=== PATIENT | male | born 1955 | race Caucasian/White ===

== ENCOUNTER → 2017-03-03 | Outpatient (REF) | payer OTHER ==
[~2017-03-03] MED LIST: ALDA25TA2 PO; ASPI1TAB PO; ASPI325T OR; AZOR PO; B12 PO; CALC1CAP31 PO; CALCCHW12 OR; COLA100C5 PO; CORE25TA PO; CORL1.7T PO; D 50CAP PO; EFFI10TA4 PO; FERR325T3 PO; FOLI1TAB OR; FOLI800T PO; HYDR-3910 PO; HYDR10TA3 OR; HYDR200T3 PO; HYDR25TA7 OR; IMDU60TA OR; INSULANT SC; INSULIN; INSUR50VL SC; ISOS30TAB PO; ISOS60TA2 PO; LACT10SO29 PO; LINZ290C PO; MAGN400T PO; METH2.5TA PO; MIRA33504 PO; NITR4TASL SL; OMEP20TA7 OR; OXYC1TAB23 PO; POTA20TA2 OR; PRAV80TA2 PO; PRED25TA PO; PROBCAP8 PO; PROT1TAB2 PO; RENEXA; RHEU2.5T PO; SENO8.6T5 PO; TERA5CAP OR; TOPR25TA OR; TORS20TA2 OR; TORS20TA2 PO; VIT D 2000 PO; VITA-108 PO; VITA250T19 PO; VITA500T3 PO; ZOCO80TA OR; ZYLO300T4 PO; [UNRECOGNIZED DRUG - OTHER]
[2017-03-03 18:23] LABS: FREE T4 1.08 NG/DL (0.76-1.46)
== END ==
LOC: M LAB REF 17:16
PROVIDERS: ATTEND Internal Medicine Nephrology
DX: E03.9 Hypothyroidism, unspecified (principal)

== ENCOUNTER 2018-03-05 09:40 | Inpatient (IN) | payer OTHER, MEDICARE ==
[2018-03-05 11:03] LABS: VENOUS BASE EXCESS 6.1 (-2.0-2.0); VENOUS HCO3 33.1 MEQ/L (23.0-27.0); VENOUS O2 SATURATION 45.6 % (60.0-80.0); VENOUS PARTIAL PRESSURE CO2 60.5 mmHg (38.0-50.0); VENOUS PARTIAL PRESSURE O2 27.5 mmHg (30.0-50.0); VENOUS PH 7.356 UNITS (7.330-7.430)
[2018-03-05 11:08] LABS: BASO % 0.3 % (0.0-1.0); HEMATOCRIT 32.5 % (42.0-52.0); HEMOGLOBIN 10.2 g/dl (13.5-17.5); IMMATURE GRANULOCYTE % 0.3 % (0-3.0); LYMPH # 0.4 10^3/uL (1.5-4.5); LYMPH % 5.7 % (24.0-44.0); MEAN CORPUSCULAR HEMOGLOBIN 32.2 pg (27.0-33.0); MEAN CORPUSCULAR HGB CONC 31.4 g/dl (32.0-36.5); MEAN CORPUSCULAR VOLUME 102.5 fl (80.0-96.0); MONO # 0.3 10^3/uL (0.0-0.8); MONO % 3.7 % (0.0-5.0); NEUTROPHILS # 6.1 10^3/uL (1.8-7.7); PLATELET COUNT, AUTOMATED 187 10^3/uL (150-450); RED BLOOD COUNT 3.17 10^6/uL (4.30-6.10); RED CELL DISTRIBUTION WIDTH 15.1 % (11.5-14.5); WHITE BLOOD COUNT 6.8 10^3/uL (4.0-10.0)
[2018-03-05 11:19] LABS: INR 1.09; PROTHROMBIN TIME 14.3 SECONDS (12.1-14.4)
[2018-03-05 11:32] LABS: LACTIC ACID SEPSIS PROTOCOL 1.3 MMOL/L (0.4-2.0)
[2018-03-05 11:41] LABS: ALBUMIN 2.9 GM/DL (3.2-5.2); ALBUMIN/GLOBULIN RATIO 0.67 (1.00-1.93); ALKALINE PHOSPHATASE 78 U/L (45-117); ALT/SGPT 21 U/L (12-78); ANION GAP 10 MEQ/L (8-16); AST/SGOT 27 U/L (7-37); BILIRUBIN,DIRECT 0.2 MG/DL (0.0-0.2); BILIRUBIN,TOTAL 0.6 MG/DL (0.2-1.0); BLOOD UREA NITROGEN 57 MG/DL (7-18); CALCIUM LEVEL 8.8 MG/DL (8.8-10.2); CARBON DIOXIDE LEVEL 31 MEQ/L (21-32); CHLORIDE LEVEL 102 MEQ/L (98-107); CPK CREATINE PHOSPHOKINASE 72 U/L (39-308); CREATININE FOR GFR 2.42 MG/DL (0.70-1.30); GLOMERULAR FILTRATION RATE 29.3 (>49); GLUCOSE, FASTING 90 MG/DL (70-100); MB/CK RELATIVE INDEX 3.47 (< OR =4); NT-PRO BNP 8732 PG/ML (<125); SODIUM LEVEL 143 MEQ/L (136-145); TOTAL PROTEIN 7.2 GM/DL (6.4-8.2); TROPONIN I 0.08 NG/ML (< 0.10)
[2018-03-05] MEDS ORDERED: ONDANSETRON 4 MG TAB (S0181) PO (13:15)
[2018-03-05] MEDS ORDERED: NITROGLYCERIN 0.4 MG SUBL TABLET SL ×2 (13:15→13:30)
[2018-03-05] MEDS ORDERED: SENNA 8.6 MG TAB (SENOKOT) PO (13:15)
[2018-03-05] MEDS ORDERED: MIRALAX *UNIT DOSE* 17GM PACKET PO (13:15)
[2018-03-05] MEDS ORDERED: DEXTROSE 50% 50 ML SYRINGE IV (13:30)
[2018-03-05] MEDS ORDERED: GLUCAGON FOR INJ 1 MG VIAL (J1610) SC (13:30)
[2018-03-05] MEDS ORDERED: GLUCOSE 4 GM CHEW TABLET PO (13:30)
[2018-03-05] MEDS ORDERED: PILL CRUSHER/CUTTER 1 EACH XX (14:00)
[2018-03-05 14:29] LABS: IRON (FE) 40 UG/DL (65-175); PERCENT SATURATION 10.9 % (19.7-50.0); TOTAL IRON BINDING CAPACITY 367 UG/DL (250-450); URIC ACID 5.4 MG/DL (3.5-7.2)
[2018-03-05 15:04] LABS: BEDSIDE GLUCOSE 167 MG/DL (80-115)
[2018-03-05] MEDS: LEVEMIR (INSULIN DETEMIR) 1 UNITS/0.01ML SC (15:10)
[2018-03-05] MEDS: HEPARIN SOD (PORCINE) 5000 UNITS/ML VIAL SC ×2 (15:10→21:36)
[2018-03-05 16:31] LABS: TROPONIN I 0.08 NG/ML (< 0.10)
[2018-03-05] MEDS: ISOSORBIDE MON. (IMDUR) 30 MG XR TAB PO ×2 (17:13→17:18)
[2018-03-05] MEDS: BUMETANIDE IV (17:15)
[2018-03-05] MEDS: NS IV (17:15)
[2018-03-05] MEDS: CEPHALEXIN 500 MG CAP PO ×2 (17:17→21:36)
[2018-03-05] MEDS: CYANOCOBALAMIN 500 MCG TAB PO ×2 (17:17→21:36)
[2018-03-05] MEDS: HumaLOG INSULIN (NovoLOG) PER UNIT SC (17:27)
[2018-03-05] MEDS: CALCITRIOL 0.25 MCG CAP (S0169) PO (17:29)
[2018-03-05 18:04] LABS: BEDSIDE GLUCOSE 179 MG/DL (80-115)
[2018-03-05 18:11] LABS: APPEARANCE, URINE CLEAR (CLEAR); BACTERIA, URINE AUTO NEGATIVE (NEGATIVE); BILIRUBIN, URINE AUTO NEGATIVE (NEGATIVE); BLOOD, URINE BLOOD NEGATIVE (NEGATIVE); COLOR, URINE YELLOW (YELLOW); GLUCOSE, URINE (UA) AUTO NEGATIVE (NEGATIVE); KETONE, URINE AUTO NEGATIVE (NEGATIVE); LEUKOCYTE ESTERASE, URINE AUTO NEGATIVE (NEGATIVE); NITRITE, URINE AUTO NEGATIVE (NEGATIVE); PROTEIN, URINE AUTO NEGATIVE (NEGATIVE); RBC, URINE AUTO 1 /HPF (0-3); SPECIFIC GRAVITY URINE AUTO 1.008 (1.002-1.035); SQUAMOUS EPITHELIAL CELL UR AU 0 /HPF (0-6); UROBILINOGEN, URINE AUTO 0.2 mg/dL (0.0-2.0); WBC, URINE AUTO 0 /HPF (0-3)
[2018-03-05 20:39] LABS: BEDSIDE GLUCOSE 269 MG/DL (80-115)
[2018-03-05] MEDS: CARVedilol 3.125 MG TAB PO (21:35)
[2018-03-05] MEDS: PRAVASTATIN 20 MG TAB PO (21:36)
[2018-03-05] MEDS: POTASSIUM CHLORIDE 10 MEQ SR TABLET PO (21:36)
[2018-03-05] MEDS: CLOPIDOGREL 75 MG TAB PO (21:37)
[2018-03-05] MEDS: GABAPENTIN 100 MG CAP PO (21:37)
[2018-03-05] MEDS: PANTOPRAZOLE 40MG TAB (PROTONIX) PO (21:37)
[2018-03-05] MEDS: FEBUXOSTAT 40 MG TABLET (ULORIC) PO (21:37)
[2018-03-05] MEDS: rOPINIRole 1MG TAB PO (21:38)
[2018-03-05 22:52] LABS: TROPONIN I 0.06 NG/ML (< 0.10)
[2018-03-06 04:58] LABS: HEMATOCRIT 30.6 % (42.0-52.0); HEMOGLOBIN 9.4 g/dl (13.5-17.5); MEAN CORPUSCULAR HEMOGLOBIN 31.3 pg (27.0-33.0); MEAN CORPUSCULAR HGB CONC 30.7 g/dl (32.0-36.5); PLATELET COUNT, AUTOMATED 169 10^3/uL (150-450); RED CELL DISTRIBUTION WIDTH 14.9 % (11.5-14.5); WHITE BLOOD COUNT 5.3 10^3/uL (4.0-10.0)
[2018-03-06] MEDS: HEPARIN SOD (PORCINE) 5000 UNITS/ML VIAL SC ×3 (05:12→21:00)
[2018-03-06 05:27] LABS: ANION GAP 7 MEQ/L (8-16); BLOOD UREA NITROGEN 61 MG/DL (7-18); CALCIUM LEVEL 8.7 MG/DL (8.8-10.2); CARBON DIOXIDE LEVEL 33 MEQ/L (21-32); CHLORIDE LEVEL 103 MEQ/L (98-107); CREATININE FOR GFR 2.55 MG/DL (0.70-1.30); FREE T4 1.02 NG/DL (0.76-1.46); GLOMERULAR FILTRATION RATE 27.5 (>49); GLUCOSE, FASTING 243 MG/DL (70-100); POTASSIUM SERUM 3.8 MEQ/L (3.5-5.1); SODIUM LEVEL 143 MEQ/L (136-145)
[2018-03-06] MEDS: ASPIRIN 81 MG ENTERIC TAB PO (09:00)
[2018-03-06] MEDS: HumaLOG INSULIN (NovoLOG) PER UNIT SC ×3 (09:25→17:41)
[2018-03-06] MEDS: THIAMINE 100 MG TAB PO (09:27)
[2018-03-06] MEDS: POTASSIUM CHLORIDE 10 MEQ SR TABLET PO ×2 (09:28→20:48)
[2018-03-06] MEDS: CARVedilol 3.125 MG TAB PO ×2 (09:29→20:48)
[2018-03-06] MEDS: VITAMIN D 1,000 INTERNATIONAL UNITS TABLET PO (09:29)
[2018-03-06] MEDS: PANTOPRAZOLE 40MG TAB (PROTONIX) PO ×2 (09:30→20:48)
[2018-03-06] MEDS: CEPHALEXIN 500 MG CAP PO (09:30)
[2018-03-06] MEDS: MAGNESIUM OXIDE 400 MG TAB (MAG-OX) PO (09:30)
[2018-03-06] MEDS: ISOSORBIDE MON. (IMDUR) 30 MG XR TAB PO ×3 (09:31→20:48)
[2018-03-06] MEDS: CYANOCOBALAMIN 500 MCG TAB PO ×3 (09:31→20:48)
[2018-03-06 11:12] LABS: MAGNESIUM LEVEL 2.5 MG/DL (1.8-2.4)
[2018-03-06] MEDS: predniSONE 2.5 MG TAB PO (11:14)
[2018-03-06 12:15] LABS: BEDSIDE GLUCOSE 196 MG/DL (80-115)
[2018-03-06] MEDS: CEFTAROLINE FOSAMIL 300 MG in D5W 50 ML IV ×2 (12:36→23:51)
[2018-03-06] MEDS: FUROSEMIDE injection 250 MG in D5W 225 ML IV (12:36)
[2018-03-06 17:21] LABS: BEDSIDE GLUCOSE 245 MG/DL (80-115)
[2018-03-06 20:10] LABS: BEDSIDE GLUCOSE 285 MG/DL (80-115)
[2018-03-06] MEDS: FEBUXOSTAT 40 MG TABLET (ULORIC) PO (20:47)
[2018-03-06] MEDS: GABAPENTIN 100 MG CAP PO (20:48)
[2018-03-06] MEDS: CLOPIDOGREL 75 MG TAB PO (20:48)
[2018-03-06] MEDS: rOPINIRole 1MG TAB PO (20:49)
[2018-03-06] MEDS: LEVEMIR (INSULIN DETEMIR) 1 UNITS/0.01ML SC (20:49)
[2018-03-06] MEDS: PRAVASTATIN 20 MG TAB PO (20:51)
[2018-03-07 05:23] LABS: HEMATOCRIT 29.5 % (42.0-52.0); HEMOGLOBIN 9.2 g/dl (13.5-17.5); MEAN CORPUSCULAR HEMOGLOBIN 31.5 pg (27.0-33.0); MEAN CORPUSCULAR HGB CONC 31.2 g/dl (32.0-36.5); PLATELET COUNT, AUTOMATED 156 10^3/uL (150-450); RED BLOOD COUNT 2.92 10^6/uL (4.30-6.10); WHITE BLOOD COUNT 5.2 10^3/uL (4.0-10.0)
[2018-03-07 05:50] LABS: ANION GAP 7 MEQ/L (8-16); BLOOD UREA NITROGEN 62 MG/DL (7-18); CALCIUM LEVEL 8.8 MG/DL (8.8-10.2); CARBON DIOXIDE LEVEL 32 MEQ/L (21-32); CHLORIDE LEVEL 103 MEQ/L (98-107); CREATININE FOR GFR 2.45 MG/DL (0.70-1.30); GLOMERULAR FILTRATION RATE 28.9 (>49); GLUCOSE, FASTING 242 MG/DL (70-100); POTASSIUM SERUM 4.1 MEQ/L (3.5-5.1); SODIUM LEVEL 142 MEQ/L (136-145)
[2018-03-07] MEDS: HEPARIN SOD (PORCINE) 5000 UNITS/ML VIAL SC ×3 (06:15→20:41)
[2018-03-07] MEDS: HumaLOG INSULIN (NovoLOG) PER UNIT SC ×3 (08:49→16:54)
[2018-03-07] MEDS: ASPIRIN 81 MG ENTERIC TAB PO (08:49)
[2018-03-07] MEDS: CYANOCOBALAMIN 500 MCG TAB PO ×3 (08:49→20:41)
[2018-03-07] MEDS: CALCITRIOL 0.25 MCG CAP (S0169) PO (08:49)
[2018-03-07] MEDS: PANTOPRAZOLE 40MG TAB (PROTONIX) PO ×2 (08:50→20:40)
[2018-03-07] MEDS: predniSONE 2.5 MG TAB PO (08:50)
[2018-03-07] MEDS: ISOSORBIDE MON. (IMDUR) 30 MG XR TAB PO ×3 (08:50→20:41)
[2018-03-07] MEDS: POTASSIUM CHLORIDE 10 MEQ SR TABLET PO ×2 (08:51→20:46)
[2018-03-07] MEDS: THIAMINE 100 MG TAB PO (08:51)
[2018-03-07] MEDS: CARVedilol 3.125 MG TAB PO ×2 (08:51→20:40)
[2018-03-07] MEDS: VITAMIN D 1,000 INTERNATIONAL UNITS TABLET PO (08:51)
[2018-03-07 12:27] LABS: BEDSIDE GLUCOSE 226 MG/DL (80-115)
[2018-03-07] MEDS: FUROSEMIDE injection 250 MG in D5W 225 ML IV (12:44)
[2018-03-07] MEDS: CEFTAROLINE FOSAMIL 300 MG in D5W 50 ML IV (12:44)
[2018-03-07 16:45] LABS: BEDSIDE GLUCOSE 209 MG/DL (80-115)
[2018-03-07] MEDS: PRAVASTATIN 20 MG TAB PO (20:39)
[2018-03-07] MEDS: FEBUXOSTAT 40 MG TABLET (ULORIC) PO (20:40)
[2018-03-07] MEDS: CLOPIDOGREL 75 MG TAB PO (20:40)
[2018-03-07] MEDS: LEVEMIR (INSULIN DETEMIR) 1 UNITS/0.01ML SC (20:42)
[2018-03-07 20:46] LABS: BEDSIDE GLUCOSE 265 MG/DL (80-115)
[2018-03-07] MEDS: rOPINIRole 1MG TAB PO (20:46)
[2018-03-07] MEDS: GABAPENTIN 100 MG CAP PO (20:47)
[2018-03-08] MEDS: CEFTAROLINE FOSAMIL 300 MG in D5W 50 ML IV ×2 (00:26→12:21)
[2018-03-08 05:50] LABS: HEMATOCRIT 33.4 % (42.0-52.0); HEMOGLOBIN 9.5 g/dl (13.5-17.5); MEAN CORPUSCULAR HGB CONC 28.4 g/dl (32.0-36.5); MEAN CORPUSCULAR VOLUME 112.5 fl (80.0-96.0); PLATELET COUNT, AUTOMATED 145 10^3/uL (150-450); RED BLOOD COUNT 2.97 10^6/uL (4.30-6.10); RED CELL DISTRIBUTION WIDTH 14.7 % (11.5-14.5)
[2018-03-08 06:07] LABS: ANION GAP 6 MEQ/L (8-16); BLOOD UREA NITROGEN 61 MG/DL (7-18); CALCIUM LEVEL 9.1 MG/DL (8.8-10.2); CARBON DIOXIDE LEVEL 34 MEQ/L (21-32); CHLORIDE LEVEL 102 MEQ/L (98-107); CREATININE FOR GFR 2.48 MG/DL (0.70-1.30); GLOMERULAR FILTRATION RATE 28.4 (>49); GLUCOSE, FASTING 215 MG/DL (70-100); POTASSIUM SERUM 4.2 MEQ/L (3.5-5.1); SODIUM LEVEL 142 MEQ/L (136-145)
[2018-03-08] MEDS: HEPARIN SOD (PORCINE) 5000 UNITS/ML VIAL SC ×3 (07:15→21:38)
[2018-03-08] MEDS: HumaLOG INSULIN (NovoLOG) PER UNIT SC ×4 (08:15→21:00)
[2018-03-08] MEDS: POTASSIUM CHLORIDE 10 MEQ SR TABLET PO ×2 (08:16→21:36)
[2018-03-08] MEDS: THIAMINE 100 MG TAB PO (08:16)
[2018-03-08] MEDS: predniSONE 2.5 MG TAB PO (08:16)
[2018-03-08] MEDS: PANTOPRAZOLE 40MG TAB (PROTONIX) PO ×2 (08:16→21:37)
[2018-03-08] MEDS: ASPIRIN 81 MG ENTERIC TAB PO (08:17)
[2018-03-08] MEDS: CYANOCOBALAMIN 500 MCG TAB PO ×3 (08:17→21:36)
[2018-03-08] MEDS: VITAMIN D 1,000 INTERNATIONAL UNITS TABLET PO (08:17)
[2018-03-08] MEDS: ISOSORBIDE MON. (IMDUR) 30 MG XR TAB PO ×3 (08:18→21:35)
[2018-03-08] MEDS: CARVedilol 3.125 MG TAB PO ×2 (08:18→21:35)
[2018-03-08] MEDS: MAGNESIUM OXIDE 400 MG TAB (MAG-OX) PO (08:18)
[2018-03-08 11:15] LABS: BEDSIDE GLUCOSE 130 MG/DL (80-115)
[2018-03-08] MEDS: FUROSEMIDE injection 250 MG in D5W 225 ML IV (14:18)
[2018-03-08 16:29] LABS: BEDSIDE GLUCOSE 175 MG/DL (80-115)
[2018-03-08 20:19] LABS: BEDSIDE GLUCOSE 252 MG/DL (80-115)
[2018-03-08] MEDS: LEVEMIR (INSULIN DETEMIR) 1 UNITS/0.01ML SC (21:00)
[2018-03-08] MEDS: FEBUXOSTAT 40 MG TABLET (ULORIC) PO (21:34)
[2018-03-08] MEDS: PRAVASTATIN 20 MG TAB PO (21:35)
[2018-03-08] MEDS: CLOPIDOGREL 75 MG TAB PO (21:35)
[2018-03-08] MEDS: GABAPENTIN 100 MG CAP PO (21:36)
[2018-03-08] MEDS: rOPINIRole 1MG TAB PO (21:37)
[2018-03-09] MEDS: CEFTAROLINE FOSAMIL 300 MG in D5W 50 ML IV ×2 (00:05→12:01)
[2018-03-09 05:54] LABS: HEMOGLOBIN 9.4 g/dl (13.5-17.5); MEAN CORPUSCULAR HEMOGLOBIN 30.9 pg (27.0-33.0); MEAN CORPUSCULAR HGB CONC 30.3 g/dl (32.0-36.5); PLATELET COUNT, AUTOMATED 145 10^3/uL (150-450); RED BLOOD COUNT 3.04 10^6/uL (4.30-6.10); RED CELL DISTRIBUTION WIDTH 15.2 % (11.5-14.5); WHITE BLOOD COUNT 4.9 10^3/uL (4.0-10.0)
[2018-03-09 06:11] LABS: ANION GAP 4 MEQ/L (8-16); BLOOD UREA NITROGEN 65 MG/DL (7-18); CARBON DIOXIDE LEVEL 38 MEQ/L (21-32); CHLORIDE LEVEL 100 MEQ/L (98-107); CREATININE FOR GFR 2.73 MG/DL (0.70-1.30); GLOMERULAR FILTRATION RATE 25.5 (>49); GLUCOSE, FASTING 125 MG/DL (70-100); POTASSIUM SERUM 3.9 MEQ/L (3.5-5.1); SODIUM LEVEL 142 MEQ/L (136-145)
[2018-03-09] MEDS: HEPARIN SOD (PORCINE) 5000 UNITS/ML VIAL SC ×3 (06:15→22:00)
[2018-03-09] MEDS: PANTOPRAZOLE 40MG TAB (PROTONIX) PO ×2 (07:59→20:17)
[2018-03-09] MEDS: THIAMINE 100 MG TAB PO (08:00)
[2018-03-09] MEDS: ASPIRIN 81 MG ENTERIC TAB PO (08:00)
[2018-03-09] MEDS: CYANOCOBALAMIN 500 MCG TAB PO ×3 (08:00→20:18)
[2018-03-09] MEDS: ISOSORBIDE MON. (IMDUR) 30 MG XR TAB PO ×3 (08:00→20:18)
[2018-03-09] MEDS: VITAMIN D 1,000 INTERNATIONAL UNITS TABLET PO (08:01)
[2018-03-09] MEDS: CALCITRIOL 0.25 MCG CAP (S0169) PO (08:01)
[2018-03-09] MEDS: CARVedilol 3.125 MG TAB PO ×2 (08:01→20:17)
[2018-03-09] MEDS: POTASSIUM CHLORIDE 10 MEQ SR TABLET PO ×2 (08:01→20:16)
[2018-03-09] MEDS: HumaLOG INSULIN (NovoLOG) PER UNIT SC ×4 (08:02→20:18)
[2018-03-09] MEDS: METHOTREXATE 2.5 MG TAB (J8610 PER 2.5MG) PO (08:02)
[2018-03-09] MEDS: predniSONE 2.5 MG TAB PO (09:48)
[2018-03-09] MEDS: TORSEMIDE 100 MG TAB PO ×3 (11:08→17:41)
[2018-03-09] MEDS: metOLazone 2.5 MG TAB PO ×2 (11:09→17:40)
[2018-03-09 11:33] LABS: BEDSIDE GLUCOSE 59 MG/DL (80-115)
[2018-03-09 12:01] LABS: BEDSIDE GLUCOSE 58 MG/DL (80-115)
[2018-03-09] MEDS ORDERED: SLF 3 ML SYR IV (12:15)
[2018-03-09 12:34] LABS: BEDSIDE GLUCOSE 86 MG/DL (80-115)
[2018-03-09] MEDS: SLF 3 ML SYR IV ×2 (14:00→22:00)
[2018-03-09] MEDS: ACETAMINOPHEN TAB 650MG DOSE (2X325MG) PO ×2 (16:14→20:26)
[2018-03-09 16:30] LABS: BEDSIDE GLUCOSE 298 MG/DL (80-115)
[2018-03-09 20:00] LABS: BEDSIDE GLUCOSE 238 MG/DL (80-115)
[2018-03-09] MEDS: PRAVASTATIN 20 MG TAB PO (20:16)
[2018-03-09] MEDS: FEBUXOSTAT 40 MG TABLET (ULORIC) PO (20:16)
[2018-03-09] MEDS: rOPINIRole 1MG TAB PO (20:16)
[2018-03-09] MEDS: CLOPIDOGREL 75 MG TAB PO (20:18)
[2018-03-09] MEDS: GABAPENTIN 100 MG CAP PO (20:18)
[2018-03-09] MEDS: LEVEMIR (INSULIN DETEMIR) 1 UNITS/0.01ML SC (20:19)
[2018-03-10] MEDS: CEFTAROLINE FOSAMIL 300 MG in D5W 50 ML IV ×3 (00:23→23:31)
[2018-03-10 05:58] LABS: HEMATOCRIT 31.6 % (42.0-52.0); HEMOGLOBIN 9.8 g/dl (13.5-17.5); MEAN CORPUSCULAR HEMOGLOBIN 31.3 pg (27.0-33.0); PLATELET COUNT, AUTOMATED 158 10^3/uL (150-450); RED BLOOD COUNT 3.13 10^6/uL (4.30-6.10); RED CELL DISTRIBUTION WIDTH 15.2 % (11.5-14.5); WHITE BLOOD COUNT 6.3 10^3/uL (4.0-10.0)
[2018-03-10] MEDS: SLF 3 ML SYR IV ×3 (06:00→20:53)
[2018-03-10 06:28] LABS: ANION GAP 5 MEQ/L (8-16); BLOOD UREA NITROGEN 68 MG/DL (7-18); CARBON DIOXIDE LEVEL 38 MEQ/L (21-32); CHLORIDE LEVEL 97 MEQ/L (98-107); CREATININE FOR GFR 3.07 MG/DL (0.70-1.30); GLOMERULAR FILTRATION RATE 22.2 (>49); GLUCOSE, FASTING 178 MG/DL (70-100); POTASSIUM SERUM 4.2 MEQ/L (3.5-5.1); SODIUM LEVEL 140 MEQ/L (136-145); URIC ACID 5.9 MG/DL (3.5-7.2)
[2018-03-10] MEDS: HEPARIN SOD (PORCINE) 5000 UNITS/ML VIAL SC ×3 (06:33→20:45)
[2018-03-10] MEDS: metOLazone 2.5 MG TAB PO (08:23)
[2018-03-10] MEDS: HumaLOG INSULIN (NovoLOG) PER UNIT SC ×4 (08:23→20:36)
[2018-03-10] MEDS: VITAMIN D 1,000 INTERNATIONAL UNITS TABLET PO (08:23)
[2018-03-10] MEDS: TORSEMIDE 100 MG TAB PO ×2 (08:24→18:10)
[2018-03-10] MEDS: THIAMINE 100 MG TAB PO (08:24)
[2018-03-10] MEDS: MAGNESIUM OXIDE 400 MG TAB (MAG-OX) PO (08:24)
[2018-03-10] MEDS: POTASSIUM CHLORIDE 10 MEQ SR TABLET PO ×2 (08:25→20:46)
[2018-03-10] MEDS: ASPIRIN 81 MG ENTERIC TAB PO (08:25)
[2018-03-10] MEDS: CYANOCOBALAMIN 500 MCG TAB PO ×3 (08:25→20:51)
[2018-03-10] MEDS: CARVedilol 3.125 MG TAB PO ×2 (08:25→20:49)
[2018-03-10] MEDS: ISOSORBIDE MON. (IMDUR) 30 MG XR TAB PO ×3 (08:26→20:50)
[2018-03-10] MEDS: predniSONE 2.5 MG TAB PO (08:26)
[2018-03-10] MEDS: PANTOPRAZOLE 40MG TAB (PROTONIX) PO ×2 (08:26→20:49)
[2018-03-10] MEDS: metOLazone 5 MG TAB PO ×2 (10:45→18:10)
[2018-03-10 12:58] LABS: BEDSIDE GLUCOSE 177 MG/DL (80-115)
[2018-03-10 17:52] LABS: BEDSIDE GLUCOSE 200 MG/DL (80-115)
[2018-03-10 20:37] LABS: BEDSIDE GLUCOSE 246 MG/DL (80-115)
[2018-03-10] MEDS: LEVEMIR (INSULIN DETEMIR) 1 UNITS/0.01ML SC (20:45)
[2018-03-10] MEDS: PRAVASTATIN 20 MG TAB PO (20:47)
[2018-03-10] MEDS: FEBUXOSTAT 40 MG TABLET (ULORIC) PO (20:47)
[2018-03-10] MEDS: rOPINIRole 1MG TAB PO (20:47)
[2018-03-10] MEDS: GABAPENTIN 100 MG CAP PO (20:49)
[2018-03-10] MEDS: CLOPIDOGREL 75 MG TAB PO (20:50)
[2018-03-11 05:54] LABS: HEMATOCRIT 32.1 % (42.0-52.0); MEAN CORPUSCULAR HEMOGLOBIN 31.6 pg (27.0-33.0); MEAN CORPUSCULAR HGB CONC 31.2 g/dl (32.0-36.5); MEAN CORPUSCULAR VOLUME 101.6 fl (80.0-96.0); PLATELET COUNT, AUTOMATED 171 10^3/uL (150-450); RED BLOOD COUNT 3.16 10^6/uL (4.30-6.10); RED CELL DISTRIBUTION WIDTH 15.1 % (11.5-14.5); WHITE BLOOD COUNT 6.5 10^3/uL (4.0-10.0)
[2018-03-11] MEDS: SLF 3 ML SYR IV ×3 (06:00→21:13)
[2018-03-11] MEDS: HEPARIN SOD (PORCINE) 5000 UNITS/ML VIAL SC ×3 (06:00→21:09)
[2018-03-11 06:15] LABS: ANION GAP 6 MEQ/L (8-16); BLOOD UREA NITROGEN 83 MG/DL (7-18); CALCIUM LEVEL 9.4 MG/DL (8.8-10.2); CARBON DIOXIDE LEVEL 39 MEQ/L (21-32); CHLORIDE LEVEL 93 MEQ/L (98-107); GLOMERULAR FILTRATION RATE 20.5 (>49); GLUCOSE, FASTING 183 MG/DL (70-100); PHOSPHORUS LEVEL 4.5 MG/DL (2.5-4.9); POTASSIUM SERUM 4.1 MEQ/L (3.5-5.1); SODIUM LEVEL 138 MEQ/L (136-145)
[2018-03-11] MEDS: THIAMINE 100 MG TAB PO (09:08)
[2018-03-11] MEDS: DOCUSATE SODIUM 100 MG CAP PO (09:08)
[2018-03-11] MEDS: CYANOCOBALAMIN 500 MCG TAB PO ×3 (09:10→21:10)
[2018-03-11] MEDS: CALCITRIOL 0.25 MCG CAP (S0169) PO (09:10)
[2018-03-11] MEDS: predniSONE 2.5 MG TAB PO (09:10)
[2018-03-11] MEDS: CARVedilol 3.125 MG TAB PO ×2 (09:11→21:11)
[2018-03-11] MEDS: ISOSORBIDE MON. (IMDUR) 30 MG XR TAB PO ×3 (09:12→21:12)
[2018-03-11] MEDS: VITAMIN D 1,000 INTERNATIONAL UNITS TABLET PO (09:12)
[2018-03-11] MEDS: metOLazone 5 MG TAB PO ×2 (09:12→18:04)
[2018-03-11] MEDS: PANTOPRAZOLE 40MG TAB (PROTONIX) PO ×2 (09:12→21:11)
[2018-03-11] MEDS: TORSEMIDE 100 MG TAB PO ×2 (09:12→18:04)
[2018-03-11] MEDS: GABAPENTIN 100 MG CAP PO ×2 (09:13→21:11)
[2018-03-11] MEDS: POTASSIUM CHLORIDE 10 MEQ SR TABLET PO ×2 (09:13→21:10)
[2018-03-11] MEDS: ASPIRIN 81 MG ENTERIC TAB PO (09:13)
[2018-03-11] MEDS: HumaLOG INSULIN (NovoLOG) PER UNIT SC ×4 (09:14→21:09)
[2018-03-11 12:10] LABS: CREATININE CLEARANCE, URINE 20.5 ML/MIN (85-125); CREATININE, SERUM 3.3 MG/DL (0.6-1.3); CREATININE, URINE 28.5 MG/DL; TOTAL VOLUME, URINE 3425 ML
[2018-03-11 12:42] LABS: BEDSIDE GLUCOSE 119 MG/DL (80-115)
[2018-03-11 17:27] LABS: BEDSIDE GLUCOSE 285 MG/DL (80-115)
[2018-03-11 20:38] LABS: BEDSIDE GLUCOSE 318 MG/DL (80-115)
[2018-03-11] MEDS: PRAVASTATIN 20 MG TAB PO (21:07)
[2018-03-11] MEDS: FEBUXOSTAT 40 MG TABLET (ULORIC) PO (21:08)
[2018-03-11] MEDS: LEVEMIR (INSULIN DETEMIR) 1 UNITS/0.01ML SC (21:09)
[2018-03-11] MEDS: rOPINIRole 1MG TAB PO (21:10)
[2018-03-11] MEDS: CLOPIDOGREL 75 MG TAB PO (21:12)
[2018-03-12 05:53] LABS: HEMOGLOBIN 10.6 g/dl (13.5-17.5); MEAN CORPUSCULAR HEMOGLOBIN 31.3 pg (27.0-33.0); MEAN CORPUSCULAR HGB CONC 31.2 g/dl (32.0-36.5); MEAN CORPUSCULAR VOLUME 100.3 fl (80.0-96.0); PLATELET COUNT, AUTOMATED 196 10^3/uL (150-450); RED BLOOD COUNT 3.39 10^6/uL (4.30-6.10); RED CELL DISTRIBUTION WIDTH 15.1 % (11.5-14.5); WHITE BLOOD COUNT 5.9 10^3/uL (4.0-10.0)
[2018-03-12] MEDS: HEPARIN SOD (PORCINE) 5000 UNITS/ML VIAL SC ×3 (05:56→21:13)
[2018-03-12] MEDS: BISACODYL 5 MG TAB PO (05:56)
[2018-03-12] MEDS: SLF 3 ML SYR IV ×3 (05:58→21:13)
[2018-03-12 06:19] LABS: ALBUMIN 3.1 GM/DL (3.2-5.2); ANION GAP 6 MEQ/L (8-16); BLOOD UREA NITROGEN 85 MG/DL (7-18); CALCIUM LEVEL 9.2 MG/DL (8.8-10.2); CARBON DIOXIDE LEVEL 40 MEQ/L (21-32); CHLORIDE LEVEL 92 MEQ/L (98-107); CREATININE FOR GFR 3.71 MG/DL (0.70-1.30); GLOMERULAR FILTRATION RATE 17.9 (>49); GLUCOSE, FASTING 147 MG/DL (70-100); PHOSPHORUS LEVEL 5.2 MG/DL (2.5-4.9); POTASSIUM SERUM 4.1 MEQ/L (3.5-5.1); SODIUM LEVEL 138 MEQ/L (136-145)
[2018-03-12] MEDS: metOLazone 5 MG TAB PO (08:50)
[2018-03-12] MEDS: THIAMINE 100 MG TAB PO (08:50)
[2018-03-12] MEDS: POTASSIUM CHLORIDE 10 MEQ SR TABLET PO ×2 (08:50→21:11)
[2018-03-12] MEDS: TORSEMIDE 100 MG TAB PO ×2 (08:50→16:54)
[2018-03-12] MEDS: ISOSORBIDE MON. (IMDUR) 30 MG XR TAB PO ×3 (08:51→21:11)
[2018-03-12] MEDS: predniSONE 2.5 MG TAB PO (08:51)
[2018-03-12] MEDS: PANTOPRAZOLE 40MG TAB (PROTONIX) PO ×2 (08:51→21:11)
[2018-03-12] MEDS: VITAMIN D 1,000 INTERNATIONAL UNITS TABLET PO (08:51)
[2018-03-12] MEDS: CYANOCOBALAMIN 500 MCG TAB PO ×3 (08:51→21:11)
[2018-03-12] MEDS: ASPIRIN 81 MG ENTERIC TAB PO (08:52)
[2018-03-12] MEDS: HumaLOG INSULIN (NovoLOG) PER UNIT SC ×4 (08:52→21:13)
[2018-03-12] MEDS: MAGNESIUM OXIDE 400 MG TAB (MAG-OX) PO (08:52)
[2018-03-12] MEDS: CARVedilol 3.125 MG TAB PO ×2 (08:52→21:10)
[2018-03-12 12:09] LABS: BEDSIDE GLUCOSE 212 MG/DL (80-115)
[2018-03-12 16:55] LABS: BEDSIDE GLUCOSE 206 MG/DL (80-115)
[2018-03-12 20:01] LABS: BEDSIDE GLUCOSE 273 MG/DL (80-115)
[2018-03-12] MEDS: FEBUXOSTAT 40 MG TABLET (ULORIC) PO (21:10)
[2018-03-12] MEDS: CLOPIDOGREL 75 MG TAB PO (21:10)
[2018-03-12] MEDS: rOPINIRole 1MG TAB PO (21:10)
[2018-03-12] MEDS: PRAVASTATIN 20 MG TAB PO (21:10)
[2018-03-12] MEDS: GABAPENTIN 100 MG CAP PO (21:11)
[2018-03-12] MEDS: LEVEMIR (INSULIN DETEMIR) 1 UNITS/0.01ML SC (21:12)
[2018-03-13 05:24] LABS: ALBUMIN 3.1 GM/DL (3.2-5.2); ANION GAP 7 MEQ/L (8-16); BLOOD UREA NITROGEN 92 MG/DL (7-18); CALCIUM LEVEL 8.6 MG/DL (8.8-10.2); CARBON DIOXIDE LEVEL 40 MEQ/L (21-32); CHLORIDE LEVEL 90 MEQ/L (98-107); CREATININE FOR GFR 3.76 MG/DL (0.70-1.30); GLOMERULAR FILTRATION RATE 17.6 (>49); GLUCOSE, FASTING 337 MG/DL (70-100); PHOSPHORUS LEVEL 4.2 MG/DL (2.5-4.9); SODIUM LEVEL 137 MEQ/L (136-145)
[2018-03-13] MEDS: SLF 3 ML SYR IV ×2 (05:59→14:44)
[2018-03-13] MEDS: HEPARIN SOD (PORCINE) 5000 UNITS/ML VIAL SC ×2 (06:02→14:44)
[2018-03-13 06:48] LABS: HEMATOCRIT 34.1 % (42.0-52.0); HEMOGLOBIN 10.8 g/dl (13.5-17.5); MEAN CORPUSCULAR HEMOGLOBIN 31.6 pg (27.0-33.0); MEAN CORPUSCULAR HGB CONC 31.7 g/dl (32.0-36.5); MEAN CORPUSCULAR VOLUME 99.7 fl (80.0-96.0); PLATELET COUNT, AUTOMATED 213 10^3/uL (150-450); RED BLOOD COUNT 3.42 10^6/uL (4.30-6.10); RED CELL DISTRIBUTION WIDTH 15.1 % (11.5-14.5); WHITE BLOOD COUNT 6.5 10^3/uL (4.0-10.0)
[2018-03-13] MEDS: PANTOPRAZOLE 40MG TAB (PROTONIX) PO (08:49)
[2018-03-13] MEDS: predniSONE 2.5 MG TAB PO (08:49)
[2018-03-13] MEDS: VITAMIN D 1,000 INTERNATIONAL UNITS TABLET PO (08:49)
[2018-03-13] MEDS: CALCITRIOL 0.25 MCG CAP (S0169) PO (08:49)
[2018-03-13] MEDS: TORSEMIDE 100 MG TAB PO (08:49)
[2018-03-13] MEDS: THIAMINE 100 MG TAB PO (08:49)
[2018-03-13] MEDS: CYANOCOBALAMIN 500 MCG TAB PO (08:49)
[2018-03-13] MEDS: ASPIRIN 81 MG ENTERIC TAB PO (08:50)
[2018-03-13] MEDS: ISOSORBIDE MON. (IMDUR) 30 MG XR TAB PO (08:50)
[2018-03-13] MEDS: POTASSIUM CHLORIDE 10 MEQ SR TABLET PO (08:50)
[2018-03-13] MEDS: metOLazone 5 MG TAB PO (08:50)
[2018-03-13] MEDS: HumaLOG INSULIN (NovoLOG) PER UNIT SC ×2 (08:51→12:28)
[2018-03-13] MEDS: CARVedilol 3.125 MG TAB PO (08:51)
[2018-03-13 12:08] LABS: BEDSIDE GLUCOSE 209 MG/DL (80-115)
== END 2018-03-13 16:08 | disposition home or self-care (01) | DRG 291 ==
LOC: M ED 09:40 → M ED INP 12:45 → M PCU 16:16
PROVIDERS: Internal Medicine
DX: I13.0 Hypertensive heart and chronic kidney disease with heart failure and stage 1 through stage 4 chronic kidney disease, or unspecified chronic kidney disease (principal); I50.33 Acute on chronic diastolic (congestive) heart failure; N18.4 Chronic kidney disease, stage 4 (severe); I69.354 Hemiplegia and hemiparesis following cerebral infarction affecting left non-dominant side; J96.10 Chronic respiratory failure, unspecified whether with hypoxia or hypercapnia; N25.81 Secondary hyperparathyroidism of renal origin; N17.9 Acute kidney failure, unspecified; L03.116 Cellulitis of left lower limb; E11.22 Type 2 diabetes mellitus with diabetic chronic kidney disease; E11.42 Type 2 diabetes mellitus with diabetic polyneuropathy; E11.21 Type 2 diabetes mellitus with diabetic nephropathy; D63.1 Anemia in chronic kidney disease; J44.9 Chronic obstructive pulmonary disease, unspecified; G47.33 Obstructive sleep apnea (adult) (pediatric); E78.5 Hyperlipidemia, unspecified; M06.9 Rheumatoid arthritis, unspecified; E83.51 Hypocalcemia; G25.81 Restless legs syndrome; L89.621 Pressure ulcer of left heel, stage 1; K59.00 Constipation, unspecified; E11.319 Type 2 diabetes mellitus with unspecified diabetic retinopathy without macular edema; Z86.74 Personal history of sudden cardiac arrest; Z95.5 Presence of coronary angioplasty implant and graft; Z79.4 Long term (current) use of insulin; Z79.82 Long term (current) use of aspirin; Z95.0 Presence of cardiac pacemaker; Z79.02 Long term (current) use of antithrombotics/antiplatelets; Z79.52 Long term (current) use of systemic steroids; Z79.899 Other long term (current) drug therapy; Z91.013 Allergy to seafood; Z98.49 Cataract extraction status, unspecified eye; Z91.041 Radiographic dye allergy status; Z88.8 Allergy status to other drugs, medicaments and biological substances; Z90.49 Acquired absence of other specified parts of digestive tract

== ENCOUNTER 2018-04-11 10:01 | Inpatient (IN) | payer OTHER, MEDICARE ==
[~2018-04-11] VITALS: Ht 172.7 cm; Wt 72.4 kg
[~2018-04-11 10:01] MED LIST changes: +CARV3.12 PO; +CEPH500C PO; +CLOP75TA2 PO; +DULC5TAB PO; +GABA-1171 PO; +INSUHUMDS SC; +ISOS30TA4 PO; +MAGN400T2 PO; +METH2.5T48 PO; -METH2.5TA PO; +METO5TA PO; +MIRA3350 PO; +NITR0.4D6 TD; +PANT40TA3 PO; +POTA10TA16 PO; +ROPI1TAB PO; +SENN18TA PO; +TORS100T PO; +TOUJ1.2I SC; +ULOR80TA PO; +VITA-122 PO; +VITA100T92 PO; +VITA500T53 PO; +ZOFR4TAB16 PO; -ZYLO300T4 PO; +ZYLO300T6 PO
[2018-04-11 10:50] LABS: BASO % 0.1 % (0.0-1.0); HEMATOCRIT 25.9 % (42.0-52.0); HEMOGLOBIN 8.1 g/dl (13.5-17.5); LYMPH # 0.3 10^3/uL (1.5-4.5); LYMPH % 4.4 % (24.0-44.0); MEAN CORPUSCULAR HEMOGLOBIN 30.3 pg (27.0-33.0); MEAN CORPUSCULAR HGB CONC 31.3 g/dl (32.0-36.5); MONO # 0.1 10^3/uL (0.0-0.8); MONO % 1.3 % (0.0-5.0); NEUTROPHILS # 6.7 10^3/uL (1.8-7.7); NEUTROPHILS % 93.8 % (36.0-66.0); PLATELET COUNT, AUTOMATED 181 10^3/uL (150-450); RED BLOOD COUNT 2.67 10^6/uL (4.30-6.10); WHITE BLOOD COUNT 7.1 10^3/uL (4.0-10.0)
[2018-04-11 10:59] LABS: INR 1.13; PARTIAL THROMBOPLASTIN TIME 29.8 SECONDS (25.4-37.6); PROTHROMBIN TIME 14.7 SECONDS (12.1-14.4)
--- NOTE | 2018-04-11 11:02 | REP ---
Chest one-view HISTORY: altered mental status Comparison: 03/05/2018 An increase in interstitial markings is present in the lungs. The cardiac silhouette is enlarged. The pulmonary vasculature is prominent. A cardiac pacemaker is present. A catheter is present in the superior vena cava. Impression: 1. Interstitial edema. 2. Cardiomegaly. Electronically Signed by Norman Tao MD 04/11/2018 10:54 A
[2018-04-11] MEDS ORDERED: INSURSDRX SC (12:05)
[2018-04-11] MEDS ORDERED: ACET500T15 PO (12:05)
[2018-04-11] MEDS ORDERED: B-1250TA2 PO (12:07)
[2018-04-11] MEDS ORDERED: MIDO5TA PO (12:09)
[2018-04-11] MEDS ORDERED: ENTR1TAB PO (12:09)
[2018-04-11] MEDS ORDERED: SIME80TA PO (12:09)
[2018-04-11] MEDS ORDERED: FOLI800C PO (12:15)
[2018-04-11] MEDS ORDERED: MELA5TAB21 PO (12:17)
[2018-04-11 12:32] LABS: ALBUMIN 2.8 GM/DL (3.2-5.2); BILIRUBIN,DIRECT 0.2 MG/DL (0.0-0.2); BILIRUBIN,TOTAL 0.4 MG/DL (0.2-1.0); CALCIUM LEVEL 8.3 MG/DL (8.8-10.2); CREATININE FOR GFR 6.85 MG/DL (0.70-1.30); GLOMERULAR FILTRATION RATE 8.8 (>49); MAGNESIUM LEVEL 1.9 MG/DL (1.8-2.4); MB/CK RELATIVE INDEX 5.1 (< OR =4); POTASSIUM SERUM 4.9 MEQ/L (3.5-5.1); THYROID STIMULATING HORMONE 4.2 uIU/ML (0.358-3.740); TOTAL PROTEIN 6.1 GM/DL (6.4-8.2); TROPONIN I 0.88 NG/ML (< 0.10)
[2018-04-11] MEDS ORDERED: DOCUSATE SODIUM 100 MG CAP PO PRN (14:15)
[2018-04-11] MEDS ORDERED: ACETAMINOPHEN 500 MG TAB PO PRN (14:15)
[2018-04-11] MEDS ORDERED: SIMETHICONE 80 MG CHEW TAB PO PRN (14:15)
[2018-04-11] MEDS ORDERED: NITROGLYCERIN 0.4 MG SUBL TABLET SL PRN (14:15)
[2018-04-11] MEDS ORDERED: SENNA 8.6 MG TAB (SENOKOT) PO PRN (14:15)
[2018-04-11] MEDS ORDERED: BISACODYL 5 MG TAB PO PRN (14:15)
[2018-04-11] MEDS ORDERED: GLUCAGON FOR INJ 1 MG VIAL (J1610) SC PRN (14:30)
[2018-04-11] MEDS ORDERED: PILL CRUSHER/CUTTER 1 EACH XX PRN (14:30)
[2018-04-11] MEDS ORDERED: DEXTROSE 50% 50 ML SYRINGE IV PRN (14:30)
[2018-04-11] MEDS ORDERED: GLUCOSE 4 GM CHEW TABLET PO PRN (14:30)
[2018-04-11 15:30] VITALS: BP 123/59
--- NOTE | 2018-04-11 15:43 | HPE ---
DATE OF ADMISSION: 04/11/2018 This is a 62-year-old male with a past medical history of end-stage renal disease on hemodialysis Tuesdays, , and Saturdays, last dialysis was this past Wednesday, history of coronary artery disease status post multiple myocardial infarctions (MIs), history of two coronary artery bypass grafts (CABGs) one in 2000 and one in 2014 with 29 stents, history of hyperlipidemia, chronic systolic heart failure who presents to the emergency room with increasing shortness of breath since his last dialysis. According to the patient he has been having problems with nocturnal orthopnea that is being progressive to the point where he has to sit up to sleep. He went to Dr. Dinh to his clinic where he was sent to the emergency room (ER) for evaluation and admission for emergent dialysis. Patient is anuric at this time. He was just discharged from [facility] last week for non-ST elevation myocardial infarction (TN) where he had a catheter placed and dialysis commenced. Again his last dialysis was this past Wednesday. Upon further history taking the patient did say that they had trouble with his blood pressure dropping during dialysis so not much fluid was withdrawn, apparently the patient has gained approximately 12 pounds since his last dialysis. He will be admitted for further management. PAST MEDICAL HISTORY: Again past medical history of chronic systolic heart failure, coronary artery disease status post multiple myocardial infarctions, history of CABG in 2000 and also in 2014 with 29 stents placed, history of hyperlipidemia, diabetes, history of hypertension, history of pacemaker placement, history of non-oxygen dependent chronic obstructive pulmonary artery disease (COPD). PAST SURGICAL HISTORY: CABG times two. History of back surgery, cholecystectomy, cataract surgery, left hip surgery, pacemaker placement. ALLERGIES: CONTRAST MEDIA and HYDRALAZINE. FAMILY HISTORY: Significant for early coronary disease and cardiac related deaths. SOCIAL HISTORY: Patient denies tobacco, alcohol or illicit drug use. MEDICATIONS AT HOME: - Tylenol 1 gram twice a day as needed - aspirin 81 mg orally daily - Doculax as needed - calcitriol 0.25 mcg orally daily - Coreg 3.125 mg orally twice daily - cholecalciferol 2000 units daily - Plavix 75 mg orally daily - cobalamin 500 mcg orally three times a day - Colace 100 mg orally three times a day as needed - Uloric 80 mg orally at bedtime - folic acid 2400 mcg orally daily - gabapentin 100 mg orally at bedtime - regular insulin sliding scale - Linzess 290 mcg orally daily as needed - melatonin 5 mg orally at bedtime - methotrexate 50 mg orally every week - midodrine 5 mg orally three times a week, Wednesday, Wednesday, Wednesday - nitroglycerin 0.4 mg sublingual as needed - Zofran 4 mg orally every 8 hours as needed - pantoprazole 4 mg orally twice a day - polyethylene glycol 17 grams orally daily as needed - pravastatin 80 mg orally at bedtime - prednisone 2.5 mg orally daily - ropinirole 1 mg orally at bedtime - Entresto 24/26 mg one tab orally twice daily - senna one tab orally twice daily - simethicone 80 mg orally every 6 as needed - thymine 250 mg orally daily - Toujeo SoloStar 70 units subcutaneous at bedtime. REVIEW OF SYSTEMS: Negative of all ten major systems except what was mentioned in the history of present illness. PHYSICAL EXAMINATION: VITALS: Blood pressure 118/62, heart rate is 74 and regular, respiratory rate is 16, temperature 97, oxygen saturation 97% on room air. HEAD: Atraumatic, normocephalic. NECK: Supple. No jugular venous distention (JVD). LUNGS: Bibasilar crackles. S1, S2, audible. No murmurs appreciated. ABDOMEN: Soft, positive bowel sounds. EXTREMITIES: +1 pedal edema. SKIN: Intact. NEUROLOGIC EXAMINATION: Patient awake, alert, and oriented times three. LABS: WBC 7.1, hemoglobin 9.1, hematocrit 25.9, platelets are 181,000. Sodium 137, potassium 4.9, chloride is 100, CO2 25, anion gap 12, BUN is 58, creatinine is 6.85. Troponin 0.88. Chest x-ray shows interstitial edema and cardiomegaly. IMPRESSION: 1. Acute systolic heart failure. 2. End-stage renal disease. PLAN: Patient is to be admitted to med/surg floor with remote tele. Nephrology has been consulted and they will schedule his dialysis for fluid removal. Since the patient is anuric there is no other way to remove his fluid other than dialysis so no diuretics will be used. We will get a second troponin to rule out acute coronary artery syndrome which I doubt is the case and continue his other preadmission medications.
[2018-04-11] MEDS: HumaLOG INSULIN (NovoLOG) PER UNIT SC SCH ×2 (16:58→21:00)
[2018-04-11] MEDS: THIAMINE 100 MG TAB PO SCH (17:12)
[2018-04-11] MEDS: MIDODRINE 5 MG TAB PO SCH (17:13)
[2018-04-11] MEDS: VITAMIN D 1,000 INTERNATIONAL UNITS TABLET PO SCH (17:13)
[2018-04-11] MEDS: CYANOCOBALAMIN 500 MCG TAB PO SCH ×2 (17:13→21:55)
[2018-04-11] MEDS: CALCITRIOL 0.25 MCG CAP (S0169) PO SCH (17:13)
[2018-04-11] MEDS: ASPIRIN 81 MG ENTERIC TAB PO SCH (17:13)
[2018-04-11] MEDS: FOLIC ACID 1 MG TAB PO SCH (17:14)
[2018-04-11] MEDS: predniSONE 2.5 MG TAB PO SCH (17:55)
[2018-04-11] MEDS ORDERED: DARBEPOETIN 100 MCG/0.5 ML *DIALYSIS* SYRINGE (J0882) IV SCH (18:45)
[2018-04-11] MEDS: CARVedilol 3.125 MG TAB PO SCH (21:00)
[2018-04-11] MEDS ORDERED: LEVEMIR (INSULIN DETEMIR) 1 UNITS/0.01ML SC SCH (21:00)
[2018-04-11] MEDS: PRAVASTATIN 20 MG TAB PO SCH (21:52)
[2018-04-11] MEDS: FEBUXOSTAT 40 MG TABLET (ULORIC) PO SCH (21:52)
[2018-04-11] MEDS: PANTOPRAZOLE 40MG TAB (PROTONIX) PO SCH (21:53)
[2018-04-11] MEDS: ENTRESTO 24-26MG TABLET (SACUBITRIL/VALSARTAN) PO SCH (21:53)
[2018-04-11] MEDS: CLOPIDOGREL 75 MG TAB PO SCH (21:53)
[2018-04-11] MEDS: rOPINIRole 1MG TAB PO SCH (21:53)
[2018-04-11] MEDS: GABAPENTIN 100 MG CAP PO SCH (21:55)
[2018-04-11 22:00] VITALS: BP 114/57
--- NOTE | 2018-04-12 | CR ---
DATE OF CONSULTATION: 04/11/2018 REQUESTING PHYSICIAN: Dr. Curry Archibald CONSULTING PHYSICIAN: Dr. Alejo REASON FOR CONSULTATION: Management of end-stage renal disease and fluid overload. CHIEF COMPLAINT: Patient was sent from nephrology office because of progressive shortness of breath despite recently starting dialysis 2 weeks ago. HISTORY OF THE PRESENT ILLNESS: Mr. Solitario Clark is a 62-year-old male with a past medical history of end-stage renal disease, recently started on hemodialysis 2 weeks ago. He gets hemodialysis every Wednesday, , Wednesday. In his other past medical history, he has extensive medical history of coronary artery disease, status post coronary artery bypass grafting times two, multiple coronary angiograms, and he reports that he has 29 stents in his coronary arteries. He has congestive heart failure with reduced ejection fraction. Multiple other comorbidities as mentioned below. The patient reports that he is having progressive shortness of breath with dyspnea on mild exertion and orthopnea, and abdominal distention and bloating, and dialysis is not helping with that. His most recent cardiac stent was less than 6 months ago. The patient was seen in the nephrology office by Dr. Dinh, and he was advised to go to the hospital for further optimization of his heart failure. The patient is anuric. His fluid status needs to be optimized with hemodialysis. Nephrology service was called for further help in the management of this patient. I saw and evaluated the patient today, evening, at the bedside. His was also present at the bedside. Patient's main concern at this point is shortness of breath and abdominal distention. Today is the patient's regular day of dialysis. PAST MEDICAL HISTORY: Congestive heart failure with reduced ejection fraction. He is supposed to have an automatic implantable cardioverter defibrillator (AICD) placed some time in the near future. Extensive coronary artery disease with 29 stents and coronary artery bypass grafting times two. Hyperlipidemia. Diabetes mellitus, type 2. Hypertension. Chronic obstructive pulmonary disease (COPD). History of CVA in the past. PAST SURGICAL HISTORY: Coronary artery bypass grafting two times; once in 2000 and the second time in 2014. Multiple coronary angioplasties with stent placements, a total of 29 stents. Status post cholecystectomy. Status post left hip surgery. Status post pacemaker placement. History of cataract surgery. Back surgery. ALLERGIES: The patient is allergic to HYDRALAZINE and SHELLFISH allergy. FAMILY HISTORY: There is significant family history of coronary artery disease. Multiple deaths in the family members in their 50s because of heart disease. SOCIAL HISTORY: The patient denies any illicit drug abuse, alcohol abuse, or smoking. REVIEW OF SYSTEMS: CONSTITUTIONAL: The patient reports feeling weak and tired. EYES: He denies any blurred vision, double vision. ENT: He denies any dysphagia, odynophagia. CARDIOVASCULAR: He reports lower extremity edema and congestive heart failure. RESPIRATORY: He reports dyspnea, orthopnea. GASTROINTESTINAL: He reports abdominal distention and ascites. GENITOURINARY: He reports anuria. MUSCULOSKELETAL: He reports lower extremity edema. CENTRAL NERVOUS SYSTEM (MUSIC WORKER): He reports a history of a stroke in the past. He denies any weakness at this point. SKIN: He denies any rashes or ulcers. ENDOCRINE: He reports a history of diabetes mellitus type 2 and secondary hyperparathyroidism. HEMATOLOGICAL/ONCOLOGICAL: He denies any easy bleeding or bruising. All other review of systems is negative. PHYSICAL EXAMINATION: GENERAL: The patient is awake, alert, oriented times three, laying in bed. VITAL SIGNS: Temperature is 96.9 degrees Fahrenheit, blood pressure 123/59, pulse is 80, respiratory rate of 20, saturating 97% on room air. INTAKE AND OUTPUT: Urine output recorded as only 240 mL. HEAD AND NECK EXAM: Extraocular muscles intact. Pupils equally round and reactive to light. Mucous membranes are moist. Neck is supple. There is significantly elevated jugular venous distention (JVD). CARDIOVASCULAR: S1, S2, irregular heart rate. Tunneled hemodialysis catheter was noted. 1+ edema of the bilateral lower extremities was noted. RESPIRATORY: Decreased breath sounds at the bases with mild inspiratory crackles at the bases bilaterally. ABDOMEN: Soft, distended with a moderate amount of ascites and dullness to percussion in the flanks. Right upper quadrant cholecystectomy scar was noted. Old cardiac surgery scars in the epigastrium were noted as well. GENITOURINARY: Bladder is not palpable. No hernia was noted. MUSCULOSKELETAL: No clubbing or cyanosis. Pulses are 2+. 1+ edema of the bilateral lower extremities was noted. CENTRAL NERVOUS SYSTEM: No focal deficit. Power is 5/5 in all extremities. SKIN: No rashes or ulcer. LYMPH NODES: No significant cervical, axillary or inguinal lymphadenopathy. LAB REVIEW: CBC showed a WBC of 7.1, hemoglobin 8.1, platelets are 181. INR is 1.13. BMP showed sodium 137, potassium 4.9, chloride 100, bicarbonate 25, BUN 58, creatinine is 6.8, calcium is 8.3. Pro-BNP is 22,491. TSH is 4.2. Microbiology: Blood culture is pending. IMAGING: Chest x-ray was done, which showed interstitial edema and cardiomegaly. CURRENT INPATIENT MEDICATIONS: Patient is currently on Entresto 24/26 mg one tablet twice a day, Tylenol as needed, aspirin 81 mg daily, bisacodyl as needed, calcitriol 0.25 mcg by mouth daily, Coreg 3.125 mg by mouth twice a day, Plavix 75 mg nightly, vitamin B12 5000 mcg three times a day. I started him on Aranesp 200 mcg IV once a week with dialysis. Colace 100 mg by mouth twice a day. Uloric 80 mg by mouth nightly, folic acid 2 mg by mouth daily, gabapentin 100 mg nightly, insulin Levemir 56 units subcu daily and insulin sliding scale, methotrexate 15 mg by mouth on Wednesdays, midodrine 5 mg by mouth Wednesday, Wednesday, Wednesday, Zofran as needed, pravastatin 80 mg nightly, prednisone 2.5 mg by mouth daily, Requip 1 mg nightly, Senokot as needed, simethicone as needed, thiamine 250 mg by mouth daily, and vitamin D 2000 units by mouth daily. ASSESSMENT: A 62-year-old male with end-stage renal disease, on hemodialysis, systolic congestive heart failure, admitted at this time with decompensated congestive heart failure and fluid overload along with ascites PLAN: 1. End-stage renal disease, on hemodialysis. Patient is significantly volume overloaded. I will try to do his hemodialysis tomorrow. If he tends to be hypotensive during dialysis, I will try to cut down his Entresto dose. Continue midodrine at this point. 2. Acute on chronic decompensated systolic congestive heart failure. The patient has severe coronary artery disease, ischemic cardiomyopathy, severely reduced ejection fraction (EF). Patient would need [id number] hemodialysis and ultrafiltration sessions. I believe his ascites is also secondary to cardiac failure. Continue low sodium diet. No diuretics at this point because the patient is oliguric. Continue home dose of Entresto and Coreg. If blood pressure stays low, then Entresto dose will be decreased. 3. Tense ascites. I have ordered patient's ascitic tap to be done tomorrow. The patient is on aspirin and Plavix. I would not hold his aspirin and Plavix because of extensive history of coronary artery disease. I have also ordered ascitic fluid albumin, total protein, LDH, and glucose, along with cell count and gram stain. 4. Anemia in end-stage renal disease. Patient's hemoglobin is 8.1, which is suboptimal. I would avoid giving him blood at this point because of decompensated congestive heart failure. I am starting the patient on Aranesp with hemodialysis and Venofer 100 mg IV with hemodialysis. If hemoglobin stays 8 or below, then he will be given blood during hemodialysis. 5. Secondary hyperparathyroidism. Continue current dose of calcitriol 0.25 mcg by mouth daily. 6. Diabetes mellitus, type 2, insulin dependent. Continue home dose of insulin sliding scale and insulin Levemir 56 units subcu daily. Thank you for involving me in the care of this patient. I shall be happy to follow the patient along with you tomorrow morning.
[2018-04-12] MEDS: VITAMIN D 1,000 INTERNATIONAL UNITS TABLET PO SCH (05:52)
[2018-04-12] MEDS: THIAMINE 100 MG TAB PO SCH (05:52)
[2018-04-12] MEDS: CALCITRIOL 0.25 MCG CAP (S0169) PO SCH (05:52)
[2018-04-12] MEDS: ENTRESTO 24-26MG TABLET (SACUBITRIL/VALSARTAN) PO SCH ×2 (05:53→21:17)
[2018-04-12] MEDS: FOLIC ACID 1 MG TAB PO SCH (05:53)
[2018-04-12] MEDS: CARVedilol 3.125 MG TAB PO SCH ×2 (05:53→21:00)
[2018-04-12] MEDS: predniSONE 2.5 MG TAB PO SCH (05:53)
[2018-04-12] MEDS: CYANOCOBALAMIN 500 MCG TAB PO SCH ×3 (05:54→21:17)
[2018-04-12] MEDS: PANTOPRAZOLE 40MG TAB (PROTONIX) PO SCH ×2 (05:54→21:17)
[2018-04-12] MEDS: ASPIRIN 81 MG ENTERIC TAB PO SCH (05:54)
[2018-04-12 06:00] VITALS: BP 114/57
[2018-04-12 06:34] LABS: CREATININE FOR GFR 7.23 MG/DL (0.70-1.30); GLOMERULAR FILTRATION RATE 8.3 (>49); PERCENT SATURATION 17.1 % (19.7-50.0); POTASSIUM SERUM 4.7 MEQ/L (3.5-5.1)
[2018-04-12] MEDS: HumaLOG INSULIN (NovoLOG) PER UNIT SC SCH ×4 (07:30→21:00)
[2018-04-12 07:58] LABS: LYMPH # 0.3 10^3/uL (1.5-4.5); LYMPH % 7.2 % (24.0-44.0); MEAN CORPUSCULAR HEMOGLOBIN 29.9 pg (27.0-33.0); MEAN CORPUSCULAR HGB CONC 31.4 g/dl (32.0-36.5); MONO # 0.1 10^3/uL (0.0-0.8); MONO % 2.1 % (0.0-5.0); NEUTROPHILS # 3.4 10^3/uL (1.8-7.7); NEUTROPHILS % 90.4 % (36.0-66.0); PLATELET COUNT, AUTOMATED 141 10^3/uL (150-450); RED BLOOD COUNT 2.21 10^6/uL (4.30-6.10); WHITE BLOOD COUNT 3.8 10^3/uL (4.0-10.0)
[2018-04-12] MEDS ORDERED: IRON SUCROSE 100MG 5ML VIAL (J1756 PER 1MG) IV SCH (08:00)
[2018-04-12 08:20] LABS: HEMOGLOBIN 6.6 g/dl (13.5-17.5)
[2018-04-12 10:26] LABS: FREE T4 1.03 NG/DL (0.76-1.46); THYROID STIMULATING HORMONE 2.47 uIU/ML (0.358-3.740)
[2018-04-12] MEDS ORDERED: HEPARIN 1,000 UNITS/ML 10ML VIAL (FOR RADIOLOGY& DIALYSIS ONLY) XX ONE (12:00)
[2018-04-12 14:00] VITALS: BP 104/59
--- NOTE | 2018-04-12 14:23 | IPNPDOC ---
Text Note Date of Service The patient was seen on 04/12/18. NOTE Subjective: Patient is a 62-year-old male with a PMHx of ESRD on HD (TTS), CAD s/p CABG / Stents (Hx of MO), Systolic CHF, s/p PM, HTN, DLP, COPD, who presented to the ER with complaints of SOB. In the emergency room, patient was found to have fluid overload and was admitted to hospitalist service for further evaluation and treatment. Patient was seen and examined at the bedside. Currently receiving HD. Doesn't report any significant improvement in SOB. Denies any cough, CP or palpitations. Denies any N/V, abdominal pain, C/D. Objective: Vitals (See below) General: Lying in bed, no acute distress, comfortable, AAOx3 HEENT: NC, AT CVS: RRR, +S1S2 Lungs: Fair air entry b/l, mild crackles, no wheezing / rhonchi Abdomen: Soft, Distension, NT Extremities: 2+ edema bilaterally, - Calf tenderness Assessment and plan: Fluid overload - likely 2/2 acute decompensated systolic CHF / ESRD on HD (TTS) - Presented to the ER with complaints of SOB - Physical with findings consistent with fluid overload - BNP significantly elevated - CXR 04/11: 1. Interstitial edema. 2. Cardiomegaly. - Will get HD today; will possibly need additional HD sessions - however; will continue to monitor - Nephrology (Dr. Alejo) on consultation; appreciate their input Normocytic anemia - Possibly 2/2 ESRD, possibly 2/2 GI source - Patient has noted a history of BRBPR ~2 weeks ago; has since resolved - Hg has trended down from admission without IV fluids / intervention - Denies any acute blood loss - Will transfuse 2 units PRBC - Will check stool for occult blood - f/u post-transfusion CBC Ascites - Will be going for IR guided paracentesis on 04/13/18 - Fluid will be sent for analysis - c/w HD CAD s/p CABG / Stents (Hx of MO) - c/w ASA and Plavix Systolic CHF s/p PM HTN - c/w Sacubitril / Valsartan, Carvedilol, - c/w Midodrine during HD sessions IDDM2 with Hypoglycemia - c/w Levemir and ISS - Will reduce dose of Levemir DLP - c/w Pravastatin COPD - No evidence of exacerbation - c/w inhaled therapy as ordered Neuropathy - c/w Gabapentin Gout - c/w Febuxostat RLS - c/w Ropinirole RA - c/w Methotrexate / Prednisone GERD - c/w Protonix DVT prophylaxis - c/w SCDs VS,Fishbone, I+O VS, Fishbone, I+O Laboratory Tests 04/12/18 05:10 Red Blood Count 2.21 L, Mean Corpuscular Volume 95.0, Mean Corpuscular Hemoglobin 29.9, Mean Corpuscular Hemoglobin Concent 31.4 L, Red Cell Distribution Width 16.4 H, Neutrophils (%) (Auto) 90.4 H, Lymphocytes (%) (Auto) 7.2 L, Monocytes (%) (Auto) 2.1, Eosinophils (%) (Auto) 0.0, Basophils (%) ( Auto) 0.0, Neutrophils # (Auto) 3.4, Lymphocytes # (Auto) 0.3 L, Monocytes # (Auto) 0.1, Eosinophils # (Auto) 0.0, Basophils # (Auto) 0.0 04/12/18 05:14 Calcium Level 8.0 L Vital Signs Date Time Temp Pulse Resp B/P (MAP) Pulse Ox O2 Delivery O2 Flow Rate FiO2 04/12/18 06:00 97.8 68 18 114/57 (76) 99 Room Air 04/11/18 21:30 3.0 I&O- Last 24 Hours up to 6 AM 04/12/18 06:00 Intake Total 690 ml Output Total 440 ml Balance 250 ml MELISSA MCDANIEL MD Apr 12, 2018 14:23
[2018-04-12 14:36] LABS: TOTAL T3 58.2 NG/DL (60.0-181.0)
[2018-04-12 14:55] VITALS: BP 111/59
[2018-04-12 15:40] VITALS: BP 115/56
[2018-04-12 16:40] VITALS: BP 110/55
--- NOTE | 2018-04-12 19:24 | ECGEPIP ---
Stationary ECG Study [facility] - ED Test Date: 2018-04-11 Pat Name: NICHOLAS WAKEFIELD Department: Room: [place] [address] Gender: M Placement Assistant: CARIDAD : [id number] Requested By: Shannon Camarillo Order Number: [id number] Reading MD: Isabel Irving Measurements Intervals [place] Rate: 73 P: 60 MN: 152 QRS: -25 QRSD: 102 T: 162 QT: 394 QTc: 435 Interpretive Statements SINUS RHYTHM LEFT VENTRICULAR HYPERTROPHY AND ST-T CHANGE INFERIOR MYOCARDIAL INFARCTION, PROBABLY OLD POOR R WAVE PROGRESSION CW 03/05/18 RATE SAME SIMILAR MORPHOLOGY Electronically Signed On 04-12-2018 19:24:08 EST by Isabel Irving
[2018-04-12 19:41] LABS: BASO % 0.4 % (0.0-1.0); HEMATOCRIT 28.3 % (42.0-52.0); LYMPH # 0.3 10^3/uL (1.5-4.5); LYMPH % 9.5 % (24.0-44.0); MEAN CORPUSCULAR HEMOGLOBIN 29.5 pg (27.0-33.0); MEAN CORPUSCULAR HGB CONC 31.8 g/dl (32.0-36.5); MEAN CORPUSCULAR VOLUME 92.8 fl (80.0-96.0); MONO # 0.1 10^3/uL (0.0-0.8); MONO % 1.9 % (0.0-5.0); NEUTROPHILS # 2.3 10^3/uL (1.8-7.7); NEUTROPHILS % 87.4 % (36.0-66.0); PLATELET COUNT, AUTOMATED 115 10^3/uL (150-450); RED BLOOD COUNT 3.05 10^6/uL (4.30-6.10); WHITE BLOOD COUNT 2.6 10^3/uL (4.0-10.0)
[2018-04-12] MEDS ORDERED: LEVEMIR (INSULIN DETEMIR) 1 UNITS/0.01ML SC SCH (21:00)
[2018-04-12] MEDS: FEBUXOSTAT 40 MG TABLET (ULORIC) PO SCH (21:16)
[2018-04-12] MEDS: CLOPIDOGREL 75 MG TAB PO SCH (21:17)
[2018-04-12] MEDS: rOPINIRole 1MG TAB PO SCH (21:17)
[2018-04-12] MEDS: PRAVASTATIN 20 MG TAB PO SCH (21:17)
[2018-04-12] MEDS: GABAPENTIN 100 MG CAP PO SCH (21:17)
[2018-04-12 22:00] VITALS: BP 102/54
[2018-04-13 05:39] LABS: BASO % 0.5 % (0.0-1.0); HEMATOCRIT 28.4 % (42.0-52.0); LYMPH # 0.3 10^3/uL (1.5-4.5); LYMPH % 11.7 % (24.0-44.0); MEAN CORPUSCULAR HEMOGLOBIN 29.5 pg (27.0-33.0); MEAN CORPUSCULAR HGB CONC 31.7 g/dl (32.0-36.5); MEAN CORPUSCULAR VOLUME 93.1 fl (80.0-96.0); MONO # 0.1 10^3/uL (0.0-0.8); MONO % 2.8 % (0.0-5.0); NEUTROPHILS # 1.8 10^3/uL (1.8-7.7); NEUTROPHILS % 84.1 % (36.0-66.0); PLATELET COUNT, AUTOMATED 106 10^3/uL (150-450); RED BLOOD COUNT 3.05 10^6/uL (4.30-6.10); WHITE BLOOD COUNT 2.1 10^3/uL (4.0-10.0)
[2018-04-13 06:16] LABS: ALBUMIN 2.4 GM/DL (3.2-5.2); BILIRUBIN,TOTAL 0.6 MG/DL (0.2-1.0); CALCIUM LEVEL 8.2 MG/DL (8.8-10.2); CREATININE FOR GFR 4.64 MG/DL (0.70-1.30); GLOMERULAR FILTRATION RATE 13.8 (>49); MAGNESIUM LEVEL 1.5 MG/DL (1.8-2.4); TOTAL PROTEIN 6.5 GM/DL (6.4-8.2)
[2018-04-13] MEDS: HumaLOG INSULIN (NovoLOG) PER UNIT SC SCH ×4 (07:30→21:26)
[2018-04-13] MEDS: ASPIRIN 81 MG ENTERIC TAB PO SCH (07:32)
[2018-04-13] MEDS ORDERED: MAG SULF 1GM/100ML (MAG RUN) 1 GM in APPROPRIATE DILUENT 1 EA IV ONE (08:00)
[2018-04-13] MEDS ORDERED: METHOTREXATE 2.5 MG TAB (J8610 PER 2.5MG) PO SCH (09:00)
[2018-04-13] MEDS: VITAMIN D 1,000 INTERNATIONAL UNITS TABLET PO SCH (09:57)
[2018-04-13] MEDS: predniSONE 2.5 MG TAB PO SCH (09:57)
[2018-04-13] MEDS: CARVedilol 3.125 MG TAB PO SCH ×2 (09:57→21:00)
[2018-04-13] MEDS: CYANOCOBALAMIN 500 MCG TAB PO SCH ×3 (09:57→21:23)
[2018-04-13] MEDS: CALCITRIOL 0.25 MCG CAP (S0169) PO SCH (09:57)
[2018-04-13] MEDS: FOLIC ACID 1 MG TAB PO SCH (09:58)
[2018-04-13] MEDS: THIAMINE 100 MG TAB PO SCH (09:58)
[2018-04-13] MEDS: PANTOPRAZOLE 40MG TAB (PROTONIX) PO SCH ×2 (09:58→21:24)
[2018-04-13] MEDS: ENTRESTO 24-26MG TABLET (SACUBITRIL/VALSARTAN) PO SCH ×2 (09:59→21:23)
[2018-04-13] MEDS: MIDODRINE 5 MG TAB PO SCH (09:59)
--- NOTE | 2018-04-13 10:26 | IPN ---
DATE: 04/12/2018 SUBJECTIVE: The patient was seen and examined at the bedside today morning getting hemodialysis procedure. He was tolerating the hemodialysis procedure well. There is a drop in his hemoglobin today from 8.1 to 6.6. He is also going to get packed red blood cell (PRBC) transfusion with hemodialysis. His paracentesis has been postponed because of dialysis and drop in his hemoglobin. OBJECTIVE: Vital Signs: Temperature 97.5 degrees Fahrenheit. Blood pressure 104/59. Pulse 76. Respiratory rate 19. Saturating 100% on room air. Intake and Output: Urine output recorded as 400 mL since overnight. Weight on the bed scale is not available. PHYSICAL EXAMINATION: General: Patient is awake, alert and oriented times three. Morbidly obese, laying in the bed, getting hemodialysis done. Head and Neck Exam: Extraocular muscles intact. Pupils equally round and reactive to light. Mucous membranes are moist. Neck is supple. Moderately elevated jugular venous distention (JVD). He has a right internal jugular (IJ) tunneled hemodialysis catheter. Cardiovascular: S1, S2. Irregular rate. 1+ edema of the bilateral lower extremities. Respiratory: Decreased breath sounds at the bases with mild respiratory crackles bilaterally at the bases. Abdomen soft. Distended. Large volume ascites. Dullness to percussion in the flanks. Right upper quadrant old cholecystectomy scar. Musculoskeletal: No clubbing or cyanosis. Pulses 2+. 1+ edema of the extremities. Central Nervous System: No focal deficit. Power is 5/5 in bilateral upper extremities. LAB REVIEW: CBC showed a WBC of 3.8, hemoglobin 6.6, platelets 141. BMP showed sodium 139, potassium 4.7, chloride 101, bicarbonate 26, BUN 72, creatinine 7.2. Transferrin saturation is 17.1, ferritin is 122. MICROBIOLOGY: Blood cultures are negative. Stool occult blood is positive. CURRENT INPATIENT MEDICATIONS: The patient's medications were all reviewed by me. His Levemir dose has been changed to 25 units subcutaneous daily. I have started him on Venofer with dialysis. He has also started on Aranesp with hemodialysis. No other change in the medications today as compared with yesterday. ASSESSMENT AND PLAN: 1. End stage renal disease on hemodialysis. Patient is being dialyzed today. He is tolerating the hemodialysis procedure well. Three liters of fluid will be removed as tolerated by his blood pressure. 2. Acute decompensated systolic congestive heart failure. The patient is significantly volume overloaded. He has large volume ascites as well. Three liters of fluid will be removed today. I will try to do another session of ultrafiltration tomorrow. Continue home dose of Coreg and Entresto. 3. Large volume ascites. Possible Cardiac ascites: The patient's hemoglobin dropped today. He is also being dialyzed so his paracentesis has been postponed for tomorrow. 4. Drop in hemoglobin and positive fecal occult blood test. The patient is currently on aspirin and Plavix because of extensive coronary artery disease. He continues to be on Protonix. The patient got two units of PRBC transfusion. Hemoglobin has improved. Fecal occult blood test is positive. If his hemoglobin drops again, then patient will need further GI workup for occult GI bleeding. 5. Diabetes mellitus type 2. Continue insulin sliding scale and Levemir. Dose has been adjusted by the primary team. 6. Coronary artery disease. History of 29 stents, myocardial infarction (SD) and status post coronary artery bypass grafting times two. The patient continues to be on aspirin and Plavix. He is also on statins. Congestive heart failure. Management is as mentioned above. MTDD
--- NOTE | 2018-04-13 13:39 | IPNPDOC ---
Text Note Date of Service The patient was seen on 04/13/18. NOTE Subjective: Patient is a 62-year-old male with a PMHx of ESRD on HD (TTS), CAD s/p CABG / Stents (Hx of [place]), Systolic CHF, s/p PM, HTN, DLP, COPD, who presented to the ER with complaints of SOB. In the emergency room, patient was found to have fluid overload and was admitted to hospitalist service for further evaluation and treatment. Patient was seen and examined at the bedside. Patient has no complaints of chest pain or palpitations. He notes that his shortness of breath is still persistent. A more pronounced the bowl when he ambulates to the bathroom. He denies any nausea, vomiting, abdominal pain, constipation or diarrhea. Objective: Vitals (See below) General: Lying in bed, no acute distress, comfortable, AAOx3 HEENT: NC, AT CVS: RRR, +S1S2 Lungs: Fair air entry b/l, it does not appear to be any crackles, wheezing or rhonchi Abdomen: Soft, Distension, non-tender Extremities: 1+ edema is noted b/l, - Calf tenderness Assessment and plan: Fluid overload - likely 2/2 acute decompensated systolic CHF / ESRD on HD (TTS) - Presented to the ER with complaints of SOB - Physical with findings consistent with fluid overload - BNP significantly elevated - CXR 04/11: 1. Interstitial edema. 2. Cardiomegaly. - s/p HD yesterday - removal of 3000 cc; will likely need additional HD - Nephrology (Dr. Alejo) on consultation; appreciate their input Normocytic anemia - Possibly 2/2 ESRD, possibly 2/2 GI source - Patient has noted a history of BRBPR ~2 weeks ago; has since resolved - Hg has trended down from admission without IV fluids / intervention - Denies any acute blood loss - Will continue to follow H&H - s/p 2 units PRBC - Occult blood positive - f/u post-transfusion CBC Ascites - Will be going for IR guided paracentesis today - Fluid will be sent for analysis - c/w HD CAD s/p CABG / Stents (Hx of [place]) - c/w ASA and Plavix s/p PM HTN - c/w Sacubitril / Valsartan, Carvedilol, - c/w Midodrine during HD sessions IDDM2 with Hypoglycemia - c/w Levemir and ISS - Will again adjust Levemir dose DLP - c/w Pravastatin COPD - No evidence of exacerbation - c/w inhaled therapy as ordered Neuropathy - c/w Gabapentin Gout - c/w Febuxostat RLS - c/w Ropinirole - c/w Methotrexate / Prednisone GERD - c/w Protonix DVT prophylaxis - c/w SCDs Disposition: - Awaiting clinical improving VS,Natalia, I+O VS, Natalia, I+O Laboratory Tests 04/12/18 19:23 Red Blood Count 3.05 L, Mean Corpuscular Volume 92.8, Mean Corpuscular Hemoglobin 29.5, Mean Corpuscular Hemoglobin Concent 31.8 L, Red Cell Distribution Width 17.3 H, Neutrophils (%) (Auto) 87.4 H, Lymphocytes (%) (Auto) 9.5 L, Monocytes (%) (Auto) 1.9, Eosinophils (%) (Auto) 0.0, Basophils (%) (Auto) 0.4, Neutrophils # (Auto) 2.3, Lymphocytes # (Auto) 0.3 L, Monocytes # (Auto) 0.1, Eosinophils # (Auto) 0.0, Basophils # (Auto) 0.0 04/13/18 05:28 Red Blood Count 3.05 L, Mean Corpuscular Volume 93.1, Mean Corpuscular Hemoglobin 29.5, Mean Corpuscular Hemoglobin Concent 31.7 L, Red Cell Distribution Width 17.5 H, Neutrophils (%) (Auto) 84.1 H, Lymphocytes (%) (Auto) 11.7 L, Monocytes (%) (Auto) 2.8, Eosinophils (%) (Auto) 0.0, Basophils (%) (Auto) 0.5, Neutrophils # (Auto) 1.8, Lymphocytes # (Auto) 0.3 L, Monocytes # (Auto) 0.1, Eosinophils # (Auto) 0.0, Basophils # (Auto) 0.0, Calcium Level 8.2 L, Aspartate Amino Transf (AST/SGOT) 15, Alanine Aminotransferase (ALT/SGPT) 19, Alkaline Phosphatase 74, Total Bilirubin 0.6, Total Protein 6.5, Albumin 2.4 L Vital Signs Date Time Temp Pulse Resp B/P (MAP) Pulse Ox O2 Delivery O2 Flow Rate FiO2 04/13/18 09:57 76 135/64 04/13/18 06:00 97.5 18 96 NIPPV (BIPAP/CPAP) 04/11/18 21:30 3.0 I&O- Last 24 Hours up to 6 AM 04/13/18 06:00 Intake Total 2121 ml Output Total 3275 ml Balance -1154 ml MELISSA MCDANIEL MD Apr 13, 2018 13:39
[2018-04-13 14:00] VITALS: BP 132/69
--- NOTE | 2018-04-13 14:12 | REP ---
Ascites survey: Four-quadrant study. History: Ascites. The patient referred for paracentesis. Findings: Pre-procedure scanning fails to show any evidence of ascites in the four-quadrant abdominal ascites survey. Accordingly, the anticipated paracentesis was not carried out. Impression: No ascites seen. Electronically Signed by Shaggy Lynn MD 04/13/2018 07:40 P
[2018-04-13] MEDS ORDERED: LEVEMIR (INSULIN DETEMIR) 1 UNITS/0.01ML SC SCH (21:00)
[2018-04-13] MEDS: CLOPIDOGREL 75 MG TAB PO SCH (21:23)
[2018-04-13] MEDS: FEBUXOSTAT 40 MG TABLET (ULORIC) PO SCH (21:23)
[2018-04-13] MEDS: PRAVASTATIN 20 MG TAB PO SCH (21:23)
[2018-04-13] MEDS: GABAPENTIN 100 MG CAP PO SCH (21:24)
[2018-04-13] MEDS: rOPINIRole 1MG TAB PO SCH (21:24)
[2018-04-13] MEDS: LEVEMIR (INSULIN DETEMIR) 1 UNITS/0.01ML SC SCH (21:25)
[2018-04-13 22:00] VITALS: BP 100/54
[2018-04-14] MEDS: CARVedilol 3.125 MG TAB PO SCH ×2 (05:52→22:04)
[2018-04-14] MEDS: VITAMIN D 1,000 INTERNATIONAL UNITS TABLET PO SCH (05:53)
[2018-04-14] MEDS: CALCITRIOL 0.25 MCG CAP (S0169) PO SCH (05:53)
[2018-04-14] MEDS: ENTRESTO 24-26MG TABLET (SACUBITRIL/VALSARTAN) PO SCH ×2 (05:53→22:04)
[2018-04-14] MEDS: THIAMINE 100 MG TAB PO SCH (05:54)
[2018-04-14] MEDS: predniSONE 2.5 MG TAB PO SCH (05:55)
[2018-04-14] MEDS: ASPIRIN 81 MG ENTERIC TAB PO SCH (05:55)
[2018-04-14] MEDS: PANTOPRAZOLE 40MG TAB (PROTONIX) PO SCH ×2 (05:55→22:04)
[2018-04-14] MEDS: FOLIC ACID 1 MG TAB PO SCH (05:55)
[2018-04-14] MEDS: CYANOCOBALAMIN 500 MCG TAB PO SCH ×3 (05:55→22:03)
[2018-04-14 06:00] VITALS: BP 111/58
[2018-04-14 06:34] LABS: HEMATOCRIT 25.5 % (42.0-52.0); LYMPH # 0.3 10^3/uL (1.5-4.5); LYMPH % 9.4 % (24.0-44.0); MEAN CORPUSCULAR HEMOGLOBIN 29.5 pg (27.0-33.0); MEAN CORPUSCULAR HGB CONC 31.4 g/dl (32.0-36.5); MEAN CORPUSCULAR VOLUME 94.1 fl (80.0-96.0); MONO # 0.1 10^3/uL (0.0-0.8); MONO % 2.3 % (0.0-5.0); NEUTROPHILS # 2.6 10^3/uL (1.8-7.7); RED BLOOD COUNT 2.71 10^6/uL (4.30-6.10)
[2018-04-14 06:59] LABS: PLATELET COUNT, AUTOMATED 85 10^3/uL (150-450)
[2018-04-14 07:03] LABS: ALBUMIN 2.2 GM/DL (3.2-5.2); BILIRUBIN,TOTAL 0.4 MG/DL (0.2-1.0); CREATININE FOR GFR 5.74 MG/DL (0.70-1.30); GLOMERULAR FILTRATION RATE 10.8 (>49); MAGNESIUM LEVEL 1.9 MG/DL (1.8-2.4); POTASSIUM SERUM 4.2 MEQ/L (3.5-5.1)
[2018-04-14] MEDS: HumaLOG INSULIN (NovoLOG) PER UNIT SC SCH ×4 (08:07→22:06)
[2018-04-14] MEDS ORDERED: ISOVUE-370 76% 100ML VIAL (Q9967) As Ordered ONE (09:24)
--- NOTE | 2018-04-14 10:07 | IPN ---
DATE OF SERVICE: 04/13/2018 SUBJECTIVE: The patient was seen and examined at the bedside today morning. He just came back from ultrasound. He had gone there for paracentesis, but he was told that he does not have any ascites. All the fluid is in abdominal wall. The patient got dialyzed yesterday. 3 liters of ultrafiltration was done, which he tolerated well. He is going for another session of ultrafiltration today in the afternoon. He reports that his shortness of breath is better today as compared with yesterday. OBJECTIVE: Vital signs: Temperature is 97.5 degrees Fahrenheit, blood pressure 135/64, pulse is 76, respiratory rate of 18, saturating 96%. Intake and output: Urine output recorded is 275 mL yesterday. Weight in the bed scale is not available. PHYSICAL EXAMINATION: General: The patient is awake, alert, oriented times three. Sitting up in the bed. In no apparent distress. Head and neck examination: Extraocular muscles intact. Pupils equally round and reactive to light. Mucous membranes are moist. Neck is supple. There is moderately elevated jugular venous distention (JVD). He has a right internal jugular (IJ) tunneled hemodialysis catheter. Cardiovascular: S1, S2. Irregular heart rate. 1+ edema of the bilateral lower extremities. Respiratory: Decreased breath sounds at the bases with a mild amount of inspiratory crackles bilaterally at the bases. Abdomen is soft. Distended. Positive abdominal wall edema. Right upper quadrant old cholecystectomy scar. Musculoskeletal: No clubbing or cyanosis. Pulses are 2+. 1+ edema of the extremities. Central nervous system (INSURANCE CUSTOMER SERVICE SPECIALIST): No focal deficit. Power is 5/5 in all extremities. LABORATORY REVIEW: Complete blood count (CBC) showed a WBC of 2.1, hemoglobin is 9.1, platelets are 106. Basic metabolic profile (BMP) showed sodium 137, potassium is 4, chloride 99, bicarbonate is 30, BUN is 38, creatinine is 4.6, calcium 8.2, magnesium is 1.5, albumin 2.4. IMAGING: An abdominal ultrasound was done for a paracentesis, but no ascites was noted. CURRENT INPATIENT MEDICATIONS: The patient's medications were all reviewed by me. There is no change in the medications today as compared with yesterday. ASSESSMENT AND PLAN: 1. End-stage renal disease, on hemodialysis. The patient was dialyzed yesterday. He still has significant fluid overload. He will go for ultrafiltration today, and I will try to remove 2.5 to 3 kg of fluid as tolerated by his blood pressure. 2. Acute decompensated systolic congestive heart failure. The patient has extensive history of coronary artery disease. He continues to be on Coreg and Entresto. [id number] hemodialysis and ultrafiltration sessions are being done. 3. Abdominal wall edema. The patient was sent today for possible ascites, but ultrasound did not show any ascites. He largely has abdominal wall edema secondary to diastolic congestive heart failure (CHF), and it should improve with ultrafiltration and hemodialysis sessions. 4. Anemia secondary to end-stage renal disease. Hemoglobin is 9, which is optimal. He was given 2 units of packed red blood cells (PRBC) transfusion. 5. Coronary artery disease and ischemic cardiomyopathy. The patient has a total of 29 stents and coronary artery bypass grafting times two. Continue aspirin and Plavix and statins.
--- NOTE | 2018-04-14 10:21 | REP ---
MAXILLOFACIAL CT WITH CONTRAST: HISTORY: Left jaw pain. CONTRAST: Isovue 370, 75 mL. Minimal mucosal thickening is present in the ethmoid and maxillary sinuses. The remaining sinuses are clear. Mucosal thickening involves the ostiomeatal units. The middle and inferior nasal turbinates are partially paradoxical. There is kameron bullosa of the left middle nasal turbinate. There is minimal deviation of the nasal septum to the right. A spur is present arising from the right side of the nasal septum. The spur abuts the right inferior nasal turbinate. The cribriform plate, medial armstrong of the orbits and optic canals are intact. The carotid canals form a segment of the posterolateral armstrong of the sphenoid sinus. A calcification is present in the inferior left tonsil. This is secondary to previous inflammatory disease. The naso-, bj- and hypopharynx are otherwise normal in appearance. The salivary and thyroid glands are normal in size and density. Small lymph nodes less than 1 cm in size are present in the internal jugular chains and submandibular areas. IMPRESSION: Sinus mucosal thickening as described above. Electronically Signed by Norman Tao MD 04/14/2018 10:26 A
[2018-04-14] MEDS ORDERED: HEPARIN 1,000 UNITS/ML 10ML VIAL (FOR RADIOLOGY& DIALYSIS ONLY) XX ONE (10:45)
--- NOTE | 2018-04-14 11:38 | IPNPDOC ---
Text Note Date of Service The patient was seen on 04/14/18. NOTE Subjective: Patient is a 62-year-old male with a PMHx of ESRD on HD (TTS), CAD s/p CABG / Stents (Hx of [place]), Systolic CHF, s/p PM, HTN, DLP, COPD, who presented to the ER with complaints of SOB. In the emergency room, patient was found to have fluid overload and was admitted to hospitalist service for further evaluation and treatment. Patient was seen and examined at the bedside. Patient still notes shortness of breath with exertion. Denies chest pain or palpitations. Has not been experiencing a cough. Denies any abdominal pain, nausea or vomiting. Denies any bright red bleeding per rectum. Objective: Vitals (See below) General: Lying in bed, no acute distress, comfortable, AAOx3 HEENT: NC, AT CVS: RRR, +S1S2 Lungs: Fair air entry b/l, auscultation does not reveal any evidence of wheezing or rhonchi, small amount of rales can be appreciated bilaterally bases Abdomen: Soft, abdomen does still appear distended. However, there is no significant tenderness Extremities: 1+ edema is noted b/l, - Calf tenderness Assessment and plan: Fluid overload - likely 2/2 acute decompensated systolic CHF / ESRD on HD (TTS) - Presented to the ER with complaints of SOB; reports exertional shortness of breath - Physical with lower extremity swelling still persistent - BNP significantly elevated - CXR 04/11: 1. Interstitial edema. 2. Cardiomegaly. - Will c/w HD - Nephrology (Dr. Alejo) on consultation; appreciate their input Normocytic anemia - likely 2/2 GI source, possibly 2/2 ESRD, - Patient has noted a history of BRBPR ~2 weeks ago; has since resolved - Hg has trended down from admission without IV fluids / intervention - Denies any acute blood loss - Will continue to follow H&H - s/p 2 units PRBC; Will be transfused 1 additional PRBC today - Occult blood positive - Plan for EGD / Colonoscopy tomorrow at ~1PM - Dr. Chow on consult Abdominal distension - suspected to be 2/2 Ascites - US abdomen 04/13: No evidence of fluid - c/w HD CAD s/p CABG / Stents (Hx of [place]) - c/w ASA and Plavix s/p PM HTN - c/w Sacubitril / Valsartan, Carvedilol, - c/w Midodrine during HD sessions IDDM2 with Hypoglycemia - c/w Levemir and ISS DLP - c/w Pravastatin COPD - No evidence of exacerbation - c/w inhaled therapy as ordered Neuropathy - c/w Gabapentin Gout - c/w Febuxostat RLS - c/w Ropinirole RA - c/w Methotrexate / Prednisone GERD - c/w Protonix DVT prophylaxis - c/w SCDs Disposition: - Awaiting clinical improving - EGD / Colonoscopy tomorrow VS,Fishbone, I+O VS, Fishbone, I+O Laboratory Tests 04/14/18 05:26 Red Blood Count 2.71 L, Mean Corpuscular Volume 94.1, Mean Corpuscular H emoglobin 29.5, Mean Corpuscular Hemoglobin Concent 31.4 L, Red Cell Distribution Width 17.1 H, Neutrophils (%) (Auto) 88.0 H, Lymphocytes (%) (Auto) 9.4 L, Monocytes (%) (Auto) 2.3, Eosinophils (%) (Auto) 0.0, Basophils (%) (Auto) 0.0, Neutrophils # (Auto) 2.6, Lymphocytes # (Auto) 0.3 L, Monocytes # (Auto) 0.1, Eosinophils # (Auto) 0.0, Basophils # (Auto) 0.0, Calcium Level 8.0 L, Aspartate Amino Transf (AST/SGOT) 14, Alanine Aminotransferase (ALT/SGPT) 16, Alkaline Phosphatase 74, Total Bilirubin 0.4, Total Protein 6.0 L, Albumin 2.2 L Vital Signs Date Time Temp Pulse Resp B/P (MAP) Pulse Ox O2 Delivery O2 Flow Rate FiO2 04/14/18 06:00 97.7 75 20 111/58 (75) 97 04/13/18 22:00 Room Air 04/11/18 21:30 3.0 I&O- Last 24 Hours up to 6 AM 04/14/18 06:00 Intake Total 1651 ml Output Total 2800 ml Balance -1149 ml MELISSA MCDANIEL MD Apr 14, 2018 11:38
[2018-04-14 14:00] VITALS: BP 116/57
[2018-04-14] MEDS ORDERED: GOLYTELY SOLN 4000 ML BTL PO SCH (16:00)
[2018-04-14] MEDS ORDERED: MIRALAX *UNIT DOSE* 17GM PACKET PO ONE (17:45)
--- NOTE | 2018-04-14 18:15 | CR.PDOC ---
General Date of Consultation: Apr 14, 2018 Referring Provider: CURRY ARCHIBALD MD Attending Physician: A Consultation Primary physician/ hospitalist: Dr. Curry Archibald. Reason for consult: Drop in Hemoglobin and fecal occult blood. HPI: 62 year old male with HTN, DM type 2, HLD, CAD s/p CABG x 2, PCI (last in Jan [address] [facility], on ASA and plavix), CHF with decreased EF, was recently hospitalized in [facility] for chest pain, Had urgent cardiac cath, no obstruction, progressively worsening renal function and start on dialysis since Feb 2018, ( currently HD access though right perma cath), was admitted from renal clinic for progressive shortness of breath despite being on dialysis. Pateint was also noted with drop in Hemoglobin and hematocrit for which he received 3 unit PRBC transfusion ( 2 on 04/12/2018 and 1 today 04/14/2018). GI was consulted for the same. Patient reports having chronic constipation, abdominal fullness, which is worsening recently and hemorrhoids with intermittent moderate to large bleeding ( last bleeding episode 1 week ago). Patient reports for his constipation he takes multiple medications PRN but still having to strain to have bowel movements. Patient denies any profuse rectal bleeding or black colored diarrhea. Patient has some nausea but no vomiting. Patient also taking pantoprazole at home. Pertinent negative GI symptoms: Patient denies nausea, vomiting, diarrhea, loss of appetite, early satiety or unintentional weight loss. No history of hematemesis, melena. Review of Systems: GI: as stated above CVS: chest pain in past, no leg swelling. RS: Has Shortness of breath, No Wheezing, no cough TRANSCRIPTION COORDINATOR: No dizziness, No motor weakness, No sensory problems Hematology: No bruising, No gum bleeding, Musculoskeletal: No joint pain, ambulating well. Skin: No rash : Patient is anuric ENT: No ear discharge/ pain, No dysphagia. Eyes: No photophobia. Home medications: reviewed. Antithrombotic agents -aspirin and Plavix Medical h/o: As above. Surgical h/o: None on abdomen. Social h/o: Alcohol-denies, tobacco-prior smoker, IVDA/ drugs-denies. Family h/o of GI cancers - None Prior Endoscopies: --- EGD -showed 5 years ago when he had CABG and upper GI bleeding. in [facility] --- Colonoscopy - None but patient had CT colography 2-3 years ago Done out side -- normal. Prior GI evaluation: None in [facility]. Exam: Vitals: reviewed General: Alert and oriented x 3, Mild distress; HEENT: NO pallor, no icterus. Normal oropharynx, NO cervical lymph nodes. Chest: symmetric with bilateral clear air entry, CVS: S1, S2 heard, normal, no murmurs . Abdomen: non-distended, Moderate obese, epigastric laparoscopic scars, soft, non-tender, no palpable masses, normal bowel sounds heard. Rectal exam: Patient refused Extremities: no pedal edema, pulses palpable. TRANSCRIPTION COORDINATOR: no focal motor or sensory deficits. Moves all extremities Skin: no rash. Labs: reviewed. Imaging tests: reviewed.. US abdomen for paracentesis-- no ascites. Pertienent positives -- Noted cabrera-cytopenia ( worsening from before). Impression: - Acute decrease in Hemoglobin with occult blood in stools in ESRD patient with fluid over load -- DDx -- Likely multifactorial -- Anemia of kidney disease vs Chronic GI blood loss vs Medication related bone marrow suppression ( note that patient had pancytopenia and on methotrexate) vs Hemolysis - GI blood loss -- based on occult blood positive but could be related to hemorrhoidal bleeding vs anal fissure vs gastritis. NO overt active GI bleeding. - Chronic constipation -- prior CT colography - normal as per patient. -- Likely functional constipation. Recommendations: - Patient educated about the test results, possible differential diagnoses and All questions answered. - Continue Pantoprazole twice daily for now-- to be taken director of early childhood education and at bedtime. - For anemia - please obtain hemolytic work up, Peripheral smear, Erythropoietin level, iron studies. - If worsening pancytopenia, please consider Hematology consult. - At this time due to patient recent history of NM and PCI and fluid over load status and Shortness of breath, patient will be high risk for anesthesia complications. Discusssed the EGD and Colonoscopy procedure, indications, risks (bleeding, perforation, infection, hypotension, respiratory depression, allergy, need for endotracheal intubation, surgery, colostomy, cardiac arrest, even ), benefits, limitations (e.g., missing a lesion), and all other alternatives (including no intervention) were explained to the patient who understood and refused the procedures at this time. - If there concern for ongoing blood loss please consider Tagged PRBC bleeding scan to further evaluate. - For chronic constipation -- please give Benefiber/ Colace twice daily, senna at bedtime and miralax 1-2 times daily. To hold off linzess for now. - Upon discharge patient to follow up with his primary GI. - Recall GI if any change in status. Plan of care discussed with patient and primary team. Patient verbalized understanding and agreed with the plan. Vital Signs/I&O Vital Signs Date Time Temp Pulse Resp B/P (MAP) Pulse Ox O2 Delivery O2 Flow Rate FiO2 04/14/18 14:00 97.9 72 20 116/57 (76) 99 Room Air 04/11/18 21:30 3.0 I&O- Last 24 Hours up to 6 AM 04/14/18 06:00 Intake Total 1651 ml Output Total 2800 ml Balance -1149 ml Laboratory Data Labs 24H Laboratory Tests 2 04/14/18 05:26: Immature Granulocyte % (Auto) 0.3, White Blood Count 3.0L, Red Blood Count 2.71L, Hemoglobin 8.0L, Hematocrit 25.5L, Mean Corpuscular Volume 94.1, Mean Co rpuscular Hemoglobin 29.5, Mean Corpuscular Hemoglobin Concent 31.4L, Red Cell Distribution Width 17.1H, Platelet Count 85L, Neutrophils (%) (Auto) 88.0H, Lymphocytes (%) (Auto) 9.4L, Monocytes (%) (Auto) 2.3, Eosinophils (%) (Auto) 0.0, Basophils (%) (Auto) 0.0, Neutrophils # (Auto) 2.6, Lymphocytes # (Auto) 0.3L, Monocytes # (Auto) 0.1, Eosinophils # (Auto) 0.0, Basophils # (Auto) 0.0, Nucleated Red Blood Cells % (auto) 0.0, Immature Platelet Fraction 1.6, Anion Gap 9, Glomerular Filtration Rate 10.8L, Blood Urea Nitrogen 54H, Creatinine 5.74H, Sodium Level 135L, Potassium Level 4.2, Chloride Level 99, Carbon Dioxide Level 27, Calcium Level 8.0L, Aspartate Amino Transf (AST/SGOT) 14, Alanine Aminotransferase (ALT/SGPT) 16, Alkaline Phosphatase 74, Total Bilirubin 0.4, Total Protein 6.0L, Albumin 2.2L, Magnesium Level 1.9, Albumin/Globulin Ratio 0.58L 04/14/18 14:42: Bedside Glucose (Misc Panel) 122H CBC/BMP Laboratory Tests 04/14/18 05:26 Red Blood Count 2.71 L, Mean Corpuscular Volume 94.1, Mean Corpuscular Hemoglobin 29.5, Mean Corpuscular Hemoglobin Concent 31.4 L, Red Cell Distribution Width 17.1 H, Neutrophils (%) (Auto) 88.0 H, Lymphocytes (%) (Auto) 9.4 L, Monocytes (%) (Auto) 2.3, Eosinophils (%) (Auto) 0.0, Basophils (%) (Auto) 0.0, Neutrophils # (Auto) 2.6, Lymphocytes # (Auto) 0.3 L, Monocytes # (Auto) 0.1, Eosinophils # (Auto) 0.0, Basophils # (Auto) 0.0, Calcium Level 8.0 L, Aspartate Amino Transf (AST/SGOT) 14, Alanine Aminotransferase (ALT/SGPT) 16, Alkaline Phosphatase 74, Total Bilirubin 0.4, Total Protein 6.0 L, Albumin 2.2 L Microbiology Microbiology 04/11/18 Blood Culture - Preliminary, Resulted No Growth after 72 hours. All specime... 04/11/18 Blood Culture - Preliminary, Resulted No Growth after 72 hours. All specime... 04/12/18 Stool Occult Blood (CARLYLE) - Final, Complete Allergies Coded Allergies: Shellfish Allergy (Verified Allergy, Unknown, 06/28/12) Contrast Media (Unverified Adverse Reaction, Unknown, KIDNEY PROBLEMS, 03/05/18) Hydralazine (Unverified Adverse Reaction, Unknown, dizziness, 03/05/18) Home Medications Scheduled (Katya Wilde) 300 Unit/Ml Inj, 70 UNIT SC QHS, (Reported) (Folic Acid) 800 Mcg Cap, 2,400 MCG PO DAILY, (Reported) Aspirin (Aspirin 81) 81 Mg Tab, 81 MG PO DAILY, (Reported) Calcitriol (Calcitriol) 0.25 Mcg Cap, 0.25 MCG PO DAILY, (Reported) Carvedilol (Carvedilol) 3.125 Mg Tab, 3.125 MG PO BID, (Reported) Cholecalciferol (Vitamin D3) 1,000 Unit Tab, 2,000 UNIT PO DAILY, (Reported) Clopidogrel Bisulfate (Clopidogrel) 75 Mg Tab, 75 MG PO QHS, (Reported) Cyanocobalamin (Vitamin B12) 500 Mcg Tab, 500 MCG PO TID, (Reported) Febuxostat (Uloric) 80 Mg Tab, 80 MG PO QHS, (Reported) Gabapentin (Gabapentin) 100 Mg Cap, 100 MG PO QHS, (Reported) Insulin Human Regular (Humulin R) 1 Units/0.01 Ml Soln, 0 SC ACHS, (Reported) PER SLIDING SCALE Melatonin (Melatonin) 5 Mg Tab, 5 MG PO QHS, (Reported) Methotrexate (Methotrexate) 2.5 Mg Tab, 15 MG PO QWEEK, (Reported) WEDNESDAYS Midodrine HCl (Midodrine HCl) 5 Mg Tab, 5 MG PO 3XW, (Reported) WED,WED,WED Pantoprazole Sodium (Pantoprazole Sodium) 40 Mg Tab, 40 MG PO BID, (Reported) Pravastatin Sodium (Pravastatin Sodium) 80 Mg Tab, 80 MG PO QHS, (Reported) Prednisone (Prednisone) 2.5 Mg Tab, 2.5 MG PO DAILY, (Reported) Ropinirole Hydrochloride (Ropinirole HCl) 1 Mg Tab, 1 MG PO QHS, (Reported) Sacubitril/Valsartan (Entresto 24-26 mg) 1 Tab Tab, 1 TAB PO BID, (Reported) Thiamine HCl (B-1) 250 Mg Tab, 250 MG PO DAILY, (Reported) Scheduled PRN Acetaminophen (Acetaminophen) 500 Mg Tab, 1,000 MG PO BID PRN for PAIN, (Reported) Bisacodyl (Dulcolax) 5 Mg Tab, 5 MG PO DAILY PRN for CONSTIPATION, (Reported) Docusate Sodium (Colace) 100 Mg Cap, 100 MG PO BID PRN for CONSTIPATION, (Reported) Linaclotide Base (Linzess) 290 Mcg Cap, 290 MCG PO DAILY PRN for CONSTIPATION, (Reported) Nitroglycerin (Nitrostat) 0.4 Mg Subl, 0.4 MG SL NITRO PRN for CHEST PAIN, (Reported) Ondansetron HCl (Zofran) 4 Mg Tab, 4 MG PO Q8H PRN for NAUSEA, (Reported) Polyethylene Glycol (Miralax) 1 Pow Pow, 17 GM PO DAILY PRN for CONSTIPATION, (Reported) Senna (Senna-Lax) 8.6 Mg Tab, 1 TAB PO BID PRN for CONSTIPATION, (Reported) Simethicone (Simethicone) 80 Mg Chew, 80 MG PO Q6H PRN for GAS PAIN, (Reported) LAN HARRIS MD Apr 14, 2018 18:15
[2018-04-14] MEDS ORDERED: FLEET ENEMA PR ONE (21:00)
[2018-04-14 22:00] VITALS: BP 108/60
[2018-04-14] MEDS: rOPINIRole 1MG TAB PO SCH (22:04)
[2018-04-14] MEDS: PRAVASTATIN 20 MG TAB PO SCH (22:04)
[2018-04-14] MEDS: GABAPENTIN 100 MG CAP PO SCH (22:04)
[2018-04-14] MEDS: CLOPIDOGREL 75 MG TAB PO SCH (22:05)
[2018-04-14] MEDS: LEVEMIR (INSULIN DETEMIR) 1 UNITS/0.01ML SC SCH (22:05)
[2018-04-14] MEDS: FEBUXOSTAT 40 MG TABLET (ULORIC) PO SCH (22:05)
--- NOTE | 2018-04-14 22:31 | IPN ---
DATE: 04/14/2018 SUBJECTIVE: Patient is seen and examined at the bedside today afternoon during hemodialysis. Patient is tolerating hemodialysis procedure well. He got the CT scan of the face and paranasal sinuses before coming to hemodialysis. OBJECTIVE: VITAL SIGNS: Temperature is 97.9 degrees Fahrenheit, blood pressure 116/57, pulse is 72, respiratory rate of 20, saturating 99% on room air. INTAKE AND OUTPUT: Urine output is not recorded. Weight on the bed scale is 84.4 kg. PHYSICAL EXAMINATION: GENERAL: Patient is awake, alert and oriented times three. Laying in bed, getting hemodialysis done. He denies any active complaints. HEAD/NECK: Extraocular muscles intact. Pupils equally round and reactive to light. Mucous membranes are moist. Neck is supple. He has a right IJ tunneled hemodialysis catheter. CARDIOVASCULAR: S1, S2, irregular heart rate. Trace edema of the bilateral lower extremities. RESPIRATORY: Decreased breath sounds at the bases. Mild amount of inspiratory crackles. Bilaterally at the bases. ABDOMEN: Abdomen is soft, distended. Abdominal wall edema. Right upper quadrant cholecystectomy scar. MUSCULOSKELETAL: No clubbing or cyanosis. Pulses are 2+. CENTRAL NERVOUS SYSTEM: No focal deficit. Power is 5/5 in all extremities. LABORATORY REVIEW: CBC showed a WBC of 3, hemoglobin is 8. Platelets are 85. BMP showed sodium 135, potassium 4.2, chloride 99, bicarbonate 27, BUN 54. Creatinine is 5.7. Calcium is 8. Magnesium 1.9. Microbiology: Stool occult blood done on 04/12/2018 was positive. IMAGING: Maxillofacial CT scan done today with contrast showed sinus mucosal thickening but there was no acute pathology. CURRENT INPATIENT MEDICATIONS: Patient's medications were all reviewed by me. There is no change in the medications today as compared with yesterday. ASSESSMENT AND PLAN: 1. End-stage renal disease on hemodialysis. The patient is getting back to back hemodialysis and ultrafiltration because of fluid overload. Ultrafiltration goal today will be 3 kg as tolerated by his blood pressure. Tomorrow patient will get ultrafiltration. Today he is getting hemodialysis. 2. Acute on chronic decompensated systolic congestive heart failure. Patient has history of coronary artery disease with multiple stents and coronary artery bypass surgery times two in the past. Volume status is being optimized with hemodialysis and ultrafiltration back to back. Continue daily weight. I placed him on fluid restriction 1500 mL daily. 3. Anemia secondary to end-stage renal disease and possible occult GI bleeding. Patient is fecal occult blood test positive. He has received three units of packed red blood cells transfusion during this admission as his hemoglobin is still 8. GI has been called on both. Patient is going to get a colonic prep and get colonoscopy and upper GI endoscopy done tomorrow morning. 4. Coronary artery disease and ischemic cardiomyopathy. Patient has very bad ischemic heart disease and positive family history of myocardial infarction ([place]) and in 50s. I would continue the aspirin and Plavix and statins at this point. His latest stent was placed in the fall of 2017.
[2018-04-15] MEDS: DOCUSATE SODIUM 100 MG CAP PO SCH ×3 (01:48→20:54)
[2018-04-15] MEDS: MIRALAX *UNIT DOSE* 17GM PACKET PO SCH ×3 (01:48→20:54)
[2018-04-15] MEDS: SENNA 8.6 MG TAB (SENOKOT) PO SCH ×2 (01:48→20:54)
[2018-04-15 06:00] VITALS: BP 99/54
[2018-04-15 07:03] LABS: BASO % 0.2 % (0.0-1.0); HEMATOCRIT 29.2 % (42.0-52.0); HEMOGLOBIN 9.2 g/dl (13.5-17.5); LYMPH % 5.3 % (24.0-44.0); MEAN CORPUSCULAR HEMOGLOBIN 29.2 pg (27.0-33.0); MEAN CORPUSCULAR HGB CONC 31.5 g/dl (32.0-36.5); MEAN CORPUSCULAR VOLUME 92.7 fl (80.0-96.0); MONO # 0.1 10^3/uL (0.0-0.8); MONO % 1.1 % (0.0-5.0); NEUTROPHILS # 4.2 10^3/uL (1.8-7.7); RED BLOOD COUNT 3.15 10^6/uL (4.30-6.10); WHITE BLOOD COUNT 4.5 10^3/uL (4.0-10.0)
[2018-04-15 07:24] LABS: LYMPH # 0.2 10^3/uL (1.5-4.5); PLATELET COUNT, AUTOMATED 62 10^3/uL (150-450)
[2018-04-15 07:28] LABS: ALBUMIN 2.3 GM/DL (3.2-5.2); BILIRUBIN,TOTAL 0.6 MG/DL (0.2-1.0); CALCIUM LEVEL 8.4 MG/DL (8.8-10.2); CREATININE FOR GFR 4.43 MG/DL (0.70-1.30); GLOMERULAR FILTRATION RATE 14.6 (>49); MAGNESIUM LEVEL 1.8 MG/DL (1.8-2.4); POTASSIUM SERUM 4.7 MEQ/L (3.5-5.1); TOTAL PROTEIN 6.2 GM/DL (6.4-8.2)
[2018-04-15] MEDS: CARVedilol 3.125 MG TAB PO SCH ×2 (09:00→20:56)
[2018-04-15] MEDS: ENTRESTO 24-26MG TABLET (SACUBITRIL/VALSARTAN) PO SCH ×2 (09:00→20:55)
[2018-04-15] MEDS: CYANOCOBALAMIN 500 MCG TAB PO SCH ×3 (09:32→20:54)
[2018-04-15] MEDS: ASPIRIN 81 MG ENTERIC TAB PO SCH (09:32)
[2018-04-15] MEDS: predniSONE 2.5 MG TAB PO SCH (09:32)
[2018-04-15] MEDS: VITAMIN D 1,000 INTERNATIONAL UNITS TABLET PO SCH (09:32)
[2018-04-15] MEDS: MIDODRINE 5 MG TAB PO SCH (09:32)
[2018-04-15] MEDS: FOLIC ACID 1 MG TAB PO SCH (09:32)
[2018-04-15] MEDS: PANTOPRAZOLE 40MG TAB (PROTONIX) PO SCH ×2 (09:32→20:55)
[2018-04-15] MEDS: CALCITRIOL 0.25 MCG CAP (S0169) PO SCH (09:32)
[2018-04-15] MEDS: THIAMINE 100 MG TAB PO SCH (09:33)
[2018-04-15] MEDS: HumaLOG INSULIN (NovoLOG) PER UNIT SC SCH ×4 (09:33→20:56)
[2018-04-15] MEDS ORDERED: HEPARIN 1,000 UNITS/ML 10ML VIAL (FOR RADIOLOGY& DIALYSIS ONLY) XX ONE (11:00)
[2018-04-15 11:22] LABS: HEPATITIS A ANTIBODY IGM NEGATIVE (NEGATIVE); HEPATITIS B CORE ANTIBODY IGM NEGATIVE (NEGATIVE); HEPATITIS B SURFACE ANTIGEN NEGATIVE (NEGATIVE); HEPATITIS C VIRUS ABY INDEX 0.1 INDEX (<0.8); HIV 1&2 SCREEN CENTAUR NEGATIVE (NEGATIVE)
--- NOTE | 2018-04-15 12:09 | IPNPDOC ---
Text Note Date of Service The patient was seen on 04/15/18. NOTE Subjective: Patient is a 62-year-old male with a PMHx of ESRD on HD (TTS), CAD s/p CABG / Stents (Hx of [place]), Systolic CHF, s/p PM, HTN, DLP, COPD, who presented to the ER with complaints of SOB. In the emergency room, patient was found to have fluid overload and was admitted to hospitalist service for further evaluation and treatment. Patient was seen and examined at the bedside. Patient denies any nausea, vomiting, chest pain, palpitations or cough. He still express shortness of breath with exertion. However, he notes that this is improving. Denies any abdominal pain, constipation or diarrhea. Has not been experiencing any bright red bleeding per rectum. Objective: Vitals (See below) General: Lying in bed, no acute distress, comfortable, AAOx3 HEENT: NC, AT CVS: RRR, +S1S2 Lungs: Fair air entry b/l, there is very faint crackles on inspiration, no evidence of wheezing or rhonchi Abdomen: Soft, abdomen does still with distention, no significant tenderness Extremities: LE reveal 1+ edema b/l, - Calf tenderness Assessment and plan: Fluid overload - likely 2/2 acute decompensated systolic CHF / ESRD on HD (TTS) - Presented to the ER with complaints of SOB; reports exertional shortness of breath - Physical with lower extremity swelling still persistent - BNP significantly elevated - CXR 04/11: 1. Interstitial edema. 2. Cardiomegaly. - Will c/w HD - Nephrology (Dr. Alejo) on consultation; appreciate their input Normocytic anemia - likely 2/2 GI source, possibly 2/2 ESRD, - Patient has noted a history of BRBPR ~2 weeks ago; has since resolved - Hg has trended down from admission without IV fluids / intervention - Denies any acute blood loss - Occult blood positive - s/p 3 units PRBC - Give recent stent placement and advanced cardiac history (29 stent placements); will c/w ASA / Plavix - Will continue to monitor H&H - Dr. Chow on consult; appreciate his input; patient will pursue evaluation via EGD / Colonoscopy at a later time given recent cardiac intervention Abdominal distension - suspected to be 2/2 Ascites - US abdomen 04/13: No evidence of fluid - c/w HD s/p Leukopenia - Hepatitis profile / HIV negative - Peripheral smear 04/15: Negative - Will continue to monitor Left jaw pain - CT maxillofacial 04/14: Minimal mucosal thickening is present in the ethmoid and maxillary sinuses - Will have outpatient f/u with dentist CAD s/p CABG / Stents (Hx of [place]) - c/w ASA and Plavix s/p PM HTN - c/w Sacubitril / Valsartan, Carvedilol, - c/w Midodrine during HD sessions IDDM2 with Hypoglycemia - c/w Levemir and ISS DLP - c/w Pravastatin COPD - No evidence of exacerbation - c/w inhaled therapy as ordered Neuropathy - c/w Gabapentin Gout - c/w Febuxostat RLS - c/w Ropinirole RA - c/w Methotrexate / Prednisone GERD - c/w Protonix DVT prophylaxis - c/w SCDs Disposition: - Awaiting clinical improving - awaiting euvolemia VS,Fishbone, I+O VS, Fishbone, I+O Laboratory Tests 04/15/18 06:39 Red Blood Count 3.15 L, Mean Corpuscular Volume 92.7, Mean Corpuscular Hemoglobin 29.2, Mean Corpuscular Hemoglobin Concent 31.5 L, Red Cell Distribution Width 17.4 H, Neutrophils (%) (Auto) 93.0 H, Lymphocytes (%) (Auto) 5.3 L, Monocytes (%) (Auto) 1.1, Eosinophils (%) (Auto) 0.0, Basophils (%) (Auto) 0.2, Neutrophils # (Auto) 4.2, Lymphocytes # (Auto) 0.2 L, Monocytes # (Auto) 0.1, Eosinophils # (Auto) 0.0, Basophils # (Auto) 0.0, Calcium Level 8.4 L, Aspartate Amino Transf (AST/SGOT) 17, Alanine Aminotransferase (ALT/SGPT) 16, Lactate Dehydrogenase 241, Alkaline Phosphatase 78, Total Bilirubin 0.6, Total Protein 6.2 L, Albumin 2.3 L Vital Signs Date Time Temp Pulse Resp B/P (MAP) Pulse Ox O2 Delivery O2 Flow Rate FiO2 04/15/18 09:00 78 99/54 04/15/18 06:00 98.1 20 95 04/14/18 14:00 Room Air 04/11/18 21:30 3.0 I&O- Last 24 Hours up to 6 AM 04/15/18 06:00 Intake Total 1680 ml Output Total 3150 ml Balance -1470 ml MELISSA MCDANIEL MD Apr 15, 2018 12:09
[2018-04-15 16:41] VITALS: BP 116/64
[2018-04-15 18:02] LABS: HEMATOCRIT 31.7 % (42.0-52.0); HEMOGLOBIN 10.1 g/dl (13.5-17.5)
[2018-04-15] MEDS: CLOPIDOGREL 75 MG TAB PO SCH (20:54)
[2018-04-15] MEDS: FEBUXOSTAT 40 MG TABLET (ULORIC) PO SCH (20:54)
[2018-04-15] MEDS: PRAVASTATIN 20 MG TAB PO SCH (20:54)
[2018-04-15] MEDS: GABAPENTIN 100 MG CAP PO SCH (20:55)
[2018-04-15] MEDS: rOPINIRole 1MG TAB PO SCH (20:55)
[2018-04-15] MEDS: LEVEMIR (INSULIN DETEMIR) 1 UNITS/0.01ML SC SCH (20:57)
[2018-04-15] MEDS: PREPARATION H OINTMENT (HEMORRHOID) PR PRN (21:04)
[2018-04-15 22:00] VITALS: BP 112/59
[2018-04-16] MEDS ORDERED: ACETAMINOPHEN 500 MG TAB PO PRN (05:57)
[2018-04-16 06:00] VITALS: BP 119/59
[2018-04-16 06:51] LABS: ALBUMIN 2.2 GM/DL (3.2-5.2); BILIRUBIN,TOTAL 0.5 MG/DL (0.2-1.0); CALCIUM LEVEL 7.8 MG/DL (8.8-10.2); CREATININE FOR GFR 3.98 MG/DL (0.70-1.30); GLOMERULAR FILTRATION RATE 16.5 (>49); MAGNESIUM LEVEL 1.9 MG/DL (1.8-2.4); POTASSIUM SERUM 4.1 MEQ/L (3.5-5.1); TOTAL PROTEIN 5.5 GM/DL (6.4-8.2)
[2018-04-16 07:27] LABS: HEMATOCRIT 27.8 % (42.0-52.0); HEMOGLOBIN 8.8 g/dl (13.5-17.5); LYMPH % 5.5 % (24.0-44.0); MEAN CORPUSCULAR HGB CONC 31.7 g/dl (32.0-36.5); MEAN CORPUSCULAR VOLUME 91.7 fl (80.0-96.0); MONO % 0.8 % (0.0-5.0); NEUTROPHILS # 3.4 10^3/uL (1.8-7.7); NEUTROPHILS % 93.1 % (36.0-66.0); RED BLOOD COUNT 3.03 10^6/uL (4.30-6.10); WHITE BLOOD COUNT 3.6 10^3/uL (4.0-10.0)
[2018-04-16 07:28] LABS: LYMPH # 0.2 10^3/uL (1.5-4.5); PLATELET COUNT, AUTOMATED 47 10^3/uL (150-450)
[2018-04-16] MEDS: HumaLOG INSULIN (NovoLOG) PER UNIT SC SCH ×4 (08:02→22:19)
[2018-04-16] MEDS: MIRALAX *UNIT DOSE* 17GM PACKET PO SCH ×2 (09:00→20:53)
[2018-04-16] MEDS ORDERED: CEFTAROLINE FOSAMIL 600 MG in D5W MINI-BAG PLUS 50 ML IV SCH (09:00)
[2018-04-16] MEDS: CARVedilol 3.125 MG TAB PO SCH ×2 (09:00→22:18)
[2018-04-16 09:21] VITALS: BP 97/52
--- NOTE | 2018-04-16 10:27 | REP ---
CHEST PA AND LATERAL: 04/16/2018. Comparison: Portable chest 04/11/2018, 03/05/2018; chest x-ray 01/10/2015. Clinical history: Fever. Findings: A multi lead pacer again seen and unchanged. There is a right jugular dialysis catheter also unchanged. Lungs are well inflated. The pattern of interstitial edema has improved since the previous study with less vascular congestion. I do not see pleural effusion. No dense consolidation or air bronchograms evident. No parenchymal mass. Heart size borderline. Still with some mild pulmonary venous hypertension. Sternotomy wires and mediastinal clips unchanged. Bony thorax without compression deformity or focal lesion. Right upper quadrant surgical clips noted. Impression: 1. No dense consolidation, pleural effusion or parenchymal mass. I see no air bronchograms. 2. Right jugular dialysis catheter and multi lead pacer again seen. 3. Sternotomy wires and clips from CABG with cardiomegaly, improved vascular congestion but still with some pulmonary venous hypertension. Electronically Signed by Donnell Gupta MD 04/16/2018 01:22 P
--- NOTE | 2018-04-16 10:49 | IPN ---
DATE OF SERVICE: 04/15/2018 SUBJECTIVE: Patient was seen and examined at the bedside today morning. He is afebrile and hemodynamically stable. He got the ultrafiltration done yesterday, 3 liters of fluid was removed. Endoscopy was postponed by gastroenterology. The patient was advised to get as needed blood transfusion. Further work up for possible slow GI bleed will be done as outpatient. The patient reports that his shortness of breath is slowly getting better. OBJECTIVE: VITAL SIGNS: Temperature is 98.1 degrees Fahrenheit, blood pressure 99/54, pulse is 78, respiratory rate of 20, saturating 95% on room air. INTAKE AND OUTPUT: Urine output recorded as 650 mL. Weight on the bed scale is 82.5 kg. PHYSICAL EXAMINATION: GENERAL: Patient is awake, alert and oriented times three, laying in bed. No active complaints. HEAD/NECK EXAM: Extraocular muscles intact. Pupils equally round and reactive to light. Mucous membranes are moist. Neck is supple. Right internal jugular (IJ) tunneled hemodialysis catheter. CARDIOVASCULAR: S1 and S2, irregular heart rate. Trace edema of the bilateral lower extremities. RESPIRATORY: Decreased breath sounds at the bases. Mild amount of inspiratory crackles bilaterally at the bases. ABDOMEN: Abdomen is soft, distended. Positive abdominal wall edema. No organomegaly. MUSCULOSKELETAL: No clubbing or cyanosis. Pulses are 2+. CENTRAL NERVOUS SYSTEM: No focal deficit. Power is 5/5 in all extremities. LABORATORY REVIEW: CBC showed a WBC of 4.5, hemoglobin 9.2 and platelets are 62. BMP showed sodium 136, potassium 4.7, chloride 100, bicarbonate 30, BUN 33, creatinine 4.4. Albumin 2.3. CURRENT INPATIENT MEDICATIONS: Patient's medications were all reviewed by me. There is no change in the medications today as compared with yesterday. ASSESSMENT AND PLAN: 1. End-stage renal disease on hemodialysis. The patient is getting back to back hemodialysis and ultrafiltration for fluid overload. He will be hemodialyzed again today. I will try to remove 3 kg of fluid as tolerated by his blood pressure. 2. Acute on chronic decompensated systolic congestive heart failure. Patient still has significant fluid overload. Continue fluid restriction 1.5 liters daily. Continue alternating hemodialysis and ultrafiltration sessions. Patient is not on any diuretics at this point. 3. Anemia secondary to end-stage renal disease and possible occult GI bleeding. Gastroenterology service has canceled the endoscopy. Transfuse as needed for hemoglobin below 8. Continue Venofer and Aranesp with hemodialysis. 4. Coronary artery disease and ischemic cardiomyopathy. Volume is being optimized with hemodialysis. Continue current dose of aspirin, Plavix, Entresto, and Coreg.
[2018-04-16] MEDS ORDERED: HEPARIN 1,000 UNITS/ML 10ML VIAL (FOR RADIOLOGY& DIALYSIS ONLY) XX ONE (11:30)
[2018-04-16 12:41] LABS: HEMATOCRIT 31.1 % (42.0-52.0); HEMOGLOBIN 9.7 g/dl (13.5-17.5)
[2018-04-16] MEDS: CYANOCOBALAMIN 500 MCG TAB PO SCH ×3 (13:45→20:53)
[2018-04-16 14:00] VITALS: BP 106/57
[2018-04-16] MEDS: CALCITRIOL 0.25 MCG CAP (S0169) PO SCH (14:01)
[2018-04-16] MEDS: ENTRESTO 24-26MG TABLET (SACUBITRIL/VALSARTAN) PO SCH ×2 (14:02→20:52)
[2018-04-16] MEDS: PANTOPRAZOLE 40MG TAB (PROTONIX) PO SCH ×2 (14:02→20:52)
[2018-04-16] MEDS: THIAMINE 100 MG TAB PO SCH (14:02)
[2018-04-16] MEDS: ASPIRIN 81 MG ENTERIC TAB PO SCH (14:02)
[2018-04-16] MEDS: DOCUSATE SODIUM 100 MG CAP PO SCH ×2 (14:02→20:52)
[2018-04-16] MEDS: VITAMIN D 1,000 INTERNATIONAL UNITS TABLET PO SCH (14:03)
[2018-04-16] MEDS: FOLIC ACID 1 MG TAB PO SCH (14:03)
[2018-04-16] MEDS: predniSONE 2.5 MG TAB PO SCH (14:08)
--- NOTE | 2018-04-16 14:19 | IPNPDOC ---
Text Note Date of Service The patient was seen on 04/16/18. NOTE Subjective: Patient is a 62-year-old male with a PMHx of ESRD on HD (TTS), CAD s/p CABG / Stents (Hx of [place]), Systolic CHF, s/p PM, HTN, DLP, COPD, who presented to the ER with complaints of SOB. In the emergency room, patient was found to have fluid overload and was admitted to hospitalist service for further evaluation and treatment. Patient was seen and examined at the bedside. Currently patient denies any chest pain, shortness of breath or palpitations or shortness of breath with exertion. He improving. They deny any cough. . They do report that her left forearm were some redness, tenderness and warmth. They deny any abdominal pain, constipation or diarrhea. Objective: Vitals (See below) General: Lying in bed, no acute distress, comfortable, AAOx3 HEENT: NC, AT CVS: RRR, +S1S2 Lungs: Fair air entry b/l, no significant rales, rhonchi or wheezing Abdomen: Soft, nontender, although appears slightly distended Extremities: LE still reveal 1+ edema b/l, - Calf tenderness Assessment and plan: Fluid overload - likely 2/2 acute decompensated systolic CHF / ESRD on HD (TTS) - Presented to the ER with complaints of SOB; reports exertional shortness of breath - Physical with lower extremity swelling still persistent - BNP significantly elevated - CXR 04/11: 1. Interstitial edema. 2. Cardiomegaly. - c/w HD - Nephrology (Dr. Alejo) on consultation; appreciate their input Normocytic anemia - likely 2/2 GI source, possibly 2/2 ESRD, - Patient has noted a history of BRBPR ~2 weeks ago; has since resolved - Hg has trended down from admission without IV fluids / intervention - Denies any acute blood loss - H&H remains stable - Reticulocyte count elevated - Occult blood positive - s/p 3 units PRBC - Give recent stent placement and advanced cardiac history (29 stent placement s); c/w ASA / Plavix - Dr. Chow on consult; appreciate his input; patient will pursue evaluation via EGD / Colonoscopy at a later time given recent cardiac intervention Left arm erythema / warmth / tenderness - possibly 2/2 cellulitis - Had a febrile episode overnight - Left arm with erythema, warmth and tenderness - No leukocytosis; no lactic acidosis - Will start ceftaroline (Day #1) Abdominal distension - suspected to be 2/2 Ascites - US abdomen 04/13: No evidence of fluid - c/w HD s/p Leukopenia - Hepatitis profile / HIV negative - Peripheral smear 04/15: Negative - Will continue to monitor Left jaw pain - CT maxillofacial 04/14: Minimal mucosal thickening is present in the ethmoid and maxillary sinuses - Will have outpatient f/u with dentist CAD s/p CABG / Stents (Hx of [place]) - c/w ASA and Plavix s/p PM HTN - c/w Sacubitril / Valsartan, Carvedilol, - c/w Midodrine during HD sessions IDDM2 with Hypoglycemia - c/w Levemir and ISS DLP - c/w Pravastatin COPD - No evidence of exacerbation - c/w inhaled therapy as ordered Neuropathy - c/w Gabapentin Gout - c/w Febuxostat RLS - c/w Ropinirole RA - c/w Prednisone - Will hold Methotrexate GERD - c/w Protonix DVT prophylaxis - c/w SCDs Disposition: - Awaiting clinical improving - awaiting euvolemia VS,Fishbone, I+O VS, Fishbone, I+O Laboratory Tests 04/15/18 17:52 04/16/18 05:13 Red Blood Count 3.03 L, Mean Corpuscular Volume 91.7, Mean Corpuscular Hemoglobin 29.0, Mean Corpuscular Hemoglobin Concent 31.7 L, Red Cell Distrib ution Width 16.6 H, Neutrophils (%) (Auto) 93.1 H, Lymphocytes (%) (Auto) 5.5 L, Monocytes (%) (Auto) 0.8, Eosinophils (%) (Auto) 0.0, Basophils (%) (Auto) 0.0, Neutrophils # (Auto) 3.4, Lymphocytes # (Auto) 0.2 L, Monocytes # (Auto) 0.0, Eosinophils # (Auto) 0.0, Basophils # (Auto) 0.0, Calcium Level 7.8 L, Aspartate Amino Transf (AST/SGOT) 18, Alanine Aminotransferase (ALT/SGPT) 15, Alkaline Aiden sphatase 101, Total Bilirubin 0.5, Total Protein 5.5 L, Albumin 2.2 L 1/19/19 12:09 Vital Signs Date Time Temp Pulse Resp B/P (MAP) Pulse Ox O2 Delivery O2 Flow Rate FiO2 04/16/18 09:21 75 97/52 (67) 04/16/18 06:52 99.2 04/16/18 06:00 18 94 NIPPV (BIPAP/CPAP) 04/11/18 21:30 3.0 I&O- Last 24 Hours up to 6 AM 04/16/18 06:00 Intake Total 1693 ml Output Total 3600 ml Balance -1907 ml MELISSA MCDANIEL MD Apr 16, 2018 14:19
[2018-04-16] MEDS: CEFTAROLINE FOSAMIL 200 MG in D5W 50 ML IV SCH (16:28)
[2018-04-16] MEDS: GABAPENTIN 100 MG CAP PO SCH (20:52)
[2018-04-16] MEDS: CLOPIDOGREL 75 MG TAB PO SCH (20:52)
[2018-04-16] MEDS: rOPINIRole 1MG TAB PO SCH (20:52)
[2018-04-16] MEDS: FEBUXOSTAT 40 MG TABLET (ULORIC) PO SCH (20:52)
[2018-04-16] MEDS: PRAVASTATIN 20 MG TAB PO SCH (20:53)
[2018-04-16] MEDS: SENNA 8.6 MG TAB (SENOKOT) PO SCH (20:53)
[2018-04-16] MEDS: LEVEMIR (INSULIN DETEMIR) 1 UNITS/0.01ML SC SCH (20:55)
[2018-04-16 22:00] VITALS: BP 110/56
[2018-04-17] VITALS (9 sets, daily range): BP systolic 101–123; BP diastolic 53–70
[2018-04-17] MEDS: CEFTAROLINE FOSAMIL 200 MG in D5W 50 ML IV SCH ×2 (02:28→15:01)
[2018-04-17 06:46] LABS: HEMATOCRIT 29.7 % (42.0-52.0); HEMOGLOBIN 9.4 g/dl (13.5-17.5); LYMPH % 7.1 % (24.0-44.0); MEAN CORPUSCULAR HEMOGLOBIN 29.4 pg (27.0-33.0); MEAN CORPUSCULAR HGB CONC 31.6 g/dl (32.0-36.5); MEAN CORPUSCULAR VOLUME 92.8 fl (80.0-96.0); MONO % 0.6 % (0.0-5.0); NEUTROPHILS % 91.4 % (36.0-66.0); WHITE BLOOD COUNT 3.2 10^3/uL (4.0-10.0)
[2018-04-17 06:47] LABS: LYMPH # 0.2 10^3/uL (1.5-4.5); PLATELET COUNT, AUTOMATED 36 10^3/uL (150-450)
[2018-04-17 07:11] LABS: ALBUMIN 2.2 GM/DL (3.2-5.2); BILIRUBIN,TOTAL 0.5 MG/DL (0.2-1.0); CALCIUM LEVEL 8.5 MG/DL (8.8-10.2); CREATININE FOR GFR 5.85 MG/DL (0.70-1.30); GLOMERULAR FILTRATION RATE 10.6 (>49); MAGNESIUM LEVEL 1.8 MG/DL (1.8-2.4); POTASSIUM SERUM 4.4 MEQ/L (3.5-5.1); TOTAL PROTEIN 6.6 GM/DL (6.4-8.2)
[2018-04-17] MEDS: predniSONE 2.5 MG TAB PO SCH (08:41)
[2018-04-17] MEDS: CYANOCOBALAMIN 500 MCG TAB PO SCH ×3 (08:41→21:40)
[2018-04-17] MEDS: PANTOPRAZOLE 40MG TAB (PROTONIX) PO SCH (08:41)
[2018-04-17] MEDS: CALCITRIOL 0.25 MCG CAP (S0169) PO SCH (08:41)
[2018-04-17] MEDS: ASPIRIN 81 MG ENTERIC TAB PO SCH (08:41)
[2018-04-17] MEDS: THIAMINE 100 MG TAB PO SCH (08:42)
[2018-04-17] MEDS: FOLIC ACID 1 MG TAB PO SCH (08:42)
[2018-04-17] MEDS: CARVedilol 3.125 MG TAB PO SCH ×2 (08:42→21:41)
[2018-04-17] MEDS: DOCUSATE SODIUM 100 MG CAP PO SCH ×2 (08:42→21:39)
[2018-04-17] MEDS: VITAMIN D 1,000 INTERNATIONAL UNITS TABLET PO SCH (08:42)
[2018-04-17] MEDS: ENTRESTO 24-26MG TABLET (SACUBITRIL/VALSARTAN) PO SCH ×2 (08:42→21:39)
[2018-04-17] MEDS: MIRALAX *UNIT DOSE* 17GM PACKET PO SCH ×2 (08:43→21:39)
[2018-04-17] MEDS: HumaLOG INSULIN (NovoLOG) PER UNIT SC SCH ×4 (08:43→21:40)
[2018-04-17 09:22] LABS: C REACTIVE PROTEIN QUANTITATIV 14.1 MG/DL (0.00-0.30)
--- NOTE | 2018-04-17 09:58 | IPN ---
DATE OF SERVICE: 04/16/2018 SUBJECTIVE: Patient was seen and examined at the bedside today morning during hemodialysis procedure. The patient reports he has a rash on the left forearm. He also has tenderness on the right internal jugular (IJ) tunneled hemodialysis catheter site. The patient also reports low grade temperature. He was also started on IV ceftaroline by the primary team. He is otherwise tolerating the hemodialysis. OBJECTIVE: VITAL SIGNS: Temperature is 99.2 degrees Fahrenheit, T-max 101.1 degrees Fahrenheit, blood pressure 97/52, pulse is 75, respiratory rate of 18, saturating 94% on BiPAP. INTAKE AND OUTPUT: Urine output recorded as 100 mL. Weight on the bed scale is 82.3 kg. PHYSICAL EXAMINATION: GENERAL: Patient is awake, alert and oriented times three, laying in bed, in no apparent distress. HEAD/NECK EXAM: Extraocular muscles intact. Pupils equally round and reactive to light. Mucous membranes are moist. Neck is supple. He has a right internal jugular (IJ) tunneled hemodialysis catheter and the tunnel site is erythematous and tender. CARDIOVASCULAR: S1 and S2, irregular heart rate. Trace edema of the bilateral lower extremities. RESPIRATORY: Mildly decreased breath sounds at the bases. Otherwise no active rales or rhonchi. ABDOMEN: Abdomen is soft, distended. No organomegaly. MUSCULOSKELETAL: No clubbing or cyanosis. Pulses are 2+. CENTRAL NERVOUS SYSTEM: No focal deficit. Power is 5/5 in all extremities. SKIN: Patient has an erythematous rash on the left forearm. LABORATORY REVIEW: CBC showed a WBC of 3.6, hemoglobin 9.7 and platelets are 47. BMP showed sodium 138, potassium 4.1, chloride 100, bicarbonate 30, BUN 27, creatinine 3.9. Lactic acid 1.1. Magnesium 1.9. Calcium 7.8. IMAGING: A chest x-ray was done today which showed no consolidation, pleural effusion or parenchymal mass. CURRENT INPATIENT MEDICATIONS: Patient's medications were all reviewed by me. He was started on ceftaroline 200 mg IV every 12 hours. He is getting Tylenol as needed. His methotrexate has been stopped. No other change in the medications today as compared with yesterday. ASSESSMENT AND PLAN: 1. End-stage renal disease on hemodialysis. The patient is getting daily back to back hemodialysis and ultrafiltration sessions because of fluid overload. He is getting the ultrafiltration today. Ultrafiltration goal will be 2.5 liters as tolerated by his blood pressure. 2. Fevers and low blood pressures along with leukopenia. The patient is on methotrexate. Methotrexate has been stopped. Cultures from the IJ tunneled hemodialysis catheter site and blood cultures were also sent before dialysis today. Primary team has already started the patient on ceftaroline. I suspect the patient has tunnel infection of the right IJ tunneled catheter. 3. Acute on chronic decompensated systolic congestive heart failure. Patient is getting daily dialysis ultrafiltration. Volume status is significantly improving. Okay to continue current dose of Entresto and Coreg. 4. Anemia secondary to end-stage renal disease. The patient likely has a slow occult GI bleed as well. Endoscopy was deferred because of extensive history of coronary artery disease. Hemoglobin is stable at 9.7, which is optimal.
[2018-04-17] MEDS: OXYMETAZOLINE NASAL SPRAY (AFRIN) SCH ×2 (11:54→21:41)
[2018-04-17] MEDS: SODIUM CHLORIDE NASAL 0.65% SPRAY BTL (OCEAN) SCH ×3 (11:54→21:42)
--- NOTE | 2018-04-17 13:25 | IPNPDOC ---
Text Note Date of Service The patient was seen on 04/17/18. NOTE Subjective: Patient is a 62-year-old male with a PMHx of ESRD on HD (TTS), CAD s/p CABG / Stents (Hx of [place]), Systolic CHF, s/p PM, HTN, DLP, COPD, who presented to the ER with complaints of SOB. In the emergency room, patient was found to have fluid overload and was admitted to hospitalist service for further evaluation and treatment. Patient was seen and examined at the bedside. Patient is complaining of nasal bleed this morning. Denies any chest pain, shortness of breath, palpitations. Denies nausea, vomiting, abdominal pain. Denies constipation or diarrhea. . Currently, he notes that his left arm still experiencing some pain. Objective: Vitals (See below) General: Lying in bed, no acute distress, comfortable, AAOx3 HEENT: NC, AT CVS: RRR, +S1S2 Lungs: Fair air entry b/l, auscultations without any wheezing, rales or Abdomen: Soft, ND without tenderness Extremities: LE still reveal 1+ edema b/l, - Calf tenderness Skin: Left forearm with area of erythema, warmth, tenderness Assessment and plan: Fluid overload - likely 2/2 acute decompensated systolic CHF / ESRD on HD (TTS) - Presented to the ER with complaints of SOB; reports exertional shortness of breath - Physical with improving signs of fluid overload - BNP significantly elevated - CXR 04/11: 1. Interstitial edema. 2. Cardiomegaly. - c/w HD - Nephrology (Dr. Alejo) on consultation; appreciate their input Normocytic anemia - likely 2/2 GI source, possibly 2/2 ESRD, - Patient has noted a history of BRBPR ~2 weeks ago; has since resolved - Hg has trended down from admission without IV fluids / intervention - Denies any acute blood loss - H&H remains stable - Reticulocyte count elevated - Occult blood positive - s/p 3 units PRBC - Give recent stent placement and advanced cardiac history (29 stent placements ); c/w ASA / Plavix - Dr. Chow on consult; appreciate his input; patient will pursue evaluation via EGD / Colonoscopy at a later time given recent cardiac intervention Thrombocytopenia - Experiencing some epistaxis - Hepatitis profile and HIV negative - US abdomen to evaluate for hepatosplenomegaly - Case has been discussed with ENT (Dr. Mcfadden); at this point, will continue with Afrin and saline nasal spray - Will transfuse 2 units of platelets - Will discuss with the patient about considering holding Plavix Leukopenia - Hepatitis profile / HIV negative - Peripheral smear 04/15: Negative - Will continue to monitor Left arm erythema / warmth / tenderness - possibly 2/2 cellulitis - Had a febrile episode overnight - Left arm with erythema, warmth and tenderness - No leukocytosis; no lactic acidosis - c/w ceftaroline (Day #2) Abdominal distension - suspected to be 2/2 Ascites - US abdomen 04/13: No evidence of fluid - c/w HD Left jaw pain - CT maxillofacial 04/14: Minimal mucosal thickening is present in the ethmoid and maxillary sinuses - Will have outpatient f/u with dentist CAD s/p CABG / Stents (Hx of [place]) - Patient has a history of 29 stent placements - Most recent stent was placed in January - Outpatient hospital pharmacy director is Dr. Alvarado - c/w ASA and Plavix s/p PM HTN - c/w Sacubitril / Valsartan, Carvedilol, - c/w Midodrine during HD sessions IDDM2 with Hypoglycemia - c/w Levemir and ISS DLP - c/w Pravastatin COPD - No evidence of exacerbation - c/w inhaled therapy as ordered Neuropathy - c/w Gabapentin Gout - c/w Febuxostat RLS - c/w Ropinirole RA - c/w Prednisone - Will hold Methotrexate GERD - c/w Protonix DVT prophylaxis - c/w SCDs Disposition: - Awaiting clinical improving - awaiting euvolemia VS,Natalia, I+O VS, Natalia, I+O Laboratory Tests 04/17/18 06:19 Red Blood Count 3.20 L, Mean Corpuscular Volume 92.8, Mean Corpuscular Hemoglobin 29.4, Mean Corpuscular Hemoglobin Concent 31.6 L, Red Cell Distribution Width 16.4 H, Neutrophils (%) (Auto) 91.4 H, Lymphocytes (%) (Auto) 7.1 L, Monocytes (%) (Auto) 0.6, Eosinophils (%) (Auto) 0.0, Basophils (%) ( Auto) 0.0, Neutrophils # (Auto) 3.0, Lymphocytes # (Auto) 0.2 L, Monocytes # (Auto) 0.0, Eosinophils # (Auto) 0.0, Basophils # (Auto) 0.0, Calcium Level 8.5 L, Aspartate Amino Transf (AST/SGOT) 17, Alanine Aminotransferase (ALT/SGPT) 15, Alkaline Phosphatase 83, Total Bilirubin 0.5, Total Protein 6.6, Albumin 2.2 L Vital Signs Date Time Temp Pulse Resp B/P (MAP) Pulse Ox O2 Delivery O2 Flow Rate FiO2 04/17/18 12:50 98.7 88 18 106/53 (70) 96 Room Air 04/11/18 21:30 3.0 I&O- Last 24 Hours up to 6 AM 04/17/18 05:59 Intake Total 730 ml Output Total 2600 ml Balance -1870 ml MELISSA MCDANIEL MD Apr 17, 2018 13:25
[2018-04-17] MEDS: FAMOTIDINE IV BAG 20 MG in APPROPRIATE DILUENT 1 EA IV SCH (14:26)
--- NOTE | 2018-04-17 14:27 | REP ---
BILATERAL UPPER EXTREMITY DOPPLER VENOUS ULTRASOUND: 04/17/2018. Clinical history: Evaluate for DVT. The patient has a right jugular dialysis catheter. Findings: There were no prior pertinent studies. The right subclavian vein shows color filling its course. The jugular vein is seen in part with temporary dialysis catheter present and no other findings. In the right axillary, parabrachial veins and the cephalic and basilic veins of the superficial system show color flow throughout and respiratory variation and augmented flow throughout. They are compressible. The left upper extremity showing subclavian and jugular veins filled completely on the color images along the axillary, brachial veins to the antecubital fossa and both cephalic and basilic veins are normal. Respiratory variation and augmented flow and complete compressibility of these veins noted. Impression: 1. No Doppler venous ultrasound evidence of DVT in the bilateral upper extremities. The cephalic and basilic veins of the superficial system are also without evidence for any superficial thrombophlebitis. Electronically Signed by Donnell Gupta MD 04/17/2018 04:38 P
[2018-04-17 18:35] LABS: HEMATOCRIT 28.1 % (42.0-52.0); HEMOGLOBIN 8.8 g/dl (13.5-17.5); MEAN CORPUSCULAR HEMOGLOBIN 29.3 pg (27.0-33.0); MEAN CORPUSCULAR HGB CONC 31.3 g/dl (32.0-36.5); MEAN CORPUSCULAR VOLUME 93.7 fl (80.0-96.0); MONO % 0.8 % (0.0-5.0); NEUTROPHILS # 2.5 10^3/uL (1.8-7.7); NEUTROPHILS % 92.1 % (36.0-66.0); WHITE BLOOD COUNT 2.7 10^3/uL (4.0-10.0)
[2018-04-17 19:08] LABS: LYMPH # 0.2 10^3/uL (1.5-4.5); PLATELET COUNT, AUTOMATED 44 10^3/uL (150-450)
[2018-04-17] MEDS: CLOPIDOGREL 75 MG TAB PO SCH (21:39)
[2018-04-17] MEDS: PRAVASTATIN 20 MG TAB PO SCH (21:39)
[2018-04-17] MEDS: GABAPENTIN 100 MG CAP PO SCH (21:39)
[2018-04-17] MEDS: FEBUXOSTAT 40 MG TABLET (ULORIC) PO SCH (21:39)
[2018-04-17] MEDS: rOPINIRole 1MG TAB PO SCH (21:39)
[2018-04-17] MEDS: SENNA 8.6 MG TAB (SENOKOT) PO SCH (21:39)
[2018-04-17] MEDS: LEVEMIR (INSULIN DETEMIR) 1 UNITS/0.01ML SC SCH (21:40)
[2018-04-17] MEDS: ACETAMINOPHEN TAB 650MG DOSE (2X325MG) PO PRN (21:40)
[2018-04-18] MEDS: FAMOTIDINE IV BAG 20 MG in APPROPRIATE DILUENT 1 EA IV SCH ×2 (01:49→13:22)
[2018-04-18] MEDS: ONDANSETRON 4 MG TAB (S0181) PO PRN (01:49)
[2018-04-18] MEDS: CEFTAROLINE FOSAMIL 200 MG in D5W 50 ML IV SCH ×2 (02:42→18:47)
[2018-04-18 06:00] VITALS: BP 102/57
[2018-04-18 06:18] LABS: HEMOGLOBIN 8.1 g/dl (13.5-17.5); LYMPH % 14.9 % (24.0-44.0); MEAN CORPUSCULAR HEMOGLOBIN 28.9 pg (27.0-33.0); MEAN CORPUSCULAR HGB CONC 31.2 g/dl (32.0-36.5); MEAN CORPUSCULAR VOLUME 92.9 fl (80.0-96.0); MONO % 1.4 % (0.0-5.0); NEUTROPHILS # 1.2 10^3/uL (1.8-7.7)
[2018-04-18 06:27] LABS: WHITE BLOOD COUNT 1.4 10^3/uL (4.0-10.0)
[2018-04-18 06:39] LABS: LYMPH # 0.2 10^3/uL (1.5-4.5); PLATELET COUNT, AUTOMATED 26 10^3/uL (150-450)
[2018-04-18 06:50] LABS: ALBUMIN 2.1 GM/DL (3.2-5.2); BILIRUBIN,TOTAL 0.5 MG/DL (0.2-1.0); C REACTIVE PROTEIN QUANTITATIV 13.7 MG/DL (0.00-0.30); CALCIUM LEVEL 8.3 MG/DL (8.8-10.2); CREATININE FOR GFR 7.04 MG/DL (0.70-1.30); GLOMERULAR FILTRATION RATE 8.5 (>49); MAGNESIUM LEVEL 1.9 MG/DL (1.8-2.4); POTASSIUM SERUM 4.5 MEQ/L (3.5-5.1); TOTAL PROTEIN 6.3 GM/DL (6.4-8.2)
[2018-04-18 10:10] VITALS: BP 115/61
[2018-04-18] MEDS: VITAMIN D 1,000 INTERNATIONAL UNITS TABLET PO SCH (10:10)
[2018-04-18] MEDS: CALCITRIOL 0.25 MCG CAP (S0169) PO SCH (10:10)
[2018-04-18] MEDS: CARVedilol 3.125 MG TAB PO SCH ×2 (10:10→21:28)
[2018-04-18] MEDS: DOCUSATE SODIUM 100 MG CAP PO SCH ×2 (10:10→21:28)
[2018-04-18] MEDS: CYANOCOBALAMIN 500 MCG TAB PO SCH ×3 (10:10→21:28)
[2018-04-18] MEDS: MIRALAX *UNIT DOSE* 17GM PACKET PO SCH ×2 (10:11→21:27)
[2018-04-18] MEDS: THIAMINE 100 MG TAB PO SCH (10:11)
[2018-04-18] MEDS: ENTRESTO 24-26MG TABLET (SACUBITRIL/VALSARTAN) PO SCH ×2 (10:11→21:28)
[2018-04-18] MEDS: ASPIRIN 81 MG ENTERIC TAB PO SCH (10:11)
[2018-04-18] MEDS: MIDODRINE 5 MG TAB PO SCH (10:11)
[2018-04-18] MEDS: FOLIC ACID 1 MG TAB PO SCH (10:11)
[2018-04-18] MEDS: HumaLOG INSULIN (NovoLOG) PER UNIT SC SCH ×4 (10:12→21:28)
[2018-04-18] MEDS: OXYMETAZOLINE NASAL SPRAY (AFRIN) SCH ×2 (10:12→21:30)
[2018-04-18] MEDS: SODIUM CHLORIDE NASAL 0.65% SPRAY BTL (OCEAN) SCH ×3 (10:13→21:29)
[2018-04-18] MEDS: predniSONE 2.5 MG TAB PO SCH (10:16)
[2018-04-18] MEDS ORDERED: HEPARIN 1,000 UNITS/ML 10ML VIAL (FOR RADIOLOGY& DIALYSIS ONLY) XX ONE (12:15)
[2018-04-18 14:00] VITALS: BP 87/51
[2018-04-18 14:41] VITALS: BP 97/59
--- NOTE | 2018-04-18 15:25 | IPNPDOC ---
Text Note Date of Service The patient was seen on 04/18/18. NOTE Subjective: Patient is a 62-year-old male with a PMHx of ESRD on HD (TTS), CAD s/p CABG / Stents (Hx of [place]), Systolic CHF, s/p PM, HTN, DLP, COPD, who presented to the ER with complaints of SOB. In the emergency room, patient was found to have fluid overload and was admitted to hospitalist service for further evaluation and treatment. Patient was seen and examined at the bedside. Patient has not experienced any nasal bleeding. Overnight, however, he does have dry blood within his nares. Denies any chest pain or palpitations. Notes that his shortness of breath with exertion is improving. Denies any significant cough. Denies abdominal pain, nausea, vomiting, diarrhea or constipation. Objective: Vitals (See below) General: Lying in bed, no acute distress, comfortable, AAOx3 HEENT: NC, AT CVS: RRR, +S1S2 Lungs: Fair air entry b/l, does not appear to be any evidence of rhonchi, rales or wheezing. Upon auscultation Abdomen: Soft, unchanged distention, without tenderness Extremities: LE still reveal trace/1+ edema b/l, - Calf tenderness Skin: Left forearm with area of erythema, warmth, tenderness - appears to be un changed Assessment and plan: Fluid overload - likely 2/2 acute decompensated systolic CHF / ESRD on HD (TTS) - Clinically has had improvement in his breathing - Physical with improving signs of fluid overload; appears to be approaching euvolemia - BNP significantly elevated - CXR 04/11: 1. Interstitial edema. 2. Cardiomegaly. - c/w HD - Nephrology (Dr. Alejo) on consultation; appreciate their input Pancytopenia [A]Normocytic anemia - likely 2/2 GI source possibly 2/2 epistaxis, possibly 2/2 ESRD - Patient is noted a history of hemorrhoidal bleeding / epistaxis - Hg has trended down from admission without IV fluids / intervention - H&H remains stable over last 24 hours - Reticulocyte count suppressed - Occult blood positive - s/p 3 units PRBC - Give recent stent placement and advanced cardiac history (29 stent placements); c/w ASA / Plavix - Dr. Chow on consult; appreciate his input; patient will pursue evaluation via EGD / Colonoscopy at a later time given recent cardiac intervention [B] Thrombocytopenia - Platelet counts still suppressed this morning despite transfusion - Hepatitis profile and HIV negative - Case has been discussed with ENT (Dr. Mcfadden); at this point, will continue with Afrin and saline nasal spray - s/p 2 units of platelets; will transfuse 2 additional units of platelets today - Will send for HIT antibody / FLORES workup - Considering holding Plavix - discussed with patient risks / benefits - will continue at this point [C] Leukopenia - Hepatitis profile / HIV negative - Peripheral smear 04/15: Negative - Will continue to monitor - Consulted Dr. De La Vega (Hematology); appreciate their input Left arm erythema / warmth / tenderness - possibly 2/2 cellulitis - s/p Febrile episode - Left arm with erythema, warmth and tenderness - appears relatively unchanged - No leukocytosis; no lactic acidosis - CRP improving - c/w Ceftaroline (Day #3) Abdominal distension - suspected to be 2/2 Ascites - US abdomen 04/13: No evidence of fluid - c/w HD s/p Left jaw pain - CT maxillofacial 04/14: Minimal mucosal thickening is present in the ethmoid and maxillary sinuses - Will have outpatient f/u with dentist CAD s/p CABG / Stents (Hx of [place]) - Patient has a history of 29 stent placements - Most recent stent was placed in January - Outpatient finish off operator is Dr. Alvarado - c/w ASA and Plavix s/p PM HTN - c/w Sacubitril / Valsartan, Carvedilol, - c/w Midodrine during HD sessions IDDM2 with Hypoglycemia - c/w Levemir and ISS DLP - c/w Pravastatin COPD - No evidence of exacerbation - c/w inhaled therapy as ordered Neuropathy - c/w Gabapentin Gout - c/w Febuxostat RLS - c/w Ropinirole RA - c/w Prednisone - Will hold Methotrexate GERD - c/w Protonix DVT prophylaxis - c/w SCDs Disposition: - Awaiting clinical improving - awaiting euvolemia - Oncology consultation VS,Natalia, I+O VS, Natalia, I+O Laboratory Tests 04/17/18 18:21 Red Blood Count 3.00 L, Mean Corpuscular Volume 93.7, Mean Corpuscular Hemoglobin 29.3, Mean Corpuscular Hemoglobin Concent 31.3 L, Red Cell Distribution Width 16.3 H, Neutrophils (%) (Auto) 92.1 H, Lymphocytes (%) (Auto) 6.0 L, Monocytes (%) (Auto) 0.8, Eosinophils (%) (Auto) 0.0, Basophils (%) (Auto) 0.0, Neutrophils # (Auto) 2.5, Lymphocytes # (Auto) 0.2 L, Monocytes # (Auto) 0.0, Eosinophils # (Auto) 0.0, Basophils # (Auto) 0.0 04/18/18 05:23 Red Blood Count 2.80 L, Mean Corpuscular Volume 92.9, Mean Corpuscular Hemoglobin 28.9, Mean Corpuscular Hemoglobin Concent 31.2 L, Red Cell Distribution Width 16.1 H, Neutrophils (%) (Auto) 83.0 H, Lymphocytes (%) (Auto) 14.9 L, Monocytes (%) (Auto) 1.4, Eosinophils (%) (Auto) 0.0, Basophils (%) (Auto) 0.0, Neutrophils # (Auto) 1.2 L, Lymphocytes # (Auto) 0.2 L, Monocytes # (Auto) 0.0, Eosinophils # (Auto) 0.0, Basophils # (Auto) 0.0, Calcium Level 8.3 L, Aspartate Amino Transf (AST/SGOT) 19, Alanine Aminotransferase (ALT/SGPT) 18, Alkaline Phosphatase 75, Total Bilirubin 0.5, Total Protein 6.3 L, Albumin 2.1 L Vital Signs Date Time Temp Pulse Resp B/P (MAP) Pulse Ox O2 Delivery O2 Flow Rate FiO2 04/18/18 14:41 97/59 (72) 04/18/18 14:00 98.2 68 18 90 04/18/18 06:00 NIPPV (BIPAP/CPAP) I&O- Last 24 Hours up to 6 AM 04/18/18 06:00 Intake Total 1551 ml Output Total 0 ml Balance 1551 ml MELISSA MCDANIEL MD Apr 18, 2018 15:25
[2018-04-18 19:29] VITALS: BP 125/64
[2018-04-18] MEDS: PRAVASTATIN 20 MG TAB PO SCH (21:27)
[2018-04-18] MEDS: rOPINIRole 1MG TAB PO SCH (21:27)
[2018-04-18] MEDS: CLOPIDOGREL 75 MG TAB PO SCH (21:27)
[2018-04-18] MEDS: GABAPENTIN 100 MG CAP PO SCH (21:27)
[2018-04-18] MEDS: FEBUXOSTAT 40 MG TABLET (ULORIC) PO SCH (21:28)
[2018-04-18] MEDS: SENNA 8.6 MG TAB (SENOKOT) PO SCH (21:28)
[2018-04-18] MEDS: LEVEMIR (INSULIN DETEMIR) 1 UNITS/0.01ML SC SCH (21:35)
[2018-04-18 22:00] VITALS: BP 102/56
--- NOTE | 2018-04-18 23:05 | IPN ---
DATE: 04/17/2018 SUBJECTIVE: The patient is seen and examined this morning, sitting at the edge of the bed. He is complaining of epistaxis this morning and he also complains of feeling some fullness and pain in his throat and in his left upper extremity at the site of PermCath. He denies shortness of breath at rest. He denies any further blood tinge bowel movement. His thrombocytopenia is worsening and he is receiving 2 units of platelet transfusion. VITAL SIGNS: Temperature 98.4, pulse 85, respiratory rate 18, blood pressure 114/57, saturating 98% on room air. Intake yesterday was 730. Dialysis yesterday removed 2500, negative 1870. Weight in the bed scale today is not recorded. GENERAL: The patient is seen sitting up at the edge of the bed, legs dangling, awake, alert, oriented times 3, comfortable and in no distress. There is some fresh blood on tissues by him from his epistasis, though I do not see any ongoing bleeding from his nares. Extraocular muscles are intact. His tongue is moist. There is no oral thrush, nor any pharyngeal exudates. Heart sounds are regular, S1, S2. There is a right internal jugular PermCath with erythema noted along the tunnel tract. The lungs are clear to auscultation. No rales or crackles or wheeze. His abdomen is soft and nontender. The extremities now show only at most trace edema. NEUROLOGIC: There is no focal deficit. He is oriented, interactive and conversational. PSYCHIATRIC: Appropriate mood and affect. LABORATORY: White count is 2.7, hemoglobin 8.8, hematocrit 44. Earlier this morning platelets 36. Sodium 135, potassium 4.4, bicarbonate 27, magnesium 1.8, C-reactive protein (CRP) 14. Microbiology: Blood cultures taken from the dialysis line showed no growth for 24 hours. The wound culture is pending. Venous Duplex in the upper extremities was negative for deep vein thrombosis (DVT). INPATIENT MEDICATIONS REVIEWED BY MYSELF: Note that the patient's Protonix has been switched to Pepcid and he is receiving aspirin, nasal spray. The remainder of the medications are unchanged from prior. PROBLEMS: 1. End-stage renal disease on hemodialysis. The patient has been receiving serial hemodialysis/ultrafiltration session for five days in a row. He is counseled regarding fluid restriction. His volume status has improved. His next dialysis treatment will be on Wednesday. He is receiving heparin-free dialysis in view of his worsening thrombocytopenia. 2. Thrombocytopenia. Platelet count this morning was down to 36. The patient received 2 units of platelet transfusion. He had some epistaxis this morning. He continues on aspirin and Plavix. He tells me his most recent coronary stent was in January of 2018. He receives heparin-free dialysis and I ordered a venous Duplex in view of the thrombocytopenia and the left arm pain to make sure that there is no deep vein thrombosis (DVT). 3. Left arm area of erythema and tenderness seems to be over the PermCath tunnel tract and blood cultures taken from the catheter with no growth for 24 hours. The wound culture is pending and he is on ceftaroline empirically. 4. Coronary artery disease (CAD), status post coronary artery bypass graft (CABG), history of myocardial infarction (HI) and history of 29 stents with most recent stent placed in January. He is on aspirin and Plavix and this is complicated by worsening thrombocytopenia. 5. Hypertension. Blood pressures are acceptable and I made no changes to his current regimen of low dose Entresto and carvedilol. Hypotension of hemodialysis complicates his dialysis treatments and hence he continues on midodrine for the same. 6. Anemia with recent gastrointestinal (GI) bleed, status post 3 units of packed red blood cells, has been seen by gastroenterology with intervention deferred given recent cardiac issues. His hemoglobin has been fluctuating between 8s and 9s and he continues on Aranesp. MTDD
[2018-04-18] MEDS: ACETAMINOPHEN TAB 650MG DOSE (2X325MG) PO PRN (23:59)
[2018-04-19] MEDS: FAMOTIDINE IV BAG 20 MG in APPROPRIATE DILUENT 1 EA IV SCH ×2 (01:15→12:49)
[2018-04-19] MEDS: CEFTAROLINE FOSAMIL 200 MG in D5W 50 ML IV SCH ×2 (02:00→15:39)
[2018-04-19 03:00] VITALS: BP 104/57
--- NOTE | 2018-04-19 03:31 | IPN ---
DATE OF SERVICE: 04/18/2018 SUBJECTIVE: The patient is seen and examined this morning sitting out of bed to the chair. He complains of oozing at the sites of attempted peripheral intravenous (IV) access placement and he complains of mild ongoing epistaxis and tenderness at the site of ecchymosis on the left forearm. I had a discussion with him today regarding his pancytopenia. VITAL SIGNS: Temperature 97.5, pulse 64, respiratory rate 17, blood pressure 102/57, saturating 97% on room air. Intake yesterday was 1400. Weight on the bed scale today is 80.2 kg. PHYSICAL EXAMINATION: GENERAL: The patient is seen awake, alert, and oriented, comfortable, sitting out of bed to the chair in no acute distress. HEENT: Extraocular muscles are intact. Tongue is moist, no oral thrush nor pharyngeal exudates. T NECK: There is a right internal jugular tunneled hemodialysis catheter and the tunnel site has some erythema and is tender. CARDIAC: S1, S2. Regular rate. There is an old midsternal healed scar. There is no edema in his legs. RESPIRATORY: Symmetric air entry bilaterally. No crackles or rales. ABDOMEN: The abdomen is somewhat distended and there is some mild edema in the flanks. It is nontender. MUSCULOSKELETAL: No clubbing or cyanosis. No edema in the peripheries. SKIN: He has some oozing along his right arm at the sites where there was attempted IV access and he has an erythematous rash on the left forearm. NEUROLOGIC: He is oriented, interactive and conversational. No focal deficits. LABORATORIES: White count 1.4, hemoglobin 8.1, platelets 26. Sodium 134, potassium 4.5, bicarbonate 27. MICROBIOLOGY: The wound culture taken from the dialysis line has no aerobic growth and the blood cultures taken from the dialysis line also have no growth. INPATIENT MEDICATIONS: Reviewed by myself and no change from prior. PROBLEMS: 1. End-stage renal disease on hemodialysis in the setting of systolic congestive heart failure. The patient had [id number] five dialysis treatments last week and he will be dialyzed again today with a goal fluid removal of 2 to 2.5 liters as tolerated by his hemodynamics. His volume status is improving. There is some erythema along the tunnel tract of his permacath. Blood cultures from the dialysis catheter show no growth and wound culture as well shows no growth. He continues on IV ceftaroline. A venous duplex of the upper extremities did not show any superficial thrombosed phlebitis nor deep vein thrombosis (DVT). 2. Pancytopenia. White count has fallen to 1.4, platelets are also low at less than 30,000. He does continue on aspirin and Plavix due to a recent coronary stent. In view of pancytopenia I recommend a hematology evaluation. He receives heparin-free dialysis and he continues on Aranesp with dialysis as well and Venofer with dialysis. 3. Systolic congestive heart failure acute on chronic. Volume status principally regulated by dialysis. Had five treatments [id number] last week. Will be dialyzed again today. In terms of heart failure, he also continues on Entresto and carvedilol, both at low doses in view of hypotension of hemodialysis he is also on midodrine. [facility]
[2018-04-19 06:00] VITALS: BP 100/52
[2018-04-19] MEDS: CYANOCOBALAMIN 500 MCG TAB PO SCH ×3 (06:21→21:24)
[2018-04-19] MEDS: predniSONE 2.5 MG TAB PO SCH (06:21)
[2018-04-19] MEDS: CALCITRIOL 0.25 MCG CAP (S0169) PO SCH (06:21)
[2018-04-19] MEDS: VITAMIN D 1,000 INTERNATIONAL UNITS TABLET PO SCH (06:21)
[2018-04-19] MEDS: DOCUSATE SODIUM 100 MG CAP PO SCH ×2 (06:21→21:25)
[2018-04-19] MEDS: ASPIRIN 81 MG ENTERIC TAB PO SCH (06:21)
[2018-04-19] MEDS: THIAMINE 100 MG TAB PO SCH (06:22)
[2018-04-19] MEDS: MIRALAX *UNIT DOSE* 17GM PACKET PO SCH ×2 (06:22→21:24)
[2018-04-19] MEDS: FOLIC ACID 1 MG TAB PO SCH (06:22)
[2018-04-19] MEDS: ENTRESTO 24-26MG TABLET (SACUBITRIL/VALSARTAN) PO SCH ×2 (06:22→21:25)
[2018-04-19] MEDS: CARVedilol 3.125 MG TAB PO SCH ×2 (06:22→21:27)
[2018-04-19] MEDS: SODIUM CHLORIDE NASAL 0.65% SPRAY BTL (OCEAN) SCH ×3 (06:23→21:26)
[2018-04-19] MEDS: OXYMETAZOLINE NASAL SPRAY (AFRIN) SCH ×2 (06:23→21:26)
[2018-04-19] MEDS: ONDANSETRON 4 MG TAB (S0181) PO PRN (06:24)
[2018-04-19 06:33] LABS: HEMATOCRIT 25.5 % (42.0-52.0); HEMOGLOBIN 7.9 g/dl (13.5-17.5); LYMPH % 13.3 % (24.0-44.0); MEAN CORPUSCULAR VOLUME 93.8 fl (80.0-96.0); MONO % 1.6 % (0.0-5.0); NEUTROPHILS # 1.1 10^3/uL (1.8-7.7); NEUTROPHILS % 84.3 % (36.0-66.0); RED BLOOD COUNT 2.72 10^6/uL (4.30-6.10)
[2018-04-19 06:36] LABS: LYMPH # 0.2 10^3/uL (1.5-4.5); PLATELET COUNT, AUTOMATED 32 10^3/uL (150-450); WHITE BLOOD COUNT 1.3 10^3/uL (4.0-10.0)
[2018-04-19 07:07] LABS: ALBUMIN 2.2 GM/DL (3.2-5.2); BILIRUBIN,TOTAL 0.5 MG/DL (0.2-1.0); C REACTIVE PROTEIN QUANTITATIV 11.6 MG/DL (0.00-0.30); CALCIUM LEVEL 8.2 MG/DL (8.8-10.2); CREATININE FOR GFR 5.08 MG/DL (0.70-1.30); GLOMERULAR FILTRATION RATE 12.4 (>49); POTASSIUM SERUM 4.3 MEQ/L (3.5-5.1); TOTAL PROTEIN 6.6 GM/DL (6.4-8.2)
[2018-04-19] MEDS: HumaLOG INSULIN (NovoLOG) PER UNIT SC SCH ×4 (07:12→21:26)
[2018-04-19 08:58] LABS: DRVV SCREEN 54.4 SEC
[2018-04-19 09:13] LABS: PTT LUPUS TYPE ANTICOAG SCREEN 1.3 (0-1.2)
[2018-04-19 09:20] LABS: DRVV CONFIRM 45.2 SEC; LUPUS CONFIRM RATIO 1.2
[2018-04-19 09:24] LABS: NORMALIZED RATIO 1.08 (0.00-1.20)
--- NOTE | 2018-04-19 10:15 | CR ---
DATE OF CONSULTATION: 04/18/2018 REASON FOR FOLLOWUP: Pancytopenia. HISTORY OF PRESENT ILLNESS (HPI): Mr. Clark is a 62-year-old male who is currently admitted for fluid overload. Since admission he has been feeling better in terms of his shortness of breath since he is on dialysis. He was noted by the hospitalist service to have pancytopenia and hematology was consulted for this. Mr. Clark reports that he has been feeling tired. He has not had any increased infections. He has had intermittent nasal bleeding, also noted to have guaiac positive stools. He is being considered for upper and lower endoscopy but has not been able to come off Plavix because of significant cardiac history and GI workup is on-hold at present. He is receiving a platelet transfusion today and he received packed cell transfusion four days ago. PAST MEDICAL HISTORY: 1. On hemodialysis since March 28, 2018. 2. Significant coronary artery disease with history of multiple myocardial infarctions. 3. Coronary artery bypass grafting (CABG) times two and multiple stent placements over the past 15 years. He was started on short term anticoagulation in 2014 when he developed atrial fibrillation of short duration. He was taken off anticoagulation after two months because of gastrointestinal (GI) bleed. 4. He also has a history of a stroke with left sided weakness previously. ALLERGIES: HYDRALAZINE AND CONTRAST MEDIA. FAMILY HISTORY: Positive coronary artery disease and strokes. CURRENT MEDICATIONS: - famotidine - oxymetazoline - ceftaroline - acetaminophen - Preparation-H ointment - Angelique LAX - docusate sodium - Senna - insulin detemir - iron - carvedilol - clopidogrel - febuxostat - gabapentin - pravastatin - ropinirole - Entresto - darbepoetin sayda - heparin for hemodialysis and port flushing - insulin - cobalamin - bisacodyl - nitroglycerin - ondansetron - simethicone - aspirin - vitamin D - midodrine - prednisone - thiamine - calcitriol - folic acid PHYSICAL EXAMINATION: GENERAL: He was lying comfortably in bed, not in distress. He had pinkish conjunctiva, anicteric sclera. No oral mucosal lesions. No palpable cervical nodes. LUNGS: Fair air entry but no rales, rhonchi, no wheezing. S1, S2 regular. ABDOMEN: Sort, nontender. No guarding. EXTREMITIES-No calf swelling, no calf tenderness, no pedal edema. IMPRESSION AND PLAN: Mr. Clark is a 62-year-old male with pancytopenia. He has had mild leukopenia since the day after his admission on April 12, 2018. His CBC today showed significantly lower white blood cell count of 1.4 but his absolute neutrophil count came back at 1.2 x 10/3/uL. His hemoglobin came back at 8.1 g/dL. Platelet count was 26 and he is receiving a platelet transfusion today. A peripheral smear review from three days ago showed normocytic anemia of chronic disease and thrombocytopenia, no significant morphologic abnormalities noted. He has had haptoglobin checked which was not decreased. He had normal LDH level. HIV test was negative. I discussed that pancytopenia can have different causes and we need to rule out an intrinsic bone marrow cause such as myelodysplastic syndrome (MDS). For this, he needs a bone marrow aspiration and biopsy which we will schedule shortly. I recommended transfusion support for significant anemia and thrombocytopenia. Thank you very much for this referral.
[2018-04-19 14:00] VITALS: BP 88/52
--- NOTE | 2018-04-19 14:22 | IPNPDOC ---
Text Note Date of Service The patient was seen on 04/19/18. NOTE Subjective: Patient seen and examined at bedside. No acute overnight events reported. Patient has no new medical complaints. Still has some epistaxis which he feels has somewhat improved. Objective: Vitals (See below) General: Lying in bed, no acute distress, comfortable, AAOx3 HEENT: NC, AT CVS: RRR, +S1S2, systolic murmur Lungs: Fair air entry b/l, does not appear to be any evidence of rhonchi, rales or wheezing. Upon auscultation Abdomen: Soft, unchanged distention, without tenderness Extremities: LE still reveal trace/1+ edema b/l, - Calf tenderness Skin: Left forearm with area of erythema, warmth, tenderness - appears to be unchanged A/P: Patient is a 62-year-old male with a PMHx of ESRD on HD (TTS), CAD s/p CABG / Stents (Hx of [place]), Systolic CHF, s/p PM, HTN, DLP, COPD, who presented to the ER with complaints of SOB. In the emergency room, patient was found to have fluid overload and was admitted to hospitalist service for further evaluation and treatment. #Fluid overload - likely 2/2 acute decompensated systolic CHF / ESRD on HD (TTS) - Clinically has had improvement in his breathing - appears to be approaching euvolemia - c/w HD - Nephrology on consultation - appreciate their input #Pancytopenia - heme c/s appreciated - plan for BM Bx tomorrow [A]Normocytic anemia - likely 2/2 GI source possibly 2/2 epistaxis, possibly 2/2 ESRD - Patient is noted a history of hemorrhoidal bleeding / epistaxis - Hg has trended down from admission without IV fluids / intervention - H&H remains stable over last 24 hours - Reticulocyte count suppressed - Occult blood positive - s/p 3 units PRBC - Give recent stent placement and advanced cardiac history (29 stent placements); c/w ASA / Plavix - Dr. Chow on consult; appreciate his input; patient will pursue evaluation via EGD / Colonoscopy at a later time given recent cardiac intervention [B] Thrombocytopenia - Platelet counts still suppressed this morning despite transfusion - Hepatitis profile and HIV negative - Case has been discussed with ENT (Dr. Mcfadden); at this point, will continue with Afrin and saline nasal spray - s/p 2 units of platelets; will transfuse 2 additional units of platelets today - Will send for HIT antibody / FLORES workup - Considering holding Plavix - discussed with patient risks / benefits - will continue at this point [C] Leukopenia - Hepatitis profile / HIV negative - Peripheral smear 04/15: Negative - Will continue to monitor #Left arm erythema / warmth / tenderness - possibly 2/2 cellulitis - s/p Febrile episode - Left arm with erythema, warmth and tenderness - appears relatively unchanged - No leukocytosis; no lactic acidosis - CRP improving - c/w Ceftaroline (Day #4) #Abdominal distension - suspected to be 2/2 Ascites - US abdomen 04/13: No evidence of fluid - c/w HD #s/p Left jaw pain - CT maxillofacial 04/14: Minimal mucosal thickening is present in the ethmoid and maxillary sinuses - Will have outpatient f/u with dentist #CAD s/p CABG / Stents (Hx of [place]) - Patient has a history of 29 stent placements, CABG x2 - Most recent stent was placed in January - Outpatient programmer engineering and scientific is Dr. Alvarado - interventionalist - Dr. Gonzales - request for old records - c/w ASA and Plavix #s/p PM #HTN - c/w Sacubitril / Valsartan, Carvedilol, - c/w Midodrine during HD sessions #IDDM2 with Hypoglycemia - c/w Levemir and ISS #DLP - c/w Pravastatin #COPD - No evidence of exacerbation - c/w inhaled therapy as ordered #Neuropathy - c/w Gabapentin #Gout - c/w Febuxostat #RLS - c/w Ropinirole #RA - c/w Prednisone - Will hold Methotrexate #GERD - c/w Protonix #DVT prophylaxis - c/w SCDs Disposition: - D/W heme, continue to monitor CVC, pending heme follow up, bone marrow biopsy, clinical improvement, euvolemia; extensive discussion with daughter Yisel [phone] VS,Natalia, I+O VS, Natalia, I+O Laboratory Tests 04/19/18 06:08 Calcium Level 8.2 L, Aspartate Amino Transf (AST/SGOT) 27, Alanine Aminotransferase (ALT/SGPT) 23, Alkaline Phosphatase 90, Total Bilirubin 0.5, Total Protein 6.6, Albumin 2.2 L 04/19/18 06:09 Red Blood Count 2.72 L, Mean Corpuscular Volume 93.8, Mean Corpuscular Hemoglobin 29.0, Mean Corpuscular Hemoglobin Concent 31.0 L, Red Cell Di stribution Width 16.1 H, Neutrophils (%) (Auto) 84.3 H, Lymphocytes (%) (Auto) 13.3 L, Monocytes (%) (Auto) 1.6, Eosinophils (%) (Auto) 0.0, Basophils (%) (Auto) 0.0, Neutrophils # (Auto) 1.1 L, Lymphocytes # (Auto) 0.2 L, Monocytes # (Auto) 0.0, Eosinophils # (Auto) 0.0, Basophils # (Auto) 0.0 Vital Signs Date Time Temp Pulse Resp B/P (MAP) Pulse Ox O2 Delivery O2 Flow Rate FiO2 04/19/18 06:22 76 100/50 04/19/18 06:00 98.2 17 99 Room Air I&O- Last 24 Hours up to 6 AM 04/19/18 06:00 Intake Total 1125 ml Output Total 2700 ml Balance -1575 ml LEO SPAIN MD Apr 19, 2018 14:21
[2018-04-19 15:12] LABS: HEMATOCRIT 26.8 % (42.0-52.0); HEMOGLOBIN 8.2 g/dl (13.5-17.5); MEAN CORPUSCULAR HEMOGLOBIN 29.2 pg (27.0-33.0); MEAN CORPUSCULAR HGB CONC 30.6 g/dl (32.0-36.5); MEAN CORPUSCULAR VOLUME 95.4 fl (80.0-96.0); RED BLOOD COUNT 2.81 10^6/uL (4.30-6.10)
[2018-04-19 15:13] LABS: WHITE BLOOD COUNT 1.3 10^3/uL (4.0-10.0)
[2018-04-19 15:15] LABS: PLATELET COUNT, AUTOMATED 24 10^3/uL (150-450)
[2018-04-19] MEDS: PREPARATION H OINTMENT (HEMORRHOID) PR PRN (15:42)
[2018-04-19 18:22] VITALS: BP 115/57
[2018-04-19 19:02] LABS: HEMATOCRIT 27.4 % (42.0-52.0); HEMOGLOBIN 8.3 g/dl (13.5-17.5)
--- NOTE | 2018-04-19 19:22 | ECGEPIP ---
Stationary ECG Study [facility] Test Date: 2018-04-18 Pat Name: NICHOLAS WAKEFIELD Department: Room: [place] [address] Gender: M [employer]: : 1955 Requested By: ASAD WEDNESDAY Order Number: [id number] Reading MD: Sergo Khan Measurements Intervals [place] Rate: 81 P: 30 CT: 155 QRS: 35 QRSD: 99 T: -74 QT: 344 QTc: 400 Interpretive Statements Normal sinus rhythm Low QRS complex voltage in the limb leads Nonspecific ST-T wave abnormalities Compared to prior tracing of 04/11/2018, there has been significant loss of QRS voltage in the limb leads, and repolarization abnormalities in the anterior leads have increased Electronically Signed On 04-19-2018 19:21:51 EST by Sergo Khan
--- NOTE | 2018-04-19 19:46 | REP ---
PORTABLE CHEST: AP portable view of the chest is performed and compared to prior study of 04/16/2018. There is mild cardiomegaly, unchanged. Mediastinal silhouette is unchanged. Linear interstitial densities in the left mid lung zone are unchanged compatible with fibroatelectasis. There is no acute infiltrate or pulmonary edema. Right central venous catheter is again noted unchanged. Left pacemaker is again noted as well as multiple sternal wires and mediastinal clips. IMPRESSION: Stable exam. Electronically Signed by Hemal Gilbert MD 04/19/2018 07:56 P
[2018-04-19] MEDS: PRAVASTATIN 20 MG TAB PO SCH (21:24)
[2018-04-19] MEDS: CLOPIDOGREL 75 MG TAB PO SCH (21:25)
[2018-04-19] MEDS: LEVEMIR (INSULIN DETEMIR) 1 UNITS/0.01ML SC SCH (21:25)
[2018-04-19] MEDS: FEBUXOSTAT 40 MG TABLET (ULORIC) PO SCH (21:25)
[2018-04-19] MEDS: SENNA 8.6 MG TAB (SENOKOT) PO SCH (21:25)
[2018-04-19] MEDS: GABAPENTIN 100 MG CAP PO SCH (21:25)
[2018-04-19] MEDS: rOPINIRole 1MG TAB PO SCH (21:25)
[2018-04-19 22:00] VITALS: BP 90/50
--- NOTE | 2018-04-19 22:23 | IPN ---
DATE: 04/19/2018 SUBJECTIVE: Patient was seen and examined this morning lying in bed. He is in poor spirits. He is still having some mild epistaxis, and he complains of nasal congestion and a feeling of clogged ears and tenderness in his throat when he swallows. VITAL SIGNS: Temperature 98.2, pulse 73, respiratory rate 17, blood pressure 100/52, saturating 99% on room air. Intake yesterday was 1125. Dialysis yesterday removed 2500. Urine output yesterday was 150. Net negative 1525. Weight on the bed scale today is 79.3 kg, which is decreased from prior. General: The patient is seen lying in bed in no acute distress, awake, alert, and comfortable appearing. Extraocular muscles are intact. Tongue is moist. He has some cotton packing in the right naris. There is no oral thrush or pharyngeal exudates. There is some dentition issues. The right tunneled hemodialysis catheter has erythema along the tunneled tract. Cardiac: S1, S2, regular rate. Old mid sternal healed scar. No edema in his legs. Lungs: Symmetric air entry bilaterally. No crackles or rales. Abdomen: Somewhat distended. There is mild edema in the flank, otherwise nontender. No rebound or guarding. Musculoskeletal. No edema in the peripheries. He has some scattered ecchymosis and a tender rash on the left forearm. Neurologic: He is oriented, interactive and conversational. No focal deficits. LABORATORY: White count 1.3, hemoglobin 8.3, platelets 24. Sodium 135, potassium 4.3, bicarbonate 29, magnesium 2.0, CRP 11. Chest x-ray, 04/19/2018: No acute infiltrate nor pulmonary edema. INPATIENT MEDICATIONS: Reviewed by myself and no change from prior. PROBLEMS: 1. End-stage renal disease, on hemodialysis in the setting of systolic congestive heart failure. Patient was dialyzed yesterday with 2.5 liters removed. Tolerated his treatment without issue. He had five back to back treatments last week. His daily weights are down trending. He is comfortable on room air. He will be dialyzed again tomorrow with goal fluid removal of 2-1/2 liters as tolerated by his hemodynamics. 2. Tunnel tract infection of the right internal jugular (IJ) PermCath. Patient continues on IV ceftaroline. He has been afebrile. His white count is low because he is pancytopenic, which may be why the tunnel tract infection is not improving. His wound culture and blood cultures have been negative. Because he is thrombocytopenic, I do not think it is the proper time for a catheter exchange. We will clinically monitor the tunnel tract infection and continue ceftaroline. His CRP is down trending. 3. Pancytopenia. White count is 1.3, platelets are around 25,000 and hemoglobin is in the 8s. He continues on aspirin and Plavix due to recent coronary stent. He has been receiving heparin-free dialysis. I have also instructed the dialysis nurse now to lock his catheter with only saline instead of heparin. The heparin lock to the catheter does not have any systemic effect; however, out of abundance of precaution, we will switch to saline instead. Hopefully it will not interfere with his catheter use. He also continues on Aranesp with dialysis and Venofer. He has been evaluated by hematology, and he is for bone marrow biopsy tomorrow. I suggest Neupogen use for his leukopenia and defer to Dr. De La Vega. And I will plan to give him one unit of packed red blood cells with dialysis tomorrow. 4. Systolic congestive heart failure, acute on chronic. Volume status principally regulated by dialysis. Daily weights are down trending. He will be dialyzed again tomorrow. Goal fluid removal 2.5 liters. Continues on Entresto and carvedilol in view of systolic cardiomyopathy and in view of hypotension of hemodialysis, he is also on midodrine. 5. Multiple ear, nose throat (ENT) complaints. Patient complains of tenderness in throat when swallowing, complains of clogged ears, complains of odynophagia, nasal issues. I will defer further evaluation to the hospitalist service. JERMAIN
[2018-04-20 00:22] LABS: HEMATOCRIT 26.1 % (42.0-52.0)
[2018-04-20] MEDS: ONDANSETRON 4 MG TAB (S0181) PO PRN (01:14)
[2018-04-20] MEDS: FAMOTIDINE IV BAG 20 MG in APPROPRIATE DILUENT 1 EA IV SCH ×2 (01:15→14:30)
[2018-04-20] MEDS: CEFTAROLINE FOSAMIL 200 MG in D5W 50 ML IV SCH ×2 (02:10→14:31)
[2018-04-20 03:45] VITALS: BP 91/50
[2018-04-20 06:00] VITALS: BP 94/52
[2018-04-20] MEDS: predniSONE 2.5 MG TAB PO SCH (06:27)
[2018-04-20] MEDS: ASPIRIN 81 MG ENTERIC TAB PO SCH (06:27)
[2018-04-20] MEDS: ENTRESTO 24-26MG TABLET (SACUBITRIL/VALSARTAN) PO SCH ×2 (06:27→21:10)
[2018-04-20] MEDS: CALCITRIOL 0.25 MCG CAP (S0169) PO SCH (06:27)
[2018-04-20] MEDS: FOLIC ACID 1 MG TAB PO SCH (06:27)
[2018-04-20] MEDS: VITAMIN D 1,000 INTERNATIONAL UNITS TABLET PO SCH (06:28)
[2018-04-20] MEDS: DOCUSATE SODIUM 100 MG CAP PO SCH ×2 (06:28→21:10)
[2018-04-20] MEDS: THIAMINE 100 MG TAB PO SCH (06:28)
[2018-04-20] MEDS: MIDODRINE 5 MG TAB PO SCH (06:28)
[2018-04-20] MEDS: OXYMETAZOLINE NASAL SPRAY (AFRIN) SCH ×2 (06:29→21:23)
[2018-04-20] MEDS: CYANOCOBALAMIN 500 MCG TAB PO SCH ×3 (06:29→21:22)
[2018-04-20] MEDS: CARVedilol 3.125 MG TAB PO SCH ×2 (06:29→21:00)
[2018-04-20] MEDS: SODIUM CHLORIDE NASAL 0.65% SPRAY BTL (OCEAN) SCH ×3 (06:29→21:00)
[2018-04-20] MEDS: MIRALAX *UNIT DOSE* 17GM PACKET PO SCH ×2 (06:30→21:00)
[2018-04-20 06:45] LABS: C REACTIVE PROTEIN QUANTITATIV 10.9 MG/DL (0.00-0.30)
[2018-04-20] MEDS: HumaLOG INSULIN (NovoLOG) PER UNIT SC SCH ×4 (07:30→21:00)
[2018-04-20 07:33] LABS: HEMATOCRIT 24.1 % (42.0-52.0); HEMOGLOBIN 7.5 g/dl (13.5-17.5); MEAN CORPUSCULAR HEMOGLOBIN 29.4 pg (27.0-33.0); MEAN CORPUSCULAR HGB CONC 31.1 g/dl (32.0-36.5); MEAN CORPUSCULAR VOLUME 94.5 fl (80.0-96.0); RED BLOOD COUNT 2.55 10^6/uL (4.30-6.10)
[2018-04-20 07:38] LABS: WHITE BLOOD COUNT 1.6 10^3/uL (4.0-10.0)
[2018-04-20 07:39] LABS: ALBUMIN 2.3 GM/DL (3.2-5.2); BILIRUBIN,TOTAL 0.4 MG/DL (0.2-1.0); CALCIUM LEVEL 8.4 MG/DL (8.8-10.2); CREATININE FOR GFR 6.75 MG/DL (0.70-1.30); POTASSIUM SERUM 4.7 MEQ/L (3.5-5.1); TOTAL PROTEIN 6.2 GM/DL (6.4-8.2)
[2018-04-20 07:40] LABS: PLATELET COUNT, AUTOMATED 19 10^3/uL (150-450)
[2018-04-20 08:07] LABS: EOSINOPHILS 5 % (0-5); LYMPHOCYTES 9 % (16-52); NEUTROPHILS 86 % (35-75); PLATELET ESTIMATE MARKED DECREASE (NORMAL)
[2018-04-20] MEDS ORDERED: LIDOCAINE 2% MDV 20 ML VIAL XX ONE (09:30)
[2018-04-20 15:53] VITALS: BP 109/52
[2018-04-20 18:25] LABS: HEMATOCRIT 34.5 % (42.0-52.0)
[2018-04-20 20:00] VITALS: BP 104/58
[2018-04-20] MEDS: CLOPIDOGREL 75 MG TAB PO SCH (21:09)
[2018-04-20] MEDS: PRAVASTATIN 20 MG TAB PO SCH (21:09)
[2018-04-20] MEDS: LEVEMIR (INSULIN DETEMIR) 1 UNITS/0.01ML SC SCH (21:09)
[2018-04-20] MEDS: GABAPENTIN 100 MG CAP PO SCH (21:09)
[2018-04-20] MEDS: rOPINIRole 1MG TAB PO SCH (21:10)
[2018-04-20] MEDS: SENNA 8.6 MG TAB (SENOKOT) PO SCH (21:10)
--- NOTE | 2018-04-20 21:15 | IPN ---
DATE: 04/20/2018 SUBJECTIVE: Solitario was seen and examined this morning on hemodialysis receiving his treatment. He complains of feeling light headed and dizzy overnight when he was getting up to go to the bathroom. He also felt nauseous. His blood pressures have been soft this morning in the 90's and remain about the same on hemodialysis. He is scheduled for bone marrow biopsy this afternoon. He denies shortness of breath at rest and he is receiving 2 units of packed red blood cell with dialysis today. VITAL SIGNS: Temperature 97.1, pulse 70, respiratory rate 21, blood pressure 94/52, saturating 95% on room air. Intake yesterday was 1000. Dialysis today removed 1400. Weight in the bed scale today is not recorded. GENERAL: Patient seen on dialysis awake, alert no distress but the fatigued and chronically ill-appearing. Extraocular muscles are intact. Tongue is moist. He has some dried blood on his naris. There is no oral thrush or pharyngeal exudates. The right tunneled hemodialysis catheter has erythema along the tunnel tract. There is no discharge from the catheter site. CARDIAC: S1, S2 regular rate. Old midsternal healed scar. No edema in his legs. LUNGS: Symmetric air entry. No crackles or rales. ABDOMEN: Soft, mildly distended. There is some edema in the flank, otherwise nontender. No rebound or guarding. MUSCULOSKELETAL: No edema in the periphery. He has scattered ecchymosis on his arms. NEUROLOGIC: He is oriented, interactive and conversational. No focal deficits. LABS: White count 1.6, hemoglobin 10.5, platelets 19, sodium 136, potassium 4.7, bicarbonate 28, CRP 10. INPATIENT MEDICATIONS: I added holding parameters to his Entresto. He continues on IV ceftaroline. Remainder of the medications are unchanged from prior. PROBLEMS: 1. End-stage renal disease on hemodialysis in the setting of systolic congestive heart failure. We have to back down on his fluid removal goal today because his systolic on dialysis was in the low 90's, actually his systolic has been in the low 90's overnight as well. The patient complained of dizziness and lightheadedness when he had ambulated to the bathroom and he complained of nausea. There is already holding parameters with his carvedilol. I am adding holding parameters to the Entresto as well and he continues on Midodrine pre-dialysis for blood pressure support. 2. Tunnel tract infection of right IJ Perm-A-Cath. He continues on IV ceftaroline. He has been afebrile. Clinically the erythema persists likely due to his leukopenia. Blood cultures and wound culture have been negative. There is no discharge from the catheter. He is severe thrombocytopenic so at present I will hold off on catheter exchange. I suggest administration of Neupogen and deferred to hematology. His CRP is downtrending. 3. Pancytopenia. White count is 1.6, hemoglobin 7.5 and platelets 19. He is for bone marrow biopsy this afternoon. He is receiving 2 units of packed red blood cells with dialysis today. He continues on aspirin and Plavix due to recent coronary stent. He has been receiving Heparin free dialysis. We are locking his catheter with saline. He continues on Aranesp for dialysis and Venofer. I then suggest Neupogen use for the leukopenia. 4. Systolic congestive heart failure, acute on chronic. Mildly hypervolemic on exam. He could not tolerate the goal fluid removal due to hypotension of hemodialysis. Continue Midodrine. Holding parameter with Entresto and carvedilol and continue fluid restriction. 5. Coronary artery disease, severe and complicates his care. History of 29 stent, most recent stent was in January. Continue the low dose aspirin and plavix and statin. MTDD
[2018-04-20] MEDS: FEBUXOSTAT 40 MG TABLET (ULORIC) PO SCH (21:22)
[2018-04-21] VITALS (7 sets, daily range): BP systolic 94–118; BP diastolic 51–70
[2018-04-21] MEDS: FAMOTIDINE IV BAG 20 MG in APPROPRIATE DILUENT 1 EA IV SCH ×2 (01:57→16:50)
[2018-04-21] MEDS: CEFTAROLINE FOSAMIL 200 MG in D5W 50 ML IV SCH ×2 (03:03→16:50)
[2018-04-21 06:34] LABS: C REACTIVE PROTEIN QUANTITATIV 10.4 MG/DL (0.00-0.30); CALCIUM LEVEL 8.5 MG/DL (8.8-10.2); CREATININE FOR GFR 4.72 MG/DL (0.70-1.30); GLOMERULAR FILTRATION RATE 13.5 (>49)
[2018-04-21 06:54] LABS: BASO % 0.7 % (0.0-1.0); HEMATOCRIT 29.7 % (42.0-52.0); HEMOGLOBIN 9.6 g/dl (13.5-17.5); LYMPH % 14.5 % (24.0-44.0); MEAN CORPUSCULAR HGB CONC 32.3 g/dl (32.0-36.5); MEAN CORPUSCULAR VOLUME 92.8 fl (80.0-96.0); MONO % 2.9 % (0.0-5.0); NEUTROPHILS # 1.1 10^3/uL (1.8-7.7); NEUTROPHILS % 81.9 % (36.0-66.0)
[2018-04-21 07:20] LABS: WHITE BLOOD COUNT 1.4 10^3/uL (4.0-10.0)
[2018-04-21 07:21] LABS: LYMPH # 0.2 10^3/uL (1.5-4.5); PLATELET COUNT, AUTOMATED 17 10^3/uL (150-450)
--- NOTE | 2018-04-21 07:59 | IPNPDOC ---
Text Note Date of Service The patient was seen on 04/20/18. NOTE Subjective: Patient seen and examined at bedside. No acute overnight events reported. Patient has no new medical complaints. Still has some epistaxis which he feels has somewhat improved. Objective: Vitals (See below) General: Lying in bed, no acute distress, comfortable, AAOx3 HEENT: NC, AT CVS: RRR, +S1S2, systolic murmur Lungs: Fair air entry b/l, does not appear to be any evidence of rhonchi, rales or wheezing. Upon auscultation Abdomen: Soft, unchanged distention, without tenderness Extremities: LE still reveal trace/1+ edema b/l, - Calf tenderness Skin: Left forearm with area of erythema, warmth, tenderness - appears to be unchanged A/P: Patient is a 62-year-old male with a PMHx of ESRD on HD (TTS), CAD s/p CABG / Stents (Hx of [place]), Systolic CHF, s/p PM, HTN, DLP, COPD, who presented to the ER with complaints of SOB. In the emergency room, patient was found to have fluid overload and was admitted to hospitalist service for further evaluation and treatment. #Fluid overload - likely 2/2 acute decompensated systolic CHF / ESRD on HD (TTS) - Clinically has had improvement in his breathing - appears to be approaching euvolemia - c/w HD - Nephrology on consultation - appreciate their input #Pancytopenia - heme c/s appreciated - plan for BM Bx tomorrow [A]Normocytic anemia - likely 2/2 GI source possibly 2/2 epistaxis, possibly 2/2 ESRD - Patient is noted a history of hemorrhoidal bleeding / epistaxis - Hg has trended down from admission without IV fluids / intervention - H&H remains stable over last 24 hours - Reticulocyte count suppressed - Occult blood positive - s/p 3 units PRBC - Give recent stent placement and advanced cardiac history (29 stent placements); c/w ASA / Plavix - Dr. Chow on consult; appreciate his input; patient will pursue evaluation via EGD / Colonoscopy at a later time given recent cardiac intervention [B] Thrombocytopenia - Platelet counts still suppressed this morning despite transfusion - Hepatitis profile and HIV negative - Case has been discussed with ENT (Dr. Mcfadden); at this point, will continue with Afrin and saline nasal spray - s/p 2 units of platelets; will transfuse 2 additional units of platelets today - Will send for HIT antibody / FLORES workup - Considering holding Plavix - discussed with patient risks / benefits - will continue at this point [C] Leukopenia - Hepatitis profile / HIV negative - Peripheral smear 04/15: Negative - Will continue to monitor #Left arm erythema / warmth / tenderness - possibly 2/2 cellulitis - s/p Febrile episode - Left arm with erythema, warmth and tenderness - appears relatively unchanged - No leukocytosis; no lactic acidosis - CRP improving - c/w Ceftaroline (Day #4) #Abdominal distension - suspected to be 2/2 Ascites - US abdomen 04/13: No evidence of fluid - c/w HD #s/p Left jaw pain - CT maxillofacial 04/14: Minimal mucosal thickening is present in the ethmoid and maxillary sinuses - Will have outpatient f/u with dentist #CAD s/p CABG / Stents (Hx of [place]) - Patient has a history of 29 stent placements, CABG x2 - Most recent stent was placed in January - Outpatient shank maker is Dr. Alvarado - interventionalist - Dr. Gonzales - request for old records - c/w ASA and Plavix #s/p PM #HTN - c/w Sacubitril / Valsartan, Carvedilol, - c/w Midodrine during HD sessions #IDDM2 with Hypoglycemia - c/w Levemir and ISS #DLP - c/w Pravastatin #COPD - No evidence of exacerbation - c/w inhaled therapy as ordered #Neuropathy - c/w Gabapentin #Gout - c/w Febuxostat #RLS - c/w Ropinirole #RA - c/w Prednisone - Will hold Methotrexate #GERD - c/w Protonix #DVT prophylaxis - c/w SCDs Disposition: - D/W nephro; d/w [facility] for transfer - no beds available, d/w [facility] - transfer denied; continue to monitor CBC, f/u bone marrow biopsy, clinical improvement, euvolemia; extensive discussion with daughter Yisel [phone] VS,Fishbone, I+O VS, Fishbone, I+O Laboratory Tests 04/20/18 18:13 04/21/18 06:00 Calcium Level 8.5 L 04/21/18 06:39 Red Blood Count 3.20 L, Mean Corpuscular Volume 92.8, Mean Corpuscular Hemoglobin 30.0, Mean Corpuscular Hemoglobin Concent 32.3, Red Cell Distribution Width 16.1 H, Neutrophils (%) (Auto) 81.9 H, Lymphocytes (%) (Auto) 14.5 L, Monocytes (%) (Auto) 2.9, Eosinophils (%) (Auto) 0.0, Basophils (%) (Auto) 0.7, Neutrophils # (Auto) 1.1 L, Lymphocytes # (Auto) 0.2 L, Monocytes # (Auto) 0.0, Eosinophils # (Auto) 0.0, Basophils # (Auto) 0.0 Vital Signs Date Time Temp Pulse Resp B/P (MAP) Pulse Ox O2 Delivery O2 Flow Rate FiO2 04/21/18 04:00 97.6 93 18 108/59 (75) 93 Room Air I&O- Last 24 Hours up to 6 AM 04/21/18 06:00 Intake Total 960 ml Output Total 1400 ml Balance -440 ml LEO SPAIN MD Apr 21, 2018 07:59
--- NOTE | 2018-04-21 08:04 | IPNPDOC ---
Text Note Date of Service The patient was seen on 04/21/18. NOTE Subjective: Patient seen and examined at bedside. No acute overnight events reported. Patient has no new medical complaints. Still has some epistaxis which he feels has somewhat improved. Objective: Vitals (See below) General: Lying in bed, no acute distress, comfortable, AAOx3 HEENT: NC, AT, cotton swab in right nares CVS: RRR, +S1S2, systolic murmur Lungs: CTA B/L Abdomen: soft, NT, +BS, mild distention Extremities: trace peripheral edema A/P: Patient is a 62-year-old male with a PMHx of ESRD on HD (TTS), CAD s/p CABG / Stents (Hx of [place]), Systolic CHF, s/p PM, HTN, DLP, COPD, who presented to the ER with complaints of SOB. In the emergency room, patient was found to have fluid overload and was admitted to hospitalist service for further evaluation and treatment. #Fluid overload - likely 2/2 acute decompensated systolic CHF / ESRD on HD (TTS) - appears to be approaching euvolemia - c/w HD - Nephrology on consultation - appreciate their input #Pancytopenia - heme c/s appreciated - f/u BM Bx [A] ANEMIA - Reticulocyte count suppressed - Occult blood positive - s/p 5 units PRBC - Given very recent stent placement and advanced cardiac history (29 stent placements); c/w ASA / Plavix - Dr. Chow on consult; appreciate his input; patient will pursue evaluation via EGD / Colonoscopy at a later time given recent cardiac intervention [B] Thrombocytopenia - Platelet counts still suppressed this morning despite transfusion - Hepatitis profile and HIV negative - Case has been discussed with ENT (Dr. Mcfadden); at this point, will continue with Afrin and saline nasal spray - s/p 6 units of platelets - Will send for HIT antibody / FLORES workup [C] Leukopenia - Hepatitis profile / HIV negative - Peripheral smear 04/15: Negative - Will continue to monitor #Left arm erythema / warmth / tenderness - possibly 2/2 cellulitis - s/p Febrile episode - Left arm with erythema, warmth and tenderness - appears relatively unchanged - No leukocytosis; no lactic acidosis - CRP improving - c/w Ceftaroline (Day #6) #Abdominal distension - suspected to be 2/2 Ascites - US abdomen 04/13: No evidence of fluid - c/w HD #s/p Left jaw pain - CT maxillofacial 04/14: Minimal mucosal thickening is present in the ethmoid and maxillary sinuses - Will have outpatient f/u with dentist #CAD s/p CABG / Stents (Hx of [place]) - Patient has a history of 29 stent placements, CABG x2 - Most recent stent was placed in January - Outpatient wood grinder is Dr. Alvarado - interventionalist - Dr. Gonzales - request for old records still pending - c/w ASA and Plavix #s/p PM #HTN - c/w Sacubitril / Valsartan, Carvedilol, - c/w Midodrine during HD sessions #IDDM2 with Hypoglycemia - c/w Levemir and ISS #DLP - c/w Pravastatin #COPD - No evidence of exacerbation - c/w inhaled therapy as ordered #Neuropathy - c/w Gabapentin #Gout - c/w Febuxostat #RLS - c/w Ropinirole #RA - c/w Prednisone - Will hold Methotrexate #GERD - c/w Protonix #DVT prophylaxis - c/w SCDs Disposition: - d/w [facility] for transfer - no beds available, d/w [facility] - transfer denied; continue to monitor CBC, f/u bone marrow biopsy, clinical improvement, euvolemia; heme follow up; extensive discussion with daughter Yisel García [phone] VS,Fishbone, I+O VS, Fishbone, I+O Laboratory Tests 04/20/18 18:13 04/21/18 06:00 Calcium Level 8.5 L 04/21/18 06:39 Red Blood Count 3.20 L, Mean Corpuscular Volume 92.8, Mean Corpuscular Hemoglobin 30.0, Mean Corpuscular Hemoglobin Concent 32.3, Red Cell Distribution Width 16.1 H, Neutrophils (%) (Auto) 81.9 H, Lymphocytes (%) (Auto) 14.5 L, Monocytes (%) (Auto) 2.9, Eosinophils (%) (Auto) 0.0, Basophils (%) (Auto) 0.7, Neutrophils # (Auto) 1.1 L, Lymphocytes # (Auto) 0.2 L, Monocytes # (Auto) 0.0, Eosinophils # (Auto) 0.0, Basophils # (Auto) 0.0 Vital Signs Date Time Temp Pulse Resp B/P (MAP) Pulse Ox O2 Delivery O2 Flow Rate FiO2 04/21/18 04:00 97.6 93 18 108/59 (75) 93 Room Air I&O- Last 24 Hours up to 6 AM 04/21/18 06:00 Intake Total 960 ml Output Total 1400 ml Balance -440 ml LEO SPAIN MD Apr 21, 2018 08:04
[2018-04-21] MEDS: HumaLOG INSULIN (NovoLOG) PER UNIT SC SCH ×4 (08:21→21:00)
[2018-04-21] MEDS: CARVedilol 3.125 MG TAB PO SCH ×2 (08:51→21:00)
[2018-04-21] MEDS: ENTRESTO 24-26MG TABLET (SACUBITRIL/VALSARTAN) PO SCH ×2 (08:52→21:00)
[2018-04-21] MEDS: SODIUM CHLORIDE NASAL 0.65% SPRAY BTL (OCEAN) SCH ×3 (08:59→21:00)
[2018-04-21] MEDS: ASPIRIN 81 MG ENTERIC TAB PO SCH (08:59)
[2018-04-21] MEDS: ONDANSETRON 4 MG TAB (S0181) PO PRN (08:59)
[2018-04-21] MEDS: VITAMIN D 1,000 INTERNATIONAL UNITS TABLET PO SCH (09:00)
[2018-04-21] MEDS: predniSONE 2.5 MG TAB PO SCH (09:00)
[2018-04-21] MEDS: CALCITRIOL 0.25 MCG CAP (S0169) PO SCH (09:00)
[2018-04-21] MEDS: DOCUSATE SODIUM 100 MG CAP PO SCH ×2 (09:01→21:31)
[2018-04-21] MEDS: THIAMINE 100 MG TAB PO SCH (09:01)
[2018-04-21] MEDS: CYANOCOBALAMIN 500 MCG TAB PO SCH ×3 (09:01→21:34)
[2018-04-21] MEDS: MIRALAX *UNIT DOSE* 17GM PACKET PO SCH ×2 (09:01→21:00)
[2018-04-21] MEDS: FOLIC ACID 1 MG TAB PO SCH (09:01)
[2018-04-21] MEDS: OXYMETAZOLINE NASAL SPRAY (AFRIN) SCH ×2 (09:02→21:35)
[2018-04-21] MEDS ORDERED: MIDODRINE 5 MG TAB PO ONE (12:30)
[2018-04-21 18:14] LABS: HEMATOCRIT 28.9 % (42.0-52.0); HEMOGLOBIN 9.4 g/dl (13.5-17.5); MEAN CORPUSCULAR HEMOGLOBIN 30.1 pg (27.0-33.0); MEAN CORPUSCULAR HGB CONC 32.5 g/dl (32.0-36.5); MEAN CORPUSCULAR VOLUME 92.6 fl (80.0-96.0); RED BLOOD COUNT 3.12 10^6/uL (4.30-6.10)
[2018-04-21 18:17] LABS: PLATELET COUNT, AUTOMATED 37 10^3/uL (150-450); WHITE BLOOD COUNT 0.9 10^3/uL (4.0-10.0)
[2018-04-21 19:12] LABS: BASO % 1.1 % (0.0-1.0); LYMPH % 20.7 % (24.0-44.0); MONO % 3.3 % (0.0-5.0); NEUTROPHILS % 73.8 % (36.0-66.0)
[2018-04-21 19:29] LABS: LYMPH # 0.2 10^3/uL (1.5-4.5); NEUTROPHILS # 0.7 10^3/uL (1.8-7.7)
[2018-04-21] MEDS: FILGRASTIM 480 MCG/0.8 ML SYRINGE (J1442) SC SCH (21:27)
--- NOTE | 2018-04-21 21:29 | IPN ---
DATE: 04/21/2018 SUBJECTIVE: Patient seen and examined this morning at the bedside. He had his bone marrow biopsy yesterday. He is still having some epistaxis. His blood pressure was soft yesterday and we could not take much fluid off on dialysis. He received a dose of Midodrine this afternoon and will be dialyzed again and will receive two units of platelets with dialysis today. VITAL SIGNS: Temperature 98.1, pulse 87, respiratory rate 18, blood pressure 118/70 saturating 97% on room air. Intake yesterday was 1070, dialysis yesterday was 1400. Net negative 330. Dialysis today removed 1500. Weight in the bed scale today was not recorded. GENERAL: Patient is seen lying in bed and appears older than stated age and frail but in no acute distress, awake, alert and comfortable. Extraocular muscles are intact. Tongue is moist. There is no dried blood on his naris. There is no oral thrush. The right tunneled hemodialysis catheter has erythema along the tunnel tract. Cardiac S1, S2 regular rate. Old mid sternal healed scar and no edema in his legs. Lungs symmetric air entry bilaterally. No crackles or rales. Abdomen is somewhat distended. There is some mild edema in the flanks. There is no acidic wave. There is no rebound or guarding. Musculoskeletal, there is no edema in the periphery. There is some scattered ecchymosis on his arms. Neurologic, he is oriented interactive and conversational. No focal deficits. LABS: White count 1.4, hemoglobin 9.6, platelets 17, sodium 135, potassium 4.0. INPATIENT MEDICATIONS: He continues on the ceftaroline. He is receiving a dose of Neupogen 480 mcg subcu. He received iron with dialysis today. Remainder of medications are unchanged from prior. PROBLEMS: 1. End-stage renal disease on hemodialysis in the setting of systolic congestive heart failure. He had only 1.4 liters removed with dialysis yesterday due to hypotension of hemodialysis. Holding parameters were added with Entresto. He was dialyzed again today with 1.5 liters removed and his daily weight are down trending. He did have abdominal imaging that did not reveal any ascites. He is receiving Heparin free dialysis in view of his severe thrombocytopenia. Next dialysis will be on Wednesday with goal fluid removal of 2 to 2.5 liters as tolerated by hemodynamics. 2. Tunnel tract infection of right IJ Permacath. He is on IV ceftaroline. Today is day 6. He is significantly leukopenic and that may be why the infection is not improving. He is going to receive Neupogen today. His wound and blood cultures have been negative. Because of the severe thrombocytopenia, I a not requesting catheter exchange at this time. 3. Pancytopenia. White count less than 1, platelets 17,000, hemoglobin 9.6, after 2 units were transfused yesterday. 2 units of platelets with dialysis today and Neupogen as well. He receives completely Heparin free dialysis. He continues on Aranesp and Venofer with dialysis. He had bone marrow biopsy yesterday. 4. Systolic congestive heart failure. Volume status is improving nicely. Daily weights are down trending. He continues on Entresto and Carvedilol in view of systolic cardiomyopathy with holding parameters and he is also on Midodrine in view of hypotension of hemodialysis.
[2018-04-21] MEDS: PRAVASTATIN 20 MG TAB PO SCH (21:30)
[2018-04-21] MEDS: SENNA 8.6 MG TAB (SENOKOT) PO SCH (21:31)
[2018-04-21] MEDS: CLOPIDOGREL 75 MG TAB PO SCH (21:32)
[2018-04-21] MEDS: rOPINIRole 1MG TAB PO SCH (21:33)
[2018-04-21] MEDS: GABAPENTIN 100 MG CAP PO SCH (21:34)
[2018-04-21] MEDS: LEVEMIR (INSULIN DETEMIR) 1 UNITS/0.01ML SC SCH (21:36)
[2018-04-21 22:23] LABS: PLATELET ESTIMATE MARKED DECREASE (NORMAL)
[2018-04-21] MEDS: FEBUXOSTAT 40 MG TABLET (ULORIC) PO SCH (22:41)
[2018-04-22] VITALS (7 sets, daily range): BP systolic 89–131; BP diastolic 40–66
[2018-04-22] MEDS: FAMOTIDINE IV BAG 20 MG in APPROPRIATE DILUENT 1 EA IV SCH ×2 (01:40→12:37)
[2018-04-22] MEDS: CEFTAROLINE FOSAMIL 200 MG in D5W 50 ML IV SCH (03:00)
[2018-04-22 05:09] LABS: HEMATOCRIT 24.6 % (42.0-52.0); HEMOGLOBIN 7.8 g/dl (13.5-17.5); LYMPH % 13.3 % (24.0-44.0); MEAN CORPUSCULAR HGB CONC 31.7 g/dl (32.0-36.5); MEAN CORPUSCULAR VOLUME 91.4 fl (80.0-96.0); MONO # 0.1 10^3/uL (0.0-0.8); MONO % 12.2 % (0.0-5.0); NEUTROPHILS % 73.4 % (36.0-66.0); RED BLOOD COUNT 2.69 10^6/uL (4.30-6.10)
[2018-04-22 05:12] LABS: LYMPH # 0.1 10^3/uL (1.5-4.5); NEUTROPHILS # 0.7 10^3/uL (1.8-7.7); PLATELET COUNT, AUTOMATED 35 10^3/uL (150-450); WHITE BLOOD COUNT 0.9 10^3/uL (4.0-10.0)
[2018-04-22 05:25] LABS: C REACTIVE PROTEIN QUANTITATIV 9.36 MG/DL (0.00-0.30); CALCIUM LEVEL 8.7 MG/DL (8.8-10.2); CREATININE FOR GFR 3.9 MG/DL (0.70-1.30); GLOMERULAR FILTRATION RATE 16.9 (>49); POTASSIUM SERUM 4.3 MEQ/L (3.5-5.1)
[2018-04-22] MEDS: HumaLOG INSULIN (NovoLOG) PER UNIT SC SCH ×4 (07:30→21:00)
[2018-04-22] MEDS: CARVedilol 3.125 MG TAB PO SCH ×2 (08:02→21:00)
[2018-04-22] MEDS: ENTRESTO 24-26MG TABLET (SACUBITRIL/VALSARTAN) PO SCH ×2 (08:03→21:35)
--- NOTE | 2018-04-22 08:34 | IPNPDOC ---
Text Note Date of Service The patient was seen on 04/22/18. NOTE Subjective: Patient seen and examined at bedside. No acute overnight events reported. It appears his epistaxis has resolved. Still complains of pain in his throat with swallowing. He feels there are sores in his mouth. Objective: Vitals (See below) General: lying comfortably in bed, NAD HEENT: NC, AT, EOMI, right IJ tunneled cath - mild erythema, no discharge CVS: RRR, +S1S2, systolic murmur Lungs: CTA B/L Abdomen: soft, NT, +BS, mild distention Extremities: trace peripheral edema A/P: Patient is a 62-year-old male with a PMHx of ESRD on HD (TTS), CAD s/p CABG / Stents (Hx of # CA), Systolic CHF - EF 30%, arrhythmia s/p PPM, HTN, DLP, COPD, who presented to the ER with complaints of SOB. In the emergency room, patient was found to have fluid overload and was admitted to hospitalist service for further evaluation and treatment. #Fluid overload - likely 2/2 acute decompensated systolic CHF / ESRD on HD (TTS) - appears to be euvolemic - c/w HD - Nephrology on consultation - appreciate their input #tunneled tract infection at right IJ permacath - has completed 6 days of ceftaroline - afebrile - no obvious etiology for pancytopenia - secondary to ceftaroline? - d/c ceftaroline - ID c/s pending #epistaxis - appears to have resolved #odynophagia - concern for viral - CMV? given immunocomprimise (chronic MTX, steroids, neutropenia/leukopenia) - viral panel pending #Pancytopenia - d/w heme c/s appreciated - f/u BM Bx [A] ANEMIA - Occult blood positive - repeat pending - s/p 5 units PRBC - Given very recent stent placement and advanced cardiac history (states 29 stent placements); c/w ASA / Plavix - Dr. Chow on consult; appreciate his input; patient will pursue evaluation via EGD / Colonoscopy at a later time given recent cardiac intervention [B] Thrombocytopenia - s/p 6 units of platelets - epistaxis has resolved - d/w cardiology - Dr. Gonzales's office, states if need temporarily hold ASA [C] Leukopenia - ANC 670 - started neupogen - Hepatitis profile / HIV negative - Peripheral smear 04/15: Negative - Will continue to monitor #Left arm erythema / warmth / tenderness - possibly 2/2 cellulitis - CRP improving - d/c ceftaroline in setting of pancytopenia - completed 6 days #Abdominal distension - suspected to be 2/2 Ascites - improving - US abdomen 04/13: No evidence of fluid - c/w HD #s/p Left jaw pain - resolved - CT maxillofacial 04/14: Minimal mucosal thickening is present in the ethmoid and maxillary sinuses - Will have outpatient f/u with dentist #CAD s/p CABG / Stents (Hx of CA) - d/w medical aide office - Dr. Gonzales - last cath 03/30/18 - all interventions patent; last stent 02/09/18 - Patient states 29 stent placements, CABG x2 - Outpatient medical aide is Dr. Alvarado - interventionalist - Dr. Gonzales - request for old records still pending - as above, office ([facility]) states can temporarily hold ASA if needed #arrhythmia s/p PPM #HTN - c/w Sacubitril / Valsartan, Carvedilol given severe systolic failure/CAD - c/w Midodrine #IDDM2 with Hypoglycemia - c/w Levemir and ISS #DLP - c/w Pravastatin #COPD - No evidence of exacerbation - c/w inhaled therapy as ordered #Neuropathy - c/w Gabapentin #Gout - c/w Febuxostat #RLS - c/w Ropinirole #RA - c/w Prednisone - Will hold Methotrexate #GERD - c/w Protonix #non-compliance - daughter endorsed very poor medical compliance #DVT prophylaxis - c/w SCDs Disposition: - d/w Dr. Gonzales's office (cardiology); ID c/s pending; d/w [facility] for transfer - no beds available, d/w [facility] - transfer denied; continue to monitor CBC, f/u bone marrow biopsy; heme follow up; extensive discussion with daughter Yisel [phone] - notified [facility] for emergency release; guarded/poor prognosis ADDENDUM: Infected permacath requires replacement. No vascular services available. Transferring to [facility] vascular services - accepting MD Dr. Beckman. Uncertain if patient will be able to be transferred today given inclement weather. VS,Fishbone, I+O VS, Fishbone, I+O Laboratory Tests 04/21/18 18:07 Red Blood Count 3.12 L, Mean Corpuscular Volume 92.6, Mean Corpuscular Hemoglobin 30.1, Mean Corpuscular Hemoglobin Concent 32.5, Red Cell Distribution Width 16.1 H 04/22/18 04:45 Red Blood Count 2.69 L, Mean Corpuscular Volume 91.4, Mean Corpuscular Hemoglobin 29.0, Mean Corpuscular Hemoglobin Concent 31.7 L, Red Cell Distri bution Width 15.9 H, Neutrophils (%) (Auto) 73.4 H, Lymphocytes (%) (Auto) 13.3 L, Monocytes (%) (Auto) 12.2 H, Eosinophils (%) (Auto) 0.0, Basophils (%) (Auto) 0.0, Neutrophils # (Auto) 0.7 L, Lymphocytes # (Auto) 0.1 L, Monocytes # (Auto) 0.1, Eosinophils # (Auto) 0.0, Basophils # (Auto) 0.0, Calcium Level 8.7 L Vital Signs Date Time Temp Pulse Resp B/P (MAP) Pulse Ox O2 Delivery O2 Flow Rate FiO2 04/22/18 08:02 85 98/40 04/22/18 04:00 98.9 20 97 NIPPV (BIPAP/CPAP) I&O- Last 24 Hours up to 6 AM 04/22/18 06:00 Intake Total 220 ml Output Total 1500 ml Balance -1280 ml LEO SPAIN MD Apr 22, 2018 08:34
[2018-04-22] MEDS: FOLIC ACID 1 MG TAB PO SCH (08:53)
[2018-04-22] MEDS: MIDODRINE 5 MG TAB PO SCH (08:53)
[2018-04-22] MEDS: CALCITRIOL 0.25 MCG CAP (S0169) PO SCH (08:53)
[2018-04-22] MEDS: CYANOCOBALAMIN 500 MCG TAB PO SCH ×3 (08:54→21:39)
[2018-04-22] MEDS: THIAMINE 100 MG TAB PO SCH (08:54)
[2018-04-22] MEDS: DOCUSATE SODIUM 100 MG CAP PO SCH ×2 (08:54→21:00)
[2018-04-22] MEDS: predniSONE 2.5 MG TAB PO SCH (08:54)
[2018-04-22] MEDS: ASPIRIN 81 MG ENTERIC TAB PO SCH (08:54)
[2018-04-22] MEDS: VITAMIN D 1,000 INTERNATIONAL UNITS TABLET PO SCH (08:54)
[2018-04-22] MEDS: OXYMETAZOLINE NASAL SPRAY (AFRIN) SCH ×2 (08:54→21:41)
[2018-04-22] MEDS: SODIUM CHLORIDE NASAL 0.65% SPRAY BTL (OCEAN) SCH ×3 (08:55→21:42)
[2018-04-22 10:45] LABS: MONO REFLEX EBV COMP NEGATIVE (NEGATIVE)
--- NOTE | 2018-04-22 12:33 | REP ---
CT CHEST WITHOUT CONTRAST: HISTORY: Shortness of breath. Comparison is made with chest x-ray from April 19 2018. FINDINGS: There is no evidence of pleural effusion or pericardial effusion. Four-chamber cardiomegaly is observed. A pacemaker in the right heart. Extensive vascular calcification. Prior sternotomy is noted. A right IJ central venous catheter is seen with its tip in the SVC. Interstitial markings are increased in the anterior portions of the upper lobes bilaterally and to a lesser extent in the right middle lobe and lingula. There is a little fissural thickening in the major fissure. The interstitial markings are bilateral and symmetric and may reflect interstitial edema. No other significant pulmonary opacity. No evidence of adenopathy or mass lesion. IMPRESSION: Increased interstitial markings in the upper lobes bilaterally anteriorly and symmetrically. To some degree, there is involvement in the right middle lobe and lingula as well. Most likely interstitial edema. Electronically Signed by Shaggy Lynn MD 04/22/2018 04:40 P
--- NOTE | 2018-04-22 13:29 | REP ---
CT abdomen and pelvis without IV or oral contrast: History: Shortness of breath. Comparison study January 11, 2015. Findings: The liver and the spleen are homogeneous in texture normal in size. Gallbladder is surgically absent. No adrenal lesion is seen. There is vascular calcification. No hydronephrosis or renal mass lesion is observed. There is a small cyst along the medial edge of the pancreas measuring 1.4 cm in greatest diameter. This appears to be unchanged from the comparison study. No pancreatic mass lesion is observed. Small and large bowel loops are normal in the abdomen and pelvis. Pararenal and perirenal fat compartments are hypertrophied bilaterally but this is unchanged. There is left colonic diverticulosis. A left hip prosthesis is noted in place and the patient is status post multilevel lumbar spine fusion. Impression: Status post cholecystectomy. No acute intra-abdominal abnormality. Left colonic diverticulosis. Normal appendix. Electronically Signed by Shaggy Lynn MD 04/22/2018 04:41 P
[2018-04-22] MEDS ORDERED: FILG48VL SC (13:47)
--- NOTE | 2018-04-22 15:04 | DS.PDOC ---
Discharge Summary General Date of Admission Apr 12, 2018 at 12:59 Date of Discharge 04/22/2018 Primary Care Physician: ONIEL DINH MD @ Attending Physician: LEO SPAIN MD Specialist/Consultants Involve: CUCO DINH DO Specialist/Consultants Involve Gastroenterology: Dr. Chow Hematology/oncology: Dr. De La Vega Infectious disease: Dr. Prabhu Ellison Discharge Summary PROCEDURES PERFORMED DURING STAY: None. ADMITTING DIAGNOSES: 1. Acute systolic heart failure. 2. End-stage renal disease. DISCHARGE DIAGNOSES: 1. Fluid overload secondary to systolic HF exacerbation and ESRD on HD. 2. IJ Perm-A-Cath infection. 3. Pancytopenia. 4. Left upper extremity cellulitis. 5. Abdominal distention. 6. Left jaw pain. 7. CAD status-post CABG with stenting. 8. Arrhythmia status-post PPM. 9. Hypertension. 10. IDDM2 with hypoglycemia. 11. Dyslipidemia. 12. Neuropathy. 13. COPD. 14. Gout. 15. RLS. 16. RA. 17. GERD. COMPLICATIONS/CHIEF COMPLAINT: ESRD,Systolic CHF, Acute On Chronic. HISTORY OF PRESENT ILLNESS: Mr. Clark is a 62-year-old male with a past medical history of end-stage renal disease on hemodialysis Tuesdays, , and Saturdays, last dialysis was this past Wednesday, history of coronary artery disease status post multiple myocardial infarctions (MIs), history of two coronary artery bypass grafts (CABGs) one in 2000 and one in 2014 with 29 stents, history of hyperlipidemia, chronic systolic heart failure who presents to the emergency room with increasing shortness of breath since his last dialysis. According to the patient he has been having problems with nocturnal orthopnea that is being progressive to the point where he has to sit up to sleep. He went to Dr. Dinh to his clinic where he was sent to the emergency room (ER) for evaluation and admission for emergent dialysis. Patient is anuric at this time. He was just discharged from [facility] last week for non-ST e levation myocardial infarction (ME) where he had a catheter placed and dialysis commenced. Again his last dialysis was this past Wednesday. Upon further history taking the patient did say that they had trouble with his blood pressure dropping during dialysis so not much fluid was withdrawn, apparently the patient has gained approximately 12 pounds since his last dialysis. He will be admitted for further management. HOSPITAL COURSE: Patient was admitted for further medical management. Nephrolo gy was consulted for ESRD on HD. Aggressive hemodialysis continued throughout hospitalization. Started patient on Aranesp due to anemia. Status-post 3 units PRBC transfusion. Positive FOBT. Gastroenterology consulted. Upper and lower endoscopies recommended, but deferred secondary to recent cardiac intervention. Initial presentation most consistent with HF exacerbation. Abdominal distention noted with possible ascites. Imaging unrevealing for ascitic fluid. Aspirin and Plavix continued due to patient's extensive coronary artery disease with reported 29 cardiac stents. Developed jaw pain with imaging obtained (as resulted below) and deferred for out-patient follow-up. Erythema, warmth, and edema of left upper extremity most likely secondary to cellulitis. Started Ceftaroline. Upper extremity ultrasound obtained and negative for DVT. Patient developed fever with hypotension and leukopenia. Cultures obtained from right IJ catheter which were negative. Developed thrombocytopenia with epistaxis. Verbally discussed with ENT. Started Afrin and normal saline nasal spray. Obtained hepatitis and HIV panel which were negative. Abdominal imaging obtained. Peripheral smear obtained which was negative. Became pancytopenic. Status-post 4 units of platelets. Consulted hematology/oncology. Underwent bone marrow biopsy. Ceftaroline discontinued due to possibility that it was causing pancytopenia. Started Neupogen upon discharge. Infectious disease consulted. Most likely Perm-A-Cath infection with underlying viral infection for explanation of pancytopenia. [facility] accepted patient in transfer with Dr. Beckman (vascular surgery) being the accepting physician. Patient is stable for transfer to accepting facility for further management. DISCHARGE MEDICATIONS: Please see below. ALLERGIES: Please see below. PHYSICAL EXAMINATION ON DISCHARGE: VITAL SIGNS: Please see below. General: lying comfortably in bed, NAD HEENT: NC, AT, EOMI, right IJ tunneled cath - mild erythema, no discharge CVS: RRR, +S1S2, systolic murmur Lungs: CTA B/L Abdomen: soft, NT, +BS, mild distention Extremities: trace peripheral edema LABORATORY DATA: Please see below. IMAGIN. Portable chest x-ray on 04/11/2018 - interstitial edema, cardiomegaly. 2. Limited abdominal ultrasound on 04/13/2018 - no ascites. 3. CT maxillofacial with contrast on 04/14/2018 - sinus mucosal thickening. 4. Chest x-ray, 2 view, PA and lateral on 04/16/2018 - no dense consolidation, pleural effusion or parenchymal mass, right jugular dialysis catheter and multi lead pacer again seen, sternotomy wires and clips from CABG with cardiomegaly, improved vascular congestion but still with some pulmonary venous hypertension. 5. Bilateral upper extremity duplex venous ultrasound on 04/17/2018 - no evidence of deep venous thrombosis. 6. Portable chest x-ray on 04/19/2018 - stable exam. 7. CT chest without contrast on 04/22/2018 - increased interstitial markings in the upper lobes bilaterally anteriorly and symmetrically; to some degree, there is involvement in the right middle lobe and lingula as well; most likely interstitial edema. 8. CT abdomen and pelvis without contrast on 04/22/2018 - status post cholecystectomy, no acute intra-abdominal abnormality, left colonic divert iculosis, normal appendix. PROGNOSIS: Overall, poor. ACTIVITY: As tolerated. DIET: Renal. DISCHARGE PLAN: As outlined below. DISPOSITION: Transfer, [facility]. DISCHARGE INSTRUCTIONS: 1. Further direction as per accepting facility. 2. Recommend hospitalist consultation. 3. Consider cardiology, infectious disease, and hematology/oncology consultation. ITEMS TO FOLLOWUP ON ON OUTPATIENT: 1. As per accepting facility. DISCHARGE CONDITION: Overall, poor. TIME SPENT ON DISCHARGE: Greater than 60 minutes. Vital Signs/I&Os Vital Signs Date Time Temp Pulse Resp B/P (MAP) Pulse Ox O2 Delivery O2 Flow Rate FiO2 04/22/18 12:00 98.7 83 18 106/59 (75) 93 Room Air I&O- Last 24 Hours up to 6 AM 04/22/18 06:00 Intake Total 220 ml Output Total 1500 ml Balance -1280 ml Laboratory Data Labs 24H Laboratory Tests 2 04/21/18 16:48: Bedside Glucose (Misc Panel) 100 04/21/18 18:07: Immature Granulocyte % (Auto) 1.1, Neutrophils (%) (Auto) 73.8H, Lymphocytes (%) (Auto) 20.7L, Monocytes (%) (Auto) 3.3, Eosinophils (%) (Auto) 0.0, Basophils (%) (Auto) 1.1H, Immature Granulocyte # (Auto) 0.0, Neutrophils # (Auto) 0.7L, Lymphocytes # (Auto) 0.2L, Monocytes # (Auto) 0.0, Eosinophils # (Auto) 0.0, Basophils # (Auto) 0.0, Nucleated Red Blood Cells % (auto) 0.0, Platelet Estimate MARKED DECREASE 04/21/18 21:23: Bedside Glucose (Misc Panel) 144H 04/22/18 04:42: 04/22/18 04:45: Immature Granulocyte % (Auto) 1.1, White Blood Count 0.9*L, Red Blood Count 2.69L, Hemoglobin 7.8L, Hematocrit 24.6L, Mean Corpuscular Volume 91.4, Mean Corpuscular Hemoglobin 29.0, Mean Corpuscular Hemoglobin Concent 31.7L, Red Cell Distribution Width 15.9H, Platelet Count 35L, Neutrophils (%) (Auto) 73.4H, Lymphocytes (%) (Auto) 13.3L, Monocytes (%) (Auto) 12.2H, Eosinophils (%) (Auto) 0.0, Basophils (%) (Auto) 0.0, Neutrophils # (Auto) 0.7L, Lymphocytes # (Auto) 0.1L, Monocytes # (Auto) 0.1, Eosinophils # (Auto) 0.0, Basophils # (Auto) 0.0, Nucleated Red Blood Cells % (auto) 2.2H, Anion Gap 8, Glomerular Filtration Rate 16.9L, Blood Urea Nitrogen 45H, Creatinine 3.90H, Sodium Level 139, Potassium Level 4.3, Chloride Level 102, Carbon Dioxide Level 29, Calcium Level 8.7L, C- Reactive Protein, Quantitative 9.36H 04/22/18 09:50: Folate 14.0, Monoscreen NEGATIVE 04/22/18 12:12: Bedside Glucose (Misc Panel) 163H CBC/BMP Laboratory Tests 04/21/18 18:07 Red Blood Count 3.12 L, Mean Corpuscular Volume 92.6, Mean Corpuscular He moglobin 30.1, Mean Corpuscular Hemoglobin Concent 32.5, Red Cell Distribution Width 16.1 H 04/22/18 04:45 Red Blood Count 2.69 L, Mean Corpuscular Volume 91.4, Mean Corpuscular Hemoglobin 29.0, Mean Corpuscular Hemoglobin Concent 31.7 L, Red Cell Distribution Width 15.9 H, Neutrophils (%) (Auto) 73.4 H, Lymphocytes (%) (Auto) 13.3 L, Monocytes (%) (Auto) 12.2 H, Eosinophils (%) (Auto) 0.0, Basophils (%) (Auto) 0.0, Neutrophils # (Auto) 0.7 L, Lymphocytes # (Auto) 0.1 L, Monocytes # (Auto) 0.1, Eosinophils # (Auto) 0.0, Basophils # (Auto) 0.0, Calcium Level 8.7 L FSBS Laboratory Tests Test 04/21/18 16:48 04/21/18 21:23 04/22/18 12:12 Range/Units Bedside Glucose (Misc Panel) 100 144 163 80-115 MG/DL Microbiology Microbiology 04/16/18 Blood Culture - Final, Complete NO GROWTH AFTER 5 DAYS 04/12/18 Stool Occult Blood (CARLYLE) - Final, Complete 04/16/18 Wound Culture - Final, Resulted Discharge Medications Scheduled (Katya Wilde) 300 Unit/Ml Inj, 70 UNIT SC QHS, (Reported) (Folic Acid) 800 Mcg Cap, 2,400 MCG PO DAILY, (Reported) Aspirin (Aspirin 81) 81 Mg Tab, 81 MG PO DAILY, (Reported) Calcitriol (Calcitriol) 0.25 Mcg Cap, 0.25 MCG PO DAILY, (Reported) Carvedilol (Carvedilol) 3.125 Mg Tab, 3.125 MG PO BID, (Reported) Cholecalciferol (Vitamin D3) 1,000 Unit Tab, 2,000 UNIT PO DAILY, (Reported) Clopidogrel Bisulfate (Clopidogrel) 75 Mg Tab, 75 MG PO QHS, (Reported) Cyanocobalamin (Vitamin B12) 500 Mcg Tab, 500 MCG PO TID, (Reported) Febuxostat (Uloric) 80 Mg Tab, 80 MG PO QHS, (Reported) Filgrastim (Neupogen) 480 Mcg/0.8 Ml Soln, 480 MCG SC DAILY 480MCG Gabapentin (Gabapentin) 100 Mg Cap, 100 MG PO QHS, (Reported) Insulin Human Regular (Humulin R) 1 Units/0.01 Ml Soln, 0 SC ACHS, (Reported) PER SLIDING SCALE Melatonin (Melatonin) 5 Mg Tab, 5 MG PO QHS, (Reported) Midodrine HCl (Midodrine HCl) 5 Mg Tab, 5 MG PO 3XW, (Reported) MON,WED,FRI Pantoprazole Sodium (Pantoprazole Sodium) 40 Mg Tab, 40 MG PO BID, (Reported) Pravastatin Sodium (Pravastatin Sodium) 80 Mg Tab, 80 MG PO QHS, (Reported) Prednisone (Prednisone) 2.5 Mg Tab, 2.5 MG PO DAILY, (Reported) Ropinirole Hydrochloride (Ropinirole HCl) 1 Mg Tab, 1 MG PO QHS, (Reported) Sacubitril/Valsartan (Entresto 24-26 mg) 1 Tab Tab, 1 TAB PO BID, (Reported) Thiamine HCl (B-1) 250 Mg Tab, 250 MG PO DAILY, (Reported) Scheduled PRN Acetaminophen (Acetaminophen) 500 Mg Tab, 1,000 MG PO BID PRN for PAIN, (Repo rted) Bisacodyl (Dulcolax) 5 Mg Tab, 5 MG PO DAILY PRN for CONSTIPATION, (Reported) Docusate Sodium (Colace) 100 Mg Cap, 100 MG PO BID PRN for CONSTIPATION, (Reported) Linaclotide Base (Linzess) 290 Mcg Cap, 290 MCG PO DAILY PRN for CONSTIPATION, (Reported) Nitroglycerin (Nitrostat) 0.4 Mg Subl, 0.4 MG SL NITRO PRN for CHEST PAIN, (Reported) Ondansetron HCl (Zofran) 4 Mg Tab, 4 MG PO Q8H PRN for NAUSEA, (Reported) Polyethylene Glycol (Miralax) 1 Pow Pow, 17 GM PO DAILY PRN for CONSTIPATION, (Reported) Senna (Senna-Lax) 8.6 Mg Tab, 1 TAB PO BID PRN for CONSTIPATION, (Reported) Simethicone (Simethicone) 80 Mg Chew, 80 MG PO Q6H PRN for GAS PAIN, (Reported) Allergies Coded Allergies: Shellfish Allergy (Verified Allergy, Unknown, 06/28/12) Contrast Media (Unverified Adverse Reaction, Unknown, KIDNEY PROBLEMS, 03/05/18) Hydralazine (Unverified Adverse Reaction, Unknown, dizziness, 03/05/18) SAVAGE GONZALEZ DO Apr 22, 2018 15:04
[2018-04-22] MEDS: FILGRASTIM 480 MCG/0.8 ML SYRINGE (J1442) SC SCH (16:43)
[2018-04-22] MEDS: MAGIC MOUTHWASH SUSPENSION BTL SS PRN (16:51)
[2018-04-22 18:59] LABS: HEMATOCRIT 27.2 % (42.0-52.0); HEMOGLOBIN 8.7 g/dl (13.5-17.5); MEAN CORPUSCULAR HEMOGLOBIN 30.2 pg (27.0-33.0); MEAN CORPUSCULAR VOLUME 94.4 fl (80.0-96.0); RED BLOOD COUNT 2.88 10^6/uL (4.30-6.10)
[2018-04-22 19:08] LABS: WHITE BLOOD COUNT 1.2 10^3/uL (4.0-10.0)
[2018-04-22 19:09] LABS: PLATELET COUNT, AUTOMATED 26 10^3/uL (150-450)
[2018-04-22 19:47] LABS: ATYPICAL LYMPH 9 % (0-5); EOSINOPHILS 5 % (0-5); LYMPHOCYTES 21 % (16-52); METAMYELOCYTES 3 % (0-0); MONOCYTES 9 % (0-8); MYELOCYTES 1 % (0-0); NEUTROPHILS 38 % (35-75); PLATELET ESTIMATE MARKED DECREASE (NORMAL)
[2018-04-22 19:48] LABS: POLYCHROMASIA 1+
[2018-04-22] MEDS: LEVEMIR (INSULIN DETEMIR) 1 UNITS/0.01ML SC SCH (21:00)
[2018-04-22] MEDS: rOPINIRole 1MG TAB PO SCH (21:00)
[2018-04-22] MEDS: SENNA 8.6 MG TAB (SENOKOT) PO SCH (21:35)
[2018-04-22] MEDS: PRAVASTATIN 20 MG TAB PO SCH (21:35)
[2018-04-22] MEDS: CLOPIDOGREL 75 MG TAB PO SCH (21:39)
[2018-04-22] MEDS: GABAPENTIN 100 MG CAP PO SCH (21:39)
[2018-04-23] MEDS: FAMOTIDINE IV BAG 20 MG in APPROPRIATE DILUENT 1 EA IV SCH ×2 (02:54→13:39)
[2018-04-23 04:00] VITALS: BP 91/51
--- NOTE | 2018-04-23 04:03 | CR ---
DATE OF CONSULTATION: 04/22/2018 REQUESTING PROVIDER: Dr. Garvin REASON FOR CONSULTATION: Perma-Cath infection. HISTORY OF PRESENT ILLNESS: This is a 62-year-old male who was recently at [facility] at the end of February for a non-ST elevated myocardial infarction. During his hospital stay, he had a panel of Perma-Cath placed on 03/31/[address] Navarro and dialysis commenced. His dialysis days are Tuesdays, and Saturdays. He was seen by Dr. Jason corcoran on 04/11/2018 and was sent directly to the emergency room for an evaluation and admission for emergent dialysis. He was dialyzed for 5 days in a row, on the , and again on the and . On 04/14/2018, Dr. Chow from gastroenterology was consulted for positive fecal occult blood and a drop in the patient's hemoglobin. Apparently while he was at [facility] he had bright red blood per rectum. There was a plan to take the patient for an upper and lower endoscopy to evaluate for a gastrointestinal bleed. However, this was deferred to a later time given that the patient had recently had a non ST elevation myocardial infarction. On 04/16/2018, the patient reported a rash on his left forearm, as well as tenderness around the right IJ tunneled hemodialysis catheter site. He also reported a low grade fever. At this time, he was placed on IV ceftaroline. On the , the patient was noted to have leukopenia and it was further found that the patient had pancytopenia. Dr. De La Vega was consulted and recommended a bone marrow aspiration to rule out myelodysplastic syndrome. By the , the patient continued to be severely neutropenic with a white count of 0.9 and there was concern that the patient's Perma-Cath could be infected, so infectious disease was consulted. The patient is seen at bedside today. He states that he feels tired, but denies any fevers or chills. He has been afebrile overnight. Last documented fever was on 04/16/2018. He denies any nausea, vomiting or diarrhea. He denies any bright red blood per rectum or current blood in his stool. His only complaint is that he has a sore throat and has some pain over his Perma-Cath site, as well as a rash on his left forearm. He also has a dry non productive cough and SOB. REVIEW OF SYSTEMS: CONSTITUTIONAL: Denies fevers, chills, weight loss or night sweats. HEENT: Denies headache, double vision, tinnitus or runny nose. He admits to epistaxis and some odynophagia CARDIOVASCULAR: Does admit to shortness of breath and some orthopnea and edema. Denies palpitations. RESPIRATORY: Admits to cough without sputum production but denies wheezes, hemoptysis. GASTROINTESTINAL: Admits to the vague diffuse abdominal pain but denies nausea, vomiting, diarrhea, constipation, obstipation, hematemesis, hematochezia, melena or tenesmus. GENITOURINARY: Patient is anuric. MUSCULOSKELETAL: Denies any joint swelling or stiffness. INTEGUMENTARY: Admits to a rash on his left forearm, as well as some redness around his dialysis catheter site. NEUROLOGIC: Denies any changes to sight / smell / hearing / taste, seizures, headaches, paresthesias, numbness or limb weakness. PSYCHIATRIC : Denies depression, anhedonia or paranoia. ENDOCRINE: Positive for history of diabetes. Denies polydipsia, constipation, dry skin, sweatiness, diarrhea, tremor or palpitations. HEMATOLOGIC: Denies anemia, purpura, petechiae or easy bruising / bleeding. LYMPHATIC: Denies any new lumps or bumps anywhere. PAST MEDICAL HISTORY: 1. Chronic systolic heart failure with an AICD to be placed soon. 2. Coronary artery disease status post multiple myocardial infarctions and 29 stents placed, as well as a history of two coronary artery bypass graft (CABG) surgeries. 3. Hyperlipidemia. 4. Diabetes. 5. Hypertension. 6. Pacemaker placement. 7. Non oxygen-dependent chronic obstructive pulmonary disease (COPD). 8. End stage renal disease on hemodialysis. 9. Secondary hyperparathyroidism. PAST SURGICAL HISTORY: 1. CABG times two. 2. History of back surgery. 3. Cholecystectomy. 4. Cataract surgery. 5. Left hip surgery. 6. Pacemaker placement. ALLERGIES: CONTRAST MEDIA, HYDRALAZINE, SHELLFISH. FAMILY HISTORY: Significant for early coronary disease and cardiac related deaths. SOCIAL HISTORY: The patient lives with his and denies tobacco, alcohol or illicit drug use. CURRENT MEDICATIONS: - Neupogen 480 mcg daily - famotidine 20 mg every12 hours IV - Afrin two sprays twice a day nasally - [place] nasal spray two sprays three times a day nasally - acetaminophen 650 mg every 6 hours as needed for pain or fever - Preparation H four times a day as needed - Colace 100 mg twice a day by mouth - Senna 2 tablets at night by mouth - Levemir insulin 25 units at night subcutaneously - Coreg 3.125 mg twice a day by mouth - Plavix 75 mg at night by mouth - gabapentin 100 mg at night by mouth - Pravachol 80 mg by mouth - Requip 1 mg by mouth at night - Entresto 24 - 26 mg one tablet twice a day by mouth - insulin sliding scale - Aranesp 200 mcg during hemodialysis - vitamin B12 500 mcg three times a day by mouth - hypoglycemic protocol. - Dulcolax 5 mg daily as needed by mouth for constipation - nitroglycerin 0.4 mg every 5 minutes as needed sublingual for chest pain - Zofran 4 mg every 8 hours as needed by mouth - simethicone 80 mg every 6 hours as needed by mouth for back pain - aspirin 81 mg by mouth daily - vitamin D 2000 units daily by mouth - midodrine 5 mg Wednesday, Wednesday, Wednesday - prednisone 2.5 mg daily by mouth - thiamine 250 mg daily by mouth - Calcitriol 0.25 mcg daily by mouth - folic acid 2 mg daily by mouth PHYSICAL EXAMINATION: Vitals: Temperature 98.7, pulse 85 and regular, respiratory rate 18, blood pressure 90/40. Pulse ox is 92% on room air. GENERAL: This is a very pleasant male in no acute distress. He is pleasant and cooperative. HEENT: Atraumatic, normocephalic. Pupils equal, round and reactive to light bilaterally. Mucous membranes are moist. The patient has his own teeth and dentition is fair. There are some sores on the inside of the mouth that are small. Posterior pharynx is somewhat erythematous with bright red blood tracking down the back of the posterior pharynx. There is no thrush. Neck: Supple, nontender. No lymphadenopathy, no thyromegaly. LUNGS: Clear to auscultation bilaterally. No wheezes, rhonchi or rales. HEART: Regular rate and rhythm. No gallops or rubs, however, there is a faint holosystolic murmur about 2/6 heard best at the left sternal border second intercostal space. ABDOMEN: Obese, soft, somewhat distended with mild edema in the flank. EXTREMITIES: No clubbing, cyanosis or edema. SKIN: On the patient's right chest wall the tunneled dialysis catheter has erythema along the opening where the catheter comes out. This area, as well as the part of the catheter that is tunneled underneath the patient's skin is diffusely tender to palpation. He also has a 3 cm x 5 cm area of erythema right next to it that is blanchable, and several layers of dermis are seen. There looks like there has been skin that has been peeled off. On the patient's left forearm, there is a 2 to 3 cm diameter circular area of erythema that is not blanchable. It looks like he has a central eschar and there is petechiae diffusely spread around it. It is not hot to touch. On the patient's bilateral lower extremities over the shins are long 1 cm wide areas of purple discoloration that the patient states has been there for 15-20 years. These are non blanchable and not hot to palpation. There are several small round circular flat patches around the knees. NEUROLOGIC: Alert and oriented times three. Cranial nerves II-XII intact. Equal muscle strength 5/5 in all four extremities. LABORATORY DATA: Complete blood count (CBC): WBC 0.9, hemoglobin 7.8, hematocrit 24.6, platelets 35, neutrophils 73%, lymphocytes 13%, monocytes 12%, absolute neutrophil count is calculated at 657. Chemistry: Sodium 139, potassium 4.3, chloride 102, carbon dioxide 29, BUN 45, creatinine 3.90, fasting glucose 154, calcium 8.7, CRP 9.36, vitamin B12 pending, folate 14. Coagulation: On 04/11/2018: PT 14.7, INR 1.13, PTT 29.8. Fibrinogen 773 from 04/17/2018 and fibrin degradation products 5 from 04/17/2018. LA normalized ratio 1.08. LAD RVVT screen ratio 1.3 from 04/18/2018. IMMUNOLOGY: Anti cardiolipin IgG antibody pending. Serology: HIV / hepatitis B / hepatitis C / hepatitis A negative. [place] screen negative. Blood cultures from 04/11/2018 times two were negative. Stool occult blood from 04/12/2018 was positive. Wound culture from 04/16/2018 from the chest showed no growth. Port culture from 04/16/2018 showed no growth after 5 days. IMAGING STUDIES: Chest x-ray from 04/11/2018 showed interstitial edema and cardiomegaly. Abdominal ultrasound from 04/13/2018 showed no ascites, therefore paracentesis was not performed. Maxillofacial CT from 04/14/2018 showed sinus mucosal thickening in the ethmoid and maxillary sinuses. Chest x-ray from 04/16/2018 showed no dense consolidation, pleural effusion or parenchymal masses. No air bronchograms. Right jugular dialysis catheter and multiple lead pacer were seen. Sternotomy wires and clips from previous coronary artery bypass graft (CABG) with cardiomegaly. Improved vascular congestion but still with some pulmonary venous hypertension. Vascular ultrasound from 04/17/2018 showed no evidence of deep vein thrombosis (DVT) in the bilateral upper extremities. Chest x-ray from 04/19/2018 showed a stable exam. Electrocardiogram from 04/11/2018 showed sinus rhythm, left ventricular hypertrophy, ST-T change, inferior myocardial infarction, probably old, as well as poor R-wave progression. Electrocardiogram from 04/18/2018 showed normal sinus rhythm, low QRS complex voltage in the limb leads, nonspecific ST-T wave abnormalities. IMPRESSION: This is a 62-year-old male with multiple comorbidities who was seen at [facility] at the end of February where a Perma-Cath was placed and was started on dialysis for end stage renal disease. He was admitted to the hospital on 04/11/2018 for emergent hemodialysis and GI bleeding. He was evaluated by gastroenterology but upper or lower endoscopies were deferred due to the patient's recent cardiac history. Looking back at the laboratories, it looks like he started to become a leukopenic on 04/12/2018 He had a fever on the , which prompted a closer look at his Perma-Cath, as well as the rash that had developed on his left upper extremity. He was started on ceftaroline on the and that was discontinued today on the with worsening leukopenia. He received a total of 6 days of antibiotics. He was evaluated by oncology for pancytopenia, who recommended a bone marrow aspiration to rule out myelodysplastic disease, and infectious disease was consulted for potential Perma-Cath infection and leukopenia. Leukopenia started before ceftaroline and patient developed PANCYTOPENIA . his associated with mouth sores could be related to viral pathogens such as EBV, CMV, parvovirus HSV which would be highest on my differential. He has an exit site infection of his catheter HD that is an indication for removal of catheter PLAN: We will test for HSV I and II as the patient does have sores in his mouth, as well as Jessica-Salmeron virus (EBV) and parvovirus, which could also cause the pancytopenia. Hepatitis and HIV workup has been negative. We will also send a respiratory virus panel for further evaluation. As the patient is also experiencing some shortness of breath and seems to be fluid overload despite ultrafiltration with hemodialysis, recommend getting a CT chest, abdomen and pelvis to assess for any pathology explaining his fever, cough and SOB in spite of dialysis Thank you for involving us in the care of your patient, we will follow him along. My faculty preceptor for this patient encounter was physically present during the encounter and was fully available. All aspects of the patient interview, examination, medical decision making process, and medical care plan development were reviewed and approved by the faculty preceptor. The faculty preceptor is aware and concurs with the plan as stated in the body of this note and will attest to such by his/her co-signature. JERMAIN
[2018-04-23 05:26] LABS: HEMATOCRIT 23.5 % (42.0-52.0); HEMOGLOBIN 7.5 g/dl (13.5-17.5); MEAN CORPUSCULAR HEMOGLOBIN 30.1 pg (27.0-33.0); MEAN CORPUSCULAR HGB CONC 31.9 g/dl (32.0-36.5); MEAN CORPUSCULAR VOLUME 94.4 fl (80.0-96.0); RED BLOOD COUNT 2.49 10^6/uL (4.30-6.10)
[2018-04-23 05:34] LABS: PLATELET COUNT, AUTOMATED 31 10^3/uL (150-450)
[2018-04-23 05:50] LABS: CALCIUM LEVEL 8.6 MG/DL (8.8-10.2); CREATININE FOR GFR 5.97 MG/DL (0.70-1.30); GLOMERULAR FILTRATION RATE 10.3 (>49); POTASSIUM SERUM 4.3 MEQ/L (3.5-5.1)
[2018-04-23 06:31] LABS: ANISOCYTOSIS 2+; ATYPICAL LYMPH 7 % (0-5); EOSINOPHILS 8 % (0-5); LYMPHOCYTES 39 % (16-52); MONOCYTES 5 % (0-8); MYELOCYTES 1 % (0-0); NEUTROPHILS 39 % (35-75); PLATELET ESTIMATE DECREASED (NORMAL); POLYCHROMASIA 1+
[2018-04-23 06:32] LABS: DOHLE BODIES 1+
[2018-04-23] MEDS: HumaLOG INSULIN (NovoLOG) PER UNIT SC SCH ×4 (07:30→21:00)
[2018-04-23 08:00] VITALS: BP 88/58
--- NOTE | 2018-04-23 08:49 | IPNPDOC ---
Text Note Date of Service The patient was seen on 04/23/18. NOTE Subjective: Patient seen and examined at bedside. Preparing for transportation for dialysis today. No acute overnight events reported. Epistaxis has resolved. Still complains of pain in his throat with swallowing. Objective: Vitals (See below) General: lying comfortably in bed, NAD HEENT: NC, AT, EOMI, right IJ tunneled cath - mild erythema, no discharge CVS: RRR, +S1S2, systolic murmur Lungs: CTA B/L Abdomen: soft, NT, +BS, mild distention Extremities: trace peripheral edema A/P: Patient is a 62-year-old male with a PMHx of ESRD on HD (TTS), CAD s/p CABG / Stents (Hx of # MD), Systolic CHF - EF 30%, arrhythmia s/p PPM, HTN, DLP, COPD, who presented to the ER with complaints of SOB. In the emergency room, patient was found to have fluid overload and was admitted to hospitalist service for further evaluation and treatment. #Fluid overload - likely 2/2 acute decompensated systolic CHF / ESRD on HD (TTS) - appears to be euvolemic - c/w HD - Nephrology on consultation - appreciate their input #tunneled tract infection at right IJ permacath - has completed 6 days of ceftaroline - afebrile - no obvious etiology for pancytopenia - secondary to ceftaroline? - d/c ceftaroline - ID c/s appreciated #epistaxis - appears to have resolved #odynophagia - concern for viral - CMV? given immunocomprimise (chronic MTX, steroids, n eutropenia/leukopenia) - viral panel pending #Pancytopenia - d/w heme c/s appreciated - f/u BM Bx - still pending [A] ANEMIA - Occult blood positive - repeat pending - s/p 5 units PRBC - 2 more today - Hgb 7.5 - Given very recent stent placement and advanced cardiac history (states 29 stent placements); c/w ASA / Plavix - Dr. Chow on consult; appreciate his input; patient will pursue ev aluation via EGD / Colonoscopy at a later time given recent cardiac intervention [B] Thrombocytopenia - s/p 6 units of platelets - epistaxis has resolved - d/w cardiology - Dr. Gonzales's office, states if need temporarily hold ASA [C] Leukopenia - started neupogen - Hepatitis profile / HIV negative - Peripheral smear 04/15: Negative - Will continue to monitor #Left arm erythema / warmth / tenderness - possibly 2/2 cellulitis - CRP improving - d/c ceftaroline in setting of pancytopenia - completed 6 days #Abdominal distension - suspected to be 2/2 Ascites - improving - US abdomen 04/13: No evidence of fluid - c/w HD #s/p Left jaw pain - resolved - CT maxillofacial 04/14: Minimal mucosal thickening is present in the ethmoid and maxillary sinuses - Will have outpatient f/u with dentist #CAD s/p CABG / Stents (Hx of MD) - d/w diesel engine pipe fitter office - Dr. Gonzales - last cath 03/30/18 - all interventions patent; last stent 02/09/18 - Patient states 29 stent placements, CABG x2 - Outpatient diesel engine pipe fitter is Dr. Alvarado - interventionalist - Dr. Gonzales - request for old records still pending - as above, office ([employer]) states can temporarily hold ASA if needed #arrhythmia s/p PPM #HTN - c/w Sacubitril / Valsartan, Carvedilol given severe systolic failure/CAD - c/w Midodrine #IDDM2 with Hypoglycemia - c/w Levemir and ISS #DLP - c/w Pravastatin #COPD - No evidence of exacerbation - c/w inhaled therapy as ordered #Neuropathy - c/w Gabapentin #Gout - c/w Febuxostat #RLS - c/w Ropinirole #RA - c/w Prednisone - Will hold Methotrexate #GERD - c/w Protonix #non-compliance - daughter endorsed very poor medical compliance #DVT prophylaxis - c/w SCDs Disposition: - pending transfer to [facility] for vascular services to replace permacath; transfer delayed due to weather; transfuse PRBC today, continue serial CBC VS,Mariaelenae, I+O VS, Natalia, I+O Laboratory Tests 04/22/18 18:47 Red Blood Count 2.88 L, Mean Corpuscular Volume 94.4, Mean Corpuscular Hemoglobin 30.2, Mean Corpuscular Hemoglobin Concent 32.0, Red Cell Distribution Width 15.4 H, Neutrophils # (Auto) 04/23/18 05:07 Red Blood Count 2.49 L, Mean Corpuscular Volume 94.4, Mean Corpuscular Hemoglobin 30.1, Mean Corpuscular Hemoglobin Concent 31.9 L, Red Cell Distribution Width 15.9 H, Neutrophils # (Auto) , Calcium Level 8.6 L Vital Signs Date Time Temp Pulse Resp B/P (MAP) Pulse Ox O2 Delivery O2 Flow Rate FiO2 04/23/18 04:00 99.7 74 18 91/51 (64) 97 NIPPV (BIPAP/CPAP) 04/23/18 04:00 3.0 I&O- Last 24 Hours up to 6 AM 04/23/18 06:00 Intake Total 756 ml Output Total 100 ml Balance 656 ml LEO SPAIN MD Apr 23, 2018 08:49
[2018-04-23] MEDS: ENTRESTO 24-26MG TABLET (SACUBITRIL/VALSARTAN) PO SCH ×2 (08:54→21:00)
[2018-04-23] MEDS: CARVedilol 3.125 MG TAB PO SCH ×2 (08:54→21:00)
[2018-04-23 13:10] VITALS: BP 98/54
[2018-04-23] MEDS: ASPIRIN 81 MG ENTERIC TAB PO SCH (13:34)
[2018-04-23] MEDS: THIAMINE 100 MG TAB PO SCH (13:34)
[2018-04-23] MEDS: CALCITRIOL 0.25 MCG CAP (S0169) PO SCH (13:34)
[2018-04-23] MEDS: DOCUSATE SODIUM 100 MG CAP PO SCH ×2 (13:35→20:46)
[2018-04-23] MEDS: predniSONE 2.5 MG TAB PO SCH (13:35)
[2018-04-23] MEDS: VITAMIN D 1,000 INTERNATIONAL UNITS TABLET PO SCH (13:36)
[2018-04-23] MEDS: CYANOCOBALAMIN 500 MCG TAB PO SCH ×3 (13:36→20:46)
[2018-04-23] MEDS: FOLIC ACID 1 MG TAB PO SCH (13:36)
[2018-04-23] MEDS: OXYMETAZOLINE NASAL SPRAY (AFRIN) SCH ×2 (13:38→20:47)
[2018-04-23] MEDS: SODIUM CHLORIDE NASAL 0.65% SPRAY BTL (OCEAN) SCH ×3 (13:38→20:47)
--- NOTE | 2018-04-23 15:53 | IPN ---
DATE: 04/22/2018 SUBJECTIVE: Patient is seen and examined this morning sitting out of bed to the chair. He denies any acute overnight events or issues, has not had any more epistaxis. Had two units of platelets transfused with dialysis yesterday and he is for packed red blood cell (PRBC) transfusion today. Has not had any epistaxis in the past 24 hours[address] discussed with Dr. Ellison regarding the tunnel tract infection and plan is for removal. He is on Neupogen for his leukopenia. His throat is soap drier tender and he requests a diet change so he can have milkshakes and ice cream. Temperature 98.7, pulse 83, respiratory rate 18, blood pressure 106/59, saturating 93% on room air. Intake yesterday was not fully recorded, dialysis yesterday removed 1500, weight in the bed scale today is 76.8 kg. General: Patient is seen sitting out of bed in a chair, awake, alert, oriented, no acute distress. Extraocular muscles are intact. Tongue is moist. There is no oral thrush or pharyngeal exudate. Right internal jugular (IJ) tunneled dialysis catheter has erythema along the tract. Cardiac: S1, S2, regular rate. Old midsternal healed scar. No edema in the legs or in the peripheries. The lungs show symmetric air entry. No crackle or rale. The abdomen has some edema in the flanks, otherwise nontender and no ascitic wave. No rebound or guarding. Musculoskeletal: There is some scattered ecchymoses on the arms. Neurologic: He is oriented, interactive, and conversational. LABORATORY DATA: Sodium 139, potassium 4.3, bicarbonate 29, hemoglobin 8.7, white count 1.2, platelets 26. INPATIENT MEDICATIONS: Reviewed by myself and unchanged from prior. PROBLEMS: 1. End-stage renal disease on hemodialysis in the setting of systolic congestive heart failure. Patient was dialyzed on Wednesday and with a total of three liters removed in those two days. He was having hypotension of hemodialysis. He continues on midodrine pre-dialysis. His volume status is improving, daily weights are downtrending, he is comfortable on room air. Next dialysis will be on Wednesday with a goal fluid removal of two liters as tolerated by hemodynamics. 2. Tunnel tract infection of the right internal jugular (IJ) Permacath. He has received 6 days of ceftaroline. This is being stopped due to concern of drug effect on pancytopenia. He is significantly leukopenic which is why I feel the infection is not improving. He is now on Neupogen. His culture from the exit site and his blood cultures taken from the catheter have been negative. I spoke with Dr. Ellison regarding replacing the catheter and we will get in touch with vascular surgery for the same. His C-reactive protein (CRP) does continue to downtrend. 3. Pancytopenia. a. Leukopenia. White count of about 1 on Neupogen. b. Anemia with hemoglobin 7.8 today. He is for one unit packed red blood cell. He continues on aspirin and Plavix due to recent coronary stent. He continues on Aranesp and Venofer with dialysis. c. Thrombocytopenia. He receives heparin-free dialysis. He received two units of platelet transfusion yesterday. In view of the anemia, thrombocytopenia, and leukopenia, I am also holding the Uloric in case it is having any drug effect, and viral titers are in progress to see if there is any viral myelosuppression. 4. Systolic congestive heart failure acute on chronic. Daily weights are downtrending. He continues on Entresto and carvedilol in view of systolic cardiomyopathy with holding parameters and he has hypotension of hemodialysis so he also continues on midodrine pre-dialysis. His volume status is acceptable at present. 5. Complaint of odynophagia. I have changed his diet so he can have milkshakes. He is finding it difficult to swallow. Cytomegalovirus (CMV) titers are pending. He was previously on methotrexate and is chronically on prednisone so he may have some sort of opportunistic infection such as cytomegalovirus (CMV) that can cause esophagitis and bone marrow suppression. Infectious diseases is following.
[2018-04-23 16:00] VITALS: BP 117/63
--- NOTE | 2018-04-23 16:24 | IPN ---
DATE: 04/23/2018 Mr. Clark is seen this morning during hemodialysis. He was admitted with congestive heart failure in the setting of end-stage renal disease and his volume status has improved significantly since admission with frequent dialysis. His major complication during this hospitalization is persistent pancytopenia for which he has been seen by hematology and infectious disease. He has been treated with broad-spectrum antibiotic for possible catheter site infection. However, he has been afebrile. His diabetes has been well controlled. His main complaint at this point today is sore throat and difficulty swallowing due to pain. He has no fever or chills. He denies any dyspnea or chest pain. His medications are reviewed and no changes are noted over last 24 hours. PHYSICAL EXAMINATION: His temperature is 98.1 degrees Fahrenheit, heart rate 78 per minute and respiratory rate 20 per minute. Blood pressure 88/58 mmHg and oxygen saturation 94% on room air. His head is atraumatic. He is pale and chronically ill looking but not in any acute distress. His neck veins are not abnormally distended and a Perma-Cath is present in right internal jugular vein. There is no erythema or drainage at the catheter site. He does not have any oral thrush or ulcers. Posterior pharynx is slightly erythematous. Heart sounds are regular and without a pericardial friction rub. Lungs with slightly diminished breath sounds at bases but without any wheezing or rales. Abdomen is soft and nontender and bowel sounds are normal. Extremities have no cyanosis or clubbing. There is no peripheral edema. Neurologically he is awake, alert and at his baseline mentation. Today's labs show WBC count 1.0, hemoglobin 7.5 and hematocrit 23.5. Platelets are 31,000. Sodium 140, potassium 4.3, CO2 29, BUN 78 and creatinine 5.97. Calcium level is 8.6. PROBLEMS: 1. End-stage renal disease. The patient is currently being dialyzed and is tolerating dialysis treatment very well. His catheter is functioning very well. 2. Acute on chronic systolic congestive heart failure in the setting of end-stage renal disease. His volume status is very well compensated with frequent hemodialysis. His oral intake is minimal now due to difficulty swallowing. We are trying to remove about 2 liters of fluid as tolerated. 3. Hypotension. He does have chronic hypotension for which he is now taking midodrine. His blood pressure seems to be at about baseline. 4. Pancytopenia. The patient has been on Aranesp for anemia and Neupogen for leukopenia. We will continue with the same. He does not seem to have any hemodialysis catheter site infection at this point and ceftaroline has already been stopped. I have discussed with Dr. Garvin and we can cover him with an antifungal and antiviral antibiotic for possible esophagitis either with Moraima or cytomegalovirus (CMV). 5. Gout. The patient is currently asymptomatic and I am going to stop his Uloric for now in view of pancytopenia as it could be related to any medications and we will try to stop all unnecessary medications that can be stopped. 6. Generalized weakness and deconditioning. The patient seems to be very weak related to prolonged complicated hospitalization and is likely to require some rehabilitation. We will encourage him to get up and sit in the bed as frequently as possible. 7. Coronary artery disease. The patient has significant coronary artery disease with multiple angioplasties and stents. At this point he does not seem to have any symptoms related to his coronary artery disease. He remains on his chronic therapy with Plavix and low-dose beta claudia with nitroglycerin only as needed which he has not required. He is also on chronic pravastatin therapy which will be continued. [facility]
[2018-04-23] MEDS: MAGIC MOUTHWASH SUSPENSION BTL SS PRN ×2 (16:59→20:51)
[2018-04-23] MEDS: FILGRASTIM 480 MCG/0.8 ML SYRINGE (J1442) SC SCH (17:32)
[2018-04-23 18:13] LABS: HEMATOCRIT 31.1 % (42.0-52.0); HEMOGLOBIN 10.2 g/dl (13.5-17.5); MEAN CORPUSCULAR HGB CONC 32.8 g/dl (32.0-36.5); MEAN CORPUSCULAR VOLUME 88.4 fl (80.0-96.0); RED BLOOD COUNT 3.52 10^6/uL (4.30-6.10)
[2018-04-23 18:18] LABS: PLATELET COUNT, AUTOMATED 48 10^3/uL (150-450); WHITE BLOOD COUNT 1.1 10^3/uL (4.0-10.0)
[2018-04-23 19:03] LABS: ATYPICAL LYMPH 2 % (0-5); EOSINOPHILS 3 % (0-5); LYMPHOCYTES 19 % (16-52); MONOCYTES 21 % (0-8); NEUTROPHILS 44 % (35-75); PLATELET ESTIMATE MARKED DECREASE (NORMAL)
[2018-04-23 19:04] LABS: POLYCHROMASIA 1+; TOXIC GRANULATION 1+
[2018-04-23 20:00] VITALS: BP 94/51
[2018-04-23] MEDS: PRAVASTATIN 20 MG TAB PO SCH (20:45)
[2018-04-23] MEDS: rOPINIRole 1MG TAB PO SCH (20:46)
[2018-04-23] MEDS: LEVEMIR (INSULIN DETEMIR) 1 UNITS/0.01ML SC SCH (20:46)
[2018-04-23] MEDS: GABAPENTIN 100 MG CAP PO SCH (20:46)
[2018-04-23] MEDS: SENNA 8.6 MG TAB (SENOKOT) PO SCH (20:46)
[2018-04-23] MEDS: CLOPIDOGREL 75 MG TAB PO SCH (20:46)
[2018-04-23 23:59] VITALS: BP 107/57
[2018-04-24] MEDS: FAMOTIDINE IV BAG 20 MG in APPROPRIATE DILUENT 1 EA IV SCH ×2 (03:00→15:05)
[2018-04-24 04:00] VITALS: BP 96/55
[2018-04-24 05:39] LABS: HEMOGLOBIN 9.9 g/dl (13.5-17.5); MEAN CORPUSCULAR HEMOGLOBIN 29.3 pg (27.0-33.0); MEAN CORPUSCULAR HGB CONC 31.9 g/dl (32.0-36.5); MEAN CORPUSCULAR VOLUME 91.7 fl (80.0-96.0); PLATELET COUNT, AUTOMATED 55 10^3/uL (150-450); RED BLOOD COUNT 3.38 10^6/uL (4.30-6.10); WHITE BLOOD COUNT 1.6 10^3/uL (4.0-10.0)
[2018-04-24 06:02] LABS: CREATININE FOR GFR 4.54 MG/DL (0.70-1.30); GLOMERULAR FILTRATION RATE 14.2 (>49); POTASSIUM SERUM 4.3 MEQ/L (3.5-5.1)
[2018-04-24 07:04] LABS: ATYPICAL LYMPH 6 % (0-5); EOSINOPHILS 4 % (0-5); LYMPHOCYTES 45 % (16-52); MONOCYTES 4 % (0-8); MYELOCYTES 1 % (0-0); NEUTROPHILS 36 % (35-75); PLATELET ESTIMATE DECREASED (NORMAL)
[2018-04-24 07:05] LABS: ANISOCYTOSIS 2+; MICROCYTOSIS 1+; POIKILOCYTOSIS 1+; POLYCHROMASIA 1+
[2018-04-24] MEDS: HumaLOG INSULIN (NovoLOG) PER UNIT SC SCH ×4 (07:30→21:43)
[2018-04-24 08:00] VITALS: BP 101/59
[2018-04-24] MEDS: [UNRECOGNIZED DRUG - REMARK] XX SCH (08:00)
[2018-04-24] MEDS: ENTRESTO 24-26MG TABLET (SACUBITRIL/VALSARTAN) PO SCH ×2 (09:00→21:43)
[2018-04-24] MEDS ORDERED: MIDODRINE 5 MG TAB PO SCH (09:00)
[2018-04-24] MEDS: CARVedilol 3.125 MG TAB PO SCH ×2 (09:00→21:43)
[2018-04-24] MEDS: DOCUSATE SODIUM 100 MG CAP PO SCH ×2 (09:36→21:42)
[2018-04-24] MEDS: FOLIC ACID 1 MG TAB PO SCH (09:37)
[2018-04-24] MEDS: VITAMIN D 1,000 INTERNATIONAL UNITS TABLET PO SCH (09:37)
[2018-04-24] MEDS: THIAMINE 100 MG TAB PO SCH (09:37)
[2018-04-24] MEDS: CALCITRIOL 0.25 MCG CAP (S0169) PO SCH (09:37)
[2018-04-24] MEDS: ASPIRIN 81 MG ENTERIC TAB PO SCH (09:38)
[2018-04-24] MEDS: predniSONE 2.5 MG TAB PO SCH (09:38)
[2018-04-24] MEDS: CYANOCOBALAMIN 500 MCG TAB PO SCH ×3 (09:38→21:41)
[2018-04-24] MEDS: OXYMETAZOLINE NASAL SPRAY (AFRIN) SCH ×2 (09:39→21:00)
[2018-04-24] MEDS: SODIUM CHLORIDE NASAL 0.65% SPRAY BTL (OCEAN) SCH ×3 (09:39→21:44)
--- NOTE | 2018-04-24 10:26 | IPNPDOC ---
Text Note Date of Service The patient was seen on 04/24/18. NOTE Subjective: Patient seen and examined at bedside. Still complains of odynophagia. He has decided he wishes to stay at [facility]. States he generally feels better today. No new medical complaints Objective: Vitals (See below) General: lying comfortably in bed, NAD HEENT: NC, AT, EOMI, right IJ tunneled cath - no erythema, no discharge CVS: RRR, +S1S2, systolic murmur Lungs: CTA B/L Abdomen: soft, NT, +BS, mild distention Extremities: trace peripheral edema A/P: Patient is a 62-year-old male with a PMHx of ESRD on HD (TTS), CAD s/p CABG / ##Stents (Hx of # [place]), Systolic CHF - EF 30%, arrhythmia s/p PPM, HTN, DLP, COPD, who presented to the ER with complaints of SOB. In the emergency room, patient was found to have fluid overload and was admitted to hospitalist service for further evaluation and treatment. #Fluid overload - resolved - likely 2/2 acute decompensated systolic CHF / ESRD on HD (TTS) - c/w HD - Nephrology on consultation - appreciate their input #tunneled tract infection at right IJ permacath - has completed 6 days of ceftaroline - afebrile - no obvious etiology for pancytopenia - secondary to ceftaroline? - d/c ceftaroline - ID c/s appreciated - line with no obvious signs of infection #epistaxis - resolved #odynophagia - concern for viral ? fungal? given immunocomprimise (chronic MTX, steroids, neutropenia/leukopenia) - viral panel pending - started antifungal today - concern with anti-viral and adverse effects - will discuss further with ID #Pancytopenia - d/w heme c/s appreciated - BM Bx - still pending [A] ANEMIA - continue to follow CBC - receiving aranesp with HD - Occult blood positive - repeat positive - s/p 7 PRBC - Given very recent stent placement and advanced cardiac history (states 29 stent placements); c/w ASA / Plavix - Dr. Chow on consult; appreciate his input; patient will pursue evaluation via EGD / Colonoscopy at a later time given recent cardiac int ervention [B] Thrombocytopenia - improving - s/p 6 units of platelets - epistaxis has resolved - d/w cardiology - Dr. Gonzales's office, states if need temporarily hold ASA [C] Leukopenia - improving - started neupogen - Hepatitis profile / HIV negative - Peripheral smear 04/15: Negative - Will continue to monitor #Left arm erythema / warmth / tenderness - possibly 2/2 cellulitis - CRP improving - completed adequate course of ceftaroline (6 days) #Abdominal distension - suspected to be 2/2 Ascites - improving - US abdomen 04/13: No evidence of fluid - c/w HD #s/p Left jaw pain - resolved - CT maxillofacial 04/14: Minimal mucosal thickening is present in the ethmoid and maxillary sinuses - Will have outpatient f/u with dentist #CAD s/p CABG / Stents (Hx of [place]) - d/w transport pilot office - Dr. Gonzales - last cath 03/30/18 - all interventions patent; last stent 02/09/18 - Patient states 29 stent placements, CABG x2 - Outpatient transport pilot is Dr. Alvarado - interventionalist - Dr. Gonzales - request for old records still pending - as above, office (THERMAL CUTTER HELPER) states can temporarily hold ASA if needed #arrhythmia s/p PPM #HTN - c/w Sacubitril / Valsartan, Carvedilol given severe systolic failure/CAD - c/w Midodrine #IDDM2 with Hypoglycemia - c/w Levemir and ISS #DLP - c/w Pravastatin #COPD - No evidence of exacerbation - c/w inhaled therapy as ordered #Neuropathy - c/w Gabapentin #Gout - c/w Febuxostat #RLS - c/w Ropinirole #RA - c/w Prednisone - Will hold Methotrexate #GERD - c/w Protonix #non-compliance - daughter endorsed very poor medical compliance #DVT prophylaxis - c/w SCDs Disposition: - pending further clinical improvement; viral panel pending Natalia SANCHEZ, I+O VSNatalia, I+O Laboratory Tests 04/23/18 17:56 Red Blood Count 3.52 L, Mean Corpuscular Volume 88.4, Mean Corpuscular Hemoglobin 29.0, Mean Corpuscular Hemoglobin Concent 32.8, Red Cell Distribution Width 18.0 H, Neutrophils # (Auto) , Lymphocytes # (Auto) 1/27/19 05:08 Red Blood Count 3.38 L, Mean Corpuscular Volume 91.7, Mean Corpuscular Hemoglobin 29.3, Mean Corpuscular Hemoglobin Concent 31.9 L, Red Cell Distribution Width 18.4 H, Neutrophils # (Auto) , Calcium Level 9.0 Vital Signs Date Time Temp Pulse Resp B/P (MAP) Pulse Ox O2 Delivery O2 Flow Rate FiO2 04/24/18 09:00 87 104/59 04/24/18 08:00 98.2 18 91 Room Air 04/24/18 00:05 3.0 I&O- Last 24 Hours up to 6 AM 04/24/18 06:00 Intake Total 960 ml Output Total 2225 ml Balance -1265 ml LEO SPAIN MD Apr 24, 2018 10:26
[2018-04-24 12:00] VITALS: BP 111/64
[2018-04-24] MEDS ORDERED: FLUCONAZOLE 200 MG in APPROPRIATE DILUENT 1 EA IV ONE (12:00)
[2018-04-24] MEDS: FILGRASTIM 480 MCG/0.8 ML SYRINGE (J1442) SC SCH (12:57)
[2018-04-24] MEDS: MAGIC MOUTHWASH SUSPENSION BTL SS PRN ×2 (12:57→17:19)
[2018-04-24] MEDS: FLUCONAZOLE 100 MG in APPROPRIATE DILUENT 1 EA IV SCH (15:47)
[2018-04-24 16:00] VITALS: BP 110/60
[2018-04-24 17:58] LABS: HEMATOCRIT 31.7 % (42.0-52.0); HEMOGLOBIN 10.1 g/dl (13.5-17.5); MEAN CORPUSCULAR HEMOGLOBIN 29.4 pg (27.0-33.0); MEAN CORPUSCULAR HGB CONC 31.9 g/dl (32.0-36.5); MEAN CORPUSCULAR VOLUME 92.4 fl (80.0-96.0); RED BLOOD COUNT 3.43 10^6/uL (4.30-6.10)
[2018-04-24 18:00] LABS: PLATELET COUNT, AUTOMATED 64 10^3/uL (150-450)
[2018-04-24 19:15] LABS: ATYPICAL LYMPH 2 % (0-5); EOSINOPHILS 4 % (0-5); LYMPHOCYTES 11 % (16-52); METAMYELOCYTES 3 % (0-0); MONOCYTES 29 % (0-8); NEUTROPHILS 33 % (35-75); PLATELET ESTIMATE MARKED DECREASE (NORMAL)
[2018-04-24 19:16] LABS: DOHLE BODIES 1+; POLYCHROMASIA 1+
[2018-04-24 20:03] VITALS: BP 108/58
[2018-04-24] MEDS: PRAVASTATIN 20 MG TAB PO SCH (21:40)
[2018-04-24] MEDS: SENNA 8.6 MG TAB (SENOKOT) PO SCH (21:41)
[2018-04-24] MEDS: rOPINIRole 1MG TAB PO SCH (21:41)
[2018-04-24] MEDS: CLOPIDOGREL 75 MG TAB PO SCH (21:42)
[2018-04-24] MEDS: GABAPENTIN 100 MG CAP PO SCH (21:42)
[2018-04-24] MEDS: LEVEMIR (INSULIN DETEMIR) 1 UNITS/0.01ML SC SCH (21:44)
[2018-04-25] VITALS (7 sets, daily range): BP systolic 86–157; BP diastolic 52–96
[2018-04-25 00:06] LABS: HSV-1 DNA Positive (Negative); HSV-2 DNA Negative (Negative)
[2018-04-25] MEDS: FAMOTIDINE IV BAG 20 MG in APPROPRIATE DILUENT 1 EA IV SCH ×2 (01:45→14:32)
[2018-04-25 06:01] LABS: HEMATOCRIT 32.7 % (42.0-52.0); HEMOGLOBIN 10.1 g/dl (13.5-17.5); MEAN CORPUSCULAR HEMOGLOBIN 28.9 pg (27.0-33.0); MEAN CORPUSCULAR HGB CONC 30.9 g/dl (32.0-36.5); MEAN CORPUSCULAR VOLUME 93.7 fl (80.0-96.0); RED BLOOD COUNT 3.49 10^6/uL (4.30-6.10); WHITE BLOOD COUNT 3.5 10^3/uL (4.0-10.0)
--- NOTE | 2018-04-25 06:09 | IPN ---
DATE: 04/24/2018 Mr. Clark is seen this morning on his bedside. He still has difficulty swallowing and sore throat. He also has mild cough but no fever or chills. He denies any abdominal pain, dyspnea or chest pain. He was dialyzed yesterday. On physical exam, temperature 98.2 degrees Fahrenheit, heart rate 82 per minute and respiratory rate 18 per minute. Blood pressure 104/59 mmHg and oxygen saturation 91% on room air. His head is atraumatic. His right eye is blind. His neck veins are not abnormally distended. There is no oral thrush. Heart sounds are regular and lungs sound clear to auscultation. Abdomen is soft and nontender and bowel sounds are normal. Extremities have no cyanosis or clubbing. Neurologically he is awake, alert and oriented times three. Today's labs show WBC count 1.6, hemoglobin 9.9 and hematocrit 31. Platelets are 55,000. Sodium 140, potassium 4.3, CO2 28, BUN 44 and creatinine 4.54. Glucose 97 and calcium 9.0. PROBLEM: 1. End-stage renal disease. The patient has been dialysis dependent and was dialyzed yesterday. His next dialysis will be scheduled for Wednesday. 2. Congestive heart failure: Volume status has improved and corrected. At present his oral intake is minimal and we will continue to manage his volume with dialysis. 3. Anemia and pancytopenia: Anemia is stable following most recent transfusion. His pancytopenia is slightly improved and he remains on Neupogen. Platelets are also gradually improving. I do not feel that his right internal jugular vein hemodialysis catheter is infected and we will continue to monitor closely. 4. Sore throat and dysphagia: The patient has been started on Diflucan 200 mg daily and I am cutting down the dose to 100 mg intravenously daily due to his end-stage renal disease (ESRD). His high risk for candidiasis esophagitis due to antibiotic therapy which has already been stopped now. 5. Coronary artery disease: The patient is currently asymptomatic though he has had multiple angioplasties and stents in the past. He remains on his chronic therapy with Plavix, statins and beta claudia. 6. Hypotension: Blood pressure seems to be doing well with low-dose midodrine. No changes are being made today.
[2018-04-25 06:10] LABS: PLATELET COUNT, AUTOMATED 95 10^3/uL (150-450)
[2018-04-25 06:22] LABS: CREATININE FOR GFR 6.82 MG/DL (0.70-1.30); GLOMERULAR FILTRATION RATE 8.9 (>49); POTASSIUM SERUM 4.6 MEQ/L (3.5-5.1)
[2018-04-25 06:50] LABS: ATYPICAL LYMPH 8 % (0-5); EOSINOPHILS 3 % (0-5); LYMPHOCYTES 13 % (16-52); METAMYELOCYTES 1 % (0-0); MONOCYTES 18 % (0-8); NEUTROPHILS 51 % (35-75)
[2018-04-25 06:51] LABS: ANISOCYTOSIS 1+; PLATELET ESTIMATE DECREASED (NORMAL); POLYCHROMASIA 1+
[2018-04-25 06:52] LABS: DOHLE BODIES 1+
[2018-04-25] MEDS: HumaLOG INSULIN (NovoLOG) PER UNIT SC SCH ×4 (07:30→21:00)
[2018-04-25] MEDS: [UNRECOGNIZED DRUG - REMARK] XX SCH (08:00)
[2018-04-25] MEDS: OXYMETAZOLINE NASAL SPRAY (AFRIN) SCH ×2 (08:04→21:29)
[2018-04-25] MEDS: SODIUM CHLORIDE NASAL 0.65% SPRAY BTL (OCEAN) SCH ×3 (08:05→21:29)
[2018-04-25] MEDS: CALCITRIOL 0.25 MCG CAP (S0169) PO SCH (08:05)
[2018-04-25] MEDS: FOLIC ACID 1 MG TAB PO SCH (08:05)
[2018-04-25] MEDS: VITAMIN D 1,000 INTERNATIONAL UNITS TABLET PO SCH (08:05)
[2018-04-25] MEDS: CYANOCOBALAMIN 500 MCG TAB PO SCH ×3 (08:06→21:27)
[2018-04-25] MEDS: predniSONE 2.5 MG TAB PO SCH (08:06)
[2018-04-25] MEDS: ENTRESTO 24-26MG TABLET (SACUBITRIL/VALSARTAN) PO SCH ×2 (08:06→21:28)
[2018-04-25] MEDS: DOCUSATE SODIUM 100 MG CAP PO SCH ×2 (08:06→21:27)
[2018-04-25] MEDS: THIAMINE 100 MG TAB PO SCH (08:06)
[2018-04-25] MEDS: ACETAMINOPHEN TAB 650MG DOSE (2X325MG) PO PRN ×2 (08:07→21:27)
[2018-04-25] MEDS: ASPIRIN 81 MG ENTERIC TAB PO SCH (08:07)
[2018-04-25] MEDS: CARVedilol 3.125 MG TAB PO SCH ×2 (08:16→21:28)
--- NOTE | 2018-04-25 11:08 | IPNPDOC ---
Text Note Date of Service The patient was seen on 04/25/18. NOTE Subjective: Patient seen and examined at bedside. Still complains of odynophagia. No new medical complaints Objective: Vitals (See below) General: lying comfortably in bed, NAD HEENT: NC, AT, EOMI, right IJ tunneled cath - no erythema, no discharge CVS: RRR, +S1S2, systolic murmur Lungs: CTA B/L Abdomen: soft, NT, +BS, mild distention Extremities: trace peripheral edema A/P: Patient is a 62-year-old male with a PMHx of ESRD on HD (TTS), CAD s/p CABG / ##Stents (Hx of # [place]), Systolic CHF - EF 30%, arrhythmia s/p PPM, HTN, DLP, COPD, who presented to the ER with complaints of SOB. In the emergency room, patient was found to have fluid overload and was admitted to hospitalist service for further evaluation and treatment. #Fluid overload - resolved - likely 2/2 acute decompensated systolic CHF / ESRD on HD (TTS) - c/w HD - Nephrology on consultation - appreciate their input #tunneled tract infection at right IJ permacath - has completed 6 days of ceftaroline - afebrile - no obvious etiology for pancytopenia - secondary to ceftaroline? - d/c ceftaroline - ID c/s appreciated - line with no obvious signs of infection #epistaxis - resolved #odynophagia - concern for viral ? fungal? given immuno-comprimise (chronic MTX, steroids, neutropenia/leukopenia) - viral panel pending - started antifungal - adjusted for renal dosing - d/w ENT - c/s appreciated - no lesions visualized on scope #Pancytopenia - d/w heme - c/s appreciated - BM Bx - still pending [A] ANEMIA - continue to follow CBC - receiving aranesp with HD - Occult blood positive - repeat positive - s/p 7 PRBC - Given very recent stent placement and advanced cardiac history (states 29 stent placements); c/w ASA / Plavix - Dr. Chow on consult; appreciate his input; patient will pursue evaluation via EGD / Colonoscopy at a later time given recent cardiac intervention [B] Thrombocytopenia - continues to improve - s/p 6 units of platelets - epistaxis has resolved - d/w cardiology - Dr. Christian's office, states if need temporarily hold ASA [C] Leukopenia - improving - d/c neupogen - received 4 doses - Hepatitis profile / HIV negative - Peripheral smear 04/15: Negative - Will continue to monitor #Left arm erythema / warmth / tenderness - possibly 2/2 cellulitis - CRP improving - completed adequate course of ceftaroline (6 days) #Abdominal distension - suspected to be 2/2 Ascites - improving - US abdomen 04/13: No evidence of fluid - c/w HD #s/p Left jaw pain - resolved - CT maxillofacial 04/14: Minimal mucosal thickening is present in the ethmoid and maxillary sinuses - Will have outpatient f/u with dentist #CAD s/p CABG / Stents (Hx of [place]) - d/w loom starter office - Dr. Gonzales - last cath 03/30/18 - all interventions patent; last stent 02/09/18 - Patient states 29 stent placements, CABG x2 - Outpatient loom starter is Dr. Alvarado - interventionalist - Dr. Gonzales - request for old records still pending - as above, office (SYSTEMS SPECIALIST) states can temporarily hold ASA if needed #arrhythmia s/p PPM #HTN - c/w Sacubitril / Valsartan, Carvedilol given severe systolic failure/CAD - c/w Midodrine #IDDM2 with Hypoglycemia - c/w Levemir and ISS #DLP - c/w Pravastatin #COPD - No evidence of exacerbation - c/w inhaled therapy as ordered #Neuropathy - c/w Gabapentin #Gout - c/w Febuxostat #RLS - c/w Ropinirole #RA - c/w Prednisone - Will hold Methotrexate #GERD - c/w Protonix #non-compliance - daughter endorsed very poor medical compliance #DVT prophylaxis - c/w SCDs Disposition: - pending further clinical improvement; viral panel pending; IV diflucan; ID follow up; ENT c/s appreciated - no gross findings VS,Natalia, I+O VS, Natalia, I+O Laboratory Tests 04/24/18 17:53 Red Blood Count 3.43 L, Mean Corpuscular Volume 92.4, Mean Corpuscular Hemoglobin 29.4, Mean Corpuscular Hemoglobin Concent 31.9 L, Red Cell Distribution Width 18.6 H 04/25/18 05:39 Red Blood Count 3.49 L, Mean Corpuscular Volume 93.7, Mean Corpuscular Hemogl obin 28.9, Mean Corpuscular Hemoglobin Concent 30.9 L, Red Cell Distribution Width 18.6 H, Calcium Level 9.0 Vital Signs Date Time Temp Pulse Resp B/P (MAP) Pulse Ox O2 Delivery O2 Flow Rate FiO2 04/25/18 08:16 100 103/58 04/25/18 08:00 98.1 16 97 Room Air 04/24/18 00:05 3.0 I&O- Last 24 Hours up to 6 AM 04/25/18 05:59 Intake Total 1130 ml Output Total 225 ml Balance 905 ml LEO SPAIN MD Apr 25, 2018 11:08
[2018-04-25] MEDS ORDERED: FLUCONAZOLE 200 MG in APPROPRIATE DILUENT 1 EA IV SCH (15:00)
[2018-04-25] MEDS: FLUCONAZOLE 100 MG in APPROPRIATE DILUENT 1 EA IV SCH (15:01)
--- NOTE | 2018-04-25 15:58 | NUR ---
Pt demonstrates swallow fxn wnl. Recommend regular solids and thin liquids. Pt c/o pain in oral cavity, pt denies pain in pharyngeal, laryngeal, and esophageal regions. This pain is unchanged across solid food consistencies. Recommend to chew on right side of oral cavity, provide Ensure supplements and other calorie dense liquids as able, complete thorough oral care as tolerated. Addendum: 04/25/[address] [facility] Amended: Links added.
--- NOTE | 2018-04-25 16:39 | CR ---
DATE OF CONSULTATION: 04/25/2018 REQUESTING PHYSICIAN: Hospitalist REASON FOR CONSULTATION: Patient with reported odynophagia. HISTORY OF PRESENT ILLNESS: This unfortunate 62-year-old male is on hemodialysis, has a history of two coronary artery bypass grafts, one in 2000 and one in 2014. The patient reports "29 stents." He also has a history of hyperlipidemia and chronic systolic heart failure. During this hospitalization, he was admitted for acute systolic heart failure and end-stage renal disease. Throughout this, he started to complain of some pain on swallowing. Denies any hemoptysis or any hematemesis. The patient also reports a history of stroke in the past. He also had been seen by Dr. Mc in the past for benign thyroid nodules which were negative. The patient also has a history of pancytopenia which has improved. The patient reports he cannot breathe well through his nasal cavity. He had epistaxis before and the blood clots have subsequently developed and he is breathing mainly through the mouth at this point. He has had significant issues with his platelets in the past but has been able to get them under control and is having no issues there. He reports eating satisfactorily, just occasionally has a little bit of pain. He did have a CT scan maxillofacial done earlier which showed no significant abnormalities. PAST MEDICAL HISTORY: As mentioned above is very significant for chronic systolic heart failure, coronary artery disease, multiple myocardial infarctions, coronary artery bypass graft (CABG), stents, diabetes, hypertension, history of pacemaker placement, history of [id number]-flpykwput chronic obstructive pulmonary disease. PAST SURGICAL HISTORY: Coronary artery bypass graft (CABG) times two, back surgery, cholecystectomy, cataract surgery, left hip surgery, pacemaker placement. FAMILY HISTORY: Significant for early coronary artery disease and cardiac-related deaths. SOCIAL HISTORY: Denies alcohol. On talking to the patient, he did report history of stroke although I do not see it in other reports. He has also been on gabapentin. CURRENT MEDICATIONS: Lidocaine, diphenhydramine, magic mouth wash every four hours for 4 pain, famotidine, fluconazole, sodium chloride, acetaminophen, Preparation H, Senna, Plavix, Coreg, gabapentin, ropinirole, insulin, nitroglycerin, prednisone, thiamine. REVIEW OF SYSTEMS: Has been well-documented by previous physicians. PHYSICAL EXAMINATION: The patient is resting comfortably. in no acute distress, talking easily in progressive care unit [id number]. Pinna within normal limits. External canals are clear. There is a little mild cerumen present but the tympanic membranes (TMs) appear to be noninflamed. External nasal cavity is unremarkable. Internal nasal cavity shows blood clots bilaterally. There is more deviation of the septum to the right than there is to the left. Oral examination shows lips, hard palate, posterior oropharynx without any lesions. Underneath the tongue is within normal limits. There is no sign of induration. There is slight tenderness in the left submandibular region but very minimal and it is primarily when the patient reports eating something that he has issues. The rest of physical examination was unremarkable. CT scan showed questionable report of calculus in the tonsil. Tonsil is not inflamed. Neck is supple without any palpable lymphadenopathy. Flexible fiberoptic laryngoscopy was attempted through the nasal cavity. Part of it could be seen but because of the blood clot and the patient's low platelet count, we did not want to cause any further bleeding. We also tried to take a look through the oral cavity and did not see any discrete lesions. LABORATORY DATA: The patient's white count is 3.5, hemoglobin 10.1, hematocrit 32.7, platelet count has come up from 31-90. IMPRESSION: Patient reports of odynophagia, also has a history of gastroesophageal reflux disease. Cannot find any localized area. The patient is not reporting any pain in the tonsil region. He reports it more underneath the tongue area. Cannot visualize anything in that area at this point in time. Would recommend a cool mist mask and also speech therapy to evaluate his functional swallowing mechanisms. This was discussed with his hospitalist. We will sign off. However, if there are any other issues, feel free to give us a call. It may not be a bad idea if the pain persists to also consider getting an oral surgery consult as well.
[2018-04-25] MEDS: GABAPENTIN 100 MG CAP PO SCH (21:27)
[2018-04-25] MEDS: PRAVASTATIN 20 MG TAB PO SCH (21:27)
[2018-04-25] MEDS: SENNA 8.6 MG TAB (SENOKOT) PO SCH (21:27)
[2018-04-25] MEDS: valACYclovir HCL 500 MG TAB PO SCH (21:28)
[2018-04-25] MEDS: rOPINIRole 1MG TAB PO SCH (21:28)
[2018-04-25] MEDS: CLOPIDOGREL 75 MG TAB PO SCH (21:28)
[2018-04-25] MEDS: LEVEMIR (INSULIN DETEMIR) 1 UNITS/0.01ML SC SCH (21:28)
[2018-04-25] MEDS ORDERED: IBUPROFEN 600 MG TAB PO ONE (23:15)
[2018-04-25] MEDS ORDERED: NS 250 ML IV ONE (23:30)
[2018-04-25] MEDS ORDERED: VANCOMYCIN HCL 1,000 MG, VIAL MATE ADAPTER 1 EACH in D5W 250 ML IV ONE (23:30)
--- NOTE | 2018-04-25 23:34 | REPVR ---
EXAM: XR Chest, 1 View EXAM DATE/TIME: 04/25/2018 10:58 PM CLINICAL HISTORY: 62 years old, male; Signs and symptoms; Fever; Additional info: Elevated temp and letharic TECHNIQUE: XR of the chest, 1 view. COMPARISON: CR PORTABLE CHEST X-RAY 04/19/2018 6:34 PM FINDINGS: Tubes, catheters and devices: There is a bilead pacemaker in place.. Large right-sided central line. Lungs: Streaky appearance of the lung bases could be early infiltrate. Pleural space: There is no evidence of pneumothorax. Heart/Mediastinum: There is cardiomegaly Vasculature: There is prominence of the vascular markings accentuated by a shallow depth inspiration. Bones/joints: Sternal wires are present. IMPRESSION: Prominent markings in the lung bases may be early infiltrate. Electronically signed by: Ac Atwood On 04/25/2018 23:34:02 PM
[2018-04-26] VITALS (8 sets, daily range): BP systolic 80–105; BP diastolic 42–64
[2018-04-26] MEDS: PIPERACILLIN/TAZOBACTAM SOD 2.25 GM in D5W MINI-BAG PLUS 50 ML IV SCH ×3 (01:48→16:43)
--- NOTE | 2018-04-26 02:21 | IPNPDOC ---
Date Seen The patient was seen on 04/25/18. Progress Note Called to see patient with temps 101.2 and 103.6 1 hr apart with systolic BP 96mmHg. Patient examined at bedside. He was noted asking for water to drink. GENERAL APPEARANCE: Middle aged man, lying calmly in bed, not in any apparent distress. He is not pale, anicteric and slightly warm to touch HEENT: Atraumatic. Neck: Supple. LUNGS: Clear to auscultation bilaterally. CARDIOVASCULAR: S1 and 2 heard, no murmurs, rubs or gallops. Dialysis cath site examined, skin is erythematuous but with no discharge ABDOMEN: Obese, soft, not tender, not distended. Bowel sounds normoactive. MUSCULOSKELETAL: Apparently within normal limits. EXTREMITIES: No pedal edema, 2+ bilateral pedal pulses noted. NEUROLOGICAL: Awake, alert, oriented 3. PSYCHIATRIC: Normal affect ASSESSMENT He is 62M on HD (TTS), CAD s/p CABG / Stents, Systolic CHF - EF 30%, arrhythmia,, HTN, DLP, COPD, who presented to the ER with complaints of SOB. Being managed for volume overload from CHF/ESRD. Hospital course complicated with tunnelled catheter infection and he completed 6 days of ceftaroline, as well as pancytopenia on neupogen for Leukopenia. IMPRESSION: Sepsis unclear etiology PLAN 1. At this time. Patient is being watched for volume overload. I will give 250 mils bolus of normal saline. 2. I will also panculture patient.: Chest x-ray, blood cultures, urine culture/urinalysis if possible. 3.Start vancomycin IV 1 g and IV Zosyn 2.25 milligrams every 8 hours. Day team review antibiotics, particularly vancomycin. Follow blood cultures, CBC, monitor temperature trend VS, I&O, [facility]O Vital Signs Date Time Temp Pulse Resp B/P (MAP) Pulse Ox O2 Delivery O2 Flow Rate FiO2 04/25/18 22:30 103.6 04/25/18 21:28 100 157/96 04/25/18 20:00 24 91 Room Air 04/24/18 00:05 3.0 I&O- Last 24 Hours up to 6 AM 04/26/18 06:00 Intake Total 600 ml Output Total 0 ml Balance 600 ml Laboratory Data 24H LABS Laboratory Tests 2 04/25/18 05:39: Immature Granulocyte % (Auto) , Nucleated Red Blood Cells % (auto) 1.1H, Neutrophils 51, Band Neutrophils 6, Lymphocytes (Manual) 13L, Monocytes (Manual) 18H, Eosinophils (Manual) 3, Metamyelocytes 1H, Atypical Lymphocytes 8H, Dohle Bodies 1+, Platelet Estimate DECREASED, Immature Platelet Fraction 5.5, Polychromasia 1+, Anisocytosis 1+, Macrocytosis 1+, Anion Gap 8, Glomerular Filtration Rate 8.9L, Blood Urea Nitrogen 56H, Creatinine 6.82#H, Sodium Level 138, Potassium Level 4.6, Chloride Level 101, Carbon Dioxide Level 29, Calcium Level 9.0 04/25/18 12:25: Bedside Glucose (Misc Panel) 146H 04/25/18 17:05: Bedside Glucose (Misc Panel) 209H 04/25/18 21:17: Bedside Glucose (Misc Panel) 170H CBC/BMP Laboratory Tests 04/25/18 05:39 Red Blood Count 3.49 L, Mean Corpuscular Volume 93.7, Mean Corpuscular Hemoglobin 28.9, Mean Corpuscular Hemoglobin Concent 30.9 L, Red Cell Distributi on Width 18.6 H, Calcium Level 9.0 Microbiology Microbiology 04/25/18 Blood Culture, Received Pending 04/25/18 Blood Culture, Received Pending 04/16/18 Blood Culture - Final, Complete NO GROWTH AFTER 5 DAYS 04/24/18 Stool Occult Blood ([facility]) - Final, Complete 04/24/18 Eye/Ear/Nose/Throat Culture - Final, Complete 04/22/18 Respiratory Virus Panel (PCR) ([facility]) - Final, Complete 04/16/18 Wound Culture - Final, Complete Propionibacterium Acnes LATASHA EUBANKS MD Apr 26, 2018 02:21
[2018-04-26] MEDS: FAMOTIDINE IV BAG 20 MG in APPROPRIATE DILUENT 1 EA IV SCH ×2 (02:29→15:41)
--- NOTE | 2018-04-26 05:33 | IPN ---
DATE OF VISIT: 04/25/2018 HISTORY OF PRESENT ILLNESS: Mr. Clark is seen this morning on his bedside. He is feeling better today and reports that he was able to eat some breakfast. He denies any dyspnea or chest pain. He has no fever or chills. He was last dialyzed on Wednesday and 2 liters of fluid was removed. His oral intake has been limited due to difficulty swallowing. PHYSICAL EXAMINATION: VITAL SIGNS: Temperature 98.1 degrees Fahrenheit, heart rate 100 per minute and respiratory rate 16 per minute. Blood pressure 103/58 mmHg and oxygen saturation 97% on room air. HEENT/NECK: His head is atraumatic. Neck is supple and jugular venous distention (JVD) is about 6-7 cm above sternal angle. There is no oral thrush. HEART: His heart sounds are irregular and tachycardiac. LUNGS: Lungs with slightly diminished breath sounds at bases but no wheezing or rales audible. ABDOMEN: Soft and nontender and bowel sounds are normal. EXTREMITIES: No cyanosis or clubbing. SKIN: No rash or ulcers. NEUROLOGY: Neurologically he is awake, alert and at his baseline mentation. LABORATORY DATA: Today's labs show WBC count 3.5, hemoglobin 10.1 and hematocrit 32.7. Platelets are up to 95,000. Sodium 138, potassium 4.6, CO2 29, BUN 56 and creatinine 6.82. Glucose 98 and calcium 9.0. PROBLEMS: 1. End-stage renal disease. The patient has been dialysis dependent and was dialyzed on Wednesday. We will plan to dialyze him again tomorrow. There is no emergent need for dialysis today. 2. Congestive heart failure. The patient is known to have systolic congestive heart failure in the setting of advanced renal failure. His volume status is only slightly decompensated and will try to remove about 2 liters of fluid with dialysis tomorrow as tolerated. 3. Pancytopenia. This is most likely related to medications and is improving gradually. He was transfused a few days ago and since then his hematocrit has remained stable. His platelets are now up to 95,000 today and white cell count is up to 3.5. Neupogen has been given for last four days and it is now being stopped. CBC will be checked again tomorrow morning. 4. Hypotension. Blood pressure seems to be reasonably stable with low-dose midodrine. No changes are being made today. 5. Difficulty swallowing and pain in the throat. Probably the patient has lars esophagitis. He has been started on intravenous Diflucan 100 mg intravenously daily and his white cell count has also improved which is likely to help with the improvement in his symptoms. 6. Generalized weakness. The patient feels very weak and he is being encouraged to get out of bed more often and sit in the chair and exercise with his legs and arms. Physical therapy should be ordered by the hospitalist service.
[2018-04-26 06:29] LABS: HEMATOCRIT 31.5 % (42.0-52.0); HEMOGLOBIN 9.8 g/dl (13.5-17.5); MEAN CORPUSCULAR HEMOGLOBIN 29.2 pg (27.0-33.0); MEAN CORPUSCULAR HGB CONC 31.1 g/dl (32.0-36.5); MEAN CORPUSCULAR VOLUME 93.8 fl (80.0-96.0); PLATELET COUNT, AUTOMATED 148 10^3/uL (150-450); RED BLOOD COUNT 3.36 10^6/uL (4.30-6.10); WHITE BLOOD COUNT 6.5 10^3/uL (4.0-10.0)
[2018-04-26 06:55] LABS: CALCIUM LEVEL 8.9 MG/DL (8.8-10.2); CREATININE FOR GFR 8.36 MG/DL (0.70-1.30); POTASSIUM SERUM 4.1 MEQ/L (3.5-5.1)
[2018-04-26 07:20] LABS: ATYPICAL LYMPH 1 % (0-5); EOSINOPHILS 3 % (0-5); LYMPHOCYTES 5 % (16-52); METAMYELOCYTES 1 % (0-0); MONOCYTES 12 % (0-8); MYELOCYTES 2 % (0-0); NEUTROPHILS 69 % (35-75)
[2018-04-26 07:21] LABS: ANISOCYTOSIS 2+
[2018-04-26 07:22] LABS: PLATELET ESTIMATE NORMAL (NORMAL)
[2018-04-26] MEDS: [UNRECOGNIZED DRUG - REMARK] XX SCH (08:00)
--- NOTE | 2018-04-26 08:39 | IPN ---
DATE OF SERVICE: 04/25/2018 Solitario feels a little better over the weekend, but he still complains of sores in his mouth and difficulty swallowing. He still has a nonproductive cough, mild shortness of breath with exertion. He had a maximum temperature (T-max) of 100.2 over the weekend. LABS: White count 3.5, which has increased from 0.9. Hemoglobin 10.1, hematocrit 32.7. Platelets 95, up from 31. Sodium 138, potassium 4.6, chloride 101, bicarbonate 29, BUN 56, creatinine 6.82, glucose 98, calcium 9. Anticardiolipin antibody is pending. CMV DNA is pending. EBV IgM, IgG, and PCR is pending. 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 Mononucleosis screen negative. HIV negative. PHYSICAL EXAM: Temperature is 97.4, pulse 91, respirations 22, blood pressure 112/57, oxygen saturation 95% on room air. Heart: Normal S1, S2 with a systolic ejection murmur 2/6. Lungs: Good air entry. There are a few crackles at the bases. Abdomen: Is soft, nontender. Extremities: No edema. Oropharynx: He has small ulcers underneath the tongue and on the side of the tongue. IMPRESSION: 1. Oral ulcers with odynophagia and dysphagia. Patient had positive HSV-1 PCR. 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 He will be started on Valtrex 500 mg by mouth at bedtime. Will discontinue IV fluconazole. This is not thrush. If there is no improvement, I would ask Dr. Chow to scope him to rule out any other underlying pathology. 2. Pancytopenia, most likely related to viral illness and probably herpes causing pancytopenia, now improving. 3. End-stage renal disease. On hemodialysis. Stable. 4. Cough, dry, nonproductive. Initially felt to be related to fluid overload and need for dialysis, but the patient has been dialyzed. Chest CT shows increasing interstitial markings, read as interstitial edema, but that could be an interstitial pneumonitis, possibly viral, possibly herpes. Rest of viral pathogens, PCR are pending. PLAN: Valtrex 500 mg by mouth nightly. Consider consulting pulmonary regarding persistent cough with shortness of breath. Discontinue IV fluconazole.
[2018-04-26] MEDS: DOCUSATE SODIUM 100 MG CAP PO SCH (09:00)
[2018-04-26] MEDS: CARVedilol 3.125 MG TAB PO SCH ×2 (09:00→21:00)
[2018-04-26] MEDS: ENTRESTO 24-26MG TABLET (SACUBITRIL/VALSARTAN) PO SCH ×2 (09:00→21:49)
[2018-04-26] MEDS: HumaLOG INSULIN (NovoLOG) PER UNIT SC SCH ×4 (09:26→20:31)
[2018-04-26] MEDS: THIAMINE 100 MG TAB PO SCH (09:27)
[2018-04-26] MEDS: CALCITRIOL 0.25 MCG CAP (S0169) PO SCH (09:27)
[2018-04-26] MEDS: CYANOCOBALAMIN 500 MCG TAB PO SCH ×3 (09:27→21:50)
[2018-04-26] MEDS: predniSONE 2.5 MG TAB PO SCH (09:27)
[2018-04-26] MEDS: FOLIC ACID 1 MG TAB PO SCH (09:27)
[2018-04-26] MEDS: ASPIRIN 81 MG ENTERIC TAB PO SCH (09:27)
[2018-04-26] MEDS: VITAMIN D 1,000 INTERNATIONAL UNITS TABLET PO SCH (09:27)
[2018-04-26] MEDS: OXYMETAZOLINE NASAL SPRAY (AFRIN) SCH ×2 (09:29→21:51)
[2018-04-26] MEDS: SODIUM CHLORIDE NASAL 0.65% SPRAY BTL (OCEAN) SCH ×3 (09:29→21:51)
[2018-04-26] MEDS: MAGIC MOUTHWASH SUSPENSION BTL SS PRN ×2 (10:20→16:44)
[2018-04-26] MEDS ORDERED: SODIUM CHLORIDE 0.9% 1000ML IV ONE ×2 (10:30→11:15)
[2018-04-26] MEDS ORDERED: LIDOCAINE 1% MDV 20ML VIAL As Ordered ONE (11:41)
[2018-04-26] MEDS: MIDODRINE 2.5 MG TAB PO SCH ×2 (12:28→16:43)
--- NOTE | 2018-04-26 12:41 | IPN ---
DATE OF VISIT: 04/26/2018 Mr. Clark is seen this morning on his bedside. He was feeling well yesterday, however, later in the evening he developed fever and became hypotensive. Hospitalist service ordered blood cultures and gave him vancomycin and Zosyn. This morning his blood pressure is still low and he is very lethargic. Fever has resolved and he denies any dyspnea or chest pain though his oxygen saturation did drop slightly to 88% on room air. Nursing staff reports that he also had some loose stool last evening, however, stool was not checked for C diff. The patient denies any abdominal pain but does have discomfort in his throat and pain on swallowing. PHYSICAL EXAMINATION: Temperature 97.2 degrees Fahrenheit, heart rate 78 per minute and respiratory rate 20 per minute. Blood pressure 82/50 mmHg and oxygen saturation 88% on room air. The patient is lethargic but he is able to answer simple questions. His head is atraumatic. Neck veins are moderately distended. Oral mucosa is somewhat dry. Heart sounds are regular and lungs with diminished breath sounds at bases. Abdomen soft and nontender and bowel sounds are present. Extremities have no cyanosis or clubbing. He has a Perma-Cath in right internal jugular vein without any drainage at the catheter site. Neurologically he is awake but somewhat weak and able to answer questions. Today's labs show WBC count 6.5, hemoglobin 9.8 and hematocrit 31.5. Platelets are up to 148. Sodium 137, potassium 4.1, CO2 25, BUN 67 and creatinine 8.36. Glucose is 186 and calcium 8.9. PROBLEMS: 1. Hypotension and fever most likely sepsis. Etiology is uncertain. However, the patient has multiple risks. His white cell count has improved but he has persistent discomfort in his throat. He also has a Perma-Cath which could be the source of sepsis. Blood cultures have already been drawn and I have discussed with Dr. Archibald and have asked to get the catheter removed by Dr. Cruz today. The patient has already been given vancomycin 1 gram and Zosyn. We will wait for his blood cultures. He is currently receiving a fluid bolus of normal saline 500 mL due to low blood pressure. 2. End-stage renal disease. We initially had plan for dialysis today. However, his blood pressure is low due to sepsis. I will hold off on dialysis for now and we will try to get his Perma-Cath removed today and then get a new catheter before next dialysis. 3. Pancytopenia. His pancytopenia has been improving. It was felt by infectious disease that his catheter was infected previously which was contributing to his pancytopenia, however, his pancytopenia has improved nicely despite the presence of catheter. I am not certain if this catheter is infected, however, now with fever and low blood pressure I think we will have no choice but to get his catheter replaced. I would still recommend looking for other sources of sepsis. 4. Congestive heart failure. The patient does have systolic congestive heart failure with end-stage renal disease and minimal urine output. His volume status is slightly decompensated. I would suggest not to give him too much fluid as it can worsen his volume status and respiratory status. He is not likely to tolerate dialysis today and we will wait for 24 hours and then reevaluate him tomorrow for need for dialysis.
--- NOTE | 2018-04-26 13:59 | IPNPDOC ---
Text Note Date of Service The patient was seen on 04/26/18. NOTE Subjective: Patient is a 62-year-old male with a PMHx of ESRD on HD (TTS), CAD s/p CABG / Stents (Hx of [place]), Systolic CHF, s/p PM, HTN, DLP, COPD, who presented to the ER with complaints of SOB. In the ER, patient was found to have fluid overload and was admitted to hospitalist service for further evaluation and treatment. Patient was seen and examined at the bedside. Patient notes that he generally doesn't feel well today. Denies any chest pain, shortness breath or palpitations. Denies nausea, vomiting, abdominal pain, constipation, diarrhea. Objective: Vitals (See below) General: Lying in bed, no acute distress, comfortable, Awake / Alert HEENT: NC, AT CVS: RRR, +S1S2 Lungs: Fair air entry b/l, auscultation is without any wheezing, rales or rhonchi Abdomen: Soft, no tenderness, but appears mildly distended Extremities: LE still reveal trace/1+ edema b/l, - Calf tenderness Assessment and plan: Fever - possibly 2/2 Pneumonia / Pneumonitis (HCAP), possibly 2/2 line infection - Patient notes that he is experiencing some cough - Patient's blood pressure was noted to be on the lower side of normal today - Has had febrile episodes yesterday evening - CXR 04/26: Prominent markings in the lung bases may be early infiltrate. - Case discussed with Dr. Cruz (Vascular surgery); will have line removed today and new line placed within the next 24-48 hours - c/w Vancomycin and Zosyn (Day #1); s/p Ceftaroline (7 day course) Odynophagia / Dysphagia - possibly 2/2 HSV infection - c/w Valacyclovir; s/p Fluconazole s/p Fluid overload - likely 2/2 acute decompensated systolic CHF / ESRD on HD (TTS) - No significant signs of fluid overload - BNP significantly elevated on admission - CXR 04/11: 1. Interstitial edema. 2. Cardiomegaly. - c/w HD - Nephrology (Dr. Alejo) on consultation; appreciate their input s/p Pancytopenia - possibly 2/2 viral illness [A]Normocytic anemia - likely 2/2 GI source possibly 2/2 epistaxis, possibly 2/2 ESRD - Patient is noted a history of hemorrhoidal bleeding / epistaxis - Hg has trended down from admission without IV fluids / intervention - H&H remains stable over last 24 hours - Reticulocyte count suppressed - Occult blood positive - s/p 8 units PRBC - Give recent stent placement and advanced cardiac history ([address]); c/w ASA / Plavix - Dr. Chow on consult; appreciate his input; patient will pursue maritza luation via EGD / Colonoscopy at a later time given recent cardiac intervention [B] s/p Thrombocytopenia - Counts improved - Hepatitis profile and HIV negative - s/p 6 units of platelets [C] s/p Leukopenia - Hepatitis profile / HIV negative - Peripheral smear 04/15: Negative - s/p Neupogen x 4 - Consulted Dr. De La Vega (Hematology); appreciate their input Abdominal distension - suspected to be 2/2 Ascites - US abdomen 04/13: No evidence of fluid - c/w HD s/p Left jaw pain - CT maxillofacial 04/14: Minimal mucosal thickening is present in the ethmoid and maxillary sinuses - Will have outpatient f/u with dentist CAD s/p CABG / Stents (Hx of [place]) - Patient has a history of 29 stent placements - Most recent stent was placed in February 09, 2018 - Outpatient chinese herbalist is Dr. Alvarado - c/w ASA and Plavix Arrhythmia s/p PM HTN - c/w Sacubitril / Valsartan, Carvedilol, - c/w Midodrine during HD sessions IDDM2 with Hypoglycemia - c/w Levemir and ISS DLP - c/w Pravastatin COPD - No evidence of exacerbation - c/w inhaled therapy as ordered Neuropathy - c/w Gabapentin Gout - c/w Febuxostat RLS - c/w Ropinirole RA - c/w Prednisone - Will hold Methotrexate Poor compliance - Daughter noted poor compliance with medications GERD - c/w Protonix DVT prophylaxis - c/w SCDs Disposition: - Will need line replacement VS,Fishbone, I+O VS, Fishbone, I+O Laboratory Tests 04/26/18 06:18 Red Blood Count 3.36 L, Mean Corpuscular Volume 93.8, Mean Corpuscular Hemoglobin 29.2, Mean Corpuscular Hemoglobin Concent 31.1 L, Red Cell Distribution Width 18.4 H, Calcium Level 8.9 Vital Signs Date Time Temp Pulse Resp B/P (MAP) Pulse Ox O2 Delivery O2 Flow Rate FiO2 04/26/18 10:26 98/ (32) 04/26/18 09:00 70 04/26/18 08:00 97.2 20 88 Room Air 04/26/18 00:00 3.0 I&O- Last 24 Hours up to 6 AM 04/26/18 06:00 Intake Total 1220 ml Output Total 0 ml Balance 1220 ml MELISSA MCDANIEL MD Apr 26, 2018 13:58
[2018-04-26] MEDS: rOPINIRole 1MG TAB PO SCH (21:49)
[2018-04-26] MEDS: GABAPENTIN 100 MG CAP PO SCH (21:49)
[2018-04-26] MEDS: valACYclovir HCL 500 MG TAB PO SCH (21:49)
[2018-04-26] MEDS: PRAVASTATIN 20 MG TAB PO SCH (21:49)
[2018-04-26] MEDS: CLOPIDOGREL 75 MG TAB PO SCH (21:49)
[2018-04-26] MEDS: LEVEMIR (INSULIN DETEMIR) 1 UNITS/0.01ML SC SCH (21:50)
[2018-04-26] MEDS ORDERED: D5W MINI IV SCH (22:15)
[2018-04-26] MEDS ORDERED: ACYCLOVIR IV SCH (22:15)
[2018-04-27] VITALS: BP 116/67
[2018-04-27] MEDS: PIPERACILLIN/TAZOBACTAM SOD 2.25 GM in D5W MINI-BAG PLUS 50 ML IV SCH ×3 (00:29→19:12)
[2018-04-27] MEDS: FAMOTIDINE IV BAG 20 MG in APPROPRIATE DILUENT 1 EA IV SCH ×2 (01:36→17:56)
[2018-04-27 06:07] LABS: HEMATOCRIT 30.3 % (42.0-52.0); HEMOGLOBIN 9.6 g/dl (13.5-17.5); MEAN CORPUSCULAR HEMOGLOBIN 29.5 pg (27.0-33.0); MEAN CORPUSCULAR HGB CONC 31.7 g/dl (32.0-36.5); MEAN CORPUSCULAR VOLUME 93.2 fl (80.0-96.0); PLATELET COUNT, AUTOMATED 167 10^3/uL (150-450); RED BLOOD COUNT 3.25 10^6/uL (4.30-6.10)
[2018-04-27 06:26] LABS: CREATININE FOR GFR 9.78 MG/DL (0.70-1.30); GLOMERULAR FILTRATION RATE 5.8 (>49); POTASSIUM SERUM 4.6 MEQ/L (3.5-5.1)
[2018-04-27 06:51] LABS: BASOPHILS 1 % (0-4); LYMPHOCYTES 7 % (16-52); METAMYELOCYTES 3 % (0-0); MONOCYTES 14 % (0-8); MYELOCYTES 1 % (0-0); NEUTROPHILS 73 % (35-75); PLATELET ESTIMATE NORMAL (NORMAL)
[2018-04-27 06:55] LABS: ANISOCYTOSIS 2+
--- NOTE | 2018-04-27 07:39 | IPN ---
DATE: 04/26/2018 Mr. Clark had another fever last night. He continues complaining of severe pain in his throat area, tongue, difficulty swallowing and burning of his tongue when he eats. He also has a cough which is mostly dry and nonproductive. He has no nausea, vomiting or diarrhea. His hemodialysis catheter was removed today after he has the fever and he was started on IV vancomycin and Zosyn. Chest x-ray shows prominent markings in the lung bases, may be early infiltrate that was a portable. Oropharynx few small ulcerations on the tongue. Heart normal S1-S2. Systolic ejection murmur 2/6 unchanged. Lungs few expiratory wheezes on the bases. Abdomen soft, nontender. Extremities no edema. LABORATORY DATA: White count 6.5, hemoglobin 9.8, hematocrit 31.5, platelets 148, lactic acid 1.3. T-max yesterday was 103.6. Blood cultures two sets were ordered on 04/26 are pending and MRSA screen is pending. IMPRESSION: 1. Recurrent fever. Possible differential diagnosis include bacteremia from hemodialysis catheter that had a tunnel infection. 2. Hospital-acquired pneumonia. The patient has been started on IV vancomycin and Zosyn. 3. Oral ulcers with HSV 1 DNA positive by PCR on blood. The patient will be switched to IV acyclovir 750 mg at bedtime as Valtrex is hard to swallow and has not showed any improvement. 4. Dysphagia. I would consider reconsulting Dr. Chow if the patient continues with no improvement on swallowing, consider EGD. PLAN: We will monitor blood cultures to see if he has bacteremia from line catheter and de-escalate therapy based on results of culture. The patient continues with chronic cough has interstitial prominence on chest CT, wonder if the patient has atypical viral pneumonitis as the cause of his fever rather than fluid overload.
[2018-04-27 08:00] VITALS: BP 112/78
[2018-04-27] MEDS: CALCITRIOL 0.25 MCG CAP (S0169) PO SCH (08:14)
[2018-04-27] MEDS: FOLIC ACID 1 MG TAB PO SCH (08:15)
[2018-04-27] MEDS: HumaLOG INSULIN (NovoLOG) PER UNIT SC SCH ×4 (08:15→21:00)
[2018-04-27] MEDS: VITAMIN D 1,000 INTERNATIONAL UNITS TABLET PO SCH (08:16)
[2018-04-27] MEDS: CYANOCOBALAMIN 500 MCG TAB PO SCH ×3 (08:16→21:04)
[2018-04-27] MEDS: MIDODRINE 2.5 MG TAB PO SCH ×3 (08:16→17:57)
[2018-04-27] MEDS: predniSONE 2.5 MG TAB PO SCH (08:16)
[2018-04-27] MEDS: CARVedilol 3.125 MG TAB PO SCH ×2 (08:16→21:04)
[2018-04-27] MEDS: THIAMINE 100 MG TAB PO SCH (08:17)
[2018-04-27] MEDS: ASPIRIN 81 MG ENTERIC TAB PO SCH (08:17)
[2018-04-27] MEDS: ENTRESTO 24-26MG TABLET (SACUBITRIL/VALSARTAN) PO SCH ×2 (08:17→21:00)
[2018-04-27] MEDS: OXYMETAZOLINE NASAL SPRAY (AFRIN) SCH ×2 (08:18→21:05)
[2018-04-27] MEDS: SODIUM CHLORIDE NASAL 0.65% SPRAY BTL (OCEAN) SCH ×3 (08:18→21:05)
[2018-04-27] MEDS ORDERED: VANCOMYCIN 1000 MG/20 ML VIAL (J3370) IV SCH (09:00)
[2018-04-27 09:17] LABS: MAGNESIUM LEVEL 2.3 MG/DL (1.8-2.4); PHOSPHORUS LEVEL 2.2 MG/DL (2.5-4.9)
[2018-04-27 11:07] LABS: ANTI PARVO VIRUS LEVEL IGG 6.5 index (0.0-0.8); ANTI PARVO VIRUS LEVEL IgM 0.1 index (0.0-0.8); CMV QUANT DNA PCR (PLASMA) Negative (Negative); EBV AB TO NUCLEAR ANTIGEN 99.8 U/mL (0.0-17.9); EBV PCR QUAL WHOLE BLD Positive (Negative); EBV VIRAL CAPSID AG IgG >600.0 U/mL (0.0-17.9); EBV VIRAL CAPSID AG IgM <36.0 U/mL (0.0-35.9)
--- NOTE | 2018-04-27 11:27 | IPN ---
DATE: 04/27/2018 Mr. Clark is seen this morning on his bedside. He is very weak and somewhat confused. Yesterday his Perma-Cath was removed due to a suspicion for infection as he had fever and low blood pressure. His blood pressure seems to be much better today and there is no more fever. Blood cultures have been negative so far. His throat is not feeling well and he has difficulty swallowing, but this morning he did swallow some food. His significant other is on the bedside trying to feed him. PHYSICAL EXAMINATION Temperature is 98.9 degrees Fahrenheit, heart rate 87 per minute, respiratory rate 20 per minute. Blood pressure 112/78 mmHg and oxygen saturation 100% on room air. His head is atraumatic. 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 Neck veins are about 10-11 cm above sternal angle. Oral mucosa is somewhat dry. His heart sounds are regular and lungs with diminished breath sounds at bases. Abdomen is soft and nontender and bowel sounds are present. Extremities have no cyanosis or clubbing. Neurologically, he is somewhat confused and tremulous. He did answer some questions appropriately but on other questions he was not correct. LABORATORIES: Today's labs show WBC count 9.0, hemoglobin 9.6 and hematocrit 30.3. Platelets are up to 167. Sodium 137, potassium 4.6, CO2 27, BUN 70 and creatinine 9.78. Calcium level is 9.0 and lactic acid level is now down to 1.1. Phosphorus is 2.2 today. PROBLEMS: 1. Altered mentation. Probably the patient is uremic. I do not feel that this is sepsis. He has also been receiving acyclovir 750 mg intravenously which could be contributing to his altered mentation. The patient has not been dialyzed since Wednesday. We plan to dialyze him today with a temporary femoral catheter placement as he does not have any other dialysis access. I have discussed with his significant other who consented for a temporary dialysis catheter placement. We will get a Perma-Cath placed tomorrow. 2. Fever and hypotension, probably sepsis. The patient remains on vancomycin and Zosyn. His Perma-Cath was removed yesterday and blood cultures have been negative so far. We will continue with midodrine 2.5 mg three times a day. 3. Congestive heart failure. His volume status is somewhat decompensated. He remains on low dose of Entresto and Carvedilol because of severe systolic congestive heart failure. 4. Pancytopenia. His pancytopenia has improved significantly and there is no active bleeding. 5. Herpes simplex in oral cavity. The patient is on acyclovir 750 mg, and I am going to cut down the dose to 500 mg every 24 hours.
[2018-04-27] MEDS ORDERED: SLF 3 ML SYR IV PRN (11:45)
--- NOTE | 2018-04-27 13:36 | IPNPDOC ---
Text Note Date of Service The patient was seen on 04/27/18. NOTE Subjective: Patient is a 62-year-old male with a PMHx of ESRD on HD (TTS), CAD s/p CABG / Stents (Hx of [place]), Systolic CHF, s/p PM, HTN, DLP, COPD, who presented to the ER with complaints of SOB. In the ER, patient was found to have fluid overload and was admitted to hospitalist service for further evaluation and treatment. Patient was seen and examined at the bedside. Currently feels weaker than usual. Denies any chest pain, short of breath or palpitations. Denies nausea, vomiting, abdominal pain, constipation or diarrhea. Objective: Vitals (See below) General: Lying in bed, no acute distress, comfortable, Awake / Alert - slow to respond HEENT: NC, AT CVS: RRR, +S1S2 Lungs: Fair air entry b/l, no evidence of wheezing / rhonchi / rales Abdomen: Soft, no tenderness, still mildly distended Extremities: LE without significant edema b/l, - Calf tenderness Assessment and plan: Slow to respond - possibly 2/2 Uremia, possibly 2/2 infection, possibly 2/2 electrolyte abnormalities - Slow to respond; remains oriented x 3 - No focal weakness - Will have temporary dialysis catheter placed today for HD, then removed Fever - possibly 2/2 Pneumonia / Pneumonitis (HCAP), possibly 2/2 line infection - Patient notes that he is experiencing some cough - non-productive - Patient's blood pressure was noted to be on the lower side of normal today - Has had febrile episodes yesterday evening - CXR 04/26: Prominent markings in the lung bases may be early infiltrate. - Case discussed with Dr. Cruz (Vascular surgery); Line removed 04/26 - c/w Vancomycin and Zosyn (Day #2); s/p Ceftaroline (7 day course) Odynophagia / Dysphagia - possibly 2/2 HSV infection - c/w Valacyclovir; s/p Fluconazole s/p Fluid overload - likely 2/2 acute decompensated systolic CHF / ESRD on HD (TTS) - No significant signs of fluid overload - BNP significantly elevated on admission - CXR 04/11: 1. Interstitial edema. 2. Cardiomegaly. - c/w HD; will have catheter replaced tomorrow - Nephrology (Dr. Alejo) on consultation; appreciate their input s/p Pancytopenia - possibly 2/2 viral illness [A]Normocytic anemia - likely 2/2 GI source possibly 2/2 epistaxis, possibly 2/2 ESRD - Patient is noted a history of hemorrhoidal bleeding / epistaxis - H&H stable - Reticulocyte count suppressed / Occult blood positive - s/p 8 units PRBC - Give recent stent placement and advanced cardiac history (29 stent placements); c/w ASA / Plavix - Dr. Chow on consult; appreciate his input; patient will pursue evaluation via EGD / Colonoscopy at a later time given recent cardiac intervention [B] s/p Thrombocytopenia - Counts improved - Hepatitis profile and HIV negative - s/p 6 units of platelets [C] s/p Leukopenia - Hepatitis profile / HIV negative - Peripheral smear 04/15: Negative - s/p Neupogen x 4 - Consulted Dr. De La Vega (Hematology); appreciate their input Abdominal distension - suspected to be 2/2 Ascites - US abdomen 04/13: No evidence of fluid - c/w HD s/p Left jaw pain - CT maxillofacial 04/14: Minimal mucosal thickening is present in the ethmoid and maxillary sinuses - Will have outpatient f/u with dentist CAD s/p CABG / Stents (Hx of [place]) - Patient has a history of 29 stent placements - Most recent stent was placed in February 09, 2018 - Outpatient electrical and instrument engineer is Dr. Alvarado - c/w ASA and Plavix Arrhythmia s/p PM HTN - c/w Sacubitril / Valsartan, Carvedilol, - c/w Midodrine during HD sessions IDDM2 with Hypoglycemia - c/w Levemir and ISS DLP - c/w Pravastatin COPD - No evidence of exacerbation - c/w inhaled therapy as ordered Neuropathy - c/w Gabapentin Gout - c/w Febuxostat RLS - c/w Ropinirole RA - c/w Prednisone - Will hold Methotrexate Poor compliance - Daughter noted poor compliance with medications GERD - c/w Protonix DVT prophylaxis - c/w SCDs Disposition: - s/p HD catheter removal on 04/26; replacement within 24-48 hours VS,Fishbone, I+O VS, Fishbone, I+O Laboratory Tests 04/27/18 05:40 Red Blood Count 3.25 L, Mean Corpuscular Volume 93.2, Mean Corpuscular Hemoglobin 29.5, Mean Corpuscular Hemoglobin Concent 31.7 L, Red Cell Distribution Width 18.0 H, Calcium Level 9.0 Vital Signs Date Time Temp Pulse Resp B/P (MAP) Pulse Ox O2 Delivery O2 Flow Rate FiO2 04/27/18 08:16 87 112/78 04/27/18 08:00 98.9 20 100 Room Air 04/27/18 04:00 3.0 I&O- Last 24 Hours up to 6 AM 04/27/18 06:00 Intake Total 990 ml Output Total 0 ml Balance 990 ml MELISSA MCDANIEL MD Apr 27, 2018 13:36
[2018-04-27] MEDS: SLF 3 ML SYR IV SCH ×2 (14:00→21:05)
--- NOTE | 2018-04-27 14:58 | RO ---
DATE OF PROCEDURE: 04/27/2018 PROCEDURE: Right femoral vein hemodialysis catheter. PREPROCEDURE INDICATION: End-stage renal disease, uremia and lack of dialysis access. POSTPROCEDURE DIAGNOSIS: End-stage renal disease, uremia and lack of dialysis access. SURGEON: Dr. José Dinh LIFE SKILLS COORDINATOR VOLUNTEER: None. ANESTHESIA: 1% lidocaine. DESCRIPTION: Informed consent obtained from the patient's and the patient also agreed, however, he was too weak to sign. The patient was brought to dialysis room and right femoral vein area cleaned and prepped in usual sterile fashion. We accidentally stuck his femoral artery twice with the needle, but then digital pressure held and there was no bleeding. On third attempt right femoral vein was accessed and guidewire advanced. A small skin incision made with the knife and the skin and soft tissues dilated with skin dilator. A 6-inch long double-lumen hemodialysis catheter then advanced over guidewire without any difficulty. Good venous blood return obtained from both ports and dialysis initiated. The patient tolerated the procedure well. There was no hematoma or bleeding after the completion of procedure. No heparin is being used for dialysis today.
[2018-04-27] MEDS ORDERED: VANCOMYCIN HCL 1,000 MG, VIAL MATE ADAPTER 1 EACH in D5W 250 ML IV SCH (15:45)
[2018-04-27] MEDS: **VANCO AFTER HD** MISC XX SCH (16:00)
[2018-04-27 16:50] VITALS: BP 98/62
[2018-04-27 20:00] VITALS: BP 119/61
[2018-04-27] MEDS: LEVEMIR (INSULIN DETEMIR) 1 UNITS/0.01ML SC SCH (21:02)
[2018-04-27] MEDS: ACYCLOVIR 500 MG in D5W MINI-BAG PLUS 100 ML IV SCH (21:02)
[2018-04-27] MEDS: PRAVASTATIN 20 MG TAB PO SCH (21:03)
[2018-04-27] MEDS: CLOPIDOGREL 75 MG TAB PO SCH (21:04)
[2018-04-27] MEDS: GABAPENTIN 100 MG CAP PO SCH (21:04)
[2018-04-27] MEDS: rOPINIRole 1MG TAB PO SCH (21:04)
[2018-04-28] VITALS: BP 110/60
[2018-04-28] MEDS: PIPERACILLIN/TAZOBACTAM SOD 2.25 GM in D5W MINI-BAG PLUS 50 ML IV SCH ×3 (00:22→19:30)
[2018-04-28] MEDS: FAMOTIDINE IV BAG 20 MG in APPROPRIATE DILUENT 1 EA IV SCH ×2 (02:53→14:00)
[2018-04-28] MEDS: SLF 3 ML SYR IV SCH ×3 (05:22→22:00)
[2018-04-28 05:55] LABS: HEMATOCRIT 27.8 % (42.0-52.0); HEMOGLOBIN 8.7 g/dl (13.5-17.5); MEAN CORPUSCULAR HEMOGLOBIN 28.6 pg (27.0-33.0); MEAN CORPUSCULAR HGB CONC 31.3 g/dl (32.0-36.5); MEAN CORPUSCULAR VOLUME 91.4 fl (80.0-96.0); PLATELET COUNT, AUTOMATED 182 10^3/uL (150-450); RED BLOOD COUNT 3.04 10^6/uL (4.30-6.10); WHITE BLOOD COUNT 9.3 10^3/uL (4.0-10.0)
[2018-04-28 06:17] LABS: CALCIUM LEVEL 8.3 MG/DL (8.8-10.2); CREATININE FOR GFR 6.96 MG/DL (0.70-1.30); GLOMERULAR FILTRATION RATE 8.6 (>49); PHOSPHORUS LEVEL 2.1 MG/DL (2.5-4.9); POTASSIUM SERUM 4.3 MEQ/L (3.5-5.1)
[2018-04-28 06:35] LABS: EOSINOPHILS 1 % (0-5); LYMPHOCYTES 6 % (16-52); METAMYELOCYTES 1 % (0-0); MONOCYTES 9 % (0-8); MYELOCYTES 1 % (0-0); NEUTROPHILS 77 % (35-75)
[2018-04-28 06:36] LABS: ANISOCYTOSIS 2+; PLATELET ESTIMATE NORMAL (NORMAL)
[2018-04-28] MEDS: HumaLOG INSULIN (NovoLOG) PER UNIT SC SCH ×4 (07:30→20:38)
[2018-04-28 08:00] VITALS: BP 100/58
[2018-04-28 08:14] LABS: VANCOMYCIN RANDOM 23.5 UG/ML
[2018-04-28] MEDS: ASPIRIN 81 MG ENTERIC TAB PO SCH (08:54)
[2018-04-28] MEDS: MIDODRINE 2.5 MG TAB PO SCH ×3 (08:54→16:00)
[2018-04-28] MEDS ORDERED: VANCOMYCIN 1000 MG/20 ML VIAL (J3370) IP SCH (09:00)
[2018-04-28] MEDS: ENTRESTO 24-26MG TABLET (SACUBITRIL/VALSARTAN) PO SCH ×2 (10:00→20:37)
[2018-04-28] MEDS: VITAMIN D 1,000 INTERNATIONAL UNITS TABLET PO SCH (10:00)
[2018-04-28] MEDS: CYANOCOBALAMIN 500 MCG TAB PO SCH ×3 (10:01→20:37)
[2018-04-28] MEDS: THIAMINE 100 MG TAB PO SCH (10:04)
[2018-04-28] MEDS: predniSONE 2.5 MG TAB PO SCH (10:04)
[2018-04-28] MEDS: CALCITRIOL 0.25 MCG CAP (S0169) PO SCH (10:04)
[2018-04-28] MEDS: CARVedilol 3.125 MG TAB PO SCH ×2 (10:05→20:35)
[2018-04-28] MEDS: FOLIC ACID 1 MG TAB PO SCH (10:07)
[2018-04-28] MEDS: SODIUM CHLORIDE NASAL 0.65% SPRAY BTL (OCEAN) SCH ×3 (10:07→20:38)
[2018-04-28] MEDS: OXYMETAZOLINE NASAL SPRAY (AFRIN) SCH ×2 (10:07→20:38)
[2018-04-28] MEDS ORDERED: LIDOCAINE 2% MDV 20 ML VIAL As Ordered ONE (11:19)
--- NOTE | 2018-04-28 11:27 | IPNPDOC ---
Text Note Date of Service The patient was seen on 04/28/18. NOTE Subjective: Patient is a 62-year-old male with a PMHx of ESRD on HD (TTS), CAD s/p CABG / Stents (Hx of [place]), Systolic CHF, s/p PM, HTN, DLP, COPD, who presented to the ER with complaints of SOB. In the ER, patient was found to have fluid overload and was admitted to hospitalist service for further evaluation and treatment. Patient was seen and examined at the bedside. Patient appears slightly confused this morning is slow to respond. He denies any chest pain, jaundice breath or palpitations. Denies any nausea, vomiting, abdominal pain, constipation or diarrhea. Objective: Vitals (See below) General: Lying in bed, no acute distress, comfortable, Awake / Alert - again slow to respond HEENT: NC, AT CVS: RRR, +S1S2 Lungs: Fair air entry b/l, there does not appear to be any auscultated evidence of rhonchi, wheezing or rales Abdomen: Soft, no tenderness or significant distention Extremities: LE without significant edema b/l appreciated, - Calf tenderness Assessment and plan: Slow to respond - possibly 2/2 Uremia, possibly 2/2 infection, possibly 2/2 electrolyte abnormalities - Slow to respond; remains oriented x 3 - Yesterday patient had a significant improvement in his mentation after receiving dialysis - Physical does not reveal any focal weakness - s/p temporary dialysis catheter on 04/27; plan for new HD catheter placement today s/p Fever - possibly 2/2 Pneumonia / Pneumonitis (HCAP), possibly 2/2 line infection - Patient notes that he is experiencing some cough - non-productive - Low grade fever this evening; remains hemodynamically stable - CXR 04/26: Prominent markings in the lung bases may be early infiltrate. - Case discussed with Dr. Cruz (Vascular surgery); Line removed 04/26 - c/w Vancomycin and Zosyn (Day #3); s/p Ceftaroline (7 day course) - Dr. 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 Interstitial edema. 2. Cardiomegaly. - c/w HD; will have catheter replaced tomorrow - Nephrology (Dr. Alejo) on consultation; appreciate their input s/p Pancytopenia - possibly 2/2 viral illness [A]Normocytic anemia - likely 2/2 GI source possibly 2/2 epistaxis, possibly 2/2 ESRD - Patient is noted a history of hemorrhoidal bleeding / epistaxis - H&H has had slight drop since yesterday - Reticulocyte count suppressed / Occult blood positive - s/p 8 units PRBC - Give recent stent placement and advanced cardiac history (29 stent placements); c/w ASA / Plavix - Dr. Chow on consult; appreciate his input; patient will pursue evaluation via EGD / Colonoscopy at a later time given recent cardiac intervention [B] s/p Thrombocytopenia - Counts improved - Hepatitis profile and HIV negative - s/p 6 units of platelets [C] s/p Leukopenia - Hepatitis profile / HIV negative - Peripheral smear 04/15: Negative - s/p Neupogen x 4 - Consulted Dr. De La Vega (Hematology); appreciate their input Abdominal distension - suspected to be 2/2 Ascites - US abdomen 04/13: No evidence of fluid - c/w HD s/p Left jaw pain - CT maxillofacial 04/14: Minimal mucosal thickening is present in the ethmoid and maxillary sinuses - Will have outpatient f/u with dentist CAD s/p CABG / Stents (Hx of [place]) - Patient has a history of 29 stent placements - Most recent stent was placed in February 09, 2018 - Outpatient icebox worker is Dr. Alvarado - c/w ASA and Plavix Arrhythmia s/p PM HTN - c/w Sacubitril / Valsartan, Carvedilol, - c/w Midodrine during HD sessions IDDM2 with Hypoglycemia - c/w Levemir and ISS DLP - c/w Pravastatin COPD - No evidence of exacerbation - c/w inhaled therapy as ordered Neuropathy - c/w Gabapentin Gout - c/w Febuxostat RLS - c/w Ropinirole RA - c/w Prednisone - Will hold Methotrexate Poor compliance - Daughter noted poor compliance with medications GERD - c/w Protonix DVT prophylaxis - c/w SCDs Disposition: - New HD catheter to be placed today - Antibiotic duration as per ID VS,Natalia, I+O VS, Natalia, I+O Laboratory Tests 04/28/18 05:36 Red Blood Count 3.04 L, Mean Corpuscular Volume 91.4, Mean Corpuscular Hemoglobin 28.6, Mean Corpuscular Hemoglobin Concent 31.3 L, Red Cell Distribution Width 17.9 H, Calcium Level 8.3 L Vital Signs Date Time Temp Pulse Resp B/P (MAP) Pulse Ox O2 Delivery O2 Flow Rate FiO2 04/28/18 10:05 87 100/58 04/28/18 08:00 98.6 20 95 2.0 04/27/18 08:00 Room Air I&O- Last 24 Hours up to 6 AM 04/28/18 06:00 Intake Total 880 ml Output Total 2000 ml Balance -1120 ml MELISSA MCDANIEL MD Apr 28, 2018 11:26
[2018-04-28] MEDS ORDERED: HEPARIN 1,000 UNITS/ML 10ML VIAL (FOR RADIOLOGY& DIALYSIS ONLY) As Ordered ONE (11:36)
[2018-04-28] MEDS ORDERED: HEPARIN 1,000 UNITS/ML 10ML VIAL (FOR RADIOLOGY& DIALYSIS ONLY) XX ONE (11:45)
[2018-04-28 12:00] VITALS: BP 118/63
[2018-04-28 12:41] LABS: HEMATOCRIT 28.7 % (42.0-52.0)
[2018-04-28 14:36] LABS: C REACTIVE PROTEIN QUANTITATIV 27.9 MG/DL (0.00-0.30)
[2018-04-28] MEDS: **VANCO AFTER HD** MISC XX SCH (16:00)
--- NOTE | 2018-04-28 18:01 | IPN ---
DATE: 04/28/2018 Mr. Potter is seen this morning on his bedside. He is still weak and lethargic. He is not shaking anymore and not eating much. He underwent hemodialysis yesterday via a right femoral vein temporary hemodialysis catheter placement, which he tolerated very well. We were able to take off two liters of fluids. The patient still complains of shortness of breath but denies any vomiting or diarrhea. He did not eat anything so far this morning. On physical exam, temperature 98.6 degrees Fahrenheit, heart rate 87 per minute, and respiratory rate 20 per minute. Blood pressure 100/58 mmHg and oxygen saturation 95% on two liters of oxygen. His head is atraumatic. Neck is supple and jugular venous distention (JVD) is elevated at least 10 cm above sternal angle. Oral mucosa is dry and lips are crusty. His heart sounds are regular and lungs with diminished breath sounds and bibasilar rales. Abdomen: Soft, nontender and without palpable organomegaly. Bowel sounds are normal. Extremities have no cyanosis or clubbing. The right femoral area from dialysis catheter site looks clean and without any hematoma or bleeding. Right internal jugular site where PermCath was removed two days ago is also clean, without drainage or bleeding. There is no sign of infection. Today's labs show WBC count 9.3, hemoglobin 8.7 and hematocrit 27.8. Platelets 182. Sodium 139, potassium 4.3, CO2 27, BUN 45, and creatinine 6.96. Calcium level is 8.3 and phosphorus 2.1. PROBLEMS: 1. End-stage renal disease. Patient was dialyzed yesterday, and we felt that he had uremic symptoms, which has improved. He is not tremulous or shaky anymore. We plan to dialyze him again today. I have discussed with Dr. Cruz. He is going to put a new PermCath late this morning or early afternoon, and the patient will be dialyzed shortly after that. 2. Systolic congestive heart failure, acute on chronic. His volume status is somewhat decompensated once again. We removed two liters of fluid yesterday without any significant problem. We plan to remove another two liters today. 3. Pancytopenia. His pancytopenia has completely resolved, and he has been afebrile. He is still on antibiotics because of fever a couple of days ago; however, all cultures have been negative. I would suggest to hospitalist service to consider stopping the antibiotics after today. He is going to get a new PermCath placed, so I will want to give him one dose of vancomycin after dialysis today, but then he would probably not need antibiotics anymore. 4. Herpes stomatitis. The patient feels that his throat and tongue is much better now. He has been on Acyclovir for the last few days. I am concerned about possible altered mentation related to antiviral therapy. The dose was cut down yesterday to 500 mg daily, and I will consider to stop that also after one more dose. 5. Generalized weakness and deconditioning. He is still quite weak and deconditioned. His medical problems are improving, and we can push for physical therapy and get him up and start walking. MTDD
[2018-04-28 18:15] VITALS: BP 117/69
[2018-04-28 20:00] VITALS: BP 102/72
[2018-04-28] MEDS ORDERED: VANCOMYCIN 1000 MG/20 ML VIAL (J3370) As Ordered ONE (20:26)
[2018-04-28] MEDS: rOPINIRole 1MG TAB PO SCH (20:34)
[2018-04-28] MEDS: PRAVASTATIN 20 MG TAB PO SCH (20:34)
[2018-04-28] MEDS: CLOPIDOGREL 75 MG TAB PO SCH (20:38)
[2018-04-28] MEDS: GABAPENTIN 100 MG CAP PO SCH (20:38)
[2018-04-28] MEDS: LEVEMIR (INSULIN DETEMIR) 1 UNITS/0.01ML SC SCH (20:39)
[2018-04-28] MEDS: ACYCLOVIR 500 MG in D5W MINI-BAG PLUS 100 ML IV SCH (22:24)
[2018-04-28 23:59] VITALS: BP 134/63
[2018-04-29] MEDS: PIPERACILLIN/TAZOBACTAM SOD 2.25 GM in D5W MINI-BAG PLUS 50 ML IV SCH ×2 (00:45→09:43)
[2018-04-29] MEDS: FAMOTIDINE IV BAG 20 MG in APPROPRIATE DILUENT 1 EA IV SCH ×2 (02:00→15:47)
[2018-04-29 04:00] VITALS: BP 113/65
[2018-04-29] MEDS: ACETAMINOPHEN TAB 650MG DOSE (2X325MG) PO PRN ×2 (05:03→15:09)
[2018-04-29 05:21] LABS: HEMATOCRIT 28.6 % (42.0-52.0); HEMOGLOBIN 8.8 g/dl (13.5-17.5); MEAN CORPUSCULAR HEMOGLOBIN 28.8 pg (27.0-33.0); MEAN CORPUSCULAR HGB CONC 30.8 g/dl (32.0-36.5); MEAN CORPUSCULAR VOLUME 93.5 fl (80.0-96.0); PLATELET COUNT, AUTOMATED 196 10^3/uL (150-450); RED BLOOD COUNT 3.06 10^6/uL (4.30-6.10); WHITE BLOOD COUNT 9.7 10^3/uL (4.0-10.0)
[2018-04-29 05:37] LABS: CALCIUM LEVEL 8.9 MG/DL (8.8-10.2); CREATININE FOR GFR 4.92 MG/DL (0.70-1.30); GLOMERULAR FILTRATION RATE 12.9 (>49); PHOSPHORUS LEVEL 1.9 MG/DL (2.5-4.9); POTASSIUM SERUM 3.8 MEQ/L (3.5-5.1)
[2018-04-29 05:58] LABS: EOSINOPHILS 1 % (0-5); LYMPHOCYTES 2 % (16-52); METAMYELOCYTES 1 % (0-0); MONOCYTES 9 % (0-8); NEUTROPHILS 83 % (35-75); PLATELET ESTIMATE NORMAL (NORMAL)
[2018-04-29 05:59] LABS: ANISOCYTOSIS 1+
[2018-04-29] MEDS: SLF 3 ML SYR IV SCH ×3 (06:00→21:01)
[2018-04-29] MEDS: HumaLOG INSULIN (NovoLOG) PER UNIT SC SCH ×4 (07:30→20:48)
[2018-04-29 07:43] LABS: C REACTIVE PROTEIN QUANTITATIV 27.7 MG/DL (0.00-0.30)
[2018-04-29 08:00] VITALS: BP 114/58
[2018-04-29] MEDS: ENTRESTO 24-26MG TABLET (SACUBITRIL/VALSARTAN) PO SCH ×2 (09:00→20:43)
[2018-04-29] MEDS: FOLIC ACID 1 MG TAB PO SCH (09:44)
[2018-04-29] MEDS: CALCITRIOL 0.25 MCG CAP (S0169) PO SCH (09:44)
[2018-04-29] MEDS: CYANOCOBALAMIN 500 MCG TAB PO SCH ×3 (09:44→20:43)
[2018-04-29] MEDS: ASPIRIN 81 MG ENTERIC TAB PO SCH (09:45)
[2018-04-29] MEDS: VITAMIN D 1,000 INTERNATIONAL UNITS TABLET PO SCH (09:45)
[2018-04-29] MEDS: THIAMINE 100 MG TAB PO SCH (09:45)
[2018-04-29] MEDS: CARVedilol 3.125 MG TAB PO SCH ×2 (09:51→20:43)
[2018-04-29] MEDS: predniSONE 2.5 MG TAB PO SCH (09:51)
[2018-04-29] MEDS: OXYMETAZOLINE NASAL SPRAY (AFRIN) SCH ×2 (09:51→20:47)
[2018-04-29] MEDS: SODIUM CHLORIDE NASAL 0.65% SPRAY BTL (OCEAN) SCH ×3 (09:51→20:48)
[2018-04-29] MEDS: MIDODRINE 2.5 MG TAB PO SCH ×3 (09:51→16:00)
--- NOTE | 2018-04-29 10:53 | IPNPDOC ---
Text Note Date of Service The patient was seen on 04/29/18. NOTE Subjective: Patient is a 62-year-old male with a PMHx of ESRD on HD (TTS), CAD s/p CABG / Stents (Hx of [place]), Systolic CHF, s/p PM, HTN, DLP, COPD, who presented to the ER with complaints of SOB. In the ER, patient was found to have fluid overload and was admitted to hospitalist service for further evaluation and treatment. Patient was seen and examined at the bedside. Patient is oriented this morning. Does not appear confused. Denies chest pain, shortness breath, palpitations. Denies nausea, vomiting, abdominal pain, constipation, diarrhea. Objective: Vitals (See below) General: Lying in bed, no acute distress, comfortable, Awake / Alert, Oriented x3, Aware of president HEENT: NC, AT CVS: RRR, +S1S2 Chest: New HD catheter present Lungs: Fair air entry b/l, no appreciable wheezing / rales / rhonchi Abdomen: Soft, non-tender, mild distention Extremities: LE without edema, - Calf tenderness Assessment and plan: s/p Confusion / Slow mentation - possibly 2/2 Uremia, possibly 2/2 infection, possibly 2/2 electrolyte abnormalities - Currently is oriented x 3 - Physical without any focal weakness - c/w HD as scheduled / abx as [id number] below s/p Fever - possibly 2/2 Pneumonia / Pneumonitis (HCAP), possibly 2/2 line infection, Possible HSV infectino - Currently reports a mild cough / throat pain - Continues to experience low grade fever - CXR 04/26: Prominent markings in the lung bases may be early infiltrate. - Case discussed with Dr. Cruz (Vascular surgery); Line removed 04/26; New catheter placed on 04/28 - c/w Vancomycin and Zosyn (Day #4); s/p Ceftaroline (7 day course) - Dr. Ellison on consultation; appreciate their input Odynophagia / Dysphagia - possibly 2/2 HSV infection - Will discuss with Infectious disease / GI about possible EGD for visualization of ulcers - c/w Valacyclovir; s/p Fluconazole s/p Fluid overload - likely 2/2 acute decompensated systolic CHF / ESRD on HD (TTS) - No significant signs of fluid overload - BNP significantly elevated on admission - CXR 04/11: 1. Interstitial edema. 2. Cardiomegaly. - c/w HD; will have catheter replaced tomorrow - Nephrology (Dr. Alejo) on consultation; appreciate their input s/p Pancytopenia - possibly 2/2 viral illness [A]Normocytic anemia - likely 2/2 GI source possibly 2/2 epistaxis, possibly 2/2 ESRD - Patient is noted a history of hemorrhoidal bleeding / epistaxis - H&H has had slight drop since yesterday - Reticulocyte count suppressed / Occult blood positive - s/p 8 units PRBC - Give recent stent placement and advanced cardiac history (29 stent placements); c/w ASA / Plavix - Dr. Chow on consult; appreciate his input; patient will pursue evaluation via EGD / Colonoscopy at a later time given recent cardiac intervention [B] s/p Thrombocytopenia - Counts improved - Hepatitis profile and HIV negative - s/p 6 units of platelets [C] s/p Leukopenia - Hepatitis profile / HIV negative - Peripheral smear 04/15: Negative - s/p Neupogen x 4 - Consulted Dr. De La Vega (Hematology); appreciate their input Abdominal distension - suspected to be 2/2 Ascites - US abdomen 04/13: No evidence of fluid - c/w HD s/p Left jaw pain - CT maxillofacial 04/14: Minimal mucosal thickening is present in the ethmoid and maxillary sinuses - Will have outpatient f/u with dentist CAD s/p CABG / Stents (Hx of [place]) - Patient has a history of 29 stent placements - Most recent stent was placed in February 09, 2018 - Outpatient porcelain buildup assistant is Dr. Alvarado - c/w ASA and Plavix Arrhythmia s/p PM HTN - c/w Sacubitril / Valsartan, Carvedilol, - c/w Midodrine during HD sessions IDDM2 with Hypoglycemia - c/w Levemir and ISS DLP - c/w Pravastatin COPD - No evidence of exacerbation - c/w inhaled therapy as ordered Neuropathy - c/w Gabapentin Gout - c/w Febuxostat RLS - c/w Ropinirole RA - c/w Prednisone - Will hold Methotrexate Poor compliance - Daughter noted poor compliance with medications GERD - c/w Protonix DVT prophylaxis - c/w SCDs Disposition: - Awaiting clinical improvement VS,Natalia, I+O VS, Fishbone, I+O Laboratory Tests 04/28/18 12:18 04/29/18 04:59 Red Blood Count 3.06 L, Mean Corpuscular Volume 93.5, Mean Corpuscular Hemoglobin 28.8, Mean Corpuscular Hemoglobin Concent 30.8 L, Red Cell Distribution Width 17.6 H, Calcium Level 8.9 Vital Signs Date Time Temp Pulse Resp B/P (MAP) Pulse Ox O2 Delivery O2 Flow Rate FiO2 04/29/18 09:51 81 114/68 04/29/18 08:00 96.9 18 98 04/29/18 06:55 2.0 04/27/18 08:00 Room Air I&O- Last 24 Hours up to 6 AM 04/29/18 06:00 Intake Total 590 ml Output Total 2000 ml Balance -1410 ml MELISSA MCDANIEL MD Apr 29, 2018 10:53
[2018-04-29 12:00] VITALS: BP 117/59
[2018-04-29] MEDS ORDERED: HEPARIN 1,000 UNITS/ML 10ML VIAL (FOR RADIOLOGY& DIALYSIS ONLY) IV ONE (13:00)
[2018-04-29] MEDS ORDERED: HEPARIN 1,000 UNITS/ML 10ML VIAL (FOR RADIOLOGY& DIALYSIS ONLY) XX ONE (13:00)
--- NOTE | 2018-04-29 15:15 | IPN ---
DATE: Mr. Clark is seen this morning on his bedside. He is much more awake and able to have a conversation. He had another hemodialysis yesterday. He still has some dyspnea particularly on exertion but denies any chest pain. His sore throat and difficulty swallowing persists. He is being treated for herpes simplex with acyclovir. He is able to drink liquids and eat ice cream. PHYSICAL EXAMINATION: Temperature 96.9 degrees Fahrenheit, heart rate 86 per minute and respiratory rate 18 per minute. Blood pressure 114/58 mmHg and oxygen saturation 98%. His head is atraumatic. His right eye is blind. Neck is supple and JVD is about 10 cm above sternal angle. He has a new right internal jugular vein hemodialysis catheter. His heart sounds are regular and lungs with slightly diminished breath sounds at bases. Abdomen: Soft and nontender and bowel sounds are normal. Extremities have no cyanosis or clubbing. Neurologically he is much more awake and alert today. Today's labs show WBC count 9.7, hemoglobin 8.8 and hematocrit 28.6. Platelets 196. Sodium 137, potassium 3.8, CO2 29, BUN 24 and creatinine 4.92. Calcium 8.9 and phosphorus 1.9. PROBLEMS: 1. End-stage renal disease. The patient was dialyzed yesterday after he had a new Perma-Cath placed. He tolerated dialysis well and catheter function. 2. Congestive heart failure. His volume status is slightly decompensated and he is currently just drinking oral fluids as he has difficulty swallowing solid food. We will ultrafiltrate him today and try to remove 2 liters of fluid in order to keep his keep his volume status under control. 3. Hyperstomatitis and esophagitis. The patient is being treated with acyclovir and is being followed by infectious disease. His blood cultures have been negative for any bacterial infection so his broad-spectrum antibiotics are being stopped. 4. Anemia. At present anemia is stable and we will continue to monitor closely. There is no indication for a transfusion at present. 5. Generalized weakness and deconditioning. The patient will probably need some rehab prior to transfer. He still very weak.
--- NOTE | 2018-04-29 15:18 | IPN ---
DATE: 04/29/2018 Solitario continues to complain of mouth pain as his major complaint. Otherwise things have gotten better. He has a fever of 100.7 this morning. Currently, 98.7. Pulse 84, respirations 18, blood pressure 117/59, O2 sat 97% on room air. He has a new hemodialysis catheter in his right chest, which was done yesterday without complication. LABORATORY DATA: White count is 9.7, hemoglobin 8.8, hematocrit 28.6, platelets 196, 83% neutrophils, 4% bands, 2% lymphocytes, 9% monocytes. Sodium 137, potassium 3.8, chloride 100, bicarbonate 29, BUN 24, creatinine 4.92, glucose 91, calcium 8.9, phosphorus 1.9, magnesium 2, CRP 27.7, which is quite concerning which has increased from 9.36 last week. EBV serology was positive, HSV DNA PCR was also positive. Parvovirus IgG positive, IgM negative. CMV DNA PCR was negative. PHYSICAL EXAMINATION: Oropharynx with no obvious lesions. No thrush. The patient points towards the base of his tongue, which I cannot see anything but venous congestion. Heart: Normal S1, S2 with a systolic ejection murmur, 2/6, unchanged. Lungs: Crackles at the bases. Abdomen is soft, nontender. Extremities: No edema. He has a new right hemodialysis catheter. Previous site of hemodialysis catheter in the right IJ is nontender. Left arm rash has resolved. IMPRESSION: 1. 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 The patient was on IV acyclovir, currently switched to Valtrex 500 mg daily. 2. Exit site infection of hemodialysis catheter. This has been removed and changed. Cultures have remained negative and therefore antibiotics will be discontinued. PLAN: Continue to monitor fever and oral pain. Consider obtaining oral surgery consultation regarding the pain. I am still concerned that he is breaking through with fevers and has an elevated CRP.
[2018-04-29 16:00] VITALS: BP 110/61
[2018-04-29 20:00] VITALS: BP 115/58
[2018-04-29] MEDS: PRAVASTATIN 20 MG TAB PO SCH (20:42)
[2018-04-29] MEDS: rOPINIRole 1MG TAB PO SCH (20:42)
[2018-04-29] MEDS: CLOPIDOGREL 75 MG TAB PO SCH (20:43)
[2018-04-29] MEDS: GABAPENTIN 100 MG CAP PO SCH (20:43)
[2018-04-29] MEDS: valACYclovir HCL 500 MG TAB PO SCH (20:47)
[2018-04-29] MEDS: LEVEMIR (INSULIN DETEMIR) 1 UNITS/0.01ML SC SCH (20:47)
[2018-04-29 23:59] VITALS: BP 104/58
[2018-04-30] MEDS ORDERED: MAALOX 30 ML SUSP *UDC PO ONE (00:45)
[2018-04-30] MEDS: FAMOTIDINE IV BAG 20 MG in APPROPRIATE DILUENT 1 EA IV SCH (01:25)
[2018-04-30 04:45] VITALS: BP 115/51
[2018-04-30 05:37] LABS: HEMATOCRIT 30.6 % (42.0-52.0); HEMOGLOBIN 9.6 g/dl (13.5-17.5); MEAN CORPUSCULAR HEMOGLOBIN 28.3 pg (27.0-33.0); MEAN CORPUSCULAR HGB CONC 31.4 g/dl (32.0-36.5); MEAN CORPUSCULAR VOLUME 90.3 fl (80.0-96.0); PLATELET COUNT, AUTOMATED 231 10^3/uL (150-450); RED BLOOD COUNT 3.39 10^6/uL (4.30-6.10); WHITE BLOOD COUNT 9.5 10^3/uL (4.0-10.0)
[2018-04-30 06:00] LABS: CALCIUM LEVEL 9.2 MG/DL (8.8-10.2); CREATININE FOR GFR 6.58 MG/DL (0.70-1.30); GLOMERULAR FILTRATION RATE 9.2 (>49); MAGNESIUM LEVEL 2.5 MG/DL (1.8-2.4); PHOSPHORUS LEVEL 2.3 MG/DL (2.5-4.9); POTASSIUM SERUM 3.9 MEQ/L (3.5-5.1)
[2018-04-30] MEDS: SLF 3 ML SYR IV SCH ×3 (06:00→21:23)
[2018-04-30 06:17] LABS: LYMPHOCYTES 7 % (16-52); METAMYELOCYTES 2 % (0-0); MONOCYTES 11 % (0-8); NEUTROPHILS 79 % (35-75); NUCLEATED RED BLOOD CELL 1 % (0-0)
[2018-04-30 06:18] LABS: ANISOCYTOSIS 1+; PLATELET ESTIMATE NORMAL (NORMAL)
[2018-04-30] MEDS: HumaLOG INSULIN (NovoLOG) PER UNIT SC SCH ×4 (07:30→21:00)
[2018-04-30 07:43] LABS: C REACTIVE PROTEIN QUANTITATIV 23.1 MG/DL (0.00-0.30)
[2018-04-30 08:00] VITALS: BP 112/52
[2018-04-30] MEDS: ENTRESTO 24-26MG TABLET (SACUBITRIL/VALSARTAN) PO SCH ×2 (09:00→21:00)
[2018-04-30] MEDS: FOLIC ACID 1 MG TAB PO SCH (09:45)
[2018-04-30] MEDS: CALCITRIOL 0.25 MCG CAP (S0169) PO SCH (09:45)
[2018-04-30] MEDS: PANTOPRAZOLE 40MG TAB (PROTONIX) PO SCH ×2 (09:46→21:21)
[2018-04-30] MEDS: CYANOCOBALAMIN 500 MCG TAB PO SCH ×3 (09:46→21:22)
[2018-04-30] MEDS: ASPIRIN 81 MG ENTERIC TAB PO SCH (09:46)
[2018-04-30] MEDS: THIAMINE 100 MG TAB PO SCH (09:46)
[2018-04-30] MEDS: VITAMIN D 1,000 INTERNATIONAL UNITS TABLET PO SCH (09:46)
[2018-04-30] MEDS: CARVedilol 3.125 MG TAB PO SCH ×2 (09:47→21:00)
[2018-04-30] MEDS: SODIUM CHLORIDE NASAL 0.65% SPRAY BTL (OCEAN) SCH ×3 (09:47→21:23)
[2018-04-30] MEDS: OXYMETAZOLINE NASAL SPRAY (AFRIN) SCH ×2 (09:48→21:23)
[2018-04-30] MEDS: MIDODRINE 2.5 MG TAB PO SCH ×3 (09:52→16:50)
[2018-04-30] MEDS: ACETAMINOPHEN TAB 650MG DOSE (2X325MG) PO PRN ×2 (09:53→21:24)
[2018-04-30] MEDS: predniSONE 2.5 MG TAB PO SCH (09:53)
[2018-04-30] MEDS: valACYclovir HCL 500 MG TAB PO SCH (09:53)
--- NOTE | 2018-04-30 11:39 | IPNPDOC ---
Text Note Date of Service The patient was seen on 04/30/18. NOTE Subjective: Patient is a 62-year-old male with a PMHx of ESRD on HD (TTS), CAD s/p CABG / Stents (Hx of [place]), Systolic CHF, s/p PM, HTN, DLP, COPD, who presented to the ER with complaints of SOB. In the ER, patient was found to have fluid overload and was admitted to hospitalist service for further evaluation and treatment. Patient was seen and examined at the bedside. Patient notes that he feels better today. He still notes some pain with lateral denies any nausea or vomiting. Has been experiencing acid reflux. Denies any abdominal pain, constipation or diarrhea. Denies any chest pain, shortness of breath or palpitations. Objective: Vitals (See below) General: Lying in bed, no acute distress, comfortable, AAOx3 HEENT: NC, AT CVS: RRR, +S1S2 Chest: New HD catheter present Lungs: Fair air e mild distention without any tenderness Extremities: LE without any evidence of edema, - Calf tenderness Assessment and plan: s/p Confusion / Slow mentation - possibly 2/2 Uremia, possibly 2/2 infection, possibly 2/2 electrolyte abnormalities - Currently is oriented x 3 - Physical without any focal weakness - c/w HD as scheduled / abx as [id number] below s/p Fever - possibly HSV infection, less likely 2/2 Pneumonia / Pneumonitis (HCAP), less likely 2/2 line infection - Currently reports a mild cough / throat pain - Continues to experience low grade fever - CXR 04/26: Prominent markings in the lung bases may be early infiltrate. - Case discussed with Dr. Cruz (Vascular surgery); Line removed 04/26; New catheter placed on 04/28 - s/p Vancomycin and Zosyn (Day #4); s/p Ceftaroline (7 day course) - Dr. Ellison on consultation; appreciate their input Odynophagia / Dysphagia - possibly 2/2 HSV infection - Will discuss with Infectious disease / GI about possible EGD for visualization of ulcers - c/w Valacyclovir; s/p Fluconazole s/p Fluid overload - likely 2/2 acute decompensated systolic CHF / ESRD on HD (TTS) - No significant signs of fluid overload - BNP significantly elevated on admission - CXR 04/11: 1. Interstitial edema. 2. Cardiomegaly. - c/w HD; will have catheter replaced tomorrow - Nephrology (Dr. Alejo) on consultation; appreciate their input s/p Pancytopenia - possibly 2/2 viral illness [A]Normocytic anemia - likely 2/2 GI source possibly 2/2 epistaxis, possibly 2/2 ESRD - Patient is noted a history of hemorrhoidal bleeding / epistaxis - H&H has had slight drop since yesterday - Reticulocyte count suppressed / Occult blood positive - s/p 8 units PRBC - Give recent stent placement and advanced cardiac history (29 stent placements); c/w ASA / Plavix - Dr. Chow on consult; appreciate his input; patient will pursue evaluation via EGD / Colonoscopy at a later time given recent cardiac intervention [B] s/p Thrombocytopenia - Counts improved - Hepatitis profile and HIV negative - s/p 6 units of platelets [C] s/p Leukopenia - Hepatitis profile / HIV negative - Peripheral smear 04/15: Negative - s/p Neupogen x 4 - Consulted Dr. De La Vega (Hematology); appreciate their input Abdominal distension - suspected to be 2/2 Ascites - US abdomen 04/13: No evidence of fluid - c/w HD s/p Left jaw pain - CT maxillofacial 04/14: Minimal mucosal thickening is present in the ethmoid and maxillary sinuses - Will have outpatient f/u with dentist CAD s/p CABG / Stents (Hx of CT) - Patient has a history of 29 stent placements - Most recent stent was placed in February 09, 2018 - Outpatient cambering machine operator is Dr. Alvarado - c/w ASA and Plavix Arrhythmia s/p PM HTN - c/w Sacubitril / Valsartan, Carvedilol, - c/w Midodrine during HD sessions IDDM2 with Hypoglycemia - c/w Levemir and ISS DLP - c/w Pravastatin COPD - No evidence of exacerbation - c/w inhaled therapy as ordered Neuropathy - c/w Gabapentin Gout - c/w Febuxostat RLS - c/w Ropinirole RA - c/w Prednisone - Will hold Methotrexate Poor compliance - Daughter noted poor compliance with medications GERD - Will restart Protonix; Will DC Famotidine DVT prophylaxis - c/w SCDs Disposition: - c/w Physical therapy until cleared for DC home VS,Fishbone, I+O VS, Fishbone, I+O Laboratory Tests 04/30/18 05:00 Red Blood Count 3.39 L, Mean Corpuscular Volume 90.3, Mean Corpuscular Hemoglobin 28.3, Mean Corpuscular Hemoglobin Concent 31.4 L, Red Cell Distribution Width 17.4 H, Calcium Level 9.2 Vital Signs Date Time Temp Pulse Resp B/P (MAP) Pulse Ox O2 Delivery O2 Flow Rate FiO2 04/30/18 09:47 71 112/52 04/30/18 08:00 2.0 04/30/18 08:00 97.0 20 94 04/27/18 08:00 Room Air I&O- Last 24 Hours up to 6 AM 04/30/18 06:00 Intake Total 480 ml Output Total 2000 ml Balance -1520 ml MELISSA MCDANIEL MD Apr 30, 2018 11:39
[2018-04-30] MEDS ORDERED: HEPARIN 1,000 UNITS/ML 10ML VIAL (FOR RADIOLOGY& DIALYSIS ONLY) IV ONE (12:00)
[2018-04-30 16:00] VITALS: BP 111/55
[2018-04-30] MEDS: MAGIC MOUTHWASH SUSPENSION BTL SS PRN (17:05)
[2018-04-30 20:00] VITALS: BP 116/55
[2018-04-30] MEDS: PRAVASTATIN 20 MG TAB PO SCH (21:20)
[2018-04-30] MEDS: rOPINIRole 1MG TAB PO SCH (21:20)
[2018-04-30] MEDS: GABAPENTIN 100 MG CAP PO SCH (21:21)
[2018-04-30] MEDS: CLOPIDOGREL 75 MG TAB PO SCH (21:21)
[2018-04-30] MEDS: LEVEMIR (INSULIN DETEMIR) 1 UNITS/0.01ML SC SCH (21:22)
[2018-05-01] VITALS: BP 100/59
[2018-05-01 03:58] VITALS: BP 112/55
[2018-05-01 05:37] LABS: HEMATOCRIT 31.7 % (42.0-52.0); HEMOGLOBIN 10.1 g/dl (13.5-17.5); MEAN CORPUSCULAR HEMOGLOBIN 28.7 pg (27.0-33.0); MEAN CORPUSCULAR HGB CONC 31.9 g/dl (32.0-36.5); MEAN CORPUSCULAR VOLUME 90.1 fl (80.0-96.0); PLATELET COUNT, AUTOMATED 321 10^3/uL (150-450); RED BLOOD COUNT 3.52 10^6/uL (4.30-6.10); WHITE BLOOD COUNT 8.1 10^3/uL (4.0-10.0)
[2018-05-01 05:54] LABS: ATYPICAL LYMPH 1 % (0-5); BASOPHILS 2 % (0-4); LYMPHOCYTES 12 % (16-52); MONOCYTES 16 % (0-8); NEUTROPHILS 68 % (35-75); PLATELET ESTIMATE NORMAL (NORMAL)
[2018-05-01 05:55] LABS: C REACTIVE PROTEIN QUANTITATIV 15.2 MG/DL (0.00-0.30); CALCIUM LEVEL 9.1 MG/DL (8.8-10.2); CREATININE FOR GFR 4.92 MG/DL (0.70-1.30); GLOMERULAR FILTRATION RATE 12.9 (>49); MAGNESIUM LEVEL 2.2 MG/DL (1.8-2.4); PHOSPHORUS LEVEL 2.1 MG/DL (2.5-4.9); POTASSIUM SERUM 3.9 MEQ/L (3.5-5.1)
[2018-05-01 05:56] LABS: ANISOCYTOSIS 1+
[2018-05-01] MEDS: SLF 3 ML SYR IV SCH ×3 (06:00→23:57)
[2018-05-01] MEDS: HumaLOG INSULIN (NovoLOG) PER UNIT SC SCH ×4 (07:30→20:37)
[2018-05-01 08:00] VITALS: BP 99/57
[2018-05-01] MEDS: FOLIC ACID 1 MG TAB PO SCH (08:52)
[2018-05-01] MEDS: CALCITRIOL 0.25 MCG CAP (S0169) PO SCH (08:52)
[2018-05-01] MEDS: PANTOPRAZOLE 40MG TAB (PROTONIX) PO SCH ×2 (08:52→20:37)
[2018-05-01] MEDS: THIAMINE 100 MG TAB PO SCH (08:52)
[2018-05-01] MEDS: valACYclovir HCL 500 MG TAB PO SCH (08:53)
[2018-05-01] MEDS: predniSONE 2.5 MG TAB PO SCH (08:53)
[2018-05-01] MEDS: MIDODRINE 2.5 MG TAB PO SCH ×3 (08:53→16:57)
[2018-05-01] MEDS: CYANOCOBALAMIN 500 MCG TAB PO SCH ×3 (08:53→20:38)
[2018-05-01] MEDS: VITAMIN D 1,000 INTERNATIONAL UNITS TABLET PO SCH (08:53)
[2018-05-01] MEDS: SODIUM CHLORIDE NASAL 0.65% SPRAY BTL (OCEAN) SCH ×3 (08:54→20:46)
[2018-05-01] MEDS: ASPIRIN 81 MG ENTERIC TAB PO SCH (08:54)
[2018-05-01] MEDS: ACETAMINOPHEN TAB 650MG DOSE (2X325MG) PO PRN (08:54)
[2018-05-01] MEDS: ENTRESTO 24-26MG TABLET (SACUBITRIL/VALSARTAN) PO SCH ×2 (08:54→20:39)
[2018-05-01] MEDS: OXYMETAZOLINE NASAL SPRAY (AFRIN) SCH ×2 (08:54→20:47)
[2018-05-01] MEDS: CARVedilol 3.125 MG TAB PO SCH ×2 (08:54→20:44)
--- NOTE | 2018-05-01 10:45 | IPNPDOC ---
Text Note Date of Service The patient was seen on 05/01/18. NOTE Subjective: Patient is a 62-year-old male with a PMHx of ESRD on HD (TTS), CAD s/p CABG / Stents (Hx of [place]), Systolic CHF, s/p PM, HTN, DLP, COPD, who presented to the ER with complaints of SOB. In the ER, patient was found to have fluid overload and was admitted to hospitalist service for further evaluation and treatment. Patient was seen and examined at the bedside. Reports that he feels a little bit weak, but is improving. Reports feeling discomfort on his "rear end." Denies any chest pain, shortness of breath, palpitations. Denies nausea, vomiting, abdominal pain, constipation or diarrhea Objective: Vitals (See below) General: Lying in bed, no acute distress, comfortable, AAOx3 HEENT: NC, AT CVS: RRR, +S1S2 Chest: New HD catheter present Lungs: Fair air entry bilaterally. No evidence of wheezing, rhonchi, rales Abdomen: Soft, nondistended, without tenderness Extremities: LE do not reveal edema, - Calf tenderness Skin: No sacral decubitus ulcers noted Assessment and plan: s/p Confusion / Slow mentation - possibly 2/2 Uremia, possibly 2/2 infection, possibly 2/2 electrolyte abnormalities - Currently is oriented x 3 - Physical without any focal weakness - c/w HD as scheduled / abx as [id number] below s/p Fever - possibly HSV infection, less likely 2/2 Pneumonia / Pneumonitis (HCAP), less likely 2/2 line infection - Currently reports a mild cough / throat pain - Continues to experience low grade fever - CXR 04/26: Prominent markings in the lung bases may be early infiltrate. - Case discussed with Dr. Cruz (Vascular surgery); Line removed 04/26; New catheter placed on 04/28 - s/p Vancomycin and Zosyn (Day #4); s/p Ceftaroline (7 day course) - Dr. Ellison on consultation; appreciate their input Odynophagia / Dysphagia - possibly 2/2 HSV infection - Will discuss with Infectious disease / GI about possible EGD for visualization of ulcers - c/w Valacyclovir; s/p Fluconazole s/p Fluid overload - likely 2/2 acute decompensated systolic CHF / ESRD on HD (TTS) - No significant signs of fluid overload - BNP significantly elevated on admission - CXR 04/11: 1. Interstitial edema. 2. Cardiomegaly. - c/w HD; will have catheter replaced tomorrow - Nephrology (Dr. Alejo) on consultation; appreciate their input s/p Pancytopenia - possibly 2/2 viral illness [A]Normocytic anemia - likely 2/2 GI source possibly 2/2 epistaxis, possibly 2/2 ESRD - Patient is noted a history of hemorrhoidal bleeding / epistaxis - Reticulocyte count suppressed / Occult blood positive - s/p 8 units PRBC - Give recent stent placement and advanced cardiac history ([address] acements); c/w ASA / Plavix - Dr. Chow on consult; appreciate his input; patient will pursue evaluation via EGD / Colonoscopy at a later time given recent cardiac intervention [B] s/p Thrombocytopenia - Hepatitis profile and HIV negative - s/p 6 units of platelets [C] s/p Leukopenia - Hepatitis profile / HIV negative - Peripheral smear 04/15: Negative - s/p Neupogen x 4 - Consulted Dr. De La Vega (Hematology); appreciate their input Abdominal distension - suspected to be 2/2 Ascites - US abdomen 04/13: No evidence of fluid - c/w HD s/p Left jaw pain - CT maxillofacial 04/14: Minimal mucosal thickening is present in the ethmoid and maxillary sinuses - Will have outpatient f/u with dentist CAD s/p CABG / Stents (Hx of [place]) - Patient has a history of 29 stent placements - Most recent stent was placed in February 09, 2018 - Outpatient corrosion prevention metal sprayer is Dr. Alvarado - c/w ASA and Plavix Arrhythmia s/p PM HTN - c/w Sacubitril / Valsartan, Carvedilol, - c/w Midodrine during HD sessions IDDM2 with Hypoglycemia - c/w Levemir and ISS DLP - c/w Pravastatin COPD - No evidence of exacerbation - c/w inhaled therapy as ordered Neuropathy - c/w Gabapentin Gout - c/w Febuxostat RLS - c/w Ropinirole RA - c/w Prednisone - Will hold Methotrexate Poor compliance - Daughter noted poor compliance with medications GERD - c/w Protonix; s/p Famotidine DVT prophylaxis - c/w SCDs Disposition: - c/w Physical therapy until cleared for DC home VS,Fishbone, I+O VS, Fishbone, I+O Laboratory Tests 05/01/18 04:57 Red Blood Count 3.52 L, Mean Corpuscular Volume 90.1, Mean Corpuscular Hemoglobin 28.7, Mean Corpuscular Hemoglobin Concent 31.9 L, Red Cell Distribution Width 17.6 H, Calcium Level 9.1 Vital Signs Date Time Temp Pulse Resp B/P (MAP) Pulse Ox O2 Delivery O2 Flow Rate FiO2 05/01/18 08:54 83 99/57 05/01/18 08:00 97.2 20 94 04/30/18 08:00 2.0 04/27/18 08:00 Room Air I&O- Last 24 Hours up to 6 AM 05/01/18 05:59 Intake Total 480 ml Balance 480 ml MELISSA MCDANIEL MD May 01, 2018 10:45
[2018-05-01 11:24] VITALS: BP 95/63
[2018-05-01 15:29] VITALS: BP 109/58
[2018-05-01 20:00] VITALS: BP 111/55
[2018-05-01] MEDS: GABAPENTIN 100 MG CAP PO SCH (20:38)
[2018-05-01] MEDS: CLOPIDOGREL 75 MG TAB PO SCH (20:40)
[2018-05-01] MEDS: PRAVASTATIN 20 MG TAB PO SCH (20:40)
[2018-05-01] MEDS: rOPINIRole 1MG TAB PO SCH (20:41)
[2018-05-01] MEDS: LEVEMIR (INSULIN DETEMIR) 1 UNITS/0.01ML SC SCH (20:46)
[2018-05-01] MEDS: MAGIC MOUTHWASH SUSPENSION BTL SS PRN (20:46)
[2018-05-02 04:45] VITALS: BP 113/57
[2018-05-02] MEDS: SLF 3 ML SYR IV SCH ×3 (06:00→20:38)
[2018-05-02 06:08] LABS: HEMATOCRIT 29.6 % (42.0-52.0); HEMOGLOBIN 9.5 g/dl (13.5-17.5); MEAN CORPUSCULAR HEMOGLOBIN 29.1 pg (27.0-33.0); MEAN CORPUSCULAR HGB CONC 32.1 g/dl (32.0-36.5); MEAN CORPUSCULAR VOLUME 90.5 fl (80.0-96.0); PLATELET COUNT, AUTOMATED 343 10^3/uL (150-450); RED BLOOD COUNT 3.27 10^6/uL (4.30-6.10); WHITE BLOOD COUNT 7.8 10^3/uL (4.0-10.0)
[2018-05-02 06:34] LABS: LYMPHOCYTES 15 % (16-52); METAMYELOCYTES 2 % (0-0); MONOCYTES 16 % (0-8); MYELOCYTES 1 % (0-0); NEUTROPHILS 65 % (35-75)
[2018-05-02 06:35] LABS: ANISOCYTOSIS 1+; PLATELET CLUMPS SMALL AMT; PLATELET ESTIMATE NORMAL (NORMAL)
[2018-05-02 06:45] LABS: C REACTIVE PROTEIN QUANTITATIV 8.53 MG/DL (0.00-0.30); CALCIUM LEVEL 8.6 MG/DL (8.8-10.2); CREATININE FOR GFR 7.19 MG/DL (0.70-1.30); GLOMERULAR FILTRATION RATE 8.3 (>49); MAGNESIUM LEVEL 2.3 MG/DL (1.8-2.4); PHOSPHORUS LEVEL 2.4 MG/DL (2.5-4.9)
[2018-05-02 08:00] VITALS: BP 120/65
[2018-05-02] MEDS: HumaLOG INSULIN (NovoLOG) PER UNIT SC SCH ×4 (08:37→20:24)
[2018-05-02] MEDS: CALCITRIOL 0.25 MCG CAP (S0169) PO SCH (08:38)
[2018-05-02] MEDS: ASPIRIN 81 MG ENTERIC TAB PO SCH (08:38)
[2018-05-02] MEDS: THIAMINE 100 MG TAB PO SCH (08:38)
[2018-05-02] MEDS: valACYclovir HCL 500 MG TAB PO SCH (08:38)
[2018-05-02] MEDS: predniSONE 2.5 MG TAB PO SCH (08:39)
[2018-05-02] MEDS: CARVedilol 3.125 MG TAB PO SCH ×2 (08:39→20:32)
[2018-05-02] MEDS: FOLIC ACID 1 MG TAB PO SCH (08:39)
[2018-05-02] MEDS: MIDODRINE 2.5 MG TAB PO SCH ×3 (08:39→16:25)
[2018-05-02] MEDS: VITAMIN D 1,000 INTERNATIONAL UNITS TABLET PO SCH (08:39)
[2018-05-02] MEDS: PANTOPRAZOLE 40MG TAB (PROTONIX) PO SCH ×2 (08:40→20:33)
[2018-05-02] MEDS: ENTRESTO 24-26MG TABLET (SACUBITRIL/VALSARTAN) PO SCH ×2 (08:40→20:34)
[2018-05-02] MEDS: CYANOCOBALAMIN 500 MCG TAB PO SCH ×3 (08:40→20:33)
[2018-05-02] MEDS: SODIUM CHLORIDE NASAL 0.65% SPRAY BTL (OCEAN) SCH ×3 (08:41→20:36)
[2018-05-02] MEDS: OXYMETAZOLINE NASAL SPRAY (AFRIN) SCH ×2 (08:41→20:35)
--- NOTE | 2018-05-02 09:18 | IPNPDOC ---
Text Note Date of Service The patient was seen on 05/02/18. NOTE Patient is a 62-year-old male with a PMHx of ESRD on HD (TTS), CAD s/p CABG / Stents (Hx of [place]), Systolic CHF, s/p PM, HTN, DLP, COPD, who presented to the ER with complaints of SOB. In the ER, patient was found to have fluid overload and was admitted to hospitalist service for further evaluation and treatment. Patient was examined at bedside this AM. He reports that he is feeling great. He had no overnight activities. Denies chest pain, denies nausea, denied vomiting, Denies shortness of breath, or difficulty breathing. Objective: Vitals (See below) General: Alert and comfortable. No distress HEENT: supple, no JVD CVS: S1 and S2 present no murmurs Chest: Catheter present, no drainage Lungs: CTAB, no wheezing, or rhonchi Abdomen: Soft, non tender Extremities: no deformities, no edema, no cyanosis Assessment and plan: s/p Fever - possibly HSV infection, less likely 2/2 Pneumonia / Pneumonitis ( HCAP), less likely 2/2 line infection - Last fever was dated 04/29/18. He is currently afebrile - Line removed 04/26; New catheter placed on 04/28. No signs of drainage or infection around new line. He is occasional pain at line site - s/p Vancomycin and Zosyn (4 day course); s/p Ceftaroline (7 day course) - Dr. Ellison on consultation; appreciate their input Odynophagia / Dysphagia - possibly 2/2 HSV infection - c/w Valacyclovir; s/p Fluconazole - States pain is improving and he is able to swallow liquids s/p Fluid overload - likely 2/2 acute decompensated systolic CHF / ESRD on HD (TTS) - Currently euvolemic, no JVD noted - c/w HD on TTS with new catheter - Nephrology on consultation; appreciate their input s/p Confusion / Slow mentation - possibly 2/2 Uremia, possibly 2/2 infection, possibly 2/2 electrolyte abnormalities - Presently alert and orientated x3, no acute confusion - ct with HD as schedule - Has completed antibiotic therapy s/p Pancytopenia - likely 2/2 Parvovirus [A]Normocytic anemia - likely 2/2 GI source possibly 2/2 epistaxis, possibly 2/2 ESRD - Patient is noted a history of hemorrhoidal bleeding / epistaxis - Reticulocyte count suppressed / Occult blood positive - s/p 8 units PRBC - Give recent stent placement and advanced cardiac history (29 stent placements); c/w ASA / Plavix - Dr. Chow on consult; appreciate his input; patient will pursue evaluation via EGD / Colonoscopy at a later time given recent cardiac intervention - Current Hemiglobin is 9.5 with a Hct of 29.6 [B] s/p Thrombocytopenia - Hepatitis profile and HIV negative - s/p 6 units of platelets - Current platelet count is 343 [C] s/p Leukopenia - Hepatitis profile / HIV negative - Peripheral smear 04/15: Negative - s/p Neupogen x 4 - Consulted Dr. De La Vega (Hematology); appreciate their input Abdominal distension - suspected to be 2/2 Ascites - US abdomen 04/13: No evidence of fluid - ct HD s/p Left jaw pain - CT maxillofacial 04/14: Minimal mucosal thickening is present in the ethmoid and maxillary sinuses - Will have outpatient f/u with dentist CAD s/p CABG / Stents (Hx of [place]) - Patient has a history of 29 stent placements - Most recent stent was placed in February 09, 2018 - Outpatient truck engine technician is Dr. Alvarado - ct ASA and Plavix Arrhythmia s/p PM -Sinus on pvc monitor HTN - ct Sacubitril / Valsartan, Carvedilol, - ct Midodrine during HD sessions IDDM2 with Hypoglycemia - ct Levemir and ISS DLP - c/w Pravastatin COPD - No evidence of exacerbation - c/w inhaled therapy as ordered Neuropathy - c/w Gabapentin Gout - c/w Febuxostat RLS - c/w Ropinirole RA - c/w Prednisone - Will hold Methotrexate Poor compliance - Daughter noted poor compliance with medications GERD - c/w Protonix; s/p Famotidine DVT prophylaxis - c/w SCDs Disposition: - c/w Physical therapy until cleared for DC home VS,Fishbone, I+O VS, Fishbone, I+O Laboratory Tests 05/02/18 05:50 Red Blood Count 3.27 L, Mean Corpuscular Volume 90.5, Mean Corpuscular Hemoglobin 29.1, Mean Corpuscular Hemoglobin Concent 32.1, Red Cell Distribution Width 17.4 H, Calcium Level 8.6 L Vital Signs Date Time Temp Pulse Resp B/P (MAP) Pulse Ox O2 Delivery O2 Flow Rate FiO2 05/02/18 08:39 82 120/65 05/02/18 04:45 97.9 18 99 05/01/18 08:00 2.0 04/27/18 08:00 Room Air I&O- Last 24 Hours up to 6 AM 05/02/18 06:00 Intake Total 960 ml Output Total 500 ml Balance 460 ml GME ATTESTATION GME ATTESTATION My faculty preceptor for this patient encounter was physically present during the encounter and was fully available. All aspects of the patient interview, examination, medical decision making process, and medical care plan development were reviewed and approved by the faculty preceptor. The faculty preceptor is aware and concurs with the plan as stated in the body of this note and will attest to such by his/her cosignature. ATTENDING NOTE I have both independently examined this patient as well as reviewed the H&P. I have discussed in detail with the resident the findings and plan of treatment as documented in the residents note. I will continue to follow the patient and offer further guidance to the patients care as necessary during this hospital stay. MIK TSANG DO May 02, 2018 09:18 MELISSA MCDANIEL MD May 02, 2018 16:33
--- NOTE | 2018-05-02 13:24 | IPN ---
DATE: 04/30/2018 SUBJECTIVE: The patient was seen and examined at the bedside this afternoon during hemodialysis. The patient is tolerating the hemodialysis procedure well. His mental status is better today as compared with yesterday. OBJECTIVE: VITAL SIGNS: Temperature is 97 degrees Fahrenheit. Blood pressure 112/52, pulse is 71, respiratory rate of 20, saturating 94% on 2 liters. Intake and output: She got ultrafiltration done yesterday and 2 liters of fluid was removed. Weight on the bed scale is 68.5 kg. PHYSICAL EXAMINATION: GENERAL: The patient is awake, alert, and oriented times three. Lying in bed. Getting hemodialysis done. HEAD AND NECK: Extraocular muscles are intact. Pupils are equal, round and reactive to light. Mucous membranes are moist. Neck is supple. There is no jugular venous distention (JVD). CARDIOVASCULAR: S1, S2. Regular rate. No edema of the bilateral lower extremities. RESPIRATORY: Chest is clear to auscultation bilaterally. Bilateral equal air entry. No rales or rhonchi. ABDOMEN: Soft. Positive bowel sounds. No abdominal wall edema. MUSCULOSKELETAL: No clubbing or cyanosis. Pulses are 2+. CENTRAL NERVOUS SYSTEM ([facility]): No focal deficits. Power is 5/5 in bilateral upper extremities. LABORATORY REVIEW: CBC showed a WBC of 9.5, hemoglobin 9.6, platelets are 231. BMP: Sodium 137, potassium 3.9, chloride 102, bicarbonate 26, BUN 41, creatinine is 6.5. Calcium is 9.2. Phosphorous 2.3. Magnesium is 2.5. CURRENT INPATIENT MEDICATIONS: The patient's medications were all reviewed by me. He has been started on Valtrex 500 mg by mouth daily starting yesterday. No other change in the medications today as compared with yesterday. ASSESSMENT AND PLAN: 1. End stage renal disease. The patient got ultrafiltration done yesterday. He is being dialyzed according to his regular schedule today. I would try to remove more fluid, about 1 to 1.5 liters as tolerated by his blood pressure. 2. Chronic systolic congestive heart failure (CHF). The patient was admitted with decompensated heart failure. His volume status is significantly better with back to back ultrafiltration and hemodialysis. As mentioned above, more fluid will be removed during dialysis today. 3. Pancytopenia. 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 He is being seen by infectious disease. IV acyclovir has been stopped. He is currently on Valtrex 500 mg by mouth daily. His cell counts are improving. Hemoglobin is 9.6. He is on Aranesp 200 mcg IV with hemodialysis.
--- NOTE | 2018-05-02 14:56 | IPN ---
DATE: 05/01/2018 SUBJECTIVE: Patient was seen and examined at the bedside. He was actually sitting up in the sofa. He is more awake and alert today. He was dialyzed yesterday; 1 liter of fluid was removed. He denies any active complaints at this point. OBJECTIVE: VITAL SIGNS: Temperature is 98 degrees Fahrenheit, blood pressure 95/63, pulse is 92, respiratory rate of 20, saturating 97% on room air. INTAKE AND INPUT: Urine output is not recorded. Weight on the bed scale is 76.2 kg. PHYSICAL EXAMINATION: GENERAL: Patient is awake, alert, oriented times three, sitting up in the sofa, in no apparent distress. HEAD AND NECK EXAM: Extraocular muscles intact. Pupils equally round and reactive to light. Mucous membranes are moist. Neck is supple. There is no jugular venous distention (JVD). CARDIOVASCULAR: S1, S2. Regular rate. No edema of the bilateral lower extremities. RESPIRATORY: Chest is clear to auscultation bilaterally. Bilateral equal air entry. No rales or rhonchi. ABDOMEN: Soft. Obese. Positive bowel sounds. Nontender. No organomegaly. MUSCULOSKELETAL: No clubbing or cyanosis. Pulses are 2+. CENTRAL NERVOUS SYSTEM ([facility]): No focal deficits. Power is 5/5 in all extremities. LABORATORY REVIEW: CBC showed a WBC of 8.1, hemoglobin 10.1, platelets are 321. BMP showed sodium 138, potassium 3.9, chloride 102, bicarbonate 27, BUN 25, creatinine is 4.9, calcium 9.1, phosphorous is 2.1, magnesium is 2.2. CURRENT INPATIENT MEDICATIONS: Patient's medications were all reviewed by me. There is no change in the medications today as compared with yesterday. ASSESSMENT AND PLAN: 1. End-stage renal disease. Patient was dialyzed yesterday. Volume status is well optimized. Next hemodialysis session will be on Wednesday. 2. Chronic systolic congestive heart failure. Volume status is well compensated now, and it is being optimized with hemodialysis. 3. Anemia secondary to end-stage renal disease. Hemoglobin is optimal at this time. Continue current dose of Aranesp 200 mcg with hemodialysis. 4. Secondary hyperparathyroidism. Continue current dose of calcitriol 0.25 mcg daily. 5. Coronary artery disease. Continue current dose of aspirin and Plavix and statins. 6. Viral infection and pancytopenia. Patient is being seen by infectious disease. He is currently on Valtrex 500 mg daily.
[2018-05-02 16:00] VITALS: BP 110/56
[2018-05-02 20:00] VITALS: BP 92/55
[2018-05-02] MEDS: LEVEMIR (INSULIN DETEMIR) 1 UNITS/0.01ML SC SCH (20:30)
[2018-05-02] MEDS: PRAVASTATIN 20 MG TAB PO SCH (20:30)
[2018-05-02] MEDS: GABAPENTIN 100 MG CAP PO SCH (20:31)
[2018-05-02] MEDS: CLOPIDOGREL 75 MG TAB PO SCH (20:32)
[2018-05-02] MEDS: rOPINIRole 1MG TAB PO SCH (20:37)
[2018-05-03 04:00] VITALS: BP 103/65
[2018-05-03] MEDS: SLF 3 ML SYR IV SCH ×3 (04:45→20:52)
[2018-05-03 06:02] LABS: HEMOGLOBIN 9.3 g/dl (13.5-17.5); MEAN CORPUSCULAR HEMOGLOBIN 29.8 pg (27.0-33.0); MEAN CORPUSCULAR HGB CONC 32.1 g/dl (32.0-36.5); MEAN CORPUSCULAR VOLUME 92.9 fl (80.0-96.0); PLATELET COUNT, AUTOMATED 386 10^3/uL (150-450); RED BLOOD COUNT 3.12 10^6/uL (4.30-6.10); WHITE BLOOD COUNT 7.4 10^3/uL (4.0-10.0)
[2018-05-03 06:31] LABS: C REACTIVE PROTEIN QUANTITATIV 4.74 MG/DL (0.00-0.30); CALCIUM LEVEL 8.7 MG/DL (8.8-10.2); CREATININE FOR GFR 8.35 MG/DL (0.70-1.30); MAGNESIUM LEVEL 2.2 MG/DL (1.8-2.4); PHOSPHORUS LEVEL 3.4 MG/DL (2.5-4.9); POTASSIUM SERUM 4.1 MEQ/L (3.5-5.1)
[2018-05-03 06:39] LABS: ANISOCYTOSIS 1+; BASOPHILS 1 % (0-4); LYMPHOCYTES 14 % (16-52); METAMYELOCYTES 2 % (0-0); MONOCYTES 12 % (0-8); MYELOCYTES 1 % (0-0); NEUTROPHILS 70 % (35-75); PLATELET ESTIMATE NORMAL (NORMAL)
[2018-05-03] MEDS: HumaLOG INSULIN (NovoLOG) PER UNIT SC SCH ×4 (07:30→20:52)
[2018-05-03 08:00] VITALS: BP 114/67
[2018-05-03] MEDS: CALCITRIOL 0.25 MCG CAP (S0169) PO SCH (08:15)
[2018-05-03] MEDS: MIDODRINE 2.5 MG TAB PO SCH ×3 (08:15→17:13)
[2018-05-03] MEDS: VITAMIN D 1,000 INTERNATIONAL UNITS TABLET PO SCH (08:15)
[2018-05-03] MEDS: ENTRESTO 24-26MG TABLET (SACUBITRIL/VALSARTAN) PO SCH ×2 (08:15→20:49)
[2018-05-03] MEDS: ASPIRIN 81 MG ENTERIC TAB PO SCH (08:15)
[2018-05-03] MEDS: predniSONE 2.5 MG TAB PO SCH (08:16)
[2018-05-03] MEDS: THIAMINE 100 MG TAB PO SCH (08:16)
[2018-05-03] MEDS: valACYclovir HCL 500 MG TAB PO SCH (08:17)
[2018-05-03] MEDS: PANTOPRAZOLE 40MG TAB (PROTONIX) PO SCH ×2 (08:17→20:49)
[2018-05-03] MEDS: SODIUM CHLORIDE NASAL 0.65% SPRAY BTL (OCEAN) SCH ×3 (08:17→20:53)
[2018-05-03] MEDS: FOLIC ACID 1 MG TAB PO SCH (08:17)
[2018-05-03] MEDS: CYANOCOBALAMIN 500 MCG TAB PO SCH ×3 (08:17→20:49)
[2018-05-03] MEDS: OXYMETAZOLINE NASAL SPRAY (AFRIN) SCH ×2 (08:18→20:53)
--- NOTE | 2018-05-03 08:21 | IPN ---
DATE OF SERVICE: 05/02/2018 SUBJECTIVE: The patient was seen and examined at the bedside today morning. The patient is afebrile and hemodynamically stable. He denies any active complaints at this time apart from decreased vision in the right eye which is his baseline. OBJECTIVE: Vital Signs: Temperature 98 degrees Fahrenheit. Blood pressure 120/65. Pulse 82. Respiratory rate 18. Saturating 95% on room air. Intake and Output: Urine output recorded as 500 mL. Weight on the bed scale is 74.7 kg. PHYSICAL EXAMINATION: GENERAL: Patient is awake, alert, oriented times three, sitting up in the sofa, in no apparent distress. HEAD AND NECK EXAM: Decreased vision in the right eye. He cannot even do the finger counting. Mucous membranes are moist. Neck is supple. There is no jugular venous distention (JVD). He has a right internal jugular (IJ) tunneled hemodialysis catheter. CARDIOVASCULAR: S1, S2. Regular rate. No edema of the bilateral lower extremities. RESPIRATORY: Chest is clear to auscultation bilaterally. Bilateral equal air entry. No rales or rhonchi. ABDOMEN: Soft. Positive bowel sounds. Nontender. No organomegaly. MUSCULOSKELETAL: No clubbing or cyanosis. Pulses are 2+. CENTRAL NERVOUS SYSTEM ([employer]): No focal deficits. Power is 5/5 in all extremities. LABORATORY REVIEW: CBC showed a WBC of 6.7, hemoglobin 9.5, platelets are 343. BMP showed sodium 135, potassium 4, chloride 100, bicarbonate 27, BUN 40, creatinine is 7.1, calcium 8.6, phosphorous is 2.4, magnesium is 2.3. CURRENT INPATIENT MEDICATIONS: Patient's medications were all reviewed by me. There is no change in the medications today as compared with yesterday. ASSESSMENT AND PLAN: 1. End-stage renal disease. Patient was dialyzed over the weekend. His next hemodialysis will be on Wednesday, tomorrow morning. 2. Chronic systolic congestive heart failure. Volume status is very well optimized. I will continue to maintain current dry weight. 3. Anemia secondary to end-stage renal disease. Continue current dose of Aranesp. 4. Pancytopenia and viral infection. Continue current dose of Valtrex 500 mg daily. The rest of the management is as per infectious disease recommendations.
--- NOTE | 2018-05-03 08:45 | IPNPDOC ---
Text Note Date of Service The patient was seen on 05/03/18. NOTE Subjective: Patient is a 62-year-old male with a PMHx of ESRD on HD (TTS), CAD s/p CABG / Stents (Hx of SD), Systolic CHF, s/p PM, HTN, DLP, COPD, who presented to the ER with complaints of SOB. In the ER, patient was found to have fluid overload and was admitted to hospitalist service for further evaluation and treatment. Patient was examined at bedside. He was eating at the edge of the bed eating breakfast. He had no activity. He stated that his feeling great. He is scheduled for dialysis today.Denies chest pain, denies nausea, denied vomiting, Denies any recent illness. Denies shortness of breath, or difficulty breathing. He did admit to decreased visual acuity in his left eye, he states that everything is blurry, requiring him to focus to see. 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 Objective: Vitals (See below) General: Alert, comfortable, no acute distress, eating breakfast HEENT: supple, no JVD, no thyromegaly, left pupil, extraocular motion intact, round and reactive to light, CVS: S1 and S2 present in normal, no murmurs Chest: Catheter present, no drainage, no erythema Lungs: CTAB Abdomen: Soft, non tender, no organomegaly Extremities: no deformities, no edema, no cyanosis Neuro: No focal neurological deficits Assessment and plan: s/p Fever - possibly HSV infection, less likely 2/2 Pneumonia / Pneumonitis (HCAP), less likely 2/2 line infection - Last fever was dated 04/29/18. Patient continues to be afebrile - Line removed 04/26; New catheter placed on 04/28. No signs of drainage or infection around new line. - s/p Vancomycin and Zosyn (4 day course); s/p Ceftaroline (7 day course) - Dr. Ellison on consultation; appreciate their input Odynophagia / Dysphagia - possibly 2/2 HSV infection - c/w Valacyclovir; s/p Fluconazole - Continues to tolerate by mouth food. Blurry vision 2/2 to worsening visual acuity - Will follow up as out patient s/p Fluid overload - likely 2/2 acute decompensated systolic CHF / ESRD on HD (TTS) - Currently euvolemic, no JVD noted - c/w HD on TTS with new catheter - Nephrology on consultation for dialysis; appreciate their input s/p Confusion / Slow mentation - possibly 2/2 Uremia, possibly 2/2 infection, possibly 2/2 electrolyte abnormalities - No acute confusion, patient is back to baseline mentation. He appears pleasant and very happy - ct with HD as schedule - Has completed antibiotic therapy s/p Pancytopenia - likely 2/2 Parvovirus [A]Normocytic anemia - likely 2/2 GI source possibly 2/2 epistaxis, possibly 2/2 ESRD - Patient is noted a history of hemorrhoidal bleeding / epistaxis - Reticulocyte count suppressed / Occult blood positive - s/p 8 units PRBC - Give recent stent placement and advanced cardiac history (29 stent placements); c/w ASA / Plavix - Dr. Chow on consult; appreciate his input; patient will pursue evaluation via EGD / Colonoscopy at a later time given recent cardiac intervention - Current Hemiglobin is 9.3 and Hct 29.0 [B] s/p Thrombocytopenia - Hepatitis profile and HIV negative - s/p 6 units of platelets - Current platelet count is 386 [C] s/p Leukopenia - Hepatitis profile / HIV negative - Peripheral smear 04/15: Negative - s/p Neupogen x 4 - Consulted Dr. De La Vega (Hematology); appreciate their input Abdominal distension - suspected to be 2/2 Ascites - US abdomen 04/13: No evidence of fluid - ct HD - Resolved, no abdominal pain, no abdominal distention s/p Left jaw pain - CT maxillofacial 04/14: Minimal mucosal thickening is present in the ethmoid and maxillary sinuses - Will have outpatient f/u with dentist CAD s/p CABG / Stents (Hx of SD) - Patient has a history of 29 stent placements - Most recent stent was placed in February 09, 2018 - Outpatient court bailiff or sheriff is Dr. Alvarado - ct ASA and Plavix Arrhythmia s/p PM -Sinus on monitoring tech HTN - ct Sacubitril / Valsartan, Carvedilol, - ct Midodrine TID IDDM2 with Hypoglycemia - ct Levemir and ISS DLP - c/w Pravastatin COPD - No evidence of exacerbation - c/w inhaled therapy as ordered Neuropathy - c/w Gabapentin Gout - c/w Febuxostat RLS - c/w Ropinirole RA - c/w Prednisone - s/p Methotrexate Poor compliance - Daughter noted poor compliance with medications GERD - c/w Protonix; s/p Famotidine DVT prophylaxis - c/w SCDs Disposition: - c/w Physical therapy until cleared for DC home VS,Fishbone, I+O VS, Fishbone, I+O Laboratory Tests 05/03/18 05:42 Red Blood Count 3.12 L, Mean Corpuscular Volume 92.9, Mean Corpuscular Hemoglobin 29.8, Mean Corpuscular Hemoglobin Concent 32.1, Red Cell Distribution Width 18.1 H, Calcium Level 8.7 L Vital Signs Date Time Temp Pulse Resp B/P (MAP) Pulse Ox O2 Delivery O2 Flow Rate FiO2 05/03/18 04:00 97.5 86 20 103/65 (78) 100 05/01/18 08:00 2.0 04/27/18 08:00 Room Air I&O- Last 24 Hours up to 6 AM 05/03/18 06:00 Intake Total 750 ml Output Total 0 ml Balance 750 ml GME ATTESTATION GME ATTESTATION My faculty preceptor for this patient encounter was physically present during the encounter and was fully available. All aspects of the patient interview, examination, medical decision making process, and medical care plan development were reviewed and approved by the faculty preceptor. The faculty preceptor is a melgar and concurs with the plan as stated in the body of this note and will attest to such by his/her cosignature. ATTENDING NOTE I, Curry Archibald, have both independently examined this patient as well as reviewed the documentation. I have discussed in detail with the resident the findings and plan of treatment as documented in the residents documentation. I will continue to follow the patient and offer further guidance to the patients care as necessary during this hospital stay. MIK TSANG DO May 03, 2018 07:15 CURRY ARCHIBALD MD May 03, 2018 13:50
[2018-05-03] MEDS: CARVedilol 3.125 MG TAB PO SCH ×2 (09:00→20:49)
[2018-05-03] MEDS ORDERED: HEPARIN 1,000 UNITS/ML 10ML VIAL (FOR RADIOLOGY& DIALYSIS ONLY) XX ONE (10:45)
[2018-05-03] MEDS ORDERED: HEPARIN 1,000 UNITS/ML 10ML VIAL (FOR RADIOLOGY& DIALYSIS ONLY) IV ONE (10:45)
[2018-05-03 12:00] VITALS: BP 125/63
[2018-05-03 16:00] VITALS: BP 124/67
--- NOTE | 2018-05-03 17:02 | IPN ---
DATE: 05/03/2018 Solitario seems to be doing much better. He states his tongue pain has markedly improved. He is able to eat. He states his cough is persistent, mostly dry. Denies any nausea, vomiting or diarrhea. He has been ambulating, going around the nurses station without any problems. In general, he feels better. No new rashes. No fevers or chills. LABORATORY: White count 7.4, hemoglobin 9.3, hematocrit 29, platelets 386, 70% neutrophils, 14% lymphocytes, 12% monocytes. Sodium 139, potassium 4.1, chloride 105, bicarbonate 25, BUN 53, creatinine 8.3, glucose 164, calcium 8.7, CRP 4.7 down from 27.7. No new cultures were done since 04/28/2018. Clostridium difficile (C diff) was negative. PHYSICAL EXAMINATION: Oropharynx is clear with a very small ulcer on the lateral aspect of the tongue. No thrush. Temperature is 97.8, pulse 84, respirations 18, blood pressure 114/67, oxygen saturation (O2 sat) 97% on room air. Heart: Normal S1, S2 with a systolic ejection murmur 3/6 left upper sternal border. Lungs are clear. No wheezes, rales or rhonchi. Abdomen is soft, nontender. Extremities: No edema. Hemodialysis catheter right subclavian. No erythema. Previous hemodialysis catheter site healing well with scabs. IMPRESSION: Herpes simplex virus (HSV) infection, probably involving the oral mucosa with positive HSV PCR and blood. Patient on Valtrex, day #8 out of 10, tolerating oral Valtrex; the patient will continue for 10 days total. End-stage renal disease. On hemodialysis, doing well. Decompensated systolic congestive heart failure. Currently euvolemic. The patient had chest pain with exertion around nurses; the patient felt like pressure, resolved with rest. PLAN: Discontinue Valtrex in 48 hours. Infectious disease signing off.
[2018-05-03 20:00] VITALS: BP 128/64
[2018-05-03] MEDS: rOPINIRole 1MG TAB PO SCH (20:49)
[2018-05-03] MEDS: PRAVASTATIN 20 MG TAB PO SCH (20:49)
[2018-05-03] MEDS: CLOPIDOGREL 75 MG TAB PO SCH (20:50)
[2018-05-03] MEDS: GABAPENTIN 100 MG CAP PO SCH (20:50)
[2018-05-03] MEDS: LEVEMIR (INSULIN DETEMIR) 1 UNITS/0.01ML SC SCH (20:51)
[2018-05-04] MEDS: SLF 3 ML SYR IV SCH ×3 (05:25→21:08)
[2018-05-04 05:31] VITALS: BP 110/60
[2018-05-04 06:54] LABS: HEMATOCRIT 30.2 % (42.0-52.0); HEMOGLOBIN 9.5 g/dl (13.5-17.5); MEAN CORPUSCULAR HGB CONC 31.5 g/dl (32.0-36.5); MEAN CORPUSCULAR VOLUME 92.1 fl (80.0-96.0); PLATELET COUNT, AUTOMATED 419 10^3/uL (150-450); RED BLOOD COUNT 3.28 10^6/uL (4.30-6.10); WHITE BLOOD COUNT 7.1 10^3/uL (4.0-10.0)
[2018-05-04 07:11] LABS: C REACTIVE PROTEIN QUANTITATIV 2.87 MG/DL (0.00-0.30); CALCIUM LEVEL 8.7 MG/DL (8.8-10.2); CREATININE FOR GFR 5.57 MG/DL (0.70-1.30); GLOMERULAR FILTRATION RATE 11.2 (>49)
[2018-05-04 07:35] LABS: ATYPICAL LYMPH 2 % (0-5); BASOPHILS 2 % (0-4); LYMPHOCYTES 23 % (16-52); METAMYELOCYTES 1 % (0-0); MONOCYTES 9 % (0-8); MYELOCYTES 1 % (0-0); NEUTROPHILS 62 % (35-75)
[2018-05-04 07:36] LABS: ANISOCYTOSIS 1+; PLATELET ESTIMATE NORMAL (NORMAL)
--- NOTE | 2018-05-04 08:28 | IPN ---
DATE: 05/03/2018 SUBJECTIVE: The patient was seen and examined at the bedside this afternoon during hemodialysis. He is tolerating the hemodialysis procedure well. He denies any active complaints. OBJECTIVE: Vital Signs: Temperature 97.8 degrees Fahrenheit. Blood pressure 125/63. Pulse 81. Respiratory rate 18. Saturating 97% on room air. Intake and Output: Urine output is not recorded. Weight on the bed scale is 75.1 kg. PHYSICAL EXAMINATION: GENERAL: Patient is awake, alert, oriented times three, lying in bed and getting hemodialysis done. HEAD AND NECK EXAM: Extraocular muscles intact. He has right eye blindness. Mucous membranes are moist. Neck is supple. He has a right internal jugular (IJ) tunneled hemodialysis catheter. CARDIOVASCULAR: S1, S2. Regular rate. No edema of the bilateral lower extremities. RESPIRATORY: Chest is clear to auscultation bilaterally. Bilateral equal air entry. No rales or rhonchi. ABDOMEN: Soft. Positive bowel sounds. Nontender. No organomegaly. MUSCULOSKELETAL: No clubbing or cyanosis. Pulses are 2+. CENTRAL NERVOUS SYSTEM (CHLORINATOR): No focal deficits. Power is 5/5 in all extremities. Right eye blindness, as mentioned above. LABORATORY REVIEW: CBC showed a WBC of 7.4, hemoglobin 9.3, platelets are 386. BMP showed sodium 139, potassium 4.1, chloride 105, bicarbonate 25, BUN 53, creatinine is 8.3, calcium 8.7, phosphorous is 3.4, magnesium is 2.2. CURRENT INPATIENT MEDICATIONS: Patient's medications were all reviewed by me. There is no significant change in the medications today as compared with yesterday. ASSESSMENT AND PLAN: 1. End-stage renal disease. Patient is being dialyzed today according to the regular schedule. 2 liters of fluid will be removed as tolerated by his blood pressure. 2. Chronic systolic congestive heart failure. Volume status is very well optimized. Continue to maintain current dry weight. 3. Anemia in end-stage renal disease. Hemoglobin is 9.5, which is slightly suboptimal. Continue current dose of Aranesp 200 mcg IV with hemodialysis. 4. Pancytopenia and viral infection. Continue current dose of Valtrex. Pancytopenia is improving.
[2018-05-04] MEDS: CYANOCOBALAMIN 500 MCG TAB PO SCH ×3 (09:07→21:06)
[2018-05-04] MEDS: PANTOPRAZOLE 40MG TAB (PROTONIX) PO SCH ×2 (09:07→21:06)
[2018-05-04] MEDS: ASPIRIN 81 MG ENTERIC TAB PO SCH (09:07)
[2018-05-04] MEDS: FOLIC ACID 1 MG TAB PO SCH (09:07)
[2018-05-04] MEDS: predniSONE 2.5 MG TAB PO SCH (09:07)
[2018-05-04] MEDS: HumaLOG INSULIN (NovoLOG) PER UNIT SC SCH ×4 (09:07→21:00)
[2018-05-04] MEDS: valACYclovir HCL 500 MG TAB PO SCH (09:07)
[2018-05-04] MEDS: CALCITRIOL 0.25 MCG CAP (S0169) PO SCH (09:08)
[2018-05-04] MEDS: MIDODRINE 2.5 MG TAB PO SCH ×3 (09:08→17:24)
[2018-05-04] MEDS: VITAMIN D 1,000 INTERNATIONAL UNITS TABLET PO SCH (09:08)
[2018-05-04] MEDS: CARVedilol 3.125 MG TAB PO SCH ×2 (09:13→21:07)
[2018-05-04] MEDS: THIAMINE 100 MG TAB PO SCH (09:15)
[2018-05-04] MEDS: ENTRESTO 24-26MG TABLET (SACUBITRIL/VALSARTAN) PO SCH ×2 (09:15→21:00)
[2018-05-04] MEDS: SODIUM CHLORIDE NASAL 0.65% SPRAY BTL (OCEAN) SCH ×3 (12:06→21:00)
[2018-05-04 14:00] VITALS: BP 119/62
--- NOTE | 2018-05-04 14:10 | IPNPDOC ---
Text Note Date of Service The patient was seen on 05/04/18. NOTE Subjective: Patient is a 62-year-old male with a PMHx of ESRD on HD (TTS), CAD s/p CABG / Stents (Hx of [place]), Systolic CHF, s/p PM, HTN, DLP, COPD, who presented to the ER with complaints of SOB. In the ER, patient was found to have fluid overload and was admitted to hospitalist service for further evaluation and treatment. Patient was seen and examined at the bedside. , Currently patient has noted some oozing around his permacath site. He denies any chest pain, shortness of breath or palpitations. Denies nausea, vomiting, abdominal pain, constipation or diarrhea. He has been working with physical therapy has not yet cleared Objective: Vitals (See below) General: Lying in bed, no acute distress, comfortable, AAOx3 HEENT: NC, AT CVS: RRR, +S1S2 Chest: HD catheter present; mild blood oozing is noted around site Lungs: Air entry is fair bilaterally without evidence of rhonchi, rales or wheezing Abdomen: Soft, ND, no evidence of tenderness Extremities: LE without edema, - Calf tenderness Skin: No sacral decubitus ulcers noted Assessment and plan: s/p Confusion / Slow mentation - possibly 2/2 Uremia, possibly 2/2 infection, possibly 2/2 electrolyte abnormalities - Currently is oriented x 3 - Physical without any focal weakness s/p Fever - possibly HSV infection, less likely 2/2 Pneumonia / Pneumonitis (HCAP), less likely 2/2 line infection - Currently reports a mild cough / throat pain - Continues to experience low grade fever - CXR 04/26: Prominent markings in the lung bases may be early infiltrate. - Case discussed with Dr. Cruz (Vascular surgery); Line removed 04/26; New catheter placed on 04/28 - s/p antibiotic therapy - Dr. 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 Interstitial edema. 2. Cardiomegaly. - c/w HD - Catheter site has evidence of blood oozing; Discussed with Dr. Cruz who will evaluate for potential additional sutures - Nephrology (Dr. Alejo) on consultation; appreciate their input s/p Pancytopenia - possibly 2/2 viral illness [A]Normocytic anemia - likely 2/2 GI source possibly 2/2 epistaxis, possibly 2/2 ESRD - Patient is noted a history of hemorrhoidal bleeding / epistaxis - Reticulocyte count suppressed / Occult blood positive - s/p 8 units PRBC - Give recent stent placement and advanced cardiac history (29 stent placements); c/w ASA / Plavix - Dr. Chow on consult; appreciate his input; patient will pursue evaluation via EGD / Colonoscopy at a later time given recent cardiac intervention [B] s/p Thrombocytopenia - Hepatitis profile and HIV negative - s/p 6 units of platelets [C] s/p Leukopenia - Hepatitis profile / HIV negative - Peripheral smear 04/15: Negative - s/p Neupogen x 4 - Consulted Dr. De La Vega (Hematology); appreciate their input Abdominal distension - suspected to be 2/2 Ascites - US abdomen 04/13: No evidence of fluid - c/w HD s/p Left jaw pain - CT maxillofacial 04/14: Minimal mucosal thickening is present in the ethmoid and maxillary sinuses - Will have outpatient f/u with dentist CAD s/p CABG / Stents (Hx of [place]) - Patient has a history of 29 stent placements - Most recent stent was placed in February 09, 2018 - Outpatient office manager executive assistant is Dr. Alvarado - c/w ASA and Plavix Arrhythmia s/p PM HTN - c/w Sacubitril / Valsartan, Carvedilol, - c/w Midodrine IDDM2 with Hypoglycemia - c/w Levemir and ISS DLP - c/w Pravastatin COPD - No evidence of exacerbation - c/w inhaled therapy as ordered Neuropathy - c/w Gabapentin Gout - c/w Febuxostat RLS - c/w Ropinirole RA - c/w Prednisone - s/p Methotrexate Poor compliance - Daughter noted poor compliance with medications GERD - c/w Protonix; s/p Famotidine DVT prophylaxis - c/w SCDs Disposition: - Awaiting clearance from physical therapy for discharge home with services VSNatalia, I+O VSNatalia, I+O Laboratory Tests 05/04/18 06:38 Red Blood Count 3.28 L, Mean Corpuscular Volume 92.1, Mean Corpuscular Hemoglobin 29.0, Mean Corpuscular Hemoglobin Concent 31.5 L, Red Cell Distribution Width 18.6 H, Calcium Level 8.7 L Vital Signs Date Time Temp Pulse Resp B/P (MAP) Pulse Ox O2 Delivery O2 Flow Rate FiO2 05/04/18 09:13 80 104/64 05/04/18 05:31 96.9 18 95 05/01/18 08:00 2.0 I&O- Last 24 Hours up to 6 AM 05/04/18 06:00 Intake Total 990 ml Output Total 2000 ml Balance -1010 ml MELISSA MCDANIEL MD May 04, 2018 14:10
[2018-05-04 20:00] VITALS: BP 110/58
[2018-05-04] MEDS: LEVEMIR (INSULIN DETEMIR) 1 UNITS/0.01ML SC SCH (21:05)
[2018-05-04] MEDS: rOPINIRole 1MG TAB PO SCH (21:05)
[2018-05-04] MEDS: GABAPENTIN 100 MG CAP PO SCH (21:06)
[2018-05-04] MEDS: CLOPIDOGREL 75 MG TAB PO SCH (21:06)
[2018-05-04] MEDS: PRAVASTATIN 20 MG TAB PO SCH (21:06)
[2018-05-05] MEDS: ACETAMINOPHEN TAB 650MG DOSE (2X325MG) PO PRN ×2 (01:55→21:00)
[2018-05-05 04:00] VITALS: BP 111/57
[2018-05-05] MEDS: SLF 3 ML SYR IV SCH ×3 (05:56→20:59)
[2018-05-05 06:46] LABS: HEMATOCRIT 32.7 % (42.0-52.0); HEMOGLOBIN 9.9 g/dl (13.5-17.5); MEAN CORPUSCULAR HEMOGLOBIN 28.9 pg (27.0-33.0); MEAN CORPUSCULAR HGB CONC 30.3 g/dl (32.0-36.5); MEAN CORPUSCULAR VOLUME 95.6 fl (80.0-96.0); PLATELET COUNT, AUTOMATED 421 10^3/uL (150-450); RED BLOOD COUNT 3.42 10^6/uL (4.30-6.10); WHITE BLOOD COUNT 6.6 10^3/uL (4.0-10.0)
[2018-05-05 07:08] LABS: ATYPICAL LYMPH 2 % (0-5); C REACTIVE PROTEIN QUANTITATIV 2.16 MG/DL (0.00-0.30); CALCIUM LEVEL 8.9 MG/DL (8.8-10.2); CREATININE FOR GFR 6.6 MG/DL (0.70-1.30); GLOMERULAR FILTRATION RATE 9.2 (>49); LYMPHOCYTES 17 % (16-52); MAGNESIUM LEVEL 1.8 MG/DL (1.8-2.4); METAMYELOCYTES 2 % (0-0); MONOCYTES 15 % (0-8); MYELOCYTES 3 % (0-0); NEUTROPHILS 60 % (35-75); PLATELET ESTIMATE INCREASED (NORMAL)
[2018-05-05 07:11] LABS: ANISOCYTOSIS 2+
[2018-05-05] MEDS: predniSONE 2.5 MG TAB PO SCH (07:41)
[2018-05-05] MEDS: MIDODRINE 2.5 MG TAB PO SCH ×3 (07:41→17:46)
[2018-05-05] MEDS: FOLIC ACID 1 MG TAB PO SCH (07:41)
[2018-05-05] MEDS: CALCITRIOL 0.25 MCG CAP (S0169) PO SCH (07:41)
[2018-05-05] MEDS: VITAMIN D 1,000 INTERNATIONAL UNITS TABLET PO SCH (07:42)
[2018-05-05] MEDS: THIAMINE 100 MG TAB PO SCH (07:42)
[2018-05-05] MEDS: CYANOCOBALAMIN 500 MCG TAB PO SCH ×3 (07:42→20:58)
[2018-05-05] MEDS: ASPIRIN 81 MG ENTERIC TAB PO SCH (07:42)
[2018-05-05] MEDS: valACYclovir HCL 500 MG TAB PO SCH (07:42)
[2018-05-05] MEDS: PANTOPRAZOLE 40MG TAB (PROTONIX) PO SCH ×2 (07:42→20:58)
[2018-05-05] MEDS: ENTRESTO 24-26MG TABLET (SACUBITRIL/VALSARTAN) PO SCH ×2 (07:45→20:58)
[2018-05-05] MEDS: CARVedilol 3.125 MG TAB PO SCH ×2 (07:45→20:59)
[2018-05-05] MEDS: SODIUM CHLORIDE NASAL 0.65% SPRAY BTL (OCEAN) SCH ×3 (07:46→20:59)
[2018-05-05] MEDS: HumaLOG INSULIN (NovoLOG) PER UNIT SC SCH ×4 (07:46→20:57)
--- NOTE | 2018-05-05 08:25 | IPN ---
DATE OF SERVICE: 05/04/2018 SUBJECTIVE: Patient was seen and examined at the bedside. He denies any active complaint. He was dialyzed yesterday. 2 liter of fluid was removed. He reports bleeding from the dialysis access site. OBJECTIVE: Vital signs: Temperature is 96.9 degrees Fahrenheit, blood pressure 110/60, pulse is 85, respiratory rate of 18, saturating 95% on room air. Intake and output: Urine output recorded as 950 mL so far today since overnight. Ultrafiltration with hemodialysis was 2 liter. Weight on the bed scale is 73.6 kg. PHYSICAL EXAMINATION: General: Patient is awake, alert, oriented times three, sitting up in bed, no apparent distress. Head and neck exam: Extraocular muscles intact. Pupils equally round and reactive to light. Mucous membranes are moist. Neck is supple. He has a right IJ tunneled hemodialysis catheter. Cardiovascular: S1, S2. Regular rate. No edema of the bilateral lower extremity. Respiratory: Chest is clear to auscultation bilaterally. Bilateral equal air entry. No rales or rhonchi. Abdomen is soft, positive bowel sounds. Nontender. No organomegaly. Musculoskeletal: No clubbing or cyanosis. Pulses are 2+. Central nervous system: No focal neurological deficit. Right eye is blind. LAB REVIEW: CBC showed WBC 7.1, hemoglobin 9.5, platelets of 419. BMP showed sodium 141, potassium 4, chloride 105, bicarbonate 28, BUN 28, creatinine is 5.5, calcium 8.7, magnesium is 2. CURRENT INPATIENT MEDICATIONS: Patient's medications were all reviewed by me. There is no change in the medications today as compared with yesterday. ASSESSMENT AND PLAN: 1. 1. End-stage renal disease on hemodialysis. Patient was dialyzed yesterday. 2 liter of fluid was removed. Volume status is optimized. 2. Chronic systolic congestive heart failure. Patient has been extensively dialyzed and ultrafiltered during this hospitalization. His weight today is around 73.6 kg. I will set his dry weight to this weight when patient is discharged from the hospital. 3. Anemia in end-stage renal disease. Hemoglobin is 9.5, which is slightly suboptimal. Continue current dose of Aranesp 200 mcg IV with hemodialysis. Continue folic acid. 4. Bleeding from the catheter site. Patient is on aspirin and Plavix. Patient will get a dressing change done by dialysis nurse today.
[2018-05-05] MEDS ORDERED: HEPARIN 1,000 UNITS/ML 10ML VIAL (FOR RADIOLOGY& DIALYSIS ONLY) IV ONE (10:30)
[2018-05-05] MEDS ORDERED: HEPARIN 1,000 UNITS/ML 10ML VIAL (FOR RADIOLOGY& DIALYSIS ONLY) XX ONE (10:30)
[2018-05-05 20:00] VITALS: BP 108/58
--- NOTE | 2018-05-05 20:40 | IPN ---
DATE: 05/05/2018 SUBJECTIVE: Patient was seen and examined at the bedside today morning. Patient is afebrile and hemodynamically stable. He denies any active complaints. Today is patient's regular day of dialysis. OBJECTIVE: VITAL SIGNS: Temperature is 97.5 degrees Fahrenheit. Blood pressure is 111/57, pulse is 73, respiratory rate of 20, saturating 97% on room air. Intake and output: Urine output recorded yesterday is 950 mL. Weight on the bed scale is 71.3 kg. PHYSICAL EXAMINATION: GENERAL: The patient is awake, alert and oriented times three. Sitting up in the bed. No apparent distress. HEAD/NECK: Right eye blindness. Pupils are equally round and reactive to light. Mucous membranes are moist. Neck is supple. He has a right IJ tunnel hemodialysis catheter. CARDIOVASCULAR: S1, S2, regular rate. No murmur, rub or gallop. No edema of the bilateral lower extremities. RESPIRATORY: Chest is clear to auscultation bilaterally. Bilateral equal air entry. No rales or rhonchi. ABDOMEN: Soft. Positive bowel sounds. Nontender. No organomegaly. MUSCULOSKELETAL: No clubbing or cyanosis. Pulses are 2+. CENTRAL NERVOUS SYSTEM: No focal deficit, but some decreased vision right eye. LABORATORY REVIEW: CBC showed a WBC 6.6, hemoglobin 9.9, platelets are 421. BMP showed sodium 140, potassium is 4, chloride 105, bicarbonate 28. BUN 38, creatinine is 6.6. CURRENT INPATIENT MEDICATIONS: The patient's medications were all reviewed by me. No change in the medications today as compared with yesterday. ASSESSMENT AND PLAN: 1. End-stage renal disease with hemodialysis. Today is patient's regular day of dialysis. I will try to remove at least 2 liters of fluid as tolerated by his blood pressure. 2. Chronic systolic congestive heart failure. Volume status is very well optimized at this point. Continue fluid removal 2 to 2.5 kg with each hemodialysis. 3. Anemia and end-stage renal disease. Hemoglobin is 9.9 which is improving. Continue current dose of Aranesp with hemodialysis.
[2018-05-05] MEDS: LEVEMIR (INSULIN DETEMIR) 1 UNITS/0.01ML SC SCH (20:57)
[2018-05-05] MEDS: rOPINIRole 1MG TAB PO SCH (20:58)
[2018-05-05] MEDS: GABAPENTIN 100 MG CAP PO SCH (20:58)
[2018-05-05] MEDS: CLOPIDOGREL 75 MG TAB PO SCH (20:58)
[2018-05-05] MEDS: PRAVASTATIN 20 MG TAB PO SCH (20:58)
[2018-05-06 05:00] VITALS: BP 112/58
[2018-05-06] MEDS: SLF 3 ML SYR IV SCH ×2 (06:00→14:07)
[2018-05-06 08:00] VITALS: BP 126/67
[2018-05-06] MEDS: HumaLOG INSULIN (NovoLOG) PER UNIT SC SCH ×3 (08:42→17:31)
[2018-05-06] MEDS: THIAMINE 100 MG TAB PO SCH (08:42)
[2018-05-06] MEDS: MIDODRINE 2.5 MG TAB PO SCH ×3 (08:42→17:29)
[2018-05-06] MEDS: FOLIC ACID 1 MG TAB PO SCH (08:42)
[2018-05-06 08:43] VITALS: BP 126/67
[2018-05-06] MEDS: predniSONE 2.5 MG TAB PO SCH (08:43)
[2018-05-06] MEDS: SODIUM CHLORIDE NASAL 0.65% SPRAY BTL (OCEAN) SCH ×2 (08:43→17:29)
[2018-05-06] MEDS: PANTOPRAZOLE 40MG TAB (PROTONIX) PO SCH (08:43)
[2018-05-06] MEDS: CYANOCOBALAMIN 500 MCG TAB PO SCH ×2 (08:43→17:29)
[2018-05-06] MEDS: ENTRESTO 24-26MG TABLET (SACUBITRIL/VALSARTAN) PO SCH (08:43)
[2018-05-06] MEDS: CARVedilol 3.125 MG TAB PO SCH (08:43)
[2018-05-06] MEDS: CALCITRIOL 0.25 MCG CAP (S0169) PO SCH (08:43)
[2018-05-06] MEDS: VITAMIN D 1,000 INTERNATIONAL UNITS TABLET PO SCH (08:43)
[2018-05-06] MEDS: ASPIRIN 81 MG ENTERIC TAB PO SCH (08:43)
[2018-05-06 14:00] VITALS: BP 112/59
--- NOTE | 2018-05-06 15:19 | DS.PDOC ---
Discharge Summary General Date of Admission 05/21/18 Date of Discharge 05/06/18 Discharge Summary ADMITTING DIAGNOSES: 1. [pancytopenia]. DISCHARGE DIAGNOSES: 1. [Pancytopenia) ]. COMPLICATIONS/CHIEF COMPLAINT: Pancytopenia. 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 HOSPITAL COURSE: 1. End-stage renal disease on hemodialysis in the setting of systolic congestive heart failure s/p HD as tolerated, some days BP was too low to tolerate HD. 2. Tunnel tract infection of right IJ Perm-A-Cath. 3. Pancytopenia. White count is 1.6, hemoglobin 7.5 and platelets 19. He is s/p bone marrow biopsy and 2 units of packed red blood cells with dialysis. He continues on aspirin and Plavix due to recent coronary stent. He continues on Aranesp for dialysis and Venofer. 4. Systolic congestive heart failure, acute on chronic. Mildly hypovolemic on exam. HD as tolerated (some days his bp was too low for HD), Continue Midodrine. 5. Coronary artery disease, severe and complicates his care. History of 29 stent, most recent stent was in January. Continue the low dose aspirin and plavix and statin. DISCHARGE MEDICATIONS: Please see below. ALLERGIES: Please see below. LABORATORY DATA: Please see below. IMAGING: TECHNIQUE: XR of the chest, 1 view. COMPARISON: CR PORTABLE CHEST X-RAY 04/19/2018 6:34 PM FINDINGS: Tubes, catheters and devices: There is a bilead pacemaker in place.. Large right-sided central line. Lungs: Streaky appearance of the lung bases could be early infiltrate. Pleural space: There is no evidence of pneumothorax. Heart/Mediastinum: There is cardiomegaly Vasculature: There is prominence of the vascular markings accentuated by a shallow depth inspiration. Bones/joints: Sternal wires are present. IMPRESSION: Prominent markings in the lung bases may be early infiltrate. CT abdomen and pelvis without IV or oral contrast: History: Shortness of breath. Comparison study January 11, 2015. Findings: The liver and the spleen are homogeneous in texture normal in size. Gallbladder is surgically absent. No adrenal lesion is seen. There is vascular calcification. No hydronephrosis or renal mass lesion is observed. There is a small cyst along the medial edge of the pancreas measuring 1.4 cm in greatest diameter. This appears to be unchanged from the comparison study. No pancreatic mass lesion is observed. Small and large bowel loops are normal in the abdomen and pelvis. Pararenal and perirenal fat compartments are hypertrophied bilaterally but this is unchanged. There is left colonic diverticulosis. A left hip prosthesis is noted in place and the patient is status post multilevel lumbar spine fusion. Impression: Status post cholecystectomy. No acute intra-abdominal abnormality. Left colonic diverticulosis. Normal appendix CT CHEST WITHOUT CONTRAST: HISTORY: Shortness of breath. Comparison is made with chest x-ray from April 19 2018. FINDINGS: There is no evidence of pleural effusion or pericardial effusion. Four-chamber cardiomegaly is observed. A pacemaker in the right heart. Extensive vascular calcification. Prior sternotomy is noted. A right IJ central venous catheter is seen with its tip in the SVC. Interstitial markings are increased in the anterior portions of the upper lobes bilaterally and to a lesser extent in the right middle lobe and lingula. There is a little fissural thickening in the major fissure. The interstitial markings are bilateral and symmetric and may reflect interstitial edema. No other significant pulmonary opacity. No evidence of adenopathy or mass lesion. IMPRESSION: Increased interstitial markings in the upper lobes bilaterally anteriorly and symmetrically. To some degree, there is involvement in the right middle lobe and lingula as well. Most likely interstitial edema. .] ACTIVITY: [As tolerated]. DIET: [renal diet] DISCHARGE CONDITION: [Stable]. TIME SPENT ON DISCHARGE: Greater than [45] minutes. Discharge Medications Scheduled (Katya Wilde) 300 Unit/Ml Inj, 70 UNIT SC QHS, (Reported) (Folic Acid) 800 Mcg Cap, 2,400 MCG PO DAILY, (Reported) Aspirin (Aspirin 81) 81 Mg Tab, 81 MG PO DAILY, (Reported) Calcitriol (Calcitriol) 0.25 Mcg Cap, 0.25 MCG PO DAILY, (Reported) Carvedilol (Carvedilol) 3.125 Mg Tab, 3.125 MG PO BID, (Reported) Cholecalciferol (Vitamin D3) 1,000 Unit Tab, 2,000 UNIT PO DAILY, (Reported) Clopidogrel Bisulfate (Clopidogrel) 75 Mg Tab, 75 MG PO QHS, (Reported) Cyanocobalamin (Vitamin B12) 500 Mcg Tab, 500 MCG PO TID, (Reported) Febuxostat (Uloric) 80 Mg Tab, 80 MG PO QHS, (Reported) Filgrastim (Neupogen) 480 Mcg/0.8 Ml Soln, 480 MCG SC DAILY 480MCG Gabapentin (Gabapentin) 100 Mg Cap, 100 MG PO QHS, (Reported) Insulin Human Regular (Humulin R) 1 Units/0.01 Ml Soln, 0 SC ACHS, (Reported) PER SLIDING SCALE Melatonin (Melatonin) 5 Mg Tab, 5 MG PO QHS, (Reported) Midodrine HCl (Midodrine HCl) 5 Mg Tab, 5 MG PO 3XW, (Reported) MON,WED,FRI Pantoprazole Sodium (Pantoprazole Sodium) 40 Mg Tab, 40 MG PO BID, (Reported) Pravastatin Sodium (Pravastatin Sodium) 80 Mg Tab, 80 MG PO QHS, (Reported) Prednisone (Prednisone) 2.5 Mg Tab, 2.5 MG PO DAILY, (Reported) Ropinirole Hydrochloride (Ropinirole HCl) 1 Mg Tab, 1 MG PO QHS, (Reported) Sacubitril/Valsartan (Entresto 24-26 mg) 1 Tab Tab, 1 TAB PO BID, (Reported) Thiamine HCl (B-1) 250 Mg Tab, 250 MG PO DAILY, (Reported) Scheduled PRN Acetaminophen (Acetaminophen) 500 Mg Tab, 1,000 MG PO BID PRN for PAIN, (Reported) Bisacodyl (Dulcolax) 5 Mg Tab, 5 MG PO DAILY PRN for CONSTIPATION, (Reported) Docusate Sodium (Colace) 100 Mg Cap, 100 MG PO BID PRN for CONSTIPATION, (Reported) Linaclotide Base (Linzess) 290 Mcg Cap, 290 MCG PO DAILY PRN for CONSTIPATION, (Reported) Nitroglycerin (Nitrostat) 0.4 Mg Subl, 0.4 MG SL NITRO PRN for CHEST PAIN, (Reported) Ondansetron HCl (Zofran) 4 Mg Tab, 4 MG PO Q8H PRN for NAUSEA, (Reported) Polyethylene Glycol (Miralax) 1 Pow Pow, 17 GM PO DAILY PRN for CONSTIPATION, (Reported) Senna (Senna-Lax) 8.6 Mg Tab, 1 TAB PO BID PRN for CONSTIPATION, (Reported) Simethicone (Simethicone) 80 Mg Chew, 80 MG PO Q6H PRN for GAS PAIN, (Reported) Allergies Coded Allergies: Shellfish Allergy (Verified Allergy, Unknown, 06/28/12) Contrast Media (Unverified Adverse Reaction, Mild, KIDNEY PROBLEMS, 04/24/18) Hydralazine (Unverified Adverse Reaction, Mild, dizziness, 04/24/18) KATELIN CAMARGO MD May 06, 2018 15:19
--- NOTE | 2018-05-06 17:18 | DS.PDOC ---
Discharge Summary General Date of Admission Apr 12, 2018 at 12:59 Date of Discharge 05/06/18 Discharge Summary PROCEDURES PERFORMED DURING STAY: [bone marrow biopsy ADMITTING DIAGNOSES: 1. [pancytopenia]. DISCHARGE DIAGNOSES: 1. [Pancytopenia) ]. COMPLICATIONS/CHIEF COMPLAINT: Pancytopenia, Esrd,Systolic Chf Acute On Chronic. HISTORY OF PRESENT ILLNESS: [This is a 62-year-old male with a past medical history of end-stage renal disease on hemodialysis Tuesdays, , and Saturdays, last dialysis was this past Wednesday, history of coronary artery disease status post multiple myocardial infarctions (MIs), history of two coronary artery bypass grafts (CABGs) one in 2000 and one in 2014 with 29 stents, history of hyperlipidemia, chronic systolic heart failure who presents to the emergency room with increasing shortness of breath since his last dialysis. According to the patient he has been having problems with nocturnal orthopnea that is being progressive to the point where he has to sit up to sleep. He went to Dr. Dinh to his clinic where he was sent to the emergency room (ER) for evaluation and admission for emergent dialysis. Patient is anuric at this time. He was just discharged from [facility] last week for non-ST elevation myocardial infarction (HI) where he had a catheter placed and dialysis commenced. Again his last dialysis was this past Wednesday. Upon further history taking the patient did say that they had trouble with his blood pressure dropping during dialysis so not much fluid was withdrawn, apparently the patient has gained approximately 12 pounds since his last dialysis. He will be admitted for further management. HOSPITAL COURSE: 1. End-stage renal disease on hemodialysis in the setting of systolic congestive heart failure s/p HD as tolerated, some days BP was too low to tolerate HD. 2. Tunnel tract infection of right IJ Perm-A-Cath. 3. Pancytopenia. White count is 1.6, hemoglobin 7.5 and platelets 19. He is s/p bone marrow biopsy and 2 units of packed red blood cells with dialysis. He continues on aspirin and Plavix due to recent coronary stent. He continues on Aranesp for dialysis and Venofer. 4. Systolic congestive heart failure, acute on chronic. Mildly hypovolemic on exam. HD as tolerated (some days his bp was too low for HD), Continue Midodrine. 5. Coronary artery disease, severe and complicates his care. History of 29 stent, most recent stent was in January. Continue the low dose aspirin and plavix and statin. DISCHARGE MEDICATIONS: Please see below. ALLERGIES: Please see below. LABORATORY DATA: Please see below. IMAGING: TECHNIQUE: XR of the chest, 1 view. COMPARISON: CR PORTABLE CHEST X-RAY 04/19/2018 6:34 PM FINDINGS: Tubes, catheters and devices: There is a bilead pacemaker in place.. Large right-sided central line. Lungs: Streaky appearance of the lung bases could be early infiltrate. Pleural space: There is no evidence of pneumothorax. Heart/Mediastinum: There is cardiomegaly Vasculature: There is prominence of the vascular markings accentuated by a shallow depth inspiration. Bones/joints: Sternal wires are present. IMPRESSION: Prominent markings in the lung bases may be early infiltrate. CT abdomen and pelvis without IV or oral contrast: History: Shortness of breath. Comparison study January 11, 2015. Findings: The liver and the spleen are homogeneous in texture normal in size. Gallbladder is surgically absent. No adrenal lesion is seen. There is vascular calcification. No hydronephrosis or renal mass lesion is observed. There is a small cyst along the medial edge of the pancreas measuring 1.4 cm in greatest diameter. This appears to be unchanged from the comparison study. No pancreatic mass lesion is observed. Small and large bowel loops are normal in the abdomen and pelvis. Pararenal and perirenal fat compartments are hypertrophied bilaterally but this is unchanged. There is left colonic diverticulosis. A left hip prosthesis is noted in place and the patient is status post multilevel lumbar spine fusion. Impression: Status post cholecystectomy. No acute intra-abdominal abnormality. Left colonic diverticulosis. Normal appendix CT CHEST WITHOUT CONTRAST: HISTORY: Shortness of breath. Comparison is made with chest x-ray from April 19 2018. FINDINGS: There is no evidence of pleural effusion or pericardial effusion. Four-chamber cardiomegaly is observed. A pacemaker in the right heart. Extensive vascular calcification. Prior sternotomy is noted. A right IJ central venous catheter is seen with its tip in the SVC. Interstitial markings are increased in the anterior portions of the upper lobes bilaterally and to a lesser extent in the right middle lobe and lingula. There is a little fissural thickening in the major fissure. The interstitial markings are bilateral and symmetric and may reflect interstitial edema. No other significant pulmonary opacity. No evidence of adenopathy or mass lesion. IMPRESSION: Increased interstitial markings in the upper lobes bilaterally anteriorly and symmetrically. To some degree, there is involvement in the right middle lobe and lingula as well. Most likely interstitial edema. .] ACTIVITY: [As tolerated]. DIET: [renal diet] DISCHARGE CONDITION: [Stable]. TIME SPENT ON DISCHARGE: Greater than [45] minutes. Vital Signs/I&Os Vital Signs Date Time Temp Pulse Resp B/P (MAP) Pulse Ox O2 Delivery O2 Flow Rate FiO2 05/06/18 14:00 97.4 79 18 112/59 (76) 98 05/01/18 08:00 2.0 I&O- Last 24 Hours up to 6 AM 05/06/18 06:00 Intake Total 960 ml Output Total 2200 ml Balance -1240 ml Laboratory Data Labs 24H Laboratory Tests 2 05/05/18 20:09: Bedside Glucose (Misc Panel) 270H 05/06/18 05:21: Bedside Glucose (Misc Panel) 218H 05/06/18 11:36: Bedside Glucose (Misc Panel) 200H 05/06/18 17:12: Bedside Glucose (Misc Panel) 247H FSBS Laboratory Tests Test 05/05/18 20:09 05/06/18 05:21 05/06/18 11:36 05/06/18 17:12 Range/Units Bedside Glucose (Misc Panel) 270 218 200 247 80-115 MG/DL Microbiology Microbiology 04/26/18 Blood Culture - Final, Complete NO GROWTH AFTER 5 DAYS 04/28/18 Clostridium difficile (PCR) - Final, Complete 04/26/18 MRSA Screen - Final, Complete Discharge Medications Scheduled (Katya Wilde) 300 Unit/Ml Inj, 70 UNIT SC QHS, (Reported) (Folic Acid) 800 Mcg Cap, 2,400 MCG PO DAILY, (Reported) Aspirin (Aspirin 81) 81 Mg Tab, 81 MG PO DAILY, (Reported) Calcitriol (Calcitriol) 0.25 Mcg Cap, 0.25 MCG PO DAILY, (Reported) Carvedilol (Carvedilol) 3.125 Mg Tab, 3.125 MG PO BID, (Reported) Cholecalciferol (Vitamin D3) 1,000 Unit Tab, 2,000 UNIT PO DAILY, (Reported) Clopidogrel Bisulfate (Clopidogrel) 75 Mg Tab, 75 MG PO QHS, (Reported) Cyanocobalamin (Vitamin B12) 500 Mcg Tab, 500 MCG PO TID, (Reported) Febuxostat (Uloric) 80 Mg Tab, 80 MG PO QHS, (Reported) Filgrastim (Neupogen) 480 Mcg/0.8 Ml Soln, 480 MCG SC DAILY 480MCG Gabapentin (Gabapentin) 100 Mg Cap, 100 MG PO QHS, (Reported) Insulin Human Regular (Humulin R) 1 Units/0.01 Ml Soln, 0 SC ACHS, (Reported) PER SLIDING SCALE Melatonin (Melatonin) 5 Mg Tab, 5 MG PO QHS, (Reported) Midodrine HCl (Midodrine HCl) 5 Mg Tab, 5 MG PO 3XW, (Reported) MON,WED,FRI Pantoprazole Sodium (Pantoprazole Sodium) 40 Mg Tab, 40 MG PO BID, (Reported) Pravastatin Sodium (Pravastatin Sodium) 80 Mg Tab, 80 MG PO QHS, (Reported) Prednisone (Prednisone) 2.5 Mg Tab, 2.5 MG PO DAILY, (Reported) Ropinirole Hydrochloride (Ropinirole HCl) 1 Mg Tab, 1 MG PO QHS, (Reported) Sacubitril/Valsartan (Entresto 24-26 mg) 1 Tab Tab, 1 TAB PO BID, (Reported) Thiamine HCl (B-1) 250 Mg Tab, 250 MG PO DAILY, (Reported) Scheduled PRN Acetaminophen (Acetaminophen) 500 Mg Tab, 1,000 MG PO BID PRN for PAIN, (Reported) Bisacodyl (Dulcolax) 5 Mg Tab, 5 MG PO DAILY PRN for CONSTIPATION, (Reported) Docusate Sodium (Colace) 100 Mg Cap, 100 MG PO BID PRN for CONSTIPATION, (Re ported) Linaclotide Base (Linzess) 290 Mcg Cap, 290 MCG PO DAILY PRN for CONSTIPATION, (Reported) Nitroglycerin (Nitrostat) 0.4 Mg Subl, 0.4 MG SL NITRO PRN for CHEST PAIN, (Reported) Ondansetron HCl (Zofran) 4 Mg Tab, 4 MG PO Q8H PRN for NAUSEA, (Reported) Polyethylene Glycol (Miralax) 1 Pow Pow, 17 GM PO DAILY PRN for CONSTIPATION, (Reported) Senna (Senna-Lax) 8.6 Mg Tab, 1 TAB PO BID PRN for CONSTIPATION, (Reported) Simethicone (Simethicone) 80 Mg Chew, 80 MG PO Q6H PRN for GAS PAIN, (Reported) Allergies Coded Allergies: Shellfish Allergy (Verified Allergy, Unknown, 06/28/12) Contrast Media (Unverified Adverse Reaction, Mild, KIDNEY PROBLEMS, ) Hydralazine (Unverified Adverse Reaction, Mild, dizziness, 04/24/18) KATELIN CAMARGO MD May 06, 2018 17:18
--- NOTE | 2018-05-06 21:12 | IPN ---
DATE: 05/05/2018 He is a 62-year-old male with a history of congestive heart failure, coronary artery disease. He had a Parvovirus, Jessica-Salmeron virus. He had difficulty urinating. He is now on Flomax, feeling better. He is on oral vancomycin, feeling better. LABORATORY STUDIES: White count is normal at 6.6, hemoglobin 9.9, hematocrit 32.7, platelets 421. His chemistries: Electrolytes were normal. Anion gap was 7, BUN 38, creatinine 6 Hemoglobin A1c is 7.9, He has been doing well. He has just been severely weak, and he is participating with physical therapy. He continues on aspirin and Plavix as prior to admission. OBJECTIVE: Blood pressure 104/60, pulse 60, respirations 18. Patient alert and oriented times three. Pupils equal and reactive to light. Extraocular movements intact. Cornea and sclerae is clear. Conjunctivae is normal. No facial asymmetry. Pharynx: Tongue and gums pink and moist. Tongue is midline. Neck is supple without lymphadenopathy. No thyromegaly. No goiter. Chest: Decreased breath sounds. No wheezes or retractions. Heart is regular. Abdomen benign. Bowel sounds are positive. Genitalia/Rectal: Not done. Patient receiving dialysis today, tolerating well. Continue physical therapy. MTDD
--- NOTE | 2018-05-07 06:40 | IPN ---
DATE OF SERVICE: 05/06/2018 SUBJECTIVE: Patient was seen and examined at the bedside today morning. Patient is afebrile and hemodynamically stable. He was dialyzed yesterday and 2 liters of fluid was removed. The patient reports that he is getting ready to be possibly discharged today. OBJECTIVE: VITAL SIGNS: Temperature is 97.1 degrees Fahrenheit. Blood pressure 126/67. Pulse is 86. Respiratory rate of 16. Saturating 97% on room air. INTAKE AND OUTPUT: Urine output is not recorded from overnight. Ultrafiltration with hemodialysis was 2 liters. Weight on the bed scale is 72.4 kg. PHYSICAL EXAMINATION: GENERAL: The patient is awake, alert and oriented times three, sitting up in the bed, in no apparent distress. HEAD/NECK EXAM: Extraocular muscles intact. Pupils are equally round and reactive to light. Decreased vision in the right eye. Mucous membranes are moist. Neck is supple. He has a right internal jugular (IJ) tunnel hemodialysis catheter. CARDIOVASCULAR: S1 and S2, regular rate. No edema of the bilateral lower extremities. RESPIRATORY: Chest is clear to auscultation bilaterally. Bilateral equal air entry. No rales or rhonchi. ABDOMEN: Soft. Positive bowel sounds. Nontender. No organomegaly. MUSCULOSKELETAL: No clubbing or cyanosis. Pulses are 2+. CENTRAL NERVOUS SYSTEM: No focal deficit. Right eye is blind. LABORATORY REVIEW: CBC showed a WBC of 6.6, hemoglobin 9.1 and 9.9 from yesterday. There is no BMP available today. CURRENT INPATIENT MEDICATIONS: The patient's medications were all reviewed by me. There is no change in the medications today as compared with yesterday. ASSESSMENT AND PLAN: 1. End-stage renal disease on hemodialysis. The patient's regular dialysis days are Wednesday, , Wednesday. Next hemodialysis will be as outpatient tomorrow. 2. Chronic systolic congestive heart failure. Volume status is significantly well optimized. Patient's dry weight will be set as per his new weight when he goes to outpatient dialysis center. 3. Anemia and end-stage renal disease. The rest of the anemia management will be done as outpatient as per anemia protocol. 4. Disposition. It is okay to discharge the patient from a nephrology standpoint. He will be followed up as outpatient in dialysis center.
--- NOTE | 2018-05-23 11:52 | ROOPDOC ---
[facility] Report Of Operation Report of Operation DATE OF PROCEDURE: 04/26/2018 PREPROCEDURE DIAGNOSES: End-stage renal disease, infected right internal jugular vein tunneled central venous catheter. POSTPROCEDURE DIAGNOSES: End-stage renal disease, infected right internal jugular vein tunneled central venous catheter. PROCEDURE: Right internal jugular vein tunneled central venous catheter removal. SURGEON: Dr. Sheila Cruz M.D. INFORMATICA MDM ARCHITECT: None INDICATION: Patient is a 62-year-old male with end-stage renal disease who dialyzes through a right internal jugular vein tunneled central venous catheter. Patient now has infection of the right internal jugular vein tunneled central venous catheter. Patient will undergo removal of the right internal jugular vein tunneled central venous catheter. The procedure was explained and described to the patient in detail including drawing of pictures describing the procedure and pertinent anatomy associated with the procedure. Risks, benefits and alternative treatment options were discussed with the patient. Benefits included but were not limited to removal of the catheter with reduction in complications from central venous catheters. Alternative treatment options included but were not limited to no intervention. Risks included but were not limited to infection, bleeding, pneumothorax, hemothorax, possible need for open surgical intervention, adverse or allergic reaction to the local anesthetic, adverse or allergic reaction to the material used for surgical prepping and draping, nerve injury, cerebrovascular accident, myocardial infarction, pulmonary embolus, deep venous thrombosis, poor satisfaction, poor outcome, poor results, loss of limb and loss of life. Risks of not performing the procedure included but were not limited to infection, bleeding, central venous stenosis and/or thrombosis, loss of life and poor outcome. Patient's questions were answered. Patient voices understanding of these risks, benefits and alternative treatment options. Patient voices acceptance of these risks, benefits and alternative treatment options and consents to proceed with right internal jugular vein tunneled central venous catheter removal. There were no promises or guarantees made to the patient regarding the procedure or outcome. ANESTHESIA: None ESTIMATED BLOOD LOSS: 5 mL IV FLUIDS: None DRAINS: None CONTRAST: None COMPLICATIONS: None IMPLANTS: None SPECIMENS: None PROCEDURE: Patient was prepped and draped in a standard surgical fashion. A ti me out was completed by myself and all the team members in the room involved at the initiation of the procedure, confirming the correct patient , procedure and laterality. Manual traction was applied to the catheter which did release the subcutaneous cuff spontaneously. The catheter was then removed and manual compression applied at the exit site in the right chest and at the right internal jugular vein entry site for hemostasis. Once hemostasis was achieved, dressings were then applied. Patient tolerated the procedure well and was in stable condition at the end of the removal of the tunneled central venous catheter. All instrument, sponge and needle counts were correct at the end of the case. There were no complications. Dr. Cruz was present for and directed the entire case. Patient remained in his room in stable condition. The procedure and results were discussed with the patient at the end of the case with all of their questions being answered. The procedure and the results were discussed with the patient's family at the end of the case with all of their questions being answered. Brenden Cruz MD May 23, 2018 11:52
--- NOTE | 2018-05-23 12:40 | ROOPDOC ---
[facility] Report Of Operation Report of Operation DATE OF PROCEDURE: 04/28/2018 PREPROCEDURE DIAGNOSES: End-stage renal disease requiring access for hemodialysis status post removal of a right internal jugular vein tunneled central venous catheter which was infected. POSTPROCEDURE DIAGNOSES: Stage renal disease requiring access for hemodialysis status post removal of a right internal jugular vein tunneled central venous catheter which was infected. PROCEDURE: Ultrasound guided right internal jugular vein cannulation. Fluoroscopic guided right internal jugular vein 19 cm tip to cuff tunneled central venous catheter placement with ARROW EDGE dual-lumen catheter. SURGEON: Dr. Sheila Cruz M.D. RECEPTIONIST CLERK: Blake Means INDICATION:Patient is 62-year-old male with end-stage renal disease who previously dialyzes through a right internal jugular vein tunneled central venous catheter which was removed secondary to infection. Patient now requires replacement of a catheter for renal replacement therapy via hemodialysis. Patient will undergo ultrasound and fluoroscopic guided placement of a right internal jugular vein tunneled central venous catheter. The procedure was described and explained to the patient in detail including drawing of pictures demonstrating the procedure and the pertinent anatomy associated with the procedure. Risks, benefits and alternative treatment options were discussed with the patient. Alternative treatment options included but were not limited to no intervention. Benefits included but were not limited to access for renal replacement therapy via hemodialysis until permanent access for renal replacement therapy is created. Risks included, but were not limited to infection, bleeding, pneumothorax, hemothorax, possible need for open surgical intervention, allergic reaction or complication from prepping and draping materials, possible need for transfusion of blood products, allergic reaction or complication from the sedation medications or local anesthetic, cerebrovascular accident, myocardial infarction, pulmonary embolus, deep venous thrombosis, poor outcome, poor results, poor satisfaction, loss of limb and loss of life. The patient's questions were answered. The patient voices understanding of these risks, benefits and alternative treatment options. The patient voices acceptance of the risks associated with the procedure and agrees and consents to proceed with an ultrasound and fluoroscopic guided right internal jugular vein tunneled central venous catheter insertion. No promises or guarantees were made to the patient regarding the outcome and/or results of the procedure. ANESTHESIA: Local with 20 cc of 2% lidocaine. SEDATION TIME: None. ESTIMATED BLOOD LOSS: 5 mL's. IVF: 100 mL's. FLUOROSCOPIC TIME: 1.2 min. CONTRAST: None COMPLICATIONS: None IMPLANTS: Right internal jugular vein 19 cm tip to cuff tunneled central venous catheter placement with Arrow Edge dual-lumen split catheter. SPECIMENS: None DRAINS: None PROCEDURE: Patient was taken to the angiography suite, placed supine on the angiography room table and the patient was prepped and draped in a standard surgical fashion. A time out was performed by myself and the team members in the room confirming the correct patient, procedure and laterality, Ultrasound was used to evaluate the right internal jugular vein, which was noted to be easily compressible free of thrombus and widely patent. Ultrasound was then used to guide cannulation of the right internal jugular vein with a micro- puncture needle after anesthetizing the overlying skin and subcutaneous tissue with 2% lidocaine. The ultrasound guided cannulation was performed using concurrent real-time ultrasound visualization of the needle entry into the right internal jugular vein with permanent recording of the image performed. The micropuncture wire was then advanced through the micropuncture needle which was upsized to a micropuncture sheath. An Amplatz wire was then advanced through the micropuncture sheath under fluoroscopic guidance. The right internal jugular vein was then sequentially dilated under fluoroscopic guidance and an introducer sheath was positioned under fluoroscopic guidance. A 19 cm tip to cuff catheter was then tunneled through a puncture wound in the right chest and brought out at the puncture wound at the right internal jugular vein entry site after anesthetizing the overlying skin and subcutaneous tissue with 2% lidocaine. The catheter was advanced through the introducer sheath and positioned with the tip in the superior vena cava right atrial junction under fluoroscopic guidance. The introducer sheath was peeled away and removed. The Amplatz wire was advanced through both ports of the catheter. Both ports of the catheter were then aspirated, noted to aspirate easily and then flushed with heparinized saline. The catheter was secured to the anterior chest wall using 2-0 Prolene suture after anesthetizing the overlying skin and subcutaneous tissue with 2% lidocaine. The puncture wound in the right neck was closed using a 3-0 Vicryl suture in an inverted interrupted fashion. All instrument, sponge and needle counts were correct at the end of the case. There were no complications. Dr. Cruz was present for and directed the entire case. The tunneled central venous catheter is stable for use for hemodialysis access. RADIOLOGIC SUPERVISION AND INTERPRETATION: The ultrasound of the right internal jugular vein showed the vein to be widely patent, easily compressible and free of thrombus. Ultrasound was then used to guide cannulation of the right internal jugular vein. The ultrasound guided cannulation was performed using concurrent real-time ultrasound visualization of the needle entry into the right internal jugular vein with permanent recording of the image performed. The right internal jugular vein was sequentially dilated under fluoroscopic guidance. An introducer sheath was placed under fluoroscopic guidance. The catheter was advanced through the introducer sheath under fluoroscopic guidance and the tip of the catheter was placed in the superior vena cava right atrial junction.. The final fluoroscopic image showed the catheter to be in good pos ition and good alignment with the tip in the superior vena cava right atrial junction. Final fluoroscopic image showed the catheter to be in good position and good alignment with the tip in the superior vena cava right atrial junction with no pneumo-or hemothorax noted. The tunneled central venous catheter is stable for use for hemodialysis access. Brenden Cruz MD May 23, 2018 12:40
== END 2018-05-06 17:50 | disposition home health service (06) | DRG 291 ==
LOC: M ED 10:01 → M ED INP 14:06 → M MSPAV 15:30 → OBSVTOIN 04-12 12:59 → M PCU 04-20 09:30 → M MS4PR 05-04 04:31
PROVIDERS: ADMIT Internal Medicine; ATTEND Internal Medicine
PROC: 5A1D70Z Performance of Urinary Filtration, Intermittent, Less than 6 Hours Per Day (ICD-10-PCS; principal; 2018-04-12)
PROC: 30233R1 Transfusion of Nonautologous Platelets into Peripheral Vein, Percutaneous Approach (ICD-10-PCS; 2018-04-17)
PROC: 07DR3ZX Extraction of Iliac Bone Marrow, Percutaneous Approach, Diagnostic (ICD-10-PCS; 2018-04-20)
PROC: 30233N1 Transfusion of Nonautologous Red Blood Cells into Peripheral Vein, Percutaneous Approach (ICD-10-PCS; 2018-04-22)
PROC: 05PY33Z Removal of Infusion Device from Upper Vein, Percutaneous Approach (ICD-10-PCS; 2018-04-26)
PROC: 06HM33Z Insertion of Infusion Device into Right Femoral Vein, Percutaneous Approach (ICD-10-PCS; 2018-04-27)
PROC: 02HV33Z Insertion of Infusion Device into Superior Vena Cava, Percutaneous Approach (ICD-10-PCS; 2018-04-28)
PROC: 0JH63XZ Insertion of Tunneled Vascular Access Device into Chest Subcutaneous Tissue and Fascia, Percutaneous Approach (ICD-10-PCS; 2018-04-28)
DX: I13.2 Hypertensive heart and chronic kidney disease with heart failure and with stage 5 chronic kidney disease, or end stage renal disease (principal); I50.23 Acute on chronic systolic (congestive) heart failure; N18.6 End stage renal disease; N25.81 Secondary hyperparathyroidism of renal origin; D61.818 Other pancytopenia; T82.7XXA Infection and inflammatory reaction due to other cardiac and vascular devices, implants and grafts, initial encounter; B00.2 Herpesviral gingivostomatitis and pharyngotonsillitis; K92.2 Gastrointestinal hemorrhage, unspecified; I25.10 Atherosclerotic heart disease of native coronary artery without angina pectoris; E11.22 Type 2 diabetes mellitus with diabetic chronic kidney disease; I25.2 Old myocardial infarction; D63.1 Anemia in chronic kidney disease; E11.649 Type 2 diabetes mellitus with hypoglycemia without coma; E11.40 Type 2 diabetes mellitus with diabetic neuropathy, unspecified; M06.9 Rheumatoid arthritis, unspecified; B27.90 Infectious mononucleosis, unspecified without complication; G25.81 Restless legs syndrome; K21.9 Gastro-esophageal reflux disease without esophagitis; R68.84 Jaw pain; J44.9 Chronic obstructive pulmonary disease, unspecified; K59.04 Chronic idiopathic constipation; E78.5 Hyperlipidemia, unspecified; R04.0 Epistaxis; G62.9 Polyneuropathy, unspecified; I25.5 Ischemic cardiomyopathy; Z99.2 Dependence on renal dialysis; Z95.5 Presence of coronary angioplasty implant and graft; Z95.0 Presence of cardiac pacemaker; Z88.8 Allergy status to other drugs, medicaments and biological substances; Z91.041 Radiographic dye allergy status; Z79.82 Long term (current) use of aspirin; Z79.02 Long term (current) use of antithrombotics/antiplatelets; Z79.4 Long term (current) use of insulin; Z79.899 Other long term (current) drug therapy; Z86.73 Personal history of transient ischemic attack (TIA), and cerebral infarction without residual deficits; Z90.49 Acquired absence of other specified parts of digestive tract; Z98.49 Cataract extraction status, unspecified eye; Y83.1 Surgical operation with implant of artificial internal device as the cause of abnormal reaction of the patient, or of later complication, without mention of misadventure at the time of the procedure; Z91.013 Allergy to seafood

== ENCOUNTER 2018-05-11 16:40 | Inpatient (IN) | payer OTHER, MEDICARE ==
[~2018-05-11] VITALS: Ht 172.7 cm; Wt 77.9 kg
[~2018-05-11 16:40] MED LIST changes: +ACET500T15 PO; +B-1250TA2 PO; +ENTR1TAB PO; +FILG48VL SC; +FOLI800C PO; +INSURSDRX SC; +MELA5TAB21 PO; +MIDO5TA PO; +SIME80TA PO
[2018-05-11 18:13] LABS: BASO # 0.1 10^3/uL (0.0-0.2); BASO % 0.4 % (0.0-1.0); HEMOGLOBIN 10.2 g/dl (13.5-17.5); LYMPH # 1.4 10^3/uL (1.5-4.5); LYMPH % 5.9 % (24.0-44.0); MEAN CORPUSCULAR HEMOGLOBIN 30.7 pg (27.0-33.0); MEAN CORPUSCULAR HGB CONC 31.9 g/dl (32.0-36.5); MEAN CORPUSCULAR VOLUME 96.4 fl (80.0-96.0); MONO # 1.7 10^3/uL (0.0-0.8); NEUTROPHILS # 20.4 10^3/uL (1.8-7.7); NEUTROPHILS % 85.7 % (36.0-66.0); PLATELET COUNT, AUTOMATED 328 10^3/uL (150-450); RED BLOOD COUNT 3.32 10^6/uL (4.30-6.10); WHITE BLOOD COUNT 23.8 10^3/uL (4.0-10.0)
[2018-05-11 18:24] LABS: INR 1.14; PROTHROMBIN TIME 14.8 SECONDS (12.1-14.4)
[2018-05-11 18:25] LABS: PARTIAL THROMBOPLASTIN TIME 42.2 SECONDS (25.4-37.6)
[2018-05-11] MEDS ORDERED: VANCOMYCIN ORAL SOL 250MG/5ML ORAL SYRINGE PO ONE (18:30)
[2018-05-11 18:52] LABS: ALBUMIN 2.5 GM/DL (3.2-5.2); BILIRUBIN,DIRECT 0.2 MG/DL (0.0-0.2); BILIRUBIN,TOTAL 0.4 MG/DL (0.2-1.0); CALCIUM LEVEL 8.3 MG/DL (8.8-10.2); CREATININE FOR GFR 5.05 MG/DL (0.70-1.30); GLOMERULAR FILTRATION RATE 12.5 (>49); MB/CK RELATIVE INDEX 3.88 (< OR =4); POTASSIUM SERUM 3.9 MEQ/L (3.5-5.1); TOTAL PROTEIN 7.1 GM/DL (6.4-8.2); TROPONIN I 0.44 NG/ML (< 0.10)
--- NOTE | 2018-05-11 19:29 | REPVR ---
EXAM: CT Abdomen and Pelvis Without Contrast EXAM DATE/TIME: 05/11/2018 6:12 PM CLINICAL HISTORY: 62 years old, male; Pain; Abdominal pain; Generalized; Additional info: Pain/diarrhea TECHNIQUE: Axial computed tomography images of the abdomen and pelvis without contrast. All CT scans at this facility use at least one of these dose optimization techniques: automated exposure control; mA and/or kV adjustment per patient size (includes targeted exams where dose is matched to clinical indication); or iterative reconstruction. Coronal and sagittal reformatted images were created and reviewed. COMPARISON: CT ABD PELVIS W/O CONTRAST 04/22/2018 11:38 AM FINDINGS: Tubes, catheters and devices: There is a screw and bar device lower lumbar region. The lowest screw are fragmented. Lower thorax: There is interstitial density of the anterior aspect right and left upper lung. There is mild cardiomegaly. ABDOMEN: Liver: Normal liver. Pancreas: Normal appearing pancreas. Spleen: Normal spleen. Normal appearing spleen. Adrenals: Normal adrenal glands. Kidneys and ureters: Normal. No hydronephrosis. Stomach and bowel: There is no evidence of bowel obstruction. Appendix: Normal-appearing appendix. PELVIS: Bladder: Normal appearing urinary bladder. Reproductive: Normal-appearing prostate. ABDOMEN and PELVIS: Intraperitoneal space: There is no evidence of pneumoperitoneum. There is no evidence of free fluid in the abdomen or the pelvis. There is no evidence of mesenteric mass. There is irregularity of the inner margin of the left acetabulum. Bones/joints: A total left hip prosthesis is present. There is a grade 2 spondylolisthesis of L5 on S1. There is a total left hip prosthesis in alignment. Soft tissues: There is evidence of gynecomastia bilaterally. Vasculature: There is vascular calcification bilaterally. There is calcification of the aorta consistent with atherosclerotic changes. 1. 7 CM cystic structure at the head of the pancreas is probably a benign cyst since this has a similar appearance in 2015. There is calcification of the aorta consistent with atherosclerotic changes. Lymph nodes: No evidence of lymphadenopathy. Other findings: Postoperative changes are noted of the mediastinum. Sternal wires are present. IMPRESSION: 1. No evidence of bowel obstruction. 2. No evidence of free fluid. Electronically signed by: Ac Atwood On 05/11/2018 19:29:12 PM
[2018-05-11] MEDS ORDERED: ACETAMINOPHEN TAB 650MG DOSE (2X325MG) PO ONE (21:30)
[2018-05-11] MEDS ORDERED: NS 500 ML IV ONE (21:30)
[2018-05-11 23:12] LABS: MB/CK RELATIVE INDEX 3.19 (< OR =4); TROPONIN I 0.55 NG/ML (< 0.10)
[2018-05-12] MEDS ORDERED: GLUCAGON FOR INJ 1 MG VIAL (J1610) SC PRN
[2018-05-12] MEDS ORDERED: LEVEMIR (INSULIN DETEMIR) 1 UNITS/0.01ML SC ONE
[2018-05-12] MEDS ORDERED: DEXTROSE 50% 50 ML SYRINGE IV PRN
[2018-05-12] MEDS ORDERED: NITROGLYCERIN 0.4 MG SUBL TABLET SL PRN
[2018-05-12] MEDS ORDERED: GLUCOSE 4 GM CHEW TABLET PO PRN
[2018-05-12] MEDS: CARVedilol 3.125 MG TAB PO SCH ×3 (00:04→21:53)
[2018-05-12] MEDS: ENTRESTO 24-26MG TABLET (SACUBITRIL/VALSARTAN) PO SCH ×3 (00:09→21:00)
[2018-05-12] MEDS ORDERED: IPRATROPIUM 0.5MG/ALBUTEROL 2.5MG INH SOL UD 3ML (DUONEB)(J7620) NEB PRN (00:30)
[2018-05-12] MEDS: LEVEMIR (INSULIN DETEMIR) 1 UNITS/0.01ML SC SCH ×2 (01:24→20:34)
[2018-05-12] MEDS: rOPINIRole 1MG TAB PO SCH ×2 (01:26→20:32)
[2018-05-12] MEDS: CLOPIDOGREL 75 MG TAB PO SCH ×2 (01:26→20:32)
[2018-05-12] MEDS: PANTOPRAZOLE 40MG TAB (PROTONIX) PO SCH ×3 (01:27→20:33)
[2018-05-12] MEDS: FEBUXOSTAT 40 MG TABLET (ULORIC) PO SCH ×2 (01:27→20:33)
[2018-05-12] MEDS: PRAVASTATIN 20 MG TAB PO SCH ×2 (01:27→20:32)
[2018-05-12] MEDS: GABAPENTIN 100 MG CAP PO SCH ×2 (01:27→20:32)
[2018-05-12] MEDS: ACETAMINOPHEN 500 MG TAB PO PRN ×3 (05:42→23:31)
[2018-05-12] MEDS: VANCOMYCIN ORAL SOL 250MG/5ML ORAL SYRINGE PO SCH ×5 (05:43→23:31)
[2018-05-12] MEDS ORDERED: HEPARIN SOD (PORCINE) 5000 UNITS/ML VIAL SC SCH (06:00)
[2018-05-12 06:21] LABS: HEMATOCRIT 29.2 % (42.0-52.0); HEMOGLOBIN 9.2 g/dl (13.5-17.5); MEAN CORPUSCULAR HEMOGLOBIN 30.1 pg (27.0-33.0); MEAN CORPUSCULAR HGB CONC 31.5 g/dl (32.0-36.5); MEAN CORPUSCULAR VOLUME 95.4 fl (80.0-96.0); PLATELET COUNT, AUTOMATED 282 10^3/uL (150-450); RED BLOOD COUNT 3.06 10^6/uL (4.30-6.10); WHITE BLOOD COUNT 24.9 10^3/uL (4.0-10.0)
[2018-05-12 06:50] LABS: CALCIUM LEVEL 8.7 MG/DL (8.8-10.2); CREATININE FOR GFR 5.08 MG/DL (0.70-1.30); GLOMERULAR FILTRATION RATE 12.4 (>49); POTASSIUM SERUM 4.1 MEQ/L (3.5-5.1); TROPONIN I 0.62 NG/ML (< 0.10)
--- NOTE | 2018-05-12 07:37 | HPE ---
DATE OF ADMISSION: 05/11/2018 CHIEF COMPLAINT: Loose stools for the past three to four days. HISTORY OF PRESENT ILLNESS: Patient is a 62-year-old male with significant past medical history of end stage renal disease (ESRD) on hemodialysis Wednesday, , Wednesday schedule, coronary artery disease (CAD) status post coronary artery bypass grafting (CABG) and multiple stents, chronic obstructive pulmonary disease (COPD) on oxygen 2 liters at night as well as steroid dependent, systolic congestive heart failure (CHF), hyperlipidemia, diabetes, he is status post pacemaker, and also has a history of gout. He presents to the emergency room with three to four days of loose stools with some abdominal pain during defecation. He denies any nausea or vomiting. He does endorse generalized weakness. He denies any cough, chest pain, shortness of breath, fevers, chills. In the emergency room, a stool was sent and was positive for C. Difficile. He also had a mild elevation of troponin of 0.44, repeat 0.55, no ischemic changes. No chest pain, no shortness of breath, no palpitations. PAST MEDICAL HISTORY: See history of present illness. PAST SURGICAL HISTORY: CABG. Back surgery. Cholecystectomy. Cataract surgery. Left hip surgery. Pacemaker placement. ALLERGIES: 1. CONTRAST MEDIA. 2. HYDRALAZINE. 3. Shellfish. HOME MEDICATIONS: - Entresto - aspirin - Coreg - Plavix - calcitriol - Uloric - gabapentin - Toujeo 70 - midodrine - nitroglycerin - Protonix - Pravachol - prednisone - ropinirole - thiamine - vitamin D - sliding scale - multiple medications for constipation FAMILY HISTORY: Coronary artery disease. SOCIAL HISTORY: Denies tobacco, alcohol or illicit drug use. REVIEW OF SYSTEMS: A 12 point review of systems was completed, all of which were negative except those listed in the history of present illness. VITAL SIGNS ON ADMISSION: T-max of 101.9, pulse initially in the 100s, respirations of 16, satting at 97% on room air. PHYSICAL EXAMINATION: GENERAL: Well nourished, in no apparent distress. HEAD: Normocephalic, atraumatic. EYES: Extraocular movements are intact. Pupils equal, round, reactive to light. NECK: Supple. No jugular venous pressure (JVP). LUNGS: Clear to auscultation. No crackles, wheezes, rales or rhonchi. CARDIOVASCULAR: Regular rate and rhythm. Normal S1 and S2. No murmurs, gallops, or rubs. ABDOMEN: Soft, nontender, nondistended. Positive bowel sounds. No rebound or guarding. EXTREMITIES: No pitting edema or calf tenderness. SKIN: Intact. No rashes, lesions or breakdowns. NEUROLOGICAL EXAM: Alert and oriented times three. No focal deficits appreciated on exam. LABS AND IMAGING COMPLETED IN THE EMERGENCY ROOM: White count of 23, hemoglobin and hematocrit of 10/32, platelet count of 328. Coags: INR 1.14. Chemistries: BUN and creatinine of 45/5, lactic acid 2.14, repeat 1.2, troponin was 0.44, repeat 0.55. EKG shows no ischemic changes. CT of the abdomen and pelvis no evidence of bowel obstruction. No evidence of free fluid. ASSESSMENT/PLAN: Sepsis secondary to C. difficile colitis. The patient is to be on contact precautions. Vancomycin by mouth 125 mg every 6 hours. ESRD. Continue dialysis as per schedule. Dr. Dinh has been consulted in the ER. CAD status post CABG. Indeterminate troponin to 0.44, 0.55. Likely unable to clear the troponin secondary to CKD. The patient has no chest pain, no shortness of breath, does not appear to be in ACS. Will continue to cycle troponins as well as tele. Had an echo done 03/17/2018 and will not repeat echo at this point, which shows left ventricular upper limit normal size at the end diastole. Normal LV thickness. Multiple wall motion abnormalities. Ejection fraction (EF) of 35%. Would continue his aspirin, Plavix, Coreg and nitroglycerin as needed. Hyperlipidemia. Continue statin. Systolic CHF. Dialysis as per schedule. Diabetes. Insulin sliding scale and low acting insulin, Toujeo. He is status post pacemaker. DuoNebs as needed. Oxygen at night. Supportive deep vein thrombosis (DVT) prophylaxis with sequential compression devices (SCD). Gastrointestinal (GI) prophylaxis. Patient is already on a proton pump inhibitor (PPI). Diet: Diabetic, renal dialysis diet.
--- NOTE | 2018-05-12 09:09 | ECGEPIP ---
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
[2018-05-12] MEDS: VITAMIN D 1,000 INTERNATIONAL UNITS TABLET PO SCH (09:55)
[2018-05-12] MEDS: predniSONE 2.5 MG TAB PO SCH (09:55)
[2018-05-12] MEDS: CALCITRIOL 0.25 MCG CAP (S0169) PO SCH (09:55)
[2018-05-12] MEDS: ASPIRIN 81 MG ENTERIC TAB PO SCH (09:55)
[2018-05-12] MEDS: LACTOBACILLUS ACIDOPHILUS CAP (BACID) PO SCH ×3 (09:56→20:33)
[2018-05-12] MEDS: HumaLOG INSULIN (NovoLOG) PER UNIT SC SCH ×3 (09:57→17:17)
[2018-05-12] MEDS: HEPARIN SOD (PORCINE) 5000 UNITS/ML VIAL SQ SCH ×2 (10:02→20:33)
[2018-05-12] MEDS: THIAMINE 100 MG TAB PO SCH (10:08)
[2018-05-12] MEDS ORDERED: HEPARIN 1,000 UNITS/ML 10ML VIAL (FOR RADIOLOGY& DIALYSIS ONLY) XX ONE (12:00)
[2018-05-12] MEDS: MIDODRINE 5 MG TAB PO SCH (12:22)
[2018-05-12 12:30] LABS: MB/CK RELATIVE INDEX 2.11 (< OR =4); TROPONIN I 0.59 NG/ML (< 0.10)
[2018-05-12 16:25] VITALS: BP 138/65
--- NOTE | 2018-05-12 17:49 | IPN ---
DATE: 05/12/2018 SUBJECTIVE: Patient admitted overnight with diarrhea, diagnosed with Clostridium (C) difficile. Currently feels generalized weak, fatigued, with no energy. Denies any chest pain, pressure or discomfort. Denies any shortness of breath. VITAL SIGNS: Maximum temperature (T-max) 101.1, current temperature (T-current) 99.1, heart rate 82, respirations 18, blood pressure 115/62, pulse oximetry 100% on room air. LABORATORY DATA: WBC 24.9, hemoglobin and hematocrit 9.2/29.2, platelets 282. Chemistry: Sodium 132, potassium 4.1, chloride 101, bicarbonate 24, BUN 47, creatinine 5.08, troponin 0.55, 0.62, 0.59. PHYSICAL EXAMINATION: GENERAL: Patient alert, comfortable, frail, in no acute distress. HEENT: Normocephalic, atraumatic. Moist mucous membranes. Neck supple. PULMONARY: Bilateral clear, no wheezes, rales, or rhonchi. CARDIAC: Regular, S1, S2, 2/6 systolic murmur. ABDOMEN: Soft, nontender, hyperactive bowel sounds. EXTREMITIES: No edema bilateral lower extremities. ASSESSMENT AND PLAN: This is a 62-year-old male patient with underlying medical history of end-stage renal disease on dialysis Wednesday, , Wednesday, coronary artery disease with coronary artery bypass graft (CABG), multiple stents, systolic congestive heart failure (CHF) with ejection fraction of 35% with severe global hypokineses, chronic obstructive pulmonary disease (COPD) on two liters oxygen at night and on steroids at home, dyslipidemia, diabetes, also with pacemaker, history of gout, recently treated for altered mental status, fevers, pneumonia and discharged home, presented with diarrhea, found to have Clostridium (C) difficile colitis. 1. Clostridium (C) difficile colitis. Vancomycin by mouth. Supportive care. Monitor electrolytes. 2. End-stage renal disease. Nephrology consulted for dialysis. Continue home medications. 3. Troponin elevation with EKG changes compared to previous. Possible demand ischemia. Patient with severe underlying heart disease. Serial troponin. Telemetry monitoring. Echocardiogram. Will consult cardiology. CK-MB index has been negative up until this point. Continue aspirin, Plavix, Coreg, midodrine, pravastatin, Entresto. Further management as per cardiology. 4. History of chronic obstructive pulmonary disease (COPD). Continue steroids. Oxygen supplementation. Currently not having any wheeze. 5. Systolic congestive heart failure (CHF) with ejection fraction of 35%. Patient is euvolemic. Fluid management as per nephrology and dialysis. 6. Dyslipidemia. Continue statin. 7. Diabetes. Basal bolus insulin. Followup finger sticks. 8. Diabetic neuropathy. Continue current medication, patient on Neurontin. 9. Gastroesophageal reflux disease (GERD). Continue proton pump inhibitor (PPI). 10. Restless legs. Continue Requip. DISPOSITION: Pending cardiology consult, echocardiogram, clinical improvement, likely discharge in the next 2-3 days.
[2018-05-12 20:21] LABS: MB/CK RELATIVE INDEX 1.59 (< OR =4); TROPONIN I 0.46 NG/ML (< 0.10)
--- NOTE | 2018-05-12 21:28 | CR ---
DATE OF CONSULTATION: 05/12/2018 REQUESTING: Kristine Samaniego MD. REASON FOR CONSULTATION: Management of end-stage renal disease on hemodialysis. HISTORY OF PRESENT ILLNESS: Solitario Clark is a 62-year-old male with a past medical history of end-stage renal disease on hemodialysis on a Wednesday, , Wednesday scheduled, recently started chronic hemodialysis within the past two months, history of severe coronary artery discharge, status post coronary artery bypass graft (CABG) and also status post a total of 29 stents, chronic obstructive pulmonary disease (COPD) on 2 liters of oxygen at night, systolic congestive heart failure, dyslipidemia, insulin-dependent diabetes mellitus, status post pacemaker, history of gout, secondary hyperparathyroidism and other comorbid conditions mentioned below. The patient recently had a prolonged hospitalization stay from April 11 to May 06. The patient states that he was in his usual state of health at home up until four days ago when he started experiencing recurrent watery bowel movements and became progressively more and more weak. He presented to the emergency room (ER) yesterday when he felt that he was too weak to walk around the house. Work up in the emergency room revealed leukocytosis with white count of 23,000 and stool study showed positive for Clostridium difficile. The patient was subsequently admitted for further supportive care and antibiotic therapy and T-max in the emergency room was 101.9. Nephrology was consulted for management of his renal failure on dialysis. The patient reports that his last treatment was on Wednesday. PAST MEDICAL AND SURGICAL HISTORY: 1. Congestive heart failure (CHF) with reduced ejection fraction. 2. Extensive coronary artery disease with 29 stents and history of coronary artery bypass grafting times two. 3. Dyslipidemia. 4. Type 2 diabetes mellitus, insulin dependent. 5. Hypertension. 6. Chronic obstructive pulmonary disease (COPD). 7. History of cerebrovascular accident (CVA) in the past. 8. History of pancytopenia in the past. 9. Gout. 10. End-stage renal disease on hemodialysis. PAST SURGICAL HISTORY: 1. PermCath placement. 2. Coronary artery bypass grafting times two, once in 2000, second time in 2014. 3. Multiple coronary angioplasties with a total of 29 stents. 4. Status post cholecystectomy. 5. Status post left hip surgery. 6. Status post pacemaker placement. 7. History of cataract surgery. 8. Back surgery. ALLERGIES: Hydralazine and shellfish . FAMILY HISTORY: There is significant family history of coronary artery disease, multiple deaths in family members in their 50s because of heart disease. SOCIAL HISTORY: He is . He lives at home. Denies illicit drug abuse, alcohol abuse or smoking. REVIEW OF SYSTEMS: CONSTITUTIONAL: The patient reports feeling very weak, tired and easily fatigued. EYES: Denies blurred vision, double vision. ENT: Denies rhinorrhea or epistaxis. Had some chronic mild odynophagia. CARDIOVASCULAR: He reports congestive heart failure, pacemaker. Denies shortness of breath, at present or palpations. RESPIRATORY: He denies any recent dyspnea or orthopnea. He uses oxygen at night. GASTROINTESTINAL (GI): He reports diarrhea as mentioned in the history of present illness. Three to four watery bowel movements per day for the past four days Clostridium difficile positive. GENITOURINARY (): He denies dysuria or hematuria. MUSCULOSKELETAL: He reports weakness in his legs. He denies any acute myalgias or arthralgias. 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 He denies seizures. SKIN: He denies any new rashes or ulcers. ENDOCRINE: He reports a history of type 2 diabetes mellitus and secondary hyperparathyroidism. HEMATOLOGIC: He reports recent history of pancytopenia, which subsequently improved and history of bone marrow biopsy. All other review of systems is negative. PHYSICAL EXAMINATION: VITAL SIGNS: Temperature: T-max 101.9, T-current 99.1, pulse 82, respiratory rate 18, blood pressure 115/62, saturating 100% on room air. Intake is not recorded. Hemodialysis today removed 1000 mL. GENERAL: The patient is seen at the bedside in the emergency room, eating lunch, sitting upright in no acute distress. Appears old than stated age. Extraocular muscles are intact. Tongue is moist. Pupils are equal, round and reactive to light. There is a tunneled hemodialysis catheter present in the right chest. LUNGS: Clear to auscultation. No crackle or wheeze. CARDIAC: Clear to auscultation bilaterally. ABDOMEN: Soft and nondistended. There are bowel sounds throughout. EXTREMITIES: The lower extremities show no edema. NEUROLOGIC: He is oriented, interactive and appropriate. LABORATORY: White count 24.9, hemoglobin 9.2, platelets 282. Sodium 134, potassium 4.1, bicarbonate 24, lactate 1.2. GIPCR positive for Clostridium difficile. Blood cultures no growth for 24 hours times two sets. IMAGING: CT abdomen and pelvis. No pneumoperitoneum. No free fluid in the abdomen and pelvis. INPATIENT MEDICATIONS: The patient received normal saline 500 mL times one yesterday evening. He is on Entresto 24-26 mg one tablet by mouth twice a day, Tylenol as needed, aspirin 81 mg by mouth daily, calcitriol 0.25 mcg by mouth daily, carvedilol 3.125 mg by mouth twice a day, Plavix 75 mg by mouth at bedtime (q.h.s.), Uloric 80 mg by mouth at bedtime (q.h.s.), Neurontin 100 mg by mouth at bedtime (q.h.s.), heparin 5000 units subcutaneous twice a day, insulin, Bacid one each by mouth three times a day, midodrine 5 mg by mouth Wednesday, , Wednesday. Protonix 40 mg by mouth twice a day, Pravastatin 80 mg by mouth at bedtime (q.h.s.), prednisone 2.5 mg by mouth daily, Requip 1 mg by mouth at bedtime (q.h.s.), vancomycin 125 mg by mouth every 6 hours, vitamin D 2000 units by mouth daily. PROBLEMS: 1. End-stage renal disease on hemodialysis on a Wednesday, , Wednesday schedule. The patient is being dialyzed today per his maintenance schedule. Given that he has active Clostridium difficile colitis and recurrent watery diarrhea, I am only going to remove 1 liter of fluid despite his history of severe systolic congestive heart failure. 2. Clostridium difficile colitis. White blood cell count (WBC) of 24,000. CAT scan of the abdomen as noted. The patient is on oral vancomycin every 6 hours. Monitor white count and fever spikes. He will have a gentle dialysis treatment today in view of the colitis, diarrhea, infection. 3. Systolic congestive heart failure with ejection fraction of 35%. Volume status is acceptable at present and is principally managed via dialysis. He will have a decreased goal fluid removal of 1 liter today with dialysis in view of his Clostridium difficile colitis. In terms of his heart failure, he also continues Entresto and beta claudia with holding parameters. Hypotension of hemodialysis complicates his treatment, so he continues on midodrine on dialysis days. Thank you for involving me in the care of Mr. Clark. I will be happy to follow him along with you.
[2018-05-12 22:00] VITALS: BP 101/57
--- NOTE | 2018-05-13 00:39 | ECGEPIP ---
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
--- NOTE | 2018-05-13 00:43 | ECGEPIP ---
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
[2018-05-13] MEDS: VANCOMYCIN ORAL SOL 250MG/5ML ORAL SYRINGE PO SCH (05:10)
[2018-05-13] MEDS: ACETAMINOPHEN 500 MG TAB PO PRN (05:29)
[2018-05-13 05:51] LABS: HEMATOCRIT 28.4 % (42.0-52.0); HEMOGLOBIN 9.1 g/dl (13.5-17.5); MEAN CORPUSCULAR HEMOGLOBIN 29.9 pg (27.0-33.0); MEAN CORPUSCULAR VOLUME 93.4 fl (80.0-96.0); PLATELET COUNT, AUTOMATED 283 10^3/uL (150-450); RED BLOOD COUNT 3.04 10^6/uL (4.30-6.10); WHITE BLOOD COUNT 25.3 10^3/uL (4.0-10.0)
[2018-05-13 06:00] VITALS: BP 103/58
[2018-05-13 06:13] LABS: CREATININE FOR GFR 3.69 MG/DL (0.70-1.30); MAGNESIUM LEVEL 1.9 MG/DL (1.8-2.4); POTASSIUM SERUM 3.7 MEQ/L (3.5-5.1)
[2018-05-13] MEDS: HumaLOG INSULIN (NovoLOG) PER UNIT SC SCH ×3 (07:30→17:11)
[2018-05-13] MEDS: predniSONE 2.5 MG TAB PO SCH (07:58)
[2018-05-13] MEDS: CALCITRIOL 0.25 MCG CAP (S0169) PO SCH (07:58)
[2018-05-13] MEDS: LACTOBACILLUS ACIDOPHILUS CAP (BACID) PO SCH ×3 (07:58→21:00)
[2018-05-13] MEDS: VITAMIN D 1,000 INTERNATIONAL UNITS TABLET PO SCH (07:58)
[2018-05-13] MEDS: THIAMINE 100 MG TAB PO SCH (08:00)
[2018-05-13] MEDS: PANTOPRAZOLE 40MG TAB (PROTONIX) PO SCH ×2 (08:00→21:00)
[2018-05-13] MEDS: CARVedilol 3.125 MG TAB PO SCH ×2 (08:00→21:00)
[2018-05-13] MEDS: ASPIRIN 81 MG ENTERIC TAB PO SCH (08:01)
[2018-05-13] MEDS: HEPARIN SOD (PORCINE) 5000 UNITS/ML VIAL SQ SCH ×2 (08:01→21:00)
[2018-05-13] MEDS: ENTRESTO 24-26MG TABLET (SACUBITRIL/VALSARTAN) PO SCH ×2 (08:02→21:00)
[2018-05-13] MEDS ORDERED: MIDODRINE 5 MG TAB PO SCH (09:00)
[2018-05-13] MEDS: FIDAXOMICIN 200 MG TAB (DIFICID) PO SCH ×2 (10:04→21:00)
[2018-05-13 14:00] VITALS: BP 99/52
--- NOTE | 2018-05-13 19:29 | IPNPDOC ---
Text Note Date of Service The patient was seen on 05/13/18. NOTE continued to feel generalized weak, fatigued, with no energy. Denies any chest pain, pressure or discomfort. Denies any shortness of breath. diarrhea mild improved, abd pain persisted PHYSICAL EXAMINATION: GENERAL: Patient alert, comfortable, frail, in no acute distress. HEENT: Normocephalic, atraumatic. Moist mucous membranes. Neck supple. PULMONARY: Bilateral clear, no wheezes, rales, or rhonchi. CARDIAC: Regular, S1, S2, 2/6 systolic murmur. ABDOMEN: Soft, mild tender, hyperactive bowel sounds. EXTREMITIES: No edema bilateral lower extremities. ASSESSMENT AND PLAN: This is a 62-year-old male patient with underlying medical history of end-stage renal disease on dialysis Wednesday, , Wednesday, coronary artery disease with coronary artery bypass graft (CABG), multiple stents, systolic congestive heart failure (CHF) with ejection fraction of 35% with severe global hypokineses, chronic obstructive pulmonary disease (COPD) on two liters oxygen at night and on steroids at home, dyslipidemia, diabetes, also with pacemaker, history of gout, recently treated for altered mental status, fevers, pneumonia and discharged home, presented with diarrhea, found to have Clostridium (C) difficile colitis. 1. Clostridium (C) difficile colitis. change vanco to Dificid. Supportive care. Monitor electrolytes. 2. End-stage renal disease. Nephrology consulted for dialysis. Continue home medications. 3. Troponin elevation with EKG changes compared to previous. Possible demand ischemia. Patient with severe underlying heart disease. Serial troponin. Telemetry monitoring. Echocardiogram. consulted Dr Gaines cardiology. awaiting rec. CK-MB index has been negative. Continue aspirin, Plavix, Coreg, midodrine, pravastatin, Entresto. Further management as per cardiology. 4. History of chronic obstructive pulmonary disease (COPD). Continue steroids. Oxygen supplementation. Currently not having any wheeze. 5. Systolic congestive heart failure (CHF) with ejection fraction of 35%. Patient is euvolemic. Fluid management as per nephrology and dialysis. 6. Dyslipidemia. Continue statin. 7. Diabetes. Basal bolus insulin. Followup finger sticks. 8. Diabetic neuropathy. Continue current medication, patient on Neurontin. 9. Gastroesophageal reflux disease (GERD). Continue proton pump inhibitor (PPI). 10. Restless legs. Continue Requip. dvt ppx heparin sq DISPOSITION: echocardiogram, clinical improvement, likely discharge in the next 2-3 days. VS,Fishbone, I+O VS, Fishbone, I+O Laboratory Tests 05/13/18 05:37 Red Blood Count 3.04 L, Mean Corpuscular Volume 93.4, Mean Corpuscular Hemoglobin 29.9, Mean Corpuscular Hemoglobin Concent 32.0, Red Cell Distribution Width 20.3 H, Calcium Level 9.0 Vital Signs Date Time Temp Pulse Resp B/P (MAP) Pulse Ox O2 Delivery O2 Flow Rate FiO2 05/13/18 08:00 94 99/53 05/13/18 06:52 100.2 05/13/18 06:00 17 99 05/12/18 12:20 Room Air I&O- Last 24 Hours up to 6 AM 05/13/18 05:59 Intake Total 420 ml Output Total 1000 ml Balance -580 ml FLORENTINO MANCILLA MD May 13, 2018 19:29
--- NOTE | 2018-05-13 20:44 | ECHO ---
DATE OF PROCEDURE: 05/13/2018 AGE: 62 GENDER: Male HEIGHT: 68 inches WEIGHT: 160 pounds BODY SURFACE AREA: 1.86 m2 PATIENT LOCATION: Inpatient, [address] [place] [address], room 4226 REFERRING PHYSICIAN: Kristine Samaniego MD INDICATION: Abnormal EKG. 2-D MEASUREMENTS: RV: 4.4 cm LV: 5.7 cm Septum: 1.2 cm Posterior wall: 1.2 cm Aortic root: 3.2 cm LA: 4.6 cm LVEF: 35% DOPPLER MEASUREMENTS: AV: 1.9 m/s LVOT: 0.93 m/s LVOT diameter: 1.6 cm MV-E: 110, A: 46, EA ratio: 2.4 Early mitral deceleration time: 180 ms E prime: 5.3, A prime: 7, E/E prime ratio: 20.8 PCWP: 18.6 mmHg PV: 0.8 m/s Pulmonary artery acceleration time: 109 ms RVSP: 56 mmHg IVC: 2.3 cm COMMENTS: Normal sinus rhythm at 89 beats per minute (BPM). M-mode and two-dimensional echocardiography was performed with pulsed, continuous wave, color flow and tissue Doppler studies. At least mildly dilated and borderline hypertrophied left ventricle with septal / anteroseptal and apical akinesis and moderately severe impairment of global resting systolic function. Moderately dilated left atrium with impairment of LV diastolic dysfunction and at least mildly elevated estimated mean left atrial pressure. Mildly dilated right heart chambers with right ventricular free wall hypokinesis and Doppler evidence of moderately severe pulmonary hypertension. Mildly dilated IVC with absent respiratory collapse in keeping with an elevated central venous pressure of 20 mmHg. Mild aortic valvular sclerosis without stenosis, but mild insufficiency. Normal aortic root size. Mild to moderate mitral annular calcification without inflow tract obstruction and no more than trace insufficiency. Normal appearing tricuspid valve with at least mild - moderate insufficiency. Pacing leads could be visualized traversing right heart structures, but no separate intracardiac mass. No pericardial effusion. Comparing today's study with that of March 07, 2018 there did not appear to be a significant change.
[2018-05-13] MEDS: rOPINIRole 1MG TAB PO SCH (21:00)
[2018-05-13] MEDS: CLOPIDOGREL 75 MG TAB PO SCH (21:00)
[2018-05-13] MEDS: PRAVASTATIN 20 MG TAB PO SCH (21:00)
[2018-05-13] MEDS: FEBUXOSTAT 40 MG TABLET (ULORIC) PO SCH (21:00)
[2018-05-13] MEDS: LEVEMIR (INSULIN DETEMIR) 1 UNITS/0.01ML SC SCH (21:00)
[2018-05-13] MEDS: GABAPENTIN 100 MG CAP PO SCH (21:00)
[2018-05-13 22:00] VITALS: BP 100/50
[2018-05-14 06:00] VITALS: BP 110/64
[2018-05-14] MEDS: LACTOBACILLUS ACIDOPHILUS CAP (BACID) PO SCH ×3 (06:08→21:00)
[2018-05-14] MEDS: PANTOPRAZOLE 40MG TAB (PROTONIX) PO SCH ×2 (06:08→22:24)
[2018-05-14] MEDS: ASPIRIN 81 MG ENTERIC TAB PO SCH (06:09)
[2018-05-14] MEDS: VITAMIN D 1,000 INTERNATIONAL UNITS TABLET PO SCH (06:09)
[2018-05-14] MEDS: CALCITRIOL 0.25 MCG CAP (S0169) PO SCH (06:09)
[2018-05-14] MEDS: FIDAXOMICIN 200 MG TAB (DIFICID) PO SCH ×2 (06:10→21:00)
[2018-05-14] MEDS: THIAMINE 100 MG TAB PO SCH (06:10)
[2018-05-14] MEDS: predniSONE 2.5 MG TAB PO SCH (06:11)
[2018-05-14] MEDS: CARVedilol 3.125 MG TAB PO SCH ×2 (06:11→22:23)
[2018-05-14] MEDS: MIDODRINE 5 MG TAB PO SCH ×3 (06:14→15:20)
[2018-05-14] MEDS: HEPARIN SOD (PORCINE) 5000 UNITS/ML VIAL SQ SCH ×2 (06:27→22:24)
[2018-05-14] MEDS: ENTRESTO 24-26MG TABLET (SACUBITRIL/VALSARTAN) PO SCH ×2 (06:27→22:24)
[2018-05-14 06:30] VITALS: BP 108/70
[2018-05-14 06:33] LABS: HEMATOCRIT 27.3 % (42.0-52.0); HEMOGLOBIN 8.7 g/dl (13.5-17.5); MEAN CORPUSCULAR HEMOGLOBIN 29.7 pg (27.0-33.0); MEAN CORPUSCULAR HGB CONC 31.9 g/dl (32.0-36.5); MEAN CORPUSCULAR VOLUME 93.2 fl (80.0-96.0); PLATELET COUNT, AUTOMATED 272 10^3/uL (150-450); RED BLOOD COUNT 2.93 10^6/uL (4.30-6.10); WHITE BLOOD COUNT 19.7 10^3/uL (4.0-10.0)
[2018-05-14 07:00] LABS: CALCIUM LEVEL 8.4 MG/DL (8.8-10.2); CREATININE FOR GFR 5.31 MG/DL (0.70-1.30); GLOMERULAR FILTRATION RATE 11.8 (>49); MAGNESIUM LEVEL 1.9 MG/DL (1.8-2.4); POTASSIUM SERUM 3.3 MEQ/L (3.5-5.1)
[2018-05-14] MEDS: HumaLOG INSULIN (NovoLOG) PER UNIT SC SCH ×3 (07:28→17:30)
[2018-05-14] MEDS: ONDANSETRON 4 MG TAB (S0181) PO PRN (08:18)
[2018-05-14] MEDS ORDERED: HEPARIN 1,000 UNITS/ML 10ML VIAL (FOR RADIOLOGY& DIALYSIS ONLY) IV ONE (11:00)
[2018-05-14] MEDS ORDERED: HEPARIN 1,000 UNITS/ML 10ML VIAL (FOR RADIOLOGY& DIALYSIS ONLY) XX ONE (11:00)
[2018-05-14] MEDS: ACETAMINOPHEN 500 MG TAB PO PRN ×2 (12:34→23:08)
[2018-05-14 14:00] VITALS: BP 91/53
--- NOTE | 2018-05-14 14:30 | IPN ---
DATE: 05/14/2018 Mr. Clark is seen this morning on his bedside. He is still complaining of severe abdominal pain and poor appetite. He was admitted with generalized weakness and diarrhea and has been noted to have C. difficile colitis. He is currently being treated with Dificid and diarrhea has slightly improved with only four to five loose stools per day. His weakness and lower abdominal pain persists. He denies any dyspnea or chest pain. He has history of end-stage renal disease and has been dialysis dependent. He is due for dialysis later today. PHYSICAL EXAMINATION: Temperature 97.7 degrees Fahrenheit, heart rate 84 per minute and respiratory rate 18 per minute. Blood pressure 108/70 mmHg and oxygen saturation 97%. His head is atraumatic. His right eye is prosthetic. His neck veins are mildly distended and there is no thyroid enlargement. Trachea is midline. His heart sounds are regular and lungs sound clear to auscultation. Abdomen is soft with marked tenderness particularly in the lower abdomen. Bowel sounds at present. Extremities have no cyanosis or clubbing. Skin has no rash or ulcers. Neurologically he is at his baseline mentation. Today's labs show WBC count 19.7, hemoglobin 8.7 and hematocrit 27.3. Platelets 272. Sodium 135, potassium 3.3, CO2 26, BUN 43 and creatinine 5.31. PROBLEMS: 1. End-stage renal disease. The patient is due for dialysis today and we will plan to dialyze him this afternoon. He seems very well dialyzed so far. 2. C. difficile colitis. The patient continues to have loose stools and lower abdominal pain and tenderness. He is currently on Dificid. Leukocytosis is improving. 3. Hypotension. The patient has chronic hypotension for which he has been on midodrine. Blood pressure is at about baseline. 4. Generalized weakness and deconditioning related to multiple comorbid conditions. He still quite weak and is likely to require physical therapy. 5. Coronary artery disease and congestive heart failure. The patient denies any chest pain and his volume status is very well compensated and in fact, he may be slightly dehydrated due to ongoing diarrhea. 6. Hypokalemia related. This related to poor oral intake and diarrhea. This will be corrected with dialysis as we are going to dialyze him with 4.0 mEq potassium bath.
[2018-05-14] MEDS ORDERED: DARBEPOETIN 100 MCG/0.5 ML *DIALYSIS* SYRINGE (J0882) IV SCH (15:30)
--- NOTE | 2018-05-14 18:51 | IPNPDOC ---
Text Note Date of Service The patient was seen on 05/14/18. NOTE Continued to feel generalized weak, fatigued, with no energy. Denies any chest pain, pressure or discomfort. Denies any shortness of breath. diarrhea persisted, abd pain persisted PHYSICAL EXAMINATION: GENERAL: Patient alert, comfortable, frail, in no acute distress. HEENT: Normocephalic, atraumatic. Moist mucous membranes. Neck supple. PULMONARY: Bilateral clear, no wheezes, rales, or rhonchi. CARDIAC: Regular, S1, S2, 2/6 systolic murmur. ABDOMEN: Soft, mild tender LLQ, hyperactive bowel sounds. EXTREMITIES: No edema bilateral lower extremities. ASSESSMENT AND PLAN: This is a 62-year-old male patient with underlying medical history of end-stage renal disease on dialysis Wednesday, , Wednesday, coronary artery disease with coronary artery bypass graft (CABG), multiple stents, systolic congestive heart failure (CHF) with ejection fraction of 35% with severe global hypokineses, chronic obstructive pulmonary disease (COPD) on two liters oxygen at night and on steroids at home, dyslipidemia, diabetes, also with pacemaker, history of gout, recently treated for altered mental status, fevers, pneumonia and discharged home, presented with diarrhea, found to have Clostridium (C) difficile colitis. 1. Clostridium (C) difficile colitis. change vanco to Dificid. Supportive care. Monitor electrolytes. 2. End-stage renal disease. Nephrology consulted for dialysis. Continue home medications. 3. Troponin elevation with EKG changes compared to previous. Possible demand ischemia. Patient with severe underlying heart disease. Serial troponin. Telemetry monitoring. Echocardiogram. consulted Dr Gaines cardiology. awaiting rec. CK-MB index has been negative. Continue aspirin, Plavix, Coreg, midodrine, pravastatin, Entresto. Further management as per cardiology. 4. History of chronic obstructive pulmonary disease (COPD). Continue steroids. Oxygen supplementation. Currently not having any wheeze. 5. Systolic congestive heart failure (CHF) with ejection fraction of 35%. Patient is euvolemic. Fluid management as per nephrology and dialysis. 6. Dyslipidemia. Continue statin. 7. Diabetes. Basal bolus insulin. Followup finger sticks. 8. Diabetic neuropathy. Continue current medication, patient on Neurontin. 9. Gastroesophageal reflux disease (GERD). Continue proton pump inhibitor (PPI). 10. Restless legs. Continue Requip. dvt ppx heparin sq DISPOSITION: clinical improvement, likely discharge in the next 2-3 days. PT VS,Fishbone, I+O VS, Fishbone, I+O Laboratory Tests 05/14/18 06:13 Red Blood Count 2.93 L, Mean Corpuscular Volume 93.2, Mean Corpuscular Hemoglobin 29.7, Mean Corpuscular Hemoglobin Concent 31.9 L, Red Cell Distribution Width 19.3 H, Calcium Level 8.4 L Vital Signs Date Time Temp Pulse Resp B/P (MAP) Pulse Ox O2 Delivery O2 Flow Rate FiO2 05/14/18 14:00 96.4 83 16 91/53 (66) 95 05/12/18 12:20 Room Air I&O- Last 24 Hours up to 6 AM 05/14/18 06:00 Intake Total 1140 ml Output Total 500 ml Balance 640 ml FLORENTINO MANCILLA MD May 14, 2018 18:51
[2018-05-14 22:00] VITALS: BP 101/56
[2018-05-14] MEDS: CLOPIDOGREL 75 MG TAB PO SCH (22:20)
[2018-05-14] MEDS: GABAPENTIN 100 MG CAP PO SCH (22:20)
[2018-05-14] MEDS: FEBUXOSTAT 40 MG TABLET (ULORIC) PO SCH (22:21)
[2018-05-14] MEDS: rOPINIRole 1MG TAB PO SCH (22:21)
[2018-05-14] MEDS: PRAVASTATIN 20 MG TAB PO SCH (22:22)
[2018-05-14] MEDS: LEVEMIR (INSULIN DETEMIR) 1 UNITS/0.01ML SC SCH (22:25)
[2018-05-15 06:00] VITALS: BP 90/56
[2018-05-15 06:56] LABS: HEMOGLOBIN 8.5 g/dl (13.5-17.5); MEAN CORPUSCULAR HEMOGLOBIN 29.3 pg (27.0-33.0); MEAN CORPUSCULAR HGB CONC 31.5 g/dl (32.0-36.5); MEAN CORPUSCULAR VOLUME 93.1 fl (80.0-96.0); PLATELET COUNT, AUTOMATED 303 10^3/uL (150-450); WHITE BLOOD COUNT 13.2 10^3/uL (4.0-10.0)
[2018-05-15 07:12] LABS: CALCIUM LEVEL 8.2 MG/DL (8.8-10.2); CREATININE FOR GFR 3.9 MG/DL (0.70-1.30); GLOMERULAR FILTRATION RATE 16.9 (>49); MAGNESIUM LEVEL 1.8 MG/DL (1.8-2.4); POTASSIUM SERUM 3.3 MEQ/L (3.5-5.1)
[2018-05-15] MEDS: predniSONE 2.5 MG TAB PO SCH (08:23)
[2018-05-15] MEDS: PANTOPRAZOLE 40MG TAB (PROTONIX) PO SCH ×2 (08:23→20:42)
[2018-05-15] MEDS: FIDAXOMICIN 200 MG TAB (DIFICID) PO SCH ×2 (08:24→20:45)
[2018-05-15] MEDS: LACTOBACILLUS ACIDOPHILUS CAP (BACID) PO SCH ×3 (08:24→20:44)
[2018-05-15] MEDS: VITAMIN D 1,000 INTERNATIONAL UNITS TABLET PO SCH (08:24)
[2018-05-15] MEDS: CALCITRIOL 0.25 MCG CAP (S0169) PO SCH (08:24)
[2018-05-15] MEDS: CARVedilol 3.125 MG TAB PO SCH ×2 (08:28→20:46)
[2018-05-15] MEDS: THIAMINE 100 MG TAB PO SCH (08:28)
[2018-05-15] MEDS: ASPIRIN 81 MG ENTERIC TAB PO SCH (08:28)
[2018-05-15] MEDS: HumaLOG INSULIN (NovoLOG) PER UNIT SC SCH ×3 (08:29→18:04)
[2018-05-15] MEDS: HEPARIN SOD (PORCINE) 5000 UNITS/ML VIAL SQ SCH ×2 (08:29→20:47)
[2018-05-15] MEDS: ENTRESTO 24-26MG TABLET (SACUBITRIL/VALSARTAN) PO SCH ×2 (08:40→20:47)
[2018-05-15 14:00] VITALS: BP 94/51
[2018-05-15] MEDS ORDERED: POTASSIUM CHLORIDE 10 MEQ SR TABLET PO ONE (14:45)
--- NOTE | 2018-05-15 15:08 | IPN ---
DATE OF SERVICE: 05/13/2018 SUBJECTIVE: Solitario is seen and examined this morning at the bedside. He continues to feel very weak, was having fevers throughout the night, tolerated gentle hemodialysis treatment yesterday with only 1 liter of fluid removed. Primary team has switched his antibiotics to Dificid. Patient complains of hemorrhoids. VITAL SIGNS: Temperature 97.5, maximum temperature (Tmax) in the past 24 hours 101.1, pulse 93, respiratory rate 14, blood pressure 99/52, saturating 96% on room air. Intake yesterday was 420. Dialysis yesterday removed 1 liter. Weight on the bed scale today is not recorded. There were two bowel movements recorded yesterday. GENERAL: Patient is seen lying in bed. Awake, alert, oriented, no acute distress. Tongue is moist. Neck veins are mildly elevated. Heart sounds are regular. There is an old, healed sternal scar. Lungs are clear to auscultation bilaterally. No crackle or rales. Abdomen is soft. The lower quadrants are tender to palpation. There are bowel sounds present diffusely. The extremities are negative for cyanosis or clubbing. There is no significant peripheral edema. NEUROLOGIC: He is at his baseline mentation, awake, alert, and oriented times three. LABS: White count 25,000, hemoglobin 9.1, platelets 283. Sodium 134, potassium 3.7, bicarbonate 26, magnesium 1.9. Blood cultures with no growth for 24 hours. INPATIENT MEDICATIONS: He is now receiving Dificid 200 mg by mouth twice a day. The vancomycin has been discontinued. Remainder of medications are unchanged from prior. PROBLEMS: 1. End-stage renal disease on hemodialysis on a Wednesday, , Wednesday schedule. Patient was dialyzed yesterday. I only removed 1 liter of fluid due to the colitis and diarrhea. Next dialysis will be on Wednesday. Hypotension does complicate his hemodialysis treatment. He is scheduled to receive midodrine on hemodialysis days, and he should have holding parameters with Entresto and carvedilol. 2. Clostridium difficile (C. diff) colitis. White count is up to 25 today. He continues to have fevers. He is weak and states he has been unable to get out of bed. Primary team has switched him over to Dificid. This is his second episode of C. diff colitis. His hemodialysis prescription will be gentle without aggressive ultrafiltration in view of the infectious process. 3. Hypotension. This has been a chronic issue. Blood pressures are at his usual baseline. He receives midodrine on hemodialysis days, Due to his systolic congestive heart failure, he does continue on low-dose Entresto and low-dose beta claudia, and those should have holding parameters. 4. Systolic congestive heart failure with ejection fraction of 35% and severe coronary artery disease. Volume status is acceptable and is principally managed via dialysis. He continues on his chronic congestive heart failure (CHF) medications, and he continues on midodrine due to hypotension.
--- NOTE | 2018-05-15 15:36 | IPNPDOC ---
Text Note Date of Service The patient was seen on 05/15/18. NOTE Continued to feel generalized weak, fatigued, with no energy. Denies any chest pain, pressure or discomfort. Denies any shortness of breath. diarrhea persisted Q3-4 hr, abd pain persisted PHYSICAL EXAMINATION: GENERAL: Patient alert, comfortable, frail, in no acute distress. HEENT: Normocephalic, atraumatic. Moist mucous membranes. Neck supple. PULMONARY: Bilateral clear, no wheezes, rales, or rhonchi. CARDIAC: Regular, S1, S2, 2/6 systolic murmur. ABDOMEN: Soft, tender LLQ, hyperactive bowel sounds. EXTREMITIES: No edema bilateral lower extremities. ASSESSMENT AND PLAN: This is a 62-year-old male patient with underlying medical history of end-stage renal disease on dialysis Wednesday, , Wednesday, coronary artery disease with coronary artery bypass graft (CABG), multiple stents, systolic congestive heart failure (CHF) with ejection fraction of 35% with severe global hypokineses, chronic obstructive pulmonary disease (COPD) on two liters oxygen at night and on steroids at home, dyslipidemia, diabetes, also with pacemaker, history of gout, recently treated for altered mental status, fevers, pneumonia and discharged home, presented with diarrhea, found to have Clostridium (C) difficile colitis. 1. Clostridium (C) difficile colitis. change vanco to Dificid. Supportive care. Monitor electrolytes. consider ct abd if not improved 2. End-stage renal disease. Nephrology consulted for dialysis. Continue home medications. 3. Troponin elevation with EKG changes compared to previous. Possible demand ischemia. Patient with severe underlying heart disease. Serial troponin. Telemetry monitoring. Echocardiogram. consulted Dr Gaines cardiology. awaiting rec. CK-MB index has been negative. Continue aspirin, Plavix, Coreg, midodrine, pravastatin, Entresto. Further management as per cardiology. 4. History of chronic obstructive pulmonary disease (COPD). Continue steroids. Oxygen supplementation. Currently not having any wheeze. 5. Systolic congestive heart failure (CHF) with ejection fraction of 35%. Patient is euvolemic. Fluid management as per nephrology and dialysis. c/w medication above 6. Dyslipidemia. Continue statin. 7. Diabetes. Basal bolus insulin. Followup finger sticks. 8. Diabetic neuropathy. Continue current medication, patient on Neurontin. 9. Gastroesophageal reflux disease (GERD). Continue proton pump inhibitor (PPI). 10. Restless legs. Continue Requip. dvt ppx heparin sq DISPOSITION: clinical improvement, PT VS,Fishbone, I+O VS, Fishbone, I+O Laboratory Tests 05/15/18 06:04 Red Blood Count 2.90 L, Mean Corpuscular Volume 93.1, Mean Corpuscular Hemoglobin 29.3, Mean Corpuscular Hemoglobin Concent 31.5 L, Red Cell Dist ribution Width 19.5 H, Calcium Level 8.2 L Vital Signs Date Time Temp Pulse Resp B/P (MAP) Pulse Ox O2 Delivery O2 Flow Rate FiO2 05/15/18 14:00 98.3 81 18 94/51 (65) 97 05/12/18 12:20 Room Air I&O- Last 24 Hours up to 6 AM 05/15/18 06:00 Intake Total 940 ml Output Total 300 ml Balance 640 ml FLORENTINO MANCILLA MD May 15, 2018 15:36
[2018-05-15] MEDS: rOPINIRole 1MG TAB PO SCH (20:42)
[2018-05-15] MEDS: CLOPIDOGREL 75 MG TAB PO SCH (20:44)
[2018-05-15] MEDS: FEBUXOSTAT 40 MG TABLET (ULORIC) PO SCH (20:45)
[2018-05-15] MEDS: GABAPENTIN 100 MG CAP PO SCH (20:45)
[2018-05-15] MEDS: PRAVASTATIN 20 MG TAB PO SCH (20:46)
[2018-05-15] MEDS: LEVEMIR (INSULIN DETEMIR) 1 UNITS/0.01ML SC SCH (20:47)
[2018-05-15 22:00] VITALS: BP 97/58
[2018-05-16 06:00] VITALS: BP 97/57
[2018-05-16 06:28] LABS: HEMATOCRIT 27.6 % (42.0-52.0); HEMOGLOBIN 8.7 g/dl (13.5-17.5); MEAN CORPUSCULAR HEMOGLOBIN 29.9 pg (27.0-33.0); MEAN CORPUSCULAR HGB CONC 31.5 g/dl (32.0-36.5); MEAN CORPUSCULAR VOLUME 94.8 fl (80.0-96.0); PLATELET COUNT, AUTOMATED 321 10^3/uL (150-450); RED BLOOD COUNT 2.91 10^6/uL (4.30-6.10); WHITE BLOOD COUNT 10.2 10^3/uL (4.0-10.0)
[2018-05-16 06:54] LABS: CALCIUM LEVEL 8.6 MG/DL (8.8-10.2); CREATININE FOR GFR 5.44 MG/DL (0.70-1.30); GLOMERULAR FILTRATION RATE 11.5 (>49); MAGNESIUM LEVEL 1.9 MG/DL (1.8-2.4)
[2018-05-16] MEDS ORDERED: POTASSIUM CHLORIDE 10 MEQ SR TABLET PO ONE (07:30)
--- NOTE | 2018-05-16 07:57 | CR ---
DATE OF CONSULTATION: 05/13/2018 CARDIOLOGY CONSULTATION: REFERRING PROVIDER: Dr. Samaniego PRIMARY LEAF BLENDER: Dr. Alvarado REASON FOR THE CONSULT: Abnormal serum troponin. HISTORY OF PRESENT ILLNESS: A 62-year-old unfortunate gentleman with an extensive past medical history was admitted on 05/11/2018 after he passed out at home. Patient stated that on that day, he started having watery diarrhea and was not eating and, upon standing up, he collapsed on the floor. He was brought to the hospital for further management and monitoring and, upon arrival, he was found to have elevated white blood cells (WBC) and he was positive for Clostridium (C) difficile colitis. He also was febrile with a temperature reported to be 101.9 degrees Fahrenheit. He was admitted for further management and monitoring and, while on the floor, his serum troponin was abnormal and cardiology consult was called. When I saw Mr. Clark on the floor, he was supine in bed in no acute distress at rest. He denies any chest pain, shortness of breath, palpitations. There is no orthopnea or paroxysmal nocturnal dyspnea (PND). He denies any pedal edema. He does have some minimal focal manifestation related to prior stroke involving the left side of the body. He denies any cough or hemoptysis or fever. He has a past medical history positive for coronary artery disease with myocardial infarction and multiple stent placement as well as coronary artery bypass graft (CABG) done twice, in 2004 as well as in 2014, paroxysmal atrial fibrillation in the setting of open heart surgery, chronic obstructive pulmonary disease (COPD) for which he has been on 2 liters per minute nasal cannula, congestive heart failure with left ventricular systolic dysfunction secondary to ischemic cardiomyopathy, hyperlipidemia, and diabetes mellitus, arthritis/gout, anemia, secondary hyperparathyroidism, and end-stage renal disease for which he has been on dialysis starting later last year in the month of February 2018, and he goes there on Tuesdays, , and Saturdays. He also has a history of hypertension, CVA with left-sided weakness, pancytopenia. PAST SURGICAL HISTORY: Is positive for coronary artery bypass graft done twice, in 2004 and 2014, cholecystectomy, left hip surgery, permanent pacemaker implantation, cataract extraction, and back surgery. MEDICATIONS: - fidaxomicin 200 mg twice a day - Tylenol 500 mg by mouth every 6 hours as needed for back pain - midodrine 5 mg by mouth on Tuesdays, , Saturdays - aspirin 81 mg by mouth daily - vitamin C 2000 units by mouth daily - prednisone 2.5 mg by mouth daily - thiamine 250 mg by mouth daily - Rocaltrol 0.25 mcg by mouth daily - heparin subcutaneous 5000 units twice a day - lactobacillus three times a day - regular insulin coverage - DuoNeb - Entresto 24/26 mg one tablet by mouth twice a day - pantoprazole 40 mg by mouth twice a day - pravastatin 80 mg by mouth nightly - ropinirole 1 mg by mouth nightly - Plavix 75 mg by mouth daily - Uloric acid 80 mg by mouth nightly - Neurontin 100 mg by mouth nightly - carvedilol 3.125 mg by mouth twice a day - nitroglycerin sublingual as needed for chest pain - ondansetron 4 mg by mouth every 8 hours for nausea - also on D50, glucose tablets, and glucagon for episode of hypoglycemia FAMILY HISTORY: Is strongly positive for coronary artery disease, including premature coronary artery disease, diabetes mellitus, hypertension, CVA. SOCIAL HISTORY: Patient lives with his family, and he does not smoke or abuse alcohol. ALLERGIES: He has allergies to HYDRALAZINE, CONTRAST MEDIA, and shellfish. ADVANCE DIRECTIVE: Patient is a FULL CODE. PHYSICAL EXAMINATION: Patient is alert and oriented, in no acute distress at rest, and very pleasant. His vital signs when I saw him revealed a blood pressure of 99/50 with a pulse of 93, respiration 14, and his maximum temperature was 100.2 degrees Fahrenheit with an oxygen saturation of 96% on 2 liters nasal cannula. Examination of head: Atraumatic. Neck is supple; no jugular venous distension (JVD) appreciated. The lungs did not reveal any wheezes or crackles. The heart examination revealed a regular heart sound without gallops. The point of maximal impulse (PMI) is displaced inferiorly and laterally. There is no rub. Abdomen is soft, and bowel sounds are active, hyperactive. Extremities revealed no pedal edema. Neurological examination revealed, in limited examination, minimal left-sided weakness. LABS: CBC on 05/13/2018 revealed a WBC of 25.3, hemoglobin 9.1, hematocrit 28.4, and platelets 283,000. BMP revealed a sodium of 134, potassium 3.7, chloride 99, CO2 of 26, BUN 29, creatinine 3.69, GFR 18.0, fasting glucose 62, and calcium 9.0. Serum magnesium of 1.9. Serum troponin has been 0.44, 0.55, 0.62, 0.59, and 0.46. PT is 14.8 with an INR of 1.14 and a PTT of 42.2. EKG on admission was reviewed and revealed normal sinus rhythm at 99 beats per minute, possible prior inferior wall infarct, mild IVCD, poor R wave progression, and nonspecific ST-T abnormalities. No remarkable changes from prior tracing. Abdomen and pelvic CT done on admission, 05/11/2018, revealed no evidence of bowel obstruction and no evidence of free fluid. IMPRESSION: Abnormal serum troponin in this 62-year-old male with extensive history of coronary artery disease (CAD) including ischemic cardiomyopathy. Patient had prior multiple stents, a total of 29 as stated. He also has had CABG done twice in the past, in 2004 and in 2014. He is now being treated for C. difficile colitis. His chart as well as his labs were reviewed, and the abnormal serum troponin does not seem to be related to ischemia or acute myocardial infarction (AMI) but most likely related to his episode of syncope in the setting of chronic kidney disease. This was discussed with the patient as well as family member who is in the room. His medications were reviewed, and I will continue the same for now. If he continues to be symptomatic with dizziness and particularly if associated with his blood pressure, could consider decreasing the Entresto to once a day instead of twice a day. Once again, patient appears to be stable from a cardiac point of view and we shall continue his current cardiac medications and his treatment for C. difficile colitis. Upon discharge, he will continue to follow with his primary irrigation specialist, Dr. Alvarado. JERMAIN
[2018-05-16] MEDS: HumaLOG INSULIN (NovoLOG) PER UNIT SC SCH ×3 (08:32→18:15)
[2018-05-16] MEDS: HEPARIN SOD (PORCINE) 5000 UNITS/ML VIAL SQ SCH ×2 (08:32→21:24)
[2018-05-16] MEDS: CALCITRIOL 0.25 MCG CAP (S0169) PO SCH (08:33)
[2018-05-16] MEDS: LACTOBACILLUS ACIDOPHILUS CAP (BACID) PO SCH ×3 (08:33→21:15)
[2018-05-16] MEDS: ENTRESTO 24-26MG TABLET (SACUBITRIL/VALSARTAN) PO SCH ×2 (08:35→20:18)
[2018-05-16] MEDS: CARVedilol 3.125 MG TAB PO SCH ×2 (08:35→21:16)
[2018-05-16] MEDS: THIAMINE 100 MG TAB PO SCH (08:36)
[2018-05-16] MEDS: PANTOPRAZOLE 40MG TAB (PROTONIX) PO SCH ×2 (08:36→21:15)
[2018-05-16] MEDS: ASPIRIN 81 MG ENTERIC TAB PO SCH (08:37)
[2018-05-16] MEDS: FIDAXOMICIN 200 MG TAB (DIFICID) PO SCH ×2 (08:37→21:15)
[2018-05-16] MEDS: predniSONE 2.5 MG TAB PO SCH (08:37)
[2018-05-16] MEDS: VITAMIN D 1,000 INTERNATIONAL UNITS TABLET PO SCH (08:37)
[2018-05-16] MEDS: ACETAMINOPHEN 500 MG TAB PO PRN (12:32)
[2018-05-16 14:00] VITALS: BP 91/53
--- NOTE | 2018-05-16 17:10 | IPNPDOC ---
Text Note Date of Service The patient was seen on 05/16/18. NOTE Continued to feel generalized weak, fatigued, with no energy. Denies any chest pain, pressure or discomfort. Denies any shortness of breath. diarrhea improved, abd pain persisted PHYSICAL EXAMINATION: GENERAL: Patient alert, comfortable, frail, in no acute distress. HEENT: Normocephalic, atraumatic. Moist mucous membranes. Neck supple. PULMONARY: Bilateral clear, no wheezes, rales, or rhonchi. CARDIAC: Regular, S1, S2, 2/6 systolic murmur. ABDOMEN: Soft, tender LLQ, hyperactive bowel sounds. EXTREMITIES: No edema bilateral lower extremities. ASSESSMENT AND PLAN: This is a 62-year-old male patient with underlying medical history of end-stage renal disease on dialysis Wednesday, , Wednesday, coronary artery disease with coronary artery bypass graft (CABG), multiple stents, systolic congestive heart failure (CHF) with ejection fraction of 35% with severe global hypokineses, chronic obstructive pulmonary disease (COPD) on two liters oxygen at night and on steroids at home, dyslipidemia, diabetes, also with pacemaker, history of gout, recently treated for altered mental status, fevers, pneumonia and discharged home, presented with diarrhea, found to have Clostridium (C) difficile colitis. 1. Clostridium (C) difficile colitis. change vanco to Dificid. Supportive care. Monitor electrolytes. repeat ct abd give abd pain not improved 2. End-stage renal disease. Nephrology consulted for dialysis. Continue home medications. 3. Troponin elevation with EKG changes compared to previous. Possible demand ischemia. Patient with severe underlying heart disease. Serial troponin. Telemetry monitoring. Echocardiogram. consulted Dr Gaines cardiology. CK-MB index has been negative. Continue aspirin, Plavix, Coreg, midodrine, pravastatin, Entresto. Further management as per cardiology. 4. History of chronic obstructive pulmonary disease (COPD). Continue steroids. Oxygen supplementation. Currently not having any wheeze. 5. Systolic congestive heart failure (CHF) with ejection fraction of 35%. Patient is euvolemic. Fluid management as per nephrology and dialysis. c/w medication above 6. Dyslipidemia. Continue statin. 7. Diabetes. Basal bolus insulin. Followup finger sticks. 8. Diabetic neuropathy. Continue current medication, patient on Neurontin. 9. Gastroesophageal reflux disease (GERD). Continue proton pump inhibitor (PPI). 10. Restless legs. Continue Requip. dvt ppx heparin sq DISPOSITION: clinical improvement, PT VS,Fishbone, I+O VS, Fishbone, I+O Laboratory Tests 05/16/18 06:10 Red Blood Count 2.91 L, Mean Corpuscular Volume 94.8, Mean Corpuscular Hemoglobin 29.9, Mean Corpuscular Hemoglobin Concent 31.5 L, Red Cell Distribution Width 19.2 H, Calcium Level 8.6 L Vital Signs Date Time Temp Pulse Resp B/P (MAP) Pulse Ox O2 Delivery O2 Flow Rate FiO2 05/16/18 14:00 96.4 76 18 91/53 (66) 98 2.0 05/12/18 12:20 Room Air I&O- Last 24 Hours up to 6 AM 05/16/18 06:00 Intake Total 1010 ml Output Total 0 ml Balance 1010 ml FLORENTINO MANCILLA MD May 16, 2018 17:10
[2018-05-16] MEDS: LEVEMIR (INSULIN DETEMIR) 1 UNITS/0.01ML SC SCH (21:14)
[2018-05-16] MEDS: PRAVASTATIN 20 MG TAB PO SCH (21:16)
[2018-05-16] MEDS: rOPINIRole 1MG TAB PO SCH (21:16)
[2018-05-16] MEDS: CLOPIDOGREL 75 MG TAB PO SCH (21:16)
[2018-05-16] MEDS: GABAPENTIN 100 MG CAP PO SCH (21:17)
[2018-05-16] MEDS: FEBUXOSTAT 40 MG TABLET (ULORIC) PO SCH (21:17)
[2018-05-16 22:00] VITALS: BP 106/60
[2018-05-17] MEDS: ENTRESTO 24-26MG TABLET (SACUBITRIL/VALSARTAN) PO SCH ×2 (05:42→20:34)
[2018-05-17] MEDS: HEPARIN SOD (PORCINE) 5000 UNITS/ML VIAL SQ SCH ×2 (05:43→21:34)
[2018-05-17] MEDS: CALCITRIOL 0.25 MCG CAP (S0169) PO SCH (05:43)
[2018-05-17] MEDS: FIDAXOMICIN 200 MG TAB (DIFICID) PO SCH ×2 (05:43→21:35)
[2018-05-17] MEDS: CARVedilol 3.125 MG TAB PO SCH ×2 (05:43→21:36)
[2018-05-17] MEDS: LACTOBACILLUS ACIDOPHILUS CAP (BACID) PO SCH ×3 (05:44→21:36)
[2018-05-17] MEDS: VITAMIN D 1,000 INTERNATIONAL UNITS TABLET PO SCH (05:45)
[2018-05-17] MEDS: ASPIRIN 81 MG ENTERIC TAB PO SCH (05:45)
[2018-05-17] MEDS: THIAMINE 100 MG TAB PO SCH (05:45)
[2018-05-17] MEDS: PANTOPRAZOLE 40MG TAB (PROTONIX) PO SCH ×2 (05:45→21:35)
[2018-05-17] MEDS: predniSONE 2.5 MG TAB PO SCH (05:51)
[2018-05-17 06:00] VITALS: BP 102/56
[2018-05-17 06:26] LABS: HEMATOCRIT 28.6 % (42.0-52.0); HEMOGLOBIN 8.9 g/dl (13.5-17.5); MEAN CORPUSCULAR HEMOGLOBIN 29.8 pg (27.0-33.0); MEAN CORPUSCULAR HGB CONC 31.1 g/dl (32.0-36.5); MEAN CORPUSCULAR VOLUME 95.7 fl (80.0-96.0); PLATELET COUNT, AUTOMATED 358 10^3/uL (150-450); RED BLOOD COUNT 2.99 10^6/uL (4.30-6.10); WHITE BLOOD COUNT 10.5 10^3/uL (4.0-10.0)
--- NOTE | 2018-05-17 06:35 | REP ---
Clinical: Acute abdominal pain. Comparison: 05/11/2018. Technique: Axial contrast enhanced images from the lung bases to the pubic symphysis with coronal and sagittal re-formations using 100 ml and 370 intravenous contrast material. Automated dose lowering techniques and adjustment according to patient's size utilized during acquisition. Findings: Mucosal thickening and pericolonic inflammatory changes involve the mid transverse colon through rectosigmoid colon consistent with an acute infectious/inflammatory colitis. No bowel obstruction. No free air to suggest perforation. No drainable collection/abscess or significant ascites. The remainder of the small and large bowel is grossly unremarkable including normal terminal ileum and appendix. Liver, spleen, pancreas, bilateral adrenal glands and kidneys are normal / stable. Age-related atrophic changes to the bilateral kidneys again noted. Evidence of prior cholecystectomy. Pelvis demonstrates normal bladder and age appropriate prostate/seminal vesicles. Abdominal aorta and vasculature without aneurysm or dissection. Musculoskeletal structures demonstrate degenerative changes along with evidence for prior lumbar surgery. Lung bases demonstrate minimal left basilar atelectasis. Impression: 1. Acute infectious/inflammatory colitis involving the transverse through rectosigmoid colon. No bowel obstruction, perforation, drainable collection/abscess or ascites. Electronically Signed by Alfred Jordan MD 05/17/2018 06:27 A
[2018-05-17 06:48] LABS: CALCIUM LEVEL 8.4 MG/DL (8.8-10.2); CREATININE FOR GFR 6.17 MG/DL (0.70-1.30); GLOMERULAR FILTRATION RATE 9.9 (>49); MAGNESIUM LEVEL 1.7 MG/DL (1.8-2.4); POTASSIUM SERUM 3.3 MEQ/L (3.5-5.1)
[2018-05-17] MEDS ORDERED: MAG SULF 1GM/100ML (MAG RUN) 1 GM in APPROPRIATE DILUENT 1 EA IV ONE (08:00)
[2018-05-17] MEDS ORDERED: POTASSIUM CHLORIDE 10 MEQ SR TABLET PO ONE (08:00)
[2018-05-17] MEDS: MIDODRINE 5 MG TAB PO SCH ×2 (08:09→18:09)
[2018-05-17] MEDS: HumaLOG INSULIN (NovoLOG) PER UNIT SC SCH ×3 (08:10→18:10)
[2018-05-17] MEDS ORDERED: HEPARIN 1,000 UNITS/ML 10ML VIAL (FOR RADIOLOGY& DIALYSIS ONLY) IV ONE (10:45)
[2018-05-17] MEDS ORDERED: HEPARIN 1,000 UNITS/ML 10ML VIAL (FOR RADIOLOGY& DIALYSIS ONLY) XX ONE (10:45)
--- NOTE | 2018-05-17 10:59 | IPN ---
DATE: 05/15/2018 Mr. Clark is seen this morning on his bedside. His significant other is present in the room. The patient reports that his diarrhea persists but he was able to walk to the bathroom today. He denies any dyspnea, chest pain, fever or chills. He is currently being treated for Clostridium (C.) difficile colitis. The patient was dialyzed yesterday, which he tolerated very well yet no fluid was removed. The patient does have a complaint of diminished hearing in his left ear. He also has complained of sinus pain in the left cheek. PHYSICAL EXAMINATION: Temperature 98.3 degrees Fahrenheit, heart rate 80 per minute and respiratory rate 18 per minute. Blood pressure 94/50 mmHg and oxygen saturation 97% on room air. Head is atraumatic. Right eye is blind. The patient has no jugular venous distention (JVD) or thyroid enlargement. There is no oral thrush or ulcers. Heart sounds are regular and lungs sound clear to auscultation. Abdomen is soft and abdominal pain seems improved and tenderness has also improved significantly over the last 24 hours. Bowel sounds are present. Extremities have no cyanosis or clubbing. Neurologically, he is awake and at his baseline mentation without a focal deficit. Today's labs show WBC count 13.2, hemoglobin 8.5 and hematocrit 27.0. Platelets 303. Sodium 137, potassium 3.3, CO2 29, BUN 22 and creatinine 3.9. PROBLEMS: 1. End-stage renal disease. The patient was dialyzed yesterday and next dialysis will be scheduled for May 17. His volume status is very well compensated. 2. Hypokalemia. This is related to diarrhea, poor oral intake and dialysis treatment. He was dialyzed yesterday with 4.0 mEq potassium bath; however, it did not help with his hypokalemia. We will give him a dose of potassium chloride 40 mEq today and recheck his electrolytes tomorrow morning. 3. Left cheek pain and decreased hearing. I would suggest an ENT evaluation. The patient is not a suitable candidate for empiric antibiotic therapy due to ongoing colitis with C diff. We will try to avoid antibiotic as much as possible. 4. Chronic systolic congestive heart failure. His volume status is reasonably well-compensated and we will continue to monitor closely and manage it with dialysis. 5. Anemia. His anemia is worse since admission; however, he was also dehydrated at that time. We will continue with Aranesp 200 mcg once a week during dialysis and monitor his CBC closely. There is no emergent indication for a transfusion at this point. 6. Diarrhea and abdominal tenderness. The patient has Clostridium (C.) difficile colitis and currently being treated with Dificid. His leukocytosis is improving and if his abdominal tenderness does not improve then we will consider to repeat a CT scan.
[2018-05-17 14:00] VITALS: BP 101/62
--- NOTE | 2018-05-17 14:49 | IPNPDOC ---
Text Note Date of Service The patient was seen on 05/17/18. NOTE Subjective: Patient states his diabetes improving. No abdominal pain. No chest pain or shortness of breath. Tolerating dialysis. Objective: Vitals: (see below) General: No acute distress, laying comfortably in bed. HEENT: Moist mucous membranes. Neck: No JVD or lymphadenopathy. Dialysis catheter intact. No bleeding noted. Cardiac: RRR, No murmurs Pulm: Clear to auscultation b/l. No wheezing, rhonchi Abd: NT/ND + BS Ext: Trace edema bilateral lower extremity. No cyanosis. Labs (see below) Assessment/Plan Active/Acute Issues: 1. C. difficile colitis. Status post vancomycin. On Dificid and improving. We'll continue to monitor. 2. Elevated troponin with minimal EKG changes. Evaluated by , appreciate input. We'll avoid episodes of hypotension. History of CAD status post CABG as well as multiple stents. Continue home meds. 3. History of end-stage renal disease on hemodialysis. Appreciate nephrology input. 4. History of systolic heart failure EF of 35%. Euvolemic. Fluid management as per nephrology on dialysis. 5. Diabetes mellitus - Levemir dose increased. cont sliding scale insulin. 6. Hyperlipidemia on statin 7. History of diabetic neuropathy on Neurontin 8. History of GERD on PPI 9. History of restless leg syndrome continue meds. DVT prophy: Heparin subcutaneous PT ordered. VS,Fishbone, I+O VS, Fishbone, I+O Laboratory Tests 05/17/18 06:13 Red Blood Count 2.99 L, Mean Corpuscular Volume 95.7, Mean Corpuscular Hemoglobin 29.8, Mean Corpuscular Hemoglobin Concent 31.1 L, Red Cell Distribution Width 19.5 H, Calcium Level 8.4 L Vital Signs Date Time Temp Pulse Resp B/P (MAP) Pulse Ox O2 Delivery O2 Flow Rate FiO2 05/17/18 06:00 96.8 77 16 102/56 (71) 100 05/16/18 14:00 2.0 05/12/18 12:20 Room Air I&O- Last 24 Hours up to 6 AM 05/17/18 06:00 Intake Total 1890 ml Output Total 275 ml Balance 1615 ml CRISPIN PIERCE MD May 17, 2018 14:49
--- NOTE | 2018-05-17 15:11 | IPN ---
DATE: 05/16/2018 Mr. Clark is seen this morning on his bedside. He is sitting in his bed eating breakfast. He feels that his diarrhea is improving but he still has left lower quadrant abdominal pain and tenderness. He denies any dyspnea, chest pain, nausea, vomiting, fever or chills. He is being treated for Clostridium (C) difficile colitis. PHYSICAL EXAMINATION: Temperature 97.8 degrees Fahrenheit, heart rate 80 per minute and respiratory rate 20 per minute. Blood pressure 99/57 mmHg and oxygen saturation 95% on two liters of oxygen. His head is atraumatic. Right eye is blind. There are no oral thrush or ulcers. Neck is supple and jugular venous distention (JVD) is not elevated. Thyroid is not enlarged. Heart sounds are regular. Lungs sound clear to auscultation. Abdomen is soft with mild tenderness in left lower quadrant which is significantly improved compared with three days ago. Bowel sounds are present. Extremities have no cyanosis or clubbing. Neurologically, he is awake, alert and at his baseline mentation. LABORATORY DATA: Today's laboratories show WBC count 10.2, hemoglobin 8.7 and hematocrit 27.6. Platelets 321. Sodium 136, potassium 3.0, CO2 25, BUN 38, and creatinine 5.44. PROBLEMS: 1. Clostridium (C) difficile colitis. The patient remains on Dificid with improving diarrhea. His abdominal pain and tenderness persist in the left lower quadrant. He is going to have a repeat CT scan of abdomen and pelvis done this afternoon. We will plan to dialyze him tomorrow morning. 2. Hypokalemia. This is related to poor oral intake and ongoing diarrhea. He was given one dose of potassium chloride yesterday and we will give him another dose of potassium chloride 40 mEq today. We plan to dialyze him with high potassium bath tomorrow. 3. End-stage renal disease. The patient was last dialyzed on Wednesday and his next dialysis is being scheduled for tomorrow morning. 4. Anemia. No significant microsoft exchange architect last couple of days. At this point, he continues with Aranesp 200 mcg once a week and complete blood count (CBC) will be checked again tomorrow morning. 5. Coronary artery disease and congestive heart failure. At present, he has no cardiac symptoms and volume status is very well-compensated. We will reevaluate him tomorrow morning for dialysis and fluid removal.
--- NOTE | 2018-05-17 19:49 | IPN ---
DATE: 05/17/2018 Mr. Clark is seen this morning during hemodialysis on his bedside. He is feeling slightly better and his diarrhea has improved. He underwent a repeat CT scan of abdomen and pelvis yesterday which did show persistent colitis. His symptoms have improved and he is feeling better. He denies any nausea or vomiting. The patient reports that he was able to get up and walk in the hallway yesterday. PHYSICAL EXAMINATION: Temperature 96.8 degrees Fahrenheit, heart rate 76 per minute and respiratory rate 18 per minute. Blood pressure 102/56 mmHg and oxygen saturation 100% on room air. His head is atraumatic. Right eye is blind. Neck is supple and jugular venous distention (JVD) is not elevated. Heart sounds are regular and lungs sound clear to auscultation. Abdomen soft and mild tenderness in left lower quadrant is present. Bowel sounds are normal. Extremities have no cyanosis or clubbing. Neurologically he is awake and at his baseline mentation. Today's labs show WBC count 10.5, hemoglobin 8.9 and hematocrit 28.6. Sodium 137, potassium 3.3, chloride 102, CO2 24, BUN 47 and creatinine 6.17. PROBLEMS: 1. End-stage renal disease. The patient is being dialyzed today and he is tolerating dialysis treatment very well. 2. Clostridium (C) difficile colitis with diarrhea. Symptoms are improving and the patient remains on Dificid. At this point we will continue with current treatment. 3. Hypokalemia. This is related to poor oral intake and ongoing diarrhea. The patient is being dialyzed with 4.0 mEq potassium bath and it will help to correct his hypokalemia. 4. Congestive heart failure. His volume status remains very well compensated due to poor oral intake and diarrhea. We are going to try to remove about 1 liter of fluid today as tolerated. 5. Generalized weakness. The patient is feeling better now and has started to ambulate which is encouraging. 6. Coronary artery disease. The patient remains asymptomatic at present without any chest pain or shortness of breath. We will continue with his chronic treatment.
[2018-05-17 20:00] VITALS: BP 107/56
[2018-05-17] MEDS ORDERED: LEVEMIR (INSULIN DETEMIR) 1 UNITS/0.01ML SC SCH (21:00)
[2018-05-17] MEDS: GABAPENTIN 100 MG CAP PO SCH (21:34)
[2018-05-17] MEDS: CLOPIDOGREL 75 MG TAB PO SCH (21:35)
[2018-05-17] MEDS: rOPINIRole 1MG TAB PO SCH (21:36)
[2018-05-17] MEDS: FEBUXOSTAT 40 MG TABLET (ULORIC) PO SCH (21:36)
[2018-05-17] MEDS: PRAVASTATIN 20 MG TAB PO SCH (21:37)
[2018-05-18 06:00] VITALS: BP 103/58
[2018-05-18 06:23] LABS: HEMATOCRIT 28.3 % (42.0-52.0); HEMOGLOBIN 8.7 g/dl (13.5-17.5); MEAN CORPUSCULAR HEMOGLOBIN 29.7 pg (27.0-33.0); MEAN CORPUSCULAR HGB CONC 30.7 g/dl (32.0-36.5); MEAN CORPUSCULAR VOLUME 96.6 fl (80.0-96.0); PLATELET COUNT, AUTOMATED 429 10^3/uL (150-450); RED BLOOD COUNT 2.93 10^6/uL (4.30-6.10); WHITE BLOOD COUNT 12.7 10^3/uL (4.0-10.0)
[2018-05-18 06:42] LABS: CALCIUM LEVEL 8.5 MG/DL (8.8-10.2); CREATININE FOR GFR 4.15 MG/DL (0.70-1.30); GLOMERULAR FILTRATION RATE 15.7 (>49); MAGNESIUM LEVEL 1.6 MG/DL (1.8-2.4); POTASSIUM SERUM 3.3 MEQ/L (3.5-5.1)
[2018-05-18] MEDS ORDERED: MAG SULF 1GM/100ML (MAG RUN) 1 GM in APPROPRIATE DILUENT 1 EA IV ONE (07:30)
[2018-05-18] MEDS ORDERED: POTASSIUM CHLORIDE 10 MEQ SR TABLET PO ONE ×2 (07:30→12:00)
[2018-05-18] MEDS: HumaLOG INSULIN (NovoLOG) PER UNIT SC SCH ×3 (07:30→17:55)
[2018-05-18] MEDS: PANTOPRAZOLE 40MG TAB (PROTONIX) PO SCH ×2 (08:21→20:52)
[2018-05-18] MEDS: ASPIRIN 81 MG ENTERIC TAB PO SCH (08:21)
[2018-05-18] MEDS: FIDAXOMICIN 200 MG TAB (DIFICID) PO SCH ×2 (08:21→20:52)
[2018-05-18] MEDS: VITAMIN D 1,000 INTERNATIONAL UNITS TABLET PO SCH (08:22)
[2018-05-18] MEDS: LACTOBACILLUS ACIDOPHILUS CAP (BACID) PO SCH ×3 (08:22→20:52)
[2018-05-18] MEDS: CALCITRIOL 0.25 MCG CAP (S0169) PO SCH (08:22)
[2018-05-18] MEDS: predniSONE 2.5 MG TAB PO SCH (08:22)
[2018-05-18] MEDS: THIAMINE 100 MG TAB PO SCH (08:25)
[2018-05-18] MEDS: ENTRESTO 24-26MG TABLET (SACUBITRIL/VALSARTAN) PO SCH ×2 (08:27→20:52)
[2018-05-18] MEDS: HEPARIN SOD (PORCINE) 5000 UNITS/ML VIAL SQ SCH ×2 (08:27→20:51)
[2018-05-18] MEDS: CARVedilol 3.125 MG TAB PO SCH ×2 (08:27→20:51)
--- NOTE | 2018-05-18 12:47 | IPNPDOC ---
Text Note Date of Service The patient was seen on 05/18/18. NOTE Subjective: Patient states his diarrhea continues to improve. Had 5 BM yesterday and stools are more formed. No abdominal pain. No chest pain or shortness of breath. Objective: Vitals: (see below) General: No acute distress, laying comfortably in bed. HEENT: Moist mucous membranes. Neck: No JVD or lymphadenopathy. Dialysis catheter intact. No bleeding noted. Cardiac: RRR, No murmurs Pulm: Clear to auscultation b/l. No wheezing, rhonchi Abd: NT/ND + BS Ext: Trace edema bilateral lower extremity. No cyanosis. Labs (see below) Assessment/Plan Active/Acute Issues: 1. C. difficile colitis. Status post vancomycin. On Dificid and improving. We'll continue to monitor. 2. Elevated troponin with minimal EKG changes. Evaluated by , appreciate input. We'll avoid episodes of hypotension. History of CAD status post CABG as well as multiple stents. Continue home meds. 3. History of end-stage renal disease on hemodialysis. Appreciate nephrology input. 4. History of systolic heart failure EF of 35%. Euvolemic. Fluid management as per nephrology on dialysis. 5. Diabetes mellitus - Levemir. cont sliding scale insulin. 6. Hyperlipidemia on statin 7. History of diabetic neuropathy on Neurontin 8. History of GERD on PPI 9. History of restless leg syndrome continue meds. DVT prophy: Heparin subcutaneous PT ordered, pt continues to participate and improving daily. VS,Fishbone, I+O VS, Fishbone, I+O Laboratory Tests 05/18/18 06:08 Red Blood Count 2.93 L, Mean Corpuscular Volume 96.6 H, Mean Corpuscular Hemoglobin 29.7, Mean Corpuscular Hemoglobin Concent 30.7 L, Red Cell Distribution Width 19.9 H, Calcium Level 8.5 L Vital Signs Date Time Temp Pulse Resp B/P (MAP) Pulse Ox O2 Delivery O2 Flow Rate FiO2 05/18/18 08:27 84 103/57 05/18/18 06:00 97.8 17 92 05/16/18 14:00 2.0 05/12/18 12:20 Room Air I&O- Last 24 Hours up to 6 AM 2/20/19 06:00 Intake Total 1270 ml Output Total 1025 ml Balance 245 ml CRISPIN PIERCE MD May 18, 2018 12:47
[2018-05-18 14:00] VITALS: BP 103/57
--- NOTE | 2018-05-18 15:48 | IPN ---
DATE: 05/18/2018 Mr. Clark is seen this morning on his bedside. He is feeling much better and reports that his abdominal pain and tenderness has improved. His diarrhea has also improved, and he is able to get up and walk in the hallway now. He denies any dyspnea or chest pain. He has no fever or chills. He was dialyzed yesterday, which he tolerated well. PHYSICAL EXAMINATION: Temperature 97.8 degrees Fahrenheit, heart rate 80 per minute, respiratory rate 18 per minute, blood pressure 103/58 mm of mercury, and oxygen saturation 92-98% on room air. His head is atraumatic. His right eye is blind. Neck is supple and without jugular venous distention (JVD) or thyroid enlargement. Heart sounds are regular, and lungs clear to auscultation. Abdomen is soft with minimal left lower quadrant tenderness, and bowel sounds are normal. Extremities have no cyanosis or clubbing. Neurologically he is awake, alert, and oriented times three. Today's labs show WBC count 12.7, hemoglobin 8.7, hematocrit 28.3, platelets 429. Sodium 140, potassium 3.3, CO2 of 28, BUN 28, and creatinine 4.15. His glucose was 49 this morning, and a repeat one fingerstick was 51. He does not seem to have any symptoms at present. PROBLEMS: 1. End-stage renal disease. The patient was dialyzed yesterday, and his next dialysis will be scheduled for tomorrow. 2. Hypokalemia. This related to diarrhea and poor oral intake. He is being encouraged to eat a regular diet. We have not put him on any potassium restrictions. I am going to give him a dose of potassium chloride 40 mEq today. We have previously given him oral potassium supplement without much improvement in his serum potassium level. He was also dialyzed with 4.0 mEq potassium bath yesterday, which, again, did not help much. Electrolytes will be checked again tomorrow morning. 3. Congestive heart failure. Volume status is very well compensated, and we will continue to manage it with dialysis. 4. Hypotension. He does have chronic hypotension and remains on midodrine 5 mg three times a day on dialysis days. We will continue with the same. 5. Clostridium (C) difficile colitis and diarrhea. His symptoms have improved, and abdominal tenderness has also improved. He remains on Dificid at this point, and no changes are being made today. 6. Coronary artery disease. The patient is completely asymptomatic and will remain on his chronic therapy.
[2018-05-18] MEDS: LEVEMIR (INSULIN DETEMIR) 1 UNITS/0.01ML SC SCH (20:51)
[2018-05-18] MEDS: CLOPIDOGREL 75 MG TAB PO SCH (20:51)
[2018-05-18] MEDS: PRAVASTATIN 20 MG TAB PO SCH (20:52)
[2018-05-18] MEDS: rOPINIRole 1MG TAB PO SCH (20:52)
[2018-05-18] MEDS: GABAPENTIN 100 MG CAP PO SCH (20:52)
[2018-05-18] MEDS: FEBUXOSTAT 40 MG TABLET (ULORIC) PO SCH (20:52)
[2018-05-18 22:00] VITALS: BP 110/65
[2018-05-19] MEDS: CALCITRIOL 0.25 MCG CAP (S0169) PO SCH (05:49)
[2018-05-19] MEDS: CARVedilol 3.125 MG TAB PO SCH ×2 (05:50→21:15)
[2018-05-19] MEDS: LACTOBACILLUS ACIDOPHILUS CAP (BACID) PO SCH ×3 (05:50→21:14)
[2018-05-19] MEDS: PANTOPRAZOLE 40MG TAB (PROTONIX) PO SCH ×2 (05:50→21:14)
[2018-05-19] MEDS: ASPIRIN 81 MG ENTERIC TAB PO SCH (05:50)
[2018-05-19] MEDS: predniSONE 2.5 MG TAB PO SCH (05:50)
[2018-05-19] MEDS: ENTRESTO 24-26MG TABLET (SACUBITRIL/VALSARTAN) PO SCH ×2 (05:51→21:14)
[2018-05-19] MEDS: VITAMIN D 1,000 INTERNATIONAL UNITS TABLET PO SCH (05:51)
[2018-05-19] MEDS: FIDAXOMICIN 200 MG TAB (DIFICID) PO SCH ×2 (05:51→21:15)
[2018-05-19] MEDS: THIAMINE 100 MG TAB PO SCH (05:51)
[2018-05-19] MEDS: HEPARIN SOD (PORCINE) 5000 UNITS/ML VIAL SQ SCH ×2 (05:53→21:13)
[2018-05-19 06:00] VITALS: BP 112/65
[2018-05-19 06:54] LABS: MAGNESIUM LEVEL 1.8 MG/DL (1.8-2.4)
[2018-05-19] MEDS: HumaLOG INSULIN (NovoLOG) PER UNIT SC SCH ×3 (08:13→18:02)
[2018-05-19 09:02] LABS: BASO # 0.1 10^3/uL (0.0-0.2); BASO % 0.7 % (0.0-1.0); HEMATOCRIT 27.7 % (42.0-52.0); HEMOGLOBIN 8.4 g/dl (13.5-17.5); LYMPH # 1.2 10^3/uL (1.5-4.5); MEAN CORPUSCULAR HEMOGLOBIN 29.4 pg (27.0-33.0); MEAN CORPUSCULAR HGB CONC 30.3 g/dl (32.0-36.5); MEAN CORPUSCULAR VOLUME 96.9 fl (80.0-96.0); MONO # 0.9 10^3/uL (0.0-0.8); MONO % 9.3 % (0.0-5.0); NEUTROPHILS # 7.1 10^3/uL (1.8-7.7); NEUTROPHILS % 74.5 % (36.0-66.0); PLATELET COUNT, AUTOMATED 392 10^3/uL (150-450); RED BLOOD COUNT 2.86 10^6/uL (4.30-6.10); WHITE BLOOD COUNT 9.6 10^3/uL (4.0-10.0)
[2018-05-19 09:09] LABS: BILIRUBIN,TOTAL 0.2 MG/DL (0.2-1.0); CALCIUM LEVEL 8.3 MG/DL (8.8-10.2); CREATININE FOR GFR 5.14 MG/DL (0.70-1.30); GLOMERULAR FILTRATION RATE 12.3 (>49); PHOSPHORUS LEVEL 3.1 MG/DL (2.5-4.9); POTASSIUM SERUM 4.1 MEQ/L (3.5-5.1); TOTAL PROTEIN 6.7 GM/DL (6.4-8.2)
[2018-05-19] MEDS: MIDODRINE 5 MG TAB PO SCH ×2 (12:26→18:02)
--- NOTE | 2018-05-19 13:34 | IPNPDOC ---
Text Note Date of Service The patient was seen on 05/19/18. NOTE Subjective: Stool is as formed as yesterday. Had 7 BM today. No abdominal p ain. No chest pain or shortness of breath. Objective: Vitals: (see below) General: No acute distress, laying comfortably in bed. HEENT: Moist mucous membranes. Neck: No JVD or lymphadenopathy. Dialysis catheter intact. No bleeding noted. Cardiac: RRR, No murmurs Pulm: Clear to auscultation b/l. No wheezing, rhonchi Abd: NT/ND + BS Ext: Trace edema bilateral lower extremity. No cyanosis. Labs (see below) Assessment/Plan Active/Acute Issues: 1. C. difficile colitis. Status post vancomycin. On Dificid and improving. Stools are becoming more formed, although had 7 today. We'll continue to m onitor. 2. Elevated troponin with minimal EKG changes. Evaluated by , appreciate input. We'll avoid episodes of hypotension. History of CAD status post CABG as well as multiple stents. Continue home meds. 3. History of end-stage renal disease on hemodialysis. Appreciate nephrology input. 4. History of systolic heart failure EF of 35%. Euvolemic. Fluid management as per nephrology on dialysis. 5. Diabetes mellitus - Levemir. cont sliding scale insulin. 6. Hyperlipidemia on statin 7. History of diabetic neuropathy on Neurontin 8. History of GERD on PPI 9. History of restless leg syndrome continue meds. DVT prophy: Heparin subcutaneous PT on board. Plan to d/c in the next 24-48hrs if continues to improve. VS,Fishbone, I+O VS, Fishbone, I+O Laboratory Tests 05/19/18 06:21 Red Blood Count 2.86 L, Mean Corpuscular Volume 96.9 H, Mean Corpuscular Hemoglobin 29.4, Mean Corpuscular Hemoglobin Concent 30.3 L, Red Cell Distribution Width 20.6 H, Neutrophils (%) (Auto) 74.5 H, Lymphocytes (%) (Auto) 13.0 L, Monocytes (%) (Auto) 9.3 H, Eosinophils (%) (Auto) 0.0, Basophils (%) (Auto) 0.7, Neutrophils # (Auto) 7.1, Lymphocytes # (Auto) 1.2 L, Monocytes # (Auto) 0.9 H, Eosinophils # (Auto) 0.0, Basophils # (Auto) 0.1 05/19/18 06:23 Calcium Level 8.3 L, Phosphorus Level 3.1, Aspartate Amino Transf (AST/SGOT) 17, Alanine Aminotransferase (ALT/SGPT) 22, Alkaline Phosphatase 101, Total Bilirubin 0.2, Total Protein 6.7, Albumin 2.0 L Vital Signs Date Time Temp Pulse Resp B/P (MAP) Pulse Ox O2 Delivery O2 Flow Rate FiO2 05/19/18 06:00 97.8 91 18 112/65 (81) 99 05/16/18 14:00 2.0 I&O- Last 24 Hours up to 6 AM 05/19/18 06:00 Intake Total 1813 ml Output Total 50 ml Balance 1763 ml CRISPIN PIERCE MD May 19, 2018 13:34
--- NOTE | 2018-05-19 17:26 | IPN ---
DATE: 05/19/2018 Mr. Clark is seen this morning on his bedside. He is feeling better and reports that his diarrhea has improved significantly and now his stools are semi-formed. His abdominal pain and tenderness has also improved. He is able to ambulate in the hallway but did have some shortness of breath yesterday when he walked. He denies any nausea. His appetite is improving. On physical exam, temperature 97.8 degrees Fahrenheit, heart rate 86 per minute, and respiratory rate 18 per minute. Blood pressure 110/65 mmHg and oxygen saturation 100% on room air. Head is atraumatic. His right eye is blind. Neck is supple and jugular venous distention (JVD) does not seem to be abnormally elevated. There is no oral thrush or ulcers. Heart sounds are regular with systolic murmur grade 1/6. Lungs sound clear to auscultation. Abdomen is soft and mild tenderness in left lower quadrant is still present. Extremities have no cyanosis or clubbing. Neurologically he is awake, alert, and oriented times three. Today's labs show WBC count 9.6, hemoglobin 8.4, and hematocrit 27.7. Platelets 392. Sodium 138, potassium 4.1, CO2 24, BUN 40, and creatinine 5.14. Glucose 170 and calcium 8.3. PROBLEMS: 1. End-stage renal disease. Patient is due for dialysis today and he will be dialyzed this afternoon. 2. Congestive heart failure. Volume status has been reasonably well compensated and we will try to remove about 1 liter fluid as tolerated with dialysis today. 3. Hypokalemia. Patient had persistent hypokalemia for several days which has finally improved after supplementing. His oral intake has been poor and he also had diarrhea which caused severe hypokalemia. At this point, we will dialyze him with 3.0 mEq potassium bath and recheck his electrolytes tomorrow. 4. Anemia. So far his anemia is stable and he has not required a transfusion. We will continue to treat him with Aranesp once a week. 5. End-stage renal disease. Patient had multiple questions about potential transplant. I have advised him that he is not a suitable candidate for kidney transplant due to his cardiac status and overall frail condition. I answered all his questions.
[2018-05-19 17:35] VITALS: BP 136/83
[2018-05-19] MEDS: ONDANSETRON 4 MG TAB (S0181) PO PRN (18:06)
[2018-05-19] MEDS: ACETAMINOPHEN 500 MG TAB PO PRN (21:13)
[2018-05-19] MEDS: rOPINIRole 1MG TAB PO SCH (21:14)
[2018-05-19] MEDS: FEBUXOSTAT 40 MG TABLET (ULORIC) PO SCH (21:14)
[2018-05-19] MEDS: LEVEMIR (INSULIN DETEMIR) 1 UNITS/0.01ML SC SCH (21:14)
[2018-05-19] MEDS: PRAVASTATIN 20 MG TAB PO SCH (21:14)
[2018-05-19] MEDS: CLOPIDOGREL 75 MG TAB PO SCH (21:14)
[2018-05-19] MEDS: GABAPENTIN 100 MG CAP PO SCH (21:15)
[2018-05-19 22:00] VITALS: BP 130/78
[2018-05-20 06:00] VITALS: BP 97/58
[2018-05-20 06:14] LABS: BASO # 0.1 10^3/uL (0.0-0.2); BASO % 1.2 % (0.0-1.0); HEMATOCRIT 26.7 % (42.0-52.0); HEMOGLOBIN 8.1 g/dl (13.5-17.5); LYMPH # 1.5 10^3/uL (1.5-4.5); LYMPH % 14.4 % (24.0-44.0); MEAN CORPUSCULAR HEMOGLOBIN 29.8 pg (27.0-33.0); MEAN CORPUSCULAR HGB CONC 30.3 g/dl (32.0-36.5); MEAN CORPUSCULAR VOLUME 98.2 fl (80.0-96.0); MONO % 9.8 % (0.0-5.0); NEUTROPHILS # 7.4 10^3/uL (1.8-7.7); NEUTROPHILS % 70.8 % (36.0-66.0); PLATELET COUNT, AUTOMATED 339 10^3/uL (150-450); RED BLOOD COUNT 2.72 10^6/uL (4.30-6.10); WHITE BLOOD COUNT 10.5 10^3/uL (4.0-10.0)
[2018-05-20 06:38] LABS: ALBUMIN 2.1 GM/DL (3.2-5.2); BILIRUBIN,TOTAL 0.2 MG/DL (0.2-1.0); CALCIUM LEVEL 8.2 MG/DL (8.8-10.2); CREATININE FOR GFR 3.57 MG/DL (0.70-1.30); GLOMERULAR FILTRATION RATE 18.7 (>49); POTASSIUM SERUM 3.7 MEQ/L (3.5-5.1); TOTAL PROTEIN 6.6 GM/DL (6.4-8.2)
[2018-05-20] MEDS: ENTRESTO 24-26MG TABLET (SACUBITRIL/VALSARTAN) PO SCH ×2 (08:23→21:47)
[2018-05-20] MEDS: THIAMINE 100 MG TAB PO SCH (08:24)
[2018-05-20] MEDS: LACTOBACILLUS ACIDOPHILUS CAP (BACID) PO SCH ×3 (08:24→21:47)
[2018-05-20] MEDS: FIDAXOMICIN 200 MG TAB (DIFICID) PO SCH ×2 (08:24→21:47)
[2018-05-20] MEDS: VITAMIN D 1,000 INTERNATIONAL UNITS TABLET PO SCH (08:25)
[2018-05-20] MEDS: CARVedilol 3.125 MG TAB PO SCH ×2 (08:25→21:46)
[2018-05-20] MEDS: predniSONE 2.5 MG TAB PO SCH (08:25)
[2018-05-20] MEDS: CALCITRIOL 0.25 MCG CAP (S0169) PO SCH (08:25)
[2018-05-20] MEDS: PANTOPRAZOLE 40MG TAB (PROTONIX) PO SCH ×2 (08:25→21:46)
[2018-05-20] MEDS: ASPIRIN 81 MG ENTERIC TAB PO SCH (08:25)
[2018-05-20] MEDS: HumaLOG INSULIN (NovoLOG) PER UNIT SC SCH ×3 (08:26→18:18)
[2018-05-20] MEDS: HEPARIN SOD (PORCINE) 5000 UNITS/ML VIAL SQ SCH ×2 (08:26→21:45)
[2018-05-20] MEDS ORDERED: DIFI200T PO (08:49)
--- NOTE | 2018-05-20 13:34 | IPNPDOC ---
Text Note Date of Service The patient was seen on 05/20/18. NOTE Subjective:Pt was noted to have 11 BM yesterday, although he notes they are not as watery. No abdominal pain. No chest pain or shortness of breath. Objective: Vitals: (see below) General: No acute distress, laying comfortably in bed. HEENT: Moist mucous membranes. Neck: No JVD or lymphadenopathy. Dialysis catheter intact. No bleeding noted. Cardiac: RRR, No murmurs Pulm: Clear to auscultation b/l. No wheezing, rhonchi Abd: NT/ND + BS Ext: Trace edema bilateral lower extremity. No cyanosis. Labs (see below) Assessment/Plan Active/Acute Issues: 1. C. difficile colitis. Status post vancomycin. On Dificid and improving. Stools are becoming more formed, although had 11 yesterday. We'll continue to monitor. 2. Elevated troponin with minimal EKG changes. Evaluated by , appreciate input. We'll avoid episodes of hypotension. History of CAD status post CABG as well as multiple stents. Continue home meds. 3. History of end-stage renal disease on hemodialysis. Appreciate nephrology input. 4. History of systolic heart failure EF of 35%. Euvolemic. Fluid management as per nephrology on dialysis. 5. Diabetes mellitus - Levemir. cont sliding scale insulin. 6. Hyperlipidemia on statin 7. History of diabetic neuropathy on Neurontin 8. History of GERD on PPI 9. History of restless leg syndrome continue meds. DVT prophy: Heparin subcutaneous PT/OT on board. VS,Fishbone, I+O VS, Fishbone, I+O Laboratory Tests 05/20/18 05:58 Red Blood Count 2.72 L, Mean Corpuscular Volume 98.2 H, Mean Corpuscular Hemoglobin 29.8, Mean Corpuscular Hemoglobin Concent 30.3 L, Red Cell Distribution Width 20.8 H, Neutrophils (%) (Auto) 70.8 H, Lymphocytes (%) (Auto) 14.4 L, Monocytes (%) (Auto) 9.8 H, Eosinophils (%) (Auto) 0.0, Basophils (%) (Auto) 1.2 H, Neutrophils # (Auto) 7.4, Lymphocytes # (Auto) 1.5, Monocytes # (Auto) 1.0 H, Eosinophils # (Auto) 0.0, Basophils # (Auto) 0.1, Calcium Level 8.2 L, Aspartate Amino Transf (AST/SGOT) 23, Alanine Aminotransferase (ALT/SGPT) 20, Alkaline Phosphatase 104, Total Bilirubin 0.2, Total Protein 6.6, Albumin 2.1 L Vital Signs Date Time Temp Pulse Resp B/P (MAP) Pulse Ox O2 Delivery O2 Flow Rate FiO2 05/20/18 08:25 80 117/62 05/20/18 06:00 97.7 18 98 05/16/18 14:00 2.0 I&O- Last 24 Hours up to 6 AM 05/20/18 06:00 Intake Total 1056 ml Output Total 2310 ml Balance -1254 ml CRISPIN PIERCE MD May 20, 2018 13:34
[2018-05-20 14:00] VITALS: BP 106/59
--- NOTE | 2018-05-20 15:08 | IPN ---
DATE: 05/20/2018 Mr. Clark is seen this morning on his bedside. He was dialyzed yesterday and reports that towards the end of dialysis he had nausea and abdominal pain, which resolved quickly and he was able to eat last night and again this morning without any problem. His watery diarrhea has improved; however, he still reports multiple bowel movements. PHYSICAL EXAMINATION: Temperature 97.7 degrees Fahrenheit, heart rate 80 per minute and respiratory rate 18 per minute. Blood pressure 117/62 mmHg and oxygen saturation 98% on room air. His head is atraumatic. Neck is supple and jugular venous distention (JVD) does not seem to be abnormally elevated. Heart sounds are regular with a systolic murmur grade 1/6. There is no pericardial friction rub. Lungs sound clear to auscultation. Abdomen is soft with minimal tenderness in left lower quadrant. Bowel sounds are normal. Extremities have no cyanosis or clubbing. Neurologically, he is awake, alert and oriented. Today's labs show WBC count 10.5, hemoglobin 8.1 and hematocrit 26.7. Platelets 339. Sodium 140, potassium 3.7, CO2 29, BUN 24 and creatinine 3.57. Glucose 157 and calcium 8.2. PROBLEMS: 1. End-stage renal disease. The patient was dialyzed yesterday and his next dialysis will be scheduled for tomorrow. His volume status is very well compensated. 2. Chronic systolic congestive heart failure. The patient remains on Entresto 24/26 mg 1 tablet twice a day, along with low-dose Carvedilol 3.125 mg twice a day. We will continue with the same. 3. Colitis with diarrhea. The patient has been on Dificid twice a day; however, continues to have loose stools. It remains to be seen if he improves or will require a fecal transplant. 4. Chronic hypotension. He remains stable on low-dose midodrine, which will be continued. 5. Anemia. His anemia did get worse without any active blood loss. We will recheck his CBC tomorrow and consider to transfuse him if needed. There is no emergent need for transfusion today. 6. Generalized weakness and deconditioning. The patient is able to ambulate in the hallway, and I have encouraged him to continue the same.
[2018-05-20] MEDS: LEVEMIR (INSULIN DETEMIR) 1 UNITS/0.01ML SC SCH (21:46)
[2018-05-20] MEDS: rOPINIRole 1MG TAB PO SCH (21:46)
[2018-05-20] MEDS: GABAPENTIN 100 MG CAP PO SCH (21:47)
[2018-05-20] MEDS: CLOPIDOGREL 75 MG TAB PO SCH (21:47)
[2018-05-20] MEDS: FEBUXOSTAT 40 MG TABLET (ULORIC) PO SCH (21:47)
[2018-05-20] MEDS: PRAVASTATIN 20 MG TAB PO SCH (21:47)
[2018-05-20 22:00] VITALS: BP 120/48
[2018-05-21 06:00] VITALS: BP 124/73
[2018-05-21] MEDS: predniSONE 2.5 MG TAB PO SCH (06:00)
[2018-05-21] MEDS: THIAMINE 100 MG TAB PO SCH (06:00)
[2018-05-21] MEDS: LACTOBACILLUS ACIDOPHILUS CAP (BACID) PO SCH ×3 (06:01→21:42)
[2018-05-21] MEDS: CARVedilol 3.125 MG TAB PO SCH ×2 (06:01→21:43)
[2018-05-21] MEDS: PANTOPRAZOLE 40MG TAB (PROTONIX) PO SCH ×2 (06:01→21:42)
[2018-05-21] MEDS: VITAMIN D 1,000 INTERNATIONAL UNITS TABLET PO SCH (06:01)
[2018-05-21] MEDS: ASPIRIN 81 MG ENTERIC TAB PO SCH (06:01)
[2018-05-21] MEDS: CALCITRIOL 0.25 MCG CAP (S0169) PO SCH (06:02)
[2018-05-21] MEDS: HEPARIN SOD (PORCINE) 5000 UNITS/ML VIAL SQ SCH ×2 (06:02→21:00)
[2018-05-21] MEDS: FIDAXOMICIN 200 MG TAB (DIFICID) PO SCH ×2 (06:02→21:42)
[2018-05-21] MEDS: ENTRESTO 24-26MG TABLET (SACUBITRIL/VALSARTAN) PO SCH ×2 (06:02→21:41)
[2018-05-21] MEDS: HumaLOG INSULIN (NovoLOG) PER UNIT SC SCH ×3 (08:00→17:39)
[2018-05-21 09:45] LABS: BASO # 0.1 10^3/uL (0.0-0.2); BASO % 0.6 % (0.0-1.0); HEMATOCRIT 26.6 % (42.0-52.0); LYMPH # 1.3 10^3/uL (1.5-4.5); LYMPH % 11.8 % (24.0-44.0); MEAN CORPUSCULAR HGB CONC 30.1 g/dl (32.0-36.5); MEAN CORPUSCULAR VOLUME 99.6 fl (80.0-96.0); MONO % 8.9 % (0.0-5.0); NEUTROPHILS # 8.5 10^3/uL (1.8-7.7); NEUTROPHILS % 75.2 % (36.0-66.0); PLATELET COUNT, AUTOMATED 308 10^3/uL (150-450); RED BLOOD COUNT 2.67 10^6/uL (4.30-6.10); WHITE BLOOD COUNT 11.3 10^3/uL (4.0-10.0)
[2018-05-21 10:18] LABS: ALBUMIN 2.3 GM/DL (3.2-5.2); BILIRUBIN,TOTAL 0.3 MG/DL (0.2-1.0); CALCIUM LEVEL 7.7 MG/DL (8.8-10.2); CREATININE FOR GFR 4.27 MG/DL (0.70-1.30); GLOMERULAR FILTRATION RATE 15.2 (>49); POTASSIUM SERUM 3.5 MEQ/L (3.5-5.1); TOTAL PROTEIN 6.2 GM/DL (6.4-8.2)
[2018-05-21 11:29] LABS: MB/CK RELATIVE INDEX 9.69 (< OR =4); TROPONIN I 1.11 NG/ML (< 0.10)
[2018-05-21] MEDS: MIDODRINE 5 MG TAB PO SCH ×2 (12:32→17:40)
[2018-05-21] MEDS: VANCOMYCIN ORAL SOL 250MG/5ML ORAL SYRINGE PO SCH ×3 (12:51→23:38)
[2018-05-21] MEDS ORDERED: POTASSIUM CHLORIDE 10 MEQ SR TABLET PO ONE (13:00)
[2018-05-21] MEDS ORDERED: MAG SULF 1GM/100ML (MAG RUN) 1 GM in APPROPRIATE DILUENT 1 EA IV ONE (13:00)
--- NOTE | 2018-05-21 13:17 | IPNPDOC ---
Text Note Date of Service The patient was seen on 05/21/18. NOTE Subjective: Patient states his stools are becoming more watery today. No abdo carloz pain. No chest pain or shortness of breath. 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 Discussed case with Dr. Diop, who does not recommend any further interventions as this is benign. Patient denied any chest pain or palpitations of time. Also discussed the troponin of 1.[address] Diop, however he recommends outpatient follow-up with his global consumer sector vice president especially since the patient is asymptomatic. Objective: Vitals: (see below) General: No acute distress, laying comfortably in bed. HEENT: Moist mucous membranes. Neck: No JVD or lymphadenopathy. Dialysis catheter intact. No bleeding noted. Cardiac: RRR, No murmurs Pulm: Clear to auscultation b/l. No wheezing, rhonchi Abd: NT/ND + BS Ext: Trace edema bilateral lower extremity. No cyanosis. Labs (see below) Assessment/Plan Active/Acute Issues: 1. C. difficile colitis. Status post vancomycin. On Dificid and improving. Stools are becoming more formed, although had 11 yesterday. We'll continue to monitor. 2. Elevated troponin with minimal EKG changes. Evaluated by , appreciate input. We'll avoid episodes of hypotension. History of CAD status post CABG as well as multiple stents. Continue home meds. 3. History of end-stage renal disease on hemodialysis. Appreciate nephrology input. 4. History of systolic heart failure EF of 35%. Euvolemic. Fluid management as per nephrology on dialysis. 5. Diabetes mellitus - Levemir. cont sliding scale insulin. 6. Hyperlipidemia on statin 7. History of diabetic neuropathy on Neurontin 8. History of GERD on PPI 9. History of restless leg syndrome continue meds. 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 Diop who does not recommend any further interventions. Troponin 1.1 however patient is asymptomatic. Patient has been evaluated by Dr. Gaines earlier with recommendations for observation. The patient did note that he had a cardiac cath in February with no new obstructive lesions. Patient is asymptomatic. Continue to monitor on telemetry. DVT prophy: Heparin subcutaneous PT/OT on board. VS,Fishbone, I+O VS, Fishbone, I+O Laboratory Tests 05/21/18 09:08 Red Blood Count 2.67 L, Mean Corpuscular Volume 99.6 H, Mean Corpuscular Hemoglobin 30.0, Mean Corpuscular Hemoglobin Concent 30.1 L, Red Cell Distrib ution Width 20.9 H, Neutrophils (%) (Auto) 75.2 H, Lymphocytes (%) (Auto) 11.8 L, Monocytes (%) (Auto) 8.9 H, Eosinophils (%) (Auto) 0.0, Basophils (%) (Auto) 0.6, Neutrophils # (Auto) 8.5 H, Lymphocytes # (Auto) 1.3 L, Monocytes # (Auto) 1.0 H, Eosinophils # (Auto) 0.0, Basophils # (Auto) 0.1, Calcium Level 7.7 L, Aspartate Amino Transf (AST/SGOT) 19, Alanine Aminotransferase (ALT/SGPT) 20, Alkaline Phosphatase 109, Total Bilirubin 0.3, Total Protein 6.2 L, Albumin 2.3 L Vital Signs Date Time Temp Pulse Resp B/P (MAP) Pulse Ox O2 Delivery O2 Flow Rate FiO2 05/21/18 06:01 89 114/61 05/21/18 06:00 97.0 20 94 05/16/18 14:00 2.0 I&O- Last 24 Hours up to 6 AM 05/21/18 06:00 Intake Total 900 ml Output Total 50 ml Balance 850 ml CRISPIN PIERCE MD May 21, 2018 13:17
--- NOTE | 2018-05-21 15:56 | ECGEPIP ---
Stationary ECG Study [facility] Test Date: 2018-05-21 Pat Name: NICHOLAS WAKEFIELD Department: Room: [place] [address] Gender: M Emotionally Impaired Teacher: CAMMIE : 1955 Requested By: CRISPIN PIERCE Order Number: [id number] Reading MD: Brenden Diop Measurements Intervals [place] Rate: 79 P: 55 WV: 159 QRS: -24 QRSD: 112 T: 165 QT: 418 QTc: 480 Interpretive Statements Normal sinus rhythm with isolated PVC Leftward axis with prominent voltage in aVL and associated strain pattern in keeping with LVH Inferior Q waves with ST elevation and possibly reciprocal precordial ST depression. Precordial repolarization abnormalities more prominent than on 05/12/18. Findings in keeping with prior inferior infarction with possibly recurrent myocardial ischemia. Clinical correlation advised. Electronically Signed On 05-21-2018 15:55:57 EST by Brenden Diop
[2018-05-21 17:46] LABS: MB/CK RELATIVE INDEX 9.09 (< OR =4); TROPONIN I 0.98 NG/ML (< 0.10)
[2018-05-21 18:00] VITALS: BP 143/69
[2018-05-21] MEDS: CLOPIDOGREL 75 MG TAB PO SCH (21:41)
[2018-05-21] MEDS: rOPINIRole 1MG TAB PO SCH (21:42)
[2018-05-21] MEDS: GABAPENTIN 100 MG CAP PO SCH (21:42)
[2018-05-21] MEDS: PRAVASTATIN 20 MG TAB PO SCH (21:43)
[2018-05-21] MEDS: FEBUXOSTAT 40 MG TABLET (ULORIC) PO SCH (21:43)
[2018-05-21] MEDS: LEVEMIR (INSULIN DETEMIR) 1 UNITS/0.01ML SC SCH (21:44)
[2018-05-21 22:00] VITALS: BP 119/61
--- NOTE | 2018-05-21 23:32 | IPN ---
DATE: 05/21/2018 Mr. Clark is seen this morning on his bedside. He reports worsening diarrhea once again, but denies any vomiting and abdominal pain has also improved. He has no dyspnea or chest pain. He is being treated for Clostridium difficile (C. diff) colitis with Dificid and vancomycin has been added by his primary care team. PHYSICAL EXAMINATION: VITAL SIGNS: Temperature 97 degrees Fahrenheit, heart rate 80 per minute and respiratory rate 20 per minute. Blood pressure 114/60 mmHg and oxygen saturation 94% on room air. HEENT: Head is atraumatic. Neck is supple and without jugular venous distention (JVD) or thyroid enlargement. His right eye is blind. There is no oral thrush or ulcers. HEART: Sounds are regular. LUNGS: Lungs clear to auscultation. ABDOMEN: Soft and nontender and bowel sounds are normal. EXTREMITIES: Extremities have no cyanosis or clubbing. NEUROLOGICAL: Neurologically he is awake, alert and at his baseline mentation. LABORATORIES: Today's laboratories show white blood cell (WBC) count 11.3, hemoglobin 8.0 and hematocrit 26.6. Platelets 308. Sodium 141, potassium 3.5, CO2 is 26, BUN 39 and creatinine 4.27. Creatine phosphokinase (CPK) is 32 and troponin 1.11. PROBLEMS: 1. End-stage renal disease. The patient is regularly dialyzed on Wednesday, and Wednesday schedule. He will be dialyzed this afternoon. 2. Clostridium difficile (C. diff) colitis. Diarrhea is worsening once again. He has been on Dificid and now oral vancomycin has been added. The patient understands that if his diarrhea does not improve he is likely to require a fecal transplant. 3. Chronic systolic congestive heart failure. His volume status has been very well compensated with dialysis and will try to remove about one liter of fluid with dialysis today. 4. Coronary artery disease. He has been asymptomatic and denies any chest pain. He remains on chronic beta-claudia and antiplatelet therapy. 5. Anemia. His anemia has gradually worsened most likely related to ongoing colitis and will consider to transfuse him during next dialysis if his anemia gets worse. At present, I do not feel that there is any emergent indication for transfusion today.
[2018-05-22] MEDS: VANCOMYCIN ORAL SOL 250MG/5ML ORAL SYRINGE PO SCH ×4 (05:09→23:19)
[2018-05-22 06:00] VITALS: BP 105/58
[2018-05-22 06:21] LABS: BASO # 0.1 10^3/uL (0.0-0.2); BASO % 0.7 % (0.0-1.0); HEMATOCRIT 26.6 % (42.0-52.0); HEMOGLOBIN 7.9 g/dl (13.5-17.5); LYMPH # 1.4 10^3/uL (1.5-4.5); MEAN CORPUSCULAR HEMOGLOBIN 29.4 pg (27.0-33.0); MEAN CORPUSCULAR HGB CONC 29.7 g/dl (32.0-36.5); MEAN CORPUSCULAR VOLUME 98.9 fl (80.0-96.0); MONO # 0.7 10^3/uL (0.0-0.8); MONO % 8.3 % (0.0-5.0); NEUTROPHILS # 6.4 10^3/uL (1.8-7.7); NEUTROPHILS % 73.2 % (36.0-66.0); PLATELET COUNT, AUTOMATED 288 10^3/uL (150-450); RED BLOOD COUNT 2.69 10^6/uL (4.30-6.10); WHITE BLOOD COUNT 8.7 10^3/uL (4.0-10.0)
[2018-05-22 06:42] LABS: ALBUMIN 2.2 GM/DL (3.2-5.2); BILIRUBIN,TOTAL 0.3 MG/DL (0.2-1.0); CALCIUM LEVEL 8.3 MG/DL (8.8-10.2); CREATININE FOR GFR 3.18 MG/DL (0.70-1.30); GLOMERULAR FILTRATION RATE 21.4 (>49); POTASSIUM SERUM 3.5 MEQ/L (3.5-5.1); TOTAL PROTEIN 6.5 GM/DL (6.4-8.2)
[2018-05-22] MEDS: PANTOPRAZOLE 40MG TAB (PROTONIX) PO SCH ×2 (08:46→21:42)
[2018-05-22] MEDS: LACTOBACILLUS ACIDOPHILUS CAP (BACID) PO SCH ×3 (08:47→21:42)
[2018-05-22] MEDS: VITAMIN D 1,000 INTERNATIONAL UNITS TABLET PO SCH (08:47)
[2018-05-22] MEDS: ENTRESTO 24-26MG TABLET (SACUBITRIL/VALSARTAN) PO SCH ×2 (08:48→21:00)
[2018-05-22] MEDS: ASPIRIN 81 MG ENTERIC TAB PO SCH (08:48)
[2018-05-22] MEDS: FIDAXOMICIN 200 MG TAB (DIFICID) PO SCH ×2 (08:48→21:42)
[2018-05-22] MEDS: CALCITRIOL 0.25 MCG CAP (S0169) PO SCH (08:48)
[2018-05-22] MEDS: THIAMINE 100 MG TAB PO SCH (08:49)
[2018-05-22] MEDS: predniSONE 2.5 MG TAB PO SCH (08:50)
[2018-05-22] MEDS: CARVedilol 3.125 MG TAB PO SCH ×2 (08:50→21:43)
[2018-05-22] MEDS: HumaLOG INSULIN (NovoLOG) PER UNIT SC SCH ×3 (08:51→16:57)
[2018-05-22] MEDS: HEPARIN SOD (PORCINE) 5000 UNITS/ML VIAL SQ SCH ×2 (08:54→21:00)
--- NOTE | 2018-05-22 10:43 | IPNPDOC ---
Text Note Date of Service The patient was seen on 05/22/18. NOTE Subjective: Pt states he did not have any chest pain/palpitations/shortness of breath/dizziness/syncopal episodes during this hospitalization. Feels well. Still having multiple bowel movements, had 4 since this morning, however states they are becoming slightly more formed. He understands that he may require stool transplant if his C. difficile does not resolve. Tolerating vancomycin and Dificid. Objective: Vitals: (see below) General: No acute distress, laying comfortably in bed. HEENT: Moist mucous membranes. Neck: No JVD or lymphadenopathy. Dialysis catheter intact. No bleeding noted. Cardiac: RRR, No murmurs Pulm: Clear to auscultation b/l. No wheezing, rhonchi Abd: NT/ND + BS Ext: Trace edema bilateral lower extremity. No cyanosis. Labs (see below) Assessment/Plan Active/Acute Issues: 1. C. difficile colitis. Started on vancomycin. Continue Dificid and improving. Stools are becoming more formed, although had 11 yesterday. We'll continue to monitor. May require stool transplant. 2. Elevated troponin with minimal EKG changes. Evaluated by , appreciate input. We'll avoid episodes of hypotension. History of CAD status post CABG as well as multiple stents. Continue home meds. 3. History of end-stage renal disease on hemodialysis. Appreciate nephrology input. 4. History of systolic heart failure EF of 35%. Euvolemic. Fluid management as per nephrology on dialysis. 5. Diabetes mellitus - Levemir. cont sliding scale insulin. 6. Hyperlipidemia on statin 7. History of diabetic neuropathy on Neurontin 8. History of GERD on PPI 9. History of restless leg syndrome continue meds. 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 Diop who does not recommend any further interventions. Troponin 1.1 however patient is asymptomatic. Patient has been evaluated by Dr. Gaines earlier with recommendations for observation. The patient did note that he had a cardiac cath in February with no new obstructive lesions. Patient is asymptomatic. Continue to monitor on telemetry. DVT prophy: Heparin subcutaneous PT/OT on board. VS,Fishbone, I+O VS, Fishbone, I+O Laboratory Tests 05/22/18 05:56 Red Blood Count 2.69 L, Mean Corpuscular Volume 98.9 H, Mean Corpuscular Hemoglobin 29.4, Mean Corpuscular Hemoglobin Concent 29.7 L, Red Cell Distribution Width 21.2 H, Neutrophils (%) (Auto) 73.2 H, Lymphocytes (%) (Auto) 16.0 L, Monocytes (%) (Auto) 8.3 H, Eosinophils (%) (Auto) 0.0, Basophils (%) (Auto) 0.7, Neutrophils # (Auto) 6.4, Lymphocytes # (Auto) 1.4 L, Monocytes # (Auto) 0.7, Eosinophils # (Auto) 0.0, Basophils # (Auto) 0.1, Calcium Level 8.3 L, Aspartate Amino Transf (AST/SGOT) 16, Alanine Aminotransferase (ALT/SGPT) 18, Alkaline Phosphatase 95, Total Bilirubin 0.3, Total Protein 6.5, Albumin 2.2 L Vital Signs Date Time Temp Pulse Resp B/P (MAP) Pulse Ox O2 Delivery O2 Flow Rate FiO2 05/22/18 08:50 83 102/58 05/22/18 06:00 96.8 16 99 05/16/18 14:00 2.0 I&O- Last 24 Hours up to 6 AM 05/22/18 06:00 Intake Total 1320 ml Output Total 1075 ml Balance 245 ml CRISPIN PIERCE MD May 22, 2018 10:43
[2018-05-22 14:00] VITALS: BP 102/57
[2018-05-22] MEDS: rOPINIRole 1MG TAB PO SCH (21:42)
[2018-05-22] MEDS: CLOPIDOGREL 75 MG TAB PO SCH (21:42)
[2018-05-22] MEDS: GABAPENTIN 100 MG CAP PO SCH (21:42)
[2018-05-22] MEDS: FEBUXOSTAT 40 MG TABLET (ULORIC) PO SCH (21:43)
[2018-05-22] MEDS: PRAVASTATIN 20 MG TAB PO SCH (21:44)
[2018-05-22] MEDS: LEVEMIR (INSULIN DETEMIR) 1 UNITS/0.01ML SC SCH (21:44)
[2018-05-22 22:00] VITALS: BP 102/58
[2018-05-23] MEDS: VANCOMYCIN ORAL SOL 250MG/5ML ORAL SYRINGE PO SCH (05:05)
[2018-05-23 06:00] VITALS: BP 105/60
[2018-05-23 06:07] LABS: BASO # 0.1 10^3/uL (0.0-0.2); BASO % 0.7 % (0.0-1.0); HEMATOCRIT 26.8 % (42.0-52.0); HEMOGLOBIN 8.3 g/dl (13.5-17.5); LYMPH # 1.2 10^3/uL (1.5-4.5); LYMPH % 15.3 % (24.0-44.0); MEAN CORPUSCULAR VOLUME 96.8 fl (80.0-96.0); MONO # 0.6 10^3/uL (0.0-0.8); NEUTROPHILS # 5.7 10^3/uL (1.8-7.7); NEUTROPHILS % 74.6 % (36.0-66.0); PLATELET COUNT, AUTOMATED 260 10^3/uL (150-450); RED BLOOD COUNT 2.77 10^6/uL (4.30-6.10); WHITE BLOOD COUNT 7.7 10^3/uL (4.0-10.0)
[2018-05-23 06:31] LABS: ALBUMIN 2.4 GM/DL (3.2-5.2); BILIRUBIN,TOTAL 0.2 MG/DL (0.2-1.0); CREATININE FOR GFR 3.92 MG/DL (0.70-1.30); GLOMERULAR FILTRATION RATE 16.8 (>49); POTASSIUM SERUM 3.4 MEQ/L (3.5-5.1); TOTAL PROTEIN 6.2 GM/DL (6.4-8.2)
[2018-05-23] MEDS: ENTRESTO 24-26MG TABLET (SACUBITRIL/VALSARTAN) PO SCH ×3 (07:43→21:00)
[2018-05-23] MEDS: HEPARIN SOD (PORCINE) 5000 UNITS/ML VIAL SQ SCH ×3 (07:44→21:00)
--- NOTE | 2018-05-23 07:53 | IPN ---
DATE OF SERVICE: 05/22/2018 Mr. Clark is seen this morning on his bedside. He is sitting at the edge of bed and reports that he continues to have loose stools. He denies any dyspnea, chest pain, fever or chills. He does get some abdominal pain when he has to have bowel movement. He does not have watery diarrhea anymore but still has frequent stools. PHYSICAL EXAMINATION: Temperature 96.8 degrees Fahrenheit, heart rate 75 per minute and respiratory rate 16 per minute. Blood pressure 105/58 mmHg and oxygen saturation 99% on room air. His head is atraumatic. Right eye is blind. Neck is supple and JVD is moderately elevated. He has a hemodialysis catheter in right internal jugular vein. There is no oral thrush or ulcers. His heart sounds are regular and lungs sound clear to auscultation. Abdomen is soft and minimal tenderness is present in left lower quadrant. Bowel sounds are normal. Extremities have no cyanosis or clubbing. Skin has no rash or ulcers. Neurologically he is at his baseline mentation without a focal deficit. Today's labs show WBC count 8.7, hemoglobin 7.9 and hematocrit 26.6. Platelets 288. Sodium 139, potassium 3.5, CO2 28, BUN 26 and creatinine 3.18. Glucose 123 and calcium 8.3. PROBLEMS: 1. End-stage renal disease. The patient was dialyzed yesterday and we will plan to dialyze him again on Wednesday. Electrolytes are all within normal range and volume status seems reasonably stable. 2. Chronic systolic congestive heart failure. We have been removing only minimal amount of fluid with dialysis due to frequent diarrhea and risk of dehydration. His watery diarrhea has improved and we will try to remove fluid more aggressively with the next dialysis in order to keep his volume status well-compensated. 3. Anemia. His anemia is worsening without any obvious blood loss. He is likely to require transfusion during dialysis. CBC should be checked every day and we will continue to transfuse him during next dialysis on Wednesday. 4. Clostridium difficile colitis. This is his main problem and issue persists despite the treatment with deficit and addition of oral vancomycin. He has had multiple bowel movements daily for last 3 days after initial improvement. I have discussed with him about potential need for a fecal transplant. I would suggest to get a GI consultation next week. The patient remains on Dificid and oral vancomycin.
[2018-05-23] MEDS: HumaLOG INSULIN (NovoLOG) PER UNIT SC SCH ×3 (07:57→17:10)
[2018-05-23] MEDS: FIDAXOMICIN 200 MG TAB (DIFICID) PO SCH (07:58)
[2018-05-23] MEDS: ASPIRIN 81 MG ENTERIC TAB PO SCH (07:58)
[2018-05-23] MEDS: CARVedilol 3.125 MG TAB PO SCH ×2 (07:58→20:28)
[2018-05-23] MEDS: CALCITRIOL 0.25 MCG CAP (S0169) PO SCH (07:58)
[2018-05-23] MEDS: THIAMINE 100 MG TAB PO SCH (07:58)
[2018-05-23] MEDS: predniSONE 2.5 MG TAB PO SCH (07:59)
[2018-05-23] MEDS: PANTOPRAZOLE 40MG TAB (PROTONIX) PO SCH ×2 (07:59→20:27)
[2018-05-23] MEDS: VITAMIN D 1,000 INTERNATIONAL UNITS TABLET PO SCH (07:59)
[2018-05-23] MEDS: LACTOBACILLUS ACIDOPHILUS CAP (BACID) PO SCH ×3 (07:59→20:27)
--- NOTE | 2018-05-23 13:15 | IPNPDOC ---
Text Note Date of Service The patient was seen on 05/23/18. NOTE Subjective: Patient states he still has diarrhea every 2 hours.. Denies chest pain/palpitations. No nausea or vomiting. No abdominal pain. I have advised him that he will likely need a stool transplant and I will consult gastroenterology. Objective: Vitals: (see below) General: No acute distress, laying comfortably in bed. HEENT: Moist mucous membranes. Neck: No JVD or lymphadenopathy. Dialysis catheter intact. No bleeding noted. Cardiac: RRR, No murmurs Pulm: Clear to auscultation b/l. No wheezing, rhonchi Abd: NT/ND + BS Ext: Trace edema bilateral lower extremity. No cyanosis. Labs (see below) Assessment/Plan Active/Acute Issues: 1. C. difficile colitis. Continue Dificid. Diarrhea persisted. Stools are becoming more formed, although had 12 yesterday. We'll continue to monitor. I have consulted infectious disease and gastroenterology. 2. Elevated troponin with minimal EKG changes. Evaluated by , appreciate input. We'll avoid episodes of hypotension. History of CAD status post CABG as well as multiple stents. Continue home meds. I have re-consulted Dr. Gaines to further evaluate as patient may need a stool transplant. 3. History of end-stage renal disease on hemodialysis. Appreciate nephrology input. 4. History of systolic heart failure EF of 35%. Euvolemic. Fluid management as per nephrology on dialysis. 5. Diabetes mellitus - Levemir. cont sliding scale insulin. 6. Hyperlipidemia on statin 7. History of diabetic neuropathy on Neurontin 8. History of GERD on PPI 9. History of restless leg syndrome continue meds. 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 Diop who does not recommend any further interventions. Troponin 1.1 however patient is asymptomatic. Patient has been evaluated by Dr. Gaines earlier with recommendations for observation. The patient did note that he had a cardiac cath in February with no new obstructive lesions. Patient is asymptomatic. Continue to monitor on telemetry. DVT prophy: Heparin subcutaneous PT/OT on board. VS,Fishbone, I+O VS, Fishbone, I+O Laboratory Tests 05/23/18 05:44 Red Blood Count 2.77 L, Mean Corpuscular Volume 96.8 H, Mean Corpuscular Hemoglobin 30.0, Mean Corpuscular Hemoglobin Concent 31.0 L, Red Cell Distribution Width 21.0 H, Neutrophils (%) (Auto) 74.6 H, Lymphocytes (%) (Auto) 15.3 L, Monocytes (%) (Auto) 8.0 H, Eosinophils (%) (Auto) 0.0, Basophils (%) (Auto) 0.7, Neutrophils # (Auto) 5.7, Lymphocytes # (Auto) 1.2 L, Monocytes # (Auto) 0.6, Eosinophils # (Auto) 0.0, Basophils # (Auto) 0.1, Calcium Level 8.0 L, Aspartate Amino Transf (AST/SGOT) 19, Alanine Aminotransferase (ALT/SGPT) 20, Alkaline Phosphatase 117, Total Bilirubin 0.2, Total Protein 6.2 L, Albumin 2.4 L Vital Signs Date Time Temp Pulse Resp B/P (MAP) Pulse Ox O2 Delivery O2 Flow Rate FiO2 05/23/18 07:58 78 105/60 05/23/18 06:00 97.0 16 99 I&O- Last 24 Hours up to 6 AM 05/23/18 06:00 Intake Total 1790 ml Output Total 100 ml Balance 1690 ml CRISPIN PIERCE MD May 23, 2018 13:15
[2018-05-23] MEDS ORDERED: FECAL MICROBIOTA PREPARATION 30 ML BTL (J3590) XX ONE (13:45)
[2018-05-23 14:00] VITALS: BP 107/51
--- NOTE | 2018-05-23 20:12 | CR.PDOC ---
General Date of Consultation: May 23, 2018 Referring Provider: CRISPIN PIERCE MD Attending Physician: LAN HARRIS MD Consultation Primary physician/ hospitalist: Dr. Pierce. Reason for consult: Chronic diarrhea with C. difficile. HPI: 62 year old male with HTN, DM type 2, HLD, CAD s/p CABG x 2, PCI (last in Jan 2018 in [facility], on ASA and plavix), CHF with decreased EF, was recently hospitalized in [facility] for chest pain, Had urgent cardiac cath, no obstruction, progressively worsening renal function and start on dialysis since Feb 2018, ( currently HD access though right perma cath), recent hospitalization with multiple complications, hemodialysis catheter infection that was treated with broad-spectrum antibiotics, he then developed severe diarrhea, fever, chills. noted with C. difficile diarrhea, treated with Dificid ( but for few days also on oral vancomycin for unclear reasons), and Gi was consulted for Fecal transplant. Patient reports since starting his therapy, his diarrhea frequency improved slightly with today having atleast 6 bowel movements ( patient noted down the total number of bowel movements). Patient had improving WBC counts. Patient was seen by ID as well. Pertinent negative GI symptoms: Patient denies nausea, vomiting, diarrhea, loss of appetite, early satiety or unintentional weight loss. No history of hematemesis, melena. Review of Systems: GI: as stated above CVS: chest pain in past, no leg swelling. 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 Skin: No rash : Patient is anuric ENT: No ear discharge/ pain, No dysphagia. Eyes: No photophobia. Home medications: reviewed. Antithrombotic agents -aspirin and Plavix Medical h/o: As above. Surgical h/o: None on abdomen. Social h/o: Alcohol-denies, tobacco-prior smoker, IVDA/ drugs-denies. Family h/o of GI cancers - None Prior Endoscopies: --- EGD -showed 5 years ago when he had CABG and upper GI bleeding. in [facility] --- Colonoscopy - None but patient had CT colography 2-3 years ago done out side -- normal. Prior GI evaluation: None in [facility]. Exam: Vitals: reviewed General: Alert and oriented x 3, Mild distress; HEENT: NO pallor, no icterus. Normal oropharynx, NO cervical lymph nodes. Chest: symmetric with bilateral clear air entry, CVS: S1, S2 heard, normal, no murmurs . Abdomen: non-distended, Moderate obese, epigastric laparoscopic scars, soft, non-tender, no palpable masses, normal bowel sounds heard. Rectal exam: Patient refused Extremities: no pedal edema, pulses palpable. ORNAMENTAL IRONWORKER: no focal motor or sensory deficits. Moves all extremities Skin: no rash. Labs: reviewed. Imaging tests: reviewed. Impression: - Severe C. difficile diarrhea treated with Dificid with some improvement but persistent diarrhea with upto 5-6 bowel movements daily. - No abdominal pain currently. Recommendations: - Patient educated about the test results, possible differential diagnoses and All questions answered. - Discussed all the options of therapy for C. difficile diarrhea. - Patient wanted to try the IV medication - Zinplava ( bezlotoxumab) as recommended by ID, as he is high risk for any endoscopic procedure for fecal transplant. - Please follow up with ID recommendations. - If patient has recurrent or persistent C. difficile then in that scenario will place NG tube with fecal transplant as last resort if needed and if patient cannot undergo anesthesia procedure. - Recall GI if any change in status. Plan of care discussed with patient and primary team. Patient verbalized understanding and agreed with the plan. Allergies Coded Allergies: Shellfish Allergy (Verified Allergy, Unknown, 06/28/12) Contrast Media (Unverified Adverse Reaction, Mild, KIDNEY PROBLEMS, 04/24/18) Hydralazine (Unverified Adverse Reaction, Mild, dizziness, 04/24/18) Home Medications Scheduled (Katya Wilde) 300 Unit/Ml Inj, 70 UNIT SC QHS, (Reported) (Folic Acid) 800 Mcg Cap, 2,400 MCG PO DAILY, (Reported) Aspirin (Aspirin 81) 81 Mg Tab, 81 MG PO DAILY, (Reported) Calcitriol (Calcitriol) 0.25 Mcg Cap, 0.25 MCG PO DAILY, (Reported) Carvedilol (Carvedilol) 3.125 Mg Tab, 3.125 MG PO BID, (Reported) Cholecalciferol (Vitamin D3) 1,000 Unit Tab, 2,000 UNIT PO DAILY, (Reported) Clopidogrel Bisulfate (Clopidogrel) 75 Mg Tab, 75 MG PO QHS, (Reported) Febuxostat (Uloric) 80 Mg Tab, 80 MG PO QHS, (Reported) Fidaxomicin (Dificid) 200 Mg Tab, 1 TAB PO BID for 4 Days, #8 Gabapentin (Gabapentin) 100 Mg Cap, 100 MG PO QHS, (Reported) Insulin Human Regular (Humulin R) 1 Units/0.01 Ml Soln, 0 SC ACHS, (Reported) PER SLIDING SCALE Melatonin (Melatonin) 5 Mg Tab, 5 MG PO QHS, (Reported) Midodrine HCl (Midodrine HCl) 5 Mg Tab, 5 MG PO 3XW, (Reported) MON,WED,FRI Pantoprazole Sodium (Pantoprazole Sodium) 40 Mg Tab, 40 MG PO BID, (Reported) Pravastatin Sodium (Pravastatin Sodium) 80 Mg Tab, 80 MG PO QHS, (Reported) Prednisone (Prednisone) 2.5 Mg Tab, 2.5 MG PO DAILY, (Reported) Ropinirole Hydrochloride (Ropinirole HCl) 1 Mg Tab, 1 MG PO QHS, (Reported) Sacubitril/Valsartan (Entresto 24-26 mg) 1 Tab Tab, 1 TAB PO BID, (Reported) Thiamine HCl (B-1) 250 Mg Tab, 250 MG PO DAILY, (Reported) Scheduled PRN Acetaminophen (Acetaminophen) 500 Mg Tab, 1,000 MG PO BID PRN for PAIN, (Reported) Bisacodyl (Dulcolax) 5 Mg Tab, 5 MG PO DAILY PRN for CONSTIPATION, (Reported) Docusate Sodium (Colace) 100 Mg Cap, 100 MG PO BID PRN for CONSTIPATION, (Reported) Linaclotide Base (Linzess) 290 Mcg Cap, 290 MCG PO DAILY PRN for CONSTIPATION, (Reported) Nitroglycerin (Nitrostat) 0.4 Mg Subl, 0.4 MG SL NITRO PRN for CHEST PAIN, (Reported) Ondansetron HCl (Zofran) 4 Mg Tab, 4 MG PO Q8H PRN for NAUSEA, (Reported) Polyethylene Glycol (Miralax) 1 Pow Pow, 17 GM PO DAILY PRN for CONSTIPATION, (Reported) Senna (Senna-Lax) 8.6 Mg Tab, 1 TAB PO BID PRN for CONSTIPATION, (Reported) Simethicone (Simethicone) 80 Mg Chew, 80 MG PO Q6H PRN for GAS PAIN, (Reported) LAN HARRIS MD May 23, 2018 20:12
[2018-05-23] MEDS: GABAPENTIN 100 MG CAP PO SCH (20:27)
[2018-05-23] MEDS: CLOPIDOGREL 75 MG TAB PO SCH (20:27)
[2018-05-23] MEDS: PRAVASTATIN 20 MG TAB PO SCH (20:28)
[2018-05-23] MEDS: rOPINIRole 1MG TAB PO SCH (20:28)
[2018-05-23] MEDS: LEVEMIR (INSULIN DETEMIR) 1 UNITS/0.01ML SC SCH (20:29)
[2018-05-23] MEDS: FEBUXOSTAT 40 MG TABLET (ULORIC) PO SCH (20:29)
[2018-05-23 22:00] VITALS: BP 141/75
[2018-05-24 06:00] VITALS: BP 104/55
[2018-05-24 06:15] LABS: BASO % 0.4 % (0.0-1.0); HEMATOCRIT 26.1 % (42.0-52.0); HEMOGLOBIN 7.9 g/dl (13.5-17.5); LYMPH # 1.2 10^3/uL (1.5-4.5); LYMPH % 15.8 % (24.0-44.0); MEAN CORPUSCULAR HEMOGLOBIN 30.2 pg (27.0-33.0); MEAN CORPUSCULAR HGB CONC 30.3 g/dl (32.0-36.5); MEAN CORPUSCULAR VOLUME 99.6 fl (80.0-96.0); MONO # 0.7 10^3/uL (0.0-0.8); MONO % 8.9 % (0.0-5.0); NEUTROPHILS # 5.7 10^3/uL (1.8-7.7); NEUTROPHILS % 74.1 % (36.0-66.0); PLATELET COUNT, AUTOMATED 205 10^3/uL (150-450); RED BLOOD COUNT 2.62 10^6/uL (4.30-6.10); WHITE BLOOD COUNT 7.7 10^3/uL (4.0-10.0)
[2018-05-24] MEDS: CALCITRIOL 0.25 MCG CAP (S0169) PO SCH (06:37)
[2018-05-24] MEDS: LACTOBACILLUS ACIDOPHILUS CAP (BACID) PO SCH ×3 (06:37→21:47)
[2018-05-24] MEDS: ASPIRIN 81 MG ENTERIC TAB PO SCH (06:38)
[2018-05-24] MEDS: ENTRESTO 24-26MG TABLET (SACUBITRIL/VALSARTAN) PO SCH ×3 (06:39→21:00)
[2018-05-24] MEDS: THIAMINE 100 MG TAB PO SCH (06:39)
[2018-05-24 06:40] LABS: ALBUMIN 2.4 GM/DL (3.2-5.2); BILIRUBIN,TOTAL 0.2 MG/DL (0.2-1.0); CALCIUM LEVEL 7.9 MG/DL (8.8-10.2); CREATININE FOR GFR 4.28 MG/DL (0.70-1.30); GLOMERULAR FILTRATION RATE 15.2 (>49); POTASSIUM SERUM 3.4 MEQ/L (3.5-5.1); TOTAL PROTEIN 6.6 GM/DL (6.4-8.2)
[2018-05-24] MEDS: VITAMIN D 1,000 INTERNATIONAL UNITS TABLET PO SCH (06:40)
[2018-05-24] MEDS: predniSONE 2.5 MG TAB PO SCH (06:40)
[2018-05-24] MEDS: CARVedilol 3.125 MG TAB PO SCH ×2 (06:41→21:47)
[2018-05-24] MEDS: HEPARIN SOD (PORCINE) 5000 UNITS/ML VIAL SQ SCH ×2 (06:41→21:00)
[2018-05-24] MEDS: PANTOPRAZOLE 40MG TAB (PROTONIX) PO SCH ×2 (06:41→21:44)
--- NOTE | 2018-05-24 07:21 | IPN ---
DATE OF SERVICE: 05/23/2018 SUBJECTIVE: Patient was seen and examined at the bedside today morning. Patient reports that he is still having loose bowel movements. He is currently on Dificid. He is otherwise afebrile and hemodynamically stable. His last dialysis was on Wednesday. OBJECTIVE: Vital signs: Temperature is 97 degrees Fahrenheit, blood pressure 107/51, pulse 78, respiratory rate of 18, saturating 99% on room air. Intake and output: Urine output recorded as 225 mL. So far weight on the bed scale is not available. PHYSICAL EXAMINATION: General: Patient is awake, alert, oriented times three, sitting up in the bed, no apparent distress. Head and neck exam: Extraocular muscles intact. Pupils equally round and reactive to light. Mucous membranes are moist. Neck is supple, there is mildly elevated jugular venous distention (JVD). Cardiovascular: S1, S2. Left sided AICD is noted. 1+ edema of the bilateral lower extremities. Respiratory: Chest is clear to auscultation bilaterally. Bilateral equal air entry. No rales or rhonchi. Abdomen is soft, positive bowel sounds. There is a mild amount of abdominal wall edema. Musculoskeletal: No clubbing or cyanosis. Pulses are 2+. Central nervous system: No focal deficit. Power is 5/5 in all extremities. LAB REVIEW: CBC showed a WBC of 7.7, hemoglobin 9.3, platelets are 260. BMP showed sodium 138, potassium 3.4, chloride 103, bicarbonate 26, BUN 38, creatinine 3.9. CURRENT INPATIENT MEDICATIONS: Patient's medications were all reviewed by me. There is no change in the medications today as compared with yesterday. ASSESSMENT AND PLAN: 1. Endstage renal disease on hemodialysis. Patient's dialysis days are Wednesday, , Wednesday. Volume status is optimal. Next hemodialysis will be tomorrow as per his regular dialysis. 2. Chronic systolic congestive heart failure. Volume status is optimal at this time. Patient is having a lot of diarrhea. Patient is not requiring a lot of fluid removal. 3. Anemia and endstage renal disease. Hemoglobin is suboptimal. If hemoglobin drops below 8, patient will be given packed red blood cell transfusion. 4. Clostridium difficile colitis diarrhea. Patient is still having diarrhea. He is currently on Dificid. He will probably need fecal transplant. Gastrointestinal (GI) has already been called. The rest of the management is as per infectious disease (ID) recommendations.
--- NOTE | 2018-05-24 07:39 | CR ---
DATE OF CONSULTATION: 05/23/2018 Asked to consult by hospitalist for evaluation of patient with C difficile colitis for the past 10 days treated with a daptomycin with persistent diarrhea. HISTORY OF PRESENT ILLNESS: Mr. Clark is a 62-year-old gentleman with a history of hypertension, diabetes and recent hospitalization for the past three weeks with multiple complications and previous admission, most prominently he had a probably a hemodialysis catheter infection that was treated with broad-spectrum antibiotics. He then developed pancytopenia which was felt to be probably viral in origin. The patient had been on the hospital with a multiple antibiotics discharge on 05/06. The patient is admitted 5 days later with severe diarrhea, fever, chills. His temperature on admission was 101.9. The patient states he was having at least 28 bowel movements a day with incontinence. He definitely is feeling better but he still has at least 5 b bowel movements today. He has had no more fevers. White count has improved. He has no nausea, vomiting. His abdominal pain only occurs when he has to have a bowel movement. White count on admission was 25,000. PAST MEDICAL HISTORY: Significant for end-stage renal disease on hemodialysis through a right subclavian hemodialysis catheter, remote history of C difficile colitis, coronary artery disease status post CABG and multiple stents, hyperlipidemia, diabetes, history of gout. PAST SURGICAL HISTORY: CABG, back surgery, cholecystectomy, cataract surgery left hip surgery and pacemaker. ALLERGIES Contrast media hydralazine and shellfish. MEDICATIONS: Vancomycin 125 mg by mouth every 6 hours was given to him from 05/21-05/23 48 hours overlapping was to Daptomycin. Patient received 200 mg by mouth twice a day 05/13/-05/23, Aranesp 200 mg IV with hemodialysis, Insulin 50 units at bedtime, Tylenol as needed, midodrine 5 mg Wednesday, , Wednesday, aspirin 81 mg daily, vitamin D 2,000 units daily, Prednisone 2.5 mg daily, thiamine 250 mg daily, calcitriol 0.25 mg daily, probiotic 1 tablet by mouth three times a day, albuterol/Atrovent nebs three times a day, Uloric 81 mg by mouth at bedtime, gabapentin 100 mg at bedtime. Coreg 3.125 mg two twice a day, nitroglycerin as needed. LABORATORY DATA: White count is 7.7, hemoglobin 8.3, hematocrit 26.3, platelets 260, 75% neutrophils, 15% lymphocytes, 8% monocytes. Sodium 138, potassium 3.4, chloride 103. Bicarbonate 26 cm 38, creatinine 3.92, glucose 137, calcium 8, AST 19, ALT 20, alk phos 117, albumin 2.4. IMAGING STUDIES: CT abdomen and pelvis was done on 05/11, 05/16, and 05/22. The results from 05/22 has not been read yet. CT does not show evidence of bowel obstruction or free fluid on 05/11. No adenopathy 05/16, CT abdomen showed mucosa thickening and pericolonic inflammatory changes involving the mid transverse colon throughout the rectosigmoid consistent with acute colitis. No bowel obstruction. On physical exam temperature is 97, pulse 78, respirations 18, blood pressure 107/51, O2 sat 99% on room air. Heart: Normal S1-S2 with loss ejection murmur 2/6. Lungs are clear. No wheezes or rhonchi. Abdomen is soft, nontender visceromegaly. Back: No CVA tenderness. Extremities: Trace edema right chest hemodialysis catheter. IMPRESSION: This is a 62-year-old gentleman who has had multiple courses of IV antibiotics and now Keegan admitted with C. Difficile colitis that has slowly responded to treatment with decrease in bowel movement normalizing white count and resolution of fever. The patient still has diarrhea but that has definitely at least 50% improved. PLAN: There are two choices of treatment at this point. 1-We could continue with FIDAXOMICIN total of 14 days followed by tapering schedule of every other day for 20 days along with IV infusion of bezlotoxumab at a dose of 10 mg/kg if no contraindication from cardiology with congestive heart failure. 2-Second option would be to do a stool transplantation and home vancomycin at least 24-48 hours. If the patient is to have a colonoscopy was also suggest doing an endoscopy to find a source of the previous episode of GI bleeding in the consider decreasing his dose of UTIs to decrease chance of recurrent C diff. The patient was also encouraged to increase his intake of yogurt and continue probiotics. MTDD
[2018-05-24] MEDS: HumaLOG INSULIN (NovoLOG) PER UNIT SC SCH ×3 (08:14→17:47)
[2018-05-24] MEDS ORDERED: HEPARIN 1,000 UNITS/ML 10ML VIAL (FOR RADIOLOGY& DIALYSIS ONLY) XX ONE (11:00)
[2018-05-24] MEDS ORDERED: HEPARIN 1,000 UNITS/ML 10ML VIAL (FOR RADIOLOGY& DIALYSIS ONLY) IV ONE (11:00)
[2018-05-24] MEDS: MIDODRINE 5 MG TAB PO SCH ×2 (11:49→17:48)
[2018-05-24] MEDS ORDERED: FECAL MICROBIOTA PREPARATION 30 ML BTL (J3590) XX ONE (13:00)
[2018-05-24] MEDS: FIDAXOMICIN 200 MG TAB (DIFICID) PO SCH ×2 (16:30→21:44)
[2018-05-24 17:00] VITALS: BP 128/68
[2018-05-24 17:03] LABS: C REACTIVE PROTEIN QUANTITATIV 1.31 MG/DL (0.00-0.30)
--- NOTE | 2018-05-24 19:55 | IPN ---
DATE: 05/24/2018 The patient is seen and examined. He seems to be having increased strength, ambulating with a walker. Denies any chest pain, pressure or discomfort. Reported bowel movement with stool more formed and chunky. VITAL SIGNS: Temperature 98.2, pulse 81, respirations 18, blood pressure 104/55, pulse oximetry 98% on room air. LABORATORY DATA: WBC 7.7, hemoglobin and hematocrit 7.9/26.1, platelets 205. Chemistry: Sodium 139, potassium 3.4, chloride 104, bicarbonate 27, BUN 51, creatinine 4.28. PHYSICAL EXAMINATION: GENERAL: The patient is comfortable and in no acute distress. HEENT: Moist mucous membranes. NECK: Supple. CARDIAC: Regular. S1, S2. 2/6 systolic murmur. ABDOMEN: Soft, nontender. Positive bowel sounds. EXTREMITIES: No clubbing, cyanosis or edema. ASSESSMENT AND PLAN: This is a 62-year-old male patient with underlying medical history of end stage renal disease on dialysis Wednesday, and Wednesday, coronary artery disease with coronary artery bypass graft (CABG) with multiple stents, systolic congestive heart failure (CHF) with ejection fraction of 35%, severe global hypokinesis, chronic obstructive pulmonary disease (COPD) on 2 liters of oxygen at night and on steroids at home, dyslipidemia, diabetes, also with pacemaker, history of gout. He was recently treated for altered mental status, fevers and pneumonia, discharged home. Admitted this time with diarrhea and found to have Clostridium (C.) difficile colitis. 1. Clostridium (C.) difficile colitis. Consult infectious disease and GI. Given the patient has severe cardiac issues, recommend against procedures that place the patient in high risk of having an adverse cardiac event. Continue Dificid, Zinplava. piece dye worker consulted for Zinplava as an outpatient, recommended by Dr. Ellison. The patient's bowel movements have improved. Continue probiotics. 2. Elevated troponin. Electrocardiogram (EKG) is appreciated. Cardiology consulted. 3. Episode of hypotension and history of coronary artery disease with coronary artery bypass graft (CABG) and multiple stents. Continue Entresto, aspirin, Coreg, Plavix, midodrine, pravastatin. Further recommendations as per cardiology. The patient denies any chest pain. 4. End stage renal disease. Continue dialysis as per nephrology. 5. Systolic congestive heart failure (CHF) with ejection fraction of 35%. Euvolemic at this time. Fluid management as per nephrology. 6. Diabetes mellitus. Basal bolus insulin. 7. Dyslipidemia. Continue statin. 8. Diabetic neuropathy. Continue Neurontin. 9. Gastroesophageal reflux disease (GERD). Continue proton pump inhibitor. 10. History of restless legs. Continue current medications. 11. Pacemaker mediated tachycardia. Discussed with Dr. Diop, who does not recommend intervention at this time. Further recommendations as per cardiology. 12. Anemia of chronic disease. Transfuse 1 unit of packed red blood cells. Further recommendations as per nephrology. 13. Deep vein thrombosis (DVT) prophylaxis. Heparin subcutaneously. DISPOSITION: Physical therapy. Final infectious disease recommendations. Likely discharge in the next 2 days.
[2018-05-24] MEDS: rOPINIRole 1MG TAB PO SCH (21:44)
[2018-05-24] MEDS: GABAPENTIN 100 MG CAP PO SCH (21:44)
[2018-05-24] MEDS: PRAVASTATIN 20 MG TAB PO SCH (21:44)
[2018-05-24] MEDS: CLOPIDOGREL 75 MG TAB PO SCH (21:46)
[2018-05-24] MEDS: FEBUXOSTAT 40 MG TABLET (ULORIC) PO SCH (21:47)
[2018-05-24] MEDS: LEVEMIR (INSULIN DETEMIR) 1 UNITS/0.01ML SC SCH (21:48)
[2018-05-24 22:00] VITALS: BP 115/68
--- NOTE | 2018-05-25 00:18 | IPN ---
DATE: 05/24/2018 SUBJECTIVE: The patient was seen and examined at the bedside today, morning. He is afebrile, hemodynamically stable. He continues to have loose stools. He was seen by infectious disease, and they plan to continue the Dificid and start him on immunoglobulin. Plan to do the fecal transplant has been postponed. Today is the patient's regular day of dialysis. OBJECTIVE: VITAL SIGNS: Temperature is 98.2 degrees Fahrenheit, blood pressure 104/55, pulse is 81, respiratory rate of 18, saturating 98% on room air. INTAKE/OUTPUT: The patient is still having loose bowel movements. He had 12 bowel movements yesterday, 7 bowel movements so far today since overnight. Weight on the bed scale is not available. PHYSICAL EXAMINATION: GENERAL: The patient is awake, alert, oriented times three, sitting up in the bed in no apparent distress. HEAD AND NECK EXAM: Extraocular muscles intact. Pupils equally round and reactive to light. Mucous membranes are moist. Neck is supple. There is mild elevation of jugular venous distention (JVD). CARDIOVASCULAR: S1, S2, left-sided automatic implantable cardioverter defibrillator (AICD). Trace edema of the bilateral lower extremities. RESPIRATORY: Chest is clear to auscultation bilaterally. Bilateral equal air entry. No rales or rhonchi. ABDOMEN: Abdomen is soft, obese, positive bowel sounds. Nontender. MUSCULOSKELETAL: No clubbing or cyanosis. Pulses are 2+. CENTRAL NERVOUS SYSTEM: No focal deficit. Power is 5/5 in all extremities. LAB REVIEW: CBC showed a WBC of 7.7, hemoglobin is 7.9, platelets are 205. BMP showed sodium 139, potassium 3.4, chloride 104, bicarbonate 27, BUN 51, creatinine is 4.2, calcium is 7.9, albumin is 2.4. CURRENT INPATIENT MEDICATIONS: The patient's medications were all reviewed by me. There is no change in the medications today as compared with yesterday. ASSESSMENT AND PLAN: 1. End-stage renal disease, on hemodialysis. The patient's regular dialysis days are Wednesday, , Wednesday. He will be dialyzed today and ultrafiltration goal will be around 1.5 liters as tolerated by his blood pressure. 2. Chronic systolic congestive heart failure. Volume status is controlled with hemodialysis. He is having a lot of diarrhea, so ultrafiltration goal will be only 1.5 liters. 3. Anemia in end-stage renal disease. The patient's hemoglobin has dropped to 7.9. He will be given a packed red blood cell (PRBC) transfusion with hemodialysis today. 4. Clostridium difficile colitis diarrhea. The patient is still having diarrhea despite being on Dificid. Infectious disease wants to continue the Dificid and start the patient on Zinplava as outpatient. He is not a candidate for a fecal transplant because of extensive cardiac history, and he is not cleared by cardiology or anesthesia.
[2018-05-25 06:00] VITALS: BP 111/65
[2018-05-25 06:26] LABS: BASO # 0.1 10^3/uL (0.0-0.2); BASO % 0.6 % (0.0-1.0); HEMATOCRIT 29.7 % (42.0-52.0); HEMOGLOBIN 9.2 g/dl (13.5-17.5); LYMPH # 1.1 10^3/uL (1.5-4.5); MEAN CORPUSCULAR HEMOGLOBIN 30.5 pg (27.0-33.0); MEAN CORPUSCULAR VOLUME 98.3 fl (80.0-96.0); MONO # 0.9 10^3/uL (0.0-0.8); MONO % 10.7 % (0.0-5.0); NEUTROPHILS # 6.3 10^3/uL (1.8-7.7); PLATELET COUNT, AUTOMATED 193 10^3/uL (150-450); RED BLOOD COUNT 3.02 10^6/uL (4.30-6.10); WHITE BLOOD COUNT 8.4 10^3/uL (4.0-10.0)
--- NOTE | 2018-05-25 06:29 | IPN ---
DATE OF VISIT: 05/24/2018 HISTORY OF PRESENT ILLNESS: Solitario is doing fairly well from yesterday in 24 hours. He had 10 bowel movements today. He has had four bowel movements until 06:00 p.m.. He only has abdominal cramps when he has to go to the bathroom. He has some more formed stool and it is not all diarrhea. He denies any chest pain or shortness of breath. PHYSICAL EXAMINATION: He has been afebrile on physical exam. Heart: Normal S1-S2 with a systolic ejection murmur 2/6. Lungs: Lungs are clear. No wheezes, rales or rhonchi. Abdomen: Soft, nontender. Bowel sounds present. No hepatosplenomegaly. Extremities: No clubbing, cyanosis or edema. Some ecchymosis and venous stasis changes. IMPRESSION: 1. Clostridium (C) difficile colitis. Fidaxomicin has been restarted. Colonoscopy with stool transplantation is currently on hold as the patient has multiple cardiac issues and the decision was made not to pursue with colonoscopy at this point due to his improvement. The other issue is side effects of Zinplava being worsening of congestive heart failure. The patient's ejection fraction is 30-35% and there concern about side effects of medications. Since he is clinically improving I would suggest doing a fidaxomicin taper and holding off on any other treatments at this point. The patient was also encouraged to take probiotics and drink kefir yogurt. 2. History of coronary artery disease with elevated troponin. Status post multi stenting. The patient's neon tube pumper is Dr. Alvarado but consultation has been ordered for inpatient cardiology. LABORATORY DATA: White count of 7.7, hemoglobin 7.9, hematocrit 26.1, platelets 205. Sodium 139, potassium 3.4, chloride 104, bicarb 27, BUN 51, creatinine 4.28, glucose 223. Calcium 7.9, AST 15, ALT 20, alk phos 110, CRP 1.31, troponin highest was 1.1. IMPRESSION: Clostridium (C) difficile colitis: On to fidaxomicin that was restarted today. Will continue for daily dosing one week and then every other day for two weeks upon discharge. PLAN: Obtain prior authorization for fidaxomicin upon discharge. Hold off on infusion of Zinplava as the patient has severe congestive heart failure and is reluctant about this infusion at this time which I agree with. Discontinue stool transplantation. The patient was advised to avoid any milk products as he may have lactose intolerance with severe diarrhea. Kefir and take probiotics.
[2018-05-25 07:02] LABS: ALBUMIN 2.5 GM/DL (3.2-5.2); BILIRUBIN,TOTAL 0.4 MG/DL (0.2-1.0); CALCIUM LEVEL 8.6 MG/DL (8.8-10.2); CREATININE FOR GFR 3.04 MG/DL (0.70-1.30); GLOMERULAR FILTRATION RATE 22.5 (>49); POTASSIUM SERUM 3.5 MEQ/L (3.5-5.1); TOTAL PROTEIN 6.6 GM/DL (6.4-8.2)
[2018-05-25] MEDS: HumaLOG INSULIN (NovoLOG) PER UNIT SC SCH ×3 (07:34→18:10)
[2018-05-25] MEDS: predniSONE 2.5 MG TAB PO SCH (10:25)
[2018-05-25] MEDS: THIAMINE 100 MG TAB PO SCH (10:25)
[2018-05-25] MEDS: LACTOBACILLUS ACIDOPHILUS CAP (BACID) PO SCH ×3 (10:25→21:58)
[2018-05-25] MEDS: PANTOPRAZOLE 40MG TAB (PROTONIX) PO SCH ×2 (10:25→21:59)
[2018-05-25] MEDS: CALCITRIOL 0.25 MCG CAP (S0169) PO SCH (10:26)
[2018-05-25] MEDS: ASPIRIN 81 MG ENTERIC TAB PO SCH (10:26)
[2018-05-25] MEDS: ENTRESTO 24-26MG TABLET (SACUBITRIL/VALSARTAN) PO SCH ×2 (10:26→21:58)
[2018-05-25] MEDS: CARVedilol 3.125 MG TAB PO SCH ×2 (10:26→21:59)
[2018-05-25] MEDS: VITAMIN D 1,000 INTERNATIONAL UNITS TABLET PO SCH (10:26)
[2018-05-25] MEDS: HEPARIN SOD (PORCINE) 5000 UNITS/ML VIAL SQ SCH ×2 (10:27→21:59)
[2018-05-25] MEDS: FIDAXOMICIN 200 MG TAB (DIFICID) PO SCH ×2 (12:19→22:27)
[2018-05-25 13:45] VITALS: BP 107/58
--- NOTE | 2018-05-25 14:45 | IPN ---
DATE OF SERVICE: 05/25/2018 SUBJECTIVE: The patient was seen and examined at the bedside today morning. The patient is afebrile, hemodynamically stable. He reports that he continues to have loose stools, however, the frequency of the loose stools is slightly better today as compared with yesterday. The patient was given one unit of PRBC transfusion yesterday and after that he felt some shortness of breath. He was dialyzed yesterday as well and about 1.5 liters of fluid was removed. OBJECTIVE: VITAL SIGNS: Temperature is 97.9 degrees Fahrenheit, blood pressure 111/65, pulse is 65, respiratory rate of 18, saturating 95% on room air. INTAKE/OUTPUT: Urine output recorded as 600 mL yesterday. No urine output recorded today. Ultrafiltration with hemodialysis was 1.5 liters. Weight on the bed scale is not available. PHYSICAL EXAMINATION: GENERAL: The patient is awake, alert, oriented times three, sitting up in the sofa in no apparent distress. HEAD AND NECK EXAM: Extraocular muscles intact. Pupils equally round and reactive to light. Mucous membranes are moist. Neck is supple. Mildly elevated jugular venous distention (JVD). CARDIOVASCULAR: S1, S2. Left-sided automatic implantable cardioverter defibrillator (AICD) is noted. 1+ edema of the bilateral lower extremities. RESPIRATORY: Decreased breath sounds at the bases with mild respiratory crackles at the bases. ABDOMEN: Abdomen is soft, obese. Positive bowel sounds. Mild amount of abdominal wall edema was noted. MUSCULOSKELETAL: No clubbing or cyanosis. Pulses are 2+. CENTRAL NERVOUS SYSTEM: No focal deficit. Power is 5/5 in all extremities. LAB REVIEW: CBC showed a WBC of 8.4, hemoglobin 9.2, and platelets are 193. BMP showed sodium 137, potassium 3.5, chloride 101, bicarbonate 29, BUN 27, creatinine is 3, glucose 92, calcium is 8.6, and albumin is 2.5. CURRENT INPATIENT MEDICATIONS: The patient's medications were all reviewed by me. There is no change in the medications today as compared with yesterday. ASSESSMENT AND PLAN: 1. End-stage renal disease on hemodialysis. The patient's regular dialysis days are Wednesday, , Wednesday. He was dialyzed yesterday. However, because of the edema and shortness of breath after transfusion, I am going to do an extra session of ultrafiltration today. I will try to remove about 2 liters of fluid as tolerated by his pressure. 2. Chronic systolic congestive heart failure. As mentioned above, volume status is decompensated. He is getting extra ultrafiltration today in the afternoon. 3. Anemia and end stage renal disease. The patient's hemoglobin dropped yesterday. He got 1 unit of PRBC transfusion yesterday. He is also on Aranesp 200 mcg with hemodialysis. 4. Clostridium difficile colitis diarrhea. The patient has been restarted on Dificid. Initially, there was a plan to start him on Zinplava, however, because of history of congestive heart failure, the decision to give him Zinplava has been changed now. Fecal transplant was also canceled because of extensive cardiac history. Continue the Dificid taper as per infectious disease.
--- NOTE | 2018-05-25 17:37 | IPNPDOC ---
Text Note Date of Service The patient was seen on 05/25/18. NOTE The patient is seen and examined. Denies any chest pain, pressure or discomfort. Reported bowel movement with stool more formed and chunky. PHYSICAL EXAMINATION: GENERAL: The patient is comfortable and in no acute distress. HEENT: Moist mucous membranes. NECK: Supple. CARDIAC: Regular. S1, S2. 2/6 systolic murmur. ABDOMEN: Soft, nontender. Positive bowel sounds. EXTREMITIES: No clubbing, cyanosis or edema. ASSESSMENT AND PLAN: This is a 62-year-old male patient with underlying medical history of end stage renal disease on dialysis Wednesday, and Wednesday, coronary artery disease with coronary artery bypass graft (CABG) with multiple stents, systolic congestive heart failure (CHF) with ejection fraction of 35%, severe global hypokinesis, chronic obstructive pulmonary disease (COPD) on 2 liters of oxygen at night and on steroids at home, dyslipidemia, diabetes, also with pacemaker, history of gout. He was recently treated for altered mental status, fevers and pneumonia, discharged home. Admitted this time with diarrhea and found to have Clostridium (C.) difficile colitis. 1. Clostridium (C.) difficile colitis. Consult infectious disease and GI. Given the patient has severe cardiac issues, recommend against procedures that place the patient in high risk of having an adverse cardiac event. Continue Dificid. F/U ID recommended by Dr. Ellison. The patient's bowel movements have improved. Continue probiotics. 2. Elevated troponin. Electrocardiogram (EKG) is appreciated. Cardiology consulted. 3. Episode of hypotension and history of coronary artery disease with coronary artery bypass graft (CABG) and multiple stents. Continue Entresto, aspirin, Coreg, Plavix, midodrine, pravastatin. Further recommendations as per cardiology. The patient denies any chest pain. 4. End stage renal disease. Continue dialysis as per nephrology. 5. Systolic congestive heart failure (CHF) with ejection fraction of 35%. Euvolemic at this time. Fluid management as per nephrology via HD 6. Diabetes mellitus. Basal bolus insulin. 7. Dyslipidemia. Continue statin. 8. Diabetic neuropathy. Continue Neurontin. 9. Gastroesophageal reflux disease (GERD). Continue proton pump inhibitor. 10. History of restless legs. Continue current medications. 11. Pacemaker mediated tachycardia. Discussed with Dr. Diop, who does not recommend intervention at this time. Further recommendations as per cardiology. 12. Anemia of chronic disease. Transfuse 1 unit of packed red blood cells. Further recommendations as per nephrology. addition HD today for fluid overload 13. Deep vein thrombosis (DVT) prophylaxis. Heparin subcutaneously. DISPOSITION: Passed physical therapy. Final infectious disease recomme ndations. clinical improvement of diarrhea VS,Fishbone, I+O VS, Fishbone, I+O Laboratory Tests 05/25/18 06:00 Red Blood Count 3.02 L, Mean Corpuscular Volume 98.3 H, Mean Corpuscular Hemoglobin 30.5, Mean Corpuscular Hemoglobin Concent 31.0 L, Red Cell Distribution Width 21.4 H, Neutrophils (%) (Auto) 75.0 H, Lymphocytes (%) (Auto) 13.0 L, Monocytes (%) (Auto) 10.7 H, Eosinophils (%) (Auto) 0.0, Basophils (%) (Auto) 0.6, Neutrophils # (Auto) 6.3, Lymphocytes # (Auto) 1.1 L, Monocytes # (Auto) 0.9 H, Eosinophils # (Auto) 0.0, Basophils # (Auto) 0.1, Calcium Level 8.6 L, Aspartate Amino Transf (AST/SGOT) 14, Alanine Aminotransferase (ALT/SGPT) 19, Alkaline Phosphatase 88, Total Bilirubin 0.4 #, Total Protein 6.6, Albumin 2.5 L Vital Signs Date Time Temp Pulse Resp B/P (MAP) Pulse Ox O2 Delivery O2 Flow Rate FiO2 05/25/18 13:45 95.2 74 19 107/58 (74 98 I&O- Last 24 Hours up to 6 AM 05/25/18 06:00 Intake Total 780 ml Output Total 2100 ml Balance -1320 ml FLORENTINO MANCILLA MD May 25, 2018 17:37
[2018-05-25] MEDS: FEBUXOSTAT 40 MG TABLET (ULORIC) PO SCH (21:58)
[2018-05-25] MEDS: PRAVASTATIN 20 MG TAB PO SCH (21:58)
[2018-05-25] MEDS: rOPINIRole 1MG TAB PO SCH (21:58)
[2018-05-25] MEDS: GABAPENTIN 100 MG CAP PO SCH (21:59)
[2018-05-25] MEDS: LEVEMIR (INSULIN DETEMIR) 1 UNITS/0.01ML SC SCH (21:59)
[2018-05-25] MEDS: CLOPIDOGREL 75 MG TAB PO SCH (21:59)
[2018-05-25 22:00] VITALS: BP 115/64
[2018-05-26] MEDS: ACETAMINOPHEN 500 MG TAB PO PRN (01:58)
[2018-05-26 06:00] VITALS: BP 118/65
[2018-05-26 06:22] LABS: BASO % 0.3 % (0.0-1.0); HEMATOCRIT 28.3 % (42.0-52.0); HEMOGLOBIN 8.8 g/dl (13.5-17.5); LYMPH % 14.7 % (24.0-44.0); MEAN CORPUSCULAR HEMOGLOBIN 30.9 pg (27.0-33.0); MEAN CORPUSCULAR HGB CONC 31.1 g/dl (32.0-36.5); MEAN CORPUSCULAR VOLUME 99.3 fl (80.0-96.0); MONO # 0.6 10^3/uL (0.0-0.8); NEUTROPHILS # 5.3 10^3/uL (1.8-7.7); NEUTROPHILS % 75.6 % (36.0-66.0); PLATELET COUNT, AUTOMATED 165 10^3/uL (150-450); RED BLOOD COUNT 2.85 10^6/uL (4.30-6.10)
[2018-05-26] MEDS: CALCITRIOL 0.25 MCG CAP (S0169) PO SCH (06:28)
[2018-05-26] MEDS: LACTOBACILLUS ACIDOPHILUS CAP (BACID) PO SCH ×3 (06:28→21:00)
[2018-05-26] MEDS: CARVedilol 3.125 MG TAB PO SCH ×2 (06:28→21:02)
[2018-05-26] MEDS: ASPIRIN 81 MG ENTERIC TAB PO SCH (06:28)
[2018-05-26] MEDS: THIAMINE 100 MG TAB PO SCH (06:29)
[2018-05-26] MEDS: predniSONE 2.5 MG TAB PO SCH (06:29)
[2018-05-26] MEDS: ENTRESTO 24-26MG TABLET (SACUBITRIL/VALSARTAN) PO SCH ×2 (06:29→21:01)
[2018-05-26] MEDS: VITAMIN D 1,000 INTERNATIONAL UNITS TABLET PO SCH (06:29)
[2018-05-26] MEDS: PANTOPRAZOLE 40MG TAB (PROTONIX) PO SCH ×2 (06:29→21:00)
[2018-05-26] MEDS: HEPARIN SOD (PORCINE) 5000 UNITS/ML VIAL SQ SCH ×3 (06:30→21:02)
[2018-05-26] MEDS: FIDAXOMICIN 200 MG TAB (DIFICID) PO SCH ×2 (06:30→21:00)
[2018-05-26 06:45] LABS: ALBUMIN 2.5 GM/DL (3.2-5.2); BILIRUBIN,TOTAL 0.3 MG/DL (0.2-1.0); CALCIUM LEVEL 8.2 MG/DL (8.8-10.2); CREATININE FOR GFR 3.86 MG/DL (0.70-1.30); GLOMERULAR FILTRATION RATE 17.1 (>49); POTASSIUM SERUM 3.6 MEQ/L (3.5-5.1); TOTAL PROTEIN 6.7 GM/DL (6.4-8.2)
[2018-05-26] MEDS: HumaLOG INSULIN (NovoLOG) PER UNIT SC SCH ×3 (07:51→18:26)
[2018-05-26] MEDS: MIDODRINE 5 MG TAB PO SCH ×2 (07:51→18:27)
--- NOTE | 2018-05-26 11:27 | IPN ---
DATE OF SERVICE: 05/26/2018 SUBJECTIVE: The patient was seen and examined at the bedside today morning getting hemostasis. He is tolerating the hemodialysis procedure well. He also got a session of ultrafiltration yesterday. However, because his blood pressures were lower, he did not get a dose of midodrine. We could only remove 1 liter of fluid yesterday. The patient also reports that his loose bowel movements are getting much better, and frequency is decreasing. OBJECTIVE: VITAL SIGNS: Temperature is 97.6 degrees Fahrenheit, blood pressure 118/65, pulse is 80, respiratory rate of 20, saturating 100% on room air. INTAKE AND OUTPUT: Urine output recorded is only 100 mL. Ultrafiltration done yesterday was 1 liter. Weight in the bed scale is not available. PHYSICAL EXAMINATION: GENERAL: The patient is awake, alert, oriented times three, lying in bed, getting hemodialysis done. HEAD AND NECK EXAMINATION: Extraocular muscles intact. Pupils equally round and reactive to light. Mucous membranes are moist. Neck is supple. There is mild elevation of jugular venous distention (JVD). CARDIOVASCULAR: S1, S2. Left-sided automatic implantable cardioverter defibrillator (AICD). 1+ edema of the bilateral lower extremities. RESPIRATORY: Decreased breath sounds at the bases. Mild respiratory crackles at the bases. Otherwise, no active rales or rhonchi. ABDOMEN: Is soft, obese. Positive bowel sounds. Mild amount of abdominal wall edema. MUSCULOSKELETAL: No clubbing or cyanosis. Pulses are 2+. CENTRAL NERVOUS SYSTEM (STAFFING MGR): No focal deficit. Power is 5/5 in all extremities. LABORATORY REVIEW: Complete blood count (CBC) showed a WBC of 7, hemoglobin is 8.8, platelets are 165. Basic metabolic profile (BMP) showed sodium 138, potassium 3.6, chloride 103, bicarbonate 27, BUN 40, creatinine is 3.8, calcium is 8.2, and albumin is 2.5. CURRENT INPATIENT MEDICATIONS: The patient's medications were all reviewed by me. There is no change in the medications today as compared with yesterday. ASSESSMENT AND PLAN: 1. End-stage renal disease, on hemodialysis. The patient's regular dialysis days are Wednesday, , Wednesday. He is being dialyzed according to his regular schedule. I will try to remove at least 2.5 liters of fluid today during hemodialysis. 2. Chronic systolic congestive heart failure. Volume status is being managed with hemodialysis. Continue current dose of Entresto, carvedilol. 3. Anemia in end-stage renal disease. Continue current dose of Aranesp 200 mcg with hemodialysis. 4. Clostridium (C) difficile diarrhea. Frequency of the diarrhea is improving. He continues to be on Dificid. The rest of the management is as per infectious disease recommendations.
[2018-05-26 14:00] VITALS: BP 108/58
--- NOTE | 2018-05-26 16:05 | IPNPDOC ---
Text Note Date of Service The patient was seen on 05/26/18. NOTE The patient is seen and examined. Denies any chest pain, pressure or discomfort. Reported bowel movement with stool more formed and chunky. reported mild testicular pain. PHYSICAL EXAMINATION: GENERAL: The patient is comfortable and in no acute distress. HEENT: Moist mucous membranes. NECK: Supple. CARDIAC: Regular. S1, S2. 2/6 systolic murmur. ABDOMEN: Soft, nontender. Positive bowel sounds. EXTREMITIES: No clubbing, cyanosis or edema. : no testicular swelling, redness or lesion ASSESSMENT AND PLAN: This is a 62-year-old male patient with underlying medic al history of end stage renal disease on dialysis Wednesday, and Wednesday, coronary artery disease with coronary artery bypass graft (CABG) with multiple stents, systolic congestive heart failure (CHF) with ejection fraction of 35%, severe global hypokinesis, chronic obstructive pulmonary disease (COPD) on 2 liters of oxygen at night and on steroids at home, dyslipidemia, diabetes, also with pacemaker, history of gout. He was recently treated for altered mental status, fevers and pneumonia, discharged home. Admitted this time with diarrhea and found to have Clostridium (C.) difficile colitis. 1. Clostridium (C.) difficile colitis. Consult infectious disease and GI. Given the patient has severe cardiac issues, recommend against procedures that place the patient in high risk of having an adverse cardiac event. Continue Dificid. F/U ID recommended by Dr. Ellison. The patient's bowel movements have improved. Continue probiotics. 2. Elevated troponin. Electrocardiogram (EKG) is appreciated. Cardiology consulted. 3. Episode of hypotension and history of coronary artery disease with coronary artery bypass graft (CABG) and multiple stents. Continue Entresto, aspirin, Coreg, Plavix, midodrine, pravastatin. Further recommendations as per cardiology. The patient denies any chest pain. 4. End stage renal disease. Continue dialysis as per nephrology. 5. Systolic congestive heart failure (CHF) with ejection fraction of 35%. Euvolemic at this time. Fluid management as per nephrology via HD 6. Diabetes mellitus. Basal bolus insulin. 7. Dyslipidemia. Continue statin. 8. Diabetic neuropathy. Continue Neurontin. 9. Gastroesophageal reflux disease (GERD). Continue proton pump inhibitor. 10. History of restless legs. Continue current medications. 11. Pacemaker mediated tachycardia. Discussed with Dr. Diop, who does not recommend intervention at this time. Further recommendations as per cardiology. 12. Anemia of chronic disease. Transfuse 1 unit of packed red blood cells. Further recommendations as per nephrology. addition HD today for fluid overload 13. testicular pain, neg physical examin, US scrotal with doppler 14. Deep vein thrombosis (DVT) prophylaxis. Heparin subcutaneously. DISPOSITION: Passed physical therapy. clinical improvement of diarrhea VS,Fishbone, I+O VS, Fishbone, I+O Laboratory Tests 05/26/18 06:07 Red Blood Count 2.85 L, Mean Corpuscular Volume 99.3 H, Mean Corpuscular Hemoglobin 30.9, Mean Corpuscular Hemoglobin Concent 31.1 L, Red Cell Distribution Width 21.3 H, Neutrophils (%) (Auto) 75.6 H, Lymphocytes (%) (Auto) 14.7 L, Monocytes (%) (Auto) 9.0 H, Eosinophils (%) (Auto) 0.0, Basophils (%) (Auto) 0.3, Neutrophils # (Auto) 5.3, Lymphocytes # (Auto) 1.0 L, Monocytes # (Auto) 0.6, Eosinophils # (Auto) 0.0, Basophils # (Auto) 0.0, Calcium Level 8.2 L, Aspartate Amino Transf (AST/SGOT) 12, Alanine Aminotransferase (ALT/SGPT) 21, Alkaline Phosphatase 111, Total Bilirubin 0.3, Total Protein 6.7, Albumin 2.5 L Vital Signs Date Time Temp Pulse Resp B/P (MAP) Pulse Ox O2 Delivery O2 Flow Rate FiO2 05/26/18 14:00 96.9 78 18 108/58 (75) 100 I&O- Last 24 Hours up to 6 AM 05/26/18 06:00 Intake Total 660 ml Output Total 1110 ml Balance -450 ml FLORENTINO MANCILLA MD May 26, 2018 16:05
--- NOTE | 2018-05-26 16:13 | REP ---
High-resolution bilateral scrotal sonography: History: Testicular pain. Findings: High-resolution bilateral scrotal sonography is performed. There is no evidence of intratesticular mass on either side. Testicular Doppler flow is normal bilaterally. Resistive indices are 0.76 on the right and 0.73 on the left. Right testis measures 2.8 x 1.7 x 2.0 cm. Left testicular dimensions are 3.3 x 1.6 x 2.2 cm. There are tiny 2 mm cysts in the head of the epididymis on each side. There are small bilateral hydroceles. There is a small left-sided varicocele with evidence of a thrombosed venous component in the left-sided varicocele. Impression: Evidence of partial thrombosis in one of the veins in the left-sided varicocele. Small bilateral hydroceles. Otherwise negative scrotal sonography. Electronically Signed by Shaggy Lynn MD 05/26/2018 04:37 P
[2018-05-26] MEDS: CLOPIDOGREL 75 MG TAB PO SCH (21:00)
[2018-05-26] MEDS: FEBUXOSTAT 40 MG TABLET (ULORIC) PO SCH (21:00)
[2018-05-26] MEDS: rOPINIRole 1MG TAB PO SCH (21:00)
[2018-05-26] MEDS: GABAPENTIN 100 MG CAP PO SCH (21:00)
[2018-05-26] MEDS: PRAVASTATIN 20 MG TAB PO SCH (21:01)
[2018-05-26] MEDS: LEVEMIR (INSULIN DETEMIR) 1 UNITS/0.01ML SC SCH (21:03)
[2018-05-26 22:00] VITALS: BP 115/64
[2018-05-26] MEDS ORDERED: LOMOTIL 2.5MG/0.025MG TABLET PO ONE (22:15)
--- NOTE | 2018-05-26 23:09 | IPN ---
DATE: 05/26/2018 Mr. Clark seems to be doing better. He had about six bowel movements today. He had no abdominal pain, no nausea, vomiting. No fever or chills. His appetite is good. PHYSICAL EXAMINATION Heart: Normal S1, S2 with a systolic ejection murmur 2/6. Abdomen: Soft, nontender. No hepatosplenomegaly. Bowel sounds are present. Extremities: +1 pitting edema bilaterally. Right chest wall right hemodialysis catheter with no redness. LABORATORY DATA White count is 7, hemoglobin 8.8, hematocrit 28.3, platelets 165, 75% neutrophils, 15% lymphocytes, 10% monocytes. Sodium 138, potassium 3.6, chloride 103, bicarb 27, BUN 40, creatinine 3.86, glucose 175, calcium 8.2, AST 12, ALT 21, CRP 1.31. IMPRESSION 1. C difficile colitis, improving but still has persistent diarrhea that he does not feel he can make the trip to dialysis without having an accident so he is not being discharged yet. Will continue with fidaxomicin 400 mg by mouth twice a day for a total of 14 days, then will taper to once a day for 7 days every other day for 14 days. Please obtain prior authorization and send a prescription to [facility] so it could be delivered to his house before his discharge. 2. Chronic constipation. Usually the patient takes Senokot 2 tablets, MiraLax and Linzess at baseline. The patient was advised not to restart those medications until he has constipation and to reintroduce them slowly. The patient to continue with probiotics three times a day 3. Coronary artery disease, recent myocardial infarction ([place]), stable. 4.End-stage renal disease, on hemodialysis through a right hemodialysis catheter, doing well. PLAN: Fidaxomicin 200 mg by mouth twice a day for 14 days followed by 200 mg daily for 1 week and then every other day for 2 weeks. Will reconsider stool transplantation or IV bezlotoxumab if the patient has a recurrence. At this point the risks outweigh the benefits. The patient would like to followup with gastroenterology in [place] with Dr. Chow regarding his chronic constipation and not to have to go to [place]. [facility]
[2018-05-27 06:00] VITALS: BP 108/62
[2018-05-27] MEDS: HumaLOG INSULIN (NovoLOG) PER UNIT SC SCH ×3 (07:30→18:09)
[2018-05-27] MEDS: ENTRESTO 24-26MG TABLET (SACUBITRIL/VALSARTAN) PO SCH ×2 (09:00→21:07)
[2018-05-27] MEDS: HEPARIN SOD (PORCINE) 5000 UNITS/ML VIAL SQ SCH ×2 (09:00→21:00)
[2018-05-27] MEDS: PANTOPRAZOLE 40MG TAB (PROTONIX) PO SCH ×2 (09:17→21:05)
[2018-05-27] MEDS: CALCITRIOL 0.25 MCG CAP (S0169) PO SCH (09:17)
[2018-05-27] MEDS: LACTOBACILLUS ACIDOPHILUS CAP (BACID) PO SCH ×3 (09:17→21:05)
[2018-05-27] MEDS: ASPIRIN 81 MG ENTERIC TAB PO SCH (09:18)
[2018-05-27] MEDS: predniSONE 2.5 MG TAB PO SCH (09:18)
[2018-05-27] MEDS: VITAMIN D 1,000 INTERNATIONAL UNITS TABLET PO SCH (09:18)
[2018-05-27] MEDS: THIAMINE 100 MG TAB PO SCH (09:19)
[2018-05-27] MEDS: CARVedilol 3.125 MG TAB PO SCH ×2 (09:20→21:06)
[2018-05-27] MEDS ORDERED: MIDODRINE 5 MG TAB PO ONE (11:00)
[2018-05-27] MEDS: FIDAXOMICIN 200 MG TAB (DIFICID) PO SCH ×2 (12:08→21:07)
--- NOTE | 2018-05-27 15:30 | IPN ---
DATE: 05/27/2018 PROGRESS NOTE: Solitario was seen in dialysis. He complains of some abdominal cramps and he still has soft stools but they seem to have a little more form to them. He had at least 6-8 bowel movements today. He still does not feel ready to go home due to the frequency of bowel movements and not being able to make it to dialysis. LABS: White count of 7, hemoglobin 8.8, hematocrit 28.3, platelets 165. Sodium 138, potassium 3.6, chloride 103, bicarbonate 27, BUN 40, creatinine 3.86, glucose 175, AST 12, ALT 21. Abdomen is soft, nontender. No visceromegaly. Extremities +1 pitting edema. IMPRESSION: 1. Clostridium (C) difficile colitis, on fidaxomicin 200 mg by mouth twice a day, day #13 and probiotics. 2. End-stage renal disease. Patient having an extra hemodialysis today due to fluid overload. PLAN: Continue fidaxomicin twice a day for 14 days and daily for 1 week, every other day for 1 week, then every 3 days for 2 weeks. The patient opted not to take bezlotoxumab due to history of severe cardiac issues and congestive heart failure. If diarrhea does not improve, then he may benefit from a stool transplantation, which also has been on hold due to recent myocardial infarction.
--- NOTE | 2018-05-27 16:15 | IPN ---
DATE OF SERVICE: 05/27/2018 SUBJECTIVE: Patient was seen and examined at the bedside today, morning. Patient is afebrile, hemodynamically stable. He was dialyzed yesterday; 2.5 liter of fluid was removed. The patient also reports that his diarrhea is getting better. His bowel movements are more formed and less frequent. However, he does report worsening lower extremity edema despite being dialyzed yesterday. He has history of severe heart failure. OBJECTIVE: VITAL SIGNS: Temperature is 97.1 degrees Fahrenheit, blood pressure 108/62, pulse is 76, respiratory rate of 19, saturating 98% on room air. INTAKE AND OUTPUT: Urine output recorded as only 250 mL yesterday, 2.5 liter of fluid was removed with dialysis yesterday. Weight in the bed scale is 81.4 kg. PHYSICAL EXAMINATION: GENERAL: Patient is awake, alert, oriented times three, sitting up in the sofa, in no apparent distress. HEAD AND NECK EXAM: Extraocular muscles intact. Pupils equally round and reactive to light. Mucous membranes are moist. Neck is supple. Mildly elevated jugular venous distention (JVD). CARDIOVASCULAR: S1, S2. Left-sided automatic implantable cardioverter defibrillator (AICD). 2+ edema of the bilateral lower extremities. RESPIRATORY: Decreased breath sounds at the bases. Mild respiratory crackles at the bases. ABDOMEN: Is soft, positive bowel sounds, mild amount of abdominal wall edema. MUSCULOSKELETAL: No clubbing or cyanosis. Pulses are 2+. CENTRAL NERVOUS SYSTEM (CAP SEWER): No focal deficit. Power is 5/5 in all extremities. LAB REVIEW: CBC showed a hemoglobin of 8.8 yesterday. There is no BMP available from today. IMAGING: Scrotal ultrasound was done, which showed evidence of partial thrombosis in one of the veins of left-sided varicose, small bilateral hydroceles. CURRENT INPATIENT MEDICATIONS: The patient's medications were all reviewed by me. I have ordered one dose of midodrine to be given today before ultrafiltration. ASSESSMENT AND PLAN: 1. End-stage renal disease, on hemodialysis. Patient's regular dialysis days are Wednesday, , Wednesday. He was dialyzed yesterday; however, because of heart failure and fluid overload I will do another session of ultrafiltration today, and he will get 5 mg of midodrine before ultrafiltration so we can remove fluid. 2. Chronic systolic congestive heart failure. Volume status is decompensated. Continue current dose of Coreg and Entresto. As mentioned above, patient will get an extra session of ultrafiltration today. 3. Anemia in end-stage renal disease. Continue current dose of Aranesp 200 mcg with hemodialysis. No need of a blood transfusion. 4. Clostridium (C) difficile diarrhea. Patient is currently getting Dificid. Frequency of the diarrhea is improving.
[2018-05-27 18:00] VITALS: BP 113/63
--- NOTE | 2018-05-27 19:25 | IPNPDOC ---
Text Note Date of Service The patient was seen on 05/27/18. NOTE The patient is seen and examined. Denies any chest pain, pressure or discomfort. Reported 8 bowel movement in 24 hr. reported mild testicular pain. PHYSICAL EXAMINATION: GENERAL: The patient is comfortable and in no acute distress. HEENT: Moist mucous membranes. NECK: Supple. CARDIAC: Regular. S1, S2. 2/6 systolic murmur. ABDOMEN: Soft, nontender. Positive bowel sounds. EXTREMITIES: No clubbing, cyanosis or edema. : no testicular swelling, redness or lesion ASSESSMENT AND PLAN: This is a 62-year-old male patient with underlying medical history of end stage renal disease on dialysis Wednesday, and Wednesday, coronary artery disease with coronary artery bypass graft (CABG) with multiple stents, systolic congestive heart failure (CHF) with ejection fraction of 35%, severe global hypokinesis, chronic obstructive pulmonary disease (COPD) on 2 liters of oxygen at night and on steroids at home, dyslipidemia, diabetes, also with pacemaker, history of gout. He was recently treated for altered mental status, fevers and pneumonia, discharged home. Admitted this time with diarrhea and found to have Clostridium (C.) difficile colitis. 1. Clostridium (C.) difficile colitis. Consult infectious disease and GI. Given the patient has severe cardiac issues, recommend against procedures that place the patient in high risk of having an adverse cardiac event. Continue Dificid. F/U ID recommended by Dr. Ellison. The patient's bowel movements have improved. Continue probiotics. 2. Elevated troponin. Electrocardiogram (EKG) is appreciated. Cardiology consulted. 3. Episode of hypotension and history of coronary artery disease with coronary artery bypass graft (CABG) and multiple stents. Continue Entresto, aspirin, Coreg, Plavix, midodrine, pravastatin. Further recommendations as per cardiology. The patient denies any chest pain. 4. End stage renal disease. Continue dialysis as per nephrology. 5. Systolic congestive heart failure (CHF) with ejection fraction of 35%. Euvolemic at this time. Fluid management as per nephrology via HD, additional HD today 6. Diabetes mellitus. Basal bolus insulin. 7. Dyslipidemia. Continue statin. 8. Diabetic neuropathy. Continue Neurontin. 9. Gastroesophageal reflux disease (GERD). Continue proton pump inhibitor. 10. History of restless legs. Continue current medications. 11. Pacemaker mediated tachycardia. Discussed with Dr. Diop, who does not recommend intervention at this time. Further recommendations as per cardiology. 12. Anemia of chronic disease. Transfuse 1 unit of packed red blood cells. Further recommendations as per nephrology. addition HD today for fluid overload 13. testicular pain, neg physical examin, US scrotal with doppler, urology consult 14. Deep vein thrombosis (DVT) prophylaxis. Heparin subcutaneously. DISPOSITION: Passed physical therapy. clinical improvement of diarrhea VS,Fishbone, I+O VS, Fishbone, I+O Vital Signs Date Time Temp Pulse Resp B/P (MAP) Pulse Ox O2 Delivery O2 Flow Rate FiO2 05/27/18 18:00 95.3 76 18 113/63 (80 99 I&O- Last 24 Hours up to 6 AM 05/27/18 06:00 Intake Total 770 ml Output Total 2650 ml Balance -1880 ml FLORENTINO MANCILLA MD May 27, 2018 19:25
[2018-05-27] MEDS: CLOPIDOGREL 75 MG TAB PO SCH (21:05)
[2018-05-27] MEDS: LEVEMIR (INSULIN DETEMIR) 1 UNITS/0.01ML SC SCH (21:05)
[2018-05-27] MEDS: FEBUXOSTAT 40 MG TABLET (ULORIC) PO SCH (21:05)
[2018-05-27] MEDS: rOPINIRole 1MG TAB PO SCH (21:06)
[2018-05-27] MEDS: PRAVASTATIN 20 MG TAB PO SCH (21:07)
[2018-05-27] MEDS: GABAPENTIN 100 MG CAP PO SCH (21:08)
[2018-05-27 22:00] VITALS: BP 113/62
[2018-05-28 06:00] VITALS: BP 112/63
[2018-05-28] MEDS: FIDAXOMICIN 200 MG TAB (DIFICID) PO SCH ×2 (06:04→21:01)
[2018-05-28] MEDS: CALCITRIOL 0.25 MCG CAP (S0169) PO SCH (06:05)
[2018-05-28] MEDS: predniSONE 2.5 MG TAB PO SCH (06:06)
[2018-05-28] MEDS: PANTOPRAZOLE 40MG TAB (PROTONIX) PO SCH ×2 (06:06→21:00)
[2018-05-28] MEDS: VITAMIN D 1,000 INTERNATIONAL UNITS TABLET PO SCH (06:06)
[2018-05-28] MEDS: ASPIRIN 81 MG ENTERIC TAB PO SCH (06:06)
[2018-05-28] MEDS: LACTOBACILLUS ACIDOPHILUS CAP (BACID) PO SCH ×3 (06:06→21:01)
[2018-05-28] MEDS: THIAMINE 100 MG TAB PO SCH (06:07)
[2018-05-28] MEDS: HEPARIN SOD (PORCINE) 5000 UNITS/ML VIAL SQ SCH ×2 (07:43→21:00)
[2018-05-28 07:55] LABS: HEMATOCRIT 29.2 % (42.0-52.0); MEAN CORPUSCULAR HEMOGLOBIN 30.7 pg (27.0-33.0); MEAN CORPUSCULAR HGB CONC 30.8 g/dl (32.0-36.5); MEAN CORPUSCULAR VOLUME 99.7 fl (80.0-96.0); PLATELET COUNT, AUTOMATED 164 10^3/uL (150-450); RED BLOOD COUNT 2.93 10^6/uL (4.30-6.10); WHITE BLOOD COUNT 6.1 10^3/uL (4.0-10.0)
[2018-05-28] MEDS: CARVedilol 3.125 MG TAB PO SCH ×2 (07:56→21:03)
[2018-05-28] MEDS: ENTRESTO 24-26MG TABLET (SACUBITRIL/VALSARTAN) PO SCH ×2 (07:56→21:00)
[2018-05-28] MEDS: MIDODRINE 5 MG TAB PO SCH (07:56)
[2018-05-28] MEDS: HumaLOG INSULIN (NovoLOG) PER UNIT SC SCH ×3 (07:57→18:04)
[2018-05-28 08:28] LABS: ALBUMIN 2.6 GM/DL (3.2-5.2); CALCIUM LEVEL 8.9 MG/DL (8.8-10.2); CREATININE FOR GFR 4.25 MG/DL (0.70-1.30); GLOMERULAR FILTRATION RATE 15.3 (>49); MAGNESIUM LEVEL 1.6 MG/DL (1.8-2.4); PHOSPHORUS LEVEL 4.8 MG/DL (2.5-4.9); POTASSIUM SERUM 3.9 MEQ/L (3.5-5.1)
[2018-05-28] MEDS ORDERED: MAGNESIUM OXIDE 400 MG TAB (MAG-OX) PO SCH (09:00)
[2018-05-28] MEDS ORDERED: HEPARIN 1,000 UNITS/ML 10ML VIAL (FOR RADIOLOGY& DIALYSIS ONLY) XX ONE (11:15)
[2018-05-28] MEDS: MAGNESIUM OXIDE 400 MG TAB (MAG-OX) PO SCH (12:11)
[2018-05-28] MEDS ORDERED: MIDODRINE 5 MG TAB PO ONE (13:00)
[2018-05-28 18:00] VITALS: BP 116/66
--- NOTE | 2018-05-28 19:03 | IPNPDOC ---
Text Note Date of Service The patient was seen on 05/28/18. NOTE The patient is seen and examined. Denies any chest pain, pressure or discomfort. Diarrhea improved PHYSICAL EXAMINATION: GENERAL: The patient is comfortable and in no acute distress. HEENT: Moist mucous membranes. NECK: Supple. CARDIAC: Regular. S1, S2. 2/6 systolic murmur. ABDOMEN: Soft, nontender. Positive bowel sounds. EXTREMITIES: No clubbing, cyanosis or edema. : no testicular swelling, redness or lesion ASSESSMENT AND PLAN: This is a 62-year-old male patient with underlying medical history of end stage renal disease on dialysis Wednesday, and Wednesday, coronary artery disease with coronary artery bypass graft (CABG) with multiple stents, systolic congestive heart failure (CHF) with ejection fraction of 35%, severe global hypokinesis, chronic obstructive pulmonary disease (COPD) on 2 liters of oxygen at night and on steroids at home, dyslipidemia, diabetes, also with pacemaker, history of gout. He was recently treated for altered mental status, fevers and pneumonia, discharged home. Admitted this time with diarrhea and found to have Clostridium (C.) difficile colitis. 1. Clostridium (C.) difficile colitis. Consult infectious disease and GI. Given the patient has severe cardiac issues, recommend against procedures that place the patient in high risk of having an adverse cardiac event. Continue Dificid. F/U ID recommended by Dr. Ellison. The patient's bowel movements have improved. Continue probiotics. 2. Elevated troponin. Electrocardiogram (EKG) is appreciated. Cardiology consulted. 3. Episode of hypotension and history of coronary artery disease with coronary artery bypass graft (CABG) and multiple stents. Continue Entresto, aspirin, Coreg, Plavix, midodrine, pravastatin. Further recommendations as per cardiology. The patient denies any chest pain. 4. End stage renal disease. Continue dialysis as per nephrology. 5. Systolic congestive heart failure (CHF) with ejection fraction of 35%. fluid overloaded from transfusion. Fluid management as per nephrology via HD. 6. Diabetes mellitus. Basal bolus insulin. 7. Dyslipidemia. Continue statin. 8. Diabetic neuropathy. Continue Neurontin. 9. Gastroesophageal reflux disease (GERD). Continue proton pump inhibitor. 10. History of restless legs. Continue current medications. 11. Pacemaker mediated tachycardia. Discussed with Dr. Diop, who does not recommend intervention at this time. Further recommendations as per cardiology. 12. Anemia of chronic disease. Transfuse 1 unit of packed red blood cells. Further recommendations as per nephrology. 13. testicular pain, neg physical examin, US scrotal with doppler, urology consult, scrotal elevation 14. Deep vein thrombosis (DVT) prophylaxis. Heparin subcutaneously. DISPOSITION: Passed physical therapy. clinical improvement of diarrhea VS,Fishbone, I+O VS, Fishbone, I+O Laboratory Tests 05/28/18 07:29 Red Blood Count 2.93 L, Mean Corpuscular Volume 99.7 H, Mean Corpuscular Hemoglobin 30.7, Mean Corpuscular Hemoglobin Concent 30.8 L, Red Cell Distribution Width 21.6 H, Anion Gap 10 Vital Signs Date Time Temp Pulse Resp B/P (MAP) Pulse Ox O2 Delivery O2 Flow Rate FiO2 05/28/18 07:56 76 114/64 05/28/18 06:00 96.9 16 100 I&O- Last 24 Hours up to 6 AM 05/28/18 06:00 Intake Total 955 ml Output Total 2700 ml Balance -1745 ml FLORENTINO MANCILLA MD May 28, 2018 19:03
[2018-05-28] MEDS: FEBUXOSTAT 40 MG TABLET (ULORIC) PO SCH (21:00)
[2018-05-28] MEDS: CLOPIDOGREL 75 MG TAB PO SCH (21:00)
[2018-05-28] MEDS: rOPINIRole 1MG TAB PO SCH (21:00)
[2018-05-28] MEDS: LEVEMIR (INSULIN DETEMIR) 1 UNITS/0.01ML SC SCH (21:00)
[2018-05-28] MEDS: PRAVASTATIN 20 MG TAB PO SCH (21:01)
[2018-05-28] MEDS: GABAPENTIN 100 MG CAP PO SCH (21:01)
--- NOTE | 2018-05-28 21:46 | CR.PDOC ---
General Date of Consultation: May 27, 2018 Referring Provider: FLORENTINO MANCILLA MD Primary Care Physician: FLORENTINO MANCILLA MD Attending Physician: FLORENTINO MANCILLA MD Consultation REASON FOR CONSULTATION/CHIEF COMPLAINT: hydrocele and thrombosed spermatic/testicular veins. HISTORY OF PRESENT ILLNESS: Nicholas Clark is a 62-year-old male with a past medical history of end-stage renal disease on hemodialysis on a Wednesday, , Wednesday scheduled. He has only recently started chronic hemodialysis within the past two months. Which may or may not be related to chronic diabetes and iv contrast associated with 29 cardiac stents. He has history of severe coronary artery discharge, status post coronary artery bypass graft (CABG). He has chronic obstructive pulmonary disease (COPD) on 2 liters of oxygen at night, systolic congestive heart failure, dyslipidemia, insulin-dependent diabetes mellitus, status post pacemaker, history of gout, secondary hyperparathyroidism and other comorbid conditions mentioned below. He just had prolonged hospitali zation and associated immobilization April 11 to May 06. Pt was admitted d/t experiencing recurrent watery bowel movements and became progressively more and more weak. Work up in the emergency room revealed leukocytosis with white count of 23,000, temp of 101.9F and stool study showed positive for Clostridium difficile associated with patients weakness. He has been complaining of right testis/epididymal according to his on and off for the last 2 mos. PAST MEDICAL AND SURGICAL HISTORY: 1. Congestive heart failure (CHF) with reduced ejection fraction. 2. Extensive coronary artery disease with 29 stents and history of coronary artery bypass grafting times two. 3. Dyslipidemia. 4. Type 2 diabetes mellitus, insulin dependent. 5. Hypertension. 6. Chronic obstructive pulmonary disease (COPD). 7. History of cerebrovascular accident (CVA) in the past. 8. History of pancytopenia in the past. 9. Gout. 10. End-stage renal disease on hemodialysis. PAST SURGICAL HISTORY: 1. PermCath placement. 2. Coronary artery bypass grafting times two, once in 2000, second time in 2014. 3. Multiple coronary angioplasties with a total of 29 stents. 4. Status post cholecystectomy. 5. Status post left hip surgery. 6. Status post pacemaker placement. 7. History of cataract surgery. 8. Back surgery. ALLERGIES: Hydralazine and shellfish . FAMILY HISTORY: There is significant family history of coronary artery disease, multiple deaths in family members in their 50s because of heart disease. SOCIAL HISTORY: He is . He lives at home. Denies illicit drug abuse, alcohol abuse or smoking. Review of Systems: GI: as stated above CVS: chest pain in past, no leg swelling. RS: Has Shortness of breath, No Wheezing, no cough INCOME TAX EXPERT: No dizziness, No motor weakness, No sensory problems Hematology: No bruising, No gum bleeding, Musculoskeletal: No joint pain, ambulating well. Skin: No rash : Patient is anuric ENT: No ear discharge/ pain, No dysphagia. Eyes: No photophobia. Review of systems was completed, all of which were negative except those listed in the history of present illness. NAME: NICHOLAS CLARK DATE OF : 1955 AGE: 62 SEX: M REPORT #: [id number] ROOM: [facility] TECHNOLOGIST: RADHA DOCTOR: FLORENTINO MANCILLA MD Ordered for Date&Time: 05/26/18 1109 cc: [~ rep ct ivnm] Service Date&Time: 05/26/18 0810 EXAMINATION REQUESTED: Scrotal, US REASON FOR PATIENT VISIT: C. DIFFICILE COLITIS REASON FOR EXAM/COMMENT: testicular pain, with doppler High-resolution bilateral scrotal sonography: History: Testicular pain. Findings: High-resolution bilateral scrotal sonography is performed. There is no evidence of intratesticular mass on either side. Testicular Doppler flow is normal bilaterally. Resistive indices are 0.76 on the right and 0.73 on the left. Right testis measures 2.8 x 1.7 x 2.0 cm. Left testicular dimensions are 3.3 x 1.6 x 2.2 cm. There are tiny 2 mm cysts in the head of the epididymis on each side. There are small bilateral hydroceles. There is a small left-sided varicocele with evidence of a thrombosed venous component in the left-sided varicocele. Impression: Evidence of partial thrombosis in one of the veins in the left-sided varicocele. Small bilateral hydroceles. Otherwise negative scrotal sonography. NAME: NICHOLAS CLARK DATE OF : 1955 AGE: 62 SEX: M REPORT #: [id number] ROOM: [facility] TECHNOLOGIST: JULIA RAMIREZ: FLORENTINO MANCILLA MD Ordered for Date&Time: 05/16/18 1600 cc: [~ rep ct ivnm] Service Date&Time: 05/16/18 1605 EXAMINATION REQUESTED: CT ABD/PEL W/IV CONTRAST ONLY REASON FOR PATIENT VISIT: C. DIFFICILE COLITIS REASON FOR EXAM/COMMENT: abd pain, to be done in afternoon 1600 Clinical: Acute abdominal pain. Comparison: 05/11/2018. Technique: Axial contrast enhanced images from the lung bases to the pubic symphysis with coronal and sagittal re-formations using 100 ml and 370 intravenous contrast material. Automated dose lowering techniques and adjustment according to patient's size utilized during acquisition. Findings: Mucosal thickening and pericolonic inflammatory changes involve the mid transverse colon through rectosigmoid colon consistent with an acute infectious/inflammatory colitis. No bowel obstruction. No free air to suggest perforation. No drainable collection/abscess or significant ascites. The remainder of the small and large bowel is grossly unremarkable including normal terminal ileum and appendix. Liver, spleen, pancreas, bilateral adrenal glands and kidneys are normal / stable. Age-related atrophic changes to the bilateral kidneys again noted. Evidence of prior cholecystectomy. Pelvis demonstrates normal bladder and age appropriate prostate/seminal vesicles. Abdominal aorta and vasculature without aneurysm or dissection. Musculoskeletal structures demonstrate degenerative changes along with evidence for prior lumbar surgery. Lung bases demonstrate minimal left basilar atelectasis. Impression: 1. Acute infectious/inflammatory colitis involving the transverse through rectosigmoid colon. No bowel obstruction, perforation, drainable collection/abscess or ascites. VITAL SIGNS ON ADMISSION: T-max of 101.9, pulse initially in the 100s, respirations of 16, satting at 97% on room air. PHYSICAL EXAMINATION: GENERAL: Well nourished, in no apparent distress. HEAD: Normocephalic, atraumatic. EYES: Extraocular movements are intact. Pupils equal, round, reactive to light. NECK: Supple. No jugular venous pressure (JVP). LUNGS: Clear to auscultation. No crackles, wheezes, rales or rhonchi. CARDIOVASCULAR: Regular rate and rhythm. Normal S1 and S2. No murmurs, gallops, or rubs. ABDOMEN: Soft, nontender, nondistended. Positive bowel sounds. No rebound or guarding. GENITOURINARY: tabitha enlarged symmetric smooth right scrotal tenderness to examination of upper testis and epididymis EXTREMITIES: No pitting edema or calf tenderness. SKIN: Intact. No rashes, lesions or breakdowns. NEUROLOGICAL EXAM: Alert and oriented times three. No focal deficits appreciated on exam. LABORATORY DATA: Please see below. ASSESSMENT/PLAN: 1. right testis tenderness un related to the his us findings of left varicocele and spermatic vein thrombosis. 2. hydrocele: minimal and insignificant. 3. right scrotal pain is overlying the right epididymis and upper testis. there is size discrepancy that is small but there is good blood flow and no varicocele or hernia associated with pain. Encourage elevating the scrotum, ice, and Tylenol 4. psa f/t screening. 5. f/u us in 6 weeks. unless pain gets worse during this time. Vital Signs/I&O Vital Signs Date Time Temp Pulse Resp B/P (MAP) Pulse Ox O2 Delivery O2 Flow Rate FiO2 05/27/18 09:20 75 106/64 05/27/18 06:00 97.1 19 98 I&O- Last 24 Hours up to 6 AM 05/27/18 06:00 Intake Total 770 ml Output Total 2650 ml Balance -1880 ml Laboratory Data Labs 24H Laboratory Tests 2 05/26/18 17:00: Bedside Glucose (Misc Panel) 165H 05/26/18 21:17: Bedside Glucose (Misc Panel) 220H 05/27/18 07:01: Bedside Glucose (Misc Panel) 117H 05/27/18 08:35: Bedside Glucose (Misc Panel) 95 05/27/18 11:29: Bedside Glucose (Misc Panel) 117H Allergies Coded Allergies: Shellfish Allergy (Verified Allergy, Unknown, 06/28/12) Contrast Media (Unverified Adverse Reaction, Mild, KIDNEY PROBLEMS, 04/24/18) Hydralazine (Unverified Adverse Reaction, Mild, dizziness, 04/24/18) Home Medications Scheduled (Katya Wilde) 300 Unit/Ml Inj, 70 UNIT SC QHS, (Reported) (Folic Acid) 800 Mcg Cap, 2,400 MCG PO DAILY, (Reported) Aspirin (Aspirin 81) 81 Mg Tab, 81 MG PO DAILY, (Reported) Calcitriol (Calcitriol) 0.25 Mcg Cap, 0.25 MCG PO DAILY, (Reported) Carvedilol (Carvedilol) 3.125 Mg Tab, 3.125 MG PO BID, (Reported) Cholecalciferol (Vitamin D3) 1,000 Unit Tab, 2,000 UNIT PO DAILY, (Reported) Clopidogrel Bisulfate (Clopidogrel) 75 Mg Tab, 75 MG PO QHS, (Reported) Febuxostat (Uloric) 80 Mg Tab, 80 MG PO QHS, (Reported) Fidaxomicin (Dificid) 200 Mg Tab, 1 TAB PO BID for 4 Days, #8 Gabapentin (Gabapentin) 100 Mg Cap, 100 MG PO QHS, (Reported) Insulin Human Regular (Humulin R) 1 Units/0.01 Ml Soln, 0 SC ACHS, (Reported) PER SLIDING SCALE Melatonin (Melatonin) 5 Mg Tab, 5 MG PO QHS, (Reported) Midodrine HCl (Midodrine HCl) 5 Mg Tab, 5 MG PO 3XW, (Reported) MON,WED,FRI Pantoprazole Sodium (Pantoprazole Sodium) 40 Mg Tab, 40 MG PO BID, (Reported) Pravastatin Sodium (Pravastatin Sodium) 80 Mg Tab, 80 MG PO QHS, (Reported) Prednisone (Prednisone) 2.5 Mg Tab, 2.5 MG PO DAILY, (Reported) Ropinirole Hydrochloride (Ropinirole HCl) 1 Mg Tab, 1 MG PO QHS, (Reported) Sacubitril/Valsartan (Entresto 24-26 mg) 1 Tab Tab, 1 TAB PO BID, (Reported) Thiamine HCl (B-1) 250 Mg Tab, 250 MG PO DAILY, (Reported) Scheduled PRN Acetaminophen (Acetaminophen) 500 Mg Tab, 1,000 MG PO BID PRN for PAIN, (Reported) Bisacodyl (Dulcolax) 5 Mg Tab, 5 MG PO DAILY PRN for CONSTIPATION, (Reported) Docusate Sodium (Colace) 100 Mg Cap, 100 MG PO BID PRN for CONSTIPATION, (Reported) Linaclotide Base (Linzess) 290 Mcg Cap, 290 MCG PO DAILY PRN for CONSTIPATION, (Reported) Nitroglycerin (Nitrostat) 0.4 Mg Subl, 0.4 MG SL NITRO PRN for CHEST PAIN, (Reported) Ondansetron HCl (Zofran) 4 Mg Tab, 4 MG PO Q8H PRN for NAUSEA, (Reported) Polyethylene Glycol (Miralax) 1 Pow Pow, 17 GM PO DAILY PRN for CONSTIPATION, (Reported) Senna (Senna-Lax) 8.6 Mg Tab, 1 TAB PO BID PRN for CONSTIPATION, (Reported) Simethicone (Simethicone) 80 Mg Chew, 80 MG PO Q6H PRN for GAS PAIN, (Reported) Juana Michelle MD May 27, 2018 16:26
--- NOTE | 2018-05-28 21:55 | IPNPDOC ---
Date Seen The patient was seen on 05/28/18. Progress Note SUBJECTIVE: Patient is a 62 yo male with scrotal pain (right). thrombotic vessel (left) OBJECTIVE PHYSICAL EXAMINATION: VITAL SIGNS: Please see below. GENERAL:alert oriented HEENT:no erythema no exudate CARDIOVASCULAR: deferred for cardiology RESPIRATORY: good excursion no wheeze or stricor. ABDOMINAL: soft non tender non distended EXTREMITIES: mild mottling : mild tenderness righ testis; tabitha smooth symmetric (exam yesterday). LABORATORY DATA, IMAGING STUDIES, MICROBIOLOGY: Please see below. ASSESSMENT AND PLAN: This is 62 yo male with scrotal pain (right). thrombotic vessel (left) PROBLEMS: 1. right scrotal pain: elevate ice tylenol. 2. thrombotic spermatic vessel (vein): more likely associated systemic problem of stasis and other comorbid condition. DISPOSITION: per hospitalist VS, I&O, 24H, Fishbone Vital Signs/I&O Vital Signs Date Time Temp Pulse Resp B/P (MAP) Pulse Ox O2 Delivery O2 Flow Rate FiO2 05/28/18 21:03 78 111/58 05/28/18 18:00 98.1 16 99 I&O- Last 24 Hours up to 6 AM 05/28/18 06:00 Intake Total 955 ml Output Total 2700 ml Balance -1745 ml Laboratory Data 24H LABS Laboratory Tests 2 05/28/18 06:37: Bedside Glucose (Misc Panel) 171H 05/28/18 07:29: Nucleated Red Blood Cells % (auto) 0.0, Blood Urea Nitrogen 40H, Creatinine 4.25H, Sodium Level 141, Potassium Level 3.9, Chloride Level 105, Carbon Dioxide Level 26, Anion Gap 10, Glomerular Filtration Rate 15.3L, Calcium Level 8.9, Phosphorus Level 4.8, Magnesium Level 1.6L, Albumin 2.6L 05/28/18 17:47: Bedside Glucose (Misc Panel) 166H 05/28/18 20:04: Bedside Glucose (Misc Panel) 223H CBC/BMP Laboratory Tests 05/28/18 07:29 Red Blood Count 2.93 L, Mean Corpuscular Volume 99.7 H, Mean Corpuscular Hemoglobin 30.7, Mean Corpuscular Hemoglobin Concent 30.8 L, Red Cell Distribution Width 21.6 H, Anion Gap 10 Juana Michelle MD May 28, 2018 21:55
[2018-05-28 22:00] VITALS: BP 111/58
[2018-05-29 06:00] VITALS: BP 115/72
[2018-05-29 07:03] LABS: HEMATOCRIT 29.6 % (42.0-52.0); MEAN CORPUSCULAR HEMOGLOBIN 30.4 pg (27.0-33.0); MEAN CORPUSCULAR HGB CONC 30.4 g/dl (32.0-36.5); PLATELET COUNT, AUTOMATED 177 10^3/uL (150-450); RED BLOOD COUNT 2.96 10^6/uL (4.30-6.10); WHITE BLOOD COUNT 5.8 10^3/uL (4.0-10.0)
[2018-05-29 07:31] LABS: CALCIUM LEVEL 8.5 MG/DL (8.8-10.2); CREATININE FOR GFR 3.58 MG/DL (0.70-1.30); GLOMERULAR FILTRATION RATE 18.6 (>49); MAGNESIUM LEVEL 1.8 MG/DL (1.8-2.4); POTASSIUM SERUM 3.8 MEQ/L (3.5-5.1)
--- NOTE | 2018-05-29 08:14 | IPN ---
DATE: 05/28/2018 SUBJECTIVE: Patient was seen and examined at the bedside today morning. Patient is afebrile and hemodynamically stable. He reports that his diarrhea is getting better. He got ultrafiltration session done yesterday, 2.5 liters of fluid was removed which he tolerated well. Today is patient's regular day of dialysis. OBJECTIVE: VITAL SIGNS: Temperature 96.9 degrees Fahrenheit, blood pressure 114/64, pulse 76, respiratory rate 16, saturating 100% on room air. INTAKE AND OUTPUT: Ultrafiltration done yesterday was 2.5 liters. Weight in the bed scale was 81.4 kg yesterday. PHYSICAL EXAMINATION: GENERAL: Patient is awake, alert and oriented times three, laying in bed in no apparent distress. HEAD AND NECK EXAM: Extraocular muscles are intact. Pupils are equally round and reactive to light. Mucous membranes are moist. NECK: Supple and mild elevation of JVD. CARDIOVASCULAR: S1, S2. He has +1 edema on the right leg and 2+ edema on the left leg. RESPIRATORY: Decreased breath sounds at the bases, otherwise no active rales or rhonchi. ABDOMEN: Soft, positive bowel sounds. Mild amount of abdominal wall edema in the flanks. MUSCULOSKELETAL: No clubbing or cyanosis. Pulses are 2+. BIODIESEL PROCESS CONTROL TECHNICIAN: No focal deficit. Power is 5/5 in all extremities. LAB REVIEW: CBC showed a WBC of 6.1, hemoglobin 9, platelets 164, BMP showed a sodium 141, potassium 3.9, chloride 105, bicarbonate 26, BUN 40, creatinine 4.2, magnesium 1.6. CURRENT INPATIENT MEDICATIONS: Patient's medications were all reviewed by me. There is no change in the medications today as compared with yesterday. However I see that he has been started on magnesium oxide 400 mg by mouth three times a day. ASSESSMENT AND PLAN: 1. End stage renal disease on hemodialysis. Patient's regular dialysis days are Wednesday, , and Wednesday. He will be dialyzed according to his regular schedule today. I will try to remove at least 2.5-3 liters of fluid as tolerated by his blood pressure. 2. Chronic systolic congestive heart failure. Volume status is slightly decompensated. He got extra session of ultrafiltration yesterday. More fluid will be removed today. Continue home dose of Coreg and Entresto at this point. 3. Anemia and end-stage renal disease. Hemoglobin is 9 which is improving. Continue current dose of Aranesp 200 mcg with hemodialysis. 4. C-diff diarrhea. He is currently on Dificid. The rest of the management is as per ID and GI recommendations.
[2018-05-29] MEDS: predniSONE 2.5 MG TAB PO SCH (08:55)
[2018-05-29] MEDS: THIAMINE 100 MG TAB PO SCH (08:55)
[2018-05-29] MEDS: ASPIRIN 81 MG ENTERIC TAB PO SCH (08:55)
[2018-05-29] MEDS: CALCITRIOL 0.25 MCG CAP (S0169) PO SCH (08:55)
[2018-05-29] MEDS: ENTRESTO 24-26MG TABLET (SACUBITRIL/VALSARTAN) PO SCH ×3 (08:56→21:56)
[2018-05-29] MEDS: MAGNESIUM OXIDE 400 MG TAB (MAG-OX) PO SCH (08:56)
[2018-05-29] MEDS: LACTOBACILLUS ACIDOPHILUS CAP (BACID) PO SCH ×3 (08:56→21:52)
[2018-05-29] MEDS: PANTOPRAZOLE 40MG TAB (PROTONIX) PO SCH ×2 (08:56→21:53)
[2018-05-29] MEDS: VITAMIN D 1,000 INTERNATIONAL UNITS TABLET PO SCH (08:56)
[2018-05-29] MEDS: FIDAXOMICIN 200 MG TAB (DIFICID) PO SCH ×2 (08:56→21:53)
[2018-05-29] MEDS: HumaLOG INSULIN (NovoLOG) PER UNIT SC SCH ×3 (08:57→17:57)
[2018-05-29] MEDS: HEPARIN SOD (PORCINE) 5000 UNITS/ML VIAL SQ SCH ×3 (08:58→22:18)
[2018-05-29] MEDS: CARVedilol 3.125 MG TAB PO SCH ×2 (08:58→21:54)
--- NOTE | 2018-05-29 11:00 | IPNPDOC ---
Date Seen The patient was seen on 05/29/18. Progress Note SUBJECTIVE: Patient is a 62 yo male with scrotal pain (right) resolved OBJECTIVE PHYSICAL EXAMINATION: VITAL SIGNS: Please see below. GENERAL:alert oriented HEENT:no erythema no exudate CARDIOVASCULAR: deferred for cardiology RESPIRATORY: good excursion no wheeze or stricor. ABDOMINAL: soft non tender non distended EXTREMITIES: mild mottling : mild tenderness right testis resolved; tabitha smooth symmetric (exam 2 days ago). LABORATORY DATA, IMAGING STUDIES, MICROBIOLOGY: Please see below. ASSESSMENT AND PLAN: This is 62 yo male with scrotal pain (right). thrombotic vessel (left) PROBLEMS: 1. right scrotal pain improved: elevate ice tylenol as needed DISPOSITION: per hospitalist VS, I&O, 24H, [facility] Vital Signs/I&O Vital Signs Date Time Temp Pulse Resp B/P (MAP) Pulse Ox O2 Delivery O2 Flow Rate FiO2 05/29/18 08:58 83 114/68 05/29/18 06:00 97.6 18 99 I&O- Last 24 Hours up to 6 AM 05/29/18 06:00 Intake Total 1090 ml Output Total 3475 ml Balance -2385 ml Laboratory Data 24H LABS Laboratory Tests 2 05/28/18 17:47: Bedside Glucose (Misc Panel) 166H 05/28/18 20:04: Bedside Glucose (Misc Panel) 223H 05/29/18 06:21: Nucleated Red Blood Cells % (auto) 0.0, Anion Gap 9, Glomerular Filtration Rate 18.6L, Blood Urea Nitrogen 30H, Creatinine 3.58H, Sodium Level 141, Potassium Level 3.8, Chloride Level 104, Carbon Dioxide Level 28, Calcium Level 8.5L, Magnesium Level 1.8 CBC/BMP Laboratory Tests 05/29/18 06:21 Red Blood Count 2.96 L, Mean Corpuscular Volume 100.0 H, Mean Corpuscular Hemoglobin 30.4, Mean Corpuscular Hemoglobin Concent 30.4 L, Red Cell Distribution Width 21.1 H, Calcium Level 8.5 L Juana Michelle MD May 29, 2018 10:59
[2018-05-29 14:00] VITALS: BP 110/66
--- NOTE | 2018-05-29 14:46 | IPNPDOC ---
Text Note Date of Service The patient was seen on 05/29/18. NOTE The patient is seen and examined. Denies any chest pain, pressure or discomfort. Diarrhea improved PHYSICAL EXAMINATION: GENERAL: The patient is comfortable and in no acute distress. HEENT: Moist mucous membranes. NECK: Supple. CARDIAC: Regular. S1, S2. 2/6 systolic murmur. ABDOMEN: Soft, nontender. Positive bowel sounds. EXTREMITIES: No clubbing, cyanosis or edema. : no testicular swelling, redness or lesion ASSESSMENT AND PLAN: This is a 62-year-old male patient with underlying medical history of end stage renal disease on dialysis Wednesday, and Wednesday, coronary artery disease with coronary artery bypass graft (CABG) with multiple stents, systolic congestive heart failure (CHF) with ejection fraction of 35%, severe global hypokinesis, chronic obstructive pulmonary disease (COPD) on 2 liters of oxygen at night and on steroids at home, dyslipidemia, diabetes, also with pacemaker, history of gout. He was recently treated for altered mental status, fevers and pneumonia, discharged home. Admitted this time with diarrhea and found to have Clostridium (C.) difficile colitis. 1. Clostridium (C.) difficile colitis. Consult infectious disease and GI. Given the patient has severe cardiac issues, recommend against procedures that place the patient in high risk of having an adverse cardiac event. Continue Dificid. F/U ID recommended by Dr. Ellison. The patient's bowel movements have improved. Continue probiotics. 2. Elevated troponin. Electrocardiogram (EKG) is appreciated. Cardiology consulted. 3. Episode of hypotension and history of coronary artery disease with coronary artery bypass graft (CABG) and multiple stents. Continue Entresto, aspirin, Coreg, Plavix, midodrine, pravastatin. Further recommendations as per cardiology. The patient denies any chest pain. 4. End stage renal disease. Continue dialysis as per nephrology. 5. Acute exacerbation of Systolic congestive heart failure (CHF) with ejection fraction of 35%. fluid overloaded from transfusion. Fluid management as per nephrology via HD. 6. Diabetes mellitus. Basal bolus insulin. 7. Dyslipidemia. Continue statin. 8. Diabetic neuropathy. Continue Neurontin. 9. Gastroesophageal reflux disease (GERD). Continue proton pump inhibitor. 10. History of restless legs. Continue current medications. 11. Pacemaker mediated tachycardia. Discussed with Dr. Diop, who does not recommend intervention at this time. Further recommendations as per cardiology. 12. Anemia of chronic disease. Transfuse 1 unit of packed red blood cells. Further recommendations as per nephrology. 13. testicular pain, improved, US scrotal with doppler, urology consult, scrotal elevation 14. Deep vein thrombosis (DVT) prophylaxis. Heparin subcutaneously. DISPOSITION: Passed physical therapy. clinical improvement of diarrhea VS,Fishbone, I+O VS, Fishbone, I+O Laboratory Tests 05/29/18 06:21 Red Blood Count 2.96 L, Mean Corpuscular Volume 100.0 H, Mean Corpuscular Hemoglobin 30.4, Mean Corpuscular Hemoglobin Concent 30.4 L, Red Cell Distribution Width 21.1 H, Calcium Level 8.5 L Vital Signs Date Time Temp Pulse Resp B/P (MAP) Pulse Ox O2 Delivery O2 Flow Rate FiO2 05/29/18 08:58 83 114/68 05/29/18 06:00 97.6 18 99 I&O- Last 24 Hours up to 6 AM 05/29/18 06:00 Intake Total 1090 ml Output Total 3475 ml Balance -2385 ml FLORENTINO MANCILLA MD May 29, 2018 14:46
[2018-05-29] MEDS: GABAPENTIN 100 MG CAP PO SCH (21:53)
[2018-05-29] MEDS: FEBUXOSTAT 40 MG TABLET (ULORIC) PO SCH (21:53)
[2018-05-29] MEDS: PRAVASTATIN 20 MG TAB PO SCH (21:53)
[2018-05-29] MEDS: CLOPIDOGREL 75 MG TAB PO SCH (21:53)
[2018-05-29] MEDS: LEVEMIR (INSULIN DETEMIR) 1 UNITS/0.01ML SC SCH (21:54)
[2018-05-29] MEDS: rOPINIRole 1MG TAB PO SCH (21:54)
[2018-05-29 22:00] VITALS: BP 109/63
[2018-05-30 06:00] VITALS: BP 137/75
[2018-05-30] MEDS: ONDANSETRON 4 MG TAB (S0181) PO PRN (06:22)
[2018-05-30 06:23] LABS: HEMATOCRIT 34.2 % (42.0-52.0); HEMOGLOBIN 10.4 g/dl (13.5-17.5); MEAN CORPUSCULAR HEMOGLOBIN 30.8 pg (27.0-33.0); MEAN CORPUSCULAR HGB CONC 30.4 g/dl (32.0-36.5); MEAN CORPUSCULAR VOLUME 101.2 fl (80.0-96.0); PLATELET COUNT, AUTOMATED 183 10^3/uL (150-450); RED BLOOD COUNT 3.38 10^6/uL (4.30-6.10); WHITE BLOOD COUNT 9.7 10^3/uL (4.0-10.0)
[2018-05-30 06:56] LABS: CALCIUM LEVEL 8.8 MG/DL (8.8-10.2); CREATININE FOR GFR 4.78 MG/DL (0.70-1.30); GLOMERULAR FILTRATION RATE 13.3 (>49); MAGNESIUM LEVEL 1.8 MG/DL (1.8-2.4); POTASSIUM SERUM 3.9 MEQ/L (3.5-5.1)
[2018-05-30] MEDS: HEPARIN SOD (PORCINE) 5000 UNITS/ML VIAL SQ SCH ×2 (07:27→21:34)
[2018-05-30] MEDS: LACTOBACILLUS ACIDOPHILUS CAP (BACID) PO SCH ×3 (07:57→21:33)
[2018-05-30] MEDS: HumaLOG INSULIN (NovoLOG) PER UNIT SC SCH ×3 (07:57→17:14)
[2018-05-30] MEDS: CARVedilol 3.125 MG TAB PO SCH ×2 (07:58→21:35)
[2018-05-30] MEDS: predniSONE 2.5 MG TAB PO SCH (07:58)
[2018-05-30] MEDS: FIDAXOMICIN 200 MG TAB (DIFICID) PO SCH (07:59)
[2018-05-30] MEDS: ENTRESTO 24-26MG TABLET (SACUBITRIL/VALSARTAN) PO SCH ×2 (07:59→21:34)
[2018-05-30] MEDS: ASPIRIN 81 MG ENTERIC TAB PO SCH (07:59)
[2018-05-30] MEDS: MAGNESIUM OXIDE 400 MG TAB (MAG-OX) PO SCH (08:00)
[2018-05-30] MEDS: PANTOPRAZOLE 40MG TAB (PROTONIX) PO SCH ×2 (08:00→21:33)
[2018-05-30] MEDS: CALCITRIOL 0.25 MCG CAP (S0169) PO SCH (08:00)
[2018-05-30] MEDS: VITAMIN D 1,000 INTERNATIONAL UNITS TABLET PO SCH (08:02)
[2018-05-30] MEDS: THIAMINE 100 MG TAB PO SCH (08:02)
--- NOTE | 2018-05-30 09:14 | REP ---
CT of the abdomen and pelvis without IV or bowel contrast: Comparison is 05/16/2018. On the comparison study there was wall thickening of the colon from the transverse colon to the rectosigmoid colon compatible with colitis. On the study today the wall thickening of the transverse colon is no longer present. However, there is persisting wall thickening of the descending colon, sigmoid colon and rectosigmoid colon compatible with colitis. There is no pericolonic abscess. There is no ascites. There is no pneumoperitoneum. There is no bowel obstruction. The visualized lung betanc[place] are unremarkable. The unenhanced hepatic parenchyma is homogeneous. There are surgical clips in the gallbladder fossa. This is unchanged. The pancreas and spleen are unremarkable. The adrenals are unremarkable. There are calcifications in the kidneys, likely vascular atheromatous calcification. The renal cortices appear thinned bilaterally suggesting bilateral renal cortical atrophy. There is calcified atheroma in the abdominal aorta and left renal artery. The aorta is otherwise unremarkable. There is no retroperitoneal or mesenteric adenopathy. Pelvis: The appendix is unremarkable. The bladder is nondistended and cannot be further evaluated. There is no ascites or adenopathy. There is a right hip arthroplasty. There is surgical fusion of the lower lumbar spine. Impression: There is persisting colitis in the descending colon and sigmoid colon and rectosigmoid colon. The colitis identified in the transverse colon on the comparison study has resolved. There is no other interval change. Electronically Signed by Hmeal Sanchez MD 05/30/2018 09:06 A
--- NOTE | 2018-05-30 12:35 | IPN ---
DATE OF SERVICE: 05/29/2018 Patient is seen and examined this morning sitting out of bed to the chair, eating. Denies any acute overnight events or issues. Reports the stools are less frequent and more formed. Intake yesterday was 970, dialysis yesterday removed 3000, net negative 2500. Urine output yesterday, 525. Weight in the bed scale today is 78.1 kg. Temperature 97.5, pulse 80, respiratory rate 16, blood pressure 110/66, saturating 95 to 99% on room air. GENERAL: Patient is seen sitting out of bed to the chair, awake, alert, oriented, comfortable, no acute distress. Extraocular muscles are intact. Tongue is moist. Neck is supple. A tunneled hemodialysis catheter is present in the right chest wall. CARDIAC: S1, S2. There is trace edema in the left lower extremity and no edema in the right lower extremity. RESPIRATORY: Shows good air movement bilaterally. No crackle or rale. ABDOMEN: Is soft, obese, and nontender. There is some mild induration in the abdominal wall in the flanks. NEUROLOGIC: No focal deficits. Oriented. LABS: White count 5.8, hemoglobin 9, platelets 177. Sodium 141, potassium 3.8, magnesium 1.8. INPATIENT MEDICATIONS: Reviewed by myself, and no change from prior. PROBLEMS: 1. End-stage renal disease on hemodialysis on a maintenance schedule of Wednesday, , and Wednesday. His volume status has improved nicely over the course of this admission. He has been aggressively dialyzed the past week with five serial treatments. His next dialysis will be on Wednesday, as per his regular schedule. His electrolytes are acceptable. 2. Chronic systolic congestive heart failure. He has had aggressive fluid removal over the past week, has had five serial dialysis/ultrafiltration sessions. His daily weights have nicely downtrended. He continues on oral fluid restriction and is also tolerating low-dose Entresto and low-dose beta claudia in terms of his congestive heart failure. 3. Anemia of end-stage renal disease. Hemoglobin is stable but suboptimal at 9.0 and he continues on Aranesp with dialysis. 4. Hypotension of hemodialysis. Patient receives midodrine on dialysis days and has been tolerating his treatments well with improvement in his volume overload. 5. Clostridium (C) difficile colitis. Patient continues on Dificid and has been seen by infectious diseases and gastrointestinal (GI). He is symptomatically improving. 6. History of severe coronary artery disease, status post a total of 26 stents and history of coronary artery bypass graft (CABG). He continues on aspirin, Plavix, and a statin. In terms of congestive heart failure (CHF), he is also on Entresto and low-dose beta claudia, and he needs midodrine for hypotension of hemodialysis.
[2018-05-30 14:00] VITALS: BP 103/56
--- NOTE | 2018-05-30 16:47 | IPNPDOC ---
Text Note Date of Service The patient was seen on 05/30/18. NOTE The patient is seen and examined. Denies any chest pain, pressure or discomfort. n/v once overnight. Reported slight worsening watery diarrhea PHYSICAL EXAMINATION: GENERAL: The patient is comfortable and in no acute distress. HEENT: Moist mucous membranes. NECK: Supple. CARDIAC: Regular. S1, S2. 2/6 systolic murmur. ABDOMEN: Soft, nontender. Positive bowel sounds. EXTREMITIES: No clubbing, cyanosis or edema. : no testicular swelling, redness or lesion ASSESSMENT AND PLAN: This is a 62-year-old male patient with underlying medical history of end stage renal disease on dialysis Wednesday, and Wednesday, coronary artery disease with coronary artery bypass graft (CABG) with multiple stents, systolic congestive heart failure (CHF) with ejection fraction of 35%, severe global hypokinesis, chronic obstructive pulmonary disease (COPD) on 2 liters of oxygen at night and on steroids at home, dyslipidemia, diabetes, also with pacemaker, history of gout. He was recently treated for altered mental status, fevers and pneumonia, discharged home. Admitted this time with diarrhea and found to have Clostridium (C.) difficile colitis. 1. Clostridium (C.) difficile colitis. Consult infectious disease and GI. Given the patient has severe cardiac issues, recommend against procedures that place the patient in high risk of having an adverse cardiac event. Continue Dificid. F/U ID recommended by Dr. Ellison. Continue probiotics. D/w GI considering stool transplant via NGT 2. Elevated troponin. Electrocardiogram (EKG) is appreciated. Cardiology consulted. 3. Episode of hypotension and history of coronary artery disease with coronary artery bypass graft (CABG) and multiple stents. Continue Entresto, aspirin, Coreg, Plavix, midodrine, pravastatin. Further recommendations as per cardiology. The patient denies any chest pain. 4. End stage renal disease. Continue dialysis as per nephrology. 5. Acute exacerbation of Systolic congestive heart failure (CHF) with ejection fraction of 35%. fluid overloaded from transfusion. Fluid management as per nephrology via HD. 6. Diabetes mellitus. Basal bolus insulin. 7. Dyslipidemia. Continue statin. 8. Diabetic neuropathy. Continue Neurontin. 9. Gastroesophageal reflux disease (GERD). Continue proton pump inhibitor. 10. History of restless legs. Continue current medications. 11. Pacemaker mediated tachycardia. Discussed with Dr. Diop, who does not recommend intervention at this time. Further recommendations as per cardiology. 12. Anemia of chronic disease. Transfuse 1 unit of packed red blood cells. Further recommendations as per nephrology. 13. testicular pain, improved, US scrotal with doppler, urology consult, scrotal elevation 14. Deep vein thrombosis (DVT) prophylaxis. Heparin subcutaneously. DISPOSITION: Passed physical therapy. clinical improvement of diarrhea. possible stool transplant via NGT VS,Fishbone, I+O VS, Fishbone, I+O Laboratory Tests 05/30/18 06:06 Red Blood Count 3.38 L, Mean Corpuscular Volume 101.2 H, Mean Corpuscular Hemoglobin 30.8, Mean Corpuscular Hemoglobin Concent 30.4 L, Red Cell Distribution Width 20.5 H, Calcium Level 8.8 Vital Signs Date Time Temp Pulse Resp B/P (MAP) Pulse Ox O2 Delivery O2 Flow Rate FiO2 05/30/18 14:00 99.6 72 18 103/56 (72 97 I&O- Last 24 Hours up to 6 AM 05/30/18 06:00 Intake Total 1040 ml Output Total 250 ml Balance 790 ml FLORENTINO MANCILLA MD May 30, 2018 16:47
--- NOTE | 2018-05-30 16:59 | IPNPDOC ---
Text Note Date of Service The patient was seen on 05/30/18. NOTE D/W Dr Chow, hold Dificit, prepare for stool transplant via NGT. VS,Fishbone, I+O VS, Fishbone, I+O Laboratory Tests 05/30/18 06:06 Red Blood Count 3.38 L, Mean Corpuscular Volume 101.2 H, Mean Corpuscular Hemoglobin 30.8, Mean Corpuscular Hemoglobin Concent 30.4 L, Red Cell Distribution Width 20.5 H, Calcium Level 8.8 Vital Signs Date Time Temp Pulse Resp B/P (MAP) Pulse Ox O2 Delivery O2 Flow Rate FiO2 05/30/18 14:00 99.6 72 18 103/56 (72) 97 I&O- Last 24 Hours up to 6 AM 05/30/18 06:00 Intake Total 1040 ml Output Total 250 ml Balance 790 ml FLORENTINO MANCILLA MD May 30, 2018 16:59
[2018-05-30] MEDS: ACETAMINOPHEN 500 MG TAB PO PRN (17:14)
--- NOTE | 2018-05-30 20:23 | IPN ---
DATE: 05/30/2018 My attending on this case is Dr. Jackie Ellison The patient was seen today in his hospital bed. He states that he continues to have loose, watery diarrhea with today having 12 episodes and yesterday having roughly 10 to 11 episodes. He has noticed his diarrhea has not improved even while being on Dificid. He is also complaining of right lower back pain, which started this morning. He has not had any imaging done. He has asked for Tylenol but has yet to receive it. He denies having any nausea, just feels generalized weak. He is scheduled for dialysis tomorrow. LABORATORY: White count 9.7, hemoglobin 10.4, hematocrit 34.2, platelets 183. Sodium 142, potassium 3.9, chloride 106, bicarbonate 28, BUN 45, creatinine 4.78, glucose 114. PHYSICAL EXAMINATION: GENERAL: This is a 62-year-old male who looks slightly disheveled, lying down on the bed, does not appear in very severe acute distress. Appears a little uncomfortable from laying down on the bed, appropriately answering questions. CARDIOVASCULAR: Regular rate and rhythm with a 2/6 systolic murmur. LUNGS: Clear to auscultation bilaterally. No audible wheezing, rhonchi, or rales. EXTREMITIES: No lower extremity tenderness or edema. Does have some superficial wounds covered with a bandage on the left lower extremity. ABDOMEN: Soft, nontender with positive bowel sounds in all four quadrants. IMPRESSION: 1. Clostridium difficile colitis. He is currently on Dificid 200 mg by mouth twice a day and probiotics. His diarrhea symptoms have not improved. We will hold his Dificid for at least 1-2 days prior to a stool transplant. The case has been discussed with Dr. Chow, and he will have it done via nasogastric (NG) tube, hopefully Wednesday. 2. End-stage renal disease. Continue dialysis as nephrology schedule. Patient does not appear fluid overloaded. 3. Right lower back pain. Unsure if this is due to the bed, acute arthritic pain, or positional. He has Tylenol as needed on board for pain, for discomfort. If pain continues to persist, can consider getting imaging of the right lower back. My faculty preceptor for this patient encounter was physically present during the encounter and was fully available. All aspects of the patient interview, examination, medical decision making process, and medical care plan development were reviewed and approved by the faculty preceptor. The faculty preceptor is aware and concurs with the plan as stated in the body of this note and will attest to such by his/her cosignature. JERMAIN
[2018-05-30] MEDS: PRAVASTATIN 20 MG TAB PO SCH (21:33)
[2018-05-30] MEDS: rOPINIRole 1MG TAB PO SCH (21:33)
[2018-05-30] MEDS: CLOPIDOGREL 75 MG TAB PO SCH (21:33)
[2018-05-30] MEDS: FEBUXOSTAT 40 MG TABLET (ULORIC) PO SCH (21:33)
[2018-05-30] MEDS: GABAPENTIN 100 MG CAP PO SCH (21:33)
[2018-05-30] MEDS: LEVEMIR (INSULIN DETEMIR) 1 UNITS/0.01ML SC SCH (21:34)
[2018-05-30 22:00] VITALS: BP 102/58
[2018-05-31 06:00] VITALS: BP 131/61
[2018-05-31] MEDS: LACTOBACILLUS ACIDOPHILUS CAP (BACID) PO SCH ×3 (06:15→20:47)
[2018-05-31] MEDS: ASPIRIN 81 MG ENTERIC TAB PO SCH (06:15)
[2018-05-31] MEDS: VITAMIN D 1,000 INTERNATIONAL UNITS TABLET PO SCH (06:15)
[2018-05-31] MEDS: PANTOPRAZOLE 40MG TAB (PROTONIX) PO SCH ×2 (06:15→20:46)
[2018-05-31] MEDS: MAGNESIUM OXIDE 400 MG TAB (MAG-OX) PO SCH (06:15)
[2018-05-31 06:16] LABS: HEMATOCRIT 30.8 % (42.0-52.0); HEMOGLOBIN 9.4 g/dl (13.5-17.5); MEAN CORPUSCULAR HEMOGLOBIN 30.7 pg (27.0-33.0); MEAN CORPUSCULAR HGB CONC 30.5 g/dl (32.0-36.5); MEAN CORPUSCULAR VOLUME 100.7 fl (80.0-96.0); PLATELET COUNT, AUTOMATED 162 10^3/uL (150-450); RED BLOOD COUNT 3.06 10^6/uL (4.30-6.10); WHITE BLOOD COUNT 5.5 10^3/uL (4.0-10.0)
[2018-05-31] MEDS: predniSONE 2.5 MG TAB PO SCH (06:16)
[2018-05-31] MEDS: CARVedilol 3.125 MG TAB PO SCH ×2 (06:16→20:47)
[2018-05-31] MEDS: THIAMINE 100 MG TAB PO SCH (06:16)
[2018-05-31] MEDS: ENTRESTO 24-26MG TABLET (SACUBITRIL/VALSARTAN) PO SCH ×2 (06:17→20:47)
[2018-05-31] MEDS: CALCITRIOL 0.25 MCG CAP (S0169) PO SCH (06:17)
[2018-05-31] MEDS: HEPARIN SOD (PORCINE) 5000 UNITS/ML VIAL SQ SCH ×2 (06:17→20:48)
[2018-05-31 06:42] LABS: CALCIUM LEVEL 8.1 MG/DL (8.8-10.2); CREATININE FOR GFR 5.2 MG/DL (0.70-1.30); GLOMERULAR FILTRATION RATE 12.1 (>49); MAGNESIUM LEVEL 1.5 MG/DL (1.8-2.4); POTASSIUM SERUM 4.2 MEQ/L (3.5-5.1)
--- NOTE | 2018-05-31 07:09 | IPN ---
DATE OF SERVICE: 05/30/2018 SUBJECTIVE: Solitario is seen and examined this morning at the bedside. He is not in the best of spirits today. He complains of vomiting times three episodes and complains of watery diarrhea. His appetite is now poor. Further input from GI and infectious disease is pending. Vital Signs: Temperature 97.4, pulse 88, respiratory rate 18, blood pressure 137/74, saturating 100% on room air. Intake yesterday was 1010. Weight on the bed scale today is 78.2 kg. General: The patient is seen lying in bed in no acute distress, awake, alert, and oriented, conversational. Extraocular muscles are intact. Tongue is moist. Neck is supple. There is a tunneled hemodialysis catheter present in the right chest wall. Cardiac: S1, S2. Trace edema in the right lower extremity and 1+ edema in the left lower extremity. Respiratory shows good air movement bilaterally. No crackle or rale. The abdomen is soft, obese and nontender. There is some mild pitting edema present in the flanks. Neurologic: No focal deficit. He is oriented, interactive and conversational. LABS: White count 9.7, hemoglobin 10.4, platelets 183. Sodium 142, potassium 3.9. INPATIENT MEDICATIONS: Reviewed by myself and noted his Dificid has been discontinued. Remainder of medications are unchanged from prior. PROBLEMS: 1. End stage renal disease on hemodialysis on a maintenance schedule of Wednesday, and Wednesday. There is mild hypervolemia present on exam today, however, I will not plan for extra dialysis treatment today in view of the ongoing vomiting and worsening diarrhea that he had. He will be dialyzed on Wednesday as per his regular schedule with goal fluid removal as tolerated by hemodynamics. His electrolytes are acceptable. His PermaCath is in good use. 2. Chronic systolic congestive heart failure with mild ongoing exacerbation. He had aggressive fluid removal over the past week. His daily weights have down trended, but there is still some peripheral edema present on exam. He will be dialyzed tomorrow as per his maintenance schedule and he continues on low dose Entresto and low dose beta claudia in view of his congestive heart failure. 3. Anemia of end stage renal disease. Hemoglobin is 10.4 today, which is optimal. He continues on Aranesp. 4. Hypotension of hemodialysis. The patient continues on midodrine on dialysis days. His blood pressures have been acceptable. 5. Clostridium (C) difficile colitis. The patient's Dificid is noted to be held and per GI input he is for fecal transplant.
[2018-05-31] MEDS: HumaLOG INSULIN (NovoLOG) PER UNIT SC SCH ×3 (07:12→17:30)
[2018-05-31] MEDS: MIDODRINE 5 MG TAB PO SCH ×2 (07:48→17:37)
[2018-05-31] MEDS ORDERED: MAG SULF 1GM/100ML (MAG RUN) 1 GM in APPROPRIATE DILUENT 1 EA IV ONE (11:00)
[2018-05-31] MEDS ORDERED: HEPARIN 1,000 UNITS/ML 10ML VIAL (FOR RADIOLOGY& DIALYSIS ONLY) IV ONE (12:15)
[2018-05-31] MEDS ORDERED: HEPARIN 1,000 UNITS/ML 10ML VIAL (FOR RADIOLOGY& DIALYSIS ONLY) XX ONE (12:15)
[2018-05-31 14:00] VITALS: BP 117/62
--- NOTE | 2018-05-31 14:24 | IPN ---
DATE OF SERVICE: 05/31/2018 SUBJECTIVE: Solitario is seen and examined this morning in the dialysis unit receiving his maintenance treatment. Reports he did not have any recurrent vomiting and that his stool is not watery today. He is tolerating his dialysis treatment without any issue. VITAL SIGNS: Temperature 98.6, pulse 91, respiratory rate 20, blood pressure 131/61, saturating 95 to 99% on room air. Intake yesterday was 780. Goal fluid removal today on dialysis will be 2 liters. GENERAL: Patient is seen awake, alert, oriented, comfortable, no acute distress. Extraocular muscles are intact. Tongue is moist. Neck is supple. There is a tunneled hemodialysis catheter present in the right chest wall that is in use. CARDIAC: S1, S2. Trace edema in the left lower extremity. RESPIRATORY: Shows clear air movement bilaterally. No crackle or rale. ABDOMEN: Is soft, obese, and nontender. There is mild pitting edema present in the flanks. NEUROLOGIC: No focal deficit. He is oriented, interactive, and conversational. LABS: White count 5.5, hemoglobin 9.4, platelets 162. Sodium 138, potassium 4.2, bicarbonate 23, glucose 75, magnesium 1.5. INPATIENT MEDICATIONS: He received 1 gram run of magnesium sulfate today. His remainder of his medications are unchanged from prior. PROBLEMS: 1. End-stage renal disease on hemodialysis on a maintenance schedule of Wednesday, , and Wednesday. Patient is tolerating his treatments well. His electrolytes are accetable. His volume status is accetable. His PermaCath is in good use. No changes are being made to the chronic prescription. 2. Chronic systolic congestive heart failure. He was aggressive dialyzed last week with significant fluid removal. Daily weights have down trended. Peripheral edema is now only trace. Continue with maintenance schedule of hemodialysis and in view of his CHF he also continues on low dose Entresto and low dose beta claudia. 3. Anemia of end-stage renal disease. Hemoglobin is 9.4 today which is suboptimal and the patient continues on Aranesp. 4. Hypotension of hemodialysis. Patient continues on midodrine on dialysis days. His blood pressures have been accetable. He is tolerating ultrafiltration. 5. Clostridium (C) difficile colitis, recurrent. Patient is pending fecal transplant is being followed by gastrointestinal (GI) and infectious diseases.
--- NOTE | 2018-05-31 14:48 | IPNPDOC ---
Text Note Date of Service The patient was seen on 05/31/18. NOTE Subjective: Pt still has diarrhea. Scheduled for Stool transplant. Denies CP/p alpitations. Objective: Vitals: (see below) General: No acute distress, laying comfortably in bed. HEENT: Moist mucous membranes. Neck: No JVD or lymphadenopathy. Dialysis catheter intact. No bleeding noted. Cardiac: RRR, No murmurs Pulm: Clear to auscultation b/l. No wheezing, rhonchi Abd: NT/ND + BS Ext: Trace edema bilateral lower extremity. No cyanosis. Labs (see below) Assessment/Plan Active/Acute Issues: 1. C. difficile colitis. s/p Dificid. Diarrhea persisted. Planned for stool tr ansplant. Infectious disease/gastroenterology consulted. 2. Elevated troponin with minimal EKG changes. Evaluated by , appreciate input. We'll avoid episodes of hypotension. History of CAD status post CABG as well as multiple stents. Continue home meds. Dr. Gaines on consult 3. History of end-stage renal disease on hemodialysis. Appreciate nephrology input. 4. History of systolic heart failure EF of 35%. Euvolemic. Fluid management as per nephrology on dialysis. 5. Diabetes mellitus - Levemir. cont sliding scale insulin. 6. Hyperlipidemia on statin 7. History of diabetic neuropathy on Neurontin 8. History of GERD on PPI 9. History of restless leg syndrome continue meds. 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 Diop who does not recommend any further interventions. Troponin 1.1 however patient is asymptomatic. Patient has been evaluated by Dr. Gaines earlier with recommendations for observation. The patient did note that he had a cardiac cath in February with no new obstructive lesions. Patient is asymptomatic. Continue to monitor on telemetry. DVT prophy: Heparin subcutaneous PT/OT on board. VS,Fishbone, I+O VS, Fishbone, I+O Laboratory Tests 05/31/18 05:54 Red Blood Count 3.06 L, Mean Corpuscular Volume 100.7 H, Mean Corpuscular Hemoglobin 30.7, Mean Corpuscular Hemoglobin Concent 30.5 L, Red Cell Distribution Width 20.3 H, Calcium Level 8.1 L Vital Signs Date Time Temp Pulse Resp B/P (MAP) Pulse Ox O2 Delivery O2 Flow Rate FiO2 05/31/18 06:16 91 131/61 05/31/18 06:00 98.6 20 96 I&O- Last 24 Hours up to 6 AM 05/31/18 05:59 Intake Total 780 ml Output Total 200 ml Balance 580 ml CRISPIN PIERCE MD May 31, 2018 14:48
--- NOTE | 2018-05-31 16:48 | IPN ---
DATE: 05/31/2018 Mr. Clark seems to be doing better today. What is interesting is that he has not received for fidaxomicin last night or this morning, and he has only had three bowel movements in the past 12 hours. He has no nausea or vomiting. He has some abdominal cramps and gas. No fever or chills. He is scheduled for a stool transplant in the morning. LABORATORY DATA: White count is 5.5, hemoglobin 9.4, hematocrit 30.8, platelets 162. Sodium 138, potassium 4.2, chloride 105, bicarbonate 23, BUN 54, creatinine 5.2, glucose 75, calcium 8.1, magnesium 1.5. PHYSICAL EXAMINATION: Temperature is 98.6, blood pressure 131/61, oxygen saturation 99% on room air. Pulse is 91. HEART: Normal S1, S2. No murmurs. Right chest wall hemodialysis catheter. LUNGS: Clear. No wheezes, rales, or rhonchi. ABDOMEN: Soft, obese, nontender. EXTREMITIES: Edema 1+ and left lower extremity trace on the right with an open lesion on the ceballos with some serous drainage. IMPRESSION: 1. Clostridium (C) difficile colitis with slow response to fidaxomicin. The patient has finished 20-day treatment and still has persistent diarrhea, and therefore is scheduled to have a fecal transplant tomorrow. Interesting that diarrhea has improved since he has been off for fidaxomicin. 2. End-stage renal disease, stable, doing well with hemodialysis. PLAN: Dr. Chow has him on the operating room (OR) schedule. Continue probiotics and kefir drinks at home. Avoid antibiotics if possible at all cost. Fidaxomicin will be discontinued. Hopefully the patient could be discharged 24 hours after stool transplantation.
[2018-05-31] MEDS ORDERED: GOLYTELY SOLN 4000 ML BTL PO ONE (17:00)
--- NOTE | 2018-05-31 17:36 | IPNPDOC ---
Date Seen The patient was seen on 05/31/18. Progress Note Interval History: Patient was treated with pulsed dose Fidaxomicin by ID, but continued to have u pto 5-7 bowel movements daily and for past two days he was having more symptoms ( as per patient). After discussing the risks and benefits of different options of treatment for C. difficile patient wanted to proceed with colonoscopy with minimal sedation ( by anesthesia) and stool transplant. Patient denies any abdominal pain, nausea, fever and chills. Exam: Vitals: reviewed General: Alert and oriented x 3, Chest: symmetric with bilateral clear air entry. Pacemaker in place. CVS: S1, S2 heard, normal, no murmurs . Abdomen: non-distended, Moderate obese, epigastric laparoscopic scars, soft, non-tender, no palpable masses, normal bowel sounds heard. Extremities: no pedal edema, pulses palpable. Labs: reviewed. Imaging tests: reviewed. Impression: - C. difficile diarrhea refractory to therapy with Dificid ( and prior therapy with vancomycin), with upto 5-6 bowel movements daily -- Will proceed with fecal transplant. Recommendations: - Patient educated about the test results, possible differential diagnoses and All questions answered. - Discussed all the options of therapy for C. difficile diarrhea. - Patient wanted to proceed with colonoscopy procedure with anesthesia and fecal transplant. Patient is educated about the elevated risks from procedure ( risk of bleeding from Plavix, perforation/tear in bowel wall, infection, urgent surgery, and risk of as well) and also discussed in detail the elevated risks from anesthesia ( due to his medical comorbidities). Patient verbalized understanding and agreed to proceed despite the risks. ( patient is at bedside and she was also explained about the risks). - Cardiology and anesthesia to review the patient prior to procedure. - Please follow up with ID recommendations. - Clear liquid diet. - Golytely 4 liters today ( complete by 12 midnight). - Dulcolax 20 mg at 6 PM. - NPO for procedure for 4 hours prior to procedure. Plan of care discussed with patient and primary team. Patient verbalized understanding and agreed with the plan. VS, I&O, 24H, Fishbone Vital Signs/I&O Vital Signs Date Time Temp Pulse Resp B/P (MAP) Pulse Ox O2 Delivery O2 Flow Rate FiO2 05/31/18 14:00 97.7 87 17 117/62 (80) 100 I&O- Last 24 Hours up to 6 AM 05/31/18 06:00 Intake Total 750 ml Output Total 250 ml Balance 500 ml Laboratory Data CBC/BMP Laboratory Tests 05/31/18 05:54 LAN HARRIS MD May 31, 2018 17:36
[2018-05-31] MEDS ORDERED: BISACODYL 5 MG TAB PO ONE (18:00)
[2018-05-31] MEDS: PRAVASTATIN 20 MG TAB PO SCH (20:46)
[2018-05-31] MEDS: rOPINIRole 1MG TAB PO SCH (20:46)
[2018-05-31] MEDS: FEBUXOSTAT 40 MG TABLET (ULORIC) PO SCH (20:47)
[2018-05-31] MEDS: CLOPIDOGREL 75 MG TAB PO SCH (20:47)
[2018-05-31] MEDS: GABAPENTIN 100 MG CAP PO SCH (20:47)
[2018-05-31] MEDS ORDERED: LEVEMIR (INSULIN DETEMIR) 1 UNITS/0.01ML SC SCH (21:15)
[2018-05-31] MEDS: LEVEMIR (INSULIN DETEMIR) 1 UNITS/0.01ML SC SCH (21:17)
[2018-05-31 22:00] VITALS: BP 103/56
[2018-05-31] MEDS: ACETAMINOPHEN 500 MG TAB PO PRN (23:01)
[2018-06-01] MEDS ORDERED: PREPARATION H OINTMENT (HEMORRHOID) PR PRN (00:30)
[2018-06-01] MEDS ORDERED: GOLYTELY SOLN 4000 ML BTL PO ONE (05:00)
[2018-06-01 06:00] VITALS: BP 114/60
[2018-06-01 06:33] LABS: HEMATOCRIT 29.8 % (42.0-52.0); HEMOGLOBIN 9.1 g/dl (13.5-17.5); MEAN CORPUSCULAR HEMOGLOBIN 30.4 pg (27.0-33.0); MEAN CORPUSCULAR HGB CONC 30.5 g/dl (32.0-36.5); MEAN CORPUSCULAR VOLUME 99.7 fl (80.0-96.0); PLATELET COUNT, AUTOMATED 161 10^3/uL (150-450); RED BLOOD COUNT 2.99 10^6/uL (4.30-6.10); WHITE BLOOD COUNT 4.4 10^3/uL (4.0-10.0)
[2018-06-01 06:54] LABS: CALCIUM LEVEL 8.1 MG/DL (8.8-10.2); CREATININE FOR GFR 3.54 MG/DL (0.70-1.30); GLOMERULAR FILTRATION RATE 18.9 (>49); MAGNESIUM LEVEL 1.9 MG/DL (1.8-2.4); POTASSIUM SERUM 3.8 MEQ/L (3.5-5.1)
[2018-06-01] MEDS ORDERED: FECAL MICROBIOTA PREPARATION 250 ML BTL (J3590) XX ONE ×2 (07:00→12:45)
[2018-06-01] MEDS: HumaLOG INSULIN (NovoLOG) PER UNIT SC SCH ×3 (07:30→17:30)
[2018-06-01] MEDS: CARVedilol 3.125 MG TAB PO SCH ×2 (08:12→21:01)
[2018-06-01] MEDS: ENTRESTO 24-26MG TABLET (SACUBITRIL/VALSARTAN) PO SCH ×2 (08:12→20:55)
[2018-06-01] MEDS: PANTOPRAZOLE 40MG TAB (PROTONIX) PO SCH ×2 (09:00→20:54)
[2018-06-01] MEDS: LACTOBACILLUS ACIDOPHILUS CAP (BACID) PO SCH ×3 (09:00→20:54)
--- NOTE | 2018-06-01 13:27 | IPN ---
DATE OF SERVICE: 06/01/2018 Mr. Solitario Clark was seen earlier this morning. He was laying supine in bed in no acute distress at rest. I was called in to see him again because he is planning to have colonoscopy. 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 He denies any chest pain, shortness of breath, palpitations, and there was no orthopnea or paroxysmal nocturnal dyspnea (PND) when I saw him. He does have minimal pretibial edema, and this has improved significantly and remains stable. His only complaint is the diarrhea associated with abdominal discomfort. There is no report of fever or chills. There was a concern prior to proceeding with his colonoscopy because of some minimally abnormal serum troponin reported earlier during this hospitalization. He does have a history of premature coronary artery disease that required multiple revascularization with percutaneous transluminal coronary angioplasty (PTCA)/stents and coronary artery bypass grafts (CABGs). He does have all the risk factors for coronary artery disease (CAD), including family history. On physical examination, the patient is alert and oriented, in no acute distress at rest, and his most recent vital signs reveal a blood pressure of 114/60 with a pulse of 77, respiration 18, and his maximum temperature was 98.5 degrees Fahrenheit with an oxygen saturation of 96% to 100% . He has a negative fluid balance reported to be 3.1 liters on 05/31/2018. Examination of head: Atraumatic. Neck is supple with . The lungs did not reveal any wheezing or crackles. The heart examination revealed a regular heart sound without gallops. The point of maximal impulse (PMI) is displaced inferiorly and laterally. There is no rub. I could not appreciate any murmurs. Abdomen is soft. Bowel sounds are active. Extremities reveal trace bilateral ankle edema. Neurological examination is negative for focal deficit. LABORATORIES: Basic metabolic profile (BMP) done today revealed a sodium of 137, potassium 3.8, chloride 102, CO2 29, BUN 27, creatinine 3.5, GFR 18.9, and fasting glucose 83, with a calcium of 8.1, serum magnesium is 1.9. Complete blood count (CBC) revealed a WBC of 4.4, hemoglobin 9.1, hematocrit 29.8, and platelet 161,000. IMPRESSION: Mr. Solitario Clark has been stable from a cardiac point of view. His abnormal serum troponin noted initially during this hospitalization was thought to be related to his underlying ischemic cardiomyopathy. He has been free of chest pain. He is going for a low-risk procedure, and he proceed as scheduled. Fluid overload should be avoided, and he will benefit from cardiac monitoring. He expressed understanding that this will be done while on the . Please do not hesitate to call if any questions.
[2018-06-01 14:00] VITALS: BP 109/49
--- NOTE | 2018-06-01 14:24 | IPNPDOC ---
Text Note Date of Service The patient was seen on 06/01/18. NOTE Subjective: Pt still has diarrhea. Looking forward to his stool transplant. De nies CP/palpitations. Objective: Vitals: (see below) General: No acute distress, laying comfortably in bed. HEENT: Moist mucous membranes. Neck: No JVD or lymphadenopathy. Dialysis catheter intact. No bleeding noted. Cardiac: RRR, No murmurs Pulm: Clear to auscultation b/l. No wheezing, rhonchi Abd: NT/ND + BS Ext: Trace edema bilateral lower extremity. No cyanosis. Labs (see below) Assessment/Plan Active/Acute Issues: 1. C. difficile colitis. s/p Dificid. Diarrhea persisted. Planned for stool transplant on 06/01 . Infectious disease/gastroenterology consulted. 2. Elevated troponin with minimal EKG changes. Evaluated by , appreciate input. We'll avoid episodes of hypotension. History of CAD status post CABG as well as multiple stents. Continue home meds. Dr. Gaines on consult, cleared for endoscopy. 3. History of end-stage renal disease on hemodialysis. Appreciate nephrology inp ut. 4. History of systolic heart failure EF of 35%. Euvolemic. Fluid management as per nephrology on dialysis. 5. Diabetes mellitus - Levemir. cont sliding scale insulin. 6. Hyperlipidemia on statin 7. History of diabetic neuropathy on Neurontin 8. History of GERD on PPI 9. History of restless leg syndrome continue meds. 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 Diop who does not recom mend any further interventions. Troponin 1.1 however patient is asymptomatic. Patient has been evaluated by Dr. Gaines earlier with recommendations for observation. The patient did note that he had a cardiac cath in February with no new obstructive lesions. Patient is asymptomatic. Continue to monitor on telemetry. DVT prophy: Heparin subcutaneous PT/OT on board. Overall prognosis guarded. VS,Fishbone, I+O VS, Fishbone, I+O Laboratory Tests 06/01/18 05:47 Red Blood Count 2.99 L, Mean Corpuscular Volume 99.7 H, Mean Corpuscular Hemoglobin 30.4, Mean Corpuscular Hemoglobin Concent 30.5 L, Red Cell Distribution Width 19.8 H, Calcium Level 8.1 L Vital Signs Date Time Temp Pulse Resp B/P (MAP) Pulse Ox O2 Delivery O2 Flow Rate FiO2 06/01/18 08:12 77 114/60 06/01/18 06:00 95.7 16 100 I&O- Last 24 Hours up to 6 AM 06/01/18 06:00 Intake Total 540 ml Output Total 3925 ml Balance -3385 ml CRISPIN PIERCE MD Jun 01, 2018 14:24
[2018-06-01] MEDS: HEPARIN SOD (PORCINE) 5000 UNITS/ML VIAL SQ SCH ×2 (16:12→21:00)
[2018-06-01] MEDS ORDERED: PROPOFOL 200 MG/20 ML VIAL As Ordered ONE (16:21)
[2018-06-01] MEDS ORDERED: PHENYLephrine HCL 500 MCG/5 ML (100MCG/ML) SYRINGE (J2370) As Ordered ONE (16:28)
--- NOTE | 2018-06-01 16:57 | ROOR ---
Patient Name: Solitario Clark Procedure Date: 06/01/2018 2:44 PM Date of : 1955 Age: 62 Room: [facility] Gender: Male Note Status: Finalized Procedure: Colonoscopy Indications: Fecal transplant for treatment of recurrent Clostridium difficile diarrhea, Chronic diarrhea Providers: Buddy Chow MD Referring MD: Ghulam Alvarado MD Requesting Provider: Medicines: Monitored Anesthesia Care Complications: No immediate complications. Procedure: Pre-Anesthesia Assessment: - Prior to the procedure, a History and Physical was performed, and patient medications and allergies were reviewed. The patient is competent. The risks and benefits of the procedure and the sedation options and risks were discussed with the patient. All questions were answered and informed consent was obtained. Patient identification and proposed procedure were verified by the physician, the nurse and the anesthesiologist in the procedure room. Mental Status Examination: alert and oriented. Airway Examination: normal oropharyngeal airway and neck mobility. Respiratory Examination: clear to auscultation. CV Examination: normal. Prophylactic Antibiotics: The patient does not require prophylactic antibiotics. Prior Anticoagulants: The patient has taken no previous anticoagulant or antiplatelet agents. ASA Grade Assessment: IV - A patient with severe systemic disease that is a constant threat to life. After reviewing the risks and benefits, the patient was deemed in satisfactory condition to undergo the procedure. The anesthesia plan was to use monitored anesthesia care (MAC). Immediately prior to administration of medications, the patient was re-assessed for adequacy to receive sedatives. The heart rate, respiratory rate, oxygen saturations, blood pressure, adequacy of pulmonary ventilation, and response to care were monitored throughout the procedure. The physical status of the patient was re-assessed after the procedure. The Colonoscope was introduced through the anus and advanced to the terminal ileum, with identification of the appendiceal orifice and IC valve. The colonoscopy was performed without difficulty. The patient tolerated the procedure well. The quality of the bowel preparation was poor. The terminal ileum and the ileocecal valve were photographed. Scope insertion time was 4 minutes. Scope withdrawal time was 6 minutes. The total duration of the procedure was 10 minutes. Findings: The perianal and digital rectal examinations were normal. The terminal ileum appeared normal. Fecal Microbiota Transplant (Bacteriotherapy): Donor stool was prepared by a third constitution party (purchased) as per protocol. Approximately 250 mL of the emulsified donor stool was instilled in the terminal ileum. A detailed colonoscopic exam could not be performed upon scope withdrawal secondary to limited visibility from the instilled stool. Two sessile polyps were found in the descending colon and transverse colon. The polyps were 5 to 8 mm in size. Polypectomy was not attempted due to the patient taking anticoagulation medication and inadequate bowel preparation. Copious quantities of semi-solid stool was found from rectum to cecum, interfering with visualization. Impression: - Preparation of the colon was poor. - The examined portion of the ileum was normal. - Two 5 to 8 mm polyps in the descending colon and in the transverse colon. Resection not attempted. - Stool from rectum to cecum. - Fecal Microbiota Transplant (Bacteriotherapy) performed in the terminal ileum. - No specimens collected. Recommendation: - Patient has a contact number available for emergencies. The signs and symptoms of potential delayed complications were discussed with the patient. Return to normal activities tomorrow. Written discharge instructions were provided to the patient. - Full liquid diet for 1 day, then advance as tolerated to resume previous diet. - Continue present medications. - Repeat colonoscopy in 1 year because the bowel preparation was poor and for surveillance. - Telephone GI clinic if symptomatic in 2 weeks. - Return to primary care physician. Buddy Chow MD Buddy Chow MD 06/01/2018 4:57:13 PM This report has been signed electronically. Number of Addenda: 0 Note Initiated On: 06/01/2018 2:44 PM Estimated Blood Loss: Estimated blood loss: none.
[2018-06-01] MEDS ORDERED: fentaNYL 100 MCG/2 ML INJECTION (J3010) IV PRN ×2 (17:15→17:45)
[2018-06-01] MEDS ORDERED: ONDANSETRON 4MG/2ML VIAL (J2405) IV PRN ×2 (17:15→17:45)
[2018-06-01] MEDS ORDERED: LR 1,000 ML IV SCH ×2 (17:15→17:45)
[2018-06-01 17:37] VITALS: BP 112/57
[2018-06-01] MEDS: MAGNESIUM OXIDE 400 MG TAB (MAG-OX) PO SCH (18:00)
[2018-06-01] MEDS: VITAMIN D 1,000 INTERNATIONAL UNITS TABLET PO SCH (18:00)
[2018-06-01] MEDS: predniSONE 2.5 MG TAB PO SCH (18:01)
[2018-06-01] MEDS: CALCITRIOL 0.25 MCG CAP (S0169) PO SCH (18:01)
[2018-06-01] MEDS: THIAMINE 100 MG TAB PO SCH (18:01)
[2018-06-01] MEDS: ASPIRIN 81 MG ENTERIC TAB PO SCH (18:01)
--- NOTE | 2018-06-01 18:05 | IPN ---
DATE: 06/01/2018 SUBJECTIVE: Patient seen and examined this morning at the bedside. He complains of difficulty sleeping last night. Reports that he had multiple bowel movements. He is pending a stool transplant today. VITAL SIGNS: Temperature 97.9, pulse 77, respiratory rate 18, blood pressure 109/49, saturating 99% on room air. Intake yesterday was 660. Dialysis yesterday removed 2500. Urine output yesterday was 1350. Weight in the bed scale today is 77.9 kg. GENERAL: Patient is seen awake, alert, oriented comfortable, lying in bed. No acute distress. Extraocular muscles are intact. Tongue is moist. NECK: Supple. There is a tunneled hemodialysis catheter present in the right chest wall with a dressing. CARDIAC: S1, S2. There is trace edema present in the extremities. RESPIRATORY: Lungs are clear to auscultation bilaterally. No crackle, rale, or wheeze. ABDOMEN: Soft, obese, and nontender. SKIN: Normal turgor and temperature. EXTREMITIES: Show only trace edema in the ankles. There is no focal deficit. He is oriented, interactive, and conversational. LABORATORY DATA: White count 4.4, hemoglobin 9.1, platelets 161. Sodium 137, potassium 3.8, bicarbonate 29, magnesium 1.9. INPATIENT MEDICATIONS: Reviewed by myself. Patient's insulin was adjusted per the primary team. Remainder of medications is unchanged from prior. PROBLEMS: 1. End-stage renal disease, on hemodialysis on Wednesday, , Wednesday schedule. He is tolerating his treatments well. His electrolytes are acceptable. His volume status is fairly compensated. Her Perm-A-Cath is in good use. No changes are being made to the chronic prescription. 2. Chronic systolic congestive heart failure. Patient is optimized from a fluid point of view. His volume is principally regulated by dialysis, and in view of congestive heart failure, he also continues on low-dose Entresto and low-dose beta claudia. We are adjusting his goal fluid removal as needed in view of the Clostridium (C) difficile diarrhea. 3. Anemia of end-stage renal disease. Hemoglobin is in the 9's, which is suboptimal, and the patient continues on Aranesp. We will also check iron panel. 4. Hypotension of hemodialysis. He continues on midodrine on dialysis days. Blood pressures have been acceptable. He is tolerating ultrafiltration. 5. Recurrent C. difficile colitis. He is pending fecal transplant today and followed by gastrointestinal (GI) and infectious diseases.
[2018-06-01] MEDS: FEBUXOSTAT 40 MG TABLET (ULORIC) PO SCH (20:53)
[2018-06-01] MEDS: PRAVASTATIN 20 MG TAB PO SCH (20:54)
[2018-06-01] MEDS: GABAPENTIN 100 MG CAP PO SCH (20:54)
[2018-06-01] MEDS: rOPINIRole 1MG TAB PO SCH (20:54)
[2018-06-01] MEDS: CLOPIDOGREL 75 MG TAB PO SCH (20:54)
[2018-06-01] MEDS: LEVEMIR (INSULIN DETEMIR) 1 UNITS/0.01ML SC SCH (21:00)
[2018-06-01] MEDS ORDERED: LEVEMIR (INSULIN DETEMIR) 1 UNITS/0.01ML SC ONE (21:30)
[2018-06-02 06:00] VITALS: BP 99/57
[2018-06-02] MEDS: THIAMINE 100 MG TAB PO SCH (06:35)
[2018-06-02] MEDS: VITAMIN D 1,000 INTERNATIONAL UNITS TABLET PO SCH (06:35)
[2018-06-02] MEDS: CARVedilol 3.125 MG TAB PO SCH ×2 (06:36→21:00)
[2018-06-02] MEDS: ENTRESTO 24-26MG TABLET (SACUBITRIL/VALSARTAN) PO SCH ×3 (06:37→21:13)
[2018-06-02] MEDS: predniSONE 2.5 MG TAB PO SCH (06:37)
[2018-06-02] MEDS: CALCITRIOL 0.25 MCG CAP (S0169) PO SCH (06:37)
[2018-06-02] MEDS: ASPIRIN 81 MG ENTERIC TAB PO SCH (06:37)
[2018-06-02] MEDS: PANTOPRAZOLE 40MG TAB (PROTONIX) PO SCH ×2 (06:37→21:12)
[2018-06-02] MEDS: LACTOBACILLUS ACIDOPHILUS CAP (BACID) PO SCH ×3 (06:38→21:12)
[2018-06-02] MEDS: MAGNESIUM OXIDE 400 MG TAB (MAG-OX) PO SCH (06:38)
[2018-06-02] MEDS: HEPARIN SOD (PORCINE) 5000 UNITS/ML VIAL SQ SCH ×2 (06:39→21:00)
[2018-06-02 06:47] LABS: HEMATOCRIT 26.3 % (42.0-52.0); HEMOGLOBIN 8.3 g/dl (13.5-17.5); MEAN CORPUSCULAR HEMOGLOBIN 31.2 pg (27.0-33.0); MEAN CORPUSCULAR HGB CONC 31.6 g/dl (32.0-36.5); MEAN CORPUSCULAR VOLUME 98.9 fl (80.0-96.0); PLATELET COUNT, AUTOMATED 135 10^3/uL (150-450); RED BLOOD COUNT 2.66 10^6/uL (4.30-6.10); WHITE BLOOD COUNT 3.8 10^3/uL (4.0-10.0)
[2018-06-02 07:08] LABS: CALCIUM LEVEL 8.1 MG/DL (8.8-10.2); CREATININE FOR GFR 4.85 MG/DL (0.70-1.30); GLOMERULAR FILTRATION RATE 13.1 (>49); MAGNESIUM LEVEL 1.9 MG/DL (1.8-2.4); PERCENT SATURATION 17.9 % (19.7-50.0)
[2018-06-02] MEDS ORDERED: IRON SUCROSE 100MG 5ML VIAL (J1756 PER 1MG) IV SCH (08:15)
[2018-06-02] MEDS: HumaLOG INSULIN (NovoLOG) PER UNIT SC SCH ×3 (08:43→17:32)
[2018-06-02] MEDS: MIDODRINE 5 MG TAB PO SCH ×2 (12:17→16:47)
--- NOTE | 2018-06-02 14:44 | IPN ---
DATE: 06/02/2018 SUBJECTIVE: Patient is seen and examined this morning at the bedside. Denies any complaints. He had the fecal transplant yesterday, reports semiformed stool. Intake and output yesterday has not been recorded. Weight on the bed scale today is not recorded. PHYSICAL EXAMINATION: VITAL SIGNS: Temperature 97.6, pulse 83, respiratory rate 14, blood pressure 99/57, saturating 97% on room air. GENERAL: Patient is seen awake, alert, oriented, sitting out of bed to the chair comfortable. No acute distress. Extraocular muscles are intact. Tongue is moist. NECK: Supple. There is a tunneled hemodialysis catheter present in the right chest wall with a dressing. CARDIAC: S1, S2. There is trace edema in the left lower extremity. RESPIRATORY: Lungs are clear to auscultation bilaterally. No crackle, rale, or wheeze. ABDOMEN: Soft and nontender. There are bowel sounds. NEUROLOGIC: There is no focal deficit. He is interactive, conversational and oriented times three. PSYCHIATRIC: Appropriate mood and affect. LABORATORIES: White count 3.8, hemoglobin 8.3, platelets 135. Sodium 137, potassium 4.0, transferrin saturation of 17%. INPATIENT MEDICATIONS: Insulin was adjusted per the primary team. Remainder of medications are unchanged from prior. PROBLEMS: 1. End-stage renal disease, on hemodialysis on Wednesday, , Wednesday schedule. He is tolerating his treatments well. His electrolytes are acceptable. His volume status is fairly compensated. Perm-A-Cath is in good use. No changes are being made to the chronic prescription. He will be dialyzed today with decreased goal fluid removal as 1.5 liters as tolerated by hemodynamics in view of the fact that he was nothing by mouth for most of the day yesterday. 2. Chronic systolic congestive heart failure. Volume status is regulated by dialysis. He continues on low dose Entresto and beta claudia. He is compliant with the fluid restriction. 3. Anemia related to chronic renal failure and iron deficiency anemia. Transferrin saturation is 17%. He is being ordered for Venofer with hemodialysis. He will also continue on Aranesp. I do note that the patient had significant pancytopenia on his last admission and today's CBC does show a dip down in his white count and platelets. We will monitor this. 4. Hypotension of hemodialysis. Continue midodrine on dialysis days. 5. Recurrent C. difficile colitis. Status post stool transplant yesterday.
[2018-06-02] MEDS: rOPINIRole 1MG TAB PO SCH (21:12)
[2018-06-02] MEDS: FEBUXOSTAT 40 MG TABLET (ULORIC) PO SCH (21:12)
[2018-06-02] MEDS: PRAVASTATIN 20 MG TAB PO SCH (21:12)
[2018-06-02] MEDS: GABAPENTIN 100 MG CAP PO SCH (21:12)
[2018-06-02] MEDS: CLOPIDOGREL 75 MG TAB PO SCH (21:13)
[2018-06-02] MEDS: LEVEMIR (INSULIN DETEMIR) 1 UNITS/0.01ML SC SCH (21:14)
[2018-06-02 22:00] VITALS: BP 91/49
[2018-06-03 06:00] VITALS: BP 97/50
[2018-06-03 06:31] LABS: HEMATOCRIT 30.1 % (42.0-52.0); HEMOGLOBIN 9.6 g/dl (13.5-17.5); MEAN CORPUSCULAR HEMOGLOBIN 30.8 pg (27.0-33.0); MEAN CORPUSCULAR HGB CONC 31.9 g/dl (32.0-36.5); MEAN CORPUSCULAR VOLUME 96.5 fl (80.0-96.0); PLATELET COUNT, AUTOMATED 170 10^3/uL (150-450); RED BLOOD COUNT 3.12 10^6/uL (4.30-6.10); WHITE BLOOD COUNT 4.1 10^3/uL (4.0-10.0)
[2018-06-03 06:55] LABS: CALCIUM LEVEL 8.3 MG/DL (8.8-10.2); CREATININE FOR GFR 3.29 MG/DL (0.70-1.30); GLOMERULAR FILTRATION RATE 20.5 (>49); MAGNESIUM LEVEL 1.7 MG/DL (1.8-2.4); POTASSIUM SERUM 3.5 MEQ/L (3.5-5.1)
[2018-06-03] MEDS: HumaLOG INSULIN (NovoLOG) PER UNIT SC SCH ×3 (07:30→17:47)
[2018-06-03] MEDS: ENTRESTO 24-26MG TABLET (SACUBITRIL/VALSARTAN) PO SCH (08:15)
[2018-06-03] MEDS: HEPARIN SOD (PORCINE) 5000 UNITS/ML VIAL SQ SCH ×2 (08:37→21:00)
[2018-06-03] MEDS: VITAMIN D 1,000 INTERNATIONAL UNITS TABLET PO SCH (08:38)
[2018-06-03] MEDS: ASPIRIN 81 MG ENTERIC TAB PO SCH (08:38)
[2018-06-03] MEDS: PANTOPRAZOLE 40MG TAB (PROTONIX) PO SCH ×2 (08:39→20:59)
[2018-06-03] MEDS: MAGNESIUM OXIDE 400 MG TAB (MAG-OX) PO SCH (08:39)
[2018-06-03] MEDS: LACTOBACILLUS ACIDOPHILUS CAP (BACID) PO SCH ×3 (08:39→20:59)
[2018-06-03] MEDS: CALCITRIOL 0.25 MCG CAP (S0169) PO SCH (08:40)
[2018-06-03] MEDS: CARVedilol 3.125 MG TAB PO SCH ×2 (08:40→21:00)
[2018-06-03] MEDS: THIAMINE 100 MG TAB PO SCH (08:40)
[2018-06-03 08:45] VITALS: BP_SYST 102; BP_SYST 104; BP_SYST 98; BP_DIAS 45; BP_DIAS 48; BP_DIAS 50
[2018-06-03] MEDS: predniSONE 2.5 MG TAB PO SCH (10:21)
--- NOTE | 2018-06-03 11:08 | IPNPDOC ---
Text Note Date of Service The patient was seen on 06/03/18. NOTE Subjective: Diarrhea improving. Has been borderline hypotensive and not receiv ing entresto/bb. No CP/SOB. Objective: Vitals: (see below) General: No acute distress, laying comfortably in bed. HEENT: Moist mucous membranes. Neck: No JVD or lymphadenopathy. Dialysis catheter intact. No bleeding noted. Cardiac: RRR, No murmurs Pulm: Clear to auscultation b/l. No wheezing, rhonchi Abd: NT/ND + BS Ext: Trace edema bilateral lower extremity. No cyanosis. Labs (see below) Assessment/Plan Active/Acute Issues: 1. C. difficile colitis. s/p Dificid. S/p stool transplant on 06/01 . Infectious disease/gastroenterology consulted. Per Dr. Chow, can be d/c when medically cleared. Will need f/u for repeat colonoscopy in 1 year for polyp eval given poor prep. Pt aware. 2. Elevated troponin with minimal EKG changes. Evaluated by , appreciate input. We'll avoid episodes of hypotension. History of CAD status post CABG as well as multiple stents. Continue home meds. Dr. Gaines on consult, cleared for endoscopy. 3. History of end-stage renal disease on hemodialysis. Appreciate nephrology input. 4. History of systolic heart failure EF of 35%. Euvolemic. Fluid management as per nephrology on dialysis. 5. Diabetes mellitus - Levemir. cont sliding scale insulin. 6. Hyperlipidemia on statin 7. History of diabetic neuropathy on Neurontin 8. History of GERD on PPI 9. History of restless leg syndrome continue meds. 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 Diop who does not recommend any further interventions. Troponin 1.1 however patient is asymptomatic. Patient has been evaluated by Dr. Gaines earlier with recommendations for observation. The patient did note that he had a cardiac cath in February with no new obstructive lesions. Patient is asymptomatic. Continue to monitor on telemetry. 11. Hypotension. On midodrine, Discussed with Dr. Vanessa about possibly increasing midodrine, appreciate input. Asymptomatic. Afebrile. DVT prophy: Heparin subcutaneous PT/OT on board. Overall prognosis guarded. VS,Fishbone, I+O VS, Fishbone, I+O Laboratory Tests 06/03/18 06:14 Red Blood Count 3.12 L, Mean Corpuscular Volume 96.5 H, Mean Corpuscular Hemoglobin 30.8, Mean Corpuscular Hemoglobin Concent 31.9 L, Red Cell Distribution Width 18.8 H, Calcium Level 8.3 L Vital Signs Date Time Temp Pulse Resp B/P (MAP) Pulse Ox O2 Delivery O2 Flow Rate FiO2 06/03/18 08:40 76 97/50 06/03/18 06:00 97.2 18 99 06/01/18 16:45 2 I&O- Last 24 Hours up to 6 AM0 06/03/18 06:00 Intake Total 900 ml Output Total 1650 ml Balance -750 ml CRISPIN PIERCE MD Jun 03, 2018 11:08
[2018-06-03] MEDS: MIDODRINE 5 MG TAB PO SCH (12:18)
[2018-06-03 14:00] VITALS: BP 138/72
--- NOTE | 2018-06-03 14:33 | IPN ---
DATE: 06/03/2018 Solitario seems to be doing very well except for low blood pressure even though patient is not symptomatic. He denies any dizziness, chest pain, shortness of breath. His diarrhea has markedly improved after he received a stool transplantation on 06/01/2017. He states he has some gas and very small bowel movements that are not frequent. Yesterday there was a documentation of two bowel movements (BM). On physical exam temperature is 97.2, pulse 76, respirations 18, blood pressure 97/50, O2 sat 99% on room air. Heart: Normal S1, S2. Systolic ejection murmur 2/6 unchanged. Lungs are clear. No wheezes or rhonchi. Abdomen: Slightly obese, soft, nontender. Extremities: Trace edema bilaterally. IMPRESSION: 1. C difficile with daptomycin treatment over 2 weeks. His status post stool transplantation on 06/01/2018 with marked improvement. 2. End-stage renal disease on hemodialysis doing well. 3. Mild hypotension being monitored, history of systolic heart failure with ejection of 35%. PLAN: Infectious disease signing off. Patient encouraged to continue with probiotics. He is taking three times a day. Judicious use of antibiotics is necessary to avoid relapse of C difficile. MTDD
[2018-06-03] MEDS: CLOPIDOGREL 75 MG TAB PO SCH (20:59)
[2018-06-03] MEDS: PRAVASTATIN 20 MG TAB PO SCH (20:59)
[2018-06-03] MEDS: GABAPENTIN 100 MG CAP PO SCH (20:59)
[2018-06-03] MEDS: FEBUXOSTAT 40 MG TABLET (ULORIC) PO SCH (20:59)
[2018-06-03] MEDS: rOPINIRole 1MG TAB PO SCH (20:59)
[2018-06-03] MEDS: LEVEMIR (INSULIN DETEMIR) 1 UNITS/0.01ML SC SCH (21:00)
[2018-06-03 22:00] VITALS: BP 98/51
--- NOTE | 2018-06-03 23:16 | IPN ---
DATE: 06/03/2017 SUBJECTIVE: Patient seen and examined this morning at the bedside. Denies any acute overnight events or issues. Is still having some watery stool, but he reports that the volume is small. His blood pressures have been soft and he has been receiving the carvedilol, but not the Entresto. VITAL SIGNS: Temperature 98.8, pulse 82, respiratory rate 16, blood pressure 138/72, saturating 94 to 99% on room air. Intake yesterday was 720. Dialysis yesterday removed 1500. Net negative 1 liter. Weight on the bed scale today is 77.6 kg. GENERAL: The patient is seen sitting out of bed to the chair. Awake, alert, oriented and comfortable, no acute distress. Extraocular muscles are intact. Tongue is moist. Jugular veins are not elevated while he is sitting upright. CARDIAC: S1, S2. Regular rate, systolic murmur. There is a tunneled hemodialysis catheter present in the right chest wall with dressing. LUNGS: Clear to auscultation bilaterally. No crackles or rales. ABDOMEN: Soft, obese, nontender. EXTREMITIES: Trace edema bilaterally. NEUROLOGICAL: Oriented times three. No focal deficit. LABS: White count 4.1, hemoglobin 9.6, platelet 170. Sodium 135, potassium 3.5. Magnesium 1.7. INPATIENT MEDICATIONS: His Entresto has been discontinued. His midodrine has been made daily. Remainder of medications are unchanged from prior. PROBLEMS: 1. End-stage renal disease on hemodialysis on Wednesday, , Wednesday schedule. Tolerating his treatments well. Electrolytes are acceptable. Volume status is fairly compensated. No changes are being made to his chronic prescription. Next dialysis will be on Wednesday. 2. Chronic systolic congestive heart failure. Volume status is principally regulated by dialysis. Continue with his maintenance schedule. Entresto is being discontinued due to hypotension. He has not been recieving most of his doses the past couple of days. Continue low dose beta claudia. He is compliant with fluid restriction. 3. Chronic hypotension. Continue midodrine and it is being adjusted for daily formulation instead of dialysis days only. 4. Anemia related chronic renal failure and iron deficiency anemia. T-sat of 17%. He is being ordered for Venofer with hemodialysis. He will also continue on Aranesp. 5. Recurrent C. difficile colitis. Status post stool transplant.
[2018-06-04 06:00] VITALS: BP 103/55
[2018-06-04 06:00] LABS: HEMATOCRIT 28.3 % (42.0-52.0); HEMOGLOBIN 8.8 g/dl (13.5-17.5); MEAN CORPUSCULAR HEMOGLOBIN 30.7 pg (27.0-33.0); MEAN CORPUSCULAR HGB CONC 31.1 g/dl (32.0-36.5); MEAN CORPUSCULAR VOLUME 98.6 fl (80.0-96.0); PLATELET COUNT, AUTOMATED 128 10^3/uL (150-450); RED BLOOD COUNT 2.87 10^6/uL (4.30-6.10); WHITE BLOOD COUNT 3.7 10^3/uL (4.0-10.0)
[2018-06-04] MEDS: PANTOPRAZOLE 40MG TAB (PROTONIX) PO SCH ×2 (06:21→21:26)
[2018-06-04] MEDS: ASPIRIN 81 MG ENTERIC TAB PO SCH (06:22)
[2018-06-04] MEDS: VITAMIN D 1,000 INTERNATIONAL UNITS TABLET PO SCH (06:22)
[2018-06-04] MEDS: MAGNESIUM OXIDE 400 MG TAB (MAG-OX) PO SCH (06:22)
[2018-06-04] MEDS: THIAMINE 100 MG TAB PO SCH (06:22)
[2018-06-04] MEDS: CALCITRIOL 0.25 MCG CAP (S0169) PO SCH (06:23)
[2018-06-04] MEDS: LACTOBACILLUS ACIDOPHILUS CAP (BACID) PO SCH ×3 (06:23→21:26)
[2018-06-04] MEDS: CARVedilol 3.125 MG TAB PO SCH ×2 (06:23→21:27)
[2018-06-04] MEDS: predniSONE 2.5 MG TAB PO SCH (06:23)
[2018-06-04] MEDS: HEPARIN SOD (PORCINE) 5000 UNITS/ML VIAL SQ SCH ×2 (06:24→21:27)
[2018-06-04 06:30] LABS: CALCIUM LEVEL 8.2 MG/DL (8.8-10.2); CREATININE FOR GFR 4.46 MG/DL (0.70-1.30); GLOMERULAR FILTRATION RATE 14.5 (>49); MAGNESIUM LEVEL 1.8 MG/DL (1.8-2.4); POTASSIUM SERUM 4.3 MEQ/L (3.5-5.1)
[2018-06-04] MEDS: HumaLOG INSULIN (NovoLOG) PER UNIT SC SCH ×3 (07:02→17:53)
[2018-06-04] MEDS: MIDODRINE 5 MG TAB PO SCH ×2 (08:19→13:13)
[2018-06-04] MEDS ORDERED: HEPARIN 1,000 UNITS/ML 10ML VIAL (FOR RADIOLOGY& DIALYSIS ONLY) XX ONE (11:00)
[2018-06-04] MEDS ORDERED: HEPARIN 1,000 UNITS/ML 10ML VIAL (FOR RADIOLOGY& DIALYSIS ONLY) IV ONE (12:00)
[2018-06-04 14:00] VITALS: BP 94/50
--- NOTE | 2018-06-04 17:13 | IPN ---
DATE: 06/04/2018 Patient seen and examined. Only one episode of loose stool today. Denies any chest pain, pressure, or discomfort. Denies any fevers or chills. Status post dialysis. Vital signs: Temperature 96.7, left-sided 75, respirations 16, blood pressure 94/50, pulse oximetry 100% on room air. LABORATORY DATA: WBC 3.7, hemoglobin and hematocrit 8.8/28.3, platelets 128. Chemistry: Sodium 133, potassium 4.3, chloride 99, bicarbonate 27, BUN 20, creatinine 4.46. PHYSICAL EXAMINATION: GENERAL: Patient alert, comfortable in no acute distress. HEENT: Normocephalic, atraumatic. PULMONARY: Bilaterally clear. CARDIAC: Regular, S1, S2. ABDOMEN: Soft, nontender. Positive bowel sounds. EXTREMITIES: Increased edema, bilateral lower extremities. ASSESSMENT AND PLAN: This is a 62-year-old male patient with underlying medical history of end-stage renal disease, on dialysis Wednesday, , Wednesday, coronary artery disease with coronary artery bypass graft (CABG) with multiple stents as well, systolic congestive heart failure (CHF) with ejection fraction 35%, severe hypokinesis, chronic obstructive pulmonary disease (COPD), on 2 liters oxygen at night, and on steroids at home, dyslipidemia, diabetes with also pacemaker. History of gout. The patient recently treated with altered mental status, fevers, and pneumonia. Discharged home. Admitted with Clostridium (C) difficile colitis. 2. C. difficile colitis, status post Dificid, status post stool transplant on June 01. Infectious disease and gastrointestinal (GI) have been consulted. Per Dr. Chow, patient is cleared from GI perspective for discharge. Need repeat in 1 year given poor prep. 3. Elevated troponin. Minimal EKG changes. Evaluated by cardiology, Dr. Gaines. Will avoid episodes of hypotension. 4. History of coronary artery disease and CABG as well as multiple stents. Continue home medication. Further recommendations as per cardiology. Patient was cleared by cardiology for endoscopy. 5. History of end-stage renal disease, on hemodialysis. Appreciate nephrology input. Continue current medication. 6. Systolic CHF. Ejection fraction 35%. Currently euvolemic. Further management of fluid status as per nephrology. 7. Diabetes mellitus. Continue basal bolus insulin. Follow fingersticks. 8. Dyslipidemia. Continue statin. 9. Diabetic neuropathy. Continue Neurontin. 10. Gastroesophageal reflux disease (GERD). Continue proton pump inhibitor (PPI). 11. Restless leg syndrome. Continue current medication. 12. Pacemaker-mediated tachycardia. Discussed with Dr. Diop, who does not recommend further intervention. Cardiology consulted. Patient had a cardiac catheterization in February with no new obstructive lesions. Currently asymptomatic. 13. Hypotension, on midodrine. Dosage has been adjusted by nephrology. Currently asymptomatic. 14. Coronary artery disease with multiple stents and CABG. Continue aspirin, Coreg, Plavix. 15. Patient on midodrine for hypotension. Continue pravastatin. 16. Deep vein thrombosis (DVT) prophylaxis. Heparin subcutaneous. DISPOSITION: Likely discharge in the next 24 hours given patient is feeling a lot better with resolving diarrhea.
[2018-06-04] MEDS: rOPINIRole 1MG TAB PO SCH (21:26)
[2018-06-04] MEDS: CLOPIDOGREL 75 MG TAB PO SCH (21:26)
[2018-06-04] MEDS: FEBUXOSTAT 40 MG TABLET (ULORIC) PO SCH (21:26)
[2018-06-04] MEDS: PRAVASTATIN 20 MG TAB PO SCH (21:26)
[2018-06-04] MEDS: GABAPENTIN 100 MG CAP PO SCH (21:26)
[2018-06-04] MEDS: LEVEMIR (INSULIN DETEMIR) 1 UNITS/0.01ML SC SCH (21:27)
[2018-06-04 22:00] VITALS: BP 106/55
[2018-06-05 06:00] VITALS: BP 104/54
[2018-06-05 06:00] LABS: HEMATOCRIT 28.6 % (42.0-52.0); HEMOGLOBIN 8.9 g/dl (13.5-17.5); MEAN CORPUSCULAR HEMOGLOBIN 30.4 pg (27.0-33.0); MEAN CORPUSCULAR HGB CONC 31.1 g/dl (32.0-36.5); MEAN CORPUSCULAR VOLUME 97.6 fl (80.0-96.0); PLATELET COUNT, AUTOMATED 156 10^3/uL (150-450); RED BLOOD COUNT 2.93 10^6/uL (4.30-6.10); WHITE BLOOD COUNT 3.9 10^3/uL (4.0-10.0)
[2018-06-05 06:18] LABS: ALBUMIN 2.9 GM/DL (3.2-5.2); CALCIUM LEVEL 8.3 MG/DL (8.8-10.2); CREATININE FOR GFR 3.24 MG/DL (0.70-1.30); GLOMERULAR FILTRATION RATE 20.9 (>49); MAGNESIUM LEVEL 1.8 MG/DL (1.8-2.4); PHOSPHORUS LEVEL 3.5 MG/DL (2.5-4.9)
[2018-06-05] MEDS: HumaLOG INSULIN (NovoLOG) PER UNIT SC SCH ×2 (07:24→12:07)
[2018-06-05] MEDS: LACTOBACILLUS ACIDOPHILUS CAP (BACID) PO SCH (08:07)
[2018-06-05] MEDS: MAGNESIUM OXIDE 400 MG TAB (MAG-OX) PO SCH (08:07)
[2018-06-05] MEDS: CALCITRIOL 0.25 MCG CAP (S0169) PO SCH (08:07)
[2018-06-05 08:08] VITALS: BP 104/54
[2018-06-05] MEDS: VITAMIN D 1,000 INTERNATIONAL UNITS TABLET PO SCH (08:08)
[2018-06-05] MEDS: CARVedilol 3.125 MG TAB PO SCH (08:08)
[2018-06-05] MEDS: THIAMINE 100 MG TAB PO SCH (08:08)
[2018-06-05] MEDS: PANTOPRAZOLE 40MG TAB (PROTONIX) PO SCH (08:08)
[2018-06-05] MEDS: MIDODRINE 5 MG TAB PO SCH ×2 (08:08→12:07)
[2018-06-05] MEDS: ASPIRIN 81 MG ENTERIC TAB PO SCH (08:09)
[2018-06-05] MEDS: predniSONE 2.5 MG TAB PO SCH (08:09)
[2018-06-05] MEDS: HEPARIN SOD (PORCINE) 5000 UNITS/ML VIAL SQ SCH (08:10)
[2018-06-05] MEDS ORDERED: TOUJ1.2I SC (12:06)
[2018-06-05] MEDS ORDERED: MIDO5TA PO (12:06)
[2018-06-05] MEDS ORDERED: ACID1CAP PO (12:12)
--- NOTE | 2018-06-05 16:09 | DSES ---
DATE OF ADMISSION: 05/11/2018 DATE OF DISCHARGE: 06/05/2018 PRIMARY CARE PROVIDER AND HEALTH EDUCATOR: José Dinh MD WIRE ANNEALER: Buddy Chow MD INFECTIOUS DISEASE: Jackie Ellison MD FINAL DIAGNOSES: Clostridium (C) difficile colitis, troponin elevation, history of coronary artery disease with coronary artery bypass graft (CABG) and multiple stents, end-stage renal disease on hemodialysis, systolic congestive heart failure (CHF) with ejection fraction of 35%, diabetes mellitus, dyslipidemia, diabetic neuropathy, gastroesophageal reflux disease (GERD), restless legs, pacemaker, mediated tachycardia, hypotension, coronary artery disease, anemia of chronic disease, gait instability. HISTORY OF PRESENT ILLNESS: This is a 62-year-old male patient with underlying medical history of end-stage renal disease on dialysis Wednesday, , Wednesday, coronary artery disease with CABG and multiple stents, chronic obstructive pulmonary disease (COPD) on 2 liters oxygen, steroid dependent, systolic CHF with ejection fraction of 35%, dyslipidemia, diabetes, status post pacemaker, also has history of gout, recently admitted for pneumonia, presented to the emergency room this time with 3-4 days history of loose stool, abdominal pain. Denies any nausea or vomiting. Reported generalized weakness. Denies any cough, chest pain, pressure or discomfort. Denies any fevers or chills. In the emergency room, stool was positive for C. difficile. Patient had mild elevation of troponin. Denies any shortness of breath. HOSPITAL COURSE: Patient admitted to the hospital. Initially started on vancomycin with no significant improvement. Subsequently, treatment is escalated to Dificid with mild improvement. Hospital course complicated with anemia of chronic disease requiring transfusion. Following transfusion, patient was fluid overloaded requiring multiple [id number] dialysis. Hospital course also complicated with deconditioning, gait instability requiring physical therapy. Despite prolonged treatment course of Dificid, patient continued to have multiple diarrhea. Infectious disease was consulted. Different options have been explored. Gastroenterology (GI) has also been consulted. Cardiology has also been consulted due to troponin elevation and EKG changes. It was determined that patient most likely had demand ischemia due to C. difficile colitis. Echo has been appreciated. Patient also refused stool transplant via nasogastric (NG) tube. Subsequently, the case was discussed with cardiology who cleared the patient for colonoscopy with stool transplant. Patient underwent procedure with marked improvement of patient's diarrhea and patient also passed physical therapy. Currently patient is euvolemic, tolerating oral with minimal diarrhea, ready to be discharged with further care as outpatient. VITAL SIGNS: Temperature 97.3, pulse 71, respirations 18, blood pressure 104/54, pulse oximetry 98% on room air. LABORATORY DATA: WBC 3.9, hemoglobin and hematocrit 8.9/28.6, platelets 156. Chemistry: Sodium 135, potassium 4, chloride 100, bicarbonate 30, BUN 11, creatinine 3.24. PHYSICAL EXAMINATION: GENERAL: Patient alert, comfortable, in no acute distress. HEENT: Normocephalic, atraumatic. PULMONARY: Bilateral clear. CARDIAC: Regular, S1, S2, 2/6 systolic murmur. ABDOMEN: Soft, nontender. EXTREMITIES: Trace edema bilateral lower extremities. DISCHARGE MEDICATIONS: - probiotics by mouth three times a day - acetaminophen 1000 mg by mouth twice a day as needed - aspirin 81 mg by mouth daily - Dulcolax 5 mg by mouth daily as needed - calcitriol 0.25 mcg by mouth daily - Coreg 3.125 mg by mouth twice a day - vitamin D3 2000 units by mouth daily - Plavix 75 mg by mouth nightly - Colace 100 mg by mouth twice a day as needed - Uloric 80 mg by mouth nightly - folic acid 2400 mcg by mouth daily - gabapentin 100 mg by mouth nightly - Humulin R before food and nightly - linaclotide 290 mcg by mouth daily as needed - melatonin 5 mg by mouth nightly - nitroglycerin 0.4 mg sublingual as needed - Zofran 4 mg by mouth every 8 hours as needed - Protonix 40 mg by mouth twice a day - MiraLAX 17 grams by mouth daily as needed - pravastatin 80 mg by mouth nightly - prednisone 2.5 mg by mouth daily - Requip 1 mg by mouth nightly - Senokot 8.6 mg by mouth twice a day as needed - simethicone 80 mg by mouth every 6 hours as needed - thiamine 250 mg by mouth daily - midodrine has been increased to 5 mg by mouth twice a day on dialysis days - Toujeo decreased 20 units subcutaneous nightly DISCHARGE INSTRUCTIONS: Please see outreach rep in one year for colonoscopy. Please see rf design engineer for dialysis. Next dialysis session on Wednesday. Please see alligator shear operator in 7 days. Consider elective cardiac catheterization as per cardiology. Restart Entresto as per cardiology. Entresto on hold temporarily due to persistent hypotension. Daily weight. Return to hospital if symptoms worsen. TIME SPENT: 40 minutes arranging and coordinating discharge.
--- NOTE | 2018-06-06 12:11 | IPN ---
DATE: 06/04/2018 Mr. Clark is seen this morning during hemodialysis. He is feeling better and denies any nausea, vomiting or diarrhea. He does have slight small stools since he had his fecal transplant done. He has been treated for Clostridium (C.) difficile colitis and is feeling much better. He has history of severe systolic congestive heart failure, which has been reasonably well-compensated with dialysis. The patient reports that he has been ambulating in the hallway without any problems. PHYSICAL EXAMINATION: Temperature 97.6 degrees Fahrenheit, heart rate 80 per minute and respiratory rate 16 per minute. Blood pressure 103/55 mmHg and oxygen saturation 99% on room air. His head is atraumatic. His right eye is blind. Neck veins are moderately distended and a right-sided internal jugular vein hemodialysis catheter is in place. He has no oral thrush or ulcers. Heart sounds are regular and there is no pericardial friction rub. Lungs sound clear to auscultation. Abdomen is soft and nontender and bowel sounds are normal. Extremities have no cyanosis or clubbing. Skin has no rash or ulcers. Neurologically, he is awake, alert and oriented times three. Today's labs show WBC count 3.7, hemoglobin 8.8 and hematocrit 28.3. Platelets 128. Sodium 133, potassium 4.3, CO2 27, BUN 20 and creatinine 4.46. Glucose 124 and calcium 8.2. PROBLEMS: 1. End-stage renal disease. The patient is being dialyzed today and he is tolerating his dialysis treatment very well. We are going to try to remove about 2.5 liters of fluid. 2. Chronic systolic congestive heart failure. His volume status has been reasonably well-compensated with dialysis. We are removing 2.5 liters of fluid today and he seems to be tolerating it well. The patient remains on oral fluid restriction of 1500 per day or less. 3. Anemia. At this point, his anemia has been slightly worse but no significant change. He could be mildly hemodiluted due to volume overload. We will monitor and continue with Aranesp once a week. 4. Clostridium (C.) difficile colitis. The patient has been treated with fecal transplant and his symptoms have improved. I would suggest to advance his diet to regular diet and he could probably be ready for discharge in the next day or two. 5. Coronary artery disease. The patient is currently asymptomatic and remains on his chronic therapy. 6. Severe cardiomyopathy. The patient has chronic hypotension and has not been receiving his Entresto, which I stopped already. I do not feel that he can tolerate it as it causes significant problems with his dialysis regimen and he becomes very hypotensive during dialysis.
--- NOTE | 2018-06-06 14:37 | IPN ---
DATE: 06/05/2018 Mr. Clark is seen this morning on his bedside. He is feeling much better and denies any complaints at present. His diarrhea has improved following fecal transplant. He was dialyzed yesterday and 2.5 liters fluid was removed, which he tolerated very well. The patient denies any dyspnea or chest pain but does have mild edema on his left leg. He has no nausea, vomiting at present. PHYSICAL EXAMINATION: Temperature 97.3 degrees Fahrenheit, heart rate 70 per minute and respiratory rate 18 per minute. Blood pressure 104/54 mmHg and oxygen saturation 98% on room air. His head is atraumatic. Neck is supple and jugular venous distention (JVD) is mildly elevated. There is no oral thrush or ulcers. His right eye is blind previously. His heart sounds are regular and lungs sound clear to auscultation. Abdomen is soft and nontender and bowel sounds are normal. Extremities have no cyanosis or clubbing. A PermaCath on right upper chest is without any signs of infection. Neurologically, he is awake, alert and oriented times three. Today's labs show WBC count 3.9, hemoglobin 8.9 and hematocrit 28.6. Platelets 156. Sodium 135, potassium 4.0, CO2 30, BUN 11 and creatinine 3.24. PROBLEMS: 1. End-stage renal disease. The patient was dialyzed yesterday and his next dialysis will be done as an outpatient on WednesdayJune 07. The patient will follow his usual renal diet at home and fluid restriction of 1500 mL per day. 2. Chronic systolic congestive heart failure. So far he is reasonably well-compensated and denies any shortness of breath. He understands to follow a fluid restriction of 1500 mL per day. We will try to remove fluid as aggressively as he could tolerate as an outpatient and maintain his volume status. His Entresto has been stopped in view of recurrent hypotension during dialysis. 3. Anemia. His anemia did get worse during this hospitalization due to multiple complications. We will resume anemia management as an outpatient with intravenous iron and Mircera. At present, there is no emergent need for a transfusion. 4. Nutrition. His nutrition also suffered due to prolonged episode of diarrhea with C diff colitis. He is eating much better now and he is being advised to resume regular renal diet. DISPOSITION From renal standpoint, the patient can be discharged to home today and he will follow up at outpatient dialysis clinic.
== END 2018-06-05 14:09 | disposition home health service (06) | DRG 371 ==
LOC: EDBD 16:40 → M ED 16:40 → M ED INP 23:53 → M MSPAV 05-12 13:46
PROVIDERS: ADMIT Internal Medicine; ATTEND Hospitalist
PROC: 5A1D70Z Performance of Urinary Filtration, Intermittent, Less than 6 Hours Per Day (ICD-10-PCS; principal; 2018-05-12)
PROC: 30233N1 Transfusion of Nonautologous Red Blood Cells into Peripheral Vein, Percutaneous Approach (ICD-10-PCS; 2018-05-24)
PROC: 3E0H8KZ Introduction of Other Diagnostic Substance into Lower GI, Via Natural or Artificial Opening Endoscopic (ICD-10-PCS; 2018-06-01)
PROC: 0DJD8ZZ Inspection of Lower Intestinal Tract, Via Natural or Artificial Opening Endoscopic (ICD-10-PCS; 2018-06-01)
DX: A04.72 Enterocolitis due to Clostridium difficile, not specified as recurrent (principal); N18.6 End stage renal disease; I50.23 Acute on chronic systolic (congestive) heart failure; I24.8 Other forms of acute ischemic heart disease; I13.2 Hypertensive heart and chronic kidney disease with heart failure and with stage 5 chronic kidney disease, or end stage renal disease; N25.81 Secondary hyperparathyroidism of renal origin; I69.354 Hemiplegia and hemiparesis following cerebral infarction affecting left non-dominant side; I25.5 Ischemic cardiomyopathy; I25.10 Atherosclerotic heart disease of native coronary artery without angina pectoris; J44.9 Chronic obstructive pulmonary disease, unspecified; E78.5 Hyperlipidemia, unspecified; E11.22 Type 2 diabetes mellitus with diabetic chronic kidney disease; E11.40 Type 2 diabetes mellitus with diabetic neuropathy, unspecified; G25.81 Restless legs syndrome; D63.1 Anemia in chronic kidney disease; K21.9 Gastro-esophageal reflux disease without esophagitis; M10.9 Gout, unspecified; E87.6 Hypokalemia; I95.3 Hypotension of hemodialysis; Z90.49 Acquired absence of other specified parts of digestive tract; Z95.5 Presence of coronary angioplasty implant and graft; Z99.2 Dependence on renal dialysis; Z99.81 Dependence on supplemental oxygen; Z98.49 Cataract extraction status, unspecified eye; Z95.0 Presence of cardiac pacemaker; Z91.041 Radiographic dye allergy status; Z91.013 Allergy to seafood; Z88.8 Allergy status to other drugs, medicaments and biological substances; Z79.82 Long term (current) use of aspirin; Z79.52 Long term (current) use of systemic steroids; Z79.4 Long term (current) use of insulin; Z79.899 Other long term (current) drug therapy; N50.811 Right testicular pain; N50.812 Left testicular pain; N50.1 Vascular disorders of male genital organs; D12.4 Benign neoplasm of descending colon; D12.3 Benign neoplasm of transverse colon; R26.89 Other abnormalities of gait and mobility

== ENCOUNTER 2018-06-25 15:24 | Inpatient (IN) | payer OTHER, MEDICARE ==
[~2018-06-25] VITALS: Ht 170.2 cm; Wt 74.0 kg
[~2018-06-25 15:24] MED LIST changes: +ACID1CAP PO; -ASPI1TAB PO; +ASPI81TA26 PO; +DIFI200T PO; +METO-1 OR; -TOPR25TA OR; +VITA100T89 PO; -VITA100T92 PO; +VITA500T17 PO; -VITA500T53 PO
[2018-06-25] MEDS ORDERED: ACETAMINOPHEN 325 MG TAB PO ONE (15:45)
[2018-06-25 16:01] LABS: BASO % 0.5 % (0.0-1.0); HEMATOCRIT 37.2 % (42.0-52.0); HEMOGLOBIN 11.7 g/dl (13.5-17.5); LYMPH # 0.5 10^3/uL (1.5-4.5); LYMPH % 11.5 % (24.0-44.0); MEAN CORPUSCULAR HEMOGLOBIN 31.2 pg (27.0-33.0); MEAN CORPUSCULAR HGB CONC 31.5 g/dl (32.0-36.5); MEAN CORPUSCULAR VOLUME 99.2 fl (80.0-96.0); MONO # 0.8 10^3/uL (0.0-0.8); MONO % 19.7 % (0.0-5.0); NEUTROPHILS # 2.7 10^3/uL (1.8-7.7); PLATELET COUNT, AUTOMATED 186 10^3/uL (150-450); RED BLOOD COUNT 3.75 10^6/uL (4.30-6.10); VENOUS BASE EXCESS 2.7 (-2.0-2.0); VENOUS HCO3 27.6 MEQ/L (23.0-27.0); VENOUS O2 SATURATION 78.1 % (60.0-80.0); VENOUS PARTIAL PRESSURE CO2 43.4 mmHg (38.0-50.0); VENOUS PARTIAL PRESSURE O2 43.5 mmHg (30.0-50.0); VENOUS PH 7.421 UNITS (7.330-7.430); VENOUS STANDARD HCO3 26.5 MEQ/L; VENOUS TOTAL CO2 28.9 MEQ/L (24.0-28.0); WHITE BLOOD COUNT 3.9 10^3/uL (4.0-10.0)
[2018-06-25 16:12] LABS: INR 1.08; PROTHROMBIN TIME 14.1 SECONDS (12.1-14.4)
--- NOTE | 2018-06-25 16:12 | REP ---
Clinical: Sepsis/shock . Comparison: 04/25/2018 . Findings: The mediastinum and cardiac silhouette are stable and double-lumen catheter with tip in the right atrium again noted. The lung betancourt demonstrate chronic-appearing changes without acute consolidation, effusion, or pneumothorax. Skeletal structures are intact. Impression: No acute cardiopulmonary process appreciated. Electronically Signed by Alfred Jordan MD 06/25/2018 04:03 P
[2018-06-25] MEDS ORDERED: MIDO5TA PO (16:28)
[2018-06-25] MEDS ORDERED: ACIDTAB7 PO (16:28)
[2018-06-25] MEDS ORDERED: TOUJ1.2I SC (16:28)
[2018-06-25 16:35] LABS: ALBUMIN 3.4 GM/DL (3.2-5.2); ALT/SGPT 19 U/L (12-78); BILIRUBIN,DIRECT 0.2 MG/DL (0.0-0.2); BILIRUBIN,TOTAL 0.5 MG/DL (0.2-1.0); BLOOD UREA NITROGEN 21 MG/DL (7-18); CALCIUM LEVEL 8.7 MG/DL (8.8-10.2); CARBON DIOXIDE LEVEL 27 MEQ/L (21-32); CHLORIDE LEVEL 101 MEQ/L (98-107); CK-MB VALUE MASS < 1.0 NG/ML (<3.6); CPK CREATINE PHOSPHOKINASE 39 U/L (39-308); CREATININE FOR GFR 4.05 MG/DL (0.70-1.30); GLOMERULAR FILTRATION RATE 16.2 (>49); GLUCOSE, FASTING 152 MG/DL (70-100); MB/CK RELATIVE INDEX 2.56 (< OR =4); SODIUM LEVEL 137 MEQ/L (136-145); TROPONIN I 0.11 NG/ML (< 0.10)
[2018-06-25] MEDS ORDERED: MIDODRINE 5 MG TAB PO STA (17:15)
[2018-06-25] MEDS ORDERED: DILUENT IV ONE (17:15)
[2018-06-25] MEDS ORDERED: NS IV ONE (17:15)
[2018-06-25 17:19] LABS: INFLUENZA A AMPLIFICATION POSITIVE (NEGATIVE); INFLUENZA B AMPLIFICATION NEGATIVE (NEGATIVE)
[2018-06-25] MEDS ORDERED: OSELTAMIVIR PHOSPHATE 30MG CAPSULE PO ONE (17:30)
--- NOTE | 2018-06-25 18:12 | ECGEPIP ---
Stationary ECG Study [facility] - ED Test Date: 2018-06-25 Pat Name: NICHOLAS WAKEFIELD Department: Room: - Gender: M Picker/Puller: BUD : 1955 Requested By: Shannon Camarillo Order Number: [id number] Reading MD: Shannon Camarillo Measurements Intervals [place] Rate: 93 P: 37 NV: 152 QRS: -16 QRSD: 97 T: 168 QT: 359 QTc: 447 Interpretive Statements SINUS RHYTHM INFERIOR MYOCARDIAL INFARCTION, PROBABLY OLD MODERATE T-WAVE ABNORMALITY, CONSIDER ISCHEMIA INCREASED RATE 05/21/18 Electronically Signed On 06-25-2018 18:12:28 EDT by Shannon Camarillo
[2018-06-25] MEDS ORDERED: SENNA 8.6 MG TAB (SENOKOT) PO PRN (18:30)
[2018-06-25] MEDS ORDERED: ACETAMINOPHEN 500 MG TAB PO PRN (18:30)
[2018-06-25] MEDS ORDERED: DOCUSATE SODIUM 100 MG CAP PO PRN (18:30)
[2018-06-25] MEDS ORDERED: ONDANSETRON 4 MG TAB (S0181) PO PRN (18:30)
[2018-06-25] MEDS ORDERED: MIRALAX *UNIT DOSE* 17GM PACKET PO PRN (18:30)
[2018-06-25] MEDS ORDERED: NS 500 ML IV ONE (18:30)
[2018-06-25] MEDS ORDERED: BISACODYL 5 MG TAB PO PRN (18:30)
[2018-06-25] MEDS ORDERED: SIMETHICONE 80 MG CHEW TAB PO PRN (18:30)
[2018-06-25] MEDS ORDERED: NITROGLYCERIN 0.4 MG SUBL TABLET SL PRN (18:30)
[2018-06-25] MEDS ORDERED: ACETAMINOPHEN 325 MG TAB PO PRN (18:45)
[2018-06-25] MEDS ORDERED: PILL CRUSHER/CUTTER 1 EACH XX PRN (18:45)
[2018-06-25 20:35] VITALS: BP 122/59
[2018-06-25] MEDS ORDERED: GLUCAGON FOR INJ 1 MG VIAL (J1610) SC PRN (20:45)
[2018-06-25] MEDS ORDERED: DEXTROSE 50% 50 ML SYRINGE IV PRN (20:45)
[2018-06-25] MEDS ORDERED: GLUCOSE 4 GM CHEW TABLET PO PRN (20:45)
[2018-06-25] MEDS: LEVEMIR (INSULIN DETEMIR) 1 UNITS/0.01ML SC SCH (21:00)
[2018-06-25] MEDS: HumaLOG INSULIN (NovoLOG) PER UNIT SC SCH (21:00)
[2018-06-25] MEDS: PRAVASTATIN 20 MG TAB PO SCH (22:03)
[2018-06-25] MEDS: FEBUXOSTAT 40 MG TABLET (ULORIC) PO SCH (22:03)
[2018-06-25] MEDS: CARVedilol 3.125 MG TAB PO SCH (22:04)
[2018-06-25] MEDS: CLOPIDOGREL 75 MG TAB PO SCH (22:04)
[2018-06-25] MEDS: rOPINIRole 1MG TAB PO SCH (22:05)
[2018-06-25] MEDS: PANTOPRAZOLE 40MG TAB (PROTONIX) PO SCH (22:05)
[2018-06-25] MEDS: GABAPENTIN 100 MG CAP PO SCH (22:05)
[2018-06-26 06:00] VITALS: BP 104/56
[2018-06-26] MEDS ORDERED: ACETAMINOPHEN TAB 650MG DOSE (2X325MG) PO PRN (06:00)
[2018-06-26 06:31] LABS: BASO % 0.2 % (0.0-1.0); HEMATOCRIT 33.8 % (42.0-52.0); HEMOGLOBIN 10.3 g/dl (13.5-17.5); LYMPH # 0.6 10^3/uL (1.5-4.5); LYMPH % 12.4 % (24.0-44.0); MEAN CORPUSCULAR HEMOGLOBIN 30.7 pg (27.0-33.0); MEAN CORPUSCULAR HGB CONC 30.5 g/dl (32.0-36.5); MEAN CORPUSCULAR VOLUME 100.6 fl (80.0-96.0); MONO # 0.9 10^3/uL (0.0-0.8); MONO % 17.6 % (0.0-5.0); NEUTROPHILS # 3.5 10^3/uL (1.8-7.7); NEUTROPHILS % 69.4 % (36.0-66.0); PLATELET COUNT, AUTOMATED 163 10^3/uL (150-450); RED BLOOD COUNT 3.36 10^6/uL (4.30-6.10)
[2018-06-26 06:47] LABS: CALCIUM LEVEL 8.5 MG/DL (8.8-10.2); CREATININE FOR GFR 5.71 MG/DL (0.70-1.30); GLOMERULAR FILTRATION RATE 10.9 (>49); POTASSIUM SERUM 4.2 MEQ/L (3.5-5.1)
--- NOTE | 2018-06-26 07:32 | HPE ---
DATE OF ADMISSION: 06/25/2018 62-year-old male with past medical history of end stage renal disease (ESRD) on hemodialysis Wednesday, and Wednesday, last dialysis was today, history of coronary artery disease status post coronary artery bypass grafting (CABG) with multiple stent placements, history of chronic obstructive pulmonary disease (COPD) oxygen dependent on 2 liters nasal cannula, chronic systolic congestive heart failure (CHF), hyperlipidemia, and diabetes, who presents to the emergency room with generalized weakness, objective feeling of fever, aches and chills that happened prior to dialysis today and worsened after dialysis to the point where he could not walk so he came to the ER for evaluation. In the ER, he was found to be flu positive and was given a renal dose of Tamiflu. When trying to be discharged, the patient had a very difficult time mobilizing so he will be admitted for further management. PAST MEDICAL HISTORY: Again, past medical history of: End stage renal disease (ESRD) on hemodialysis Wednesday, and Wednesday, last dialysis was today. History of coronary artery disease status post CABG with multiple stents. History of oxygen dependent COPD requiring 2 liters nasal cannula. Chronic systolic heart failure. Hyperlipidemia. Diabetes. Gout. PAST SURGICAL HISTORY: CABG. Back surgery. Cholecystectomy. Cataract surgery. Left hip surgery. Pacemaker placement. ALLERGIES: He has allergies to: 1. CONTRAST MEDIA. 2. HYDRALAZINE. 3. Shellfish. FAMILY HISTORY: Noncontributory. SOCIAL HISTORY: Patient denies tobacco, alcohol or illicit drugs. HOME MEDICATIONS: - Tylenol as needed - aspirin 81 mg orally daily - Dulcolax as needed - calcitriol 0.25 mcg by mouth three times weekly - Coreg 3.125 mg orally twice daily - cholecalciferol 2000 units orally daily - Plavix 75 mg orally at bedtime - Colace 100 mg orally twice daily as needed - Uloric 80 mg orally at bedtime - folic acid 2400 mcg orally daily - gabapentin 100 mg orally at bedtime - lactobacillus one tablet orally daily - melatonin 5 mg orally at bedtime - midodrine 5 mg orally twice daily - nitroglycerin 0.4 mg sublingual as needed for chest pain - Zofran 4 mg orally every 8 hours as needed - pantoprazole 40 mg orally twice daily - polyethylene glycol 17 grams orally daily as needed - pravastatin 80 mg orally at bedtime - prednisone 2.5 mg orally daily - ropinirole 1 mg orally at bedtime - senna one tablet orally twice daily as needed - simethicone 80 mg orally every 6 hours as needed - thiamine 250 mg orally daily - Katya SoloStar 30 units subcu at bedtime REVIEW OF SYSTEMS: Negative in all 10 major systems except what is mentioned in the history of present illness. VITALS: Blood pressure is 87/50, heart rate is 86 and regular, respiratory rate is 18, temperature 102.6, oxygen saturation is 94%. Head is atraumatic, normocephalic. Neck supple, no jugular venous distention (JVD). Lungs are clear to auscultation. S1 and S2 audible, no murmurs appreciated. Abdomen soft, positive bowel sounds. No pedal edema. Skin is intact. Neurologic exam: Patient awake, alert and oriented times three. LABS: WBC 3.9, hemoglobin 11.7, hematocrit 37.2, platelets 186,000. Sodium 137, potassium 4, chloride 101, CO2 27, BUN 21, creatinine 4.05, glucose is 152, lactic acid is 2.4, alkaline phosphatase 101, troponin 0.11. Blood gas VBG pH 7.421. Flu A is positive. IMPRESSION: 1. Flu A positive. 2. Generalized weakness. PLAN: Patient is to be admitted to the medical/surgical floor. Will continue Tylenol for symptomatic relief and continue all of his preadmission medications. Once he is able to mobilize better, will send him home on his current medications. As far as Tamiflu is concerned, he has completed his full dose. Because of renal disease he only received the one dose that he needs for this virus. Will continue following his care on the medical/surgical floor.
[2018-06-26] MEDS: MIDODRINE 5 MG TAB PO SCH ×2 (07:56→17:22)
[2018-06-26] MEDS: PANTOPRAZOLE 40MG TAB (PROTONIX) PO SCH ×2 (07:56→21:17)
[2018-06-26] MEDS: VITAMIN D 1,000 INTERNATIONAL UNITS TABLET PO SCH (07:56)
[2018-06-26] MEDS: THIAMINE 100 MG TAB PO SCH (07:56)
[2018-06-26] MEDS: predniSONE 2.5 MG TAB PO SCH (07:56)
[2018-06-26] MEDS: HumaLOG INSULIN (NovoLOG) PER UNIT SC SCH ×4 (07:56→21:00)
[2018-06-26] MEDS: ASPIRIN 81 MG ENTERIC TAB PO SCH (07:57)
[2018-06-26] MEDS: CARVedilol 3.125 MG TAB PO SCH ×2 (07:57→21:20)
--- NOTE | 2018-06-26 09:36 | CR ---
DATE OF CONSULTATION: 06/25/2018 REQUESTING PHYSICIAN: Dr. Griffith REASON FOR CONSULTATION: To assist in the management of hypotension and end-stage renal disease. HISTORY OF PRESENT ILLNESS: Mr. Clark is a 62-year-old gentleman with multiple chronic medical problems including coronary artery disease with multiple angioplasties and coronary artery bypass surgery, history of systolic congestive heart failure, end-stage renal disease, recent history of C. difficile colitis status post fecal transplant, and longstanding history of diabetes. The patient was dialyzed today and he felt very weak and almost collapsed. He was brought to the emergency room and found to be hypotensive. He has also tested positive for influenza A and is being admitted. The patient did complete his dialysis treatment today prior to admission. Nephrology consultation was requested and the patient is seen in the emergency room. PAST MEDICAL AND SURGICAL HISTORY: 1. Longstanding history of diabetes. 2. Coronary artery disease with multiple myocardial infarctions, angioplasties and stents. 3. History of end-stage renal disease requiring maintenance hemodialysis. 4. Chronic obstructive pulmonary disease (COPD). 5. History of hyperlipidemia. 6. History of dyslipidemia. 7. History of stroke in the past. 8. 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 9. Anemia. 10. History of C. difficile colitis. Past surgical history is significant for 1. Back surgery several years ago. 2. Cataract surgery. 3. Pacemaker placement. 4. Coronary artery bypass surgery. 5. Multiple angioplasties and a total of 29 stents. 6. Cholecystectomy. 7. Left hip surgery. 8. History of PermaCath placement and removal. 9. History of fecal transplant. ALLERGIES: The patient has allergies to: 1. HYDRALAZINE. 2. shellfish. MEDICATIONS: His home medications include: - midodrine 10 mg t.i.d. - aspirin 81 mg daily - calcitriol 0.25 mcg daily - Carvedilol 3.125 mg b.i.d. - Plavix 75 mg daily - Uloric 80 mg daily - Neurontin 100 mg at bedtime - Protonix 40 mg daily - pravastatin 80 mg daily - prednisone 2.5 mg daily - Requip 1 mg at bedtime - vitamin D 2000 units daily - multivitamin 1 tablet daily PERSONAL AND SOCIAL HISTORY: The patient denies any alcohol, tobacco or drug use. FAMILY HISTORY: Negative for end-stage renal disease. REVIEW OF SYSTEMS: The patient denies any fever or chills. He just felt very weak after dialysis and could not move. Ears, nose and throat are negative for any nosebleed or sore throat. 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 Cardiovascular system is negative for dyspnea, chest pain or leg edema. Respiratory system is negative for hemoptysis or pleuritic type of chest pain. Gastrointestinal (GI) system is negative for nausea, vomiting or diarrhea. Genitourinary () system is negative for dysuria or hematuria. Endocrine system is significant for history of hyperparathyroidism, diabetes and gout. He also has hypercholesterolemia. Psychosocial system negative for depression, anxiety. Neurological system is significant for peripheral neuropathy and prior stroke. Musculoskeletal system is significant for history of rheumatoid arthritis and gout. Skin is negative for rash or ulcers. PHYSICAL EXAMINATION: The patient is seen in the emergency room. His blood pressure is 82/50 mmHg and heart rate 76 per minute. Respiratory rate is 16 per minute and temperature 101.3 degrees Fahrenheit. Oxygen saturation is 96% on room air. Right eye is blind. Head is atraumatic. Neck is supple and there is no JVD or thyroid enlargement. Heart exam reveals regular S1 and S2 without pericardial friction rub. Lungs sound clear to auscultation. Abdomen soft and nontender. Bowel sounds are normal. Extremities have no cyanosis or clubbing. Skin has no rash or ulcers. Neurologically he is awake, at his baseline mentation and without focal deficit. LABORATORY DATA: WBC count 3.9, hemoglobin 11.7 and hematocrit 37.2. Platelets 186. Sodium 137, potassium 4.0, CO2 27, BUN 21 and creatinine 4.0. Lactic acid level is 2.4. Blood gas showed a pH of 7.42, pCO2 43, venous blood gas pO2 43.5 and bicarb 26.6. Chest x-ray done in the emergency room today showed mild cardiomegaly and no acute effusion or infiltrate. Blood cultures are pending. He tested positive for influenza A. PROBLEMS: 1. End-stage renal disease. The patient was dialyzed today and he completed his dialysis treatment this morning. At this point there is no emergent need for dialysis today. 2. Hypotension. Most likely this is related to influenza with high-grade fever of 101 and dialysis this morning. I called the dialysis unit and I was informed that 3.6 liters of fluid was removed with dialysis today. Will give him a total of 1 liter fluid bolus in the emergency room. He has been already given midodrine. 3. Anemia. The patient does have anemia of chronic kidney disease and at present his anemia is stable. He is dehydrated and this might get diluted after giving him IV fluid. I do not feel that there is any need to worry at this point. 4. Congestive heart failure. He does have history of systolic congestive heart failure which has been well compensated with dialysis and at present his volume status is slightly negative due to dialysis this morning and not feeling well. We will give him 1 liter of normal saline and then monitor him closely. Thank you for involving me in the care of Mr. Clark. I will follow him along with you.
--- NOTE | 2018-06-26 12:23 | IPNPDOC ---
Text Note Date of Service The patient was seen on 06/26/18. NOTE Subjective; Patient has been febrile to 102 overnight. Feels very weak and un able to get out of bed. Compains of body aches . No nausea or vomiting or diarrhea. No abdominal pain, Has some cough. Says has been on dialysis for 2 months. Poor appetite. VITALS: As below Head is atraumatic, normocephalic. Neck supple, no jugular venous distention (JVD). Lungs are clear to auscultation. Heart: S1 and S2 audible, no murmurs appreciated. Abdomen soft, positive bowel sounds. No pedal edema. Skin is intact. Neurologic exam: Patient awake, alert and oriented times three. Labs and Radiology: Reviewed. Assessment and Plan: This is a 62-year-old male patient with underlying medical history of end-stage renal disease on dialysis Wednesday, , Wednesday, coronary artery disease with CABG and multiple stents,including ischemic cardiomyopathy. Patient had prior multiple stents, a total of 29 as stated. He has had CABG done twice in the past, in 2004 and in 2014. 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 In the ER, he was found to be flu positive and was given a renal dose of Tamiflu. When trying to be discharged, the patient had a very difficult time mobilizing so he was admitted for Influenza and inability to ambulate in the setting of multiple underlying medical comorbidities. Influenza A Tamiflu and supportive management COPD with chronic hypoxic respiratory failure continue home meds, oxygen supplementation. ESRD maintenance HD to continue as per Nephrology continue calcitriol, vitamins Ischemic Cardiomyopathy with Chronic Systolic CHF Appears euvolic at present. No issues CAD with h/o CABG x 2 and multiple stents continue asa, plavix, statin , coreg Diabetes with diabetic neuropathy continue levemir, lispro , gabapentin Chronic hypotension continue midodrine. GERD continue pantoprazole Gout no issues continue uloric restless legs continue ropinirole DVT prophylaxis has been ordered. VS,Fishbone, I+O VS, Fishbone, I+O Laboratory Tests 06/25/18 15:53 Red Blood Count 3.75 L, Mean Corpuscular Volume 99.2 H, Mean Corpuscular Hemoglobin 31.2, Mean Corpuscular Hemoglobin Concent 31.5 L, Red Cell Distribution Width 15.8 H, Neutrophils (%) (Auto) 68.0 H, Lymphocytes (%) (Auto) 11.5 L, Monocytes (%) (Auto) 19.7 H, Eosinophils (%) (Auto) 0.0, Basophils (%) (Auto) 0.5, Neutrophils # (Auto) 2.7, Lymphocytes # (Auto) 0.5 L, Monocytes # (Auto) 0.8, Eosinophils # (Auto) 0.0, Basophils # (Auto) 0.0 06/26/18 05:58 Red Blood Count 3.36 L, Mean Corpuscular Volume 100.6 H, Mean Corpuscular Hemoglobin 30.7, Mean Corpuscular Hemoglobin Concent 30.5 L, Red Cell Distribution Width 15.6 H, Neutrophils (%) (Auto) 69.4 H, Lymphocytes (%) (Auto) 12.4 L, Monocytes (%) (Auto) 17.6 H, Eosinophils (%) (Auto) 0.0, Basophils (%) (Auto) 0.2, Neutrophils # (Auto) 3.5, Lymphocytes # (Auto) 0.6 L, Monocytes # (Auto) 0.9 H, Eosinophils # (Auto) 0.0, Basophils # (Auto) 0.0, Calcium Level 8.5 L Vital Signs Date Time Temp Pulse Resp B/P (MAP) Pulse Ox O2 Delivery O2 Flow Rate FiO2 06/26/18 08:00 3.0 06/26/18 07:57 89 104/56 06/26/18 06:30 102.3 06/26/18 06:00 26 99 06/25/18 19:45 Room Air I&O- Last 24 Hours up to 6 AM 06/26/18 06:00 Intake Total 1450 ml Output Total 0 ml Balance 1450 ml RASHARD PAYNE MD Jun 26, 2018 12:23
[2018-06-26] MEDS ORDERED: VANCOMYCIN HCL 1,000 MG, VIAL MATE ADAPTER 1 EACH in D5W 250 ML IV ONE (13:00)
[2018-06-26] MEDS ORDERED: NS 500 ML IV ONE (13:15)
[2018-06-26 13:23] VITALS: BP 138/65
--- NOTE | 2018-06-26 13:50 | IPN ---
DATE OF VISIT: 06/26/2018 Mr. Clark is seen this afternoon on his bedside. He is still feeling very weak and tremulous. He has temperature up to 103.1 degrees Fahrenheit this morning. He denies any nausea or vomiting. He has no dyspnea or chest pain. He did test positive for influenza A and blood cultures are still pending. PHYSICAL EXAMINATION: Most recent temperature 102.3 degrees Fahrenheit, heart rate 88 per minute and respiratory rate 26 per minute. Blood pressure 104/56 mmHg and oxygen saturation 99% on 3 liters oxygen. Head is atraumatic. Neck is supple and without JVD or thyroid enlargement. Heart sounds are regular and lungs clear to auscultation. Abdomen soft and nontender. Bowel sounds normal. Extremities without any cyanosis or clubbing. Neurologically he is awake and able to answer questions appropriately. He does not have any focal neurological deficit. Today's labs show WBC count 5.0, hemoglobin 10.3 and hematocrit 33.8. Platelets 163. Sodium 137, potassium 4.2, CO2 25, BUN 33 and creatinine 5.71. Glucose 155 and calcium 8.5. PROBLEMS: 1. Sepsis. The patient tested positive for influenza A however, I am concerned about possibility of bacterial infection as he does have hemodialysis catheter. His blood cultures are still pending. I am going to give him one dose of vancomycin 1 gram intravenously to cover for possibility of gram positive bacteremia. 2. Hypotension and weakness. Most likely related to high-grade fever. The patient was given 1 liter of normal saline yesterday. I am going to give him another fluid bolus of 500 mL today. 3. End-stage renal disease. The patient was dialyzed yesterday prior to admission. There is no emergent need for dialysis today. 4. Anemia. At present his anemia is stable and does not need any urgent intervention. 5. Coronary artery disease and congestive heart failure. The patient is completely asymptomatic from coronary artery standpoint and congestive heart failure standpoint. A fluid bolus is being given due to low blood pressure. I do not feel that he is at any risk for decompensated congestive heart failure.
[2018-06-26 14:00] VITALS: BP 121/63
[2018-06-26] MEDS: ACETAMINOPHEN 500 MG TAB PO SCH ×2 (17:22→21:17)
[2018-06-26] MEDS: GABAPENTIN 100 MG CAP PO SCH (21:16)
[2018-06-26] MEDS: FEBUXOSTAT 40 MG TABLET (ULORIC) PO SCH (21:16)
[2018-06-26] MEDS: PRAVASTATIN 20 MG TAB PO SCH (21:16)
[2018-06-26] MEDS: CLOPIDOGREL 75 MG TAB PO SCH (21:17)
[2018-06-26] MEDS: rOPINIRole 1MG TAB PO SCH (21:17)
[2018-06-26] MEDS: LEVEMIR (INSULIN DETEMIR) 1 UNITS/0.01ML SC SCH (21:20)
[2018-06-26 22:00] VITALS: BP 107/55
[2018-06-27 06:00] VITALS: BP 104/51
[2018-06-27] MEDS: HumaLOG INSULIN (NovoLOG) PER UNIT SC SCH ×4 (07:30→21:00)
[2018-06-27] MEDS: ACETAMINOPHEN 500 MG TAB PO SCH ×3 (08:43→21:48)
[2018-06-27] MEDS: VITAMIN D 1,000 INTERNATIONAL UNITS TABLET PO SCH (08:43)
[2018-06-27] MEDS: ASPIRIN 81 MG ENTERIC TAB PO SCH (08:44)
[2018-06-27] MEDS: predniSONE 2.5 MG TAB PO SCH (08:44)
[2018-06-27] MEDS: PANTOPRAZOLE 40MG TAB (PROTONIX) PO SCH ×2 (08:44→21:48)
[2018-06-27] MEDS: MIDODRINE 5 MG TAB PO SCH ×2 (08:44→17:26)
[2018-06-27] MEDS: CARVedilol 3.125 MG TAB PO SCH ×2 (08:44→21:49)
[2018-06-27] MEDS: THIAMINE 100 MG TAB PO SCH (08:44)
--- NOTE | 2018-06-27 12:19 | IPNPDOC ---
Text Note Date of Service The patient was seen on 06/27/18. NOTE Subjective: patient did not have any fevers overnight but still Feels very weak and difficulty in mobilizing. Complains of body aches . No nausea or vomiting or diarrhea. No abdominal pain, Has some cough. Says has been on dialysis for 2 months. Poor appetite. VITALS: As below Head is atraumatic, normocephalic. Neck supple, no jugular venous distention (JVD). Lungs are clear to auscultation. Heart: S1 and S2 audible, no murmurs appreciated. Abdomen soft, positive bowel sounds. No pedal edema. Skin is intact. Neurologic exam: Patient awake, alert and oriented times three. Labs and Radiology: Reviewed. Assessment and Plan: This is a 62-year-old male patient with underlying medical history of end-stage renal disease on dialysis Wednesday, , Wednesday, coronary artery disease with CABG and multiple stents,including ischemic cardiomyopathy. Patient had prior multiple stents, a total of 29 as stated. He has had CABG done twice in the past, in 2004 and in 2014. 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 In the ER, he was found to be flu positive and was given a renal dose of Tamiflu. When trying to be discharged, the patient had a very difficult time mobilizing so he was admitted for Influenza and inability to ambulate in the setting of multiple underlying medical comorbidities. Influenza A Tamiflu and supportive management continue Tamiflu 30 mg post HD on dialysis days only. COPD with chronic hypoxic respiratory failure continue home meds, oxygen supplementation. ESRD maintenance HD to continue as per Nephrology continue calcitriol, vitamins Ischemic Cardiomyopathy with Chronic Systolic CHF Appears euvolic at present. No issues CAD with h/o CABG x 2 and multiple stents continue asa, plavix, statin , coreg Diabetes with diabetic neuropathy continue levemir, lispro , gabapentin Chronic hypotension continue midodrine. GERD continue pantoprazole Gout no issues continue uloric restless legs continue ropinirole Giat instability and generalized deconditioning PT and OT evaluation. DVT prophylaxis has been ordered. Disposition: Pending clinical improvement. VS,Fishbone, I+O VS, Fishbone, I+O Vital Signs Date Time Temp Pulse Resp B/P (MAP) Pulse Ox O2 Delivery O2 Flow Rate FiO2 06/27/18 09:00 3.0 06/27/18 08:44 71 104/51 06/27/18 06:00 99.6 21 98 06/25/18 19:45 Room Air I&O- Last 24 Hours up to 6 AM 06/27/18 06:00 Intake Total 1170 ml Output Total 0 ml Balance 1170 ml RASHARD PAYNE MD Jun 27, 2018 12:19
[2018-06-27 14:00] VITALS: BP 105/53
[2018-06-27] MEDS: [UNRECOGNIZED DRUG - REMARK] XX SCH (16:00)
[2018-06-27] MEDS: PRAVASTATIN 20 MG TAB PO SCH (21:48)
[2018-06-27] MEDS: rOPINIRole 1MG TAB PO SCH (21:48)
[2018-06-27] MEDS: GABAPENTIN 100 MG CAP PO SCH (21:48)
[2018-06-27] MEDS: FEBUXOSTAT 40 MG TABLET (ULORIC) PO SCH (21:48)
[2018-06-27] MEDS: CLOPIDOGREL 75 MG TAB PO SCH (21:49)
[2018-06-27] MEDS: LEVEMIR (INSULIN DETEMIR) 1 UNITS/0.01ML SC SCH (21:50)
[2018-06-27 22:00] VITALS: BP_SYST 124; BP_SYST 97; BP_DIAS 51; BP_DIAS 58
[2018-06-28 06:00] VITALS: BP 99/51
[2018-06-28] MEDS: VITAMIN D 1,000 INTERNATIONAL UNITS TABLET PO SCH (06:35)
[2018-06-28] MEDS: CARVedilol 3.125 MG TAB PO SCH ×2 (06:36→21:04)
[2018-06-28] MEDS: predniSONE 2.5 MG TAB PO SCH (06:36)
[2018-06-28] MEDS: ACETAMINOPHEN 500 MG TAB PO SCH ×3 (06:36→21:03)
[2018-06-28] MEDS: ASPIRIN 81 MG ENTERIC TAB PO SCH (06:37)
[2018-06-28] MEDS: MIDODRINE 5 MG TAB PO SCH ×2 (06:37→17:21)
[2018-06-28] MEDS: PANTOPRAZOLE 40MG TAB (PROTONIX) PO SCH ×2 (06:37→21:04)
[2018-06-28] MEDS: THIAMINE 100 MG TAB PO SCH (06:37)
[2018-06-28] MEDS: HumaLOG INSULIN (NovoLOG) PER UNIT SC SCH ×4 (07:30→21:00)
--- NOTE | 2018-06-28 09:25 | IPN ---
DATE: 06/27/2018 Mr. Clark is seen this morning on his bedside. He is sitting in the chair and reports feeling somewhat better today. Yesterday he had high-grade fever up to 103 degrees Fahrenheit. Today he is down to 99.6 degrees Fahrenheit. The patient denies any dyspnea, chest pain, nausea or vomiting. PHYSICAL EXAMINATION: Temperature 99.6 degrees Fahrenheit, heart rate 70 per minute and respiratory rate 20 per minute. Blood pressure 104/50 mmHg and oxygen saturation 98%. His head is atraumatic. Right eye is blind. Neck is supple and without JVD or thyroid enlargement. Heart sounds are regular and lungs sound clear to auscultation. Abdomen soft and nontender and bowel sounds are normal. Extremities have no cyanosis or clubbing. He does not have any peripheral edema. Neurologically, he is at his baseline mentation without a focal deficit. Today's labs included only a fingerstick blood sugar. There are no labs done today. His blood cultures have been negative so far. PROBLEMS: 1. Sepsis. The patient did have high-grade fever up to 103 degrees yesterday. He did test positive for influenza A. We also give him vancomycin 1 gram pending his blood cultures which are negative so far. He does have a PermaCath and I was concerned about the possibility of bacteremia. 2. Hypotension. Blood pressure is at about baseline. He has received about 1-1/2 liters of normal saline fluid boluses over last couple of days. At this point we will continue to monitor. 3. End-stage renal disease. The patient was last dialyzed on Wednesday and his next dialysis will be scheduled for tomorrow. Electrolytes are within normal range and volume status is well-compensated. There is no emergent indication for dialysis today. 4. Anemia. His anemia was stable yesterday and no labs are done today. We will check his CBC and renal profile tomorrow morning. 5. Coronary artery disease. The patient has multiple angioplasties and stents and prior to that he also had a coronary artery bypass grafting (CABG). He is currently asymptomatic and remains on his chronic therapy. No changes are being made today.
--- NOTE | 2018-06-28 13:05 | IPNPDOC ---
Date Seen The patient was seen on 06/28/18. Progress Note Subjective: Pt supposed to be dialyzed today. He c/o cough productive of white sputum and generalized weakness. on tamiflu. VITALS: As below Head is atraumatic, normocephalic. Neck supple, no jugular venous distention (JVD). Lungs are clear to auscultation. Heart: S1 and S2 audible, no murmurs appreciated. Abdomen soft, positive bowel sounds. No pedal edema. Skin is intact. Neurologic exam: Patient awake, alert and oriented times three. Labs and Radiology: Reviewed. Assessment and Plan: This is a 62-year-old male patient with underlying medical history of end-stage renal disease on dialysis Wednesday, , Wednesday, coronary artery disease with CABG and multiple stents,including ischemic cardiomyopathy. Patient had prior multiple stents, a total of 29 as stated. He has had CABG done twice in the past, in 2004 and in 2014. 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 In the ER, he was found to be flu positive and was given a renal dose of Tamiflu. When trying to be discharged, the patient had a very difficult time mobilizing so he was admitted for Influenza and inability to ambulate in the setting of multiple underlying medical comorbidities. Influenza A Tamiflu and supportive management continue Tamiflu 30 mg post HD on dialysis days only. COPD with chronic hypoxic respiratory failure continue home meds, oxygen supplementation. ESRD maintenance HD to continue as per Nephrology continue calcitriol, vitamins Ischemic Cardiomyopathy with Chronic Systolic CHF Appears euvolic at present. No issues CAD with h/o CABG x 2 and multiple stents continue asa, plavix, statin , coreg Diabetes with diabetic neuropathy continue levemir, lispro , gabapentin Chronic hypotension continue midodrine. GERD continue pantoprazole Gout no issues continue uloric restless legs continue ropinirole Giat instability and generalized deconditioning PT and OT evaluation. DVT prophylaxis has been ordered. Disposition: dc home wednesday pt is scheduled for dialysis today. VS, I&O, 24H, Fishbone Vital Signs/I&O Vital Signs Date Time Temp Pulse Resp B/P (MAP) Pulse Ox O2 Delivery O2 Flow Rate FiO2 06/28/18 06:00 96.3 66 20 99/51 (67) 96 06/27/18 09:00 3.0 06/25/18 19:45 Room Air I&O- Last 24 Hours up to 6 AM 06/28/18 06:00 Intake Total 1440 ml Output Total 0 ml Balance 1440 ml Laboratory Data 24H LABS Laboratory Tests 2 06/27/18 16:47: Bedside Glucose (Misc Panel) 123H 06/27/18 20:39: Bedside Glucose (Misc Panel) 187H 06/28/18 06:54: Bedside Glucose (Misc Panel) 147H 06/28/18 11:04: Bedside Glucose (Misc Panel) 200H Microbiology Microbiology 06/25/18 Blood Culture - Preliminary, Resulted No Growth after 48 hours. All Specime... 06/25/18 Blood Culture - Preliminary, Resulted No Growth after 48 hours. All Specime... RADHA GOMES MD Jun 28, 2018 12:37
[2018-06-28] MEDS ORDERED: guaiFENesin DM LIQ 10ML UD PO ONE (13:15)
[2018-06-28 13:30] LABS: BASO % 0.6 % (0.0-1.0); HEMATOCRIT 35.1 % (42.0-52.0); HEMOGLOBIN 10.8 g/dl (13.5-17.5); LYMPH # 0.6 10^3/uL (1.5-4.5); LYMPH % 17.9 % (24.0-44.0); MEAN CORPUSCULAR HEMOGLOBIN 30.9 pg (27.0-33.0); MEAN CORPUSCULAR HGB CONC 30.8 g/dl (32.0-36.5); MEAN CORPUSCULAR VOLUME 100.6 fl (80.0-96.0); MONO # 0.4 10^3/uL (0.0-0.8); MONO % 10.1 % (0.0-5.0); NEUTROPHILS # 2.6 10^3/uL (1.8-7.7); NEUTROPHILS % 71.1 % (36.0-66.0); PLATELET COUNT, AUTOMATED 127 10^3/uL (150-450); RED BLOOD COUNT 3.49 10^6/uL (4.30-6.10); WHITE BLOOD COUNT 3.6 10^3/uL (4.0-10.0)
[2018-06-28] MEDS: PREPARATION H OINTMENT (HEMORRHOID) PR PRN (13:58)
[2018-06-28 14:00] VITALS: BP 105/54
[2018-06-28 14:25] LABS: ALBUMIN 2.8 GM/DL (3.2-5.2); CALCIUM LEVEL 8.6 MG/DL (8.8-10.2); CREATININE FOR GFR 10.2 MG/DL (0.70-1.30); GLOMERULAR FILTRATION RATE 5.6 (>49); PHOSPHORUS LEVEL 8.2 MG/DL (2.5-4.9); POTASSIUM SERUM 4.7 MEQ/L (3.5-5.1)
--- NOTE | 2018-06-28 15:38 | MHIPN ---
DATE: 06/28/2018 Mr. Clark is seen this morning on his bedside. He is feeling better and reports that he is now able to get up and walk to the bathroom with the help of walker. He denies any nausea, vomiting, dyspnea, or chest pain. He does have a complaint of painful hemorrhoids without any active bleeding. His fever has resolved. PHYSICAL EXAMINATION: Temperature 96.3 degrees Fahrenheit, heart rate 66 per minute, respiratory rate 20 per minute, blood pressure 99/51 mm of mercury, and oxygen saturation 96% on room air. His head is atraumatic. Neck is supple and jugular venous distention (JVD) only mildly elevated. Nose and throat are unremarkable. Heart exam reveals regular S1 and S2. His lungs are clear to auscultation. Abdomen is soft and nontender, and bowel sounds are normal. Extremities have no cyanosis or clubbing. Neurologically, he is at his baseline mentation without a focal neurological deficit. PROBLEMS: 1. End-stage renal disease. The patient is regularly dialyzed on Wednesday, , and Wednesday schedule. He was last dialyzed on Wednesday prior to admission. We are not going to be able to dialyze him today due to too many emergent needs for dialysis. We are going to hold off on his dialysis until tomorrow. Will check his renal profile today to ensure normal electrolytes. His volume status is well compensated, and there is no emergent need for dialysis today. 2. Fever and sepsis. His blood cultures have remained negative so far. He did test positive for influenza A, and fever has resolved now. He is feeling better. 3. Congestive heart failure. His volume status is very well compensated, and no urgent intervention is indicated. He can wait for dialysis until tomorrow without any problem. 3. Anemia. His anemia was stable and complete blood count (CBC) will be checked again today. 4. Hemorrhoids. The patient reports chronic hemorrhoids. I am going to order Preparation H for him.
[2018-06-28] MEDS: [UNRECOGNIZED DRUG - REMARK] XX SCH (16:00)
[2018-06-28] MEDS: PRAVASTATIN 20 MG TAB PO SCH (21:02)
[2018-06-28] MEDS: FEBUXOSTAT 40 MG TABLET (ULORIC) PO SCH (21:03)
[2018-06-28] MEDS: CLOPIDOGREL 75 MG TAB PO SCH (21:03)
[2018-06-28] MEDS: LEVEMIR (INSULIN DETEMIR) 1 UNITS/0.01ML SC SCH (21:04)
[2018-06-28] MEDS: rOPINIRole 1MG TAB PO SCH (21:04)
[2018-06-28] MEDS: GABAPENTIN 100 MG CAP PO SCH (21:04)
[2018-06-28] MEDS: guaiFENesin DM LIQ 10ML UD PO PRN (21:19)
[2018-06-28 22:00] VITALS: BP 114/58
[2018-06-29 05:09] LABS: CLOSTRIDIUM DIFFICILE PCR NEGATIVE (NEGATIVE)
[2018-06-29] MEDS: CARVedilol 3.125 MG TAB PO SCH ×2 (05:50→20:53)
[2018-06-29 06:00] VITALS: BP 101/56
[2018-06-29 06:07] LABS: BASO % 0.2 % (0.0-1.0); HEMATOCRIT 32.7 % (42.0-52.0); HEMOGLOBIN 10.1 g/dl (13.5-17.5); LYMPH # 0.8 10^3/uL (1.5-4.5); LYMPH % 14.7 % (24.0-44.0); MEAN CORPUSCULAR HEMOGLOBIN 30.8 pg (27.0-33.0); MEAN CORPUSCULAR HGB CONC 30.9 g/dl (32.0-36.5); MEAN CORPUSCULAR VOLUME 99.7 fl (80.0-96.0); MONO # 0.5 10^3/uL (0.0-0.8); MONO % 8.7 % (0.0-5.0); PLATELET COUNT, AUTOMATED 127 10^3/uL (150-450); RED BLOOD COUNT 3.28 10^6/uL (4.30-6.10); WHITE BLOOD COUNT 5.3 10^3/uL (4.0-10.0)
[2018-06-29] MEDS: MIDODRINE 5 MG TAB PO SCH ×2 (06:15→18:05)
[2018-06-29] MEDS: VITAMIN D 1,000 INTERNATIONAL UNITS TABLET PO SCH (06:15)
[2018-06-29] MEDS: predniSONE 2.5 MG TAB PO SCH (06:16)
[2018-06-29] MEDS: ACETAMINOPHEN 500 MG TAB PO SCH ×3 (06:16→20:54)
[2018-06-29] MEDS: THIAMINE 100 MG TAB PO SCH (06:16)
[2018-06-29] MEDS: PANTOPRAZOLE 40MG TAB (PROTONIX) PO SCH ×2 (06:17→20:52)
[2018-06-29] MEDS: ASPIRIN 81 MG ENTERIC TAB PO SCH (06:17)
[2018-06-29] MEDS: guaiFENesin DM LIQ 10ML UD PO PRN ×2 (06:25→21:20)
[2018-06-29 06:31] LABS: CALCIUM LEVEL 8.2 MG/DL (8.8-10.2); CREATININE FOR GFR 11.1 MG/DL (0.70-1.30)
[2018-06-29] MEDS: HumaLOG INSULIN (NovoLOG) PER UNIT SC SCH ×5 (08:10→21:00)
[2018-06-29] MEDS: ANUSOL HC CREAM 30GM TOP SCH ×2 (09:00→20:54)
--- NOTE | 2018-06-29 12:35 | IPN ---
DATE: 06/29/2018 Mr. Clark is seen this morning on his bedside. He has a complaint of worsening pain due to hemorrhoids and loose stools. He denies any nausea, vomiting, dyspnea or chest pain. He could not be dialyzed yesterday and is going to be dialyzed today. PHYSICAL EXAMINATION: Temperature 96.4 degrees Fahrenheit, heart rate 63 per minute and respiratory rate 20 per minute. Blood pressure 101/56 mmHg and oxygen saturation 97% on room air. Head is atraumatic. Neck is supple and without JVD or thyroid enlargement. Heart: Sounds regular and lungs clear to auscultation. Abdomen: Soft and nontender. Bowel sounds normal. Extremities: Without any cyanosis or clubbing. Perma-Cath in right upper chest is intact. Today's labs show WBC count 5.3, hemoglobin 10.1 and hematocrit 32.7. Sodium 138, potassium 5.0, CO2 20, BUN 84 and creatinine 11.1. Calcium level 8.2. Yesterday his phosphorus was also 8.2. PROBLEMS: 1. End-stage renal disease. The patient is going to be dialyzed today and his electrolytes are already within normal range. We will try to remove about 1.5 liters of fluid as tolerated. 2. Fever and flu. His fever has resolved and blood cultures have been negative so far. He was given one dose of vancomycin initially when he had 103 fever. I do not feel that further antibiotic is indicated. His fever has already resolved. 3. Anemia. His anemia is stable and does not need any urgent intervention. 4. Hemorrhoids and loose stools. He has recent history of C diff colitis and underwent a fecal transplant. His hemorrhoids are bothering him quite a bit. I would suggest to get a surgical evaluation. He has already been started on preparation H. 5. Hyperphosphatemia. The patient has been drinking Pepsi and he has not been dialyzed for a few days due to which his phosphorus level is high. I will watch at this point and see how his phosphorus is tomorrow while he is dialyzed today. We will order a renal profile for tomorrow morning.
[2018-06-29] MEDS ORDERED: HEPARIN 1,000 UNITS/ML 10ML VIAL (FOR RADIOLOGY& DIALYSIS ONLY) XX ONE (13:00)
[2018-06-29] MEDS ORDERED: HEPARIN 1,000 UNITS/ML 10ML VIAL (FOR RADIOLOGY& DIALYSIS ONLY) IV ONE (13:00)
[2018-06-29 15:20] VITALS: BP 126/64
[2018-06-29] MEDS: OSELTAMIVIR PHOSPHATE 30MG CAPSULE PO SCH (15:33)
[2018-06-29] MEDS: [UNRECOGNIZED DRUG - REMARK] XX SCH (15:40)
[2018-06-29] MEDS: FEBUXOSTAT 40 MG TABLET (ULORIC) PO SCH (20:52)
[2018-06-29] MEDS: CLOPIDOGREL 75 MG TAB PO SCH (20:52)
[2018-06-29] MEDS: LEVEMIR (INSULIN DETEMIR) 1 UNITS/0.01ML SC SCH (20:52)
[2018-06-29] MEDS: GABAPENTIN 100 MG CAP PO SCH (20:52)
[2018-06-29] MEDS: PRAVASTATIN 20 MG TAB PO SCH (20:54)
[2018-06-29] MEDS: rOPINIRole 1MG TAB PO SCH (20:54)
[2018-06-29 22:00] VITALS: BP 122/60
[2018-06-30 06:00] VITALS: BP 126/59
[2018-06-30 06:21] LABS: BASO % 0.2 % (0.0-1.0); HEMATOCRIT 32.2 % (42.0-52.0); HEMOGLOBIN 9.9 g/dl (13.5-17.5); LYMPH % 19.4 % (24.0-44.0); MEAN CORPUSCULAR HEMOGLOBIN 30.1 pg (27.0-33.0); MEAN CORPUSCULAR HGB CONC 30.7 g/dl (32.0-36.5); MEAN CORPUSCULAR VOLUME 97.9 fl (80.0-96.0); MONO # 0.5 10^3/uL (0.0-0.8); MONO % 10.8 % (0.0-5.0); NEUTROPHILS # 3.5 10^3/uL (1.8-7.7); NEUTROPHILS % 69.2 % (36.0-66.0); PLATELET COUNT, AUTOMATED 143 10^3/uL (150-450); RED BLOOD COUNT 3.29 10^6/uL (4.30-6.10)
[2018-06-30 06:39] LABS: ALBUMIN 2.7 GM/DL (3.2-5.2); CALCIUM LEVEL 8.1 MG/DL (8.8-10.2); CREATININE FOR GFR 6.83 MG/DL (0.70-1.30); GLOMERULAR FILTRATION RATE 8.8 (>49); PHOSPHORUS LEVEL 5.6 MG/DL (2.5-4.9); POTASSIUM SERUM 3.6 MEQ/L (3.5-5.1)
[2018-06-30] MEDS: THIAMINE 100 MG TAB PO SCH (07:57)
[2018-06-30] MEDS: CARVedilol 3.125 MG TAB PO SCH ×2 (07:58→20:57)
[2018-06-30] MEDS: ASPIRIN 81 MG ENTERIC TAB PO SCH (07:58)
[2018-06-30] MEDS: VITAMIN D 1,000 INTERNATIONAL UNITS TABLET PO SCH (07:58)
[2018-06-30] MEDS: predniSONE 2.5 MG TAB PO SCH (07:58)
[2018-06-30] MEDS: PANTOPRAZOLE 40MG TAB (PROTONIX) PO SCH ×2 (07:58→20:21)
[2018-06-30] MEDS: MIDODRINE 5 MG TAB PO SCH ×2 (07:58→17:51)
[2018-06-30] MEDS: ACETAMINOPHEN 500 MG TAB PO SCH ×3 (07:59→20:22)
[2018-06-30] MEDS: HumaLOG INSULIN (NovoLOG) PER UNIT SC SCH ×4 (07:59→20:23)
[2018-06-30] MEDS: ANUSOL HC CREAM 30GM TOP SCH ×2 (08:00→20:27)
--- NOTE | 2018-06-30 11:35 | IPN ---
DATE OF VISIT: 06/30/2018 Mr. Clark is seen this morning on his bedside. He was dialyzed yesterday, which he tolerated very well. His main problem is worsening pain due to hemorrhoids. He has been using various preparations and sitz baths without much benefit. He denies any dyspnea, chest pain, nausea or vomiting. On physical exam, temperature 96.3 degrees Fahrenheit, heart rate 68 per minute and respiratory rate 18 per minute. Blood pressure 126/59 mmHg and oxygen saturation 98% on room air. Head is atraumatic. Neck is supple and without jugular venous distention (JVD) or thyroid enlargement. Heart sounds regular and lungs clear to auscultation. Bowel sounds are normal. Extremities have no cyanosis or clubbing. Skin has no rash or ulcers. Neurologically, he is at his baseline mentation. Today's labs show WBC count 5.0, hemoglobin 9.9 and hematocrit 32.2. Platelets are 143. Sodium 138, potassium 3.6, CO2 27, BUN 42 and creatinine 6.83. Calcium is 8.1 and phosphorus 5.6. PROBLEMS: 1. End-stage renal disease. Patient was dialyzed yesterday and we will schedule his next dialysis for tomorrow. At this point, there is no emergent need for dialysis today. 2. Anemia. His anemia is stable at this time, and we will continue with Aranesp 100 mcg once a week during dialysis. 3. Hyperphosphatemia His phosphorus level improved with dialysis yesterday. He will be dialyzed tomorrow again and phosphorus is likely to return back to normal. He is not on phosphate binders at present. 4. Hemorrhoids. Patient is significant discomfort due to hemorrhoids. I would suggest to get surgical evaluation for possible surgical intervention.
--- NOTE | 2018-06-30 12:02 | IPNPDOC ---
Date Seen The patient was seen on 06/29/18. Progress Note Subjective: c/o hemorrhoidal pain despite anusol cream and sitz bath. no overt bleeding. VITALS: As below Head is atraumatic, normocephalic. Neck supple, no jugular venous distention (JVD). Lungs are clear to auscultation. Heart: S1 and S2 audible, no murmurs appreciated. Abdomen soft, positive bowel sounds. No pedal edema. Skin is intact. Neurologic exam: Patient awake, alert and oriented times three. Labs and Radiology: Reviewed. Assessment and Plan: This is a 62-year-old male patient with underlying medical history of end-stage renal disease on dialysis Wednesday, , Wednesday, coronary artery disease with CABG and multiple stents,including ischemic cardiomyopathy. Patient had prior multiple stents, a total of 29 as stated. He has had CABG done twice in the past, in 2004 and in 2014. 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 In the ER, he was found to be flu positive and was given a renal dose of Tamiflu. When trying to be discharged, the patient had a very difficult time mobilizing so he was admitted for Influenza and inability to ambulate in the setting of multiple underlying medical comorbidities. Influenza A Tamiflu and supportive management continue Tamiflu 30 mg post HD on dialysis days only. COPD with chronic hypoxic respiratory failure continue home meds, oxygen supplementation. ESRD maintenance HD to continue as per Nephrology continue calcitriol, vitamins Ischemic Cardiomyopathy with Chronic Systolic CHF Appears euvolic at present. No issues CAD with h/o CABG x 2 and multiple stents continue asa, plavix, statin , coreg Diabetes with diabetic neuropathy continue levemir, lispro , gabapentin Chronic hypotension continue midodrine. GERD continue pantoprazole Gout no issues continue uloric restless legs continue ropinirole Hemorrhoids sitz bath and anusol cream surgical consult. Giat instability and generalized deconditioning PT and OT evaluation. DVT prophylaxis has been ordered. Disposition: dc home wednesday pt is scheduled for dialysis today. VS, I&O, 24H, Fishbone Vital Signs/I&O Vital Signs Date Time Temp Pulse Resp B/P (MAP) Pulse Ox O2 Delivery O2 Flow Rate FiO2 06/29/18 06:00 96.4 63 20 101/56 (71) 97 06/27/18 09:00 3.0 06/25/18 19:45 Room Air I&O- Last 24 Hours up to 6 AM 06/29/18 06:00 Intake Total 1330 ml Output Total 600 ml Balance 730 ml Laboratory Data 24H LABS Laboratory Tests 2 06/28/18 13:12: Immature Granulocyte % (Auto) 0.3, White Blood Count 3.6L, Red Blood Count 3.49L, Hemoglobin 10.8L, Hematocrit 35.1L, Mean Corpuscular Volume 100.6H, Mean Corpuscular Hemoglobin 30.9, Mean Corpuscular Hemoglobin Concent 30.8L, Red Cell Distribution Width 15.0H, Platelet Count 127L, Neutrophils (%) (Auto) 71.1H, Lymphocytes (%) (Auto) 17.9L, Monocytes (%) (Auto) 10.1H, Eosinophils (%) (Auto) 0.0, Basophils (%) (Auto) 0.6, Neutrophils # (Auto) 2.6, Lymphocytes # (Auto) 0.6L, Monocytes # (Auto) 0.4, Eosinophils # (Auto) 0.0, Basophils # (Auto) 0.0, Nucleated Red Blood Cells % (auto) 0.0, Blood Urea Nitrogen 73#H, Creatinine 10.20#*H, Sodium Level 138, Potassium Level 4.7, Chloride Level 103, Carbon Dioxide Level 20L, Anion Gap 15, Glomerular Filtration Rate 5.6L, Calcium Level 8.6L, Phosphorus Level 8.2H, Albumin 2.8L 06/28/18 16:41: Bedside Glucose (Misc Panel) 148H 06/28/18 20:49: Bedside Glucose (Misc Panel) 198H 06/29/18 04:09: Clostridium difficile [id number] NEGATIVE, Clostridium difficile Toxin (PCR) NEGATIVE 06/29/18 05:41: Immature Granulocyte % (Auto) 0.4, White Blood Count 5.3, Red Blood Count 3.28L, Hemoglobin 10.1L, Hematocrit 32.7L, Mean Corpuscular Volume 99.7H, Mean Corpus cular Hemoglobin 30.8, Mean Corpuscular Hemoglobin Concent 30.9L, Red Cell Distribution Width 14.9H, Platelet Count 127L, Neutrophils (%) (Auto) 76.0H, Lymphocytes (%) (Auto) 14.7L, Monocytes (%) (Auto) 8.7H, Eosinophils (%) (Auto) 0.0, Basophils (%) (Auto) 0.2, Neutrophils # (Auto) 4.0, Lymphocytes # (Auto) 0.8L, Monocytes # (Auto) 0.5, Eosinophils # (Auto) 0.0, Basophils # (Auto) 0.0, Nucleated Red Blood Cells % (auto) 0.0, Anion Gap 13, Glomerular Filtration Rate 5.0L, Blood Urea Nitrogen 84H, Creatinine 11.10*H, Sodium Level 138, Potassium Level 5.0, Chloride Level 105, Carbon Dioxide Level 20L, Calcium Level 8.2L CBC/BMP Laboratory Tests 06/28/18 13:12 Red Blood Count 3.49 L, Mean Corpuscular Volume 100.6 H, Mean Corpuscular Hemoglobin 30.9, Mean Corpuscular Hemoglobin Concent 30.8 L, Red Cell Distribution Width 15.0 H, Neutrophils (%) (Auto) 71.1 H, Lymphocytes (%) (Auto) 17.9 L, Monocytes (%) (Auto) 10.1 H, Eosinophils (%) (Auto) 0.0, Basophils (%) (Auto) 0.6, Neutrophils # (Auto) 2.6, Lymphocytes # (Auto) 0.6 L, Monocytes # (Auto) 0.4, Eosinophils # (Auto) 0.0, Basophils # (Auto) 0.0, Anion Gap 15 06/29/18 05:41 Red Blood Count 3.28 L, Mean Corpuscular Volume 99.7 H, Mean Corpuscular Hemoglobin 30.8, Mean Corpuscular Hemoglobin Concent 30.9 L, Red Cell Distribution Width 14.9 H, Neutrophils (%) (Auto) 76.0 H, Lymphocytes (%) (Auto) 14.7 L, Monocytes (%) (Auto) 8.7 H, Eosinophils (%) (Auto) 0.0, Basophils (%) (Auto) 0.2, Neutrophils # (Auto) 4.0, Lymphocytes # (Auto) 0.8 L, Monocytes # (Auto) 0.5, Eosinophils # (Auto) 0.0, Basophils # (Auto) 0.0, Calcium Level 8.2 L Microbiology Microbiology 06/25/18 Blood Culture - Preliminary, Resulted No Growth after 72 hours. All specime... 06/25/18 Blood Culture - Preliminary, Resulted No Growth after 72 hours. All specime... RADHA GOMES MD Jun 29, 2018 11:08
[2018-06-30 14:00] VITALS: BP 107/56
[2018-06-30] MEDS ORDERED: PREPARATION H OINTMENT (HEMORRHOID) PR PRN (14:15)
[2018-06-30] MEDS: MIRALAX *UNIT DOSE* 17GM PACKET PO SCH ×2 (14:20→20:26)
[2018-06-30] MEDS: DOCUSATE SODIUM 100 MG CAP PO SCH ×2 (14:21→20:22)
[2018-06-30] MEDS ORDERED: PREPARATION H OINTMENT (HEMORRHOID) PR ONE (16:00)
[2018-06-30] MEDS: [UNRECOGNIZED DRUG - REMARK] XX SCH (16:00)
[2018-06-30] MEDS: GABAPENTIN 100 MG CAP PO SCH (20:21)
[2018-06-30] MEDS: rOPINIRole 1MG TAB PO SCH (20:21)
[2018-06-30] MEDS: guaiFENesin DM LIQ 10ML UD PO PRN (20:21)
[2018-06-30] MEDS: CLOPIDOGREL 75 MG TAB PO SCH (20:22)
[2018-06-30] MEDS: FEBUXOSTAT 40 MG TABLET (ULORIC) PO SCH (20:23)
[2018-06-30] MEDS: PRAVASTATIN 20 MG TAB PO SCH (20:23)
[2018-06-30] MEDS: PREPARATION H OINTMENT (HEMORRHOID) PR PRN (20:27)
[2018-06-30] MEDS: LEVEMIR (INSULIN DETEMIR) 1 UNITS/0.01ML SC SCH (20:32)
[2018-06-30] MEDS: PREPARATION H SUPP (HEMORRHOID) PR SCH (20:58)
[2018-06-30 22:00] VITALS: BP 127/65
[2018-07-01 06:00] VITALS: BP 103/53
[2018-07-01] MEDS: ACETAMINOPHEN 500 MG TAB PO SCH ×3 (06:08→20:39)
[2018-07-01] MEDS: PANTOPRAZOLE 40MG TAB (PROTONIX) PO SCH ×2 (06:08→20:38)
[2018-07-01] MEDS: DOCUSATE SODIUM 100 MG CAP PO SCH ×2 (06:08→20:35)
[2018-07-01] MEDS: PREPARATION H SUPP (HEMORRHOID) PR SCH (06:09)
[2018-07-01] MEDS: THIAMINE 100 MG TAB PO SCH (06:10)
[2018-07-01] MEDS: VITAMIN D 1,000 INTERNATIONAL UNITS TABLET PO SCH (06:10)
[2018-07-01] MEDS: predniSONE 2.5 MG TAB PO SCH (06:10)
[2018-07-01] MEDS: ASPIRIN 81 MG ENTERIC TAB PO SCH (06:10)
[2018-07-01] MEDS: MIRALAX *UNIT DOSE* 17GM PACKET PO SCH ×2 (06:11→20:37)
[2018-07-01] MEDS: MIDODRINE 5 MG TAB PO SCH ×2 (06:11→17:07)
[2018-07-01] MEDS: CARVedilol 3.125 MG TAB PO SCH ×2 (06:11→20:36)
[2018-07-01] MEDS: ANUSOL HC CREAM 30GM TOP SCH ×2 (06:12→21:00)
[2018-07-01] MEDS: PREPARATION H OINTMENT (HEMORRHOID) PR PRN (06:12)
[2018-07-01 06:19] LABS: BASO % 0.3 % (0.0-1.0); EOS % 0.3 % (0.0-3.0); HEMATOCRIT 33.4 % (42.0-52.0); HEMOGLOBIN 10.2 g/dl (13.5-17.5); LYMPH % 26.7 % (24.0-44.0); MEAN CORPUSCULAR HEMOGLOBIN 30.1 pg (27.0-33.0); MEAN CORPUSCULAR HGB CONC 30.5 g/dl (32.0-36.5); MEAN CORPUSCULAR VOLUME 98.5 fl (80.0-96.0); MONO # 0.4 10^3/uL (0.0-0.8); MONO % 12.1 % (0.0-5.0); NEUTROPHILS # 2.2 10^3/uL (1.8-7.7); NEUTROPHILS % 60.3 % (36.0-66.0); PLATELET COUNT, AUTOMATED 125 10^3/uL (150-450); RED BLOOD COUNT 3.39 10^6/uL (4.30-6.10); WHITE BLOOD COUNT 3.6 10^3/uL (4.0-10.0)
[2018-07-01 06:44] LABS: CREATININE FOR GFR 8.07 MG/DL (0.70-1.30); GLOMERULAR FILTRATION RATE 7.3 (>49)
[2018-07-01] MEDS: HumaLOG INSULIN (NovoLOG) PER UNIT SC SCH ×4 (08:05→20:45)
[2018-07-01] MEDS ORDERED: COLA100C5 PO (08:37)
[2018-07-01] MEDS ORDERED: PEG1POW PO (08:37)
[2018-07-01] MEDS ORDERED: SENO8.6T10 PO (08:39)
[2018-07-01] MEDS ORDERED: PREP1CRE TOP (08:39)
[2018-07-01] MEDS ORDERED: SITZMIS XX (08:41)
--- NOTE | 2018-07-01 11:50 | IPNPDOC ---
Date Seen The patient was seen on 06/30/18. Progress Note Subjective: c/o hemorrhoidal pain despite anusol cream and sitz bath. no overt bleeding. Surgery, Dr. Hester consulted to assist in hemorrhoid mgt. VITALS: As below Head is atraumatic, normocephalic. Neck supple, no jugular venous distention (JVD). Lungs are clear to auscultation. Heart: S1 and S2 audible, no murmurs appreciated. Abdomen soft, positive bowel sounds. No pedal edema. Skin is intact. Neurologic exam: Patient awake, alert and oriented times three. : nonbleeding internal hemorrhoids, nonthrombosed. stool yellow without blood. -RN present during rectal exam. Labs and Radiology: Reviewed. Assessment and Plan: This is a 62-year-old male patient with underlying medical history of end-stage renal disease on dialysis Wednesday, , Wednesday, coronary artery disease with CABG and multiple stents,including ischemic cardiomyopathy. Patient had prior multiple stents, a total of 29 as stated. He has had CABG done twice in the past, in 2004 and in 2014. 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 In the ER, he was found to be flu positive and was given a renal dose of Tamiflu. When trying to be discharged, the patient had a very difficult time mobilizing so he was admitted for Influenza and inability to ambulate in the setting of multiple underlying medical comorbidities. Influenza A Tamiflu and supportive management continue Tamiflu 30 mg post HD on dialysis days only. Internal Hemorrhoids despite sitz bath tid, preparation cream, suppositories and bowel regimen, pt still c/o severe pain. no blood on rectal exam. surgery Dr. Hester has been consulted and awaiting new recommendations. COPD with chronic hypoxic respiratory failure continue home meds, oxygen supplementation. ESRD maintenance HD to continue as per Nephrology. dc plans Wednesday. continue calcitriol, vitamins Ischemic Cardiomyopathy with Chronic Systolic CHF Appears euvolic at present. No issues CAD with h/o CABG x 2 and multiple stents continue asa, plavix, statin , coreg Diabetes with diabetic neuropathy continue levemir, lispro , gabapentin Chronic hypotension continue midodrine. GERD continue pantoprazole Gout no issues continue uloric restless legs continue ropinirole Hemorrhoids sitz bath and anusol cream surgical consult. Giat instability and generalized deconditioning PT and OT evaluation. DVT prophylaxis has been ordered. Disposition: dc plans Wednesday after Wednesday dialysis. VS, I&O, 24H, Fishbone Vital Signs/I&O Vital Signs Date Time Temp Pulse Resp B/P (MAP) Pulse Ox O2 Delivery O2 Flow Rate FiO2 06/30/18 07:58 67 126/59 06/30/18 06:00 96.3 18 98 06/27/18 09:00 3.0 06/25/18 19:45 Room Air I&O- Last 24 Hours up to 6 AM 06/30/18 06:00 Intake Total 1030 ml Output Total 0 ml Balance 1030 ml Laboratory Data 24H LABS Laboratory Tests 2 06/29/18 15:25: Bedside Glucose (Misc Panel) 82 06/29/18 17:02: Bedside Glucose (Misc Panel) 137H 06/30/18 05:59: Immature Granulocyte % (Auto) 0.4, White Blood Count 5.0, Red Blood Count 3.29L, Hemoglobin 9.9L, Hematocrit 32.2L, Mean Corpuscular Volume 97.9H, Mean Corpuscular Hemoglobin 30.1, Mean Corpuscular Hemoglobin Concent 30.7L, Red Cell Distribution Width 14.6H, Platelet Count 143L, Neutrophils (%) (Auto) 69.2H, Lymphocytes (%) (Auto) 19.4L, Monocytes (%) (Auto) 10.8H, Eosinophils (%) (Auto) 0.0, Basophils (%) (Auto) 0.2, Neutrophils # (Auto) 3.5, Lymphocytes # (Auto) 1.0L, Monocytes # (Auto) 0.5, Eosinophils # (Auto) 0.0, Basophils # (Auto) 0.0, Nucleated Red Blood Cells % (auto) 0.0, Blood Urea Nitrogen 42H, Creatinine 6.83H, Sodium Level 138, Potassium Level 3.6#, Chloride Level 100, Carbon Dioxide Level 27, Anion Gap 11, Glomerular Filtration Rate 8.8L, Calcium Level 8.1L, Phosphorus Level 5.6#H, Albumin 2.7L CBC/BMP Laboratory Tests 06/30/18 05:59 Red Blood Count 3.29 L, Mean Corpuscular Volume 97.9 H, Mean Corpuscular Hemoglobin 30.1, Mean Corpuscular Hemoglobin Concent 30.7 L, Red Cell Distr ibution Width 14.6 H, Neutrophils (%) (Auto) 69.2 H, Lymphocytes (%) (Auto) 19.4 L, Monocytes (%) (Auto) 10.8 H, Eosinophils (%) (Auto) 0.0, Basophils (%) (Auto) 0.2, Neutrophils # (Auto) 3.5, Lymphocytes # (Auto) 1.0 L, Monocytes # (Auto) 0.5, Eosinophils # (Auto) 0.0, Basophils # (Auto) 0.0, Anion Gap 11 Microbiology Microbiology 06/25/18 Blood Culture - Preliminary, Resulted No Growth after 72 hours. All specime... 06/25/18 Blood Culture - Preliminary, Resulted No Growth after 72 hours. All specime... RADHA GOMES MD Jun 30, 2018 12:02
--- NOTE | 2018-07-01 11:54 | IPNPDOC ---
Date Seen The patient was seen on 07/01/18. Progress Note Subjective: Patient was seen and examined at hemodialysis. Chart has been reviewed. He still c/o hemorrhoidal pain despite preparation H cream, suppositories, sitz bath. He admits to only having done one sitz bath, despite tid order. pt denies any bright red blood per rectum,nausea, vomiting, abd pain, but admits to decreased appetite since he was diagnosed with influenza. He denies any fevers or chills,b ut still has a white productive sputum which keeps him up at night, but better with robitussin PRN. Pt is planned for dialysis Wednesday, and potential dc Wednesday. General Surgery, Dr. Blanco weathers, was consulted yesterday for assistance with patient's hemorrhoidal pain. VITALS: As below Head is atraumatic, normocephalic. Neck supple, no jugular venous distention (JVD). Lungs are clear to auscultation. Heart: S1 and S2 audible, no murmurs appreciated. Abdomen soft, positive bowel sounds. No pedal edema. Skin is intact. Neurologic exam: Patient awake, alert and oriented times three. : nonbleeding internal hemorrhoids, nonthrombosed. stool yellow without blood. -RN present during rectal exam. Labs and Radiology: Reviewed. Assessment and Plan: This is a 62-year-old male patient with underlying medical history of end-stage renal disease on dialysis Wednesday, , Wednesday, coronary artery disease with CABG and multiple stents,including ischemic cardiomyopathy. Patient had prior multiple stents, a total of 29 as stated. He has had CABG done twice in the past, in 2004 and in 2014. 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 In the ER, he was found to be flu positive and was given a renal dose of Tamiflu. When trying to be discharged, the patient had a very difficult time mobilizing so he was admitted for Influenza and inability to ambulate in the setting of multiple underlying medical comorbidities. Influenza A Tamiflu and supportive management continue Tamiflu 30 mg post HD on dialysis days only. Internal Hemorrhoids despite sitz bath tid, preparation cream, suppositories and bowel regimen, pt still c/o severe pain. no blood on rectal exam. surgery Dr. Hester has been consulted and awaiting new recommendations. COPD with chronic hypoxic respiratory failure continue home meds, oxygen supplementation. ESRD maintenance HD to continue as per Nephrology. dc plans Wednesday. continue calcitriol, vitamins Ischemic Cardiomyopathy with Chronic Systolic CHF Appears euvolic at present. No issues CAD with h/o CABG x 2 and multiple stents continue asa, plavix, statin , coreg Diabetes with diabetic neuropathy continue levemir, lispro , gabapentin Chronic hypotension continue midodrine. GERD continue pantoprazole Gout no issues continue uloric restless legs continue ropinirole Hemorrhoids sitz bath and anusol cream surgical consult. Giat instability and generalized deconditioning PT and OT evaluation. DVT prophylaxis has been ordered. Disposition: dc plans Wednesday after Wednesday dialysis. VS, I&O, 24H, Fishbone Vital Signs/I&O Vital Signs Date Time Temp Pulse Resp B/P (MAP) Pulse Ox O2 Delivery O2 Flow Rate FiO2 07/01/18 06:11 64 118/68 07/01/18 06:00 97.0 18 99 06/27/18 09:00 3.0 06/25/18 19:45 Room Air I&O- Last 24 Hours up to 6 AM 07/01/18 06:00 Intake Total 605 ml Output Total 1 ml Balance 604 ml Laboratory Data 24H LABS Laboratory Tests 2 06/30/18 11:59: Bedside Glucose (Misc Panel) 104 06/30/18 17:08: Bedside Glucose (Misc Panel) 172H 06/30/18 20:06: Bedside Glucose (Misc Panel) 188H 07/01/18 05:38: Immature Granulocyte % (Auto) 0.3, White Blood Count 3.6L, Red Blood Count 3.39L, Hemoglobin 10.2L, Hematocrit 33.4L, Mean Corpuscular Volume 98.5H, Mean Corpuscular Hemoglobin 30.1, Mean Corpuscular Hemoglobin Concent 30.5L, Red Cell Distribution Width 14.6H, Platelet Count 125L, Neutrophils (%) (Auto) 60.3, Lymphocytes (%) (Auto) 26.7, Monocytes (%) (Auto) 12.1H, Eosinophils (%) (Auto) 0.3, Basophils (%) (Auto) 0.3, Neutrophils # (Auto) 2.2, Lymphocytes # (Auto) 1.0L, Monocytes # (Auto) 0.4, Eosinophils # (Auto) 0.0, Basophils # (Auto) 0.0, Nucleated Red Blood Cells % (auto) 0.0, Anion Gap 12, Glomerular Filtration Rate 7.3L, Blood Urea Nitrogen 58H, Creatinine 8.07*H, Sodium Level 138, Potassium Level 4.0, Chloride Level 100, Carbon Dioxide Level 26, Calcium Level 8.0L CBC/BMP Laboratory Tests 07/01/18 05:38 Red Blood Count 3.39 L, Mean Corpuscular Volume 98.5 H, Mean Corpuscular Hemoglobin 30.1, Mean Corpuscular Hemoglobin Concent 30.5 L, Red Cell Distribution Width 14.6 H, Neutrophils (%) (Auto) 60.3, Lymphocytes (%) (Auto) 26.7, Monocytes (%) (Auto) 12.1 H, Eosinophils (%) (Auto) 0.3, Basophils (%) (Auto) 0.3, Neutrophils # (Auto) 2.2, Lymphocytes # (Auto) 1.0 L, Monocytes # (Auto) 0.4, Eosinophils # (Auto) 0.0, Basophils # (Auto) 0.0, Calcium Level 8.0 L Microbiology Microbiology 06/25/18 Blood Culture - Final, Complete NO GROWTH AFTER 5 DAYS 06/25/18 Blood Culture - Final, Complete NO GROWTH AFTER 5 DAYS RADHA GOMES MD Jul 01, 2018 11:54
[2018-07-01 14:00] VITALS: BP 110/74
[2018-07-01] MEDS: [UNRECOGNIZED DRUG - REMARK] XX SCH (16:00)
[2018-07-01] MEDS: guaiFENesin DM LIQ 10ML UD PO PRN ×2 (16:08→21:02)
[2018-07-01] MEDS: OSELTAMIVIR PHOSPHATE 30MG CAPSULE PO SCH (16:11)
--- NOTE | 2018-07-01 17:03 | IPN ---
DATE: 07/01/2018 Mr. Clark was seen this morning during hemodialysis. He is feeling better. However, continues to have pain due to hemorrhoids. He denies any nausea, dyspnea, chest pain, fever or chills. PHYSICAL EXAMINATION: Temperature 97 degrees Fahrenheit, heart rate 60 per minute and respiratory rate 18 per minute. Blood pressure 103/53 mmHg and oxygen saturation 99% on room air. Head is atraumatic. His right eye is blind. Neck is supple and without JVD or thyroid enlargement. Heart: Sounds are regular and lungs clear to auscultation. Abdomen: Soft and nontender and bowel sounds are normal. Extremities have no cyanosis or clubbing. Neurologically he is awake, alert and oriented times three. Today's labs show WBC count 3.6, hemoglobin 10.2 and hematocrit 33.4. Platelets 125. Sodium 138, potassium 4.0, BUN 58 and creatinine 8.07. PROBLEMS: 1. End-stage renal disease. The patient is being dialyzed and he is tolerating his dialysis treatment very well. His regular dialysis days are Wednesday, and Wednesday. If the patient gets discharged tomorrow. He can go to outpatient dialysis clinic for his regular treatment. 2. Fever and flu. His symptoms have improved and is doing very well. Blood cultures have been negative. He did test positive for influenza A. 3. Painful hemorrhoids. The patient continues to use hemorrhoidal appointment. A surgical consult is pending. 4. Congestive heart failure. Volume status is very well compensated at present and we are removing was 1.5 liters of fluid today with dialysis. DISPOSITION: From renal standpoint, the patient can be discharged to home and follow up in outpatient dialysis clinic. If he gets discharged tomorrow, then he should go to outpatient dialysis for his dialysis late in the afternoon.
[2018-07-01] MEDS ORDERED: DIBUCAINE 1% OINTMENT 30GM TOP PRN (19:30)
[2018-07-01] MEDS: GABAPENTIN 100 MG CAP PO SCH (20:37)
[2018-07-01] MEDS: CLOPIDOGREL 75 MG TAB PO SCH (20:37)
[2018-07-01] MEDS: rOPINIRole 1MG TAB PO SCH (20:38)
[2018-07-01] MEDS: PRAVASTATIN 20 MG TAB PO SCH (20:38)
[2018-07-01] MEDS: FEBUXOSTAT 40 MG TABLET (ULORIC) PO SCH (20:39)
[2018-07-01] MEDS: LEVEMIR (INSULIN DETEMIR) 1 UNITS/0.01ML SC SCH (21:00)
[2018-07-01 22:00] VITALS: BP 122/60
[2018-07-02] MEDS: guaiFENesin DM LIQ 10ML UD PO PRN (02:48)
[2018-07-02] MEDS ORDERED: IPRATROPIUM 0.5MG/ALBUTEROL 2.5MG INH SOL UD 3ML (DUONEB)(J7620) NEB ONE (03:15)
[2018-07-02 06:00] VITALS: BP 120/58
[2018-07-02] MEDS ORDERED: DIBU10OI TOP (08:38)
[2018-07-02] MEDS: THIAMINE 100 MG TAB PO SCH (09:15)
[2018-07-02] MEDS: MIDODRINE 5 MG TAB PO SCH (09:16)
[2018-07-02] MEDS: DOCUSATE SODIUM 100 MG CAP PO SCH (09:16)
[2018-07-02] MEDS: predniSONE 2.5 MG TAB PO SCH (09:16)
[2018-07-02] MEDS: HumaLOG INSULIN (NovoLOG) PER UNIT SC SCH (09:16)
[2018-07-02] MEDS: PANTOPRAZOLE 40MG TAB (PROTONIX) PO SCH (09:16)
[2018-07-02] MEDS: ACETAMINOPHEN 500 MG TAB PO SCH (09:17)
[2018-07-02] MEDS: ASPIRIN 81 MG ENTERIC TAB PO SCH (09:17)
[2018-07-02] MEDS: MIRALAX *UNIT DOSE* 17GM PACKET PO SCH (09:17)
[2018-07-02] MEDS: VITAMIN D 1,000 INTERNATIONAL UNITS TABLET PO SCH (09:18)
[2018-07-02] MEDS: ANUSOL HC CREAM 30GM TOP SCH (09:18)
[2018-07-02 09:19] VITALS: BP 122/62
[2018-07-02] MEDS: CARVedilol 3.125 MG TAB PO SCH (09:19)
--- NOTE | 2018-07-02 10:40 | CR ---
DATE OF CONSULTATION: 07/01/2018 REASON FOR CONSULTATION: Hemorrhoids with discomfort. HISTORY OF THE PRESENT ILLNESS: The patient is a pleasant 62-year-old man who was hospitalized on 06/25/2018 with a diagnosis of influenza with some generalized weakness in the face of multiple medical issues, including coronary artery disease and end-stage renal disease on dialysis. During his hospital stay, he has complained to his primary providers of some problems with hemorrhoids. He has discomfort, and I have been asked to see the patient. The patient describes that with bowel movement, he notes the protrusion of several small bulges at the anal verge which are quite sensitive. These will remain out after a bowel movement until he is able to sit on the bed for a short time, and they will then reduce. He has not noticed any bleeding. He has never had issues with hemorrhoids protruding until very recently. He has no history of any thrombosed hemorrhoid and has had no treatment for these in the past. He does report a long history of slow intestinal transit. He reports that he has been evaluated in [place] by gastroenterology for this. He was placed on some MiraLAX and stool softeners and was provided a prescription for Linzess. He reports that without treatment, he can go up to several weeks without a bowel movement. ALLERGIES: The patient reports allergies to CONTRAST MEDIA, HYDRALAZINE, and SHELLFISH. MEDICATIONS: Are as listed in the hospital record. HIS MEDICAL HISTORY: Is significant for end-stage renal disease, and he is on hemodialysis Wednesday, , and Wednesday. He has the history of coronary artery disease, status post prior coronary artery bypass grafting and multiple stents. He has chronic obstructive pulmonary disease (COPD) and has required oxygen. He has some chronic heart failure, hyperlipidemia, diabetes, and gout. SURGICAL HISTORY: Is significant for coronary artery bypass grafting. He has had back surgery, cholecystectomy, cataract surgery, left hip surgery, and a pacemaker placement. FAMILY HISTORY: Is noncontributory. SOCIAL HISTORY: He denies any current tobacco or alcohol use. REVIEW OF SYSTEMS: Is significant only as related in the history of the present illness. PHYSICAL EXAMINATION: Reveals a pleasant man, sitting up in the chair at bedside when I entered. He is alert and oriented. He was able to get out of the chair by himself and came to the bed so that I could perform an examination. His physical examination is otherwise limited to the perineum. The examination reveals intact perianal skin. There are no evident hemorrhoids externally. There is no evidence of any blood. There is no sign of infection or fistula. Digital rectal examination is not performed at this time. LABORATORY STUDIES: Are as noted in the medical record. IMPRESSION: The patient described grade 3 hemorrhoids that protrude with a bowel movement and then reduce when some pressure is applied by sitting. It may be that these represent grade 2 hemorrhoids, but the distinction is fairly arbitrary. He reports pain with the hemorrhoid protrusion and for a short while afterwards. He has not noticed any bleeding. He has not required any treatment previously. RECOMMENDATIONS: At this point, there is no need for any immediate surgical intervention. I counseled him that treatment would be directed primarily at relief of discomfort. Certainly, his history of chronic constipation and his need for management of that can make his likelihood for problems with his hemorrhoids greater. The patient has apparently tried some suppositories, and I would recommend stopping these and have taken the liberty of discontinuing the remaining ordered suppositories. It has been my experience that these are just as likely to cause increased discomfort as they are to bring relief. I recommended that we might try topical cream with some local anesthetic properties. I also suggested that he may wish to try reducing the hemorrhoids manually immediately after they protrude, which may help to limit his period of discomfort. He should continue with his medications for his chronic constipation to try to avoid the need for straining, which will aggravate hemorrhoids further. If he has continuing issues with these, he could followup for consideration of further treatment on an outpatient basis. JERMAIN
--- NOTE | 2018-07-02 13:42 | DS.PDOC ---
Discharge Summary General Date of Admission Jun 27, 2018 at 12:18 Date of Discharge July 02, 2018 Discharge Summary PROCEDURES PERFORMED DURING STAY: [None]. ADMITTING DIAGNOSES: 1. . DISCHARGE DIAGNOSES: 1. . COMPLICATIONS/CHIEF COMPLAINT: Influenza A. HISTORY OF PRESENT ILLNESS: . HOSPITAL COURSE: . DISCHARGE MEDICATIONS: Please see below. ALLERGIES: Please see below. PHYSICAL EXAMINATION ON DISCHARGE: VITAL SIGNS: Please see below. GENERAL: HEENT: NECK: CARDIOVASCULAR EXAMINATION: RESPIRATORY EXAMINATION: ABDOMINAL EXAMINATION: EXTREMITIES: SKIN: NEUROLOGICAL EXAMINATION: PSYCHIATRIC EXAMINATION: LABORATORY DATA: Please see below. IMAGING: PROGNOSIS: ACTIVITY: [As tolerated]. DIET: DISCHARGE PLAN: DISPOSITION: Home, Self-Care. DISCHARGE INSTRUCTIONS: 1. . ITEMS TO FOLLOWUP ON ON OUTPATIENT: 1. . DISCHARGE CONDITION: [Stable]. TIME SPENT ON DISCHARGE: Greater than minutes. Vital Signs/I&Os DISCHARGE DIAGNOSES: IFNLUENZA A INTERNAL HEMORRHOIDAL PAIN ESRD ON HD CA/CABG STENTS ISCHEMIC CMP COPD EXACERBATION, MILD DIABETIC NEUROPATHY DM HTN GOUT PACER DISCHARGE MEDS: PLS SEE BELOW DISCHARGE INSTRUCTIONS; DELANEY HESTER RE: INTERNAL HEMMORHOIDS DR. GRIGGS FOR DIALYSIS NEEDS HISTORY OF PRESENTING ILLNESS: This is a 62-year-old male patient with underlying medical history of end-stage renal disease on dialysis Wednesday, , Wednesday, coronary artery disease with CABG and multiple stents,including ischemic cardiomyopathy. Patient had prior multiple stents, a total of 29 as sta stefano. He has had CABG done twice in the past, in 2005 and in 2014. chronic obstructive pulmonary disease (COPD) on 2 liters oxygen, steroid dependent, systolic CHF with ejection fraction of 35%, dyslipidemia, diabetes, status post pacemaker, also has history of gout, recurrent Clostridium (C) difficile colitis s/p stool transplant on 06/10/18, dyslipidemia, diabetic neuropathy, g astroesophageal reflux disease (GERD), restless legs, anemia of chronic disease, gait instability Was recently discharged from the hospital on after a prolonged stay of more than a month for sepsis due to C diff colitis who presents to the emergency room with generalized weakness, subjective feeling of fever, aches and chills that happened prior to dialysis today and worsened after dialysis to the point where he could not walk so he came to the ER for evaluation. In the ER, he was found to be flu positive and was given a renal dose of Tamiflu. When trying to be discharged, the patient had a very difficult time mobilizing so he was admitted for Influenza and inability to ambulate in the setting of multiple underlying medical comorbidities. HOSPITAL COURSE Influenza A Tamiflu and supportive management continue Tamiflu 30 mg post HD on dialysis days only. Internal Hemorrhoids He still c/o hemorrhoidal pain despite preparation H cream, suppositories, sitz bath. He admits to only having done one sitz bath, despite tid order. pt denies any bright red blood per rectum,nausea, vomiting, abd pain.General Surgery, Dr. Hester, was consulted and recommended bupivicaine and outpt fu. COPD with chronic hypoxic respiratory failure continue home meds, oxygen supplementation. ESRD maintenance HD to continue as per Nephrology. dc plans Wednesday. continue calcitriol, vitamins Ischemic Cardiomyopathy with Chronic Systolic CHF Appears euvolic at present. No issues CAD with h/o CABG x 2 and multiple stents continue asa, plavix, statin , coreg Diabetes with diabetic neuropathy continue levemir, lispro , gabapentin Chronic hypotension continue midodrine. GERD continue pantoprazole Gout no issues continue uloric restless legs continue ropinirole Hemorrhoids sitz bath and anusol cream surgical consult. Giat instability and generalized deconditioning PT and OT evaluation. DVT prophylaxis has been ordered. DISCHARGE PHYSICAL EXAMINATION: VITALS: As below GENERAL: NO distress. Head is atraumatic, normocephalic. Neck supple, no jugular venous distention (JVD). Lungs are clear to auscultation. Heart: S1 and S2 audible, no murmurs appreciated. Abdomen soft, positive bowel sounds. No pedal edema. Skin is intact. Neurologic exam: Patient awake, alert and oriented times three. : nonbleeding internal hemorrhoids, nonthrombosed. stool yellow without blood. -RN present during rectal exam. Labs, microbiology, and Radiology: Reviewed. TIME SPENT ON DISCHARGE: 30 MIN Microbiology Microbiology 06/25/18 Blood Culture - Final, Complete NO GROWTH AFTER 5 DAYS 06/25/18 Blood Culture - Final, Complete NO GROWTH AFTER 5 DAYS Discharge Medications Scheduled (Folic Acid) 800 Mcg Cap, 2,400 MCG PO DAILY, (Reported) (Touchandan Solostar) 300 Unit/Ml Inj, 30 UNIT SC QHS, (Reported) Aspirin (Aspirin 81) 81 Mg Tab, 81 MG PO DAILY, (Reported) Calcitriol (Calcitriol) 0.25 Mcg Cap, 0.25 MCG PO 3XW, (Reported) WEDNESDAY, WEDNESDAY, WEDNESDAY. Carvedilol (Carvedilol) 3.125 Mg Tab, 3.125 MG PO BID, (Reported) Cholecalciferol (Vitamin D3) 1,000 Unit Tab, 2,000 UNIT PO DAILY, (Reported) Clopidogrel Bisulfate (Clopidogrel) 75 Mg Tab, 75 MG PO QHS, (Reported) Dibucaine (Dibucaine) 1 % Oin, 1 % TOP TID Docusate Sod/Senna (Senokot S 8.6-50 mg) 1 Tab Tab, 2 TAB PO BID Docusate Sodium (Colace) 100 Mg Cap, 200 MG PO BID Febuxostat (Uloric) 80 Mg Tab, 80 MG PO QHS, (Reported) Gabapentin (Gabapentin) 100 Mg Cap, 100 MG PO QHS, (Reported) Hydrocortisone Base (Preparation H Hydrocortis) 1 % Cre, 1 APLCT TOP BID Insulin Human Regular (Humulin R) 1 Units/0.01 Ml Soln, 1 DOSE SC ACHS, (Reported) PER SLIDING SCALE Lactobacillus (Acidophilus) 1 Tab Tab, 1 TAB PO DAILY, (Reported) Midodrine HCl (Midodrine HCl) 5 Mg Tab, 5 MG PO BID, (Reported) Pantoprazole Sodium (Pantoprazole Sodium) 40 Mg Tab, 40 MG PO BID, (Reported) Polyethylene Glycol (Peg 3350) 1 Pkt Pow, 1 PKT PO BID Pravastatin Sodium (Pravastatin Sodium) 80 Mg Tab, 80 MG PO QHS, (Reported) Prednisone (Prednisone) 2.5 Mg Tab, 2.5 MG PO DAILY, (Reported) Ropinirole Hydrochloride (Ropinirole HCl) 1 Mg Tab, 1 MG PO QHS, (Reported) Thiamine HCl (B-1) 250 Mg Tab, 250 MG PO DAILY, (Reported) Scheduled PRN Acetaminophen (Acetaminophen) 500 Mg Tab, 1,000 MG PO BID PRN for PAIN, (Reported) Bisacodyl (Dulcolax) 5 Mg Tab, 5 MG PO DAILY PRN for CONSTIPATION, (Reported) Linaclotide Base (Linzess) 290 Mcg Cap, 290 MCG PO DAILY PRN for CONSTIPATION, ( Reported) Melatonin (Melatonin) 5 Mg Tab, 5 MG PO QHS PRN for SLE, (Reported) Nitroglycerin (Nitrostat) 0.4 Mg Subl, 0.4 MG SL NITRO PRN for CHEST PAIN, (Reported) Ondansetron HCl (Zofran) 4 Mg Tab, 4 MG PO Q8H PRN for NAUSEA, (Reported) Simethicone (Simethicone) 80 Mg Chew, 80 MG PO Q6H PRN for GAS PAIN, (Reported) Allergies Coded Allergies: shellfish derived (Verified Allergy, Unknown, 06/25/18) Contrast Media (Unverified Adverse Reaction, Mild, KIDNEY PROBLEMS, 04/24/18) hydralazine (Unverified Adverse Reaction, Mild, DIZZINESS, 06/25/18) RADHA GOMES MD Jul 02, 2018 13:42
== END 2018-07-02 12:01 | disposition home or self-care (01) | DRG 193 ==
LOC: M ED 15:24 → M ED INP 18:30 → M MSPAV 20:25 → OBSVTOIN 06-27 12:18
PROVIDERS: ADMIT Internal Medicine; ATTEND General Practice
PROC: 5A1D70Z Performance of Urinary Filtration, Intermittent, Less than 6 Hours Per Day (ICD-10-PCS; principal; 2018-06-29)
DX: J10.1 Influenza due to other identified influenza virus with other respiratory manifestations (principal); N18.6 End stage renal disease; I50.22 Chronic systolic (congestive) heart failure; J96.11 Chronic respiratory failure with hypoxia; I13.2 Hypertensive heart and chronic kidney disease with heart failure and with stage 5 chronic kidney disease, or end stage renal disease; I25.10 Atherosclerotic heart disease of native coronary artery without angina pectoris; Z95.1 Presence of aortocoronary bypass graft; Z95.2 Presence of prosthetic heart valve; I25.5 Ischemic cardiomyopathy; J44.9 Chronic obstructive pulmonary disease, unspecified; Z95.0 Presence of cardiac pacemaker; Z79.52 Long term (current) use of systemic steroids; E11.40 Type 2 diabetes mellitus with diabetic neuropathy, unspecified; M10.9 Gout, unspecified; K21.9 Gastro-esophageal reflux disease without esophagitis; G25.81 Restless legs syndrome; D63.1 Anemia in chronic kidney disease; R26.89 Other abnormalities of gait and mobility; K64.8 Other hemorrhoids; I95.9 Hypotension, unspecified; Z79.82 Long term (current) use of aspirin; Z79.899 Other long term (current) drug therapy; Z91.041 Radiographic dye allergy status; Z88.8 Allergy status to other drugs, medicaments and biological substances; Z91.013 Allergy to seafood; Z99.81 Dependence on supplemental oxygen; E78.5 Hyperlipidemia, unspecified; I25.2 Old myocardial infarction; H54.8 Legal blindness, as defined in USA; E83.39 Other disorders of phosphorus metabolism

== ENCOUNTER → 2018-08-17 | Outpatient (CLI) | payer OTHER, MEDICARE ==
[~2018-08-17] MED LIST changes: +ACIDTAB7 PO; +DIBU10OI TOP; +FEBU40TA PO; +MELA10TA2 PO; +PEG1POW PO; +PREP1CRE TOP; +PREPCRE TOP; +RA M500C PO; +RANO5TAB PO; +SENO8.6T10 PO; +SITZMIS XX; +SM A10CA PO
--- NOTE | 2018-08-17 17:08 | REP ---
BILATERAL UPPER EXTREMITY DUPLEX DOPPLER ARTERIAL AND VENOUS ULTRASOUND FOR AV FISTULA MAPPING: Real-time ultrasound evaluation and duplex Doppler interrogation of the bilateral upper extremity arterial and venous systems is performed. No deep vein thrombosis is seen on the right. On the left pace maker lead is seen in the subclavian vein with some mild chronic calcific and fibrin deposition on the surface. Right basilic vein measures 3 mm at the upper humerus, 2 mm at the lower humerus, 1 mm throughout the forearm and median cubital vein measures 1 mm. Right cephalic vein measures 2 mm at the upper humerus, 3 mm at the lower humerus and upper forearm, 2 mm in the lower forearm and wrist. The right upper extremity arterial structures demonstrates normal flow velocities with biphasic and triphasic wave forms. Right axillary artery measures 5 mm, brachial artery 4 mm, proximal radial artery 3 mm and distal 2 mm, and proximal ulnar artery 4 mm and distal 2 mm. Left basilic vein measures 2 mm at the level of the humerus and upper forearm, 1 mm in the lower forearm. Median cubital vein measures 2 mm. Left cephalic vein measures 2 mm throughout the level of the humerus and into the upper forearm, 1 mm in the lower forearm and wrist, left upper extremity demonstrates duplicated brachial artery with 1 branch forming the radial artery and 1 branch forming the ulnar artery. Left upper extremity arterial structures demonstrate normal flow velocities with diffusely biphasic wave forms. Left axillary artery measures 6 mm, two brachial arteries are seen measuring 4 mm and 2 mm. Left radial artery measures 3 mm proximally and 2 mm distally. Left ulnar artery measures 4 mm proximally and 2 mm distally. There is significant atherosclerotic plaquing throughout both upper extremity arterial systems. Electronically Signed by Hemal Gilbert MD 08/18/2018 12:35 P
== END ==
LOC: M RAD 10:30
PROVIDERS: ATTEND Internal Medicine Nephrology
DX: N18.6 End stage renal disease (principal)

== ENCOUNTER 2018-08-20 11:14 | Inpatient (IN) | payer OTHER, MEDICARE ==
[~2018-08-20] VITALS: Ht 172.7 cm; Wt 72.5 kg
[~2018-08-20 11:14] MED LIST changes: -FEBU40TA PO; -MELA10TA2 PO; -PREPCRE TOP; -RA M500C PO; -RANO5TAB PO; -SM A10CA PO
--- NOTE | 2018-08-20 11:41 | REP ---
Clinical: Possible acute cerebrovascular infarct. Comparison: None . Findings: Age-related atrophy and microvascular ischemic changes are appreciated. The ventricles and sulci are symmetric. Left-sided encephalomalacia consistent with prior left posterior cerebral infarction. Gilbert-white differentiation is otherwise maintained. There is no evidence for acute intracranial hemorrhage, mass/mass effect, pathology or infarction. No extra-axial fluid collection. Calvarium is intact. Paranasal sinuses and mastoid air cells are clear. Impression: Age related atrophy and microvascular ischemic changes. Old left posterior cerebral infarction with encephalomalacia. No acute intracranial hemorrhage, infarction, or mass/mass effect. Electronically Signed by Alfred Jordan MD 08/20/2018 11:33 A
[2018-08-20 11:57] LABS: BASO % 0.3 % (0.0-1.0); HEMATOCRIT 37.2 % (42.0-52.0); LYMPH # 0.7 10^3/uL (1.5-4.5); LYMPH % 10.5 % (24.0-44.0); MEAN CORPUSCULAR HEMOGLOBIN 30.8 pg (27.0-33.0); MEAN CORPUSCULAR HGB CONC 32.3 g/dl (32.0-36.5); MEAN CORPUSCULAR VOLUME 95.6 fl (80.0-96.0); MONO # 0.6 10^3/uL (0.0-0.8); MONO % 7.9 % (0.0-5.0); NEUTROPHILS # 5.7 10^3/uL (1.8-7.7); NEUTROPHILS % 80.9 % (36.0-66.0); PLATELET COUNT, AUTOMATED 205 10^3/uL (150-450); RED BLOOD COUNT 3.89 10^6/uL (4.30-6.10); WHITE BLOOD COUNT 7.1 10^3/uL (4.0-10.0)
[2018-08-20 12:14] LABS: INR 1.02; PROTHROMBIN TIME 13.5 SECONDS (12.1-14.4)
[2018-08-20 12:15] LABS: PARTIAL THROMBOPLASTIN TIME 52.6 SECONDS (25.4-37.6)
--- NOTE | 2018-08-20 12:22 | REP ---
Clinical: Altered mental status. Acute cerebrovascular accident . Comparison: 06/25/2018 . Findings: Double-lumen dialysis catheter with tip in the right atrium. Evidence of prior sternotomy and pacemaker. The mediastinum and cardiac silhouette are stable and within normal limits for portable technique. The lung betancourt demonstrate chronic stable changes without acute consolidation, effusion, or pneumothorax. Skeletal structures are intact. Impression: No acute cardiopulmonary process appreciated. Electronically Signed by Alfred Jordan MD 08/20/2018 12:14 P
[2018-08-20 12:29] LABS: ALBUMIN 3.6 GM/DL (3.2-5.2); CALCIUM LEVEL 9.4 MG/DL (8.8-10.2); CREATININE FOR GFR 3.06 MG/DL (0.70-1.30); GLOMERULAR FILTRATION RATE 22.2 (>49); MB/CK RELATIVE INDEX 5.63 (< OR =4); PHOSPHORUS LEVEL 2.5 MG/DL (2.5-4.9); POTASSIUM SERUM 3.3 MEQ/L (3.5-5.1); TROPONIN I 0.1 NG/ML (< 0.10)
[2018-08-20] MEDS ORDERED: DIBU10OI TOP (12:41)
[2018-08-20] MEDS ORDERED: RANO5TAB PO (12:52)
[2018-08-20] MEDS ORDERED: PREPCRE TOP (12:52)
[2018-08-20] MEDS ORDERED: FEBU40TA PO (12:52)
[2018-08-20] MEDS ORDERED: MELA10TA2 PO (12:52)
[2018-08-20] MEDS ORDERED: COLA100C5 PO (12:52)
[2018-08-20] MEDS ORDERED: SM A10CA PO (12:52)
[2018-08-20] MEDS ORDERED: RA M500C PO (12:53)
[2018-08-20] MEDS ORDERED: BISACODYL 5 MG TAB PO PRN (14:00)
[2018-08-20] MEDS ORDERED: NITROGLYCERIN 0.4 MG SUBL TABLET SL PRN (14:00)
[2018-08-20] MEDS ORDERED: SIMETHICONE 80 MG CHEW TAB PO PRN (14:00)
[2018-08-20] MEDS ORDERED: ACETAMINOPHEN TAB 650MG DOSE (2X325MG) PO PRN (14:00)
--- NOTE | 2018-08-20 14:43 | HPEPDOC ---
[facility] Medical History & Physical Date of Admission August 20, 2018 Date of Service: August 20, 2018 Attending Physician: PIPPA DYSON MD History and Physical CHIEF COMPLAINT: Right Face Numbness HISTORY OF PRESENT ILLNESS: Patient is a 63 year old male with a past medical history significant for a left posterior cerebral infarction, diabetes, ESRD on HD, h/o CAD with 29 stents placed, COPD on 2L NC, Systolic heart failure, and gout who presented to the [facility] ER with complaint of right face numbness. Patient states that he was receiving dialysis this morning as normally scheduled. As dialysis came to an end he had noticed that his lips and right side of his cheek became numb and tingled at times. He stated that he made the dialysis staff aware and they suggested he go to the ER. The patient states that he did not develop any slurring of his speech or facial droop. He denied any increase weakness from his baseline. He states that he sometimes gets the sensation in his tongue as well. He did state that he feels like he has been more clumsy with his hand over the past few days. He notes that when he goes to pick some thing up he has difficulty grasping. He also stated that this morning he had some difficulty tying his shoe as his hand kept slipping. He does admit to history of stroke in the past and states that he does have multiple deficits from that including vision issue and difficulty swallowing. He states that these do not appear to be any different from his baseline PAST MEDICAL HISTORY: 1. End stage renal disease (ESRD) on hemodialysis Wednesday, and Wednesday, last dialysis was today. 2. H/O Left Posterior Cerebral Stroke 3. History of coronary artery disease status post CABG with multiple stents. 4. History of oxygen dependent COPD requiring 2 liters nasal cannula. 5. Chronic systolic heart failure. 6. Hyperlipidemia. 7 Diabetes. 8 Gout. 9. Gastroparesis PAST SURGICAL HISTORY: 1. CABG. 2. Back surgery. 3. Cholecystectomy. 4 Cataract surgery. 5 Left hip surgery. 6 Pacemaker placement. 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 He lives at home with his and ambulates mostly with a cane. He denies any history of tobacco use. He denies IV drug use. He denies alcohol use FAMILY HISTORY: Noncontributory ALLERGIES: Please see below. REVIEW OF SYSTEMS: CONSTITUTIONAL: Denies fevers, chills, nightsweats, unintentional weightloss or weightgain HEENT: Denies cough. Admits to chronic dysphagia although admitted that it seems worse recently. Denies headache CARDIOVASCULAR: Admits to occasional chest pain. Denies palpitations or feelings of the heart racing RESPIRATORY: Denies shortness of breath, wheezing, or cough. GASTROINTESTINAL: Denies abdominal pain. Denies nausea, vomiting, diarrhea. Admits to constipation GENITOURINARY: Denies dysuria or increased frequency SKIN: Denies rashes or lesions MUSCULOSKELETAL: Admits to weakness on his left side which is chronic. NEUROLOGICAL: Admits to decreased sensation of the right cheek and perioral area. Admits to dysphagia which seems to have worsened since his last stroke PSYCHIATRIC: Denies depression or anxiety ENDOCRINE: Denies heat intolerance or cold intolerance HEMATOLOGIC/LYMPHATIC: Denies easy bruising or bleeding. Denies h/o DVT or PE HOME MEDICATIONS: Please see below. PHYSICAL EXAMINATION: VITAL SIGNS: Temperature 97.2, pulse 94, respiratory rate 17, blood pressure 127/59, pulse oximetry 98% on room air. GENERAL APPEARANCE: Awake, alert, and oriented. He appears in no acute distress. He is lying comfortably on stretcher HEENT: Atraumatic normocephalic. Eyes are nonicteric. Trachea is midline. Pupils are equal and reactive to light, ptosis of the right eye. No facial asymmetry CARDIOVASCULAR: Normal rate and rhythm. 1/6 systolic murmur auscultated over the left sternal border. No clicks or rubs LUNGS: Clear vesicular breath sounds bilaterally with good respiratory effort. No wheezes, rhonchi or rales. ABDOMEN: Soft, nondistended, nontender to palpation in all 4 quadrants. No rebound tenderness or guarding. MUSCULOSKELETAL: 5/5 muscle strength in bilateral upper extremities. 5/5 in right lower extremity. 3/5 in left lower extremity. EXTREMITIES: Nol edema. Full and equal pulses in bilateral upper and lower extremities NEUROLOGICAL: CN2-12 grossly intact. Finger to nose test normal. Speech normal. Pain on light touch of right upper lip and cheek PSYCHIATRIC: Mood and affect appear appropriate LABORATORY DATA: See below. IMAGING: Clinical: Possible acute cerebrovascular infarct. Comparison: None . Findings: Age-related atrophy and microvascular ischemic changes are appreciated. The ventricles and sulci are symmetric. Left-sided encephalomalacia consistent with prior left posterior cerebral infarction. Gilbert-white differentiation is otherwise maintained. There is no evidence for acute intracranial hemorrhage, mass/mass effect, pathology or infarction. No extra-axial fluid collection. Calvarium is intact. Paranasal sinuses and mastoid air cells are clear. Impression: Age related atrophy and microvascular ischemic changes. Old left posterior cerebral infarction with encephalomalacia. No acute intracranial hemorrhage, infarction, or mass/mass effect. Electronically Signed by Alfred Jordan MD 08/20/2018 11:33 A Clinical: Altered mental status. Acute cerebrovascular accident . Comparison: 06/25/2018 . Findings: Double-lumen dialysis catheter with tip in the right atrium. Evidence of prior sternotomy and pacemaker. The mediastinum and cardiac silhouette are stable and within normal limits for portable technique. The lung betancourt demonstrate chronic stable changes without acute consolidation, effusion, or pneumothorax. Skeletal structures are intact. Impression: No acute cardiopulmonary process appreciated. Electronically Signed by Alfred Jordan MD 08/20/2018 12:14 P MICROBIOLOGY: Please see below. ASSESSMENT: Patient is a 63 year old male with a past medical history significant for left posterior cerebral infarction, CAD s/p CABG and stent placement x29, diabetes, and ESRD on HD who presented to the [facility] ER for decreased sensation/tingling on the right cheek and lip. Patient denied any changes in speech, gait, or motor function. He states that his strength is at his baseline. He complained of clumsiness with his hands over the past week as well increased difficulty swallowing which has been gradually getting worse since his previous stroke. . PLAN: 1. CVA -Patient presented with right cheek numbness and perioral tingling. His CT scan was negative for acute pathology. He is currently on Aspirin, Plavix, and Simvastatin as an outpatient. He is unable to receive an MRI as he has a pace maker. He has noted that approximately a week ago he had a cold sore around the same spot that is currently numb. He may be experience some post herpetic neuralgia. -Will continue patients Plavix, aspirin, and simvastatin. -Repeat CT scan in AM -Echocardiogram -Telemetry -Neuro checks Q4H -NPO due to noted increased dysphagia. Speech and swallow eval placed -PT and OT -Neurology was contacted in the ER and will see patient. 2. H/O CAD s/p CABG and stent placement x29 -Patient has a significant cardiovascular history -Continue Aspirin, Plavix and Pravastatin -Nitrostat PRN -Ranexa 3. Diabetes -Patient is currently NPO -Q6H fingersticks with sliding scale 4. ESRD on HD -Patient receives HD on Wednesday, , and Wednesday. He had received dialysis this morning -Nephrology consultation to follow 5. DVT prophylaxis -Heparin SQ Vital Signs Vital Signs Date Time Temp Pulse Resp B/P (MAP) Pulse Ox O2 Delivery O2 Flow Rate FiO2 08/20/18 13:15 106/61 (76) 08/20/18 13:14 81 95 08/20/18 11:15 97.2 17 Room Air Laboratory Data Labs 24H Laboratory Tests 2 08/20/18 11:37: Immature Granulocyte % (Auto) 0.4, White Blood Count 7.1, Red Blood Count 3.89L, Hemoglobin 12.0L, Hematocrit 37.2L, Mean Corpuscular Volume 95.6, Mean Corpuscular Hemoglobin 30.8, Mean Corpuscular Hemoglobin Concent 32.3, Red Cell Distribution Width 14.1, Platelet Count 205, Neutrophils (%) (Auto) 80.9H, Lymphocytes (%) (Auto) 10.5L, Monocytes (%) (Auto) 7.9H, Eosinophils (%) (Auto) 0.0, Basophils (%) (Auto) 0.3, Neutrophils # (Auto) 5.7, Lymphocytes # (Auto) 0.7L, Monocytes # (Auto) 0.6, Eosinophils # (Auto) 0.0, Basophils # (Auto) 0.0, Nucleated Red Blood Cells % (auto) 0.0, Prothrombin Time 13.5, Prothromb Time International Ratio 1.02, Activated Partial Thromboplast Time 52.6H, Blood Urea Nitrogen 18, Creatinine 3.06H, Sodium Level 138, Potassium Level 3.3L, Chloride Level 98, Carbon Dioxide Level 30, Anion Gap 10, Glomerular Filtration Rate 22.2L, Calcium Level 9.4, Phosphorus Level 2.5, Total Creatine Kinase 71, Creatine Kinase MB 4.0H, Creatine Kinase MB Relative Index 5.63H, Troponin I 0.10, Albumin 3.6 08/20/18 12:00: Bedside Glucose (Misc Panel) 175H CBC/BMP Laboratory Tests 08/20/18 11:37 Red Blood Count 3.89 L, Mean Corpuscular Volume 95.6, Mean Corpuscular Hemoglobin 30.8, Mean Corpuscular Hemoglobin Concent 32.3, Red Cell Distribution Width 14.1, Neutrophils (%) (Auto) 80.9 H, Lymphocytes (%) (Auto) 10.5 L, Monocytes (%) (Auto) 7.9 H, Eosinophils (%) (Auto) 0.0, Basophils (%) (Auto) 0.3, Neutrophils # (Auto) 5.7, Lymphocytes # (Auto) 0.7 L, Monocytes # (Auto) 0.6, Eosinophils # (Auto) 0.0, Basophils # (Auto) 0.0, Anion Gap 10 Home Medications Scheduled Aspirin (Aspirin EC) 81 Mg Tab, 81 MG PO DAILY Calcitriol (Calcitriol) 0.25 Mcg Cap, 0.25 MCG PO 3XW WEDNESDAY, WEDNESDAY, WEDNESDAY Carvedilol (Carvedilol) 3.125 Mg Tab, 3.125 MG PO BID Cholecalciferol (Vitamin D3) (Vitamin D3) 1,000 Unit Tab, 2,000 UNIT PO DAILY Clopidogrel Bisulfate (Clopidogrel) 75 Mg Tab, 75 MG PO QHS Febuxostat (Uloric) 40 Mg Tablet, 40 MG PO QHS Folic Acid (Folic Acid) 800 Mcg Cap, 2,400 MCG PO DAILY Gabapentin (Gabapentin) 100 Mg Cap, 100 MG PO QHS Insulin Glargine,Hum.rec.anlog (Katya Wilde) 300 Unit/Ml Inj, 30 UNIT SC QHS Insulin Human Regular (Humulin R) 1 Units/0.01 Ml Soln, 1 DOSE SC ACHS PER SLIDING SCALE Lactobacillus Acidophilus (Acidophilus) 1 Each Capsule, 1 CAP PO DAILY Magnesium Oxide (Magnesium) 500 Mg Capsule, 500 MG PO DAILY Midodrine HCl (Midodrine HCl) 5 Mg Tab, 5 MG PO BID Pantoprazole Sodium (Pantoprazole Sodium) 40 Mg Tab, 40 MG PO BID Pravastatin Sodium (Pravastatin Sodium) 80 Mg Tab, 80 MG PO QHS Prednisone (Prednisone) 2.5 Mg Tab, 2.5 MG PO DAILY Ranolazine (Ranexa) 500 Mg Tab.er.12h, 500 MG PO BID Ropinirole HCl (Ropinirole HCl) 1 Mg Tab, 1 MG PO QHS Thiamine HCl (Vitamin B-1) 250 Mg Tab, 250 MG PO DAILY Scheduled PRN Acetaminophen (Acetaminophen) 500 Mg Tab, 1,000 MG PO BID PRN for PAIN Bisacodyl (Dulcolax) 5 Mg Tab, 5 MG PO DAILY PRN for CONSTIPATION Docusate Sodium (Colace) 100 Mg Capsule, 100 MG PO DAILY PRN for CONSTIPATION Melatonin (Melatonin) 10 Mg Tablet.er, 15 MG PO QHS PRN for INSOMNIA Nitroglycerin (Nitrostat) 0.4 Mg Subl, 0.4 MG SL NITRO PRN for CHEST PAIN Ondansetron HCl (Zofran) 4 Mg Tab, 4 MG PO Q8H PRN for NAUSEA Phenyleph/Pramoxin/Glycr/W.pet (Preparation H Cream) 26 Gm Cream..g., 1 APLCT TOP BID PRN for HEMORRHOIDS Simethicone (Simethicone) 80 Mg Chew, 80 MG PO Q6H PRN for GAS PAIN Allergies Coded Allergies: shellfish derived (Verified Allergy, Unknown, 06/25/18) Contrast Media (Unverified Adverse Reaction, Mild, KIDNEY PROBLEMS, 04/24/18) hydralazine (Unverified Adverse Reaction, Mild, DIZZINESS, 06/25/18) A-FIB/CHADSVASC A-FIB History Current/History of A-Fib/PAF?: No GME ATTESTATION GME ATTESTATION My faculty preceptor for this patient encounter was physically present during the encounter and was fully available. All aspects of the patient interview, examination, medical decision making process, and medical care plan development were reviewed and approved by the faculty preceptor. The faculty preceptor is aware and concurs with the plan as stated in the body of this note and will atte st to such by his/her cosignature. ATTENDING NOTE Patient seen with and examined at bedside in ED was present at the bedside Guest discussed with the ED physician, Dr. Gilbert, and resident physician, Dr. De La Cruz . We will admit patient to observation with possible TIA versus postherpetic neuralgia Dr. Griffith. He didn't was called for neurology consultation by ED and he r ecommended to continue aspirin and Plavix As patient has multiple back surgery, pacemaker and hardware in his body. MRI cannot be done Will repeat CAT scan as per neurology's recommendation Speech and swallow evaluation. Till then. Patient will be kept nothing by mouth Physical therapy and occupational therapy evaluation also will be requested Will continue all home medications. In the meantime ROLF DE LA CRUZ DO August 20, 2018 14:08 PIPPA DYSON MD August 20, 2018 16:37
[2018-08-20] MEDS ORDERED: DEXTROSE 50% 50 ML SYRINGE IV PRN (14:45)
[2018-08-20] MEDS ORDERED: GLUCOSE 4 GM CHEW TABLET PO PRN (14:45)
[2018-08-20] MEDS ORDERED: GLUCAGON FOR INJ 1 MG VIAL (J1610) SC PRN (14:45)
--- NOTE | 2018-08-20 17:05 | REP ---
Clinical: Cerebrovascular accident. Technique: Gilbert scale and color Doppler evaluation using linear high frequency transducer Findings: Two-dimensional gilbert scale and color images demonstrate bilateral areas of mixed atheromatous plaquing with significant calcified plaque in the proximal right internal carotid artery causing area of stenosis as well as significant calcified plaque in the proximal left external carotid artery causing significant stenosis. Color Doppler interrogation demonstrates areas of spectral broadening. Normal flow direction is appreciated in the bilateral vertebral arteries. RIGHT (cm/s) LEFT (cm/s) ICA peak systolic velocity 309 125 ICA diastolic velocity 106 32 ECA peak systolic velocity 137 255 CCA peak systolic velocity 91 93 ICA/CCA ratio 4.2 1.5 Impression: 1. Narrowing in the proximal right internal carotid artery in the greater than 70% range. 2. Narrowing of the external carotid artery approaching the 70% range. Electronically Signed by Alfred Jordan MD 08/20/2018 04:57 P
--- NOTE | 2018-08-20 17:57 | CR ---
DATE OF CONSULTATION: 08/20/2018 REQUESTING PHYSICIAN: Dr. Isabel Gilbert in the emergency room. CONSULTING PHYSICIAN: Dr. 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 CHIEF COMPLAINT: The patient was sent from dialysis center because of right-sided facial numbness during hemodialysis. HISTORY OF PRESENT ILLNESS: Mr. Solitario Clark is a 63-year-old male with past medical history of end-stage renal disease, on hemodialysis every Wednesday, , Wednesday, history of cerebrovascular accident (CVA) in the past, diabetes mellitus, type 2, history of coronary artery disease and history of almost 29 stents in the heart, systolic congestive heart failure, multiple other comorbidities as mentioned below. He was getting his hemodialysis today at the outpatient dialysis center. He started having right-sided facial numbness and tongue numbness while he was being dialyzed. He finished his 4-hour dialysis; however, after finishing his dialysis he was sent to the emergency room for further evaluation. He did not have any slurred speech. He did have difficulty with fine motor skills of his hands. I saw and evaluated the patient in the emergency room today. The patient reports that he still has numbness, but he denies any more weakness at this point. PAST MEDICAL HISTORY: 1. End-stage renal disease, on hemodialysis every Wednesday, , Wednesday. 2. History of ischemic cardiomyopathy with biventricular failure and severe primary hypertension. Left ventricular ejection fraction of around 35% as of April 2018. 3. History of severe coronary artery disease, status post coronary artery bypass grafting and about 29 stents in the heart. 4. History of left posterior cerebral artery stroke in the past. 5. Chronic obstructive pulmonary disease (COPD), requiring oxygen at home. 6. Hyperlipidemia. 7. Diabetes mellitus, type 2. 8. Chronic gout secondary to chronic kidney disease. 9. Gastroparesis PAST SURGICAL HISTORY: 1. Status post coronary artery bypass grafting. 2. Status post cholecystectomy. 3. Status post cataract surgery. 4. Status post left hip surgery, which was complicated by left pelvic fracture. 5. Status post pacemaker placement and 29 stents in the heart, as mentioned above. ALLERGIES: He is allergic to CONTRAST MEDIA, HYDRALAZINE, and shellfish. FAMILY HISTORY: No significant family history of end-stage renal disease requiring hemodialysis. SOCIAL HISTORY: The patient lives at home with his . He denies any smoking, alcohol abuse, or drug abuse. REVIEW OF SYSTEMS: CONSTITUTIONAL: He denies any fevers or chills. EYES: He denies any blurry vision, double vision. ENT: He denies any dysphagia, odynophagia. He does report right-sided facial numbness. CARDIOVASCULAR: He reports history of severe coronary artery disease and history of congestive heart failure, but he denies any palpitation. RESPIRATORY: He denies any shortness of breath or wheezing. GASTROINTESTINAL: He denies any nausea or vomiting. GENITOURINARY: He denies any dysuria or hematuria. MUSCULOSKELETAL: He denies any muscle aches or pains. PSYCHIATRIC: He denies any depression or anxiety. CENTRAL NERVOUS SYSTEM: He reports right-sided facial numbness. SKIN: He denies any rashes or ulcers. HEMATOLOGIC/ONCOLOGIC: He denies any easy bleeding or bruising. All other review of systems is negative. PHYSICAL EXAMINATION: GENERAL: The patient is awake, alert, oriented times three, sitting up in the bed in no apparent distress. VITAL SIGNS: Temperature is 97.2 degrees Fahrenheit, blood pressure 129/59, pulse is 94, respiratory rate 17, saturating 98% on room air. HEAD AND NECK: Extraocular muscles intact. Pupils equally round and reactive to light. Mucous membranes are moist. Neck is supple. There is no jugular venous distention (JVD). CARDIOVASCULAR: S1, S2, regular rate. No edema of the bilateral lower extremities. RESPIRATORY: Chest is clear to auscultation bilaterally. Bilateral equal air entry. No rales or rhonchi. ABDOMEN: Soft. Positive bowel sounds. Nontender. No organomegaly. MUSCULOSKELETAL: No clubbing or cyanosis. Pulses are 2+. CENTRAL NERVOUS SYSTEM: No focal deficit. Power is 5/5 in all extremities. He does have decreased sensation in the right cheek and right side of his lips. SKIN: No rashes or ulcers. PSYCHIATRIC: Normal mood and affect. LABORATORY REVIEW: CBC showed a WBC of 7.1, hemoglobin is 12, platelets of 205. INR is 1.02. BMP showed sodium 138, potassium 3.3, chloride 98, bicarbonate 30, BUN 18, creatinine is 3. Troponin is 0.10. IMAGING STUDIES: A stat CT head showed age-related atrophy and microvascular ischemic changes. Old left posterior cerebral artery infarct with encephalomalacia. No acute intracranial hemorrhage or infarct was seen. CURRENT MEDICATIONS - Tylenol as needed - aspirin 81 mg daily - Dulcolax as needed - Coreg 3.125 mg by mouth twice a day - Plavix 75 mg by mouth daily - Colace as needed - Uloric 40 mg at bedtime - gabapentin 100 mg at bedtime - heparin every 12 hours subcutaneous - insulin sliding scale - midodrine 5 mg by mouth twice a day - Protonix 40 mg by mouth twice a day - pravastatin 80 mg at bedtime - prednisone 2.5 mg by mouth daily - Ranexa 500 mg by mouth twice a day - Requip 1 mg at bedtime - simethicone 80 mg every 6 hours as needed - thiamine 250 mg by mouth daily - vitamin D 2000 units by mouth daily ASSESSMENT: A 63-year-old male with past medical history of ischemic cardiomyopathy with biventricular failure, end-stage renal disease, on hemodialysis, severe coronary artery disease, history of cerebrovascular accident (CVA) in the past, diabetes mellitus, type 2, admitted at this time with right-sided facial numbness. PLAN: 1. End-stage renal disease, on hemodialysis. The patient's regular dialysis days are Wednesday, , Wednesday. He received dialysis today morning. No need of dialysis at this point. Next hemodialysis will be as per his regular schedule on Wednesday. 2. Right-sided facial numbness and tinging. The patient got the stat CT scan done, which did not show any acute pathology. Continue the neurologic checks. Patient is already on aspirin, Plavix, and statins. He cannot get the MRI done because of a pacemaker. Rest of the management is per neurology recommendations. The patient will need Doppler of the carotid arteries and echocardiogram. 3. Hypokalemia. Hypokalemia is because patient's lab was checked right after dialysis. No need of potassium repletion at this point. 4. Anemia and end-stage renal disease. Hemoglobin is 12, which is optimal. No need of Aranesp administration at this point. 5. Ischemic cardiomyopathy. The patient has combined systolic and diastolic congestive heart failure; however, volume status is optimal. Continue current dose of Coreg 3.125 mg by mouth twice a day. Volume status is optimized with dialysis. 6. Chronic gout secondary to end-stage renal disease. Continue current dose of Uloric 40 mg by mouth daily. 7. Restless leg syndrome. Continue home dose of Requip 1 mg by mouth at bedtime. . Thank you very involving me in the care of this patient. I shall be happy to follow the patient along with you tomorrow morning. Plan of care was already discussed with the ER physician, Dr. Isabel Gilbert. The patient will be admitted for observation.
[2018-08-20] MEDS: HumaLOG INSULIN (NovoLOG) PER UNIT SC SCH ×2 (18:00→23:56)
--- NOTE | 2018-08-20 19:34 | ECGEPIP ---
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
[2018-08-20 20:54] VITALS: BP 117/56
[2018-08-20] MEDS: HEPARIN SOD (PORCINE) 5000 UNITS/ML VIAL SC SCH (22:39)
[2018-08-20] MEDS: PRAVASTATIN 20 MG TAB PO SCH (22:46)
[2018-08-20] MEDS: GABAPENTIN 100 MG CAP PO SCH (22:46)
[2018-08-20] MEDS: PANTOPRAZOLE 40MG TAB (PROTONIX) PO SCH (22:46)
[2018-08-20] MEDS: RANOLAZINE 500 MG ER TAB PO SCH (22:46)
[2018-08-20] MEDS: CLOPIDOGREL 75 MG TAB PO SCH (22:46)
[2018-08-20] MEDS: FEBUXOSTAT 40 MG TABLET (ULORIC) PO SCH (22:47)
[2018-08-20] MEDS: rOPINIRole 1MG TAB PO SCH (22:47)
[2018-08-20] MEDS: DOCUSATE SODIUM 100 MG CAP PO PRN (22:47)
[2018-08-20] MEDS: MIDODRINE 5 MG TAB PO SCH (23:33)
[2018-08-20] MEDS ORDERED: POTASSIUM CHLORIDE 10 MEQ SR TABLET PO ONE (23:45)
[2018-08-21] MEDS: CARVedilol 3.125 MG TAB PO SCH ×3 (00:05→20:40)
[2018-08-21 05:53] LABS: HEMATOCRIT 32.9 % (42.0-52.0); HEMOGLOBIN 10.5 g/dl (13.5-17.5); MEAN CORPUSCULAR HEMOGLOBIN 30.2 pg (27.0-33.0); MEAN CORPUSCULAR HGB CONC 31.9 g/dl (32.0-36.5); MEAN CORPUSCULAR VOLUME 94.5 fl (80.0-96.0); PLATELET COUNT, AUTOMATED 175 10^3/uL (150-450); RED BLOOD COUNT 3.48 10^6/uL (4.30-6.10); WHITE BLOOD COUNT 6.4 10^3/uL (4.0-10.0)
[2018-08-21 06:00] VITALS: BP 104/51
[2018-08-21] MEDS: HumaLOG INSULIN (NovoLOG) PER UNIT SC SCH ×3 (06:00→17:17)
[2018-08-21 06:15] LABS: ALBUMIN 2.9 GM/DL (3.2-5.2); BILIRUBIN,TOTAL 0.5 MG/DL (0.2-1.0); CALCIUM LEVEL 9.5 MG/DL (8.8-10.2); CREATININE FOR GFR 5.3 MG/DL (0.70-1.30); GLOMERULAR FILTRATION RATE 11.8 (>49); MAGNESIUM LEVEL 2.1 MG/DL (1.8-2.4); POTASSIUM SERUM 4.5 MEQ/L (3.5-5.1); TOTAL PROTEIN 7.9 GM/DL (6.4-8.2)
[2018-08-21] MEDS: HEPARIN SOD (PORCINE) 5000 UNITS/ML VIAL SC SCH ×2 (09:00→20:25)
--- NOTE | 2018-08-21 09:23 | REP ---
Clinical: Acute cerebrovascular accident. Comparison: 08/20/2018 . Findings: Age-related atrophy and microvascular ischemic changes are appreciated. Chronic encephalomalacia involving the left parieto-occipital lobe again noted and unchanged. The ventricles and sulci are symmetric. Gilbert-white differentiation is relatively maintained. There is no evidence for acute intracranial hemorrhage, mass/mass effect, pathology or infarction. No extra-axial fluid collection. Calvarium is intact. Paranasal sinuses and mastoid air cells are clear. Impression: Age related atrophy and microvascular ischemic changes along with evidence for old left posterior infarction. No acute intracranial hemorrhage, infarction, or mass/mass effect. Electronically Signed by Alfred Jordan MD 08/21/2018 09:15 A
[2018-08-21] MEDS: VITAMIN D 1,000 INTERNATIONAL UNITS TABLET PO SCH (09:42)
[2018-08-21] MEDS: RANOLAZINE 500 MG ER TAB PO SCH ×2 (09:42→20:40)
[2018-08-21] MEDS: PANTOPRAZOLE 40MG TAB (PROTONIX) PO SCH ×2 (09:42→20:40)
[2018-08-21] MEDS: predniSONE 2.5 MG TAB PO SCH (09:43)
[2018-08-21] MEDS: ASPIRIN 81 MG ENTERIC TAB PO SCH (09:43)
[2018-08-21] MEDS: THIAMINE 100 MG TAB PO SCH (09:43)
[2018-08-21] MEDS: MIDODRINE 5 MG TAB PO SCH ×2 (09:45→17:17)
[2018-08-21] MEDS ORDERED: HumaLOG INSULIN (NovoLOG) PER UNIT SC SCH ×2 (12:00→21:00)
[2018-08-21] MEDS ORDERED: GLUCAGON FOR INJ 1 MG VIAL (J1610) SC PRN ×2 (12:15)
[2018-08-21] MEDS ORDERED: DEXTROSE 50% 50 ML SYRINGE IV PRN ×2 (12:15)
[2018-08-21] MEDS ORDERED: GLUCOSE 4 GM CHEW TABLET PO PRN ×2 (12:15)
[2018-08-21 14:00] VITALS: BP 116/56
--- NOTE | 2018-08-21 15:05 | IPNPDOC ---
Date Seen The patient was seen on 08/21/18. Progress Note SUBJECTIVE: Patient continues to complain of some numbness and tingling on the right side of his mouth and tongue it is improved from the previous day but has not completely resolved he otherwise denies any paralysis or paresthesias or dysarthria and dysphagia otherwise patient denies chest pain, shortness breath, nausea, vomiting, fevers, chills OBJECTIVE PHYSICAL EXAMINATION: VITAL SIGNS: Please see below. GENERAL: Pleasant man sitting up in bed awake alert oriented speaking in complete sentences no acute distress HEENT: Moist mucous membranes no elevation and CVP CARDIOVASCULAR: S1 S2 regular no additional heart sounds appreciated. RESPIRATORY: Clear to auscultation bilaterally. ABDOMINAL: Bowel sounds present abdomen soft and nontender EXTREMITIES: No clubbing cyanosis or edema NEUROLOGICAL: Spontaneously moves all 4 extremities cranial 2 through 12 grossly intact no gross focal deficits appreciated PSYCHOLOGICAL: Appropriate LABORATORY DATA, MICROBIOLOGY: Please see below. IMAGING STUDIES: CT head on admission:Age related atrophy and microvascular ischemic changes. Old left posterior cerebral infarction with encephalomalacia. No acute intracranial hemorrhage, infarction, or mass/mass effect. Chest x-ray:No acute cardiopulmonary process appreciated Vascular ultrasound:1. Narrowing in the proximal right internal carotid artery in the greater than 70% range. 2. Narrowing of the external carotid artery approaching the 70% range. Repeat CT head 08/21/2018:Age related atrophy and microvascular ischemic changes along with evidence for old left posterior infarction. No acute intracranial hemorrhage, infarction, or mass/mass effect. DVT prophylaxis ordered?: Heparin every 12 ASSESSMENT AND PLAN: This is a 63-year-old man with a history of CVA and end- stage renal disease with right facial and tongue numbness. PROBLEMS: 1. Right facial tongue paresthesias: Given his history is certainly at risk for CVA, likely if he has actually had a CVA the symptoms are improving but not completely resolved. He was initially made nothing by mouth however at this time his symptoms are quite minimal provided with a mechanical soft diet with nectar thickened liquids and see how it does over the next 1-2 days until a formal swallowing evaluation can be completed on Wednesday. Physical therapy occupational therapy have been ordered. I did speak with neurology who will be able to see the patient consultation today. His symptoms appear to be fairly mild. He is on a baby aspirin Plavix as well as statin. His blood pressure is controlled. I'll add a TSH and a hemoglobin A1c onto his labs. Carotid duplexes unrevealing for any significant stenosis. An echocardiogram has been ordered 2. End-stage renal disease on hemodialysis: Nephrology help is greatly appreciated. He is on midodrine twice a day 3. Combined chronic systolic diastolic congestive heart failure: He is euvolemic block status optimized via hemodialysis. He is continued on a beta claudia. Secondary to ischemic cardiomyopathy 4. Coronary artery disease: He is on aspirin Plavix statin and beta claudia as well as Ranexa his symptoms are well-controlled 5. Restless leg syndrome: Continue with Requip 6. Gout: Secondary to renal disease continue with the Kathy Sumner is also on low-dose prednisone 7. Insulin-dependent diabetes: Continue with sliding scale finger 6 well- controlled 8. Anemia of end-stage renal disease: Currently acceptable nephrology following to help appreciated 9. Dyslipidemia: Continue statin 10. Chronic hypoxic respiratory failure: Secondary to COPD is at his baseline respiratory status continue supplemental O2 11. Chronic constipation: Continue with Dulcolax and Colace 12. Gastroesophageal reflux disease: Continue with PPI DISPOSITION: Pending neurology eval and echocardiogram, P/TOT/ speech therapy. VS, I&O, 24H, Fishbone Vital Signs/I&O Vital Signs Date Time Temp Pulse Resp B/P (MAP) Pulse Ox O2 Delivery O2 Flow Rate FiO2 08/21/18 14:00 96.4 82 17 116/56 (76) 100 3.0 08/20/18 11:15 Room Air I&O- Last 24 Hours up to 6 AM 08/21/18 06:00 Intake Total 0 ml Balance 0 ml Laboratory Data 24H LABS Laboratory Tests 2 08/20/18 23:53: Bedside Glucose (Misc Panel) 114 08/21/18 05:14: Nucleated Red Blood Cells % (auto) 0.0, Anion Gap 8, Glomerular Filtration Rate 11.8L, Blood Urea Nitrogen 33#H, Creatinine 5.30#H, Sodium Level 139, Potassium Level 4.5#, Chloride Level 102, Carbon Dioxide Level 29, Calcium Level 9.5, Aspartate Amino Transf (AST/SGOT) 20, Alanine Aminotransferase (ALT/SGPT) 17, Alkaline Phosphatase 89, Total Bilirubin 0.5, Total Protein 7.9, Albumin 2.9L, Magnesium Level 2.1, Albumin/Globulin Ratio 0.58L 08/21/18 06:13: Bedside Glucose (Misc Panel) 91 08/21/18 09:30: Bedside Glucose (Misc Panel) 103 08/21/18 11:20: Bedside Glucose (Misc Panel) 98 CBC/BMP Laboratory Tests 08/21/18 05:14 Red Blood Count 3.48 L, Mean Corpuscular Volume 94.5, Mean Corpuscular Hemoglobin 30.2, Mean Corpuscular Hemoglobin Concent 31.9 L, Red Cell Distribution Width 14.1, Calcium Level 9.5, Aspartate Amino Transf (AST/SGOT) 20, Alanine Aminotransferase (ALT/SGPT) 17, Alkaline Phosphatase 89, Total Bilirubin 0.5, Total Protein 7.9, Albumin 2.9 L ЮЛИЯ PALOMO MD August 21, 2018 15:05
[2018-08-21 15:27] LABS: THYROID STIMULATING HORMONE 0.664 uIU/ML (0.358-3.740)
[2018-08-21 16:27] LABS: HEMOGLOBIN A1c 8.6 %
[2018-08-21] MEDS: CLOPIDOGREL 75 MG TAB PO SCH (20:40)
[2018-08-21] MEDS: rOPINIRole 1MG TAB PO SCH (20:40)
[2018-08-21] MEDS: FEBUXOSTAT 40 MG TABLET (ULORIC) PO SCH (20:40)
[2018-08-21] MEDS: DOCUSATE SODIUM 100 MG CAP PO PRN (20:40)
[2018-08-21] MEDS: PRAVASTATIN 20 MG TAB PO SCH (20:40)
[2018-08-21] MEDS: GABAPENTIN 100 MG CAP PO SCH (20:40)
[2018-08-21 22:00] VITALS: BP 120/67
--- NOTE | 2018-08-22 00:44 | IPN ---
DATE: 08/21/2018 SUBJECTIVE: The patient was seen and examined at the bedside today morning. He is afebrile, hemodynamically stable. He voiced that the right-sided facial numbness is improving. He is pending a swallowing evaluation. Repeat CAT scan did not show any acute pathology. OBJECTIVE: VITAL SIGNS: Temperature is 98.2 degrees Fahrenheit. Blood pressure 104/51, pulse is 79, respiratory rate of 17, saturating 99% on nasal cannula at 3 liters. Intake and output. There is no urine output recorded. Weight in the bed scale is 72.5 kg. PHYSICAL EXAMINATION: GENERAL: The patient is awake, alert, oriented x3, laying in bed in no apparent distress. HEAD AND NECK EXAM: Extraocular muscles intact. Pupils equally round and reactive to light. The patient has bilateral decreased vision. Neck is supple. There is no jugular venous distention (JVD). CARDIOVASCULAR: S1, S2 regular rate. Trace edema of the bilateral lower extremities. RESPIRATORY: Chest is clear to auscultation bilaterally. Bilateral equal air entry. No rales or rhonchi. ABDOMEN: Soft. Positive bowel sounds. Nontender. No organomegaly. MUSCULOSKELETAL: No clubbing or cyanosis. Pulses are 2+. 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 Power is 5/5 in all extremities. SKIN: No rashes or ulcers. PSYCHIATRIC: Normal mood and affect. LABORATORY REVIEW: Complete blood count (CBC) showed white blood cell (WBC) 6.4, hemoglobin 10.5, platelets of 175. Basic metabolic panel (BMP) showed sodium 139, potassium 4.5, chloride 102, bicarbonate 29, BUN 33, creatinine is 5.3, A1c is 8.6. IMAGING STUDIES: Repeat CAT scan of the head was done today morning which showed age-related atrophy and microvascular ischemic changes, old left posterior infarct, no acute intracranial pathology was noted. CURRENT INPATIENT MEDICATIONS: The patient's medications were all reviewed by me. There is no change in the medications today as compared with yesterday. ASSESSMENT/PLAN: 1. End-stage renal disease on hemodialysis. The patient's regular dialysis days are Wednesday, and Wednesday. He finished his hemodialysis yesterday. Next hemodialysis will be on Wednesday as per his regular schedule. 2. Right-sided facial numbness and tingling. Repeat CAT scan did not show any acute pathology. He cannot get MRI done. Continue aspirin and Plavix and statins. His symptoms are improving. 3. Anemia in end-stage renal disease, hemoglobin is 10.5 which is optimal. If the patient stays in the hospital until Wednesday he will be given a dose of Aranesp with dialysis. 4. Ischemic cardiomyopathy. The patient has a combined systolic and diastolic congestive heart failure. Volume status is optimal. Continue current dose of Coreg. No need of diuretics. 5. Dysphagia. The patient is pending a swallow evaluation.
[2018-08-22 06:00] VITALS: BP 120/60
[2018-08-22 06:02] LABS: HEMATOCRIT 33.3 % (42.0-52.0); HEMOGLOBIN 10.5 g/dl (13.5-17.5); MEAN CORPUSCULAR HEMOGLOBIN 30.7 pg (27.0-33.0); MEAN CORPUSCULAR HGB CONC 31.5 g/dl (32.0-36.5); MEAN CORPUSCULAR VOLUME 97.4 fl (80.0-96.0); PLATELET COUNT, AUTOMATED 176 10^3/uL (150-450); RED BLOOD COUNT 3.42 10^6/uL (4.30-6.10); WHITE BLOOD COUNT 6.8 10^3/uL (4.0-10.0)
[2018-08-22 06:31] LABS: CALCIUM LEVEL 9.5 MG/DL (8.8-10.2); CREATININE FOR GFR 7.55 MG/DL (0.70-1.30); GLOMERULAR FILTRATION RATE 7.8 (>49); POTASSIUM SERUM 5.1 MEQ/L (3.5-5.1)
--- NOTE | 2018-08-22 07:29 | ECHO ---
DATE OF PROCEDURE: 08/20/2018 REFERRING PHYSICIAN: Dr. Winchester PATIENT LOCATION: [facility] area. REASON FOR ECHOCARDIOGRAM: CVA. 2D MEASUREMENTS: IVS: 1.1 cm LV: 5.7 cm LVPW: 1.2 cm LA: 4.8 cm Aorta: 3.0 cm IVC: 2.2 cm DOPPLER MEASUREMENTS: Peak velocity across the aortic valve: 2.0 m/s Peak velocity across the LVOT: 0.78 m/s Mitral E: 1.1, Mitral A: 0.41 with a ratio of greater than 1.0 Maximum tricuspid valve velocity: 3.0 m/s 2D COMMENTS: 1. Mildly enlarged left ventricle with normal left ventricular wall thickness, but depressed global left ventricular systolic function. The estimated left ventricular systolic ejection fraction is between 30% and 35%. 2. Mildly enlarged left atrium. The right atrium also appeared to be enlarged. Normal right ventricle noted in limited views. 3. Normal aortic root. 4. No pericardial effusion seen. 5. Mildly calcified aortic valve with mildly restricted leaflet motion. Mildly calcified mitral annulus with normal anterior mitral valve leaflet motion. Normal tricuspid valve. The pulmonic valve and proximal pulmonary artery branches were not well visualized. 6. The inferior vena cava was dilated, central venous pressure might be elevated. DOPPLER: It detects mild aortic regurgitation, mild mitral regurgitation, and mild to moderate tricuspid regurgitation. The calculated pulmonary artery systolic pressure varies between 40-50 mmHg. IMPRESSION 1. Moderate global left ventricular systolic dysfunction with regional wall motion abnormalities, the anterior septum appeared to be markedly hypokinetic. 2. Aortic valve sclerosis with mild aortic radiation and trivial aortic stenosis. 3. Mitral annulus calcification with moderately enlarged left atrium and mild mitral regurgitation. 4. Mild to moderate tricuspid regurgitation with moderate pulmonary hypertension. 5. Not mentioned above, pacemaker wire artifacts noted in the right heart chambers. 6. This inferior vena cava was dilated, central venous pressure might be elevated.
[2018-08-22] MEDS: HEPARIN SOD (PORCINE) 5000 UNITS/ML VIAL SC SCH (07:43)
[2018-08-22] MEDS: ASPIRIN 81 MG ENTERIC TAB PO SCH (07:54)
[2018-08-22] MEDS: HumaLOG INSULIN (NovoLOG) PER UNIT SC SCH ×3 (07:54→17:05)
[2018-08-22 07:55] VITALS: BP 118/68
[2018-08-22] MEDS: THIAMINE 100 MG TAB PO SCH (07:55)
[2018-08-22] MEDS: PANTOPRAZOLE 40MG TAB (PROTONIX) PO SCH (07:55)
[2018-08-22] MEDS: CARVedilol 3.125 MG TAB PO SCH (07:55)
[2018-08-22] MEDS: RANOLAZINE 500 MG ER TAB PO SCH (07:55)
[2018-08-22] MEDS: MIDODRINE 5 MG TAB PO SCH ×2 (07:56→17:04)
[2018-08-22] MEDS: VITAMIN D 1,000 INTERNATIONAL UNITS TABLET PO SCH (07:56)
[2018-08-22] MEDS: predniSONE 2.5 MG TAB PO SCH (07:56)
[2018-08-22 14:00] VITALS: BP 117/67
--- NOTE | 2018-08-22 14:26 | IPNPDOC ---
Text Note Date of Service The patient was seen on 08/22/18. NOTE SUBJECTIVE: Mr. Clark was sitting on the side of his bed during rounds this morning, he is comfortable and in NAD. He does state his tingling on his tongue and roof of his mouth are improved albeit still present. He otherwise denies any chest pain, shortness breath, nausea, vomiting, numbness or paralysis or weakness in any extremity. ROS: 12 point review of systems was reviewed with patient and negative except for what was mentioned in subjective OBJECTIVE PHYSICAL EXAMINATION: VITAL SIGNS: Please see below. GENERAL: 63 year old male appearing his stated age, sitting up in bed this morning, he is awake alert oriented speaking in complete sentences no acute dis tress HEENT: EOMI, moist mucus membranes CARDIOVASCULAR: S1 S2 regular, I can appreciate a +2 systolic murmur likely of TR, no additional heart sounds appreciated RESPIRATORY: Clear to auscultation bilaterally without rales or crackles/wheezing ABDOMINAL: nabsx4, no hepatosplenomegaly, no rebound ridgity or guarding, no distension, abdomen soft and nontender EXTREMITIES: No clubbing cyanosis or edema NEUROLOGICAL: Spontaneously moves all 4 extremities cranial 2 through 12 grossly intact no gross focal deficits appreciate, sensation, strength and reflexes preserved for b/l upper and lower extremities. PSYCHOLOGICAL: Affect Appropriate LABORATORY DATA, MICROBIOLOGY: Please see below. ASSESSMENT AND PLAN: This is a 63 year old male who was admitted for acute onset of buccal and tongue paresthesias. PROBLEMS: 1. Right facial tongue paresthesias and globus sensation -This seems to be improving for the patient, however is not resolved. He describes an extensive family history of CVA disease ( father, brother, sister all have perished from massive RI's) and the patient himself has had 29 coronary stents along with x2 CABG. He is tolerating mechanical soft diet, but still admits sometimes it feels as though the food gets stuck just superior to his laryngeal prominence. He will have a formal swallowing evaluation tomorrow. Physical therapy occupational therapy have been ordered and they have cleared him. He is on a baby aspirin, Plavix as well as a statin. TSH was WNL. The [facility] HgA1C was 8.6, he is not at goal A1C. His blood pressure is controlled. Carotid duplexes showed about 70% stenosis b/l. An echocardiogram showed EF of about 35% with regional wall LV abnormaltiies with hypokinetic anterior septum, aortic sclerosis and mild AR and trivial with mild to moderated TR and moderate pulmonary HTN and possible elevated CVP. Neurology has also been consulted. 2. End-stage renal disease on hemodialysis -He follows a T,R,Sa schedule and should be dialyzed tomorrow accordingly. Nephrology help is greatly appreciated. 3. Combined chronic systolic diastolic congestive heart failure -he is euvolemic, he is fluid optimized with HD. He c/w beta claudia therapy and ranolazine therapy. 4. Coronary artery disease c/w ASA, plavix and beta claudia. 5. Restless leg syndrome -continue with home Requip 6. Gout: -stable at this point, he is an ESRD patient, continue with prednisone 7. Insulin-dependent diabetes -c/w sliding scale insulin 8. Anemia of end-stage renal disease -H/H today is 10.5/33.3, stable 9. Dyslipidemia -s/w statin therapy 10. Chronic hypoxic respiratory failure -he is not requiring O2 at this time, secondary to COPD, he seems near baseline respiratory status 11. Chronic constipation -c/w dulcolax, mylicon and colace 12. Gastroesophageal reflux disease -c/w PPI DISPOSITION: Pending neurology evaluation and swallow study. Cleared by PT. Natalia SANCHEZ, I+O Natalia SANCHEZ, I+O Laboratory Tests 08/22/18 05:21 Red Blood Count 3.42 L, Mean Corpuscular Volume 97.4 H, Mean Corpuscular He moglobin 30.7, Mean Corpuscular Hemoglobin Concent 31.5 L, Red Cell Distribution Width 14.1, Calcium Level 9.5 Vital Signs Date Time Temp Pulse Resp B/P (MAP) Pulse Ox O2 Delivery O2 Flow Rate FiO2 08/22/18 07:55 70 118/68 08/22/18 06:00 96.9 18 100 08/21/18 14:00 08/20/18 11:15 Room Air I&O- Last 24 Hours up to 6 AM 08/22/18 06:00 Intake Total 760 ml Output Total 0 ml Balance 760 ml GME ATTESTATION GME ATTESTATION My faculty preceptor for this patient encounter was physically present during the encounter and was fully available. All aspects of the patient interview, examination, medical decision making process, and medical care plan development were reviewed and approved by the faculty preceptor. The faculty preceptor is aware and concurs with the plan as stated in the body of this note and will attest to such by his/her cosignature. ATTENDING NOTE I saw and evaluated the patient. I agree with the findings and plan of care as documented in the resident's note MARTINE CHOI DO August 22, 2018 14:26 ЮЛИЯ PALOMO MD August 26, 2018 14:52
--- NOTE | 2018-08-22 15:09 | CR ---
DATE OF CONSULTATION: 08/21/2018 REASON FOR CONSULTATION: Paresthesias of the right face. REFERRING PROVIDER: Sarah To MD HISTORY OF PRESENTING ILLNESS: Solitario Clark is a 63-year-old male with a past medical history significant for a prior left posterior occipitoparietal cerebral infarction, history of diabetes, end-stage renal disease on hemodialysis, history of coronary artery disease status post many stent placement, history of chronic obstructive pulmonary disease (COPD) with systolic heart failure. The patient presented to [facility] with transient right facial paresthesias around the corner of his right mouth. The patient states that these came on the first thing in the morning. They seem to be persistent. They were improving. He describes some numbness, tingling in his cheek, as well. The patient states that he has been experiencing this usually in the mornings after takes his continuous positive airway pressure (CPAP) mask off. The patient does have a pacemaker, and MRI is not possible. Head CT was obtained showing encephalomalacia of the right parietal occipital lobe. Repeat head CT the following day also showed the same finding without any acute stroke. He remains on aspirin 81 mg daily, Plavix 75 mg daily. He is on pravastatin 80 mg daily, as well. He states he has episodes of some slurred speech. He feels that he is not sleeping well, and fatigue may be contributing toward that symptom. He denies any numbness or weakness of the arms or legs from any baseline paresthesias from his diabetes. REVIEW OF SYSTEMS: 14-point review of system is obtained and is negative except as per history of present illness (HPI). PAST MEDICAL HISTORY: End-stage renal disease on hemodialysis Wednesday, , Wednesday. History of left posterior cerebral stroke. History of coronary artery disease status post coronary artery bypass graft (CABG) with multiple stents. History of COPD oxygen dependent. Systolic heart failure. Hyperlipidemia. Diabetes. Gout. Gastroparesis. PAST SURGICAL HISTORY: CABG. Back surgery. Cholecystectomy. Cataract surgery of the left eye. Left hip surgery. Pacemaker placement. SOCIAL HISTORY: The patient denies use of any tobacco, alcohol, or illicit drugs. FAMILY HISTORY: Noncontributory. ALLERGIES: SHELLFISH, CONTRAST MEDIA, HYDRALAZINE. HOME MEDICATIONS: Aspirin 81 mg by mouth every day, calcitriol 0.25 mcg by mouth three times a week, carvedilol 3.125 mg by mouth twice a day, cholecalciferol 1000 international units two tablets by mouth every day, Plavix 75 mg by mouth nightly, Uloric 40 mg by mouth nightly, folic acid 2400 mcg by mouth every day, gabapentin 100 mg by mouth nightly, Toujeo SoloStar 30 units subcutaneous at bedtime, humulin lantus 1 unit dose subcutaneous with meals, acidophilus one capsule by mouth every day, magnesium oxide 500 mg by mouth every day, midodrine 5 mg by mouth twice a day, pantoprazole 40 mg by mouth twice a day, pravastatin 80 mg by mouth nightly, prednisone 2.5 mg by mouth every day, Ranexa 500 mg by mouth twice a day, ropinirole 1 mg by mouth nightly, thiamine 250 mg by mouth every day. PHYSICAL EXAMINATION: Blood pressure is 116/56, pulse rate 82, respiratory rate is 17, oxygenation 100% on 2 liters nasal cannula, temperature 96.4 degrees Fahrenheit. The patient is awake, alert, oriented to person, place, and time. Speech, language, comprehension, and repetition are intact without any dysarthria or aphasia. Pupils on the left eye are postsurgical. 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 Sensation V1, V2, V3 is intact to light touch. There is no facial asymmetry to activation. Palate elevates symmetrically. Tongue is midline. No weakness of sternocleidomastoids bilaterally. Hearing is subjectively equal to finger rub. There is no pronator drift. Strength is 5/5, including bilateral deltoids, biceps, triceps, handgrip, iliopsoas, quadriceps, anterior tibialis. Deep tendon reflexes are reduced throughout with 2s at the triceps. Sensory is intact to light touch in all four extremities. Coordination: There is no gross ataxia or dysmetria. Gait deferred. ASSESSMENT: Paresthesias involving V2 of the right face, possibly secondary to compression of the V2 sensory branches due to CPAP mask. Cannot entirely exclude a small lacunar stroke of which cannot be picked up on head CT. MRI not possible due to pacemaker. PLAN: Continue aspirin 81 mg by mouth every day, Plavix 75 mg by mouth every day, pravastatin 80 mg by mouth nightly. Optimize diabetes, hypertension, hyperlipidemia. Continue telemetry monitoring. The patient can followup with the outpatient neurology clinic 6-8 weeks after discharge.
--- NOTE | 2018-08-22 15:59 | IPN ---
DATE OF SERVICE: 08/22/2018 SUBJECTIVE: The patient was seen and examined at the bedside today morning. He is afebrile, hemodynamically stable. The patient reports that he is still having numbness of the right side face and tongue. He otherwise denies any weakness of any extremity. He is afebrile, hemodynamically stable. OBJECTIVE: Vital signs: Temperature is 96.8 degrees Fahrenheit, blood pressure 117/67, pulse is 76, respiratory rate of 17, saturating 100% on room air. Intake and output. There is no urine output recorded. PHYSICAL EXAMINATION: General: The patient is awake, alert, oriented times three, sitting up in the bed, in no apparent distress. Head and neck examination: The patient has poor vision. Mucous membranes are moist. Neck is supple. There is no jugular venous distention (JVD). He has a right internal jugular (vein) (IJ) tunneled hemodialysis catheter. Cardiovascular: S1, S2, regular rate. No edema of the bilateral lower extremities. Respiratory: Chest is clear to auscultation bilaterally. Bilateral equal air entry. No rales or rhonchi. Abdomen: Soft. Positive bowel sounds. Nontender. No organomegaly. Musculoskeletal: No clubbing or cyanosis. Pulses are 2+. Central nervous system (PHYSICAL EDUCATION DEPARTMENT CHAIR): No focal deficit apart from decreased vision. Power is 5/5 in all extremities. Numbness of the right side of his face. Skin: No rashes or ulcers. LABORATORY REVIEW: Complete blood count (CBC) showed a WBC 6.8, hemoglobin 10.5, platelets of 176. Basic metabolic profile (BMP) showed sodium 133, potassium 5.1, chloride 98, bicarbonate 28, BUN 55, creatinine 7.5, calcium 9.5. CURRENT INPATIENT MEDICATIONS: The patient's medications were all reviewed by me. There is no significant change in the medications today as compared with yesterday. ASSESSMENT AND PLAN: 1. End-stage renal disease, on hemodialysis. The patient's regular dialysis days are Wednesday, , Wednesday. He will be dialyzed tomorrow as per his regular schedule. Volume status is optimal. 2. Right-sided facial paresthesia. The patient was seen by neurology. Continue current dose of aspirin, Plavix, and statin as per neurology recommendations. It might be possible the patient is getting nerve compression with the continuous positive airway pressure (CPAP) mask verses a small stroke, and that cannot be ruled out on a CAT scan. 3. Ischemic cardiomyopathy. The patient has combined systolic, diastolic congestive heart failure. Volume status is optimal. Continue current dose of Coreg 3.125 mg by mouth twice a day. 4. Chronic hypotension. The patient continues to be on midodrine 5 mg by mouth twice a day.
[2018-08-22] MEDS ORDERED: AMIODARONE HCL 150 MG/100 ML PREMIXED BAG (NEXTERONE) As Ordered ONE (18:01)
--- NOTE | 2018-08-22 18:34 | DS.PDOC ---
Discharge Summary General Date of Admission August 22, 2018 at 09:38 Date of Discharge 08/22/2018 Discharge Summary Cause of : Severe systolic congestive heart failure SECONDARY DIAGNOSIS: 1.End-stage renal disease on hemodialysis 2. Coronary artery disease 3. Right facial paresthesias 4. Gout 5. Restless leg syndrome 6. Insulin dependent diabetes 7. Anemia of end-stage renal disease 8. Dyslipidemia 9. Chronic hypoxic respiratory failure 10. COPD 12. Gastroesophageal reflux disease PROCEDURES PERFORMED DURING STAY: None. CONSULTANTS:Nephrology and neurology HOSPITAL COURSE: Patient is a 63-year-old man who presented with right-sided facial numbness involving his upper lip and tongue. He was seen and evaluated by neurology there was concern that he may have had a small CVA versus facial nerve palsy secondary to a CPAP mask use. He was also in consultation by nephrology to undergo his regular hemodialysis. He and did undergo fairly extensive workup for CVA unfortunately he was unable to undergo an MRI secondary to pacemaker he has. The patient had been doing quite well and having some modest improvement in his symptoms throughout his course. Patient was being visited by his and health care proxy on the evening of 08/22/2018 when he was conversant eating and his usual self for her which point he fell backwards with his eyes closed became unresponsive and never returned to consciousness again. A rapid assessment was initially called which I made my way to by the time I arrived had been transitioned to a Max cart for cardiac arrest upon my arrival to the room the patient was already undergoing chest compressions and Dr. Rojas from pulmonary critical care was bedside with the patient. She formerly the patient was in PEA the patient did undergo greater than 20 minutes of highly effective ACLS with multiple rounds of epinephrine he did receive amiodarone bolus 300 total numerou s amps of bicarbonate. He did seem to cycle between ventricular tachycardia and PEA unfortunately we were never able to have a return of pulse or circulation. The patient's was bedside during the resuscitative efforts with witnessed all events during resuscitative efforts I did speak with the patient's bedside explaining what was going on she was to continue with efforts as we did after several more minutes she agreed that no more would likely help him and that he would not want this. She did reconfirm with me that he has had numerous other family members with significant cardiac disease suffered similar unfortunate fates Vital Signs/I&Os Vital Signs Date Time Temp Pulse Resp B/P (MAP) Pulse Ox O2 Delivery O2 Flow Rate FiO2 08/22/18 14:00 96.8 76 17 117/67 (84) 100 08/21/18 14:00 08/20/18 11:15 Room Air I&O- Last 24 Hours up to 6 AM 08/22/18 06:00 Intake Total 760 ml Output Total 0 ml Balance 760 ml Laboratory Data Labs 24H Laboratory Tests 2 08/21/18 20:21: Bedside Glucose (Misc Panel) 174H 08/22/18 05:21: Nucleated Red Blood Cells % (auto) 0.0, Anion Gap 7L, Glomerular Filtration Rate 7.8L, Blood Urea Nitrogen 55#H, Creatinine 7.55H, Sodium Level 133L, Potassium Level 5.1, Chloride Level 98, Carbon Dioxide Level 28, Calcium Level 9.5 08/22/18 11:27: Bedside Glucose (Misc Panel) 253H 08/22/18 16:30: Bedside Glucose (Misc Panel) 153H 08/22/18 18:08: Bedside Glucose (Misc Panel) 176H CBC/BMP Laboratory Tests 08/22/18 05:21 Red Blood Count 3.42 L, Mean Corpuscular Volume 97.4 H, Mean Corpuscular Hem oglobin 30.7, Mean Corpuscular Hemoglobin Concent 31.5 L, Red Cell Distribution Width 14.1, Calcium Level 9.5 FSBS Laboratory Tests Test 08/21/18 20:21 08/22/18 11:27 08/22/18 16:30 08/22/18 18:08 Range/Units Bedside Glucose (Misc Panel) 174 253 153 176 80-115 MG/DL Discharge Medications Scheduled Aspirin (Aspirin EC) 81 Mg Tab, 81 MG PO DAILY, (Reported) Calcitriol (Calcitriol) 0.25 Mcg Cap, 0.25 MCG PO 3XW, (Reported) WEDNESDAY, WEDNESDAY, WEDNESDAY Carvedilol (Carvedilol) 3.125 Mg Tab, 3.125 MG PO BID, (Reported) Cholecalciferol (Vitamin D3) (Vitamin D3) 1,000 Unit Tab, 2,000 UNIT PO DAILY, (Reported) Clopidogrel Bisulfate (Clopidogrel) 75 Mg Tab, 75 MG PO QHS, (Reported) Febuxostat (Uloric) 40 Mg Tablet, 40 MG PO QHS, (Reported) Folic Acid (Folic Acid) 800 Mcg Cap, 2,400 MCG PO DAILY, (Reported) Gabapentin (Gabapentin) 100 Mg Cap, 100 MG PO QHS, (Reported) Insulin Glargine,Hum.rec.anlog (Toujeo Solostar) 300 Unit/Ml Inj, 30 UNIT SC QHS, (Reported) Insulin Human Regular (Humulin R) 1 Units/0.01 Ml Soln, 1 DOSE SC ACHS, (Reported) PER SLIDING SCALE Lactobacillus Acidophilus (Acidophilus) 1 Each Capsule, 1 CAP PO DAILY, (Reported) Magnesium Oxide (Magnesium) 500 Mg Capsule, 500 MG PO DAILY, (Reported) Midodrine HCl (Midodrine HCl) 5 Mg Tab, 5 MG PO BID, (Reported) Pantoprazole Sodium (Pantoprazole Sodium) 40 Mg Tab, 40 MG PO BID, (Reported) Pravastatin Sodium (Pravastatin Sodium) 80 Mg Tab, 80 MG PO QHS, (Reported) Prednisone (Prednisone) 2.5 Mg Tab, 2.5 MG PO DAILY, (Reported) Ranolazine (Ranexa) 500 Mg Tab.er.12h, 500 MG PO BID, (Reported) Ropinirole HCl (Ropinirole HCl) 1 Mg Tab, 1 MG PO QHS, (Reported) Thiamine HCl (Vitamin B-1) 250 Mg Tab, 250 MG PO DAILY, (Reported) Scheduled PRN Acetaminophen (Acetaminophen) 500 Mg Tab, 1,000 MG PO BID PRN for PAIN, (Repo rted) Bisacodyl (Dulcolax) 5 Mg Tab, 5 MG PO DAILY PRN for CONSTIPATION, (Reported) Docusate Sodium (Colace) 100 Mg Capsule, 100 MG PO DAILY PRN for CONSTIPATION, (Reported) Melatonin (Melatonin) 10 Mg Tablet.er, 15 MG PO QHS PRN for INSOMNIA, (Reported) Nitroglycerin (Nitrostat) 0.4 Mg Subl, 0.4 MG SL NITRO PRN for CHEST PAIN, (Reported) Ondansetron HCl (Zofran) 4 Mg Tab, 4 MG PO Q8H PRN for NAUSEA, (Reported) Phenyleph/Pramoxin/Glycr/W.pet (Preparation H Cream) 26 Gm Cream..g., 1 APLCT TOP BID PRN for HEMORRHOIDS, (Reported) Simethicone (Simethicone) 80 Mg Chew, 80 MG PO Q6H PRN for GAS PAIN, (Reported) Allergies Coded Allergies: shellfish derived (Verified Allergy, Unknown, 06/25/18) Contrast Media (Unverified Adverse Reaction, Mild, KIDNEY PROBLEMS, 04/24/18) hydralazine (Unverified Adverse Reaction, Mild, DIZZINESS, 06/25/18) ЮЛИЯ PALOMO MD August 22, 2018 18:34
[2018-08-22] MEDS ORDERED: AMIODARONE HCL 150 MG/100 ML PREMIXED BAG (NEXTERONE) ONE (20:34)
[2018-08-22] MEDS ORDERED: CALCIUM CHLORIDE 10% 1 GM/10 ML SYR ONE (20:34)
[2018-08-22] MEDS ORDERED: SODIUM BICARBONATE 8.4% INJ 50MEQ 50 ML VIAL ONE (20:34)
[2018-08-22] MEDS ORDERED: EPINEPHrine 1MG/10ML SYRINGE 1.5IN ONE (20:34)
[2018-08-22] MEDS ORDERED: AMIODARONE 150MG/3ML INJ (J0282) ONE (20:34)
== END 2018-08-22 18:10 | disposition expired | DRG 64 ==
LOC: M ED 11:14 → M ED INP 14:14 → M MSPAV 20:54 → OBSVTOIN 08-22 09:38
PROVIDERS: ADMIT Internal Medicine; ATTEND Internal Medicine
DX: I63.9 Cerebral infarction, unspecified (principal); N18.6 End stage renal disease; I50.42 Chronic combined systolic (congestive) and diastolic (congestive) heart failure; J96.11 Chronic respiratory failure with hypoxia; E11.22 Type 2 diabetes mellitus with diabetic chronic kidney disease; I25.10 Atherosclerotic heart disease of native coronary artery without angina pectoris; I46.9 Cardiac arrest, cause unspecified; Z95.5 Presence of coronary angioplasty implant and graft; J44.9 Chronic obstructive pulmonary disease, unspecified; M10.30 Gout due to renal impairment, unspecified site; E78.5 Hyperlipidemia, unspecified; E11.43 Type 2 diabetes mellitus with diabetic autonomic (poly)neuropathy; K31.84 Gastroparesis; I25.5 Ischemic cardiomyopathy; D63.1 Anemia in chronic kidney disease; K59.09 Other constipation; G51.0 Bell's palsy; K21.9 Gastro-esophageal reflux disease without esophagitis; I95.89 Other hypotension; G25.81 Restless legs syndrome; E87.6 Hypokalemia; Z88.8 Allergy status to other drugs, medicaments and biological substances; Z99.2 Dependence on renal dialysis; Z90.49 Acquired absence of other specified parts of digestive tract; Z98.49 Cataract extraction status, unspecified eye; Z95.0 Presence of cardiac pacemaker; Z99.81 Dependence on supplemental oxygen; Z79.82 Long term (current) use of aspirin; Z79.4 Long term (current) use of insulin; Z79.52 Long term (current) use of systemic steroids; Z91.013 Allergy to seafood; Z79.899 Other long term (current) drug therapy; Z91.041 Radiographic dye allergy status